=== PATIENT | male | born 1955 | race Caucasian/White ===

== ENCOUNTER 2017-05-13 08:32 | Emergency (ER) | payer OTHER ==
[2017-05-13 08:39] VITALS: BMI 23.6
[2017-05-13 08:41] VITALS: O2SAT 95
[2017-05-13] MEDS ORDERED: Sodium Chloride 0.9% 1,000 ML IV ONE (09:04)
--- NOTE | 2017-05-13 09:06 | ED PDOC ---
Arrival/HPI - General Chief Complaint: Abdominal Pain Time Seen by Provider: 05/13/17 09:03 Historian: Patient - History of Present Illness Narrative History of Present Illness (Text): 05/13/17 09:04 61 year old male whose past medical history includes diabetes presents to the emergency department with diffuse abdominal pain for the past 3 months. Denies nausea, vomiting or hematochezia. He states he has not seen a PMD. PMD: None Time/Duration: > month (x 3 momths) Symptom Onset: Gradual Symptom Course: Unchanged Modifying Factors (Text): None Past Medical History - Provider Review Nursing Documentation Reviewed: Yes - Infectious Disease Hx of Infectious Diseases: None - Tetanus Immunization Tetanus Immunization: Unknown - Cardiac Hx Hypertension: Yes - Pulmonary Hx Respiratory Disorders: No - Neurological Hx Neurological Disorder: No - HEENT Hx HEENT Disorder: No - Renal Hx Renal Disorder: No - Endocrine/Metabolic Hx Endocrine Disorders: Yes Hx Diabetes Mellitus Type 1: Yes - Hematological/Oncological Hx Blood Disorders: Yes Hx Hepatitis C: Yes - Integumentary Hx Dermatological Disorder: No - Musculoskeletal/Rheumatological Hx Musculoskeletal Disorders: No Hx Falls: No - Gastrointestinal Hx Gastrointestinal Disorders: Yes Other/Comment: Liver Disease - Genitourinary/Gynecological Hx Genitourinary Disorders: No - Psychiatric Hx Psychophysiologic Disorder: No Hx Substance Use: No - Anesthesia Hx Anesthesia: No - Suicidal Assessment Feels Threatened In Home Enviroment: No Family/Social History - Physician Review Nursing Documentation Reviewed: Yes Family/Social History: Unknown Family HX Smoking Status: Light Smoker < 10 Cigarettes Daily Hx Alcohol Use: No Hx Substance Use: No Allergies/Home Meds Allergies/Adverse Reactions: Allergies No Known Allergies Allergy (Verified 10/26/16 07:46) Home Medications: Home Meds Medication Instructions Recorded Confirmed Insulin Aspart Prot/Insuln Asp 15 units SC BID 04/24/16 05/13/17 [Novolog Mix 70-30 Vial] Review of Systems - Physician Review All systems were reviewed & negative as marked: Yes - Review of Systems Respiratory: absent: SOB Cardiovascular: absent: Chest Pain Gastrointestinal: Abdominal Pain. absent: Nausea, Vomiting, Hematochezia Physical Exam Vital Signs Reviewed: Yes Vital Signs Temp Pulse Resp BP Pulse Ox 05/13/17 14:34 68 16 114/54 L 95 05/13/17 12:17 98.2 F 71 18 117/70 95 05/13/17 10:32 97.7 F 72 18 128/75 95 05/13/17 08:32 97.7 F 83 18 120/71 95 Temperature: Afebrile Blood Pressure: Normal Pulse: Regular Respiratory Rate: Normal Appearance: Positive for: Well-Appearing, Non-Toxic Pain Distress: Mild Mental Status: Positive for: Alert and Oriented X 3 - Systems Exam Head: Present: Atraumatic, Normocephalic Pupils: Present: PERRL Extroacular Muscles: Present: EOMI Conjunctiva: Present: Normal Mouth: Present: Moist Mucous Membranes Neck: Present: Normal Range of Motion Respiratory/Chest: Present: Clear to Auscultation, Good Air Exchange. No: Respiratory Distress, Accessory Muscle Use Cardiovascular: Present: Regular Rate and Rhythm, Normal S1, S2. No: Murmurs Abdomen: Present: Normal Bowel Sounds, Hernias (Reducible umbilical hernia. Small right inguinal hernia.). No: Distention, Peritoneal Signs Back: Present: Normal Inspection Upper Extremity: Present: Normal Inspection. No: Cyanosis, Edema Lower Extremity: Present: Normal Inspection. No: Edema Neurological: Present: GCS=15, CN II-XII Intact, Speech Normal Skin: Present: Warm, Dry, Normal Color. No: Rashes Psychiatric: Present: Alert, Oriented x 3, Normal Insight, Normal Concentration Medical Decision Making ED Course and Treatment: Impression: 61 year old male whose past medical history includes diabetes presents to the emergency department with diffuse abdominal pain for the past 3 months. Plan: -- CT Abdomen/Pelvis -- Pepcid, Zofran -- IV fluids -- Labs -- Reassess and disposition Prior Visits: Notes and results from previous visits were reviewed. Patient last seen in ED on 10/26/16 for abdominal swelling and admitted for Hepatic cirrhosis, Ascites of liver, Edema extremities, Diabetes. Progress Notes: PROCEDURE: CT Abdomen and Pelvis with contrast House Registry Rn : Zack Briggs MD Report Date : 05/13/2017 13:15:21 IMPRESSION: Cirrhosis with chronic portal venous thrombosis. 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 No significant change - Lab Interpretations Lab Results: 05/13/17 09:35 05/13/17 09:35 Lab Results 05/13/17 14:08: POC Glucose (mg/dL) 347 H 05/13/17 12:05: POC Glucose (mg/dL) 339 H 05/13/17 10:40: pO2 49, VBG pH 7.33, VBG pCO2 49.0, VBG HCO3 25.8, VBG Total CO2 27.3, VBG O2 Sat (Calc) 88.2 H, VBG Base Excess -0.7 L, VBG Potassium 5.6 H , Glucose 468 H* D, Lactate 2.2 H, FiO2 21.0, Sodium 132.0, Chloride 101.0, Venous Blood Potassium 5.6 H 05/13/17 09:50: Urine Color Straw, Urine Appearance Clear, Urine pH 6.5, Ur Specific [place] 1.010, Urine Protein Negative, Urine Glucose (UA) >=1000, Urine Ketones Trace H, Urine Blood Trace-lysed H, Urine Nitrate Negative, Urine Bilirubin Negative, Urine Urobilinogen 0.2, Ur Leukocyte Esterase Negative, Urine RBC 0 - 2, Urine WBC Negative, Ur Epithelial Cells 0 - 2, Urine Bacteria Neg 05/13/17 09:35: Sodium 131 L, Potassium 5.0, Chloride 101, Carbon Dioxide 25, Anion Gap 10, BUN 8, Creatinine 0.5, Est GFR ( Amer) > 60, Est GFR (Non- Af Amer) > 60, Random Glucose 548 H* D, Calcium 9.7, Total Bilirubin 3.3 H, AST 41, ALT 41, Alkaline Phosphatase 159 H, Total Protein 6.9, Albumin 2.8 L, Globulin 4.1, Albumin/Globulin Ratio 0.7 L, Lipase 181 05/13/17 09:35: WBC 1.9 L* D, RBC 4.95, Hgb 14.9, Hct 43.1, MCV 87.1, MCH 30.1, MCHC 34.6, RDW 15.7 H, Plt Count 36 L*, MPV 11.6 H, Gran % 58.3, Lymph % (Auto) 25.4, [place] % (Auto) 11.4 H, Eos % (Auto) 3.8, Baso % (Auto) 1.1, Gran # 1.08 L, Lymph # 0.5 L, [place] # 0.2, Eos # 0.1, Baso # 0.02 - RAD Interpretation Radiology Orders: 05/13/17 09:03 ABD PELVIS PO & IV CONTRAST [CT] Stat - Medication Orders Current Medication Orders: Discontinued Medications Famotidine (Pepcid) 20 mg IVP STAT STA Stop: 05/13/17 09:05 Last Admin: 05/13/17 09:23 Dose: 20 mg Sodium Chloride (Sodium Chloride 0.9%) 1,000 mls @ 250 mls/hr IV .Q4H ONE Stop: 05/13/17 13:03 Last Admin: 05/13/17 09:21 Dose: 250 mls/hr Sodium Chloride (Sodium Chloride 0.9%) 1,000 mls @ 999 mls/hr IV .Q1H1M STA Stop: 05/13/17 10:59 Last Admin: 05/13/17 10:00 Dose: 999 mls/hr Sodium Chloride (Sodium Chloride 0.9%) 1,000 mls @ 999 mls/hr IV .Q1H1M STA Stop: 05/13/17 11:00 Last Admin: 05/13/17 10:43 Dose: 999 mls/hr Insulin Human Regular (Humulin R) 6 units IVP STAT STA Stop: 05/13/17 10:00 Last Admin: 05/13/17 10:28 Dose: 6 units Iohexol (Omnipaque 240 (50 Ml)) Confirm Administered Dose 50 ml .ROUTE .STK-MED ONE Stop: 05/13/17 09:26 Ondansetron HCl (Zofran Inj) 4 mg IVP STAT STA Stop: 05/13/17 09:05 Last Admin: 05/13/17 09:22 Dose: 4 mg - Scribe Statement The provider has reviewed the documentation as recorded by the Altaf Obrien Provider Scribe Attestation: All medical record entries made by the Altaf were at my direction and personally dictated by me. I have reviewed the chart and agree that the record accurately reflects my personal performance of the history, physical exam, medical decision making, and the department course for this patient. I have also personally directed, reviewed, and agree with the discharge instructions and disposition. Disposition/Present on Arrival - Present on Arrival Any Indicators Present on Arrival: Yes History of DVT/PE: No History of Uncontrolled Diabetes: Yes Urinary Catheter: No History of Decub. Ulcer: No History Surgical Site Infection Following: None - Disposition Have Diagnosis and Disposition been Completed?: Yes Diagnosis: Hyperglycemia Disposition: HOME/ ROUTINE Disposition Time: 13:30 Condition: IMPROVED Discharge Instructions (ExitCare): How to Check Your Blood Sugar (ED), Diabetes Mellitus Type 1 in Adults (ED) Additional Instructions: Thank you for letting us take care of you today. Your provider was Dr. Awan. You were treated for high blood sugar and abdominal pain. The emergency medical care you received today was directed at your acute symptoms. If you were prescribed any medication, please fill it and take as directed. It may take several days for your symptoms to resolve. Return to the Emergency Department if your symptoms worsen, do not improve, or if you have any other problems. Please contact your doctor or call one of the physicians/clinics you have been referred to that are listed on the Patient Visit Information form that is included in your discharge packet. Bring any paperwork you were given at discharge with you along with any medications you are taking to your follow up visit. Our treatment cannot replace ongoing medical care by a primary care provider (PCP) outside of the emergency department. Thank you for allowing the [facility] team to be part of your care today. Take your insulin as directed and check you blood sugar regularly. Follow up with your doctor at [facility] this week for followup. Referrals: PCP,NO [Primary Care Provider] - Follow up with primary
[2017-05-13] MEDS ORDERED: Iohexol 240 (50 ml) ONE (09:25)
[2017-05-13 09:41] LABS: BASO # 0.02 K/mm3 (0.0-2.0); BASO % 1.1 % (0.0-3.0); EOS # 0.1 (0.0-0.7); EOS % 3.8 % (1.5-5.0); GRAN # 1.08 (1.4-6.5); GRAN % 58.3 % (50.0-68.0); HEMOGLOBIN 14.9 gm/dL (14.0-18.0); LYMPH # 0.5 (1.2-3.4); LYMPH % 25.4 % (22.0-35.0); MEAN CELL VOLUME 87.1 fL (80.0-105.0); MEAN CORPUSCULAR HEMOGLOBIN 30.1 pg (25.0-35.0); MEAN CORPUSCULAR HGB CONC 34.6 g/dl (31.0-37.0); MEAN PLATELET VOLUME 11.6 fl (7.0-11.0); MONO # 0.2 (0.1-0.6); MONO % 11.4 % (1.0-6.0); RBC 4.95 10^6/uL (3.5-6.1); RED CELL DISTRIBUTION WIDTH 15.7 % (11.5-14.5)
[2017-05-13 09:51] LABS: ALB/GLOB RATIO 0.7 (1.1-1.8); ALBUMIN 2.8 g/dL (3.0-4.8); ALT/SGPT 41 U/L (7-56); AST/SGOT 41 U/L (15-59); BLOOD UREA NITROGEN 8 mg/dL (7-21); CALCIUM 9.7 mg/dL (8.4-10.5); GFR AFRICAN-AMERICAN > 60; GFR NON-AFRICAN AMERICAN > 60; LIPASE 181 U/L (23-300); WHITE BLOOD COUNT 1.9 10^3/ul (4.5-11.0)
[2017-05-13 09:52] LABS: PLATELET COUNT 36 10^3/uL (120.0-450.0)
[2017-05-13] MEDS ORDERED: Insulin Regular 1 UNITS/0.01 ML ML IVP STA (09:59)
[2017-05-13] MEDS ORDERED: Sodium Chloride 0.9% 1,000 ML IV STA ×2 (09:59→10:00)
[2017-05-13 10:06] LABS: PH,URINE 6.5 (4.7-8.0); URINE BILIRUBIN NEGATIVE (NEGATIVE); URINE BLOOD TRACE-LYSED (NEGATIVE); URINE GLUCOSE (UA) >=1000 mg/dL (NEGATIVE); URINE LEUKOCYTE ESTERASE NEGATIVE Leu/uL (NEGATIVE); URINE NITRATE NEGATIVE (NEGATIVE); URINE PROTEIN NEGATIVE mg/dL (<30 mg/dL); URINE UROBILINOGEN 0.2 E.U./dL (<1 E.U./dL)
[2017-05-13 10:07] LABS: URINE APPEARANCE CLEAR (CLEAR); URINE COLOR STRAW (YELLOW)
[2017-05-13 10:16] LABS: URINE BACTERIA NEG (NEG); URINE EPITHELIAL CELLS 0 - 2 /hpf (0-5); URINE RBC 0 - 2 /hpf (0-2); URINE WBC NEGATIVE /hpf (0-6)
[2017-05-13 10:53] LABS: VENOUS BLOOD GAS BASE EXCESS -0.7 mmol/L (0.0-2.0); VENOUS BLOOD GAS PO2 49 mm/Hg (30-55); VENOUS BLOOD PH 7.33 (7.32-7.43)
[2017-05-13 12:18] VITALS: TEMP 98.2
--- NOTE | 2017-05-13 13:16 | CT ---
PROCEDURE: CT Abdomen and Pelvis with contrast HISTORY: diffuse abd pain - mostly to lower quadrants COMPARISON: CT dated 05/03/2016 TECHNIQUE: Contrast dose: 100 cc of Omni 350 Radiation dose: Total exam DLP = 485 mGy-cm. This CT exam was performed using one or more of the following dose reduction techniques: Automated exposure control, adjustment of the mA and/or kV according to patient size, and/or use of iterative reconstruction technique. FINDINGS: LOWER THORAX: Unremarkable. LIVER: There is cirrhosis of the liver. There is chronic portal venous obstruction with cavernous transformation. There multiple collaterals in the splenic hilum GALLBLADDER AND BILE DUCTS: Unremarkable. PANCREAS: There is chronic pancreatitis with multiple calcifications and atrophy with dilatation of the pancreatic duct SPLEEN: There is splenomegaly and multiple splenic varices which drain into the left renal vein. The spleen is enlarged measuring 18 cm in length ADRENALS: Unremarkable. No mass. KIDNEYS AND URETERS: Unremarkable. No hydronephrosis. No solid mass. VASCULATURE: Unremarkable. No aortic aneurysm. BOWEL: Unremarkable. No obstruction. No gross mural thickening. APPENDIX: Normal appendix. PERITONEUM: There is a moderate amount of ascites and mesenteric edema LYMPH NODES: Unremarkable. No enlarged lymph nodes. BLADDER: Unremarkable. REPRODUCTIVE: Unremarkable. BONES: No acute fracture. OTHER FINDINGS: None. IMPRESSION: Cirrhosis with chronic portal venous thrombosis. 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 No significant change
[2017-05-13 14:35] VITALS: BP 114/54; PULSE 68; RESP 16
--- NOTE | 2017-05-13 15:40 | CARD ---
APPROVED REPORT EKG Measurement Heart [id number] [id number] <Conclusion> Normal sinus rhythm NSSTW changes with biphasic T waves V 3 - 5 Prolonged QTc
== END 2017-05-13 14:38 | disposition home or self-care (01) ==
LOC: ED 08:32
DX: E10.65 Type 1 diabetes mellitus with hyperglycemia (principal); I10 Essential (primary) hypertension; B19.20 Unspecified viral hepatitis C without hepatic coma; Z72.0 Tobacco use
CPT/HCPCS: 74177; 80053; 81001; 82803; 82948; 83690; 85025; 93005; 96361; 96374; 96375; 99285; J2405; J7040; Q9966

== ENCOUNTER 2018-01-08 20:07 | Inpatient (IN) | payer MEDICAID, OTHER ==
[2018-01-08 20:07] VITALS: BMI 23.6
--- NOTE | 2018-01-08 21:23 | ED PDOC ---
Arrival/HPI - General Chief Complaint: Abdominal Pain Time Seen by Provider: 01/08/18 20:10 Historian: Patient - History of Present Illness Narrative History of Present Illness (Text): 01/08/18 20:40 Dilan Feng is a 62 year old male, whose past medical history includes hepatitis C, cirrhosis, bilateral inguinal hernias, and IDDM, who presents to the Emergency department complaining of lower abdominal pain today. Patient reports associated bilateral groin pain. Patient denies any fever, chills, chest pain, shortness of breath, nausea, vomiting, diarrhea, neck pain, headache , dizziness, or any other complaints. Symptom Onset: Gradual Symptom Course: Unchanged Activities at Onset: Light Context: Home Past Medical History - Provider Review Nursing Documentation Reviewed: Yes - Infectious Disease Hx of Infectious Diseases: None - Tetanus Immunization Tetanus Immunization: Unknown - Cardiac Hx Hypertension: Yes - Pulmonary Hx Respiratory Disorders: No - Neurological Hx Neurological Disorder: No - HEENT Hx HEENT Disorder: No - Renal Hx Renal Disorder: No - Endocrine/Metabolic Hx Diabetes Mellitus Type 1: Yes - Hematological/Oncological Hx Cirrhosis: Yes Hx Hepatitis C: Yes Other/Comment: Inguinal hernia - Integumentary Hx Dermatological Disorder: No - Musculoskeletal/Rheumatological Hx Musculoskeletal Disorders: No Hx Falls: Yes - Gastrointestinal Hx Gastrointestinal Disorders: Yes Other/Comment: Liver Disease - Genitourinary/Gynecological Hx Genitourinary Disorders: No - Psychiatric Hx Psychophysiologic Disorder: No Hx Substance Use: No - Anesthesia Hx Anesthesia: No Hx Anesthesia Reactions: No - Suicidal Assessment Feels Threatened In Home Enviroment: No Family/Social History - Physician Review Nursing Documentation Reviewed: Yes Family/Social History: Unknown Family HX Smoking Status: Light Smoker < 10 Cigarettes Daily Hx Alcohol Use: No Hx Substance Use: No Allergies/Home Meds Allergies/Adverse Reactions: Allergies No Known Allergies Allergy (Verified 01/08/18 20:25) Review of Systems - Physician Review All systems were reviewed & negative as marked: Yes - Review of Systems Constitutional: Normal. absent: Fevers Eyes: Normal ENT: Normal Respiratory: Normal. absent: SOB, Cough Cardiovascular: Normal. absent: Chest Pain Gastrointestinal: Abdominal Pain. absent: Diarrhea, Nausea, Vomiting Genitourinary Male: Normal. absent: Dysuria, Frequency, Hematuria, Urinary Output Changes Musculoskeletal: Normal. absent: Back Pain, Neck Pain Skin: Normal. absent: Rash Neurological: Normal. absent: Headache, Dizziness Endocrine: Normal Hemo/Lymphatic: Normal Psychiatric: Normal Physical Exam Vital Signs Reviewed: Yes Vital Signs Temp Pulse Resp BP Pulse Ox 01/09/18 12:00 75 16 124/72 98 01/09/18 11:01 98.1 F 92 H 17 122/77 01/09/18 09:03 98.0 F 76 18 119/63 01/09/18 08:39 97.8 F 72 18 117/70 01/09/18 08:05 97.4 F L 84 17 123/75 99 01/09/18 05:09 78 18 123/74 98 01/09/18 02:17 121/76 01/09/18 00:17 85 17 133/72 98 01/08/18 21:45 98.2 F 90 20 132/77 97 Temperature: Afebrile Blood Pressure: Normal Pulse: Regular Respiratory Rate: Normal Appearance: Positive for: Well-Appearing, Non-Toxic, Comfortable Pain Distress: None Mental Status: Positive for: Alert and Oriented X 3 - Systems Exam Head: Present: Atraumatic, Normocephalic Pupils: Present: PERRL Extroacular Muscles: Present: EOMI Conjunctiva: Present: Normal Mouth: Present: Moist Mucous Membranes Neck: Present: Normal Range of Motion Respiratory/Chest: Present: Clear to Auscultation, Good Air Exchange. No: Respiratory Distress, Accessory Muscle Use Cardiovascular: Present: Regular Rate and Rhythm, Normal S1, S2. No: Murmurs Abdomen: Present: Distention (Ascites), Normal Bowel Sounds, Hernias (Bilateral inguinal hernias). No: Tenderness, Peritoneal Signs Back: Present: Normal Inspection Upper Extremity: Present: Normal Inspection. No: Cyanosis, Edema Lower Extremity: Present: Edema (+2 edema of bilateral lower extremities), NORMAL PULSES, Normal ROM, Neurovascularly Intact, Capillary Refill < 2 s. No: CALF TENDERNESS, Tenderness, Deformity Neurological: Present: GCS=15, CN II-XII Intact, Speech Normal Skin: Present: Warm, Dry, Normal Color. No: Rashes Psychiatric: Present: Alert, Oriented x 3, Normal Insight, Normal Concentration Medical Decision Making ED Course and Treatment: 01/08/18 20:40 Impression: 62 year old male complaining of lower abdominal pain today. Plan: -- CT Abdomen and Pelvis w/o contrast -- EKG -- Chest X-ray -- Labs, cardiac enzymes, amylase, lipase, blood cultures -- Urinalysis, urine cultures -- Reassess and disposition Prior Visits: Notes and results from previous visits were reviewed. On 12/19/2017, pt was seen in the [facility] Emergency department for abdominal pain. Pt was d/c home. Progress Notes: 01/08/18 21:52 Reviewed EKG, NSR at [address] bpm[address] Non-specific ST/T wave changes. 01/08/18 23:58 Reviewed radiolohu, Chest X-ray shows no acute processes. CT Abdomen and Pelvis shows: Lower thorax: Trace left pleural effusion. ABDOMEN: Liver: The liver is shrunken and nodular consistent with end-stage cirrhosis. Gallbladder and bile ducts: The gallbladder is limited. The Pancreas: There are punctate pancreatic parenchymal calcifications, consistent with chronic pancreatitis. Dilated pancreatic duct, unchanged. Spleen: There is marked splenomegaly measuring 17.8 cm. There are numerous varices noted in the upper abdomen. Adrenals: Unremarkable. No mass. Kidneys and ureters: 2 mm stone in the right kidney. The left kidney is normal. No obstructing stones. No hydronephrosis. Stomach and bowel: The small and large bowel are unopacified and limited. There are a few mildly distended gas-filled loops of small bowel which could be secondary to localized ileus. No bowel obstruction. Appendix: A normal appendix is identified. PELVIS: Bladder: Unremarkable. No stones. Reproductive: Unremarkable as visualized. ABDOMEN and PELVIS: Intraperitoneal space: There is a large amount of ascites in the abdomen and pelvis. No free air. Bones/joints: There are degenerative changes at multiple levels in the thoracic and lumbar spine. No acute fracture. No dislocation. Soft tissues: Bilateral nonobstructing inguinal hernias. There is a large amount of fluid in the scrotum and inguinal canal. Diffuse soft tissue edema in the abdominal and pelvic wall consistent with anasarca. Vasculature: The vasculature demonstrates diffuse moderate atherosclerotic calcification. There is no evidence of an abdominal aortic aneurysm. Lymph nodes: Unremarkable. No enlarged lymph nodes. IMPRESSION: Extensive ascites and anasarca. End-stage cirrhosis, splenomegaly and portal hypertension. Large amount of fluid in the scrotum and inguinal canals bilaterally. Chronic pancreatitis and dilated pancreatic duct, unchanged. 01/08/18 23:59 Case discussed with medical staff coordinator ethnographic materials conservator, who is aware and agrees with plan. 01/09/18 00:[address] Boyle, who is aware and agrees with plan. Accepts pt in to hospitalist service. Pt will be admitted to [facility] for ascites and hyperglycemia. - Lab Interpretations Lab Results: 01/08/18 21:45 01/08/18 22:00 Lab Results 01/08/18 22:00: NT-Pro-B Natriuret Pep 215 01/08/18 22:00: Sodium 136, Potassium 4.2, Chloride 99, Carbon Dioxide 28, Anion Gap 13, BUN 8, Creatinine 0.5 L, Est GFR ( Amer) > 60, Est GFR (Non -Af Amer) > 60, Random Glucose 455 H*, Calcium 8.8, Total Bilirubin 3.5 H, AST 40, ALT 39, Alkaline Phosphatase 158 H, Lactate Dehydrogenase 665, Total Creatine Kinase 171, Troponin I 0.01, Total Protein 6.5, Albumin 2.6 L, Globulin 3.9, Albumin/Globulin Ratio 0.7 L, Amylase 33 L, Lipase 230 01/08/18 21:45: PT 16.4 H, INR 1.43 H, APTT 33.5 01/08/18 21:45: WBC 2.5 L* D, RBC 4.70, Hgb 14.2, Hct 42.9, MCV 91.3, MCH 30.2, MCHC 33.1, RDW 16.7 H, Plt Count 30 L*, MPV 9.8, Gran % 62.9, Lymph % (Auto) 21.3 L, [place] % (Auto) 12.6 H, Eos % (Auto) 2.0, Baso % (Auto) 1.2, Gran # 1.59, Lymph # (Auto) 0.5 L, [place] # (Auto) 0.3, Eos # (Auto) 0.1, Baso # (Auto) 0.03 I have reviewed the lab results: Yes - RAD Interpretation Radiology Orders: 01/08/18 20:40 ABD & PELVIS W/O PO OR IV CONT [CT] Stat 01/08/18 20:41 CHEST ONE VIEW [RAD] Stat Library Director: ED Physician, Radiologist - EKG Interpretation Interpreted by ED Physician: Yes Type: 12 lead EKG - Medication Orders Current Medication Orders: Famotidine (Pepcid) 20 mg IVP DAILY [facility] Last Admin: 01/09/18 12:08 Dose: 20 mg IVP Administration Document 01/09/18 12:08 SF (Rec: 01/09/18 12:08 SF [id number]) Charges for Administration # of IVP Administrations 1 Ibuprofen (Motrin Tab) 600 mg PO Q6 PRN PRN Reason: Pain, moderate (4-7) Insulin Human Lispro (Humalog Low) 0 units SC ACHS [facility] PRN Reason: Protocol Insulin Human Lispro (Humalog) 10 units SC [facility] Stop: 01/09/18 22:01 Insulin Human Regular (Humulin R Med) 0 units SC [facility] PRN Reason: Protocol Last Admin: 01/09/18 18:12 Dose: 5 units MAR Blood Glucose Document 01/09/18 18:12 Y (Rec: 01/09/18 18:12 [id number]) Blood Glucose Finger Stick Blood Glucose (70-120) 263 Subcutaneous Administrations Document 01/09/18 18:12 Y (Rec: 01/09/18 18:12 [id number]) Injection Site MAR Injection Site Left Arm Charges for Administration # of Subcutaneous Administrations 1 Lactulose (Enulose) 20 gm PO BID [facility] Last Admin: 01/09/18 18:11 Dose: 20 gm Spironolactone (Aldactone) 100 mg PO DAILY [facility] Last Admin: 01/09/18 10:30 Dose: 100 mg Discontinued Medications Furosemide (Lasix) 20 mg IVP STAT STA Stop: 01/09/18 01:26 Last Admin: 01/09/18 02:17 Dose: 20 mg MAR Blood Pressure Document 01/09/18 02:17 RD (Rec: 01/09/18 02:17 RD [id number]) Blood Pressure Blood Pressure (100/60-150/90) 121/76 IVP Administration Document 01/09/18 02:17 RD (Rec: 01/09/18 02:17 RD [id number]) Charges for Administration # of IVP Administrations 1 Insulin Human Lispro (Humalog) 15 units SC ONCE ONE Stop: 01/09/18 08:02 Last Admin: 01/09/18 11:50 Dose: Insulin Human Regular (Humulin R) 8 units IVP STAT STA Stop: 01/09/18 00:01 Last Admin: 01/09/18 00:16 Dose: 8 units MAR Blood Glucose Document 01/09/18 00:16 RD (Rec: 01/09/18 00:16 RD [id number]) Blood Glucose Finger Stick Blood Glucose (70-120) 450 IVP Administration Document 01/09/18 00:16 RD (Rec: 01/09/18 00:16 RD [id number]) Charges for Administration # of IVP Administrations 1 - Scribe Statement The provider has reviewed the documentation as recorded by the Scribe Juliette Concepcion All medical record entries made by the Scribe were at my direction and personally dictated by me. I have reviewed the chart and agree that the record accurately reflects my personal performance of the history, physical exam, medical decision making, and the department course for this patient. I have also personally directed, reviewed, and agree with the discharge instructions and disposition. Disposition/Present on Arrival - Present on Arrival Any Indicators Present on Arrival: No History of DVT/PE: No History of Uncontrolled Diabetes: Yes Urinary Catheter: No History of Decub. Ulcer: No History Surgical Site Infection Following: None - Disposition Have Diagnosis and Disposition been Completed?: Yes Diagnosis: Abdominal distension, Ascites of liver Disposition: HOSPITALIZED Disposition Time: 00:00 Condition: FAIR
[2018-01-08 22:22] LABS: BASO # 0.03 K/mm3 (0.0-2.0); BASO % 1.2 % (0.0-3.0); EOS # 0.1 (0.0-0.7); GRAN # 1.59 (1.4-6.5); GRAN % 62.9 % (50.0-68.0); HEMOGLOBIN 14.2 g/dL (14.0-18.0); LYMPH # 0.5 (1.2-3.4); LYMPH % 21.3 % (22.0-35.0); MEAN CELL VOLUME 91.3 fl (80.0-105.0); MEAN CORPUSCULAR HEMOGLOBIN 30.2 pg (25.0-35.0); MEAN CORPUSCULAR HGB CONC 33.1 g/dl (31.0-37.0); MEAN PLATELET VOLUME 9.8 fl (7.0-11.0); MONO # 0.3 (0.1-0.6); MONO % 12.6 % (1.0-6.0); RED CELL DISTRIBUTION WIDTH 16.7 % (11.5-14.5)
[2018-01-08 22:28] LABS: INR 1.43 (0.93-1.08); PARTIAL THROMBOPLASTIN TIME 33.5 Seconds (25.1-36.5); PROTHROMBIN TIME 16.4 SECONDS (9.4-12.5)
[2018-01-08 22:43] LABS: PLATELET COUNT 30 10^3/uL (120.0-450.0); WHITE BLOOD COUNT 2.5 10^3/ul (4.5-11.0)
[2018-01-08 23:28] LABS: ALB/GLOB RATIO 0.7 (1.1-1.8); ALBUMIN 2.6 g/dL (3.0-4.8); ALT/SGPT 39 U/L (7-56); AMYLASE 33 U/L (35-125); AST/SGOT 40 U/L (17-59); BLOOD UREA NITROGEN 8 mg/dL (7-21); CALCIUM 8.8 mg/dL (8.4-10.5); GFR AFRICAN-AMERICAN > 60; GFR NON-AFRICAN AMERICAN > 60; LIPASE 230 U/L (23-300)
--- NOTE | 2018-01-08 23:55 | CT ---
EXAM: CT Abdomen and Pelvis Without Intravenous Contrast CLINICAL HISTORY: 62 years old, male; Pain and signs and symptoms; Other: Swelling; Abdominal pain; Generalized; Additional info: Abd pain TECHNIQUE: Axial computed tomography images of the abdomen and pelvis without intravenous contrast. All CT scans at this facility use one or more dose reduction techniques, viz.: automated exposure control; ma/kV adjustment per patient size (including targeted exams where dose is matched to indication; i.e. head); or iterative reconstruction technique. Coronal and sagittal reformatted images were created and reviewed. COMPARISON: CT - ABD PELVIS PO IV CONTRAST 2017-05-13 11:16 FINDINGS: Lower thorax: Trace left pleural effusion. ABDOMEN: Liver: The liver is shrunken and nodular consistent with end-stage cirrhosis. Gallbladder and bile ducts: The gallbladder is limited. The Pancreas: There are punctate pancreatic parenchymal calcifications, consistent with chronic pancreatitis. Dilated pancreatic duct, unchanged. Spleen: There is marked splenomegaly measuring 17.8 cm. There are numerous varices noted in the upper abdomen. Adrenals: Unremarkable. No mass. Kidneys and ureters: 2 mm stone in the right kidney. The left kidney is normal. No obstructing stones. No hydronephrosis. Stomach and bowel: The small and large bowel are unopacified and limited. There are a few mildly distended gas-filled loops of small bowel which could be secondary to localized ileus. No bowel obstruction. Appendix: A normal appendix is identified. PELVIS: Bladder: Unremarkable. No stones. Reproductive: Unremarkable as visualized. ABDOMEN and PELVIS: Intraperitoneal space: There is a large amount of ascites in the abdomen and pelvis. No free air. Bones/joints: There are degenerative changes at multiple levels in the thoracic and lumbar spine. No acute fracture. No dislocation. Soft tissues: Bilateral nonobstructing inguinal hernias. There is a large amount of fluid in the scrotum and inguinal canal. Diffuse soft tissue edema in the abdominal and pelvic wall consistent with anasarca. Vasculature: The vasculature demonstrates diffuse moderate atherosclerotic calcification. There is no evidence of an abdominal aortic aneurysm. Lymph nodes: Unremarkable. No enlarged lymph nodes. IMPRESSION: Extensive ascites and anasarca. End-stage cirrhosis, splenomegaly and portal hypertension. Large amount of fluid in the scrotum and inguinal canals bilaterally. Chronic pancreatitis and dilated pancreatic duct, unchanged.
[2018-01-09] MEDS ORDERED: Insulin Regular 1 UNITS/0.01 ML ML IVP STA
[2018-01-09 00:07] LABS: TROPONIN I 0.01 ng/mL
--- NOTE | 2018-01-09 01:45 | CP.PCM.HP ---
<Mita Angel - Last Filed: 01/09/18 01:32> History of Present Illness - History of Present Illness History of Present Illness: Mita Angel, PGY1, Medicine H&P for Dr Boyle: CC: abdominal pain 62 year old male with PMH Hep C, cirrhosis, bilateral inguinal hernias, IDDM, presents for lower abdominal pain for past month. Pt states that he has not been taking his lasix, aldatone and other home meds for past month (as he ran out of them, no PMD). He has abdominal distention, ascites, scrotal swelling, bilateral leg swelling, jaundice. He does not have a PMD as he cannot afford it. Denies fever, chills, confusion/lethargy, headache, cp, sob, diarrhea/ constipation, urinary symptoms, easy bleeding/bruising, hematemesis, hematochezia, melena. He was previously seen at [facility] in 07/2017 for hepatic encephalopathy/abdominal pain. In ED, pt afebrile with stable vitals, leukopenic 2.5 (prev 1.5-2.1), ANC 1550, plt 30 (prev 36-41), t bili 3.5 (prev 3.9), elevated coags, BS 455. Given 8 units of regular insulin. EKG showed SR, no new changes (compared with prev EKG 07/2017), initial trop 0.01, denies cp, sob. 12 point ROS obtained and neg, except as noted per HPI. PMD: none PMH: Hepatitis C, Cirrhosis, R inguinal hernia, IDDM, noncompliance PSH: Denies All: NKA FHx: Denies SH: current smoker (5 cig/day for 20 years), denies current or history of alcohol or illicit drug use. Lives at home with and son. Able to ambulate to the bathroom independently. Meds: See MAR, noncompliant with them Allergies: NKDA Present on Admission - Present on Admission Any Indicators Present on Admission: No History of DVT/PE: No History of Uncontrolled Diabetes: Yes Urinary Catheter: No Decubitus Ulcer Present: No Review of Systems - Review of Systems All systems: reviewed and no additional remarkable complaints except Review of Systems: as per HPI Past Patient History - Infectious Disease Hx of Infectious Diseases: None - Tetanus Immunizations Tetanus Immunization: Unknown - Past Medical History & Family History Past Medical History?: Yes - Past Social History Smoking Status: Light Smoker < 10 Cigarettes Daily - CARDIAC Hx Hypertension: Yes - PULMONARY Hx Respiratory Disorders: No - NEUROLOGICAL Hx Neurological Disorder: No - HEENT Hx HEENT Problems: No - RENAL Hx Chronic Kidney Disease: No - ENDOCRINE/METABOLIC Hx Diabetes Mellitus Type 1: Yes - HEMATOLOGICAL/ONCOLOGICAL Hx Cirrhosis: Yes Hx Hepatitis C: Yes Other/Comment: Inguinal hernia - INTEGUMENTARY Hx Dermatological Problems: No - MUSCULOSKELETAL/RHEUMATOLOGICAL Hx Musculoskeletal Disorders: No Hx Falls: Yes - GASTROINTESTINAL Hx Gastrointestinal Disorders: Yes Other/Comment: Liver Disease - GENITOURINARY/GYNECOLOGICAL Hx Genitourinary Disorders: No - PSYCHIATRIC Hx Psychophysiologic Disorder: No Hx Substance Use: No - SURGICAL HISTORY Hx Surgeries: No - ANESTHESIA Hx Anesthesia: No Hx Anesthesia Reactions: No Meds Allergies/Adverse Reactions: Allergies Allergy/AdvReac Type Severity Reaction Status Date / Time No Known Allergies Allergy Verified 01/08/18 20:25 Physical Exam - Constitutional Appears: Non-toxic, No Acute Distress - Head Exam Head Exam: ATRAUMATIC, NORMOCEPHALIC - Eye Exam Eye Exam: EOMI, PERRL, Scleral icterus. absent: Conjunctival injection, Nystagmus, Periorbital swelling, Periorbital tenderness Pupil Exam: NORMAL ACCOMODATION, PERRL. absent: Fixed, Irregular, Unequal - ENT Exam ENT Exam: Mucous Membranes Moist - Neck Exam Neck exam: Positive for: Full Rom - Respiratory Exam Respiratory Exam: Clear to Auscultation Bilateral, NORMAL BREATHING PATTERN. absent: Accessory Muscle Use, Chest Wall Tenderness, Rhonchi, Wheezes, Respiratory Distress - Cardiovascular Exam Cardiovascular Exam: RRR, +S1, +S2. absent: Tachycardia, Systolic Murmur - GI/Abdominal Exam GI & Abdominal Exam: Distended, Normal Bowel Sounds, Tenderness (lower abdominal area). absent: Rebound, Rigid Additional comments: + bulging flanks, shifting dullness. Negative fluid wave test. No caput medusa. - Extremities Exam Extremities exam: Positive for: normal capillary refill, pedal edema, pedal pulses present. Negative for: calf tenderness, tenderness Additional comments: bilateral entire leg swelling 3+ extending to scrotal area. - Back Exam Back exam: NORMAL INSPECTION - Neurological Exam Neurological exam: Alert, CN II-XII Intact, Oriented x3 Additional comments: no asterixis - Psychiatric Exam Psychiatric exam: Normal Affect, Normal Mood - Skin Skin Exam: Dry, Warm Additional comments: jaundice Results - Vital Signs Recent Vital Signs: Last Vital Signs Temp 98.2 F 01/08/18 21:45 Pulse 85 01/09/18 00:17 Resp 17 01/09/18 00:17 BP 133/72 01/09/18 00:17 Pulse Ox 98 01/09/18 00:17 - Labs Result Diagrams: 01/08/18 21:45 01/08/18 22:00 Labs: Laboratory Results - last 24 hr 01/08/18 01/08/18 01/08/18 21:45 21:45 22:00 WBC 2.5 L* D RBC 4.70 Hgb 14.2 Hct 42.9 MCV 91.3 MCH 30.2 MCHC 33.1 RDW 16.7 H Plt Count 30 L* MPV 9.8 Gran % 62.9 Lymph % (Auto) 21.3 L Green % (Auto) 12.6 H Eos % (Auto) 2.0 Baso % (Auto) 1.2 Gran # 1.59 Lymph # (Auto) 0.5 L Green # (Auto) 0.3 Eos # (Auto) 0.1 Baso # (Auto) 0.03 PT 16.4 H INR 1.43 H APTT 33.5 Sodium 136 Potassium 4.2 Chloride 99 Carbon Dioxide 28 Anion Gap 13 BUN 8 Creatinine 0.5 L Est GFR ( Amer) > 60 Est GFR (Non-Af Amer) > 60 Random Glucose 455 H* Calcium 8.8 Total Bilirubin 3.5 H AST 40 ALT 39 Alkaline Phosphatase 158 H Lactate Dehydrogenase 665 Total Creatine Kinase 171 Troponin I 0.01 Total Protein 6.5 Albumin 2.6 L Globulin 3.9 Albumin/Globulin Ratio 0.7 L Amylase 33 L Lipase 230 Assessment & Plan - Assessment and Plan (Free Text) Assessment: 62 year old male with PMH Hepatitis C, cirrhosis, bilateral inguinal hernias, DM , presents for abdominal pain, scrotal/leg swelling, found to have extensive ascites/anasarca on imaging: Abdominal pain/scrotal and leg swellin/2 ascites 2/2 cirrhosis - Pt has hx of Hep C - CT Abdomen and Pelvis shows: Extensive ascites and anasarca. End-stage cirrhosis, splenomegaly and portal hypertension. Large amount of fluid in the scrotum and inguinal canals bilaterally. Chronic pancreatitis and dilated pancreatic duct, unchanged. - MELD 16 - 6% 3 month mortality - Ammonia level. Pt currently AAOx4. - Given Lasix 20 mg IV x1. - Started on Lasix 20 IV, cont with home Aldactone 100mg PO, lactulose bid - NPO - I&Os - F/u Scrotal US - GI consulted. F/u recs - IR consulted. F/u recs - Urology c/s. - Echocardiogram - Cont to monitor - Motrin prn Leukopenia: - ANC 1550 - Afebrile - daily cbc - consider neutropenic precautions if ANC<1000. 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 F/u UA. - Given 8 units regular insulin in ED - Started on ISS - moderate - Cont to monitor - NPO PPX: SCDs, Pepcid Isolation room: found to have bedbugs - pt washed in ED Discussed with Dr Boyle. - Date & Time Date: 01/09/18 Time: 02:25 <Natalio Boyle - Last Filed: 01/09/18 04:14> Results - Vital Signs Recent Vital Signs: Last Vital Signs Temp 98.2 F 01/08/18 21:45 Pulse 85 01/09/18 00:17 Resp 17 01/09/18 00:17 BP 121/76 01/09/18 02:17 Pulse Ox 98 01/09/18 00:17 - Labs Result Diagrams: 01/08/18 21:45 01/08/18 22:00 Labs: Laboratory Results - last 24 hr 01/09/18 01/09/18 01/09/18 02:05 02:05 02:05 Ammonia 23 Urine Color Yellow Urine Appearance Clear Urine pH 6.0 Ur Specific [place] 1.010 Urine Protein Negative Urine Glucose (UA) >=1000 Urine Ketones Trace H Urine Blood Trace-intact H Urine Nitrate Negative Urine Bilirubin Negative Urine Urobilinogen 0.2 Ur Leukocyte Esterase Negative Urine RBC 0 - 2 Urine WBC 0 - 2 Ur Epithelial Cells 0 - 2 BBK History Checked No verified bt Attending/Attestation - Attestation I have personally seen and examined this patient.: Yes I have fully participated in the care of the patient.: Yes I have reviewed all pertinent clinical information: Yes Notes (Text): 01/09/18 04:13 Patient was seen when he was in room # 9 in the ER. Agree with history, physical examination, assessment and plan.
[2018-01-09 03:28] LABS: URINE BILIRUBIN NEGATIVE (NEGATIVE); URINE BLOOD TRACE-INTACT (NEGATIVE); URINE GLUCOSE (UA) >=1000 mg/dL (NEGATIVE); URINE LEUKOCYTE ESTERASE NEGATIVE Leu/uL (NEGATIVE); URINE PROTEIN NEGATIVE mg/dL (<30 mg/dL); URINE UROBILINOGEN 0.2 E.U./dL (<1 E.U./dL)
[2018-01-09 03:34] LABS: URINE APPEARANCE CLEAR (CLEAR); URINE COLOR YELLOW (YELLOW)
[2018-01-09 04:08] LABS: URINE EPITHELIAL CELLS 0 - 2 /hpf (0-5); URINE RBC 0 - 2 /hpf (0-2); URINE WBC 0 - 2 /hpf (0-6)
[2018-01-09 05:48] LABS: BASO # 0.01 K/mm3 (0.0-2.0); BASO % 0.5 % (0.0-3.0); EOS # 0.1 (0.0-0.7); EOS % 2.4 % (1.5-5.0); GRAN # 1.19 (1.4-6.5); GRAN % 56.7 % (50.0-68.0); HEMOGLOBIN 13.7 g/dL (14.0-18.0); LYMPH # 0.5 (1.2-3.4); LYMPH % 23.3 % (22.0-35.0); MEAN CELL VOLUME 89.3 fl (80.0-105.0); MEAN CORPUSCULAR HEMOGLOBIN 29.9 pg (25.0-35.0); MEAN CORPUSCULAR HGB CONC 33.5 g/dl (31.0-37.0); MEAN PLATELET VOLUME 9.4 fl (7.0-11.0); MONO # 0.4 (0.1-0.6); MONO % 17.1 % (1.0-6.0); RBC 4.58 10^6/uL (3.5-6.1); RED CELL DISTRIBUTION WIDTH 17.1 % (11.5-14.5)
[2018-01-09 06:00] LABS: PLATELET COUNT 28 10^3/uL (120.0-450.0); WHITE BLOOD COUNT 2.1 10^3/ul (4.5-11.0)
[2018-01-09 06:07] LABS: ALB/GLOB RATIO 0.7 (1.1-1.8); ALBUMIN 2.5 g/dL (3.0-4.8); ALT/SGPT 36 U/L (7-56); AST/SGOT 37 U/L (17-59); BLOOD UREA NITROGEN 7 mg/dL (7-21); CALCIUM 8.6 mg/dL (8.4-10.5); GFR AFRICAN-AMERICAN > 60; GFR NON-AFRICAN AMERICAN > 60
[2018-01-09] MEDS ORDERED: Insulin Lispro 1 UNITS/0.01 ML SC ONE ×2 (08:01)
[2018-01-09] MEDS: Insulin Reg-MEDIUM-Coverage SC SCH ×4 (08:05→22:05)
[2018-01-09] MEDS ORDERED: Insulin Regular 1 UNITS/0.01 ML ML ONE (08:05)
--- NOTE | 2018-01-09 09:34 | RAD ---
PROCEDURE: CHEST RADIOGRAPH, 1 VIEW HISTORY: Chest pain COMPARISON: 05/01/2016. FINDINGS: LUNGS: The lungs are clear. PLEURA: No pneumothorax or pleural fluid seen. CARDIOVASCULAR: Normal. OSSEOUS STRUCTURES: No significant abnormalities. VISUALIZED UPPER ABDOMEN: Normal. OTHER FINDINGS: None. IMPRESSION: No active pulmonary disease.
--- NOTE | 2018-01-09 10:33 | CARD ---
APPROVED REPORT EKG Measurement Heart [id number] <Conclusion> Normal sinus rhythm Nonspecific T wave abnormality
--- NOTE | 2018-01-09 14:24 | CP.PCM.CON ---
<Kvng Rebolledo - Last Filed: 01/09/18 14:13> History of Present Illness - History of Present Illness History of Present Illness: GI Consult - Dr Stein 62 M with a PMHx of known and untreated Hep C, end stage liver cirrhosis, chronic pancreatitis, hepatic encephalopathy and IDDM presented to [facility] ED with complaints of lower abdominal pain x1 month. Pt states that he has been noncompliant with his home meds and subsequently began to retain more and more fluid. The patient noted abdominal distention, LE edema, scrotal swelling, and jaundice. Pt admitted to abdominal pain secondary to distention, and mild sob. Pt was seen and examined at bedside. Pt placed on isolation due to concerns of bedbugs. Pt denied fever, chills, confusion, chest pains, hematemesis, hematochezia, melena. PMH: as above PSH: Denied SH: current smoker (5 cig/day for 20 years), denies current or history of alcohol or illicit drug use. Meds: noncompliant, lasix, aldactone, lactulose Allergies: NKDA Review of Systems - Review of Systems Review of Systems: as per HPI otherwise negative Past Patient History - Infectious Disease Hx of Infectious Diseases: None - Tetanus Immunizations Tetanus Immunization: Unknown - Past Medical History & Family History Past Medical History?: Yes - Past Social History Smoking Status: Light Smoker < 10 Cigarettes Daily - CARDIAC Hx Hypertension: Yes - PULMONARY Hx Respiratory Disorders: No - NEUROLOGICAL Hx Neurological Disorder: No - HEENT Hx HEENT Problems: No - RENAL Hx Chronic Kidney Disease: No - ENDOCRINE/METABOLIC Hx Diabetes Mellitus Type 1: Yes - HEMATOLOGICAL/ONCOLOGICAL Hx Cirrhosis: Yes Hx Hepatitis C: Yes Other/Comment: Inguinal hernia - INTEGUMENTARY Hx Dermatological Problems: No - MUSCULOSKELETAL/RHEUMATOLOGICAL Hx Musculoskeletal Disorders: No Hx Falls: Yes - GASTROINTESTINAL Hx Gastrointestinal Disorders: Yes Other/Comment: Liver Disease - GENITOURINARY/GYNECOLOGICAL Hx Genitourinary Disorders: No - PSYCHIATRIC Hx Psychophysiologic Disorder: No Hx Substance Use: No - SURGICAL HISTORY Hx Surgeries: No - ANESTHESIA Hx Anesthesia: No Hx Anesthesia Reactions: No Meds Allergies/Adverse Reactions: Allergies Allergy/AdvReac Type Severity Reaction Status Date / Time No Known Allergies Allergy Verified 01/08/18 20:25 - Medications Medications: Current Medications Famotidine (Pepcid) 20 mg IVP DAILY [facility] Last Admin: 01/09/18 12:08 Dose: 20 mg Ibuprofen (Motrin Tab) 600 mg PO Q6 PRN PRN Reason: Pain, moderate (4-7) Insulin Human Regular (Humulin R Med) 0 units SC ACHS [facility] PRN Reason: Protocol Last Admin: 01/09/18 12:07 Dose: 8 units Lactulose (Enulose) 20 gm PO BID [facility] Last Admin: 01/09/18 12:07 Dose: 20 gm Spironolactone (Aldactone) 100 mg PO DAILY [facility] Last Admin: 01/09/18 10:30 Dose: 100 mg Physical Exam - Constitutional Appears: No Acute Distress Additional comments: Jaundiced - Head Exam Head Exam: ATRAUMATIC, NORMAL INSPECTION, NORMOCEPHALIC - Eye Exam Eye Exam: EOMI, Normal appearance, PERRL Pupil Exam: NORMAL ACCOMODATION, PERRL - ENT Exam ENT Exam: Mucous Membranes Moist, Normal Exam - Respiratory Exam Respiratory Exam: Clear to Auscultation Bilateral, NORMAL BREATHING PATTERN - Cardiovascular Exam Cardiovascular Exam: REGULAR RHYTHM - GI/Abdominal Exam GI & Abdominal Exam: Distended, Normal Bowel Sounds, Soft - Extremities Exam Extremities exam: Positive for: pedal edema - Neurological Exam Neurological exam: Alert, CN II-XII Intact, Oriented x3, Reflexes Normal - Psychiatric Exam Psychiatric exam: Normal Affect, Normal Mood Results - Vital Signs Recent Vital Signs: Last Vital Signs Temp 98.1 F 01/09/18 11:01 Pulse 75 01/09/18 12:00 Resp 16 01/09/18 12:00 BP 124/72 01/09/18 12:00 Pulse Ox 98 01/09/18 12:00 - Labs Result Diagrams: 01/09/18 05:35 01/09/18 05:35 Labs: Laboratory Results - last 24 hr 01/09/18 01/09/18 01/09/18 02:05 02:05 02:05 WBC RBC Hgb Hct MCV MCH MCHC RDW Plt Count MPV Gran % Lymph % (Auto) [place] % (Auto) Eos % (Auto) Baso % (Auto) Gran # Lymph # (Auto) [place] # (Auto) Eos # (Auto) Baso # (Auto) Sodium Potassium Chloride Carbon Dioxide Anion Gap BUN Creatinine Est GFR ( Amer) Est GFR (Non-Af Amer) POC Glucose (mg/dL) Random Glucose Calcium Total Bilirubin AST ALT Alkaline Phosphatase Ammonia 23 Total Protein Albumin Globulin Albumin/Globulin Ratio Urine Color Yellow Urine Appearance Clear Urine pH 6.0 Ur Specific [place] 1.010 Urine Protein Negative Urine Glucose (UA) >=1000 Urine Ketones Trace H Urine Blood Trace-intact H Urine Nitrate Negative Urine Bilirubin Negative Urine Urobilinogen 0.2 Ur Leukocyte Esterase Negative Urine RBC 0 - 2 Urine WBC 0 - 2 Ur Epithelial Cells 0 - 2 Blood Type O POSITIVE Blood Type Confirm Antibody Screen Negative BBK History Checked No verified bt 01/09/18 01/09/18 01/09/18 05:35 05:35 05:35 WBC 2.1 L* RBC 4.58 Hgb 13.7 L Hct 40.9 L MCV 89.3 MCH 29.9 MCHC 33.5 RDW 17.1 H Plt Count 28 L* MPV 9.4 Gran % 56.7 Lymph % (Auto) 23.3 [place] % (Auto) 17.1 H Eos % (Auto) 2.4 Baso % (Auto) 0.5 Gran # 1.19 L Lymph # (Auto) 0.5 L [place] # (Auto) 0.4 Eos # (Auto) 0.1 Baso # (Auto) 0.01 Sodium 137 Potassium 3.7 Chloride 103 Carbon Dioxide 27 Anion Gap 11 BUN 7 Creatinine 0.5 L Est GFR ( Amer) > 60 Est GFR (Non-Af Amer) > 60 POC Glucose (mg/dL) Random Glucose 370 H* Calcium 8.6 Total Bilirubin 3.4 H AST 37 ALT 36 Alkaline Phosphatase 138 H Ammonia Total Protein 6.0 Albumin 2.5 L Globulin 3.5 Albumin/Globulin Ratio 0.7 L Urine Color Urine Appearance Urine pH Ur Specific [place] Urine Protein Urine Glucose (UA) Urine Ketones Urine Blood Urine Nitrate Urine Bilirubin Urine Urobilinogen Ur Leukocyte Esterase Urine RBC Urine WBC Ur Epithelial Cells Blood Type Blood Type Confirm O POSITIVE Antibody Screen BBK History Checked 01/09/18 01/09/18 01/09/18 07:45 09:26 11:28 WBC RBC Hgb Hct MCV MCH MCHC RDW Plt Count MPV Gran % Lymph % (Auto) [place] % (Auto) Eos % (Auto) Baso % (Auto) Gran # Lymph # (Auto) [place] # (Auto) Eos # (Auto) Baso # (Auto) Sodium Potassium Chloride Carbon Dioxide Anion Gap BUN Creatinine Est GFR ( Amer) Est GFR (Non-Af Amer) POC Glucose (mg/dL) 409 H* 325 H 370 H Random Glucose Calcium Total Bilirubin AST ALT Alkaline Phosphatase Ammonia Total Protein Albumin Globulin Albumin/Globulin Ratio Urine Color Urine Appearance Urine pH Ur Specific [place] Urine Protein Urine Glucose (UA) Urine Ketones Urine Blood Urine Nitrate Urine Bilirubin Urine Urobilinogen Ur Leukocyte Esterase Urine RBC Urine WBC Ur Epithelial Cells Blood Type Blood Type Confirm Antibody Screen BBK History Checked Assessment & Plan - Assessment and Plan (Free Text) Assessment: 62 M with a PMHx of known and untreated Hep C, end stage liver cirrhosis, chronic pancreatitis, hepatic encephalopathy and IDDM presented to [facility] ED with complaints of lower abdominal pain x1 month secondary to ascites due to end stage liver cirrhosis. MELD 16 - 6% 3 month mortality. Hx of Hep C will need outpt fu. Pancytopenic - known end stage liver cirrhosis, 2 u plt ordered considering paracentesis CT Abdomen and Pelvis demonstrated: Extensive ascites and anasarca. End-stage cirrhosis, splenomegaly and portal hypertension. Large amount of fluid in the scrotum and inguinal canals bilaterally. Chronic pancreatitis and dilated pancreatic duct, unchanged. Continue lasix, aldactone, lactulose. IR consulted for Paracentesis and supplement albumin based on fluid removed. IDDM, hyperglycemic, insulin administered continue to monitor, NPO ADAT monitor I&Os Scrotal US pending Pt was last seen at [facility] 07/2017, pt was recommended an EGD/ Colonoscopy fu outpt at that time. <Josue Stein V - Last Filed: 01/09/18 23:17> Meds - Medications Medications: Current Medications Famotidine (Pepcid) 20 mg IVP DAILY [facility] Last Admin: 01/09/18 12:08 Dose: 20 mg Ibuprofen (Motrin Tab) 600 mg PO Q6 PRN PRN Reason: Pain, moderate (4-7) Insulin Human Lispro (Humalog Low) 0 units SC [facility] PRN Reason: Protocol Last Admin: 01/09/18 22:04 Dose: Not Given Insulin Human Regular (Humulin R Med) 0 units SC [facility] PRN Reason: Protocol Last Admin: 01/09/18 22:05 Dose: Not Given Lactulose (Enulose) 20 gm PO BID [facility] Last Admin: 03/01/18 18:11 Dose: 20 gm Spironolactone (Aldactone) 100 mg PO DAILY [facility] Last Admin: 01/09/18 10:30 Dose: 100 mg Results - Vital Signs Recent Vital Signs: Last Vital Signs Temp 98.1 F 01/09/18 15:26 Pulse 75 01/09/18 15:26 Resp 16 01/09/18 15:26 BP 124/72 01/09/18 15:26 Pulse Ox 98 01/09/18 12:00 - Labs Result Diagrams: 01/09/18 05:35 01/09/18 05:35 Labs: Laboratory Results - last 24 hr 01/09/18 01/09/18 01/09/18 02:05 02:05 02:05 WBC RBC Hgb Hct MCV MCH MCHC RDW Plt Count MPV Gran % Lymph % (Auto) [place] % (Auto) Eos % (Auto) Baso % (Auto) Gran # Lymph # (Auto) [place] # (Auto) Eos # (Auto) Baso # (Auto) Sodium Potassium Chloride Carbon Dioxide Anion Gap BUN Creatinine Est GFR ( Amer) Est GFR (Non-Af Amer) POC Glucose (mg/dL) Random Glucose Hemoglobin A1c Calcium Total Bilirubin AST ALT Alkaline Phosphatase Ammonia 23 Total Protein Albumin Globulin Albumin/Globulin Ratio Urine Color Yellow Urine Appearance Clear Urine pH 6.0 Ur Specific [place] 1.010 Urine Protein Negative Urine Glucose (UA) >=1000 Urine Ketones Trace H Urine Blood Trace-intact H Urine Nitrate Negative Urine Bilirubin Negative Urine Urobilinogen 0.2 Ur Leukocyte Esterase Negative Urine RBC 0 - 2 Urine WBC 0 - 2 Ur Epithelial Cells 0 - 2 Blood Type O POSITIVE Blood Type Confirm Antibody Screen Negative BBK History Checked No verified bt 01/09/18 01/09/18 01/09/18 05:35 05:35 05:35 WBC 2.1 L* RBC 4.58 Hgb 13.7 L Hct 40.9 L MCV 89.3 MCH 29.9 MCHC 33.5 RDW 17.1 H Plt Count 28 L* MPV 9.4 Gran % 56.7 Lymph % (Auto) 23.3 [place] % (Auto) 17.1 H Eos % (Auto) 2.4 Baso % (Auto) 0.5 Gran # 1.19 L Lymph # (Auto) 0.5 L [place] # (Auto) 0.4 Eos # (Auto) 0.1 Baso # (Auto) 0.01 Sodium 137 Potassium 3.7 Chloride 103 Carbon Dioxide 27 Anion Gap 11 BUN 7 Creatinine 0.5 L Est GFR ( Amer) > 60 Est GFR (Non-Af Amer) > 60 POC Glucose (mg/dL) Random Glucose 370 H* Hemoglobin A1c 11.6 H Calcium 8.6 Total Bilirubin 3.4 H AST 37 ALT 36 Alkaline Phosphatase 138 H Ammonia Total Protein 6.0 Albumin 2.5 L Globulin 3.5 Albumin/Globulin Ratio 0.7 L Urine Color Urine Appearance Urine pH Ur Specific [place] Urine Protein Urine Glucose (UA) Urine Ketones Urine Blood Urine Nitrate Urine Bilirubin Urine Urobilinogen Ur Leukocyte Esterase Urine RBC Urine WBC Ur Epithelial Cells Blood Type Blood Type Confirm Antibody Screen BBK History Checked 01/09/18 01/09/18 01/09/18 05:35 07:45 09:26 WBC RBC Hgb Hct MCV MCH MCHC RDW Plt Count MPV Gran % Lymph % (Auto) [place] % (Auto) Eos % (Auto) Baso % (Auto) Gran # Lymph # (Auto) [place] # (Auto) Eos # (Auto) Baso # (Auto) Sodium Potassium Chloride Carbon Dioxide Anion Gap BUN Creatinine Est GFR ( Amer) Est GFR (Non-Af Amer) POC Glucose (mg/dL) 409 H* 325 H Random Glucose Hemoglobin A1c Calcium Total Bilirubin AST ALT Alkaline Phosphatase Ammonia Total Protein Albumin Globulin Albumin/Globulin Ratio Urine Color Urine Appearance Urine pH Ur Specific [place] Urine Protein Urine Glucose (UA) Urine Ketones Urine Blood Urine Nitrate Urine Bilirubin Urine Urobilinogen Ur Leukocyte Esterase Urine RBC Urine WBC Ur Epithelial Cells Blood Type Blood Type Confirm O POSITIVE Antibody Screen BBK History Checked 01/09/18 01/09/18 01/09/18 11:28 16:19 21:58 WBC RBC Hgb Hct MCV MCH MCHC RDW Plt Count MPV Gran % Lymph % (Auto) [place] % (Auto) Eos % (Auto) Baso % (Auto) Gran # Lymph # (Auto) [place] # (Auto) Eos # (Auto) Baso # (Auto) Sodium Potassium Chloride Carbon Dioxide Anion Gap BUN Creatinine Est GFR ( Amer) Est GFR (Non-Af Amer) POC Glucose (mg/dL) 370 H 263 H 273 H Random Glucose Hemoglobin A1c Calcium Total Bilirubin AST ALT Alkaline Phosphatase Ammonia Total Protein Albumin Globulin Albumin/Globulin Ratio Urine Color Urine Appearance Urine pH Ur Specific [place] Urine Protein Urine Glucose (UA) Urine Ketones Urine Blood Urine Nitrate Urine Bilirubin Urine Urobilinogen Ur Leukocyte Esterase Urine RBC Urine WBC Ur Epithelial Cells Blood Type Blood Type Confirm Antibody Screen BBK History Checked Attending/Attestation - Attestation I have personally seen and examined this patient.: Yes I have fully participated in the care of the patient.: Yes I have reviewed all pertinent clinical information: Yes Notes (Text): This is an addendum to GI consult report dictated by the Hand Flesher.The patient was seen and examined earlier. Medical records, lab studies, imagings were reviewed. Last 24 hours events reviewed. Agreed with the above treatment plan as outlined in Hand Flesher 's notes the with the addition of the following 01/09/18 23:16
--- NOTE | 2018-01-09 14:29 | US ---
HISTORY: scrotal swelling TECHNIQUE: Realtime sonography through the scrotum with color and doppler flow. COMPARISON: None Available. FINDINGS: RIGHT TESTICLE: Measures 3.7 x 2.0 x 2.0 cm. Normal echotexture and flow. RIGHT EPIDIDYMIS: Epididymal head measures 1.3 x 0.9 x 0.5 cm. Grossly unremarkable appearance with normal flow. LEFT TESTICLE: Measures 3.6 x 2.1 x 2.1 cm. Normal echotexture and flow. LEFT EPIDIDYMIS: Epididymal head measures 1.2 x 1.3 x 0.9 cm. Grossly unremarkable appearance with normal flow. HYDROCELE: There is a small right hydrocele. VARICOCELE: None. OTHER FINDINGS: There is diffuse edema in the scrotal wall. IMPRESSION: No evidence of testicular mass or torsion. Diffuse scrotal wall edema.
--- NOTE | 2018-01-09 19:15 | US ---
HISTORY: Leg pain and swelling. Evaluate for DVT PHYSICIAN(S): Harman Newell MD. TECHNIQUE: Duplex sonography and color-flow Doppler with graded compression were used to evaluate the deep venous systems of both lower extremities. The exam is limited by edema. FINDINGS: The visualized deep venous systems of both lower extremities are sonographically normal and compressible. Normal wave forms and augmentation are seen. There is no sonographic evidence for deep venous thrombosis in the visualized segments of both lower extremities. IMPRESSION: No sonographic evidence for deep venous thrombosis in the visualized segments of both lower extremities.
[2018-01-09] MEDS ORDERED: Insulin Lispro 1 UNITS/0.01 ML SC SCH (22:00)
[2018-01-09] MEDS: Insulin Lispro (humaLOG) LOW Coverage SC SCH (22:04)
[2018-01-10 07:04] LABS: BASO # 0.02 K/mm3 (0.0-2.0); BASO % 0.9 % (0.0-3.0); EOS # 0.1 (0.0-0.7); EOS % 2.3 % (1.5-5.0); GRAN # 1.04 (1.4-6.5); GRAN % 48.9 % (50.0-68.0); HEMOGLOBIN 13.4 g/dL (14.0-18.0); LYMPH # 0.6 (1.2-3.4); LYMPH % 26.3 % (22.0-35.0); MEAN CORPUSCULAR HEMOGLOBIN 31.1 pg (25.0-35.0); MEAN CORPUSCULAR HGB CONC 34.5 g/dl (31.0-37.0); MEAN PLATELET VOLUME 10.1 fl (7.0-11.0); MONO # 0.5 (0.1-0.6); MONO % 21.6 % (1.0-6.0); RBC 4.31 10^6/uL (3.5-6.1); RED CELL DISTRIBUTION WIDTH 17.3 % (11.5-14.5)
[2018-01-10 07:08] LABS: WHITE BLOOD COUNT 2.1 10^3/ul (4.5-11.0)
[2018-01-10 07:09] LABS: PLATELET COUNT 46 10^3/uL (120.0-450.0)
[2018-01-10 07:16] LABS: BLOOD UREA NITROGEN 8 mg/dL (7-21); GFR AFRICAN-AMERICAN > 60; GFR NON-AFRICAN AMERICAN > 60
[2018-01-10 07:17] LABS: ALB/GLOB RATIO 0.6 (1.1-1.8); ALBUMIN 2.2 g/dL (3.0-4.8); ALT/SGPT 40 U/L (7-56); AST/SGOT 47 U/L (17-59); CALCIUM 8.2 mg/dL (8.4-10.5)
[2018-01-10 07:24] LABS: INR 1.64 (0.93-1.08); PARTIAL THROMBOPLASTIN TIME 34.7 Seconds (25.1-36.5)
[2018-01-10] MEDS: Insulin Lispro (humaLOG) LOW Coverage SC SCH ×4 (07:54→21:34)
[2018-01-10] MEDS: Insulin Reg-MEDIUM-Coverage SC SCH ×4 (07:56→21:36)
[2018-01-10 09:00] LABS: LYMPHOCYTE 32 % (22.0-35.0); NEUTROPHIL 55 % (50.0-70.0)
[2018-01-10 09:01] LABS: ANISOCYTOSIS 1+; EOSINOPHIL 1 % (0.0-3.0); MONOCYTE 12 % (1.0-6.0); PLATELET ESTIMATE LOW (NORMAL)
[2018-01-10] MEDS: Insulin Detemir 100 units/ml Vial (Levemir) SC SCH ×2 (11:16→17:24)
--- NOTE | 2018-01-10 13:00 | CP.PCM.PN ---
<Negar Johnson - Last Filed: 01/10/18 13:12> Subjective - Date & Time of Evaluation Date of Evaluation: 01/10/18 Time of Evaluation: 12:59 - Subjective Subjective: Progress note for Dr. Beltran Patient seen and examined at bedside. Patient states he has some abdominal pain and wants to have his ascites taken care of by lasix. Patient denies fever, chills, nausea, vomiting, diarrhea, constipation. Per nursing staff, patient is scheduled for paracentesis today. Will follow Objective - Vital Signs/Intake and Output Vital Signs (last 24 hours): Temp Pulse Resp BP Pulse Ox 97.5 F L 81 20 130/77 94 L 01/10/18 07:42 01/10/18 07:42 01/10/18 07:42 01/10/18 11:16 01/10/18 07:42 Intake and Output: 01/10/18 01/10/18 06:59 18:59 Intake Total 240 Balance 240 - Medications Medications: Current Medications Famotidine (Pepcid) 20 mg IVP DAILY [facility] Last Admin: 01/10/18 09:01 Dose: 20 mg Ibuprofen (Motrin Tab) 600 mg PO Q6 PRN PRN Reason: Pain, moderate (4-7) Insulin Detemir (Levemir) 10 unit SC BID [facility] Last Admin: 01/10/18 11:16 Dose: 10 unit Insulin Human Lispro (Humalog Low) 0 units SC [facility] PRN Reason: Protocol Last Admin: 01/10/18 11:18 Dose: 4 units Insulin Human Regular (Humulin R Med) 0 units SC [facility] PRN Reason: Protocol Last Admin: 01/10/18 11:17 Dose: 7 units Lactulose (Enulose) 20 gm PO BID [facility] Last Admin: 01/10/18 09:01 Dose: 20 gm Spironolactone (Aldactone) 100 mg PO DAILY [facility] Last Admin: 01/10/18 09:01 Dose: 100 mg - Labs Labs: 01/10/18 06:30 01/10/18 06:30 PT 19.0 SECONDS (9.4-12.5) H 01/10/18 06:30 INR 1.64 (0.93-1.08) H 01/10/18 06:30 APTT 34.7 Seconds (25.1-36.5) 01/10/18 06:30 - Constitutional Appears: Non-toxic, No Acute Distress - Head Exam Head Exam: ATRAUMATIC, NORMAL INSPECTION, NORMOCEPHALIC - Eye Exam Eye Exam: EOMI, Normal appearance - ENT Exam ENT Exam: Mucous Membranes Moist, Normal Exam - Respiratory Exam Respiratory Exam: Clear to Ausculation Bilateral, NORMAL BREATHING PATTERN - Cardiovascular Exam Cardiovascular Exam: REGULAR RHYTHM, +S1, +S2 - GI/Abdominal Exam GI & Abdominal Exam: Distended, Tenderness (left and right lower quadrant pain to deep palpation) Additional comments: no rebound tenderness, rigidity - Extremities Exam Extremities Exam: Full ROM. absent: Pedal Edema - Back Exam Back Exam: Full ROM, NORMAL INSPECTION - Neurological Exam Neurological Exam: Alert, Awake, CN II-XII Intact, Oriented x3 - Psychiatric Exam Psychiatric exam: Normal Affect, Normal Mood - Skin Skin Exam: Dry, Intact, Normal Color, Warm Assessment and Plan - Assessment and Plan (Free Text) Assessment: 62 year old male with PMH Hepatitis C, cirrhosis, bilateral inguinal hernias, DM , presents for abdominal pain, scrotal/leg swelling, found to have extensive ascites/anasarca on imaging: Abdominal pain/scrotal and leg swellin/2 ascites 2/2 cirrhosis - Pt has hx of Hep C - CT Abdomen and Pelvis shows: Extensive ascites and anasarca. End-stage cirrhosis, splenomegaly and portal hypertension. Large amount of fluid in the scrotum and inguinal canals bilaterally. Chronic pancreatitis and dilated pancreatic duct, unchanged. - MELD 16 - 6% 3 month mortality - Ammonia level. Pt currently AAOx4. - Given Lasix 20 mg IV x1. - cont with home Aldactone 100mg PO, lactulose bid - NPO - I&Os - Scrotal US negative for torsion, per Dr. Oliverio Puga Urology Consult: patient is to have scrotal elevation - GI consult: Dr. Stein. f/u recommendations - IR consult: Patient to have paracentesis today 01/10/18 - Urology c/s. - Echocardiogram - Cont to monitor - Motrin prn Leukopenia: - ANC 1550 - Afebrile - daily cbc - consider neutropenic precautions if ANC<1000. 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 F/u UA. - Given 8 units regular insulin in ED - Started on ISS - moderate - Cont to monitor - NPO PPX: SCDs, Pepcid Isolation room: found to have bedbugs - pt washed in ED, to have check of isolation status at 14:[address] Ruby Johnson, DO PGY1 <Xenia Beltran - Last Filed: 01/11/18 07:19> Objective - Vital Signs/Intake and Output Vital Signs (last 24 hours): Temp Pulse Resp BP Pulse Ox 97.8 F 80 20 119/77 96 01/11/18 00:00 01/11/18 00:00 01/11/18 00:00 01/11/18 00:00 01/11/18 00:00 Intake and Output: 01/11/18 01/11/18 06:59 18:59 Intake Total 660 Balance 660 - Medications Medications: Current Medications Famotidine (Pepcid) 20 mg IVP DAILY [facility] Last Admin: 01/10/18 09:01 Dose: 20 mg Furosemide (Lasix) 20 mg IVP DAILY [facility] Insulin Detemir (Levemir) 10 unit SC BID [facility] Last Admin: 01/10/18 17:24 Dose: 10 unit Insulin Human Lispro (Humalog Low) 0 units SC [facility] PRN Reason: Protocol Last Admin: 01/10/18 21:34 Dose: Not Given Insulin Human Regular (Humulin R Med) 0 units SC [facility] PRN Reason: Protocol Last Admin: 01/10/18 21:36 Dose: Not Given Lactulose (Enulose) 20 gm PO BID [facility] Last Admin: 01/10/18 17:30 Dose: 20 gm Spironolactone (Aldactone) 100 mg PO DAILY [facility] Last Admin: 01/10/18 09:01 Dose: 100 mg - Labs Labs: 01/10/18 06:30 01/10/18 06:30 PT 19.0 SECONDS (9.4-12.5) H 01/10/18 06:30 INR 1.64 (0.93-1.08) H 01/10/18 06:30 APTT 34.7 Seconds (25.1-36.5) 01/10/18 06:30 Attending/Attestation - Attestation I have personally seen and examined this patient.: Yes I have fully participated in the care of the patient.: Yes I have reviewed all pertinent clinical information, including history, physical exam and plan: Yes Notes (Text): 01/10/18 62 year old male with past medical history of hepatitis C, cirrhosis and diabetes who presented with anasarca with ascites, scrotal swelling and LE swelling. Extensive anasarca and scrotal swelling seen on imaging. LE dopplers negative for DVT. He admits to noncompliance with his home diuretics. Continue with iv lasix and spironalactone. Plan for possible paracentesis, if patient is agreeable. Case was discussed with GI today. Continue with scrotal elevation per urology. Continue with liquid diet for now and advance as tolerated. Continue to monitor platelet closely for thrombocytopenia. Continue with insulin ss and levemir for diabetes. Xenia Beltran MD Hospitalist.
[2018-01-11] MEDS: Insulin Lispro (humaLOG) LOW Coverage SC SCH ×4 (08:10→22:02)
[2018-01-11] MEDS: Insulin Reg-MEDIUM-Coverage SC SCH ×4 (08:10→22:45)
[2018-01-11 08:34] LABS: BASO # 0.02 K/mm3 (0.0-2.0); BASO % 0.9 % (0.0-3.0); EOS # 0.1 (0.0-0.7); GRAN # 1.14 (1.4-6.5); GRAN % 50.9 % (50.0-68.0); HEMOGLOBIN 13.8 g/dL (14.0-18.0); LYMPH # 0.6 (1.2-3.4); LYMPH % 27.2 % (22.0-35.0); MEAN CELL VOLUME 89.9 fl (80.0-105.0); MEAN CORPUSCULAR HEMOGLOBIN 29.7 pg (25.0-35.0); MEAN CORPUSCULAR HGB CONC 33.1 g/dl (31.0-37.0); MEAN PLATELET VOLUME 9.8 fl (7.0-11.0); MONO # 0.4 (0.1-0.6); RBC 4.64 10^6/uL (3.5-6.1); RED CELL DISTRIBUTION WIDTH 17.2 % (11.5-14.5)
[2018-01-11 08:38] LABS: WHITE BLOOD COUNT 2.2 10^3/ul (4.5-11.0)
[2018-01-11 08:50] LABS: INR 1.64 (0.93-1.08); PARTIAL THROMBOPLASTIN TIME 34.9 Seconds (25.1-36.5); PROTHROMBIN TIME 19.1 SECONDS (9.4-12.5)
[2018-01-11 08:53] LABS: ALB/GLOB RATIO 0.6 (1.1-1.8); ALBUMIN 2.2 g/dL (3.0-4.8); ALT/SGPT 42 U/L (7-56); AST/SGOT 52 U/L (17-59); BLOOD UREA NITROGEN 8 mg/dL (7-21); CALCIUM 8.3 mg/dL (8.4-10.5); GFR AFRICAN-AMERICAN > 60; GFR NON-AFRICAN AMERICAN > 60
--- NOTE | 2018-01-11 10:03 | CP.PCM.PN ---
<Negar Johnson - Last Filed: 01/11/18 10:00> Subjective - Date & Time of Evaluation Date of Evaluation: 01/11/18 Time of Evaluation: 10:00 - Subjective Subjective: Progress note for Dr. Beltran Patient seen and examined at bedside. No acute events overnight. Patient refused paracentesis yesterday. Patient states he only needs lasix. Patient admits to abdominal pain. Patient denies fever, chills, nausea, vomiting, diarrhea. Objective - Vital Signs/Intake and Output Vital Signs (last 24 hours): Temp Pulse Resp BP Pulse Ox 97.7 F 78 20 106/97 H 99 01/11/18 07:30 01/11/18 07:30 01/11/18 07:30 01/11/18 07:30 01/11/18 07:30 Intake and Output: 01/11/18 01/11/18 06:59 18:59 Intake Total 660 Balance 660 - Medications Medications: Current Medications Famotidine (Pepcid) 20 mg IVP DAILY [facility] Last Admin: 01/10/18 09:01 Dose: 20 mg Furosemide (Lasix) 20 mg IVP DAILY [facility] Insulin Detemir (Levemir) 20 unit SC BID [facility] Insulin Human Lispro (Humalog Low) 0 units SC [facility] PRN Reason: Protocol Last Admin: 01/11/18 08:10 Dose: Not Given Insulin Human Regular (Humulin R Med) 0 units SC [facility] PRN Reason: Protocol Last Admin: 01/11/18 08:10 Dose: Not Given Lactulose (Enulose) 20 gm PO BID [facility] Last Admin: 01/10/18 17:30 Dose: 20 gm Spironolactone (Aldactone) 100 mg PO DAILY [facility] Last Admin: 01/10/18 09:01 Dose: 100 mg - Labs Labs: 01/11/18 08:26 01/11/18 08:26 PT 19.1 SECONDS (9.4-12.5) H 01/11/18 08:26 INR 1.64 (0.93-1.08) H 01/11/18 08:26 APTT 34.9 Seconds (25.1-36.5) 01/11/18 08:26 - Constitutional Appears: Non-toxic, No Acute Distress - Head Exam Head Exam: ATRAUMATIC, NORMAL INSPECTION, NORMOCEPHALIC - Eye Exam Eye Exam: EOMI, Normal appearance Pupil Exam: NORMAL ACCOMODATION - ENT Exam ENT Exam: Mucous Membranes Moist - Neck Exam Neck Exam: Full ROM, Normal Inspection. absent: Tenderness, Thyromegaly - Respiratory Exam Respiratory Exam: Clear to Ausculation Bilateral, NORMAL BREATHING PATTERN. absent: Accessory Muscle Use - Cardiovascular Exam Cardiovascular Exam: REGULAR RHYTHM, +S1, +S2. absent: Bradycardia, Tachycardia - GI/Abdominal Exam GI & Abdominal Exam: Soft, Normal Bowel Sounds. absent: Tenderness - Extremities Exam Extremities Exam: Full ROM, Normal Inspection. absent: Pedal Edema - Back Exam Back Exam: Full ROM, NORMAL INSPECTION - Neurological Exam Neurological Exam: Alert, Awake, CN II-XII Intact, Normal Gait, Oriented x3 - Psychiatric Exam Psychiatric exam: Normal Affect, Normal Mood - Skin Skin Exam: Dry, Intact, Normal Color, Warm Assessment and Plan - Assessment and Plan (Free Text) Assessment: 62 year old male with PMH Hepatitis C, cirrhosis, bilateral inguinal hernias, DM , presents for abdominal pain, scrotal/leg swelling, found to have extensive ascites/anasarca on imaging: Abdominal pain/scrotal and leg swellin/2 ascites 2/2 cirrhosis - Pt has hx of Hep C - CT Abdomen and Pelvis shows: Extensive ascites and anasarca. End-stage cirrhosis, splenomegaly and portal hypertension. Large amount of fluid in the scrotum and inguinal canals bilaterally. Chronic pancreatitis and dilated pancreatic duct, unchanged. - MELD 16 - 6% 3 month mortality - Ammonia level. Pt currently AAOx4. - Given Lasix 20 mg IV x1. - cont with home Aldactone 100mg PO, lactulose bid - NPO - I&Os - Scrotal US negative for torsion, per Dr. Oliverio Puga Urology Consult: patient is to have scrotal elevation - GI consult: Dr. Stein. f/u recommendations - IR consult: Patient to have paracentesis today 01/10/18, patient refused paracentesis multiple times - Urology c/s. - Echocardiogram - Cont to monitor - Motrin prn Patient has lasix 20mg IVP BID Leukopenia: - ANC 1140 - Afebrile - daily cbc - consider neutropenic precautions if ANC<1000. 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 F/u UA. - Given 8 units regular insulin in ED - Started on ISS - moderate - Cont to monitor Diet: Heart Healthy, low carb consistent, low 2gm Na diet PPX: SCDs, Pepcid Isolation room: found to have bedbugs - pt washed in ED, patient is currently off of isolation. discussed with Dr. Ruby Johnson, DO PGY1 <Xenia Beltran - Last Filed: 01/11/18 10:52> Objective - Vital Signs/Intake and Output Vital Signs (last 24 hours): Temp Pulse Resp BP Pulse Ox 97.7 F 78 20 106/97 H 99 01/11/18 07:30 01/11/18 07:30 01/11/18 07:30 01/11/18 07:30 01/11/18 07:30 Intake and Output: 01/11/18 01/11/18 06:59 18:59 Intake Total 660 Balance 660 - Medications Medications: Current Medications Famotidine (Pepcid) 20 mg IVP DAILY [facility] Last Admin: 01/10/18 09:01 Dose: 20 mg Furosemide (Lasix) 20 mg IVP BID [facility] Insulin Detemir (Levemir) 20 unit SC BID [facility] Insulin Human Lispro (Humalog Low) 0 units SC [facility] PRN Reason: Protocol Last Admin: 01/11/18 08:10 Dose: Not Given Insulin Human Regular (Humulin R Med) 0 units SC [facility] PRN Reason: Protocol Last Admin: 01/11/18 08:10 Dose: Not Given Lactulose (Enulose) 20 gm PO BID [facility] Last Admin: 01/10/18 17:30 Dose: 20 gm Potassium Chloride (Potassium Chloride Oral Soln) 40 meq PO ONCE ONE Stop: 01/11/18 10:49 Spironolactone (Aldactone) 100 mg PO DAILY [facility] Last Admin: 01/10/18 09:01 Dose: 100 mg - Labs Labs: 01/11/18 08:26 01/11/18 08:26 PT 19.1 SECONDS (9.4-12.5) H 01/11/18 08:26 INR 1.64 (0.93-1.08) H 01/11/18 08:26 APTT 34.9 Seconds (25.1-36.5) 01/11/18 08:26 Attending/Attestation - Attestation I have personally seen and examined this patient.: Yes I have fully participated in the care of the patient.: Yes I have reviewed all pertinent clinical information, including history, physical exam and plan: Yes Notes (Text): 01/11/18 10:50 62 year old male with past medical history of hepatitis C, cirrhosis and diabetes who presented with anasarca with ascites, scrotal swelling and LE swelling. Extensive anasarca and scrotal swelling seen on imaging. LE dopplers negative for DVT. He admitted to noncompliance with his home diuretics. He was counselled on medication compliance. He is currently refusing paracentesis. Continue with spironalactone. Lasix increased to 20 mg iv bid. GI is following patient as well. Continue with diet as tolerated. Continue with scrotal elevation per urology. Continue to monitor pancytopenia. Continue with insulin ss and levemir for diabetes. Will replete and repeat potassium. Xenia Beltran MD Hospitalist.
[2018-01-11] MEDS ORDERED: Potassium Chloride 40 mEq/30 ml LIQ UD PO ONE (10:48)
[2018-01-11] MEDS: Insulin Detemir 100 units/ml Vial (Levemir) SC SCH ×2 (10:52→17:26)
--- NOTE | 2018-01-12 00:13 | PN ---
DATE: 01/11/2018 SUBJECTIVE: This patient was seen and evaluated earlier today. The patient is comfortable. Tolerating the diet. PHYSICAL EXAMINATION: VITAL SIGNS: Temperature 97.6, blood pressure is 117/77, respiration is 18, O2 saturation is 97%. HEENT: Atraumatic, anicteric. NECK: Supple. HEART: S1 and S2 heard. LUNGS: Bilateral air entry present, slightly reduced in the base. ABDOMEN: Distended. A large amount of ascites present. EXTREMITIES: No cyanosis. No clubbing. No edema. LABORATORY DATA: WBC 2.2, hemoglobin 13.8, hematocrit 41.7, platelet 337. INR 1.64. Potassium 3.5, total bilirubin elevated to 3.5. IMPRESSION: This is a 62-year-old patient with decompensated cirrhosis secondary to hepatitis C, diabetes mellitus admitted. with Abdominal discomfort and alarge ascites. The patient was offered a large volume paracentesis on admission. The patient refused. The plan at that time was to give the platelet transfusion and paracentesis. The patient has declined. The patient also was found to be constipated. The patient is on lactulose. He is moving his bowels now, had twice bowel movements Abdominal distension has slightly improved. Diet has been now advanced. Patient haslarge ascites, decompensated cirrhosis. The patient had at home 100 mg of Aldactone and Lasix 20 mg. The patient was on ibuprofen. The patient also has scrotal swelling. Testicular ultrasound showed only edema of the scrotal wall. Recommendation: The plan is to consider paracentesis if the patient is agreeable and may need platelet transfusion before that and we will continue the diuretics. Presently, we will continue the Aldactone and Lasix. If ihe patient is discharged, he needs to be followed in the Gastroenterology clinic and we can titrate the dose of the Lasix. If the patient still has more abdominal discomfort and increased distention, need to consider paracentesis prior to dc. I did again discuss with the patient again , the patient is reluctant to have the procedure. Thank you very much for allowing us to participate in the care of the patient. Josue Stein MD [facility] # [id number] NATHAN
--- NOTE | 2018-01-12 07:42 | CP.PCM.PN ---
<AlexNegar - Last Filed: 01/12/18 09:14> Subjective - Date & Time of Evaluation Date of Evaluation: 01/12/18 Time of Evaluation: 07:40 - Subjective Subjective: Progress note Patient seen and examined at bedside. No acute events overnight. Patient states he does not want a paracentesis. Patient says he only wants lasix Patient denies fever, chills, nausea, vomiting, diarrhea. Objective - Vital Signs/Intake and Output Vital Signs (last 24 hours): Temp Pulse Resp BP Pulse Ox 97.7 F 83 18 115/63 99 01/12/18 00:00 01/12/18 00:00 01/12/18 00:00 01/12/18 00:00 01/12/18 00:00 Intake and Output: 01/12/18 01/12/18 06:59 18:59 Intake Total 1320 Balance 1320 - Medications Medications: Current Medications Famotidine (Pepcid) 20 mg IVP DAILY [facility] Last Admin: 01/11/18 10:54 Dose: 20 mg Furosemide (Lasix) 20 mg IVP BID [facility] Last Admin: 01/11/18 17:25 Dose: 20 mg Insulin Detemir (Levemir) 20 unit SC BID [facility] Last Admin: 01/11/18 17:26 Dose: 20 unit Insulin Human Lispro (Humalog Low) [address] [facility] PRN Reason: Protocol Last Admin: 01/11/18 22:02 Dose: Not Given Insulin Human Regular (Humulin R Med) [address] [facility] PRN Reason: Protocol Last Admin: 01/11/18 22:45 Dose: Not Given Lactulose (Enulose) 20 gm PO BID [facility] Last Admin: 01/11/18 17:25 Dose: 20 gm Spironolactone (Aldactone) 100 mg PO DAILY [facility] Last Admin: 01/11/18 10:53 Dose: 100 mg - Labs Labs: 01/11/18 08:26 01/11/18 08:26 PT 19.1 SECONDS (9.4-12.5) H 01/11/18 08:26 INR 1.64 (0.93-1.08) H 01/11/18 08:26 APTT 34.9 Seconds (25.1-36.5) 01/11/18 08:26 - Constitutional Appears: Non-toxic, No Acute Distress - Head Exam Head Exam: ATRAUMATIC, NORMAL INSPECTION, NORMOCEPHALIC - Eye Exam Eye Exam: EOMI, Normal appearance Pupil Exam: NORMAL ACCOMODATION - ENT Exam ENT Exam: Mucous Membranes Moist, Normal Exam - Neck Exam Neck Exam: Full ROM. absent: Tenderness, Thyromegaly - Respiratory Exam Respiratory Exam: Clear to Ausculation Bilateral, NORMAL BREATHING PATTERN - Cardiovascular Exam Cardiovascular Exam: REGULAR RHYTHM, +S1, +S2 - GI/Abdominal Exam GI & Abdominal Exam: Distended, Soft, Normal Bowel Sounds - Exam Exam: Scrotal Swelling (slightly decreased from admission). absent: Testicular Tenderness External exam: absent: Ecchymosis, Lesions - Extremities Exam Extremities Exam: Full ROM, Normal Capillary Refill, Normal Inspection. absent : Pedal Edema - Neurological Exam Neurological Exam: Awake, CN II-XII Intact, Oriented x3 - Psychiatric Exam Psychiatric exam: Normal Affect, Normal Mood - Skin Skin Exam: Dry, Intact, Normal Color, Warm Assessment and Plan - Assessment and Plan (Free Text) Assessment: 62 year old male with PMH Hepatitis C, cirrhosis, bilateral inguinal hernias, DM , presents for abdominal pain, scrotal/leg swelling, found to have extensive ascites/anasarca on imaging: Abdominal pain/scrotal and leg swellin/2 ascites 2/2 cirrhosis - Pt has hx of Hep C - CT Abdomen and Pelvis shows: Extensive ascites and anasarca. End-stage cirrhosis, splenomegaly and portal hypertension. Large amount of fluid in the scrotum and inguinal canals bilaterally. Chronic pancreatitis and dilated pancreatic duct, unchanged. - MELD 16 - 6% 3 month mortality - Ammonia level. Pt currently AAOx4. - Given Lasix 20 mg IV x1. - cont with home Aldactone 100mg PO, lactulose bid - NPO - I&Os - Scrotal US negative for torsion, per Dr. Oliverio Puga Urology Consult: patient is to have scrotal elevation - GI consult: Dr. Stein. f/u recommendations - IR consult: Patient to have paracentesis today 01/10/18, patient refused paracentesis multiple times - Urology c/s. - Echocardiogram - Cont to monitor - Motrin prn Patient has lasix 20mg IVP BID Leukopenia: - ANC 1140 - Afebrile - daily cbc - consider neutropenic precautions if ANC<1000. 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 F/u UA. - Given 8 units regular insulin in ED - Started on ISS - moderate - 3/3 started Levemir 20u BID - Cont to monitor Diet: Heart Healthy, low carb consistent, low 2gm Na diet PPX: SCDs, Pepcid Isolation room: found to have bedbugs - pt washed in ED, was off isolation and is now back on isolation discussed with Dr. Ruby Johnson DO PGY1 <Xenia Beltran - Last Filed: 01/12/18 12:55> Objective - Vital Signs/Intake and Output Vital Signs (last 24 hours): Temp Pulse Resp BP Pulse Ox 98.1 F 84 20 120/67 97 01/12/18 07:30 01/12/18 07:30 01/12/18 07:30 01/12/18 09:35 01/12/18 07:30 Intake and Output: 01/12/18 01/12/18 06:59 18:59 Intake Total 1320 Balance 1320 - Medications Medications: Current Medications Furosemide (Lasix) 20 mg IVP BID [facility] Last Admin: 01/12/18 09:35 Dose: 20 mg Insulin Detemir (Levemir) 20 unit SC BID [facility] Last Admin: 01/12/18 10:50 Dose: 20 unit Insulin Human Regular (Humulin R Med) [address] [facility] PRN Reason: Protocol Last Admin: 01/12/18 07:46 Dose: 3 units Lactulose (Enulose) 20 gm PO BID [facility] Last Admin: 01/12/18 09:37 Dose: 20 gm Spironolactone (Aldactone) 100 mg PO DAILY [facility] Last Admin: 01/12/18 09:37 Dose: 100 mg - Labs Labs: 01/12/18 08:24 01/12/18 08:24 PT 20.2 SECONDS (9.4-12.5) H 01/12/18 08:24 INR 1.74 (0.93-1.08) H 01/12/18 08:24 APTT 36.2 Seconds (25.1-36.5) 01/12/18 08:24 Attending/Attestation - Attestation I have personally seen and examined this patient.: Yes I have fully participated in the care of the patient.: Yes I have reviewed all pertinent clinical information, including history, physical exam and plan: Yes Notes (Text): 01/12/18 12:53 62 year old male with past medical history of hepatitis C, cirrhosis and diabetes who presented with anasarca with ascites, scrotal swelling and LE swelling. Extensive anasarca and scrotal swelling seen on imaging. LE dopplers were negative for DVT. He admitted to noncompliance with his home diuretics and was counselled on medication compliance. He is currently still refusing paracentesis. Continue with spironalactone and iv lasix bid. Monitor for response on diuretics. Continue with diet as tolerated. Will follow up with GI recommendations. Continue with scrotal elevation per urology. Continue to monitor pancytopenia. Continue with insulin ss and levemir for diabetes. Xenia Beltran MD Hospitalist.
[2018-01-12] MEDS: Insulin Reg-MEDIUM-Coverage SC SCH ×4 (07:46→21:58)
[2018-01-12] MEDS: Insulin Lispro (humaLOG) LOW Coverage SC SCH (07:46)
[2018-01-12 08:33] LABS: BASO # 0.01 K/mm3 (0.0-2.0); BASO % 0.4 % (0.0-3.0); EOS # 0.1 (0.0-0.7); EOS % 2.4 % (1.5-5.0); GRAN # 1.53 (1.4-6.5); HEMOGLOBIN 12.7 g/dL (14.0-18.0); LYMPH # 0.5 (1.2-3.4); LYMPH % 19.1 % (22.0-35.0); MEAN CELL VOLUME 90.7 fl (80.0-105.0); MEAN CORPUSCULAR HEMOGLOBIN 29.5 pg (25.0-35.0); MEAN CORPUSCULAR HGB CONC 32.6 g/dl (31.0-37.0); MEAN PLATELET VOLUME 9.5 fl (7.0-11.0); MONO # 0.4 (0.1-0.6); MONO % 17.1 % (1.0-6.0); RBC 4.3 10^6/uL (3.5-6.1); RED CELL DISTRIBUTION WIDTH 17.4 % (11.5-14.5)
[2018-01-12 08:40] LABS: INR 1.74 (0.93-1.08); PARTIAL THROMBOPLASTIN TIME 36.2 Seconds (25.1-36.5); PROTHROMBIN TIME 20.2 SECONDS (9.4-12.5)
[2018-01-12 08:44] LABS: WHITE BLOOD COUNT 2.5 10^3/ul (4.5-11.0)
[2018-01-12 09:24] LABS: ALB/GLOB RATIO 0.6 (1.1-1.8); ALT/SGPT 37 U/L (7-56); AST/SGOT 64 U/L (17-59); BLOOD UREA NITROGEN 8 mg/dL (7-21); CALCIUM 8.7 mg/dL (8.4-10.5); GFR AFRICAN-AMERICAN > 60; GFR NON-AFRICAN AMERICAN > 60
[2018-01-12] MEDS: Insulin Detemir 100 units/ml Vial (Levemir) SC SCH ×2 (10:50→18:14)
--- NOTE | 2018-01-12 12:11 | CARD ---
APPROVED REPORT EXAM: Two-dimensional and M-mode echocardiogram with Doppler and color Doppler. INDICATION Edema 2D DIMENSIONS Left Atrium (2D)4.0 (1.6-4.0cm)IVSd1.0 (0.7-1.1cm) Aortic Root (2D)3.1 (2.0-3.7cm)LVDd4.8 (3.9-5.9cm) PWd1.0 (0.7-1.1cm)LVDs3.2 (2.5-4.0cm) FS (%) 34.4 %LVEF (%)63.6 (>50%) M-Mode DIMENSIONS Aortic Cusp Exc.1.90 (1.5-2.0cm) Mitral Valve MV E Ljjezepe58.4cm/sMV A Tpmhfuta54.7cm/sE/A ratio1.3 TDI Lateral E' Peak V10.80cm/sMedial E' Peak V10.10cm/sE/Lateral E'7.8 E/Medial E'8.4 Pulmonary Valve PV Peak Mtabktlp70.0cm/sPV Peak Grad.3mmHg Tricuspid Valve TR Peak Eymlgjll179xt/sRAP [id number] Peak Gr.16mmHg [id number] LEFT VENTRICLE The left ventricle is normal size. There is normal left ventricular wall thickness. The left ventricular function is normal.EF-55% There is normal LV segmental wall motion. Transmitral Doppler flow pattern is Grade II-pseudonormal filling dynamics. No left ventricle thrombus noted on this study. There is no ventricular septal defect visualized. There is no left ventricular aneurysm. There is no mass noted in the left ventricle. RIGHT VENTRICLE The right ventricle is normal size. There is normal right ventricular wall thickness. The right ventricular systolic function is normal. ATRIA The left atrium is mildly dilated. The right atrium size is normal. The interatrial septum is intact with no evidence for an atrial septal defect. AORTIC VALVE The aortic valve is calcified but opens well. The aortic valve is moderately to severely sclerotic. No aortic regurgitation is present. There is no aortic valvular stenosis. There is no aortic valvular vegetation. MITRAL VALVE The mitral valve is thickened but opens well. Mitral annular calcification is mild to moderate. Mitral regurgitation is trace to mild. There is no mitral valve stenosis. There is no evidence of mitral valve prolapse. TRICUSPID VALVE The tricuspid valve leaflets are thickened , but open well. There is trace tricuspid regurgitation.RVSP-19 mmof Hg. There is no tricuspid valve stenosis. There is no tricuspid valve prolapse or vegetation. PULMONIC VALVE The pulmonary valve is normal in structure. There is no pulmonic valvular regurgitation. There is no pulmonic valvular stenosis. GREAT VESSELS The aortic root is normal in size. The ascending aorta is normal in size. The pulmonary artery is normal. The IVC is normal in size and collapses >50% with inspiration. PERICARDIAL EFFUSION There is no pleural effusion. There is no pericardial effusion. <Conclusion> The left ventricle is normal size. There is normal left ventricular wall thickness. The left ventricular function is normal.EF-55% Mitral regurgitation is trace to mild. There is trace tricuspid regurgitation.RVSP-19 mmof Hg. The IVC is normal in size and collapses >50% with inspiration. There is no pericardial effusion. No Vegetation or thrombus noted.
--- NOTE | 2018-01-12 13:18 | PCM.URO ---
Urology Progress Note - Objective Lab Studies: Reviewed (see previous dictated gu consult no gu change thanks) Lab Results Last 24 Hours: Laboratory Results - last 24 hr 01/11/18 01/11/18 01/12/18 16:15 21:51 07:21 WBC RBC Hgb Hct MCV MCH MCHC RDW Plt Count MPV Gran % Lymph % (Auto) Brooke % (Auto) Eos % (Auto) Baso % (Auto) Gran # Lymph # (Auto) Brooke # (Auto) Eos # (Auto) Baso # (Auto) PT INR APTT Sodium Potassium Chloride Carbon Dioxide Anion Gap BUN Creatinine Est GFR ( Amer) Est GFR (Non-Af Amer) POC Glucose (mg/dL) 280 H 224 H 217 H Random Glucose Calcium Total Bilirubin AST ALT Alkaline Phosphatase Total Protein Albumin Globulin Albumin/Globulin Ratio 01/12/18 01/12/18 01/12/18 08:24 08:24 08:24 WBC 2.5 L* RBC 4.30 Hgb 12.7 L Hct 39.0 L MCV 90.7 MCH 29.5 MCHC 32.6 RDW 17.4 H Plt Count 31 L* MPV 9.5 Gran % 61.0 Lymph % (Auto) 19.1 L Brooke % (Auto) 17.1 H Eos % (Auto) 2.4 Baso % (Auto) 0.4 Gran # 1.53 Lymph # (Auto) 0.5 L Brooke # (Auto) 0.4 Eos # (Auto) 0.1 Baso # (Auto) 0.01 PT 20.2 H INR 1.74 H APTT 36.2 Sodium 137 Potassium 4.1 Chloride 105 Carbon Dioxide 28 Anion Gap 8 L BUN 8 Creatinine 0.5 L Est GFR ( Amer) > 60 Est GFR (Non-Af Amer) > 60 POC Glucose (mg/dL) Random Glucose 242 H Calcium 8.7 Total Bilirubin 3.4 H AST 64 H D ALT 37 Alkaline Phosphatase 127 H Total Protein 5.5 L Albumin 2.0 L Globulin 3.4 Albumin/Globulin Ratio 0.6 L 01/12/18 11:11 WBC RBC Hgb Hct MCV MCH MCHC RDW Plt Count MPV Gran % Lymph % (Auto) Brooke % (Auto) Eos % (Auto) Baso % (Auto) Gran # Lymph # (Auto) Brooke # (Auto) Eos # (Auto) Baso # (Auto) PT INR APTT Sodium Potassium Chloride Carbon Dioxide Anion Gap BUN Creatinine Est GFR ( Amer) Est GFR (Non-Af Amer) POC Glucose (mg/dL) 256 H Random Glucose Calcium Total Bilirubin AST ALT Alkaline Phosphatase Total Protein Albumin Globulin Albumin/Globulin Ratio Intake & Output: Intake & Output 01/11/18 01/12/18 01/12/18 18:59 06:59 18:59 Intake Total 1320 Balance 1320 Intake: Oral 1320 Other: # Voids Urine, Voided 1 # Bowel Movements 0 Vital Signs: Vital Signs - 24 hr 01/11/18 01/11/18 01/12/18 14:00 17:25 00:00 Temperature 97.9 F 97.7 F Pulse Rate 83 83 Respiratory 18 18 Rate Blood Pressure 117/77 117/77 115/63 O2 Sat by Pulse 97 99 Oximetry 01/12/18 01/12/18 07:30 09:35 Temperature 98.1 F Pulse Rate 84 Respiratory 20 Rate Blood Pressure 116/64 120/67 O2 Sat by Pulse 97 Oximetry
--- NOTE | 2018-01-12 21:26 | PN ---
DATE: 01/12/2018 SUBJECTIVE: This patient was seen and evaluated earlier today. Patient comfortable, not in acute distress. PHYSICAL EXAMINATION: VITAL SIGNS: Temperature is 98.1, pulse 94, blood pressure is 120/67. HEENT: Atraumatic, anicteric. NECK: Supple. HEART: S1 and S2 heard. LUNGS: Bilateral air entry present. ABDOMEN: Distended. Large ascites present. EXTREMITIES: No cyanosis, no clubbing, no edema. LABORATORY DATA: WBC 2.5, hemoglobin 12.7, hematocrit 39, platelets 31. Chemistry shows albumin 2.0, total bilirubin 3.4. IMPRESSION: This is a 62-year-old patient with cirrhosis of the liver decompensated, admitted with abdominal pain and ascites. Patient was at home with Aldactone 100 mg and Lasix 20 mg. Patient was planned to have a large volume paracentesis and platelet transfusion prior to this paracentesis. Patient adamantly refused that. I did have a discussion again. Patient is refusing. Patient has scrotal edema. Patient is refusing paracentesis at that time. If it is, we will increase the dose. The concern is compliance of the patient with the medications. Patient would clearly benefits from the large volume paracentesis now and close followup of the electrolytes and as an outpatient in the clinic, if he is discharged. Patient also has a history of constipation, on lactulose, improved. Thank you very much for allowing us to participate in the care of the patient. Josue Stein MD
[2018-01-13 06:59] LABS: BASO # 0.01 K/mm3 (0.0-2.0); BASO % 0.3 % (0.0-3.0); EOS # 0.1 (0.0-0.7); EOS % 2.3 % (1.5-5.0); GRAN # 2.07 (1.4-6.5); GRAN % 68.3 % (50.0-68.0); HEMOGLOBIN 12.9 g/dL (14.0-18.0); LYMPH # 0.5 (1.2-3.4); LYMPH % 16.2 % (22.0-35.0); MEAN CELL VOLUME 90.8 fl (80.0-105.0); MEAN CORPUSCULAR HEMOGLOBIN 29.5 pg (25.0-35.0); MEAN CORPUSCULAR HGB CONC 32.5 g/dl (31.0-37.0); MEAN PLATELET VOLUME 10.5 fl (7.0-11.0); MONO # 0.4 (0.1-0.6); MONO % 12.9 % (1.0-6.0); RBC 4.37 10^6/uL (3.5-6.1); RED CELL DISTRIBUTION WIDTH 17.1 % (11.5-14.5)
[2018-01-13 07:19] LABS: INR 1.83 (0.93-1.08); PARTIAL THROMBOPLASTIN TIME 34.7 Seconds (25.1-36.5); PROTHROMBIN TIME 21.3 SECONDS (9.4-12.5)
[2018-01-13 07:24] LABS: ALB/GLOB RATIO 0.6 (1.1-1.8); ALBUMIN 2.1 g/dL (3.0-4.8); ALT/SGPT 40 U/L (7-56); AST/SGOT 62 U/L (17-59); BLOOD UREA NITROGEN 11 mg/dL (7-21); CALCIUM 8.7 mg/dL (8.4-10.5); GFR AFRICAN-AMERICAN > 60; GFR NON-AFRICAN AMERICAN > 60
[2018-01-13] MEDS: Insulin Reg-MEDIUM-Coverage SC SCH ×4 (08:40→22:22)
[2018-01-13] MEDS: Insulin Detemir 100 units/ml Vial (Levemir) SC SCH ×2 (10:55→17:08)
--- NOTE | 2018-01-13 14:26 | CP.PCM.PN ---
<AlexNegar - Last Filed: 01/13/18 14:27> Subjective - Date & Time of Evaluation Date of Evaluation: 01/13/18 Time of Evaluation: 14:21 - Subjective Subjective: Progress note Patient seen and examined at bedside. No acute events overnight. PAtient is agreeable to paracentesis and expresses concern that his scrotal swelling is worse. Dr. Newell's team was contacted and patient is on schedule for paracentesis tomorrow 01/14/18. Patient denies fever, chills, nausea, vomiting, diarrhea. Objective - Vital Signs/Intake and Output Vital Signs (last 24 hours): Temp Pulse Resp BP Pulse Ox 98.2 F 80 20 125/72 98 01/13/18 07:48 01/13/18 07:48 01/13/18 07:48 01/13/18 10:54 01/13/18 07:48 Intake and Output: 01/13/18 01/13/18 06:59 18:59 Intake Total 1140 Balance 1140 - Medications Medications: Current Medications Furosemide (Lasix) 20 mg IVP BID [facility] Last Admin: 01/13/18 10:54 Dose: 20 mg Insulin Detemir (Levemir) 20 unit SC BID [facility] Last Admin: 01/13/18 10:55 Dose: 20 unit Insulin Human Regular (Humulin R Med) 0 units SC ACHS [facility] PRN Reason: Protocol Last Admin: 01/13/18 12:28 Dose: 5 units Lactulose (Enulose) 20 gm PO BID [facility] Last Admin: 01/13/18 10:53 Dose: 20 gm Spironolactone (Aldactone) 100 mg PO DAILY [facility] Last Admin: 01/13/18 10:53 Dose: 100 mg - Labs Labs: 01/13/18 06:15 01/13/18 06:15 PT 21.3 SECONDS (9.4-12.5) H 01/13/18 06:15 INR 1.83 (0.93-1.08) H 01/13/18 06:15 APTT 34.7 Seconds (25.1-36.5) 01/13/18 06:15 - Constitutional Appears: Non-toxic, No Acute Distress - Head Exam Head Exam: ATRAUMATIC, NORMAL INSPECTION, NORMOCEPHALIC - Eye Exam Eye Exam: EOMI, Normal appearance Pupil Exam: NORMAL ACCOMODATION, PERRL - ENT Exam ENT Exam: Mucous Membranes Moist, Normal Exam - Neck Exam Neck Exam: Full ROM, Normal Inspection - Respiratory Exam Respiratory Exam: Clear to Ausculation Bilateral - Cardiovascular Exam Cardiovascular Exam: REGULAR RHYTHM, +S1, +S2 - GI/Abdominal Exam GI & Abdominal Exam: Distended, Soft, Tenderness Additional comments: positive fluid wave no tenderness - Extremities Exam Extremities Exam: Full ROM, Pedal Edema - Neurological Exam Neurological Exam: Alert, Awake, CN II-XII Intact, Oriented x3 - Psychiatric Exam Psychiatric exam: Normal Affect, Normal Mood - Skin Skin Exam: Dry, Intact, Normal Color, Warm Assessment and Plan - Assessment and Plan (Free Text) Assessment: 62 year old male with PMH Hepatitis C, cirrhosis, bilateral inguinal hernias, DM , presents for abdominal pain, scrotal/leg swelling, found to have extensive ascites/anasarca on imaging: Abdominal pain/scrotal and leg swellin/2 ascites 2/2 cirrhosis - Pt has hx of Hep C - CT Abdomen and Pelvis shows: Extensive ascites and anasarca. End-stage cirrhosis, splenomegaly and portal hypertension. Large amount of fluid in the scrotum and inguinal canals bilaterally. Chronic pancreatitis and dilated pancreatic duct, unchanged. - MELD 16 - 6% 3 month mortality - Ammonia level. Pt currently AAOx4. - Given Lasix 20 mg IV x1. - cont with home Aldactone 100mg PO, lactulose bid - NPO - I&Os - Scrotal US negative for torsion, per Dr. Oliverio Puga Urology Consult: patient is to have scrotal elevation - GI consult: Dr. Stein. f/u recommendations - IR consult: Patient to have paracentesis 01/10/18, but was cancelled because patient refused in IR. patient refused paracentesis multiple times - Urology consulted - Echocardiogram - Cont to monitor - Motrin prn Patient has lasix 20mg IVP BID Patient is scheduled for paracentesis 01/14 Leukopenia: - ANC 1140 - Afebrile - daily cbc - consider neutropenic precautions if ANC<1000. 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 F/u UA. - Given 8 units regular insulin in ED - Started on ISS - moderate - / started Levemir 20u BID - Cont to monitor Diet: Heart Healthy, low carb consistent, low 2gm Na diet PPX: SCDs, Pepcid Isolation room: found to have bedbugs - pt washed in ED, and off isolation discussed with Dr. Ruby Johnson, DO PGY1 <Jona Leavitt - Last Filed: 01/14/18 12:29> Objective - Vital Signs/Intake and Output Vital Signs (last 24 hours): Temp Pulse Resp BP Pulse Ox 97.9 F 75 18 104/64 97 01/14/18 07:30 01/14/18 07:30 01/14/18 07:30 01/14/18 10:15 01/14/18 07:30 Intake and Output: 01/14/18 01/14/18 06:59 18:59 Intake Total 1360 Balance 1360 - Medications Medications: Current Medications Furosemide (Lasix) 20 mg IVP BID [facility] Last Admin: 01/14/18 10:15 Dose: 20 mg Insulin Detemir (Levemir) 20 unit SC BID [facility] Last Admin: 01/14/18 10:14 Dose: 20 unit Insulin Human Regular (Humulin R Med) 0 units SC [facility] PRN Reason: Protocol Last Admin: 01/14/18 12:18 Dose: 5 units Lactulose (Enulose) 20 gm PO BID [facility] Last Admin: 01/14/18 10:11 Dose: 20 gm Spironolactone (Aldactone) 100 mg PO DAILY [facility] Last Admin: 01/14/18 10:14 Dose: 100 mg - Labs Labs: 01/14/18 06:45 01/14/18 06:45 PT 21.3 SECONDS (9.4-12.5) H 01/14/18 06:45 INR 1.83 (0.93-1.08) H 01/14/18 06:45 APTT 35.7 Seconds (25.1-36.5) 01/14/18 06:45 Attending/Attestation - Attestation I have personally seen and examined this patient.: Yes I have fully participated in the care of the patient.: Yes I have reviewed all pertinent clinical information, including history, physical exam and plan: Yes Notes (Text): 01/14/18 12:26 Medical record note made by the resident after discussion with my direction and input after the patient was personally seen and examined by me. I have reviewed the chart and agree that the record accurately reflects by personal performance of the history, physical exam, data review, and medical decision-making, in the course for the patient. I have also personally directed the plan of care. Patient is agreeable for Paracentesis.We will get IR consult. Patient Neutropenia and thrombocytopenia is due to chronic liver disease.Patient WBC count is 3.0 today improving, there is no need for neutropenic precaution at this time. Thrombocytopenia is stable.ThERE IS NO EVIDENCE OF BLEEDING.
--- NOTE | 2018-01-13 16:07 | CP.PCM.PN ---
<Kvng Rebolledo - Last Filed: 01/13/18 16:04> Subjective - Date & Time of Evaluation Date of Evaluation: 01/13/18 Time of Evaluation: 11:30 - Subjective Subjective: GI Progress Note - Dr. Stein Patient seen and examined at bedside. No acute complaints at this time. Pt is concerned about his le edema and scrotal swelling. Pt after much discussion agreed to paracentesis. No acute or adverse events overnight as per nursing staff. Pt tolerating po intake. Pt denied fever, chills sob, chest pains, abdominal pain, nausea, vomiting, diarrhea, or constipation. Objective - Vital Signs/Intake and Output Vital Signs (last 24 hours): Temp Pulse Resp BP Pulse Ox 98.2 F 80 20 125/72 98 01/13/18 07:48 01/13/18 07:48 01/13/18 07:48 01/13/18 10:54 01/13/18 07:48 Intake and Output: 01/13/18 01/13/18 06:59 18:59 Intake Total 1140 Balance 1140 - Medications Medications: Current Medications Furosemide (Lasix) 20 mg IVP BID [facility] Last Admin: 01/13/18 10:54 Dose: 20 mg Insulin Detemir (Levemir) 20 unit SC BID [facility] Last Admin: 01/13/18 10:55 Dose: 20 unit Insulin Human Regular (Humulin R Med) 0 units SC ACHS [facility] PRN Reason: Protocol Last Admin: 01/13/18 12:28 Dose: 5 units Lactulose (Enulose) 20 gm PO BID [facility] Last Admin: 01/13/18 10:53 Dose: 20 gm Spironolactone (Aldactone) 100 mg PO DAILY [facility] Last Admin: 01/13/18 10:53 Dose: 100 mg - Labs Labs: 01/13/18 06:15 01/13/18 06:15 PT 21.3 SECONDS (9.4-12.5) H 01/13/18 06:15 INR 1.83 (0.93-1.08) H 01/13/18 06:15 APTT 34.7 Seconds (25.1-36.5) 01/13/18 06:15 - Constitutional Appears: No Acute Distress - Head Exam Head Exam: ATRAUMATIC, NORMAL INSPECTION, NORMOCEPHALIC - Eye Exam Eye Exam: EOMI, Normal appearance, PERRL - ENT Exam ENT Exam: Mucous Membranes Moist, Normal Exam - Respiratory Exam Respiratory Exam: Clear to Ausculation Bilateral, NORMAL BREATHING PATTERN - Cardiovascular Exam Cardiovascular Exam: REGULAR RHYTHM, +S1, +S2. absent: Murmur - GI/Abdominal Exam GI & Abdominal Exam: Distended, Soft, Normal Bowel Sounds. absent: Tenderness - Exam Exam: Scrotal Swelling - Extremities Exam Extremities Exam: Pedal Edema - Neurological Exam Neurological Exam: Alert, Awake, CN II-XII Intact, Normal Gait, Oriented x3 - Psychiatric Exam Psychiatric exam: Normal Affect, Normal Mood - Skin Skin Exam: Dry, Intact, Normal Color, Warm Assessment and Plan - Assessment and Plan (Free Text) Assessment: 62 M with a PMHx of known and untreated Hep C, end stage liver cirrhosis, chronic pancreatitis, hepatic encephalopathy and IDDM presented to [facility] ED with complaints of lower abdominal pain x1 month secondary to ascites due to end stage liver cirrhosis. MELD 16 - 6% 3 month mortality. Hx of Hep C will need outpt fu. Pancytopenic - known end stage liver cirrhosis, 2 u plt ordered considering paracentesis CT Abdomen and Pelvis demonstrated: Extensive ascites and anasarca. End-stage cirrhosis, splenomegaly and portal hypertension. Large amount of fluid in the scrotum and inguinal canals bilaterally. Chronic pancreatitis and dilated pancreatic duct, unchanged. Continue lasix, consider increasing aldactone, lactulose. IR consulted for Paracentesis and supplement albumin based on fluid removed scheduled for tomorrow 01/14/18 Scrotal US negative GI DVT ppx reviewed Discussed with Dr. Stein <Josue Stein V - Last Filed: 01/13/18 23:09> Objective - Vital Signs/Intake and Output Vital Signs (last 24 hours): Temp Pulse Resp BP Pulse Ox 98.2 F 80 20 127/67 98 01/13/18 07:48 01/13/18 07:48 01/13/18 07:48 01/13/18 17:08 01/13/18 07:48 Intake and Output: 01/13/18 01/14/18 18:59 06:59 Intake Total 1360 Balance 1360 - Medications Medications: Current Medications Furosemide (Lasix) 20 mg IVP BID [facility] Last Admin: 01/13/18 17:08 Dose: 20 mg Insulin Detemir (Levemir) 20 unit SC BID [facility] Last Admin: 01/13/18 17:08 Dose: 20 unit Insulin Human Regular (Humulin R Med) 0 units SC [facility] PRN Reason: Protocol Last Admin: 01/13/18 22:22 Dose: Not Given Lactulose (Enulose) 20 gm PO BID [facility] Last Admin: 01/13/18 17:07 Dose: 20 gm Spironolactone (Aldactone) 100 mg PO DAILY [facility] Last Admin: 01/13/18 10:53 Dose: 100 mg - Labs Labs: 01/13/18 06:15 01/13/18 06:15 PT 21.3 SECONDS (9.4-12.5) H 01/13/18 06:15 INR 1.83 (0.93-1.08) H 01/13/18 06:15 APTT 34.7 Seconds (25.1-36.5) 01/13/18 06:15 Attending/Attestation - Attestation I have personally seen and examined this patient.: Yes I have fully participated in the care of the patient.: Yes I have reviewed all pertinent clinical information, including history, physical exam and plan: Yes
[2018-01-14 07:22] LABS: BASO # 0.02 K/mm3 (0.0-2.0); BASO % 0.6 % (0.0-3.0); EOS # 0.1 (0.0-0.7); EOS % 2.7 % (1.5-5.0); GRAN # 2.07 (1.4-6.5); HEMOGLOBIN 12.6 g/dL (14.0-18.0); LYMPH # 0.6 (1.2-3.4); LYMPH % 17.6 % (22.0-35.0); MEAN CELL VOLUME 90.1 fl (80.0-105.0); MEAN CORPUSCULAR HEMOGLOBIN 29.6 pg (25.0-35.0); MEAN CORPUSCULAR HGB CONC 32.9 g/dl (31.0-37.0); MEAN PLATELET VOLUME 8.9 fl (7.0-11.0); MONO # 0.5 (0.1-0.6); MONO % 16.1 % (1.0-6.0); RBC 4.25 10^6/uL (3.5-6.1); RED CELL DISTRIBUTION WIDTH 17.2 % (11.5-14.5); WHITE BLOOD COUNT 3.3 10^3/ul (4.5-11.0)
[2018-01-14 07:32] LABS: INR 1.83 (0.93-1.08); PARTIAL THROMBOPLASTIN TIME 35.7 Seconds (25.1-36.5); PROTHROMBIN TIME 21.3 SECONDS (9.4-12.5)
[2018-01-14 07:37] LABS: PLATELET COUNT 29 10^3/uL (120.0-450.0)
[2018-01-14 07:40] LABS: ALB/GLOB RATIO 0.6 (1.1-1.8); ALBUMIN 2.1 g/dL (3.0-4.8); ALT/SGPT 43 U/L (7-56); AST/SGOT 58 U/L (17-59); BLOOD UREA NITROGEN 11 mg/dL (7-21); CALCIUM 8.5 mg/dL (8.4-10.5); GFR AFRICAN-AMERICAN > 60; GFR NON-AFRICAN AMERICAN > 60
[2018-01-14] MEDS: Insulin Reg-MEDIUM-Coverage SC SCH ×5 (08:19→21:19)
[2018-01-14] MEDS: Insulin Detemir 100 units/ml Vial (Levemir) SC SCH ×2 (10:14→17:21)
--- NOTE | 2018-01-14 13:44 | CP.PCM.PN ---
<Kvng Rebolledo - Last Filed: 01/14/18 13:41> Subjective - Date & Time of Evaluation Date of Evaluation: 01/14/18 Time of Evaluation: 10:00 - Subjective Subjective: GI Progress Note - Dr. Stein Patient seen and examined at bedside. No acute complaints at this time. Pt is for paracentesis later this afternoon. PT is tolerating po diet. No acute or adverse events overnight as per nursing staff. Pt denied fever, chills sob, chest pains, abdominal pain, nausea, vomiting, diarrhea, or constipation. Objective - Vital Signs/Intake and Output Vital Signs (last 24 hours): Temp Pulse Resp BP Pulse Ox 97.9 F 75 18 104/64 97 01/14/18 07:30 01/14/18 07:30 01/14/18 07:30 01/14/18 10:15 01/14/18 07:30 Intake and Output: 01/14/18 01/14/18 06:59 18:59 Intake Total 1360 Balance 1360 - Medications Medications: Current Medications Furosemide (Lasix) 20 mg IVP BID [facility] Last Admin: 01/14/18 10:15 Dose: 20 mg Insulin Detemir (Levemir) 20 unit SC BID [facility] Last Admin: 01/14/18 10:14 Dose: 20 unit Insulin Human Regular (Humulin R Med) 0 units SC ACHS [facility] PRN Reason: Protocol Last Admin: 01/14/18 12:18 Dose: 5 units Lactulose (Enulose) 20 gm PO BID [facility] Last Admin: 01/14/18 10:11 Dose: 20 gm Spironolactone (Aldactone) 100 mg PO DAILY [facility] Last Admin: 01/14/18 10:14 Dose: 100 mg - Labs Labs: 01/14/18 06:45 01/14/18 06:45 PT 21.3 SECONDS (9.4-12.5) H 01/14/18 06:45 INR 1.83 (0.93-1.08) H 01/14/18 06:45 APTT 35.7 Seconds (25.1-36.5) 01/14/18 06:45 - Constitutional Appears: No Acute Distress - Head Exam Head Exam: ATRAUMATIC, NORMAL INSPECTION, NORMOCEPHALIC - Eye Exam Eye Exam: EOMI, Normal appearance, PERRL Pupil Exam: NORMAL ACCOMODATION, PERRL - ENT Exam ENT Exam: Mucous Membranes Moist, Normal Exam - Respiratory Exam Respiratory Exam: Clear to Ausculation Bilateral, NORMAL BREATHING PATTERN - Cardiovascular Exam Cardiovascular Exam: REGULAR RHYTHM, +S1, +S2. absent: Murmur - GI/Abdominal Exam GI & Abdominal Exam: Distended, Soft, Tenderness, Normal Bowel Sounds Assessment and Plan - Assessment and Plan (Free Text) Assessment: 62 M with a PMHx of known and untreated Hep C, end stage liver cirrhosis, chronic pancreatitis, hepatic encephalopathy and IDDM presented [place] [facility] with complaints of lower abdominal pain x1 month secondary to ascites due to end stage liver cirrhosis. MELD 16 - 6% 3 month mortality. Hx of Hep C will need outpt fu. Pancytopenic - known end stage liver cirrhosis, plt ordered considering paracentesis, no signs of bleeding CT Abdomen and Pelvis demonstrated: Extensive ascites and anasarca. End-stage cirrhosis, splenomegaly and portal hypertension. Large amount of fluid in the scrotum and inguinal canals bilaterally. Chronic pancreatitis and dilated pancreatic duct, unchanged. Continue lasix, consider increasing aldactone, lactulose. IR consulted for Paracentesis and supplement albumin based on fluid removed scheduled for tomorrow 01/14/18 Scrotal US negative, swelling worse, fu after paracentesis GI DVT ppx reviewed Discussed with Dr. Stein <Josue Stein V - Last Filed: 01/14/18 23:56> Objective - Vital Signs/Intake and Output Vital Signs (last 24 hours): Temp Pulse Resp BP Pulse Ox 97.9 F 77 16 106/64 95 01/14/18 22:59 01/14/18 22:59 01/14/18 22:59 01/14/18 22:59 01/14/18 22:59 Intake and Output: 01/14/18 01/15/18 18:59 06:59 Intake Total 640 Balance 640 - Medications Medications: Current Medications Furosemide (Lasix) 20 mg IVP BID [facility] Last Admin: 01/14/18 17:21 Dose: 20 mg Insulin Detemir (Levemir) 20 unit SC BID [facility] Last Admin: 01/14/18 17:21 Dose: 20 unit Insulin Human Regular (Humulin R Med) 0 units SC [facility] PRN Reason: Protocol Last Admin: 01/14/18 21:19 Dose: Not Given Lactulose (Enulose) 20 gm PO BID [facility] Last Admin: 01/14/18 17:28 Dose: Not Given Spironolactone (Aldactone) 100 mg PO DAILY [facility] Last Admin: 01/14/18 10:14 Dose: 100 mg - Labs Labs: 01/14/18 06:45 01/14/18 06:45 PT 21.3 SECONDS (9.4-12.5) H 01/14/18 06:45 INR 1.83 (0.93-1.08) H 01/14/18 06:45 APTT 35.7 Seconds (25.1-36.5) 01/14/18 06:45 Attending/Attestation - Attestation I have personally seen and examined this patient.: Yes I have fully participated in the care of the patient.: Yes I have reviewed all pertinent clinical information, including history, physical exam and plan: Yes Notes (Text): This is an addendum to GI consult report dictated by the First Aid Director.The patient was seen and examined earlier. Medical records, lab studies, imagings were reviewed. Last 24 hours events reviewed. Agreed with the above treatment plan as outlined in First Aid Director 's notes the with the addition of the following 01/14/18 23:56
[2018-01-14 14:57] LABS: BODY FLUID TYPE PERITONEAL/ASCITES
[2018-01-14 15:36] LABS: BF GROSS APPEARANCE SL CLOUDY (CLEAR)
[2018-01-14 15:37] LABS: BODY FLUID RBC 3405.6 /uL (0.0-0.0); BODY FLUID TOTAL COUNT 100 (0-0)
--- NOTE | 2018-01-14 18:01 | US ---
PROCEDURE: Ultrasound guided paracentesis. HISTORY: Hepatitis-C cirrhosis. New onset ascites. PHYSICIAN(S): Harman Newell MD. TECHNIQUE: The relative risks and indications for the procedure were explained to the patient and informed written consent obtained. Sonography of the abdomen was performed in a supine position. This revealed a small amount of non-loculated ascites, greatest in the right mid abdomen. A puncture site was selected and the area was prepped and draped in the usual sterile fashion. 1% Xylocaine was used to anesthetize the skin and soft tissues. A 21 gauge needle was advanced into the right peritoneal space and 120 cc of jim fluid aspirated. The appropriate labs were sent IMPRESSION: Ultrasound-guided paracentesis in the right mid abdomen. 120 cc of fluid were aspirated. Labs were sent
[2018-01-15 07:16] LABS: BASO # 0.01 K/mm3 (0.0-2.0); BASO % 0.4 % (0.0-3.0); EOS # 0.1 (0.0-0.7); EOS % 2.6 % (1.5-5.0); GRAN # 1.66 (1.4-6.5); GRAN % 62.4 % (50.0-68.0); LYMPH # 0.6 (1.2-3.4); LYMPH % 23.3 % (22.0-35.0); MEAN CELL VOLUME 89.6 fl (80.0-105.0); MEAN CORPUSCULAR HEMOGLOBIN 29.8 pg (25.0-35.0); MEAN CORPUSCULAR HGB CONC 33.2 g/dl (31.0-37.0); MEAN PLATELET VOLUME 10.2 fl (7.0-11.0); MONO # 0.3 (0.1-0.6); MONO % 11.3 % (1.0-6.0); RBC 4.03 10^6/uL (3.5-6.1); RED CELL DISTRIBUTION WIDTH 16.8 % (11.5-14.5)
[2018-01-15 07:25] LABS: WHITE BLOOD COUNT 2.7 10^3/ul (4.5-11.0)
[2018-01-15 07:27] LABS: ALB/GLOB RATIO 0.6 (1.1-1.8); ALT/SGPT 39 U/L (7-56); AST/SGOT 53 U/L (17-59); BLOOD UREA NITROGEN 12 mg/dL (7-21); CALCIUM 8.5 mg/dL (8.4-10.5); GFR AFRICAN-AMERICAN > 60; GFR NON-AFRICAN AMERICAN > 60; INR 1.8 (0.93-1.08); PARTIAL THROMBOPLASTIN TIME 37.5 Seconds (25.1-36.5)
[2018-01-15 08:04] VITALS: RESP 18
[2018-01-15] MEDS: Insulin Reg-MEDIUM-Coverage SC SCH ×2 (08:14→12:21)
--- NOTE | 2018-01-15 08:33 | CP.PCM.PN ---
Subjective - Date & Time of Evaluation Date of Evaluation: 01/15/18 Time of Evaluation: 08:30 - Subjective Subjective: Progress note for Dr. Leavitt Patient seen and examined at bedside. Per nursing notes. Patient had 120cc removed from abdomen. Patient denies fever, chills, abdominal pain, nausea, vomiting. Objective - Vital Signs/Intake and Output Vital Signs (last 24 hours): Temp Pulse Resp BP Pulse Ox 98 F 77 18 103/70 97 01/15/18 07:58 01/15/18 07:58 01/15/18 07:58 01/15/18 07:58 01/15/18 07:58 Intake and Output: 01/15/18 01/15/18 06:59 18:59 Intake Total 820 Balance 820 - Medications Medications: Current Medications Furosemide (Lasix) 20 mg IVP BID [facility] Last Admin: 01/14/18 17:21 Dose: 20 mg Insulin Detemir (Levemir) 20 unit SC BID [facility] Last Admin: 01/14/18 17:21 Dose: 20 unit Insulin Human Regular (Humulin R Med) 0 units SC [facility] PRN Reason: Protocol Last Admin: 01/15/18 08:14 Dose: 3 units Lactulose (Enulose) 20 gm PO BID [facility] Last Admin: 01/14/18 17:28 Dose: Not Given Spironolactone (Aldactone) 100 mg PO DAILY [facility] Last Admin: 01/14/18 10:14 Dose: 100 mg - Labs Labs: 01/15/18 06:20 01/15/18 06:20 PT 21.0 SECONDS (9.4-12.5) H 01/15/18 06:20 INR 1.80 (0.93-1.08) H 01/15/18 06:20 APTT 37.5 Seconds (25.1-36.5) H 01/15/18 06:20 - Constitutional Appears: Non-toxic, No Acute Distress - Head Exam Head Exam: ATRAUMATIC, NORMAL INSPECTION, NORMOCEPHALIC - Eye Exam Eye Exam: EOMI, Normal appearance Pupil Exam: NORMAL ACCOMODATION, PERRL - ENT Exam ENT Exam: Mucous Membranes Moist, Normal Exam - Neck Exam Neck Exam: Full ROM, Normal Inspection. absent: Thyromegaly - Respiratory Exam Respiratory Exam: Clear to Ausculation Bilateral, NORMAL BREATHING PATTERN. absent: Accessory Muscle Use - Cardiovascular Exam Cardiovascular Exam: REGULAR RHYTHM, +S1, +S2. absent: Bradycardia, Tachycardia - GI/Abdominal Exam GI & Abdominal Exam: Distended, Soft, Normal Bowel Sounds Additional comments: dressings clean, dry, intact - Extremities Exam Extremities Exam: Full ROM. absent: Pedal Edema - Back Exam Back Exam: Full ROM, NORMAL INSPECTION - Neurological Exam Neurological Exam: Awake, CN II-XII Intact - Psychiatric Exam Psychiatric exam: Normal Affect, Normal Mood - Skin Skin Exam: Dry, Intact, Normal Color, Warm Assessment and Plan - Assessment and Plan (Free Text) Assessment: 62 year old male with PMH Hepatitis C, cirrhosis, bilateral inguinal hernias, DM , presents for abdominal pain, scrotal/leg swelling, found to have extensive ascites/anasarca on imaging Abdominal pain/scrotal and leg swellin/2 ascites 2/2 cirrhosis - Pt has hx of Hep C - CT Abdomen and Pelvis shows: Extensive ascites and anasarca. End-stage cirrhosis, splenomegaly and portal hypertension. Large amount of fluid in the scrotum and inguinal canals bilaterally. Chronic pancreatitis and dilated pancreatic duct, unchanged. - MELD 16 - 6% 3 month mortality - Ammonia level. Pt currently AAOx4. - Given Lasix 20 mg IV x1. - cont with home Aldactone 100mg PO, lactulose bid - NPO - I&Os - Scrotal US negative for torsion, per Dr. Oliverio Puga Urology Consult: patient is to have scrotal elevation - GI consult: Dr. Stein. f/u recommendations - IR consult: Patient to have paracentesis 01/10/18, but was cancelled because patient refused in IR. patient refused paracentesis multiple times - Urology consulted - Echocardiogram - Cont to monitor - Motrin prn Patient has lasix 20mg IVP BID Patient is scheduled for paracentesis 01/14 120cc removed. specimens sent to lab for testing Leukopenia: - ANC 1140 - Afebrile - daily cbc - consider neutropenic precautions if ANC<1000. 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 F/u UA. - Given 8 units regular insulin in ED - Started on ISS - moderate - 3/3 started Levemir 20u BID - Cont to monitor Diet: Heart Healthy, low carb consistent, low 2gm Na diet PPX: SCDs, Pepcid Isolation room: found to have bedbugs - pt washed in ED, and off isolation discussed with Dr. Dagmar Johnson, DO PGY1
[2018-01-15] MEDS: Insulin Detemir 100 units/ml Vial (Levemir) SC SCH (10:16)
--- NOTE | 2018-01-15 12:31 | CP.PCM.DIS ---
<Eng,Negar - Last Filed: 01/15/18 15:18> Provider - Provider Date of Admission: 01/09/18 00:02 Attending physician: Jona Leavitt MD Primary care physician: NO PRIMARY CARE PROVIDER Consults: Dr. Emil Newell Time Spent in preparation of Discharge (in minutes): 35 Hospital Course - Lab Results Lab Results: Micro Results 01/09/18 02:05 Urine,Clean Catch Urine Culture - Final No Growth (<1,000 CFU/ML) Most Recent Lab Values WBC 2.7 10^3/ul (4.5-11.0) L* 01/15/18 06:20 RBC 4.03 10^6/uL (3.5-6.1) 01/15/18 06:20 Hgb 12.0 g/dL (14.0-18.0) L 01/15/18 06:20 Hct 36.1 % (42.0-52.0) L 01/15/18 06:20 MCV 89.6 fl (80.0-105.0) 01/15/18 06:20 MCH 29.8 pg (25.0-35.0) 01/15/18 06:20 MCHC 33.2 g/dl (31.0-37.0) 01/15/18 06:20 RDW 16.8 % (11.5-14.5) H 01/15/18 06:20 Plt Count 37 10^3/uL (120.0-450.0) L* 01/15/18 06:20 Manual Plt Count 45 K/mm3 (120-450) L* 01/15/18 06:30 MPV 10.2 fl (7.0-11.0) 01/15/18 06:20 Gran % 62.4 % (50.0-68.0) 01/15/18 06:20 Lymph % (Auto) 23.3 % (22.0-35.0) 01/15/18 06:20 Winn % (Auto) 11.3 % (1.0-6.0) H 01/15/18 06:20 Eos % (Auto) 2.6 % (1.5-5.0) 01/15/18 06:20 Baso % (Auto) 0.4 % (0.0-3.0) 01/15/18 06:20 Gran # 1.66 (1.4-6.5) 01/15/18 06:20 Lymph # (Auto) 0.6 (1.2-3.4) L 01/15/18 06:20 Winn # (Auto) 0.3 (0.1-0.6) 01/15/18 06:20 Eos # (Auto) 0.1 (0.0-0.7) 01/15/18 06:20 Baso # (Auto) 0.01 K/mm3 (0.0-2.0) 01/15/18 06:20 Neutrophils % (Manual) 55 % (50.0-70.0) 01/10/18 06:30 Lymphocytes % (Manual) 32 % (22.0-35.0) 01/10/18 06:30 Monocytes % (Manual) 12 % (1.0-6.0) H 01/10/18 06:30 Eosinophils % (Manual) 1 % (0.0-3.0) 01/10/18 06:30 Platelet Evaluation Low (NORMAL) 01/10/18 06:30 Anisocytosis (manual) 1+ 01/10/18 06:30 PT 21.0 SECONDS (9.4-12.5) H 01/15/18 06:20 INR 1.80 (0.93-1.08) H 01/15/18 06:20 APTT 37.5 Seconds (25.1-36.5) H 01/15/18 06:20 Sodium 132 mmol/L (132-148) 01/15/18 06:20 Potassium 4.5 mmol/L (3.6-5.0) 01/15/18 06:20 Chloride 102 mmol/L (98-107) 01/15/18 06:20 Carbon Dioxide 30 mmol/L (21-33) 01/15/18 06:20 Anion Gap 4 (10-20) L 01/15/18 06:20 BUN 12 mg/dL (7-21) 01/15/18 06:20 Creatinine 0.5 mg/dl (0.8-1.5) L 01/15/18 06:20 Est GFR ( Amer) > 60 01/15/18 06:20 Est GFR (Non-Af Amer) > 60 01/15/18 06:20 POC Glucose (mg/dL) 264 mg/dL (65-110) H 01/15/18 11:22 Random Glucose 262 mg/dL (70-110) H 01/15/18 06:20 Hemoglobin A1c 11.6 % (4.2-6.5) H 01/09/18 05:35 Calcium 8.5 mg/dL (8.4-10.5) 01/15/18 06:20 Total Bilirubin 3.1 mg/dL (0.2-1.3) H 01/15/18 06:20 AST 53 U/L (17-59) 01/15/18 06:20 ALT 39 U/L (7-56) 01/15/18 06:20 Alkaline Phosphatase 122 U/L (38-126) 01/15/18 06:20 Ammonia 23 umol/L (9-33) 01/09/18 02:05 Lactate Dehydrogenase 665 U/L (333-699) 01/08/18 22:00 Total Creatine Kinase 171 U/L (35-230) 01/08/18 22:00 Troponin I 0.01 ng/mL 01/08/18 22:00 NT-Pro-B Natriuret Pep 215 pg/mL (0-450) 01/08/18 22:00 Total Protein 5.4 g/dL (5.8-8.3) L 01/15/18 06:20 Albumin 2.0 g/dL (3.0-4.8) L 01/15/18 06:20 Globulin 3.4 gm/dL 01/15/18 06:20 Albumin/Globulin Ratio 0.6 (1.1-1.8) L 01/15/18 06:20 Amylase 33 U/L (35-125) L 01/08/18 22:00 Lipase 230 U/L (23-300) 01/08/18 22:00 Urine Color Yellow (YELLOW) 01/09/18 02:05 Urine Appearance Clear (CLEAR) 01/09/18 02:05 Urine pH 6.0 (4.7-8.0) 01/09/18 02:05 Ur Specific [place] 1.010 (1.005-1.035) 01/09/18 02:05 Urine Protein Negative mg/dL (<30 mg/dL) 01/09/18 02:05 Urine Glucose (UA) >=1000 mg/dL (NEGATIVE) 01/09/18 02:05 Urine Ketones Trace mg/dL (NEGATIVE) H 01/09/18 02:05 Urine Blood Trace-intact (NEGATIVE) H 01/09/18 02:05 Urine Nitrate Negative (NEGATIVE) 01/09/18 02:05 Urine Bilirubin Negative (NEGATIVE) 01/09/18 02:05 Urine Urobilinogen 0.2 E.U./dL (<1 E.U./dL) 01/09/18 02:05 Ur Leukocyte Esterase Negative Tank/uL (NEGATIVE) 01/09/18 02:05 Urine RBC 0 - 2 /hpf (0-2) 01/09/18 02:05 Urine WBC 0 - 2 /hpf (0-6) 01/09/18 02:05 Ur Epithelial Cells 0 - 2 /hpf (0-5) 01/09/18 02:05 Fluid Source Peritoneal/ascites 01/14/18 14:15 Fluid Appearance Sl cloudy (CLEAR) 01/14/18 14:15 Fluid WBC 414.0 /uL (0.0-300.0) H 01/14/18 14:15 Fluid RBC 3405.6 /uL (0.0-0.0) H 01/14/18 14:15 Fluid Tot Cell Count 100 (0-0) H 01/14/18 14:15 Fluid Neutrophils 13.0 % (0-0) H 01/14/18 14:15 Fluid Lymphocytes 87.0 % (0-0) H 01/14/18 14:15 Fld Monocyte/Macrophag TEST NOT PERFORMED 01/14/18 14:15 Fluid Comment None 01/14/18 14:15 Blood Type O POSITIVE 01/09/18 02:05 Blood Type Confirm O POSITIVE 01/09/18 05:35 Antibody Screen Negative 01/09/18 02:05 BBK History Checked No verified bt 01/09/18 02:05 - Hospital Course Hospital Course: 62 year old male with PMH Hep C, cirrhosis, bilateral inguinal hernias, IDDM, presents for lower abdominal pain for past month. Pt states that he has not been taking his lasix, aldatone and other home meds for past month (as he ran out of them, no PMD). He has abdominal distention, ascites, scrotal swelling, bilateral leg swelling, jaundice. He does not have a PMD as he cannot afford it. Denies fever, chills, confusion/lethargy, headache, cp, sob, diarrhea/ constipation, urinary symptoms, easy bleeding/bruising, hematemesis, hematochezia, melena. He was previously seen at [facility] in 07/2017 for hepatic encephalopathy/abdominal pain. Patient was given lasix and dose increased to Lasix 20mg BID Patient had 120cc drained from abdomen by Dr. Newell. GI consult: Dr. Stein, known end stage liver cirrhosis due to hep C, chronic pancreatitis and dilated pancreatic duct. Scrotal US, no torsion. Dr. Puga consulted for scrotal swelling with recommendations to elevate the scrotum. Patient discharged with aldactone 50mg QD, lasix 20mg daily told to restrict fluid intake to 1500cc per day low sodium diet - Date & Time of H&P Date of H&P: 01/15/18 Time of H&P: 12:30 Discharge Exam - Head Exam Head Exam: ATRAUMATIC, NORMAL INSPECTION, NORMOCEPHALIC Discharge Plan - Discharge Medications Prescriptions: Furosemide [Lasix] 40 mg PO DAILY #30 tablet Spironolactone [Aldactone] 100 mg PO DAILY #30 tablet - Follow Up Plan Condition: FAIR Disposition: HOME/ ROUTINE Instructions: Fluid in the Belly (Ascites), Low Salt Diet, Fluid Restricted Diet Additional Instructions: follow up with GI clinic in one week follow up with [facility] clinic in one week for monitoring kidney, electrolyte function, and BNP in one week Patient discharged with aldactone 100mg QD, lasix 40mg daily told to restrict fluid intake to 1500cc per day low sodium diet Referrals: PCP,NO [Primary Care Provider] - <Jona Leavitt - Last Filed: 01/17/18 12:01> Provider - Provider Date of Admission: 01/09/18 00:02 Attending physician: Jona Leavitt MD Primary care physician: NO PRIMARY CARE PROVIDER Hospital Course - Lab Results Lab Results: Micro Results 01/14/18 14:15 Ascitic Fluid Body Fluid Culture - Preliminary NO GROWTH AFTER 24 HOURS 01/14/18 14:15 Ascitic Fluid Fungal Culture - Preliminary 01/09/18 02:05 Urine,Clean Catch Urine Culture - Final No Growth (<1,000 CFU/ML) Most Recent Lab Values WBC 2.7 10^3/ul (4.5-11.0) L* 01/15/18 06:20 RBC 4.03 10^6/uL (3.5-6.1) 01/15/18 06:20 Hgb 12.0 g/dL (14.0-18.0) L 01/15/18 06:20 Hct 36.1 % (42.0-52.0) L 01/15/18 06:20 MCV 89.6 fl (80.0-105.0) 01/15/18 06:20 MCH 29.8 pg (25.0-35.0) 01/15/18 06:20 MCHC 33.2 g/dl (31.0-37.0) 01/15/18 06:20 RDW 16.8 % (11.5-14.5) H 01/15/18 06:20 Plt Count 37 10^3/uL (120.0-450.0) L* 01/15/18 06:20 Manual Plt Count 45 K/mm3 (120-450) L* 01/15/18 06:30 MPV 10.2 fl (7.0-11.0) 01/15/18 06:20 Gran % 62.4 % (50.0-68.0) 01/15/18 06:20 Lymph % (Auto) 23.3 % (22.0-35.0) 01/15/18 06:20 Winn % (Auto) 11.3 % (1.0-6.0) H 01/15/18 06:20 Eos % (Auto) 2.6 % (1.5-5.0) 01/15/18 06:20 Baso % (Auto) 0.4 % (0.0-3.0) 01/15/18 06:20 Gran # 1.66 (1.4-6.5) 01/15/18 06:20 Lymph # (Auto) 0.6 (1.2-3.4) L 01/15/18 06:20 Winn # (Auto) 0.3 (0.1-0.6) 01/15/18 06:20 Eos # (Auto) 0.1 (0.0-0.7) 01/15/18 06:20 Baso # (Auto) 0.01 K/mm3 (0.0-2.0) 01/15/18 06:20 Neutrophils % (Manual) 55 % (50.0-70.0) 01/10/18 06:30 Lymphocytes % (Manual) 32 % (22.0-35.0) 01/10/18 06:30 Monocytes % (Manual) 12 % (1.0-6.0) H 01/10/18 06:30 Eosinophils % (Manual) 1 % (0.0-3.0) 01/10/18 06:30 Platelet Evaluation Low (NORMAL) 01/10/18 06:30 Anisocytosis (manual) 1+ 01/10/18 06:30 PT 21.0 SECONDS (9.4-12.5) H 01/15/18 06:20 INR 1.80 (0.93-1.08) H 01/15/18 06:20 APTT 37.5 Seconds (25.1-36.5) H 01/15/18 06:20 Sodium 132 mmol/L (132-148) 01/15/18 06:20 Potassium 4.5 mmol/L (3.6-5.0) 01/15/18 06:20 Chloride 102 mmol/L (98-107) 01/15/18 06:20 Carbon Dioxide 30 mmol/L (21-33) 01/15/18 06:20 Anion Gap 4 (10-20) L 01/15/18 06:20 BUN 12 mg/dL (7-21) 01/15/18 06:20 Creatinine 0.5 mg/dl (0.8-1.5) L 01/15/18 06:20 Est GFR ( Amer) > 60 01/15/18 06:20 Est GFR (Non-Af Amer) > 60 01/15/18 06:20 POC Glucose (mg/dL) 288 mg/dL (65-110) H 01/15/18 16:57 Random Glucose 262 mg/dL (70-110) H 01/15/18 06:20 Hemoglobin A1c 11.6 % (4.2-6.5) H 01/09/18 05:35 Calcium 8.5 mg/dL (8.4-10.5) 01/15/18 06:20 Total Bilirubin 3.1 mg/dL (0.2-1.3) H 01/15/18 06:20 AST 53 U/L (17-59) 01/15/18 06:20 ALT 39 U/L (7-56) 01/15/18 06:20 Alkaline Phosphatase 122 U/L (38-126) 01/15/18 06:20 Ammonia 23 umol/L (9-33) 01/09/18 02:05 Lactate Dehydrogenase 665 U/L (333-699) 01/08/18 22:00 Total Creatine Kinase 171 U/L (35-230) 01/08/18 22:00 Troponin I 0.01 ng/mL 01/08/18 22:00 NT-Pro-B Natriuret Pep 215 pg/mL (0-450) 01/08/18 22:00 Total Protein 5.4 g/dL (5.8-8.3) L 01/15/18 06:20 Albumin 2.0 g/dL (3.0-4.8) L 01/15/18 06:20 Globulin 3.4 gm/dL 01/15/18 06:20 Albumin/Globulin Ratio 0.6 (1.1-1.8) L 01/15/18 06:20 Amylase 33 U/L (35-125) L 01/08/18 22:00 Lipase 230 U/L (23-300) 01/08/18 22:00 Urine Color Yellow (YELLOW) 01/09/18 02:05 Urine Appearance Clear (CLEAR) 01/09/18 02:05 Urine pH 6.0 (4.7-8.0) 01/09/18 02:05 Ur Specific [place] 1.010 (1.005-1.035) 01/09/18 02:05 Urine Protein Negative mg/dL (<30 mg/dL) 01/09/18 02:05 Urine Glucose (UA) >=1000 mg/dL (NEGATIVE) 01/09/18 02:05 Urine Ketones Trace mg/dL (NEGATIVE) H 01/09/18 02:05 Urine Blood Trace-intact (NEGATIVE) H 01/09/18 02:05 Urine Nitrate Negative (NEGATIVE) 01/09/18 02:05 Urine Bilirubin Negative (NEGATIVE) 01/09/18 02:05 Urine Urobilinogen 0.2 E.U./dL (<1 E.U./dL) 01/09/18 02:05 Ur Leukocyte Esterase Negative Tank/uL (NEGATIVE) 01/09/18 02:05 Urine RBC 0 - 2 /hpf (0-2) 01/09/18 02:05 Urine WBC 0 - 2 /hpf (0-6) 01/09/18 02:05 Ur Epithelial Cells 0 - 2 /hpf (0-5) 01/09/18 02:05 Fluid Source Peritoneal/ascites 01/14/18 14:15 Fluid Appearance Sl cloudy (CLEAR) 01/14/18 14:15 Fluid WBC 414.0 /uL (0.0-300.0) H 01/14/18 14:15 Fluid RBC 3405.6 /uL (0.0-0.0) H 01/14/18 14:15 Fluid Tot Cell Count 100 (0-0) H 01/14/18 14:15 Fluid Neutrophils 13.0 % (0-0) H 01/14/18 14:15 Fluid Lymphocytes 87.0 % (0-0) H 01/14/18 14:15 Fld Monocyte/Macrophag TEST NOT PERFORMED 01/14/18 14:15 Fluid Comment None 01/14/18 14:15 Peritoneal Lipase 5.0 U/L (<10) 01/14/18 14:15 Blood Type O POSITIVE 01/09/18 02:05 Blood Type Confirm O POSITIVE 01/09/18 05:35 Antibody Screen Negative 01/09/18 02:05 BBK History Checked No verified bt 01/09/18 02:05 Attending/Attestation - Attestation I have personally seen and examined this patient.: Yes I have fully participated in the care of the patient.: Yes I have reviewed all pertinent clinical information, including history, physical exam and plan: Yes Notes (Text): 01/17/18 11:56 Medical record note made by the resident after discussion with my direction and input after the patient was personally seen and examined by me. I have reviewed the chart and agree that the record accurately reflects by personal performance of the history, physical exam, data review, and medical decision-making, in the course for the patient. I have also personally directed the plan of care. 62 yrs old male with PMH of Hep c and Anasarca was admitted with worsening ascites and scrotal edema, has responded well to IV lasix and aldactone. He is ambulatory and is on room air.He will be discharged home on oral lasix and aldactone.The issue of compliance with medication was discussed in detail.He will follow up with [facility] clinic.Patient Neutropenia and thrombocytopenia is due to chronic liver disease .Patient is afebrile.There is no evidence of bleeding. Prognosis is guarded. Management plan was discussed in detail with patient. Education was provided.
[2018-01-15 14:46] VITALS: BP 108/65; PULSE 78; TEMP 98.4; O2SAT 95
--- NOTE | 2018-01-15 21:54 | CP.PCM.PN ---
<AmauryMaumarbella - Last Filed: 01/15/18 21:51> Subjective - Date & Time of Evaluation Date of Evaluation: 01/15/18 Time of Evaluation: 08:30 - Subjective Subjective: GI Progress Note - Dr. Stein Patient seen and examined at bedside. No acute complaints at this time. Pt tolerated paracentesis. 120cc removed. PT is tolerating po diet. Pt states his scrotal swelling has improved. No acute or adverse events overnight as per nursing staff. Pt denied fever, chills sob, chest pains, abdominal pain, nausea , vomiting, diarrhea, or constipation. Objective - Vital Signs/Intake and Output Vital Signs (last 24 hours): Temp Pulse Resp BP Pulse Ox 98.4 F 78 18 108/65 95 01/15/18 14:00 01/15/18 14:00 01/15/18 14:00 01/15/18 14:00 01/15/18 14:00 Intake and Output: 01/15/18 01/16/18 18:59 06:59 Intake Total 720 Balance 720 - Labs Labs: 01/15/18 06:20 01/15/18 06:20 PT 21.0 SECONDS (9.4-12.5) H 01/15/18 06:20 INR 1.80 (0.93-1.08) H 01/15/18 06:20 APTT 37.5 Seconds (25.1-36.5) H 01/15/18 06:20 - Constitutional Appears: No Acute Distress - Head Exam Head Exam: ATRAUMATIC, NORMAL INSPECTION, NORMOCEPHALIC - Eye Exam Eye Exam: EOMI, Normal appearance, PERRL - ENT Exam ENT Exam: Mucous Membranes Moist, Normal Exam - Respiratory Exam Respiratory Exam: Clear to Ausculation Bilateral, NORMAL BREATHING PATTERN - Cardiovascular Exam Cardiovascular Exam: REGULAR RHYTHM, +S1, +S2. absent: Murmur - GI/Abdominal Exam GI & Abdominal Exam: Soft, Normal Bowel Sounds. absent: Tenderness - Extremities Exam Extremities Exam: Pedal Edema - Neurological Exam Neurological Exam: Alert, Awake, CN II-XII Intact, Normal Gait, Oriented x3 - Psychiatric Exam Psychiatric exam: Normal Affect, Normal Mood - Skin Skin Exam: Dry, Intact, Normal Color, Warm Assessment and Plan - Assessment and Plan (Free Text) Assessment: 62 M with a PMHx of known and untreated Hep C, end stage liver cirrhosis, chronic pancreatitis, hepatic encephalopathy and IDDM presented to [facility] with complaints of lower abdominal pain x1 month secondary to ascites due to end stage liver cirrhosis. MELD 16 - 6% 3 month mortality. Hx of Hep C will need outpt fu. Pancytopenic - known end stage liver cirrhosis, plt transfused. no signs of bleeding CT Abdomen and Pelvis demonstrated: Extensive ascites and anasarca. End-stage cirrhosis, splenomegaly and portal hypertension. Large amount of fluid in the scrotum and inguinal canals bilaterally. Chronic pancreatitis and dilated pancreatic duct, unchanged. Continue lasix, consider increasing aldactone, lactulose. IR consulted for Paracentesis, pt tolerated Scrotal US negative, swelling worse, improved after paracentesis GI DVT ppx reviewed Discussed with Dr. Stein <Josue Stein V - Last Filed: 01/16/18 00:06> Objective - Vital Signs/Intake and Output Vital Signs (last 24 hours): Temp Pulse Resp BP Pulse Ox 98.4 F 78 18 108/65 95 01/15/18 14:00 01/15/18 14:00 01/15/18 14:00 01/15/18 14:00 01/15/18 14:00 Intake and Output: 01/15/18 01/16/18 18:59 06:59 Intake Total 720 Balance 720 - Labs Labs: 01/15/18 06:20 01/15/18 06:20 PT 21.0 SECONDS (9.4-12.5) H 01/15/18 06:20 INR 1.80 (0.93-1.08) H 01/15/18 06:20 APTT 37.5 Seconds (25.1-36.5) H 01/15/18 06:20 Attending/Attestation - Attestation I have personally seen and examined this patient.: Yes I have fully participated in the care of the patient.: Yes I have reviewed all pertinent clinical information, including history, physical exam and plan: Yes Notes (Text): This is an addendum to GI consult report dictated by the Underpresser Hand.The patient was seen and examined earlier. Medical records, lab studies, imagings were reviewed. Last 24 hours events reviewed. Agreed with the above treatment plan as outlined in Underpresser Hand 's notes the with the addition of the following 01/16/18 00:05
== END 2018-01-15 18:22 | disposition home or self-care (01) | DRG 433 ==
LOC: ED 20:07 → ERH 01-09 00:02 → 5RSO 01-09 14:22
PROVIDERS: ADMIT Internal Medicine; ATTEND Internal Medicine
PROC: 30233R1 Transfusion of Nonautologous Platelets into Peripheral Vein, Percutaneous Approach (ICD-10-PCS; 2018-01-09)
PROC: 0W9G3ZX Drainage of Peritoneal Cavity, Percutaneous Approach, Diagnostic (ICD-10-PCS; principal; 2018-01-14 13:00)
DX: K74.60 Unspecified cirrhosis of liver (principal); R18.8 Other ascites; D61.818 Other pancytopenia; K76.6 Portal hypertension; K86.1 Other chronic pancreatitis; E10.65 Type 1 diabetes mellitus with hyperglycemia; B19.20 Unspecified viral hepatitis C without hepatic coma; Z91.19 Patient's noncompliance with other medical treatment and regimen; K40.90 Unilateral inguinal hernia, without obstruction or gangrene, not specified as recurrent; R16.1 Splenomegaly, not elsewhere classified; K59.00 Constipation, unspecified; N50.89 Other specified disorders of the male genital organs; F17.200 Nicotine dependence, unspecified, uncomplicated; I10 Essential (primary) hypertension; Z79.4 Long term (current) use of insulin

== ENCOUNTER 2018-03-11 18:10 | Inpatient (IN) | payer MEDICAID, OTHER ==
[2018-03-11 18:36] VITALS: BMI 25.8
[2018-03-11] MEDS ORDERED: Sodium Chloride 0.9% 1,000 ML IV STA ×2 (18:57→20:07)
[2018-03-11 19:10] LABS: BASO # 0.03 K/mm3 (0.0-2.0); BASO % 1.1 % (0.0-3.0); EOS % 1.5 % (1.5-5.0); GRAN # 1.63 (1.4-6.5); GRAN % 62.1 % (50.0-68.0); HEMOGLOBIN 14.3 g/dL (14.0-18.0); LYMPH # 0.6 (1.2-3.4); LYMPH % 22.4 % (22.0-35.0); MEAN CORPUSCULAR HGB CONC 34.5 g/dl (31.0-37.0); MONO # 0.3 (0.1-0.6); MONO % 12.9 % (1.0-6.0); PLATELET COUNT 44 10^3/uL (120.0-450.0); RBC 4.77 10^6/uL (3.5-6.1); RED CELL DISTRIBUTION WIDTH 16.8 % (11.5-14.5)
[2018-03-11 19:14] LABS: VENOUS BLOOD GAS BASE EXCESS 4.6 mmol/L (0.0-2.0); VENOUS BLOOD GAS PO2 61 mm/Hg (30-55); VENOUS BLOOD PH 7.48 (7.32-7.43)
[2018-03-11 19:30] LABS: PROTHROMBIN TIME 18.5 SECONDS (9.4-12.5)
[2018-03-11 19:31] LABS: B-TYPE NATRIURETIC PEPTIDE 122 pg/mL (0-450); INR 1.61 (0.93-1.08); PARTIAL THROMBOPLASTIN TIME 38.3 Seconds (25.1-36.5); TROPONIN I < 0.01 ng/mL
[2018-03-11 19:34] LABS: WHITE BLOOD COUNT 2.6 10^3/ul (4.5-11.0)
[2018-03-11 19:38] LABS: ALB/GLOB RATIO 0.7 (1.1-1.8); ALBUMIN 2.7 g/dL (3.0-4.8); ALT/SGPT 33 U/L (7-56); AST/SGOT 50 U/L (17-59); BLOOD UREA NITROGEN 13 mg/dL (7-21); CALCIUM 8.4 mg/dL (8.4-10.5); GFR AFRICAN-AMERICAN > 60; GFR NON-AFRICAN AMERICAN > 60
[2018-03-11] MEDS ORDERED: Lactulose 10 gm/15 ml (Rectal Use) PR ONE (19:43)
[2018-03-11 20:52] LABS: PH,URINE 8.5 (4.7-8.0); URINE APPEARANCE SL CLOUDY (CLEAR); URINE BILIRUBIN NEGATIVE (NEGATIVE); URINE BLOOD NEGATIVE (NEGATIVE); URINE GLUCOSE (UA) 500 mg/dL (NEGATIVE); URINE LEUKOCYTE ESTERASE NEGATIVE Leu/uL (NEGATIVE); URINE PROTEIN 30 mg/dL (<30 mg/dL)
[2018-03-11 21:02] LABS: BARBITURATES, UR NEGATIVE (NEGATIVE); BENZODIAZEPINES, UR NEGATIVE (NEGATIVE); OPIATES, UR NEGATIVE (NEGATIVE); PHENCYCLIDINE, UR NEGATIVE (NEGATIVE)
--- NOTE | 2018-03-11 21:17 | CP.PCM.HP ---
<Andre Andre - Last Filed: 03/12/18 03:07> History of Present Illness - History of Present Illness History of Present Illness: 62 year old male with PMH Hep C, cirrhosis, bilateral inguinal hernias, IDDM, brought into the emergency department by EMS for altered mental status. Patient has been seen multiple times for same presentation. As per EMS, no fever or vomiting. HPI and ROS limited due to patient's altered mental status. At this time patient is non-verbal but is able to follow commands. History obtained from previous charting PMH: Hepatitis C, Cirrhosis, R inguinal hernia, IDDM, noncompliance PSH: Denied in the past All: NKDA FamilyHx: Denied during last admission SocialHx: current smoker (5 cig/day for 20 years), denied current or history of alcohol or illicit drug use during last admission. Lives at home with and son. Normally able to preform ADL's. Meds: See MAR, Hx of Non-Compliance Allergies: NKDA PMD: none Present on Admission - Present on Admission Any Indicators Present on Admission: No History of Uncontrolled Diabetes: Yes Review of Systems - Review of Systems Systems not reviewed;Unavailable: Altered Mental Status Review of Systems: As per HPI Past Patient History - Infectious Disease Hx of Infectious Diseases: None - Tetanus Immunizations Tetanus Immunization: Unknown - Past Medical History & Family History Past Medical History?: Yes - Past Social History Smoking Status: Light Smoker < 10 Cigarettes Daily - CARDIAC Hx Hypertension: Yes - PULMONARY Hx Respiratory Disorders: No - NEUROLOGICAL Hx Neurological Disorder: No - HEENT Hx HEENT Problems: No - RENAL Hx Chronic Kidney Disease: No - ENDOCRINE/METABOLIC Hx Diabetes Mellitus Type 1: Yes - HEMATOLOGICAL/ONCOLOGICAL Hx Cirrhosis: Yes Hx Hepatitis C: Yes Other/Comment: Inguinal hernia - INTEGUMENTARY Hx Dermatological Problems: No - MUSCULOSKELETAL/RHEUMATOLOGICAL Hx Musculoskeletal Disorders: No Hx Falls: Yes - GASTROINTESTINAL Hx Gastrointestinal Disorders: Yes Other/Comment: Liver Disease - GENITOURINARY/GYNECOLOGICAL Hx Genitourinary Disorders: No - PSYCHIATRIC Hx Psychophysiologic Disorder: No Hx Substance Use: No - SURGICAL HISTORY Hx Surgeries: No - ANESTHESIA Hx Anesthesia: No Hx Anesthesia Reactions: No Meds Allergies/Adverse Reactions: Allergies Allergy/AdvReac Type Severity Reaction Status Date / Time No Known Allergies Allergy Verified 01/08/18 20:25 Physical Exam - Constitutional Appears: Older Than Stated Age, Chronically Ill Additional comments: Altered - Head Exam Head Exam: NORMAL INSPECTION, NORMOCEPHALIC - Eye Exam Eye Exam: EOMI, Normal appearance - ENT Exam ENT Exam: Mucous Membranes Moist - Neck Exam Neck exam: Positive for: Normal Inspection - Respiratory Exam Respiratory Exam: Clear to Auscultation Bilateral. absent: Accessory Muscle Use , Rales, Rhonchi, Wheezes - Cardiovascular Exam Cardiovascular Exam: RRR, +S1, +S2 - GI/Abdominal Exam GI & Abdominal Exam: Distended, Normal Bowel Sounds, Soft. absent: Firm, Guarding, Tenderness Additional comments: Positive fluid wave - Extremities Exam Extremities exam: Positive for: pedal edema (+2 Bilaterally ), pedal pulses present - Neurological Exam Neurological exam: Altered - Psychiatric Exam Additional comments: Flat Affect - Skin Skin Exam: Dry, Intact, Normal Color Additional comments: No Jaundice Results - Vital Signs Recent Vital Signs: Last Vital Signs Temp 97.8 F 03/11/18 18:22 Pulse 78 03/11/18 21:00 Resp 18 03/11/18 21:00 BP 131/71 03/11/18 21:00 Pulse Ox 100 03/11/18 21:00 - Labs Result Diagrams: 03/11/18 18:45 03/11/18 18:45 Labs: Laboratory Results - last 24 hr 03/11/18 03/11/18 03/11/18 18:45 18:45 18:45 WBC 2.6 L* RBC 4.77 Hgb 14.3 D Hct 41.5 L MCV 87.0 MCH 30.0 MCHC 34.5 RDW 16.8 H Plt Count 44 L* Gran % 62.1 Lymph % (Auto) 22.4 [place] % (Auto) 12.9 H Eos % (Auto) 1.5 Baso % (Auto) 1.1 Gran # 1.63 Lymph # (Auto) 0.6 L [place] # (Auto) 0.3 Eos # (Auto) 0.0 Baso # (Auto) 0.03 PT 18.5 H INR 1.61 H APTT 38.3 H pO2 VBG pH VBG pCO2 VBG HCO3 VBG Total CO2 VBG O2 Sat (Calc) VBG Base Excess VBG Potassium Sodium 134 Chloride 103 Glucose Lactate FiO2 Potassium 4.0 Carbon Dioxide 24 Anion Gap 11 BUN 13 Creatinine 0.5 L Est GFR ( Amer) > 60 Est GFR (Non-Af Amer) > 60 Random Glucose 321 H* D Calcium 8.4 Magnesium 1.6 L Total Bilirubin 4.1 H AST 50 ALT 33 Alkaline Phosphatase 149 H Ammonia Lactate Dehydrogenase 704 H Total Creatine Kinase 62 Troponin I < 0.01 NT-Pro-B Natriuret Pep 122 Total Protein 6.7 Albumin 2.7 L Globulin 4.0 Albumin/Globulin Ratio 0.7 L Venous Blood Potassium Urine Color Urine Appearance Urine pH Ur Specific [place] Urine Protein Urine Glucose (UA) Urine Ketones Urine Blood Urine Nitrate Urine Bilirubin Urine Urobilinogen Ur Leukocyte Esterase Urine RBC Urine WBC Ur Epithelial Cells Urine Opiates Screen Urine Methadone Screen Ur Barbiturates Screen Ur Phencyclidine Scrn Ur Amphetamines Screen U Benzodiazepines Scrn U Oth Cocaine Metabols U Cannabinoids Screen Alcohol, Quantitative 03/11/18 03/11/18 03/11/18 18:45 18:45 18:45 WBC RBC Hgb Hct MCV MCH MCHC RDW Plt Count Gran % Lymph % (Auto) [place] % (Auto) Eos % (Auto) Baso % (Auto) Gran # Lymph # (Auto) [place] # (Auto) Eos # (Auto) Baso # (Auto) PT INR APTT pO2 61 H VBG pH 7.48 H VBG pCO2 38.0 L VBG HCO3 28.3 H VBG Total CO2 29.5 H VBG O2 Sat (Calc) 98.1 H VBG Base Excess 4.6 H VBG Potassium 4.9 Sodium 136.0 Chloride 104.0 Glucose 339 H Lactate 2.0 FiO2 21.0 Potassium Carbon Dioxide Anion Gap BUN Creatinine Est GFR ( Amer) Est GFR (Non-Af Amer) Random Glucose Calcium Magnesium Total Bilirubin AST ALT Alkaline Phosphatase Ammonia 121 H Lactate Dehydrogenase Total Creatine Kinase Troponin I NT-Pro-B Natriuret Pep Total Protein Albumin Globulin Albumin/Globulin Ratio Venous Blood Potassium 4.9 Urine Color Urine Appearance Urine pH Ur Specific [place] Urine Protein Urine Glucose (UA) Urine Ketones Urine Blood Urine Nitrate Urine Bilirubin Urine Urobilinogen Ur Leukocyte Esterase Urine RBC Urine WBC Ur Epithelial Cells Urine Opiates Screen Urine Methadone Screen Ur Barbiturates Screen Ur Phencyclidine Scrn Ur Amphetamines Screen U Benzodiazepines Scrn U Oth Cocaine Metabols U Cannabinoids Screen Alcohol, Quantitative < 10 05/01/18 05/01/18 20:15 20:15 WBC RBC Hgb Hct MCV MCH MCHC RDW Plt Count Gran % Lymph % (Auto) [place] % (Auto) Eos % (Auto) Baso % (Auto) Gran # Lymph # (Auto) [place] # (Auto) Eos # (Auto) Baso # (Auto) PT INR APTT pO2 VBG pH VBG pCO2 VBG HCO3 VBG Total CO2 VBG O2 Sat (Calc) VBG Base Excess VBG Potassium Sodium Chloride Glucose Lactate FiO2 Potassium Carbon Dioxide Anion Gap BUN Creatinine Est GFR ( Amer) Est GFR (Non-Af Amer) Random Glucose Calcium Magnesium Total Bilirubin AST ALT Alkaline Phosphatase Ammonia Lactate Dehydrogenase Total Creatine Kinase Troponin I NT-Pro-B Natriuret Pep Total Protein Albumin Globulin Albumin/Globulin Ratio Venous Blood Potassium Urine Color yellow Urine Appearance Sl cloudy Urine pH 8.5 Ur Specific [place] 1.010 Urine Protein 30 H Urine Glucose (UA) 500 H Urine Ketones Trace H Urine Blood Negative Urine Nitrate Negative Urine Bilirubin Negative Urine Urobilinogen 2.0 H Ur Leukocyte Esterase Negative Urine RBC 2 - 5 Urine WBC 5 - 10 Ur Epithelial Cells 6 - 8 Urine Opiates Screen Negative Urine Methadone Screen Negative Ur Barbiturates Screen Negative Ur Phencyclidine Scrn Negative Ur Amphetamines Screen Negative U Benzodiazepines Scrn Negative U Oth Cocaine Metabols Negative U Cannabinoids Screen Negative Alcohol, Quantitative Assessment & Plan - Assessment and Plan (Free Text) Assessment: 62 year old male with PMH Hep C, cirrhosis, bilateral inguinal hernias, IDDM admitted for evaluation and treatment of altered mental Status Plan: AMS 2/2 to Hepatic Encephalopathy. Ammonia [address] Abd/Pelvis (Adm): Cirrhosis with splenomegaly, varices and ascites; chronic calcific pancreatitis; probable ileus, no obstruction; possibly constipation; empty bladder with Serna catheter in wall thickening ED: 200gm Lactulose, 1L Fluid Bolus x 2, Lactulose 200gm Q6H PRN until patient has 2-3 soft BM per day and then switch to PO. Monitor Ammonia Lvls GI Consult (Dr. Gunderson) Blood/Urine Culture Consider Empiric Antibiotic Consider Rifaxamin Leukopenia Afebrile Daily CBC Consider Neutropenic precautions if ANC < 1000 Scrotal Swelling US on last admission negative for torsion Consider repeat US Scrotal elevation. Hypomagnesemia 1gm MagSulfate Ordered Repeat Mg in AM Thrombocytopenia (Chronic) 2/2 Hepatic Cirrhosis No Gross bleeding Daily CBC Cont. to Monitor Hx of IDDM Low ISS until patient is not NPO then switch to Med ISS Proph Protonix SCD Case Discussed with Attending (Dr. Hill) Andre Andre, PGY-1 <Jania Hill - Last Filed: 03/12/18 06:51> Results - Vital Signs Recent Vital Signs: Last Vital Signs Temp 98.1 F 03/12/18 05:43 Pulse 72 03/12/18 05:46 Resp 18 03/12/18 05:43 BP 136/90 03/12/18 05:43 Pulse Ox 100 03/12/18 05:43 - Labs Result Diagrams: 03/12/18 05:30 03/12/18 05:30 Labs: Laboratory Results - last 24 hr 03/11/18 03/12/18 03/12/18 21:35 00:15 05:30 WBC 2.5 L* RBC 4.62 Hgb 13.9 L Hct 40.5 L MCV 87.7 MCH 30.1 MCHC 34.3 RDW 17.1 H Plt Count 30 L* Gran % 59.9 Lymph % (Auto) 21.5 L [place] % (Auto) 16.2 H Eos % (Auto) 2.0 Baso % (Auto) 0.4 Gran # 1.48 Lymph # (Auto) 0.5 L [place] # (Auto) 0.4 Eos # (Auto) 0.1 Baso # (Auto) 0.01 pO2 125 H VBG pH 7.42 VBG pCO2 37.0 L VBG HCO3 24.0 VBG Total CO2 25.1 VBG O2 Sat (Calc) 100.0 H VBG Base Excess -0.2 L VBG Potassium 3.9 Sodium 137.0 Chloride 107.0 Glucose 310 H Lactate 2.2 H FiO2 21.0 Potassium Carbon Dioxide Anion Gap BUN Creatinine Est GFR ( Amer) Est GFR (Non-Af Amer) Random Glucose Lactic Acid Calcium Magnesium Total Bilirubin AST ALT Alkaline Phosphatase Ammonia Total Protein Albumin Globulin Albumin/Globulin Ratio Lipase 74 Venous Blood Potassium 3.9 03/12/18 03/12/18 03/12/18 05:30 05:30 05:30 WBC RBC Hgb Hct MCV MCH MCHC RDW Plt Count Gran % Lymph % (Auto) [place] % (Auto) Eos % (Auto) Baso % (Auto) Gran # Lymph # (Auto) [place] # (Auto) Eos # (Auto) Baso # (Auto) pO2 VBG pH VBG pCO2 VBG HCO3 VBG Total CO2 VBG O2 Sat (Calc) VBG Base Excess VBG Potassium Sodium 140 Chloride 109 H Glucose Lactate FiO2 Potassium 3.7 Carbon Dioxide 23 Anion Gap 12 BUN 13 Creatinine 0.5 L Est GFR ( Amer) > 60 Est GFR (Non-Af Amer) > 60 Random Glucose 292 H Lactic Acid 2.0 Calcium 8.2 L Magnesium 1.9 Total Bilirubin 4.5 H AST 39 ALT 34 Alkaline Phosphatase 135 H Ammonia 49 H Total Protein 6.3 Albumin 2.4 L Globulin 3.9 Albumin/Globulin Ratio 0.6 L Lipase Venous Blood Potassium Attending/Attestation - Attestation I have personally seen and examined this patient.: Yes I have fully participated in the care of the patient.: Yes I have reviewed all pertinent clinical information: Yes Notes (Text): 03/12/18 06:50 Agree with documentation and orders.
--- NOTE | 2018-03-11 21:48 | ED PDOC ---
Arrival/HPI - General Chief Complaint: Altered Mental Status Time Seen by Provider: 03/11/18 18:18 Historian: EMS - History of Present Illness Narrative History of Present Illness (Text): 03/11/18 21:45 A 62 year old male, whose past medical history includes liver cirrhosis on lactulose at home, brought into the emergency department by EMS for altered mental status. Patient has been seen multiple times for same presentation. As per EMS, no fever or vomiting. HPI and ROS limited. Past Medical History - Provider Review Nursing Documentation Reviewed: Yes - Infectious Disease Hx of Infectious Diseases: None - Tetanus Immunization Tetanus Immunization: Unknown - Cardiac Hx Hypertension: Yes - Pulmonary Hx Respiratory Disorders: No - Neurological Hx Neurological Disorder: No - HEENT Hx HEENT Disorder: No - Renal Hx Renal Disorder: No - Endocrine/Metabolic Hx Diabetes Mellitus Type 1: Yes - Hematological/Oncological Hx Cirrhosis: Yes Hx Hepatitis C: Yes Other/Comment: Inguinal hernia - Integumentary Hx Dermatological Disorder: No - Musculoskeletal/Rheumatological Hx Musculoskeletal Disorders: No Hx Falls: Yes - Gastrointestinal Hx Gastrointestinal Disorders: Yes Other/Comment: Liver Disease - Genitourinary/Gynecological Hx Genitourinary Disorders: No - Psychiatric Hx Psychophysiologic Disorder: No Hx Substance Use: No - Anesthesia Hx Anesthesia: No Hx Anesthesia Reactions: No - Suicidal Assessment Feels Threatened In Home Enviroment: No Family/Social History - Physician Review Nursing Documentation Reviewed: Yes Family/Social History: No Known Family HX Smoking Status: Light Smoker < 10 Cigarettes Daily Hx Alcohol Use: No Hx Substance Use: No Allergies/Home Meds Allergies/Adverse Reactions: Allergies No Known Allergies Allergy (Verified 01/08/18 20:25) Review of Systems - Review of Systems Systems not reviewed;Unavailable: Altered Mental Status Physical Exam Vital Signs Reviewed: Yes Vital Signs Temp Pulse Resp BP Pulse Ox 03/11/18 21:00 78 18 131/71 100 03/11/18 19:39 82 18 126/55 L 100 03/11/18 18:22 97.8 F 85 20 98/62 L 96 Temperature: Afebrile Blood Pressure: Hypotensive Pulse: Regular Respiratory Rate: Normal Finger Stick Blood Glucose: 285 - Systems Exam Head: Present: Atraumatic, Normocephalic Pupils: Present: PERRL Extroacular Muscles: Present: EOMI Conjunctiva: Present: Normal Mouth: Present: Moist Mucous Membranes Neck: Present: Normal Range of Motion Respiratory/Chest: Present: Clear to Auscultation, Good Air Exchange. No: Respiratory Distress, Accessory Muscle Use Cardiovascular: Present: Regular Rate and Rhythm, Normal S1, S2. No: Murmurs Abdomen: Present: Normal Bowel Sounds. No: Tenderness, Distention, Peritoneal Signs Back: Present: Normal Inspection Upper Extremity: Present: Normal Inspection. No: Cyanosis, Edema Lower Extremity: Present: Normal Inspection. No: Edema Skin: Present: Warm, Dry, Normal Color. No: Rashes Psychiatric: Present: Other (Patient mumbling to answers) Medical Decision Making ED Course and Treatment: 03/11/18 21:45 Impression: A 62 year old male brought in for altered mental status Plan: -- Chest xray -- EKG -- Labs -- Blood and Urine culture -- Urinalysis -- Lactulose and IV fluids -- Reassess and disposition Progress Notes: Case discussed with hospitalist, who accepts admission to telemetry. - Lab Interpretations Lab Results: 03/11/18 18:45 03/11/18 18:45 Lab Results 03/11/18 20:15: Urine Opiates Screen Negative, Urine Methadone Screen Negative, Ur Barbiturates Screen Negative, Ur Phencyclidine Scrn Negative, Ur Amphetamines Screen Negative, U Benzodiazepines Scrn Negative, U Oth Cocaine Metabols Negative, U Cannabinoids Screen Negative 03/11/18 20:15: Urine Color yellow, Urine Appearance Sl cloudy, Urine pH 8.5, Ur Specific [place] 1.010, Urine Protein 30 H, Urine Glucose (UA) 500 H, Urine Ketones Trace H, Urine Blood Negative, Urine Nitrate Negative, Urine Bilirubin Negative, Urine Urobilinogen 2.0 H, Ur Leukocyte Esterase Negative, Urine RBC 2 - 5, Urine WBC 5 - 10, Ur Epithelial Cells 6 - 8 03/11/18 18:45: Alcohol, Quantitative < 10 03/11/18 18:45: pO2 61 H, VBG pH 7.48 H, VBG pCO2 38.0 L, VBG HCO3 28.3 H, VBG Total CO2 29.5 H, VBG O2 Sat (Calc) 98.1 H, VBG Base Excess 4.6 H, VBG Potassium 4.9, Sodium 136.0, Chloride 104.0, Glucose 339 H, Lactate 2.0, FiO2 21.0, Venous Blood Potassium 4.9 03/11/18 18:45: Ammonia 121 H 03/11/18 18:45: Sodium 134, Chloride 103, Potassium 4.0, Carbon Dioxide 24, Anion Gap 11, BUN 13, Creatinine 0.5 L, Est GFR ( Amer) > 60, Est GFR ( Non-Af Amer) > 60, Random Glucose 321 H* D, Calcium 8.4, Magnesium 1.6 L, Total Bilirubin 4.1 H, AST 50, ALT 33, Alkaline Phosphatase 149 H, Lactate Dehydrogenase 704 H, Total Creatine Kinase 62, Troponin I < 0.01, NT-Pro-B Natriuret Pep 122, Total Protein 6.7, Albumin 2.7 L, Globulin 4.0, Albumin/ Globulin Ratio 0.7 L 03/11/18 18:45: PT 18.5 H, INR 1.61 H, APTT 38.3 H 03/11/18 18:45: WBC 2.6 L*, RBC 4.77, Hgb 14.3 D, Hct 41.5 L, MCV 87.0, MCH 30.0, MCHC 34.5, RDW 16.8 H, Plt Count 44 L*, Gran % 62.1, Lymph % (Auto) 22.4, [place] % (Auto) 12.9 H, Eos % (Auto) 1.5, Baso % (Auto) 1.1, Gran # 1.63, Lymph # (Auto) 0.6 L, [place] # (Auto) 0.3, Eos # (Auto) 0.0, Baso # (Auto) 0.03 I have reviewed the lab results: Yes - RAD Interpretation Radiology Orders: 03/11/18 18:37 CHEST PORTABLE [RAD] Stat - Medication Orders Current Medication Orders: Furosemide (Lasix) 20 mg IVP DAILY KAVIN Sodium Chloride (Sodium Chloride 0.9%) 1,000 mls @ 100 mls/hr IV .Q10H KAVIN Insulin Human Regular (Humulin R Med) 0 units SC ACHS KAVIN PRN Reason: Protocol Lactulose (Generlac) 200 gm TN Q6H KAVIN Stop: 03/12/18 08:01 Discontinued Medications Sodium Chloride (Sodium Chloride 0.9%) 1,000 mls @ 999 mls/hr IV .Q1H1M STA Stop: 03/11/18 19:57 Last Admin: 03/11/18 19:40 Dose: 999 mls/hr eMAR Start Stop Document 03/11/18 19:40 AD (Rec: 03/11/18 19:40 AD [id number]) Intravenous Solution Start Date 03/11/18 Start Time 19:40 Sodium Chloride (Sodium Chloride 0.9%) 1,000 mls @ 999 mls/hr IV .Q1H1M STA Stop: 03/11/18 21:07 Lactulose (Enulose) 30 gm PO STAT STA Stop: 03/11/18 19:22 Last Admin: 03/11/18 20:38 Dose: Not Given Non-Admin Reason: Patient Refused Lactulose (Generlac) 200 gm TN ONCE ONE Stop: 03/11/18 19:44 - Scribe Statement The provider has reviewed the documentation as recorded by the Ilyaibcodey Stover Provider Scribe Attestation: All medical record entries made by the Scribe were at my direction and personally dictated by me. I have reviewed the chart and agree that the record accurately reflects my personal performance of the history, physical exam, medical decision making, and the department course for this patient. I have also personally directed, reviewed, and agree with the discharge instructions and disposition. Disposition/Present on Arrival - Present on Arrival Any Indicators Present on Arrival: Yes History of DVT/PE: No History of Uncontrolled Diabetes: Yes Urinary Catheter: No History of Decub. Ulcer: No History Surgical Site Infection Following: None - Disposition Have Diagnosis and Disposition been Completed?: Yes Diagnosis: Hyperglycemia, Hepatic encephalopathy syndrome, Increased ammonia level, Altered mental status Disposition Time: 20:15 Condition: FAIR
[2018-03-11] MEDS ORDERED: Insulin Reg-MEDIUM-Coverage SC SCH (22:00)
[2018-03-11] MEDS: Sodium Chloride 0.9% 1,000 ML IV SCH (22:00)
[2018-03-11] MEDS ORDERED: Insulin Regular 1 UNITS/0.01 ML ML ONE (22:46)
[2018-03-11] MEDS ORDERED: Lactulose 10 gm/15 ml (Rectal Use) PR PRN (23:32)
--- NOTE | 2018-03-12 00:34 | CT ---
EXAM: CT Abdomen and Pelvis Without Intravenous Contrast EXAM DATE/TIME: 03/11/2018 9:49 PM CLINICAL HISTORY: 62 years old, male; Pain; Abdominal pain; Acute; Additional info: Abdominal distention TECHNIQUE: Axial computed tomography images of the abdomen and pelvis without intravenous contrast. All CT scans at this facility use one or more dose reduction techniques, viz.: automated exposure control; ma/kV adjustment per patient size (including targeted exams where dose is matched to indication; i.e. head); or iterative reconstruction technique. Coronal and sagittal reformatted images were created and reviewed. COMPARISON: CT - ABD PELVIS W/O PO OR IV CONT 2018-01-08 22:27 FINDINGS: Lower thorax: Heart size is normal. There are coronary artery calcifications. There is minimal dependent atelectasis at the lung bases ABDOMEN: Liver: Hepatic contours are nodular. Gallbladder and bile ducts: Gallbladder is distended. Common duct is difficult to identify. Pancreas: Pancreas is atrophic with multiple coarse calcifications. There is pancreatic ductal dilatation. Spleen: The spleen is enlarged. There is a poorly defined partially calcified lesion in the spleen, unchanged. Lesion measures approximately 3 x 2 70. Adrenals: There is mild nodular thickening of the adrenals. Kidneys and ureters: Kidneys are unremarkable.There is no pelvocaliectasis. Stomach and bowel: Stomach is partially distended with air. There is mild antral and duodenal wall thickening. Rotation is normal. Small bowel is air-filled and mildly dilated. There is fold thickening. There is no small bowel obstruction Ileocecal region is not optimally demonstrated. Appendix and terminal ileum are difficult to evaluate. There is moderate stool in the colon PELVIS: Appendix: See stomach and bowel Bladder: Bladder is empty. There is bladder wall thickening. There is a Serna catheter. Reproductive: Prostate is mildly enlarged. Seminal vesicles are not optimally demonstrated. ABDOMEN and PELVIS: Intraperitoneal space: There is ascites in the abdomen and pelvis. There is no free air. Bones/joints: Bony structures are osteopenic with degenerative change. There are no acute osseous abnormalities. Soft tissues: There are bilateral inguinal hernias containing ascitic fluid. There is mesh in the abdominal wall. Vasculature: There are vascular calcifications. There are multiple varices in the upper abdomen. There are varices in the retroperitoneum. Lymph nodes: unremarkable IMPRESSION: Cirrhosis with splenomegaly, varices and ascites; chronic calcific pancreatitis; probable ileus, no obstruction; possibly constipation; empty bladder with Serna catheter in wall thickening Additional nonemergent findings as described above.
[2018-03-12 00:35] LABS: VENOUS BLOOD GAS BASE EXCESS -0.2 mmol/L (0.0-2.0); VENOUS BLOOD GAS PO2 125 mm/Hg (30-55); VENOUS BLOOD PH 7.42 (7.32-7.43)
[2018-03-12] MEDS ORDERED: Magnesium Sulfate 1 gm in D5W 1 GM/100 ML BAG IVPB ONE (01:10)
[2018-03-12] MEDS ORDERED: Lactulose 10 gm/15 ml (Rectal Use) PR SCH ×3 (02:00→19:00)
[2018-03-12 06:04] LABS: BASO # 0.01 K/mm3 (0.0-2.0); BASO % 0.4 % (0.0-3.0); EOS # 0.1 (0.0-0.7); GRAN # 1.48 (1.4-6.5); GRAN % 59.9 % (50.0-68.0); HEMOGLOBIN 13.9 g/dL (14.0-18.0); LYMPH # 0.5 (1.2-3.4); LYMPH % 21.5 % (22.0-35.0); MEAN CELL VOLUME 87.7 fl (80.0-105.0); MEAN CORPUSCULAR HEMOGLOBIN 30.1 pg (25.0-35.0); MEAN CORPUSCULAR HGB CONC 34.3 g/dl (31.0-37.0); MONO # 0.4 (0.1-0.6); MONO % 16.2 % (1.0-6.0); RBC 4.62 10^6/uL (3.5-6.1); RED CELL DISTRIBUTION WIDTH 17.1 % (11.5-14.5)
[2018-03-12 06:06] LABS: WHITE BLOOD COUNT 2.5 10^3/ul (4.5-11.0)
[2018-03-12 06:07] LABS: PLATELET COUNT 30 10^3/uL (120.0-450.0)
[2018-03-12 06:43] LABS: ALB/GLOB RATIO 0.6 (1.1-1.8); ALBUMIN 2.4 g/dL (3.0-4.8); ALT/SGPT 34 U/L (7-56); AST/SGOT 39 U/L (17-59); BLOOD UREA NITROGEN 13 mg/dL (7-21); CALCIUM 8.2 mg/dL (8.4-10.5); GFR AFRICAN-AMERICAN > 60; GFR NON-AFRICAN AMERICAN > 60
[2018-03-12] MEDS: Insulin Reg-LOW-Coverage SC SCH ×2 (08:52→13:46)
--- NOTE | 2018-03-12 08:52 | RAD ---
HISTORY: Infiltrate. Altered mental status. COMPARISON: 12/31/2017. FINDINGS: LUNGS: No active pulmonary disease. PLEURA: No significant pleural effusion identified, no pneumothorax apparent. CARDIOVASCULAR: No radiographic findings to suggest acute or significant cardiovascular disease. OSSEOUS STRUCTURES: No significant abnormalities. VISUALIZED UPPER ABDOMEN: Normal. OTHER FINDINGS: None. IMPRESSION: No active disease. No significant interval change compared to the prior examination(s).
--- NOTE | 2018-03-12 12:06 | CP.PCM.CON ---
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 He has had previous admissions for encephalopathy and ascites with paracentesis negative for SBP. Pt had a paracentesis last month with 1200cc removed, neg SBP. Pt is noncompliant with his medications and does not follow up with PCP. He states that he has had an eval at [facility] years ago, but did not follow-up. He also has not followed outpatient clinic for PCP and GI. He has had several episodes of encephalopathy and does not take outpatient lactulose. He also had EGD 8 years ago with 3 bands. He denies episodes of hematemesis, dark stools or melena prior to admission. He was supposed to be on diuretics as an oupt but is non-compliant. Pt was AMS on admission and received lactulose with 6 BM reported last night with improvement in mentation. ROS: 12-point ROS unable to obtained due to AMS PMHx: As stated in HPI SHx: denies any etoh use, 1ppd for 20+ years, denies any illicit drugs Endo Hx: EGD previouly with banding?, no colonoscopy Past Patient History - Infectious Disease Hx of Infectious Diseases: None - Tetanus Immunizations Tetanus Immunization: Unknown - Past Medical History & Family History Past Medical History?: Yes - Past Social History Smoking Status: Light Smoker < 10 Cigarettes Daily - CARDIAC Hx Hypertension: Yes - PULMONARY Hx Respiratory Disorders: No - NEUROLOGICAL Hx Neurological Disorder: No - HEENT Hx HEENT Problems: No - RENAL Hx Chronic Kidney Disease: No - ENDOCRINE/METABOLIC Hx Diabetes Mellitus Type 1: Yes - HEMATOLOGICAL/ONCOLOGICAL Hx Cirrhosis: Yes Hx Hepatitis C: Yes Other/Comment: Inguinal hernia - INTEGUMENTARY Hx Dermatological Problems: No - MUSCULOSKELETAL/RHEUMATOLOGICAL Hx Musculoskeletal Disorders: No Hx Falls: Yes - GASTROINTESTINAL Hx Gastrointestinal Disorders: Yes Other/Comment: Liver Disease - GENITOURINARY/GYNECOLOGICAL Hx Genitourinary Disorders: No - PSYCHIATRIC Hx Psychophysiologic Disorder: No Hx Substance Use: No - SURGICAL HISTORY Hx Surgeries: No - ANESTHESIA Hx Anesthesia: No Hx Anesthesia Reactions: No Meds Allergies/Adverse Reactions: Allergies Allergy/AdvReac Type Severity Reaction Status Date / Time No Known Allergies Allergy Verified 01/08/18 20:25 - Medications Medications: Current Medications Furosemide (Lasix) 20 mg IVP DAILY [facility] Last Admin: 03/12/18 09:12 Dose: 20 mg Sodium Chloride (Sodium Chloride 0.9%) 1,000 mls @ 100 mls/hr IV .Q10H [facility] Last Admin: 03/11/18 22:00 Dose: 100 mls/hr Insulin Human Regular (Humulin R Low) 0 units SC ACHS [facility] PRN Reason: Protocol Last Admin: 03/12/18 08:52 Dose: 3 units Lactulose (Enulose) 30 gm PO TID [facility] Pantoprazole Sodium (Protonix Inj) 40 mg IVP DAILY [facility] Last Admin: 03/12/18 09:11 Dose: 40 mg Rifaximin (Xifaxan) 550 mg PO BID [facility] PRN Reason: Protocol Spironolactone (Aldactone) 100 mg PO DAILY [facility] Last Admin: 03/12/18 09:11 Dose: Not Given Physical Exam - Constitutional Appears: Non-toxic, No Acute Distress, Confused, Cachectic, Chronically Ill - Head Exam Head Exam: ATRAUMATIC, NORMAL INSPECTION, NORMOCEPHALIC - Eye Exam Eye Exam: EOMI, Normal appearance, PERRL Pupil Exam: PERRL - ENT Exam ENT Exam: Mucous Membranes Dry - Neck Exam Neck exam: Positive for: Full Rom, Normal Inspection - Respiratory Exam Respiratory Exam: Clear to Auscultation Bilateral, NORMAL BREATHING PATTERN - Cardiovascular Exam Cardiovascular Exam: REGULAR RHYTHM, RRR, +S1, +S2 - GI/Abdominal Exam GI & Abdominal Exam: Normal Bowel Sounds, Soft. absent: Distended, Firm, Guarding, Organomegaly, Tenderness - Rectal Exam Rectal Exam: Deferred - Extremities Exam Extremities exam: Positive for: full ROM, pedal edema - Neurological Exam Neurological exam: Alert - Psychiatric Exam Psychiatric exam: Flat Affect - Skin Skin Exam: Dry, Intact, Normal Color, Warm Results - Vital Signs Recent Vital Signs: Last Vital Signs Temp 97.8 F 03/12/18 11:33 Pulse 81 03/12/18 11:33 Resp 18 03/12/18 11:33 BP 124/77 03/12/18 11:33 Pulse Ox 100 03/12/18 05:43 - Labs Result Diagrams: 03/12/18 05:30 03/12/18 05:30 Labs: Laboratory Results - last 24 hr 03/11/18 03/12/18 03/12/18 21:35 00:15 05:30 WBC RBC Hgb Hct MCV MCH MCHC RDW Plt Count Gran % Lymph % (Auto) [place] % (Auto) Eos % (Auto) Baso % (Auto) Gran # Lymph # (Auto) [place] # (Auto) Eos # (Auto) Baso # (Auto) pO2 125 H VBG pH 7.42 VBG pCO2 37.0 L VBG HCO3 24.0 VBG Total CO2 25.1 VBG O2 Sat (Calc) 100.0 H VBG Base Excess -0.2 L VBG Potassium 3.9 Sodium 137.0 Chloride 107.0 Glucose 310 H Lactate 2.2 H FiO2 21.0 Potassium Carbon Dioxide Anion Gap BUN Creatinine Est GFR ( Amer) Est GFR (Non-Af Amer) POC Glucose (mg/dL) Random Glucose Lactic Acid Calcium Magnesium Total Bilirubin AST ALT Alkaline Phosphatase Ammonia Total Protein Albumin Globulin Albumin/Globulin Ratio Lipase 74 Venous Blood Potassium 3.9 Blood Type O POSITIVE Antibody Screen Negative BBK History Checked Patient has bt 03/12/18 03/12/18 03/12/18 05:30 05:30 05:30 WBC 2.5 L* RBC 4.62 Hgb 13.9 L Hct 40.5 L MCV 87.7 MCH 30.1 MCHC 34.3 RDW 17.1 H Plt Count 30 L* Gran % 59.9 Lymph % (Auto) 21.5 L [place] % (Auto) 16.2 H Eos % (Auto) 2.0 Baso % (Auto) 0.4 Gran # 1.48 Lymph # (Auto) 0.5 L [place] # (Auto) 0.4 Eos # (Auto) 0.1 Baso # (Auto) 0.01 pO2 VBG pH VBG pCO2 VBG HCO3 VBG Total CO2 VBG O2 Sat (Calc) VBG Base Excess VBG Potassium Sodium 140 Chloride 109 H Glucose Lactate FiO2 Potassium 3.7 Carbon Dioxide 23 Anion Gap 12 BUN 13 Creatinine 0.5 L Est GFR ( Amer) > 60 Est GFR (Non-Af Amer) > 60 POC Glucose (mg/dL) Random Glucose 292 H Lactic Acid Calcium 8.2 L Magnesium 1.9 Total Bilirubin 4.5 H AST 39 ALT 34 Alkaline Phosphatase 135 H Ammonia 49 H Total Protein 6.3 Albumin 2.4 L Globulin 3.9 Albumin/Globulin Ratio 0.6 L Lipase Venous Blood Potassium Blood Type Antibody Screen BBK History Checked 03/12/18 03/12/18 03/12/18 05:30 07:17 11:43 WBC RBC Hgb Hct MCV MCH MCHC RDW Plt Count Gran % Lymph % (Auto) [place] % (Auto) Eos % (Auto) Baso % (Auto) Gran # Lymph # (Auto) [place] # (Auto) Eos # (Auto) Baso # (Auto) pO2 VBG pH VBG pCO2 VBG HCO3 VBG Total CO2 VBG O2 Sat (Calc) VBG Base Excess VBG Potassium Sodium Chloride Glucose Lactate FiO2 Potassium Carbon Dioxide Anion Gap BUN Creatinine Est GFR ( Amer) Est GFR (Non-Af Amer) POC Glucose (mg/dL) 263 H 262 H Random Glucose Lactic Acid 2.0 Calcium Magnesium Total Bilirubin AST ALT Alkaline Phosphatase Ammonia Total Protein Albumin Globulin Albumin/Globulin Ratio Lipase Venous Blood Potassium Blood Type Antibody Screen BBK History Checked Assessment & Plan - Assessment and Plan (Free Text) Assessment: Dilan Feng is a 62M w/ hx of HCV cirrhosis, HTN , Dm who presents with confusion. 1. Hepatic encephalopathy 2. Hx of Ascities 3. Chronic HCV 4. Decompensated Cirrhosis Plan: -MELD-Na 19 -Recommend diagnostic abd paracentesis to r/o SBO, order cell cout and cx -continue lasix 40mg daily and aldactone 100mg daily -encourage pt to continue diuretics as an oupt -HE continue laculose daily for 3-4 BM daily and add rifaxamin -needs to follow-up with GI and PCP as oupt -pt needs another EGD for variceal screening and colonoscopy for ca screening as oupt -Recommend US LE to r/o DVT -Will follow <Art Borges - Last Filed: 03/12/18 12:31> Meds - Medications Medications: Current Medications Furosemide (Lasix) 20 mg IVP DAILY [facility] Last Admin: 03/12/18 09:12 Dose: 20 mg Sodium Chloride (Sodium Chloride 0.9%) 1,000 mls @ 100 mls/hr IV .Q10H [facility] Last Admin: 03/11/18 22:00 Dose: 100 mls/hr Insulin Human Regular (Humulin R Med) 0 units SC ACHS [facility] PRN Reason: Protocol Lactulose (Enulose) 30 gm PO TID [facility] Pantoprazole Sodium (Protonix Inj) 40 mg IVP DAILY [facility] Last Admin: 03/12/18 09:11 Dose: 40 mg Rifaximin (Xifaxan) 550 mg PO BID [facility] PRN Reason: Protocol Spironolactone (Aldactone) 100 mg PO DAILY [facility] Last Admin: 03/12/18 09:11 Dose: Not Given Results - Vital Signs Recent Vital Signs: Last Vital Signs Temp 97.8 F 03/12/18 11:33 Pulse 81 03/12/18 11:33 Resp 18 03/12/18 11:33 BP 124/77 03/12/18 11:33 Pulse Ox 100 03/12/18 05:43 - Labs Result Diagrams: 03/12/18 05:30 03/12/18 05:30 Labs: Laboratory Results - last 24 hr 03/11/18 03/12/18 03/12/18 21:35 00:15 05:30 WBC RBC Hgb Hct MCV MCH MCHC RDW Plt Count Gran % Lymph % (Auto) [place] % (Auto) Eos % (Auto) Baso % (Auto) Gran # Lymph # (Auto) [place] # (Auto) Eos # (Auto) Baso # (Auto) pO2 125 H VBG pH 7.42 VBG pCO2 37.0 L VBG HCO3 24.0 VBG Total CO2 25.1 VBG O2 Sat (Calc) 100.0 H VBG Base Excess -0.2 L VBG Potassium 3.9 Sodium 137.0 Chloride 107.0 Glucose 310 H Lactate 2.2 H FiO2 21.0 Potassium Carbon Dioxide Anion Gap BUN Creatinine Est GFR ( Amer) Est GFR (Non-Af Amer) POC Glucose (mg/dL) Random Glucose Lactic Acid Calcium Magnesium Total Bilirubin AST ALT Alkaline Phosphatase Ammonia Total Protein Albumin Globulin Albumin/Globulin Ratio Lipase 74 Venous Blood Potassium 3.9 Blood Type O POSITIVE Antibody Screen Negative BBK History Checked Patient has bt 03/12/18 03/12/18 03/12/18 05:30 05:30 05:30 WBC 2.5 L* RBC 4.62 Hgb 13.9 L Hct 40.5 L MCV 87.7 MCH 30.1 MCHC 34.3 RDW 17.1 H Plt Count 30 L* Gran % 59.9 Lymph % (Auto) 21.5 L [place] % (Auto) 16.2 H Eos % (Auto) 2.0 Baso % (Auto) 0.4 Gran # 1.48 Lymph # (Auto) 0.5 L [place] # (Auto) 0.4 Eos # (Auto) 0.1 Baso # (Auto) 0.01 pO2 VBG pH VBG pCO2 VBG HCO3 VBG Total CO2 VBG O2 Sat (Calc) VBG Base Excess VBG Potassium Sodium 140 Chloride 109 H Glucose Lactate FiO2 Potassium 3.7 Carbon Dioxide 23 Anion Gap 12 BUN 13 Creatinine 0.5 L Est GFR ( Amer) > 60 Est GFR (Non-Af Amer) > 60 POC Glucose (mg/dL) Random Glucose 292 H Lactic Acid Calcium 8.2 L Magnesium 1.9 Total Bilirubin 4.5 H AST 39 ALT 34 Alkaline Phosphatase 135 H Ammonia 49 H Total Protein 6.3 Albumin 2.4 L Globulin 3.9 Albumin/Globulin Ratio 0.6 L Lipase Venous Blood Potassium Blood Type Antibody Screen BBK History Checked 03/12/18 03/12/18 03/12/18 05:30 07:17 11:43 WBC RBC Hgb Hct MCV MCH MCHC RDW Plt Count Gran % Lymph % (Auto) [place] % (Auto) Eos % (Auto) Baso % (Auto) Gran # Lymph # (Auto) [place] # (Auto) Eos # (Auto) Baso # (Auto) pO2 VBG pH VBG pCO2 VBG HCO3 VBG Total CO2 VBG O2 Sat (Calc) VBG Base Excess VBG Potassium Sodium Chloride Glucose Lactate FiO2 Potassium Carbon Dioxide Anion Gap BUN Creatinine Est GFR ( Amer) Est GFR (Non-Af Amer) POC Glucose (mg/dL) 263 H 262 H Random Glucose Lactic Acid 2.0 Calcium Magnesium Total Bilirubin AST ALT Alkaline Phosphatase Ammonia Total Protein Albumin Globulin Albumin/Globulin Ratio Lipase Venous Blood Potassium Blood Type Antibody Screen BBK History Checked Attending/Attestation - Attestation I have personally seen and examined this patient.: Yes I have fully participated in the care of the patient.: Yes I have reviewed all pertinent clinical information: Yes Notes (Text): 03/12/18 12:28 This is a 62 year old male with history of decompensated cirrhosis secondary to HCV, DM, HTN who presents to ER with AMS and found to have HE. He denies abdominal pain, nausea, vomiting, diarrhea, fever/chills, weight loss, or rectal bleeding. He is treatment naive and has not had any outpatient follow up regarding chronic liver disease. No prior endoscopic evaluation. MELD 19. Will evaluate for diagnostic paracentesis to rule out SBP. Continue lactulose po and titrate to 2 BM/day. Replete electrolytes as needed. Left lower extremity edema more than right- will benefit from Duplex LE. Patient would benefit from elective EGD for variceal screening and colonoscopy for CRC screening which can be performed as outpatient.
--- NOTE | 2018-03-12 12:42 | CP.PCM.PN ---
<Kelly Pang - Last Filed: 03/12/18 14:32> Subjective - Date & Time of Evaluation Date of Evaluation: 03/12/18 Time of Evaluation: 12:40 - Subjective Subjective: Internal Medicine Progress Note: Patient seen and examined at bedside. Per nursing no acute events overnight. Patient is still confused, oriented to person only. He moves all extremities. He is NPO pending swallow evaluation. Objective - Vital Signs/Intake and Output Vital Signs (last 24 hours): Temp Pulse Resp BP Pulse Ox 97.8 F 81 18 124/77 100 03/12/18 11:33 03/12/18 11:33 03/12/18 11:33 03/12/18 11:33 03/12/18 05:43 Intake and Output: 03/12/18 03/12/18 06:59 18:59 Intake Total 600 Output Total 600 Balance 0 - Medications Medications: Current Medications Furosemide (Lasix) 20 mg IVP DAILY [facility] Last Admin: 03/12/18 09:12 Dose: 20 mg Sodium Chloride (Sodium Chloride 0.9%) 1,000 mls @ 100 mls/hr IV .Q10H [facility] Last Admin: 03/11/18 22:00 Dose: 100 mls/hr Insulin Human Regular (Humulin R Med) 0 units SC ACHS [facility] PRN Reason: Protocol Lactulose (Enulose) 30 gm PO TID [facility] Pantoprazole Sodium (Protonix Inj) 40 mg IVP DAILY [facility] Last Admin: 03/12/18 09:11 Dose: 40 mg Rifaximin (Xifaxan) 550 mg PO BID [facility] PRN Reason: Protocol Spironolactone (Aldactone) 100 mg PO DAILY [facility] Last Admin: 03/12/18 09:11 Dose: Not Given - Labs Labs: 03/12/18 05:30 03/12/18 05:30 PT 18.5 SECONDS (9.4-12.5) H 03/11/18 18:45 INR 1.61 (0.93-1.08) H 03/11/18 18:45 APTT 38.3 Seconds (25.1-36.5) H 03/11/18 18:45 - Additional Findings Additional findings: - Constitutional Appears: Non-toxic, No Acute Distress, Confused, Cachectic, Chronically Ill - Head Exam Head Exam: ATRAUMATIC, NORMAL INSPECTION, NORMOCEPHALIC - Eye Exam Eye Exam: EOMI, Normal appearance, PERRL Pupil Exam: PERRL - ENT Exam ENT Exam: Mucous Membranes Dry - Neck Exam Neck exam: Positive for: Full Rom, Normal Inspection - Respiratory Exam Respiratory Exam: Clear to Auscultation Bilateral, NORMAL BREATHING PATTERN - Cardiovascular Exam Cardiovascular Exam: REGULAR RHYTHM, RRR, +S1, +S2 - GI/Abdominal Exam GI & Abdominal Exam: Normal Bowel Sounds, Soft. absent: Distended, Firm, Guarding, Organomegaly, Tenderness - Rectal Exam Rectal Exam: Deferred - Extremities Exam Extremities exam: Positive for: full ROM, pedal edema, moves all extremities - Neurological Exam Neurological exam: Alert - Psychiatric Exam Psychiatric exam: Flat Affect - Skin Skin Exam: Dry, Intact, Normal Color, Warm Assessment and Plan - Assessment and Plan (Free Text) Assessment: 62 year old male with PMH Hep C, cirrhosis, bilateral inguinal hernias, IDDM admitted for evaluation and treatment of Altered mental Status Plan: Altered Mental Status -[place] 2/2 to Hepatic Encephalopathy. Ammonia 121 on Admission. -Alcohol <10, Utox negative -History of Liver cirrhosis, Hep C -No focal/neuro deficits on exam -CT Abd/Pelvis (Adm): Cirrhosis with splenomegaly, varices and ascites; chronic calcific pancreatitis; probable ileus, no obstruction; possibly constipation; empty bladder with Serna catheter in wall thickening -Patient received in the ED: 200gm Lactulose VA, 1L Fluid Bolus x 2 -GI on consult, help appreciated -Blood cultures, urine cultures pending; procal is low -Monitor Ammonia Levels -Started on Rifaxamin, Lactulose 30mg PO TID -Continue Lasix daily and Aldactone 100mg daily -IV hydration -Swallow eval pending -Will keep NPO until mentation improves -IR consulted for diagnostic paracentesis, fluid studies ordered Leukopenia -Afebrile -Daily CBC -Chronic in nature Scrotal Swelling -US on last admission negative for torsion -Consider repeat US -Scrotal elevation. Hypomagnesemia -Continue to monitor Thrombocytopenia (Chronic) -Likely 2/2 Hepatic Cirrhosis -No Gross bleeding -Daily CBC -Cont. to Monitor Hx of IDDM -Medium dose ISS -Accuchecks Q6H while NPO Proph -Protonix -F/U lower extremity dopplers Plan discussed with Dr Leavitt <Jona Leavitt - Last Filed: 03/13/18 16:25> Objective - Vital Signs/Intake and Output Vital Signs (last 24 hours): Temp Pulse Resp BP Pulse Ox 98.7 F 84 20 124/79 97 03/13/18 12:00 03/13/18 12:00 03/13/18 12:00 03/13/18 12:00 03/13/18 06:00 Intake and Output: 03/13/18 03/13/18 06:59 18:59 Intake Total 1400 480 Output Total 700 Balance 700 480 - Medications Medications: Current Medications Furosemide (Lasix) 40 mg PO DAILY [facility] Insulin Human Lispro (Humalog High) 0 units SC ACHS [facility] PRN Reason: Protocol Last Admin: 03/13/18 12:32 Dose: 1 units Lactulose (Enulose) 30 gm PO TID [facility] Last Admin: 03/13/18 15:03 Dose: 30 gm Pantoprazole Sodium (Protonix Ec Tab) 40 mg PO 0600 [facility] Rifaximin (Xifaxan) 550 mg PO BID [facility] PRN Reason: Protocol Last Admin: 03/12/18 18:23 Dose: Not Given Spironolactone (Aldactone) 100 mg PO DAILY [facility] Last Admin: 03/12/18 09:11 Dose: Not Given - Labs Labs: 03/13/18 05:55 03/13/18 05:55 PT 18.5 SECONDS (9.4-12.5) H 03/11/18 18:45 INR 1.61 (0.93-1.08) H 03/11/18 18:45 APTT 38.3 Seconds (25.1-36.5) H 03/11/18 18:45 Attending/Attestation - Attestation I have personally seen and examined this patient.: Yes I have fully participated in the care of the patient.: Yes I have reviewed all pertinent clinical information, including history, physical exam and plan: Yes Notes (Text): 03/13/18 16:19 Medical record note made by the resident after discussion with my direction and input after the patient was personally seen and examined by me. I have reviewed the chart and agree that the record accurately reflects by personal performance of the history, physical exam, data review, and medical decision-making, in the course for the patient. I have also personally directed the plan of care. 62 yrs old male with PMH of Hep c ,chronic liver disease, Thrombocytopenia , Ascites is admitted with change of mental status due to hepatic encephlopathy. Patient is drowsy, unable to swallow.There is no focal deficit.We will continue rectal latulose.We will monitor Neuro check. Continue aspiration precaution. Neutropenia and thrombocytopenia is due to chronic liver disease .Patient is afebrile.There is no evidence of bleeding. Prognosis is guarded. Management plan was discussed in detail with patient. Education was provided.
[2018-03-12] MEDS: Sodium Chloride 0.9% 1,000 ML IV SCH (12:44)
--- NOTE | 2018-03-12 16:28 | US ---
HISTORY: Leg pain and swelling. Evaluate for DVT PHYSICIAN(S): Harman Newell MD. TECHNIQUE: Duplex sonography and color-flow Doppler with graded compression were used to evaluate the deep venous systems of both lower extremities. FINDINGS: The visualized deep venous systems of both lower extremities are sonographically normal and compressible. Normal wave forms and augmentation are seen. There is no sonographic evidence for deep venous thrombosis in the visualized segments of both lower extremities. IMPRESSION: No sonographic evidence for deep venous thrombosis in the visualized segments of both lower extremities.
[2018-03-12] MEDS: Insulin Reg-MEDIUM-Coverage SC SCH ×2 (16:50→23:00)
[2018-03-12] MEDS: Dextrose 5%/0.45% NS 1,000 ML IV SCH (18:22)
--- NOTE | 2018-03-12 19:28 | CARD ---
APPROVED REPORT EKG Measurement Heart [id number] [place] [id number] <Conclusion> Normal sinus rhythm T wave abnormality, consider anterior ischemia Prolonged QT Abnormal ECG
[2018-03-13] MEDS: Dextrose 5%/0.45% NS 1,000 ML IV SCH (04:33)
[2018-03-13 06:10] LABS: BASO # 0.02 K/mm3 (0.0-2.0); BASO % 0.8 % (0.0-3.0); EOS % 1.7 % (1.5-5.0); GRAN # 1.39 (1.4-6.5); GRAN % 57.9 % (50.0-68.0); HEMOGLOBIN 12.5 g/dL (14.0-18.0); LYMPH # 0.7 (1.2-3.4); LYMPH % 27.1 % (22.0-35.0); MEAN CELL VOLUME 88.6 fl (80.0-105.0); MEAN CORPUSCULAR HEMOGLOBIN 29.1 pg (25.0-35.0); MEAN CORPUSCULAR HGB CONC 32.9 g/dl (31.0-37.0); MEAN PLATELET VOLUME 9.6 fl (7.0-11.0); MONO # 0.3 (0.1-0.6); MONO % 12.5 % (1.0-6.0); RBC 4.29 10^6/uL (3.5-6.1); RED CELL DISTRIBUTION WIDTH 16.9 % (11.5-14.5)
[2018-03-13 06:16] LABS: WHITE BLOOD COUNT 2.4 10^3/ul (4.5-11.0)
[2018-03-13] MEDS: Insulin Reg-MEDIUM-Coverage SC SCH (07:42)
[2018-03-13 07:53] LABS: ALB/GLOB RATIO 0.6 (1.1-1.8); ALT/SGPT 34 U/L (7-56); AST/SGOT 31 U/L (17-59); BLOOD UREA NITROGEN 14 mg/dL (7-21); CALCIUM 7.6 mg/dL (8.4-10.5); GFR AFRICAN-AMERICAN > 60; GFR NON-AFRICAN AMERICAN > 60
--- NOTE | 2018-03-13 09:21 | CP.PCM.PN ---
<Susan Gibbons - Last Filed: 03/13/18 09:42> Subjective - Date & Time of Evaluation Date of Evaluation: 03/13/18 Time of Evaluation: 09:11 - Subjective Subjective: Gastroenterology Fellow/PGY5 Progress Note Patient is awake and alert. Appropriate response to questioning and following command. States he is hungry. Nursing notes three bowel movements yesterday. Objective - Vital Signs/Intake and Output Vital Signs (last 24 hours): Temp Pulse Resp BP Pulse Ox 98.3 F 78 19 108/57 L 97 03/13/18 06:00 03/13/18 06:00 03/13/18 06:00 03/13/18 06:00 03/13/18 06:00 Intake and Output: 03/13/18 03/13/18 06:59 18:59 Intake Total 1400 Output Total 700 Balance 700 - Medications Medications: Current Medications Furosemide (Lasix) 20 mg IVP DAILY [facility] Last Admin: 03/12/18 09:12 Dose: 20 mg Insulin Human Lispro (Humalog High) 0 units SC ACHS [facility] PRN Reason: Protocol Lactulose (Enulose) 30 gm PO TID [facility] Pantoprazole Sodium (Protonix Inj) 40 mg IVP DAILY [facility] Last Admin: 03/12/18 09:11 Dose: 40 mg Rifaximin (Xifaxan) 550 mg PO BID [facility] PRN Reason: Protocol Last Admin: 03/12/18 18:23 Dose: Not Given Spironolactone (Aldactone) 100 mg PO DAILY [facility] Last Admin: 03/12/18 09:11 Dose: Not Given - Labs Labs: 03/13/18 05:55 03/13/18 05:55 PT 18.5 SECONDS (9.4-12.5) H 03/11/18 18:45 INR 1.61 (0.93-1.08) H 03/11/18 18:45 APTT 38.3 Seconds (25.1-36.5) H 03/11/18 18:45 - Constitutional Appears: Non-toxic, No Acute Distress - Head Exam Head Exam: ATRAUMATIC, NORMOCEPHALIC - Eye Exam Eye Exam: EOMI, PERRL, Scleral icterus Pupil Exam: PERRL. absent: Miosis, Mydriatic - ENT Exam ENT Exam: Mucous Membranes Moist, Normal Oropharynx - Neck Exam Neck Exam: Full ROM, Normal Inspection - Respiratory Exam Respiratory Exam: Clear to Ausculation Bilateral. absent: Rales, Rhonchi, Wheezes - Cardiovascular Exam Cardiovascular Exam: RRR, +S1, +S2. absent: Gallop, Rubs - GI/Abdominal Exam GI & Abdominal Exam: Soft, Normal Bowel Sounds, Organomegaly. absent: Distended , Firm, Guarding, Rigid, Tenderness - Extremities Exam Extremities Exam: Normal Inspection, Pedal Edema - Neurological Exam Neurological Exam: Alert, Awake - Psychiatric Exam Psychiatric exam: Normal Affect, Normal Mood - Skin Skin Exam: Dry, Intact, Normal Color, Warm Assessment and Plan - Assessment and Plan (Free Text) Assessment: 62yo man with PMH Decompensated Hepatitis C (viral load not detected 06/2017) cirrhosis due to Hepatic encephalopathy, ascites, and esophageal varices, HTN, and DM presenting with confusion. Active treatment of decompensated HCV cirrhosis 2/2 hepatic encephalopathy and ascites. EGD endorsed 8 years ago to have esophageal varices s/p banding. Plan: -03/11/18 MELD-Na 19 -mentation improved -continue lactulose TID, titrate to goal 3 BMs daily -continue rifaxamin 550mg BID -pending diagnostic paracentesis to rule out SBP -on Lasix 20mg IV daily and spironolactone 100mg daily -recommend increase Lasix to 40mg daily -low sodium, high protein diabetic diet -MELD labs daily -B/L LE Doppler- no DVT -will benefit from outpatient EGD for variceal screening and colonoscopy for CRC screening - <Jair Fernández - Last Filed: 03/13/18 12:22> Objective - Vital Signs/Intake and Output Vital Signs (last 24 hours): Temp Pulse Resp BP Pulse Ox 98.3 F 78 19 110/58 L 97 03/13/18 06:00 03/13/18 10:00 03/13/18 06:00 03/13/18 09:28 03/13/18 06:00 Intake and Output: 03/13/18 03/13/18 06:59 18:59 Intake Total 1400 Output Total 700 Balance 700 - Medications Medications: Current Medications Furosemide (Lasix) 40 mg PO DAILY [facility] Insulin Human Lispro (Humalog High) 0 units SC ACHS [facility] PRN Reason: Protocol Lactulose (Enulose) 30 gm PO TID [facility] Last Admin: 03/13/18 09:29 Dose: 30 gm Pantoprazole Sodium (Protonix Ec Tab) 40 mg PO 0600 [facility] Rifaximin (Xifaxan) 550 mg PO BID [facility] PRN Reason: Protocol Last Admin: 03/12/18 18:23 Dose: Not Given Spironolactone (Aldactone) 100 mg PO DAILY [facility] Last Admin: 03/12/18 09:11 Dose: Not Given - Labs Labs: 03/13/18 05:55 03/13/18 05:55 PT 18.5 SECONDS (9.4-12.5) H 03/11/18 18:45 INR 1.61 (0.93-1.08) H 03/11/18 18:45 APTT 38.3 Seconds (25.1-36.5) H 03/11/18 18:45 Attending/Attestation - Attestation I have personally seen and examined this patient.: Yes I have fully participated in the care of the patient.: Yes I have reviewed all pertinent clinical information, including history, physical exam and plan: Yes Notes (Text): 03/13/18 12:21 62 year old male with h/o cirrhosis HE, and ascites. Improving. Continue lactulose. Rec paracentesis. Diet as tolerated.
--- NOTE | 2018-03-13 10:44 | CP.PCM.PN ---
<Kelly Pang - Last Filed: 03/13/18 11:54> Subjective - Date & Time of Evaluation Date of Evaluation: 03/13/18 Time of Evaluation: 10:43 - Subjective Subjective: Internal Medicine Progress Note: Patient seen and examined at bedside. Per nursing no acute events overnight. Patient more awake and alert today. States that he is hungry. He had three bowel movements last night. Offering no other complaints. Unclear whether patient is complaint with medications at home. He denies headaches, dizziness, cp, palpitations, sob, abdominal pain, urinary symptoms. Objective - Vital Signs/Intake and Output Vital Signs (last 24 hours): Temp Pulse Resp BP Pulse Ox 98.3 F 78 19 110/58 L 97 03/13/18 06:00 03/13/18 06:00 03/13/18 06:00 03/13/18 09:28 03/13/18 06:00 Intake and Output: 03/13/18 03/13/18 06:59 18:59 Intake Total 1400 Output Total 700 Balance 700 - Medications Medications: Current Medications Furosemide (Lasix) 20 mg IVP DAILY [facility] Last Admin: 03/13/18 09:28 Dose: 20 mg Insulin Human Lispro (Humalog High) 0 units SC ACHS [facility] PRN Reason: Protocol Lactulose (Enulose) 30 gm PO TID [facility] Last Admin: 03/13/18 09:29 Dose: 30 gm Pantoprazole Sodium (Protonix Inj) 40 mg IVP DAILY [facility] Last Admin: 03/13/18 09:28 Dose: 40 mg Rifaximin (Xifaxan) 550 mg PO BID [facility] PRN Reason: Protocol Last Admin: 03/12/18 18:23 Dose: Not Given Spironolactone (Aldactone) 100 mg PO DAILY [facility] Last Admin: 03/12/18 09:11 Dose: Not Given - Labs Labs: 03/13/18 05:55 03/13/18 05:55 PT 18.5 SECONDS (9.4-12.5) H 03/11/18 18:45 INR 1.61 (0.93-1.08) H 03/11/18 18:45 APTT 38.3 Seconds (25.1-36.5) H 03/11/18 18:45 - Constitutional Appears: Non-toxic, No Acute Distress, Chronically Ill - Head Exam Head Exam: ATRAUMATIC, NORMAL INSPECTION, NORMOCEPHALIC - Eye Exam Eye Exam: EOMI, Normal appearance - ENT Exam ENT Exam: Mucous Membranes Moist - Neck Exam Neck Exam: Full ROM - Respiratory Exam Respiratory Exam: Clear to Ausculation Bilateral, NORMAL BREATHING PATTERN. absent: Rales, Rhonchi, Wheezes - Cardiovascular Exam Cardiovascular Exam: REGULAR RHYTHM, +S1, +S2 - GI/Abdominal Exam GI & Abdominal Exam: Distended, Soft, Normal Bowel Sounds. absent: Guarding, Rigid, Tenderness - Extremities Exam Extremities Exam: Normal Inspection - Neurological Exam Neurological Exam: Alert, Awake, Oriented x3 - Psychiatric Exam Psychiatric exam: Normal Affect, Normal Mood - Skin Skin Exam: Normal Color, Warm Assessment and Plan - Assessment and Plan (Free Text) Assessment: 62 year old male with PMH Hep C, cirrhosis, bilateral inguinal hernias, IDDM admitted for evaluation and treatment of Altered mental Status Plan: Altered Mental Status -[facility] 2/2 to Hepatic Encephalopathy. Ammonia 121 on Admission. -Alcohol <10, Utox negative -History of Liver cirrhosis, Hep C -No focal/neuro deficits on exam -CT Abd/Pelvis (Adm): Cirrhosis with splenomegaly, varices and ascites; chronic calcific pancreatitis; probable ileus, no obstruction; possibly constipation; empty bladder with Serna catheter in wall thickening -Patient received in the ED: 200gm Lactulose WI, 1L Fluid Bolus x 2 -Ammonia is trending down, patient mentation improved after lactulose -Blood cultures showing no growth x 24 hours, urine cultures pending; procal is low -Started on Rifaxamin, Lactulose 30mg PO TID -Continue Lasix 40mg daily and Aldactone 100mg daily -GI on consult, help appreciated -IR consulted for diagnostic paracentesis, fluid studies ordered -Physical Therapy evaluation ordered -Will discontinue telemetry Leukopenia -Afebrile -Daily CBC -Chronic in nature Scrotal Swelling -US on last admission negative for torsion -Consider repeat US -Scrotal elevation. Hypomagnesemia -Continue to monitor Thrombocytopenia (Chronic) -Likely 2/2 Hepatic Cirrhosis -No Gross bleeding -Daily CBC -Cont. to Monitor Hx of IDDM -High dose ISS -Accuchecks ACHS -Serum glucose 369 today -Will discontinue fluids -If elevated blood sugars persist, will change insulin regimen Proph -Protonix -Lower extremity dopplers negative for DVT Plan discussed with Dr Leavitt <Jona Leavitt - Last Filed: 03/13/18 16:28> Objective - Vital Signs/Intake and Output Vital Signs (last 24 hours): Temp Pulse Resp BP Pulse Ox 98.7 F 84 20 124/79 97 03/13/18 12:00 03/13/18 12:00 03/13/18 12:00 03/13/18 12:00 03/13/18 06:00 Intake and Output: 03/13/18 03/13/18 06:59 18:59 Intake Total 1400 480 Output Total 700 Balance 700 480 - Medications Medications: Current Medications Furosemide (Lasix) 40 mg PO DAILY [facility] Insulin Human Lispro (Humalog High) 0 units SC ACHS [facility] PRN Reason: Protocol Last Admin: 03/13/18 12:32 Dose: 1 units Lactulose (Enulose) 30 gm PO TID [facility] Last Admin: 03/13/18 15:03 Dose: 30 gm Pantoprazole Sodium (Protonix Ec Tab) 40 mg PO 0600 [facility] Rifaximin (Xifaxan) 550 mg PO BID [facility] PRN Reason: Protocol Last Admin: 03/12/18 18:23 Dose: Not Given Spironolactone (Aldactone) 100 mg PO DAILY [facility] Last Admin: 03/12/18 09:11 Dose: Not Given - Labs Labs: 03/13/18 05:55 03/13/18 05:55 PT 18.5 SECONDS (9.4-12.5) H 03/11/18 18:45 INR 1.61 (0.93-1.08) H 03/11/18 18:45 APTT 38.3 Seconds (25.1-36.5) H 03/11/18 18:45 Attending/Attestation - Attestation I have personally seen and examined this patient.: Yes I have fully participated in the care of the patient.: Yes I have reviewed all pertinent clinical information, including history, physical exam and plan: Yes Notes (Text): 03/13/18 16:26 Medical record note made by the resident after discussion with my direction and input after the patient was personally seen and examined by me. I have reviewed the chart and agree that the record accurately reflects by personal performance of the history, physical exam, data review, and medical decision-making, in the course for the patient. I have also personally directed the plan of care. 62 yrs old male with PMH of Hep c ,chronic liver disease, Thrombocytopenia , Ascites is admitted with change of mental status due to hepatic encephlopathy. Patient is alert, awake today, we will change to oral lactulose. Neutropenia and thrombocytopenia is due to chronic liver disease .Patient is afebrile.There is no evidence of bleeding. Prognosis is guarded. Management plan was discussed in detail with patient. Education was provided.
[2018-03-13] MEDS: Insulin Lispro (HUMAlog) HIGH Coverage SC SCH ×3 (12:32→23:47)
[2018-03-13] MEDS ORDERED: Metoprolol 1 mg/ml Inj IVP ONE (18:08)
[2018-03-14] MEDS: Pantoprazole 40 mg EC Tab PO SCH (05:55)
[2018-03-14 07:31] LABS: BASO # 0.02 K/mm3 (0.0-2.0); BASO % 0.6 % (0.0-3.0); EOS # 0.1 (0.0-0.7); EOS % 2.8 % (1.5-5.0); GRAN # 1.83 (1.4-6.5); GRAN % 56.7 % (50.0-68.0); HEMOGLOBIN 12.8 g/dL (14.0-18.0); LYMPH # 0.7 (1.2-3.4); LYMPH % 22.6 % (22.0-35.0); MEAN CELL VOLUME 88.2 fl (80.0-105.0); MEAN CORPUSCULAR HGB CONC 32.9 g/dl (31.0-37.0); MONO # 0.6 (0.1-0.6); MONO % 17.3 % (1.0-6.0); PLATELET COUNT 34 10^3/uL (120.0-450.0); RBC 4.41 10^6/uL (3.5-6.1); RED CELL DISTRIBUTION WIDTH 16.6 % (11.5-14.5); WHITE BLOOD COUNT 3.2 10^3/ul (4.5-11.0)
[2018-03-14 07:43] LABS: INR 1.78 (0.93-1.08); PROTHROMBIN TIME 20.7 SECONDS (9.4-12.5)
[2018-03-14 07:45] LABS: ALB/GLOB RATIO 0.6 (1.1-1.8); ALBUMIN 2.3 g/dL (3.0-4.8); ALT/SGPT 30 U/L (7-56); AST/SGOT 39 U/L (17-59); BLOOD UREA NITROGEN 12 mg/dL (7-21); CALCIUM 7.8 mg/dL (8.4-10.5); GFR AFRICAN-AMERICAN > 60; GFR NON-AFRICAN AMERICAN > 60
[2018-03-14] MEDS: Insulin Lispro (HUMAlog) HIGH Coverage SC SCH ×4 (08:25→22:06)
[2018-03-14] MEDS ORDERED: Potassium Chloride 20 mEq ER Tab PO STA (08:56)
--- NOTE | 2018-03-14 10:27 | CP.PCM.PN ---
<Susan Gibbons - Last Filed: 03/14/18 10:29> Subjective - Date & Time of Evaluation Date of Evaluation: 03/14/18 Time of Evaluation: 10:24 - Subjective Subjective: Gastroenterology Fellow/PGY5 Progress Note Patient is awake, alert, and oriented to person, place, and time. Admits to three bowel movements yesterday. No acute events overnight. Objective - Vital Signs/Intake and Output Vital Signs (last 24 hours): Temp Pulse Resp BP Pulse Ox 98.2 F 82 18 117/66 96 03/14/18 07:00 03/14/18 07:00 03/14/18 07:00 03/14/18 07:00 03/14/18 07:00 Intake and Output: 03/14/18 03/14/18 06:59 18:59 Intake Total 720 Balance 720 - Medications Medications: Current Medications Furosemide (Lasix) 40 mg PO DAILY [facility] Insulin Human Lispro (Humalog High) 0 units SC ACHS [facility] PRN Reason: Protocol Last Admin: 03/14/18 08:25 Dose: 7 units Insulin Lispro Protam/Lispro Human (Humalog Mix 75/25) 15 units SC BIDAC [facility] Lactulose (Enulose) 30 gm PO TID [facility] Last Admin: 03/13/18 17:38 Dose: 30 gm Pantoprazole Sodium (Protonix Ec Tab) 40 mg PO 0600 [facility] Last Admin: 03/14/18 05:55 Dose: 40 mg Rifaximin (Xifaxan) 550 mg PO BID [facility] PRN Reason: Protocol Last Admin: 03/13/18 17:39 Dose: 550 mg Spironolactone (Aldactone) 100 mg PO DAILY [facility] Last Admin: 03/12/18 09:11 Dose: Not Given - Labs Labs: 03/14/18 07:00 03/14/18 07:00 PT 20.7 SECONDS (9.4-12.5) H 03/14/18 07:00 INR 1.78 (0.93-1.08) H 03/14/18 07:00 APTT 38.3 Seconds (25.1-36.5) H 03/11/18 18:45 - Constitutional Appears: Non-toxic, No Acute Distress - Head Exam Head Exam: ATRAUMATIC, NORMOCEPHALIC - Eye Exam Eye Exam: EOMI, PERRL. absent: Scleral icterus Pupil Exam: PERRL. absent: Miosis, Mydriatic - ENT Exam ENT Exam: Mucous Membranes Moist, Normal Oropharynx - Neck Exam Neck Exam: Full ROM, Normal Inspection - Respiratory Exam Respiratory Exam: Clear to Ausculation Bilateral. absent: Rales, Rhonchi, Wheezes - Cardiovascular Exam Cardiovascular Exam: RRR, +S1, +S2. absent: Gallop, Rubs - GI/Abdominal Exam GI & Abdominal Exam: Soft, Normal Bowel Sounds. absent: Distended, Firm, Guarding, Rigid, Tenderness, Organomegaly, Rebound - Extremities Exam Extremities Exam: Normal Inspection. absent: Pedal Edema - Neurological Exam Neurological Exam: Alert, Awake, Oriented x3 - Psychiatric Exam Psychiatric exam: Normal Affect, Normal Mood - Skin Skin Exam: Dry, Intact, Normal Color, Warm Assessment and Plan - Assessment and Plan (Free Text) Assessment: 62yo man with PMH Decompensated Hepatitis C (viral load not detected 06/2017) cirrhosis due to Hepatic encephalopathy, ascites, and esophageal varices, HTN, and DM presenting with confusion. Active treatment of decompensated HCV cirrhosis 2/2 hepatic encephalopathy and ascites. EGD endorsed 8 years ago to have esophageal varices s/p banding. Plan: -03/14/18 MELD-Na 21 -continue lactulose TID, titrate to goal 3 BMs daily -continue rifaxamin 550mg BID -continue Lasix 40mg daily and spironolactone 100mg daily -low sodium, high protein diabetic diet -counseled on medication compliance -will benefit from outpatient EGD for variceal screening and colonoscopy for CRC screening -follow up in [facility] GI/hepatology clinic <Miguelangel Gunderson Y - Last Filed: 03/14/18 11:53> Objective - Vital Signs/Intake and Output Vital Signs (last 24 hours): Temp Pulse Resp BP Pulse Ox 98.2 F 82 18 117/66 96 03/14/18 07:00 03/14/18 07:00 03/14/18 07:00 03/14/18 10:56 03/14/18 07:00 Intake and Output: 03/14/18 03/14/18 06:59 18:59 Intake Total 720 Balance 720 - Medications Medications: Current Medications Furosemide (Lasix) 40 mg PO DAILY [facility] Last Admin: 03/14/18 10:56 Dose: 40 mg Insulin Human Lispro (Humalog High) 0 units SC ACHS [facility] PRN Reason: Protocol Last Admin: 03/14/18 08:25 Dose: 7 units Insulin Lispro Protam/Lispro Human (Humalog Mix 75/25) 15 units SC BIDAC [facility] Lactulose (Enulose) 30 gm PO TID [facility] Last Admin: 03/13/18 17:38 Dose: 30 gm Pantoprazole Sodium (Protonix Ec Tab) 40 mg PO 0600 [facility] Last Admin: 03/14/18 05:55 Dose: 40 mg Rifaximin (Xifaxan) 550 mg PO BID [facility] PRN Reason: Protocol Last Admin: 03/14/18 10:59 Dose: 550 mg Spironolactone (Aldactone) 100 mg PO DAILY [facility] Last Admin: 03/14/18 10:51 Dose: 100 mg - Labs Labs: 03/14/18 07:00 03/14/18 07:00 PT 20.7 SECONDS (9.4-12.5) H 03/14/18 07:00 INR 1.78 (0.93-1.08) H 03/14/18 07:00 APTT 38.3 Seconds (25.1-36.5) H 03/11/18 18:45 Attending/Attestation - Attestation I have personally seen and examined this patient.: Yes I have fully participated in the care of the patient.: Yes I have reviewed all pertinent clinical information, including history, physical exam and plan: Yes Notes (Text): 03/14/18 11:49 I have seen and examined patient with GI fellow. No acute events overnight, 3 bowel movements reported over past 24 hours. He is in good spirits, denies abdominal pain, nausea, vomiting. Remains alert and oriented x 3, tolerating PO diet without difficulty. Review of vitals from today are normal. HCV decompensated cirrhosis Altered mental status, resolved - hepatic encephalopathy HTN / DM - Low sodium diet as tolerated - Continue with lactulose and xifaxan for treatment of HE - Continue with diuretic regimen, monitor electrolytes - Patient would benefit from outpatient follow up including endoscopic evaluation for screening and variceal surveillance - No further planned GI intervention, will sign off case. Please reconsult as necessary, thank you.
--- NOTE | 2018-03-14 13:58 | CP.PCM.CON ---
<Karie Russ - Last Filed: 03/14/18 13:53> History of Present Illness - History of Present Illness History of Present Illness: 62 y/o male with PMHx of IDDM, Hepatitis C, cirrhosis and B/L inguinal hernia seen at bedside after consultation for left 3rd toe laceration. Pt states he stubbed the toe and noticed some bleeding. Denies having any pain in the toe. Denies seeing any pus come from the toe. Denies any other pedal complaints. Denies F/C/N/V/CP/SOB Review of Systems - Review of Systems All systems: reviewed and no additional remarkable complaints except (per HPI) Past Patient History - Infectious Disease Hx of Infectious Diseases: None - Tetanus Immunizations Tetanus Immunization: Unknown - Past Medical History & Family History Past Medical History?: Yes - Past Social History Smoking Status: Light Smoker < 10 Cigarettes Daily - CARDIAC Hx Hypertension: Yes - PULMONARY Hx Respiratory Disorders: No - NEUROLOGICAL Hx Neurological Disorder: No - HEENT Hx HEENT Problems: No - RENAL Hx Chronic Kidney Disease: No - ENDOCRINE/METABOLIC Hx Diabetes Mellitus Type 1: Yes - HEMATOLOGICAL/ONCOLOGICAL Hx Cirrhosis: Yes Hx Hepatitis C: Yes Other/Comment: Inguinal hernia - INTEGUMENTARY Hx Dermatological Problems: No - MUSCULOSKELETAL/RHEUMATOLOGICAL Hx Musculoskeletal Disorders: No Hx Falls: Yes - GASTROINTESTINAL Hx Gastrointestinal Disorders: Yes Other/Comment: Liver Disease - GENITOURINARY/GYNECOLOGICAL Hx Genitourinary Disorders: No - PSYCHIATRIC Hx Psychophysiologic Disorder: No Hx Substance Use: No - SURGICAL HISTORY Hx Surgeries: No - ANESTHESIA Hx Anesthesia: No Hx Anesthesia Reactions: No Meds Home Medications: Home Medication List Medication Instructions Recorded Confirmed Type Furosemide [Lasix] 40 mg PO DAILY #30 tablet 03/14/18 Rx Lactulose [Enulose] 30 gm PO TID #90 udc 03/14/18 Rx Pantoprazole [Protonix EC Tab] 40 mg PO 0600 #30 ect 03/14/18 Rx Spironolactone [Aldactone] 100 mg PO DAILY #30 tablet 03/14/18 Rx rifAXIMin [Xifaxan] 550 mg PO BID #60 tab 03/14/18 Rx Allergies/Adverse Reactions: Allergies Allergy/AdvReac Type Severity Reaction Status Date / Time No Known Allergies Allergy Verified 01/08/18 20:25 - Medications Medications: Current Medications Furosemide (Lasix) 40 mg PO DAILY [facility] Last Admin: 03/14/18 10:56 Dose: 40 mg Insulin Human Lispro (Humalog High) 0 units SC ACHS [facility] PRN Reason: Protocol Last Admin: 03/14/18 08:25 Dose: 7 units Insulin Lispro Protam/Lispro Human (Humalog Mix 75/25) 15 units SC BIDAC [facility] Lactulose (Enulose) 30 gm PO TID [facility] Last Admin: 03/13/18 17:38 Dose: 30 gm Pantoprazole Sodium (Protonix Ec Tab) 40 mg PO 0600 [facility] Last Admin: 03/14/18 05:55 Dose: 40 mg Rifaximin (Xifaxan) 550 mg PO BID [facility] PRN Reason: Protocol Last Admin: 03/14/18 10:59 Dose: 550 mg Spironolactone (Aldactone) 100 mg PO DAILY [facility] Last Admin: 03/14/18 10:51 Dose: 100 mg Physical Exam - Constitutional Appears: Well, Non-toxic, No Acute Distress - Extremities Exam Additional comments: Left lower extremity focused: Vasc: DP/PT pulses palpable 2/4. Temp gradient warm to cool. CFT < 3 sec to all digits. No pedal edema Derm: Superficial laceration noted to distal aspect of L 3rd toe with no evidence of nail involvement or onycholysis. No evidence of deep tissue involvement. Mild sanguinous drainage elicited. No surrounding erythema or cellulitis, no fluctuance Neuro: Protective sensation grossly diminished Ortho: no tenderness to palpation of L foot 3rd toe - Neurological Exam Neurological exam: Alert - Psychiatric Exam Psychiatric exam: Normal Affect, Normal Mood Results - Vital Signs Recent Vital Signs: Last Vital Signs Temp 98.2 F 03/14/18 07:00 Pulse 82 03/14/18 07:00 Resp 18 03/14/18 07:00 BP 117/66 03/14/18 10:56 Pulse Ox 96 03/14/18 07:00 - Labs Result Diagrams: 03/14/18 07:00 03/14/18 07:00 Labs: Laboratory Results - last 24 hr 03/13/18 03/13/18 03/13/18 16:08 19:47 21:06 WBC RBC Hgb Hct MCV MCH MCHC RDW Plt Count Gran % Lymph % (Auto) Faulkner % (Auto) Eos % (Auto) Baso % (Auto) Gran # Lymph # (Auto) Faulkner # (Auto) Eos # (Auto) Baso # (Auto) PT INR Sodium Potassium Chloride Carbon Dioxide Anion Gap BUN Creatinine Est GFR ( Amer) Est GFR (Non-Af Amer) POC Glucose (mg/dL) 430 H* 342 H 274 H Random Glucose Calcium Magnesium Total Bilirubin AST ALT Alkaline Phosphatase Ammonia Total Protein Albumin Globulin Albumin/Globulin Ratio 03/14/18 03/14/18 03/14/18 06:55 07:00 07:00 WBC 3.2 L D RBC 4.41 Hgb 12.8 L Hct 38.9 L MCV 88.2 MCH 29.0 MCHC 32.9 RDW 16.6 H Plt Count 34 L* Gran % 56.7 Lymph % (Auto) 22.6 Faulkner % (Auto) 17.3 H Eos % (Auto) 2.8 Baso % (Auto) 0.6 Gran # 1.83 Lymph # (Auto) 0.7 L Faulkner # (Auto) 0.6 Eos # (Auto) 0.1 Baso # (Auto) 0.02 PT INR Sodium 135 Potassium 3.5 L Chloride 104 Carbon Dioxide 26 Anion Gap 9 L BUN 12 Creatinine 0.5 L Est GFR ( Amer) > 60 Est GFR (Non-Af Amer) > 60 POC Glucose (mg/dL) 271 H Random Glucose 312 H* Calcium 7.8 L Magnesium 1.7 Total Bilirubin 4.6 H AST 39 ALT 30 Alkaline Phosphatase 125 Ammonia Total Protein 5.9 Albumin 2.3 L Globulin 3.6 Albumin/Globulin Ratio 0.6 L 03/14/18 03/14/18 03/14/18 07:00 07:00 11:13 WBC RBC Hgb Hct MCV MCH MCHC RDW Plt Count Gran % Lymph % (Auto) Faulkner % (Auto) Eos % (Auto) Baso % (Auto) Gran # Lymph # (Auto) Faulkner # (Auto) Eos # (Auto) Baso # (Auto) PT 20.7 H INR 1.78 H Sodium Potassium Chloride Carbon Dioxide Anion Gap BUN Creatinine Est GFR ( Amer) Est GFR (Non-Af Amer) POC Glucose (mg/dL) 292 H Random Glucose Calcium Magnesium Total Bilirubin AST ALT Alkaline Phosphatase Ammonia 19 Total Protein Albumin Globulin Albumin/Globulin Ratio Assessment & Plan - Assessment and Plan (Free Text) Assessment: 62 y/o male with left foot 3rd digit superficial laceration Plan Pt seen and examined at bedside with attending Dr. Tyler Labs and vitals reviewed - afebrile, absent leukocytosis Toe cleansed with saline and dressed with Optifoam bandage No clinical signs of infection noted, no clinical signs of underlying deep injury Pt stable from podiatry standpoint, recommend local wound care of bacitracin and bandaid <Richie Tyler - Last Filed: 03/14/18 15:44> Meds - Medications Medications: Current Medications Al Hydrox/Mg Hydrox/Simethicone (Maalox Plus 30 Ml) 30 ml PO DAILY [facility] PRN Reason: Indigestion / Heartburn Furosemide (Lasix) 40 mg PO DAILY [facility] Last Admin: 03/14/18 10:56 Dose: 40 mg Insulin Human Lispro (Humalog High) 0 units SC ACHS [facility] PRN Reason: Protocol Last Admin: 03/14/18 08:25 Dose: 7 units Insulin Lispro Protam/Lispro Human (Humalog Mix 75/25) 15 units SC BIDAC [facility] Lactulose (Enulose) 30 gm PO TID [facility] Last Admin: 03/13/18 17:38 Dose: 30 gm Pantoprazole Sodium (Protonix Ec Tab) 40 mg PO 0600 [facility] Last Admin: 03/14/18 05:55 Dose: 40 mg Pantoprazole Sodium (Protonix Ec Tab) 40 mg PO 0600 [facility] Rifaximin (Xifaxan) 550 mg PO BID [facility] PRN Reason: Protocol Last Admin: 03/14/18 10:59 Dose: 550 mg Spironolactone (Aldactone) 100 mg PO DAILY [facility] Last Admin: 03/14/18 10:51 Dose: 100 mg Sucralfate (Carafate Tab) 1 gm PO 0600,1600 [facility] Results - Vital Signs Recent Vital Signs: Last Vital Signs Temp 98.2 F 03/14/18 07:00 Pulse 82 03/14/18 07:00 Resp 18 03/14/18 07:00 BP 117/66 03/14/18 10:56 Pulse Ox 96 03/14/18 07:00 - Labs Result Diagrams: 03/14/18 07:00 03/14/18 07:00 Labs: Laboratory Results - last 24 hr 03/13/18 03/13/18 03/13/18 16:08 19:47 21:06 WBC RBC Hgb Hct MCV MCH MCHC RDW Plt Count Gran % Lymph % (Auto) Faulkner % (Auto) Eos % (Auto) Baso % (Auto) Gran # Lymph # (Auto) Fa[place]ner # (Auto) Eos # (Auto) Baso # (Auto) PT INR Sodium Potassium Chloride Carbon Dioxide Anion Gap BUN Creatinine Est GFR ( Amer) Est GFR (Non-Af Amer) POC Glucose (mg/dL) 430 H* 342 H 274 H Random Glucose Calcium Magnesium Total Bilirubin AST ALT Alkaline Phosphatase Ammonia Total Protein Albumin Globulin Albumin/Globulin Ratio 03/14/18 03/14/18 03/14/18 06:55 07:00 07:00 WBC 3.2 L D RBC 4.41 Hgb 12.8 L Hct 38.9 L MCV 88.2 MCH 29.0 MCHC 32.9 RDW 16.6 H Plt Count 34 L* Gran % 56.7 Lymph % (Auto) 22.6 Faulkner % (Auto) 17.3 H Eos % (Auto) 2.8 Baso % (Auto) 0.6 Gran # 1.83 Lymph # (Auto) 0.7 L Faulkner # (Auto) 0.6 Eos # (Auto) 0.1 Baso # (Auto) 0.02 PT INR Sodium 135 Potassium 3.5 L Chloride 104 Carbon Dioxide 26 Anion Gap 9 L BUN 12 Creatinine 0.5 L Est GFR ( Amer) > 60 Est GFR (Non-Af Amer) > 60 POC Glucose (mg/dL) 271 H Random Glucose 312 H* Calcium 7.8 L Magnesium 1.7 Total Bilirubin 4.6 H AST 39 ALT 30 Alkaline Phosphatase 125 Ammonia Total Protein 5.9 Albumin 2.3 L Globulin 3.6 Albumin/Globulin Ratio 0.6 L 03/14/18 03/14/18 03/14/18 07:00 07:00 11:13 WBC RBC Hgb Hct MCV MCH MCHC RDW Plt Count Gran % Lymph % (Auto) Faulkner % (Auto) Eos % (Auto) Baso % (Auto) Gran # Lymph # (Auto) Fa[place]ner # (Auto) Eos # (Auto) Baso # (Auto) PT 20.7 H INR 1.78 H Sodium Potassium Chloride Carbon Dioxide Anion Gap BUN Creatinine Est GFR ( Amer) Est GFR (Non-Af Amer) POC Glucose (mg/dL) 292 H Random Glucose Calcium Magnesium Total Bilirubin AST ALT Alkaline Phosphatase Ammonia 19 Total Protein Albumin Globulin Albumin/Globulin Ratio Attending/Attestation - Attestation I have personally seen and examined this patient.: Yes I have fully participated in the care of the patient.: Yes I have reviewed all pertinent clinical information: Yes
--- NOTE | 2018-03-14 13:58 | CP.PCM.DIS ---
Provider - Provider Date of Admission: 03/11/18 20:39 Attending physician: Jona Leavitt MD Primary care physician: Valdo Chen MD Consults: GI: Neptali Time Spent in preparation of Discharge (in minutes): 35 Hospital Course - Lab Results Lab Results: Most Recent Lab Values WBC 3.2 10^3/ul (4.5-11.0) L D 03/14/18 07:00 RBC 4.41 10^6/uL (3.5-6.1) 03/14/18 07:00 Hgb 12.8 g/dL (14.0-18.0) L 03/14/18 07:00 Hct 38.9 % (42.0-52.0) L 03/14/18 07:00 MCV 88.2 fl (80.0-105.0) 03/14/18 07:00 MCH 29.0 pg (25.0-35.0) 03/14/18 07:00 MCHC 32.9 g/dl (31.0-37.0) 03/14/18 07:00 RDW 16.6 % (11.5-14.5) H 03/14/18 07:00 Plt Count 34 10^3/uL (120.0-450.0) L* 03/14/18 07:00 MPV 9.6 fl (7.0-11.0) 03/13/18 05:55 Gran % 56.7 % (50.0-68.0) 03/14/18 07:00 Lymph % (Auto) 22.6 % (22.0-35.0) 03/14/18 07:00 [place] % (Auto) 17.3 % (1.0-6.0) H 03/14/18 07:00 Eos % (Auto) 2.8 % (1.5-5.0) 03/14/18 07:00 Baso % (Auto) 0.6 % (0.0-3.0) 03/14/18 07:00 Gran # 1.83 (1.4-6.5) 03/14/18 07:00 Lymph # (Auto) 0.7 (1.2-3.4) L 03/14/18 07:00 [place] # (Auto) 0.6 (0.1-0.6) 03/14/18 07:00 Eos # (Auto) 0.1 (0.0-0.7) 03/14/18 07:00 Baso # (Auto) 0.02 K/mm3 (0.0-2.0) 03/14/18 07:00 PT 20.7 SECONDS (9.4-12.5) H 03/14/18 07:00 INR 1.78 (0.93-1.08) H 03/14/18 07:00 APTT 38.3 Seconds (25.1-36.5) H 03/11/18 18:45 pO2 125 mm/Hg (30-55) H 03/12/18 00:15 VBG pH 7.42 (7.32-7.43) 03/12/18 00:15 VBG pCO2 37.0 (40-60) L 03/12/18 00:15 VBG HCO3 24.0 mmol/l (21-28) 03/12/18 00:15 VBG Total CO2 25.1 mmol.L (22-28) 03/12/18 00:15 VBG O2 Sat (Calc) 100.0 % (40-65) H 03/12/18 00:15 VBG Base Excess -0.2 mmol/L (0.0-2.0) L 03/12/18 00:15 VBG Potassium 3.9 mmol/L (3.6-5.2) 03/12/18 00:15 Sodium 137.0 mmol/L (132-148) 03/12/18 00:15 Chloride 107.0 mmol/L (98-107) 03/12/18 00:15 Glucose 310 mg/dl (75-110) H 03/12/18 00:15 Lactate 2.2 mmol/L (0.7-2.1) H 03/12/18 00:15 FiO2 21.0 % 03/12/18 00:15 Sodium 135 mmol/L (132-148) 03/14/18 07:00 Potassium 3.5 mmol/L (3.6-5.0) L 03/14/18 07:00 Chloride 104 mmol/L (98-107) 03/14/18 07:00 Carbon Dioxide 26 mmol/L (21-33) 03/14/18 07:00 Anion Gap 9 (10-20) L 03/14/18 07:00 BUN 12 mg/dL (7-21) 03/14/18 07:00 Creatinine 0.5 mg/dl (0.8-1.5) L 03/14/18 07:00 Est GFR ( Amer) > 60 03/14/18 07:00 Est GFR (Non-Af Amer) > 60 03/14/18 07:00 POC Glucose (mg/dL) 292 mg/dL (65-110) H 03/14/18 11:13 Random Glucose 312 mg/dL (70-110) H* 03/14/18 07:00 Lactic Acid 2.0 mmol/L (0.7-2.1) 03/12/18 05:30 Calcium 7.8 mg/dL (8.4-10.5) L 03/14/18 07:00 Phosphorus 2.9 mg/dL (2.5-4.5) 03/11/18 18:45 Magnesium 1.7 mg/dL (1.7-2.2) 03/14/18 07:00 Total Bilirubin 4.6 mg/dL (0.2-1.3) H 03/14/18 07:00 AST 39 U/L (17-59) 03/14/18 07:00 ALT 30 U/L (7-56) 03/14/18 07:00 Alkaline Phosphatase 125 U/L (38-126) 03/14/18 07:00 Ammonia 19 umol/L (9-33) 03/14/18 07:00 Lactate Dehydrogenase 523 U/L (333-699) 03/13/18 05:55 Total Creatine Kinase 62 U/L (35-230) 03/11/18 18:45 Troponin I < 0.01 ng/mL 03/11/18 18:45 NT-Pro-B Natriuret Pep 122 pg/mL (0-450) 03/11/18 18:45 Total Protein 5.9 g/dL (5.8-8.3) 03/14/18 07:00 Albumin 2.3 g/dL (3.0-4.8) L 03/14/18 07:00 Globulin 3.6 gm/dL 03/14/18 07:00 Albumin/Globulin Ratio 0.6 (1.1-1.8) L 03/14/18 07:00 Lipase 74 U/L (23-300) 03/11/18 21:35 Procalcitonin 0.11 NG/ML (0.19-0.49) L 03/11/18 18:45 Venous Blood Potassium 3.9 mmol/L (3.6-5.2) 03/12/18 00:15 Urine Color yellow (YELLOW) 03/11/18 20:15 Urine Appearance Sl cloudy (CLEAR) 03/11/18 20:15 Urine pH 8.5 (4.7-8.0) 03/11/18 20:15 Ur Specific [place] 1.010 (1.005-1.035) 03/11/18 20:15 Urine Protein 30 mg/dL (<30 mg/dL) H 03/11/18 20:15 Urine Glucose (UA) 500 mg/dL (NEGATIVE) H 03/11/18 20:15 Urine Ketones Trace mg/dL (NEGATIVE) H 03/11/18 20:15 Urine Blood Negative (NEGATIVE) 03/11/18 20:15 Urine Nitrate Negative (NEGATIVE) 03/11/18 20:15 Urine Bilirubin Negative (NEGATIVE) 03/11/18 20:15 Urine Urobilinogen 2.0 E.U./dL (<1 E.U./dL) H 03/11/18 20:15 Ur Leukocyte Esterase Negative Tank/uL (NEGATIVE) 03/11/18 20:15 Urine RBC 2 - 5 /hpf (0-2) 03/11/18 20:15 Urine WBC 5 - 10 /hpf (0-6) 03/11/18 20:15 Ur Epithelial Cells 6 - 8 /hpf (0-5) 03/11/18 20:15 Urine Opiates Screen Negative (NEGATIVE) 03/11/18 20:15 Urine Methadone Screen Negative (NEGATIVE) 03/11/18 20:15 Ur Barbiturates Screen Negative (NEGATIVE) 03/11/18 20:15 Ur Phencyclidine Scrn Negative (NEGATIVE) 03/11/18 20:15 Ur Amphetamines Screen Negative (NEGATIVE) 03/11/18 20:15 U Benzodiazepines Scrn Negative (NEGATIVE) 03/11/18 20:15 U Oth Cocaine Metabols Negative (NEGATIVE) 03/11/18 20:15 U Cannabinoids Screen Negative (NEGATIVE) 03/11/18 20:15 Alcohol, Quantitative < 10 mg/dL (0-10) 03/11/18 18:45 Blood Type O POSITIVE 03/12/18 05:30 Antibody Screen Negative 03/12/18 05:30 BBK History Checked Patient has bt 03/12/18 05:30 - Hospital Course Hospital Course: History of Present Illness: Patient is a 62 year old male with PMH Hep C, cirrhosis, bilateral inguinal hernias, IDDM, brought into the emergency department by EMS for altered mental status. Patient has been seen multiple times for same presentation. As per EMS, no fever or vomiting. HPI and ROS limited due to patient's altered mental status. At this time patient is non-verbal but is able to follow commands. History obtained from previous charting. Hospital Course: Patient was admitted to Med/Surg for altered mental status. Discharge Exam - Head Exam Head Exam: ATRAUMATIC, NORMOCEPHALIC Discharge Plan - Discharge Medications Prescriptions: Furosemide [Lasix] 40 mg PO DAILY #30 tablet Lactulose [Enulose] 30 gm PO TID #90 udc Pantoprazole [Protonix EC Tab] 40 mg PO 0600 #30 ect rifAXIMin [Xifaxan] 550 mg PO BID #60 tab Spironolactone [Aldactone] 100 mg PO DAILY #30 tablet - Follow Up Plan Condition: FAIR Disposition: HOME/ ROUTINE Additional Instructions: 1. Take medications as prescribed. Do not stop taking Lactulose 2. Follow up with [facility] for follow up on Liver problems. 3. Follow up with outpatient [facility] for repeat blood work on March at 9:30 am. Please come 30min early. Please fill out [facility] [place] paperwork prior to appointment. Referrals: [facility] at [facility] [Outside] [facility] at [facility] [Outside] [facility] at [place] [Outside] Valdo Chen MD [Primary Care Provider] - Jair Fernández MD [Staff Provider] -
[2018-03-14] MEDS ORDERED: Alum-Mag Hydrox-Simethicone Susp (30 mL) PO ONE (14:17)
--- NOTE | 2018-03-14 15:10 | CP.PCM.PN ---
<Kelly Pang - Last Filed: 03/14/18 15:16> Subjective - Date & Time of Evaluation Date of Evaluation: 03/14/18 Time of Evaluation: 15:09 - Subjective Subjective: Internal Medicine Progress Note: Patient seen and examined at bedside. Per nursing no acute events overnight. Patient states that he is hungry. He is more awake and alert today. Denies any other complaints at this time. Objective - Vital Signs/Intake and Output Vital Signs (last 24 hours): Temp Pulse Resp BP Pulse Ox 98.2 F 82 18 117/66 96 03/14/18 07:00 03/14/18 07:00 03/14/18 07:00 03/14/18 10:56 03/14/18 07:00 Intake and Output: 03/14/18 03/14/18 06:59 18:59 Intake Total 720 Balance 720 - Medications Medications: Current Medications Furosemide (Lasix) 40 mg PO DAILY [facility] Last Admin: 03/14/18 10:56 Dose: 40 mg Insulin Human Lispro (Humalog High) 0 units SC ACHS [facility] PRN Reason: Protocol Last Admin: 03/14/18 08:25 Dose: 7 units Insulin Lispro Protam/Lispro Human (Humalog Mix 75/25) 15 units SC BIDAC [facility] Lactulose (Enulose) 30 gm PO TID [facility] Last Admin: 03/13/18 17:38 Dose: 30 gm Pantoprazole Sodium (Protonix Ec Tab) 40 mg PO 0600 [facility] Last Admin: 03/14/18 05:55 Dose: 40 mg Pantoprazole Sodium (Protonix Ec Tab) 40 mg PO 0600 [facility] Rifaximin (Xifaxan) 550 mg PO BID [facility] PRN Reason: Protocol Last Admin: 03/14/18 10:59 Dose: 550 mg Spironolactone (Aldactone) 100 mg PO DAILY [facility] Last Admin: 03/14/18 10:51 Dose: 100 mg - Labs Labs: 03/14/18 07:00 03/14/18 07:00 PT 20.7 SECONDS (9.4-12.5) H 03/14/18 07:00 INR 1.78 (0.93-1.08) H 03/14/18 07:00 APTT 38.3 Seconds (25.1-36.5) H 03/11/18 18:45 - Constitutional Appears: Non-toxic, No Acute Distress, Chronically Ill - Head Exam Head Exam: ATRAUMATIC, NORMAL INSPECTION, NORMOCEPHALIC - Eye Exam Eye Exam: EOMI, Normal appearance Pupil Exam: NORMAL ACCOMODATION - ENT Exam ENT Exam: Mucous Membranes Moist - Neck Exam Neck Exam: Full ROM - Respiratory Exam Respiratory Exam: Clear to Ausculation Bilateral, NORMAL BREATHING PATTERN. absent: Rales, Rhonchi, Wheezes - Cardiovascular Exam Cardiovascular Exam: REGULAR RHYTHM, +S1, +S2 - GI/Abdominal Exam GI & Abdominal Exam: Soft, Normal Bowel Sounds. absent: Guarding, Rigid, Tenderness, Rebound - Extremities Exam Extremities Exam: Pedal Edema Additional comments: +1 pitting edema - Back Exam Back Exam: NORMAL INSPECTION - Neurological Exam Neurological Exam: Alert, Awake, Oriented x3 - Psychiatric Exam Psychiatric exam: Normal Affect, Normal Mood - Skin Skin Exam: Dry, Normal Color, Warm Assessment and Plan - Assessment and Plan (Free Text) Assessment: 62 year old male with PMH Hep C, cirrhosis, bilateral inguinal hernias, IDDM admitted for evaluation and treatment of Altered mental Status Plan: Altered Mental Status -[facility] 2/2 to Hepatic Encephalopathy. Ammonia 121 on Admission. -Alcohol <10, Utox negative -History of Liver cirrhosis, Hep C -No focal/neuro deficits on exam -CT Abd/Pelvis (Adm): Cirrhosis with splenomegaly, varices and ascites; chronic calcific pancreatitis; probable ileus, no obstruction; possibly constipation; empty bladder with Serna catheter in wall thickening -Patient received in the ED: 200gm Lactulose WA, 1L Fluid Bolus x 2 -Ammonia is trending down, patient mentation improved after lactulose -Blood cultures showing no growth, urine cultures showing no growth; procal is low -Cotninue on Rifaxamin, Lactulose 30mg PO TID -Continue Lasix 40mg daily and Aldactone 100mg daily -GI on consult, help appreciated -Physical Therapy evaluation -Patient mental status improved after lactulose, SBP not likely; discussed with GI, will hold off paracentesis at this time. Leukopenia -Afebrile -Daily CBC -Chronic in nature Scrotal Swelling -US on last admission negative for torsion -Consider repeat US -Scrotal elevation. Hypomagnesemia -Continue to monitor Thrombocytopenia (Chronic) -Likely 2/2 Hepatic Cirrhosis -No Gross bleeding -Daily CBC -Cont. to Monitor Hx of IDDM -High dose ISS -Accuchecks ACHS -Humalog 75/25 15 units BIDAC -High dose ISS Proph -Protonix 40mg PO daily -Lower extremity dopplers negative for DVT Disposition: Patient is was cleared for discharge home, later in the afternoon patient was complaining of epigastric discomfort. Had mild tenderness in epigastric region. Maalox and STAT EKG ordered. Will hold discharge at this time. Plan discussed with Dr Leavitt <Jona Leavitt - Last Filed: 03/14/18 18:38> Objective - Vital Signs/Intake and Output Vital Signs (last 24 hours): Temp Pulse Resp BP Pulse Ox 98.2 F 82 18 117/66 96 03/14/18 07:00 03/14/18 07:00 03/14/18 07:00 03/14/18 10:56 03/14/18 07:00 Intake and Output: 03/14/18 03/14/18 06:59 18:59 Intake Total 720 Balance 720 - Medications Medications: Current Medications Al Hydrox/Mg Hydrox/Simethicone (Maalox Plus 30 Ml) 30 ml PO DAILY PRN PRN Reason: Indigestion / Heartburn Furosemide (Lasix) 40 mg PO DAILY [facility] Last Admin: 03/14/18 10:56 Dose: 40 mg Insulin Human Lispro (Humalog High) 0 units SC ACHS [facility] PRN Reason: Protocol Last Admin: 03/14/18 16:13 Dose: 12 units Insulin Lispro Protam/Lispro Human (Humalog Mix 75/25) 15 units SC BIDAC [facility] Last Admin: 03/14/18 17:26 Dose: Not Given Lactulose (Enulose) 30 gm PO TID [facility] Last Admin: 03/14/18 17:18 Dose: 20 gm Pantoprazole Sodium (Protonix Ec Tab) 40 mg PO 0600 [facility] Last Admin: 03/14/18 05:55 Dose: 40 mg Pantoprazole Sodium (Protonix Ec Tab) 40 mg PO 0600 [facility] Rifaximin (Xifaxan) 550 mg PO BID [facility] PRN Reason: Protocol Last Admin: 03/14/18 17:25 Dose: Not Given Spironolactone (Aldactone) 100 mg PO DAILY [facility] Last Admin: 03/14/18 10:51 Dose: 100 mg Sucralfate (Carafate Tab) 1 gm PO 0600,1600 [facility] Last Admin: 03/14/18 17:25 Dose: Not Given - Labs Labs: 03/14/18 07:00 03/14/18 07:00 PT 20.7 SECONDS (9.4-12.5) H 03/14/18 07:00 INR 1.78 (0.93-1.08) H 03/14/18 07:00 APTT 38.3 Seconds (25.1-36.5) H 03/11/18 18:45 Attending/Attestation - Attestation I have personally seen and examined this patient.: Yes I have fully participated in the care of the patient.: Yes I have reviewed all pertinent clinical information, including history, physical exam and plan: Yes Notes (Text): 03/14/18 18:35 Medical record note made by the resident after discussion with my direction and input after the patient was personally seen and examined by me. I have reviewed the chart and agree that the record accurately reflects by personal performance of the history, physical exam, data review, and medical decision-making, in the course for the patient. I have also personally directed the plan of care. 62 yrs old male with PMH of Hep c ,chronic liver disease, Thrombocytopenia , Ascites is admitted with change of mental status due to hepatic encephlopathy.Patient has responded well to lactulose.He is alert, awake today , Amonia level is back to normal.We will advance his diet Neutropenia and thrombocytopenia is due to chronic liver disease .Patient is afebrile.There is no evidence of bleeding. Scrotal swelling is chronic , due to dependent edema.There is evidence of any infection.Patient is not having any scrotal pain, continue lasix and aldactone for ascites. Prognosis is guarded. Management plan was discussed in detail with patient, has poor insight , need reinforcement.
[2018-03-14] MEDS: Insulin Lispro (humaLOG) MIX 75/25(10 ml) SC SCH ×2 (17:18→17:26)
--- NOTE | 2018-03-14 18:47 | CARD ---
APPROVED REPORT EKG Measurement Heart [id number] <Conclusion> Normal sinus rhythm Normal ECG
--- NOTE | 2018-03-14 20:41 | US ---
PROCEDURE: Limited abdominal ultrasound HISTORY: Hep C cirrhosis. Abdominal pain with ascites. PHYSICIAN(S): Harman Newell MD. TECHNIQUE: Sonography in all 4 quadrants was performed. A trace amount of fluid is seen in the upper and lower abdomen. There is not enough fluid to safely perform an ultrasound-guided paracentesis. If fluid sampling is absolutely necessary, consideration can be given for CT-guided paracentesis. IMPRESSION: Trace amount of fluid in the upper and lower abdomen. Not enough to safely allow ultrasound-guided paracentesis.
[2018-03-14] MEDS ORDERED: Lactulose 10 gm/15 ml (Rectal Use) PR ONE (23:31)
--- NOTE | 2018-03-14 23:47 | CP.PCM.PN ---
<Andre Andre - Last Filed: 03/14/18 23:45> Subjective - Date & Time of Evaluation Date of Evaluation: 03/14/18 Time of Evaluation: 23:45 - Subjective Subjective: Paged by nurse for Vomiting Episode and AM. Vitals are stable but patient is not responding to tactile or verbal stimulus. Ordered Stat ABG, Lactulose Per Rectum, Ammonia Level, Aspiration Precaution, elevated head of bed, Q2H Vitals and PRN Zofan. Objective - Vital Signs/Intake and Output Vital Signs (last 24 hours): Temp Pulse Resp BP Pulse Ox 98.2 F 82 18 117/66 96 03/14/18 07:00 03/14/18 07:00 03/14/18 07:00 03/14/18 10:56 03/14/18 07:00 - Medications Medications: Current Medications Al Hydrox/Mg Hydrox/Simethicone (Maalox Plus 30 Ml) 30 ml PO DAILY PRN PRN Reason: Indigestion / Heartburn Furosemide (Lasix) 40 mg PO DAILY [facility] Last Admin: 03/14/18 10:56 Dose: 40 mg Insulin Human Lispro (Humalog High) 0 units SC ACHS [facility] PRN Reason: Protocol Last Admin: 03/14/18 22:06 Dose: 2 units Insulin Lispro Protam/Lispro Human (Humalog Mix 75/25) 15 units SC BIDAC [facility] Last Admin: 03/14/18 17:26 Dose: Not Given Lactulose (Enulose) 30 gm PO TID [facility] Last Admin: 03/14/18 17:18 Dose: 20 gm Ondansetron HCl (Zofran Inj) 4 mg IVP Q6H PRN PRN Reason: Nausea/Vomiting Pantoprazole Sodium (Protonix Ec Tab) 40 mg PO 0600 [facility] Last Admin: 03/14/18 05:55 Dose: 40 mg Rifaximin (Xifaxan) 550 mg PO BID [facility] PRN Reason: Protocol Last Admin: 03/14/18 17:25 Dose: Not Given Spironolactone (Aldactone) 100 mg PO DAILY [facility] Last Admin: 03/14/18 10:51 Dose: 100 mg Sucralfate (Carafate Tab) 1 gm PO 0600,1600 [facility] Last Admin: 03/14/18 17:25 Dose: Not Given - Labs Labs: 03/14/18 07:00 05/04/18 07:00 PT 20.7 SECONDS (9.4-12.5) H 03/14/18 07:00 INR 1.78 (0.93-1.08) H 03/14/18 07:00 APTT 38.3 Seconds (25.1-36.5) H 03/11/18 18:45 <Natalio Boyle - Last Filed: 03/15/18 04:23> Objective - Vital Signs/Intake and Output Vital Signs (last 24 hours): Temp Pulse Resp BP Pulse Ox 97.8 F 92 H 18 161/80 H 94 L 03/15/18 00:29 03/15/18 00:29 03/15/18 00:29 03/15/18 03:41 03/15/18 00:29 - Medications Medications: Current Medications Al Hydrox/Mg Hydrox/Simethicone (Maalox Plus 30 Ml) 30 ml PO DAILY PRN PRN Reason: Indigestion / Heartburn Furosemide (Lasix) 40 mg PO DAILY [facility] Last Admin: 03/14/18 10:56 Dose: 40 mg Insulin Human Lispro (Humalog High) 0 units SC ACHS [facility] PRN Reason: Protocol Last Admin: 03/14/18 22:06 Dose: 2 units Insulin Lispro Protam/Lispro Human (Humalog Mix 75/25) 15 units SC BIDAC [facility] Last Admin: 03/14/18 17:26 Dose: Not Given Labetalol HCl (Trandate) 10 mg IV Q4 PRN PRN Reason: Blood Pressure 220/110 & above Lactulose (Enulose) 30 gm PO TID [facility] Last Admin: 03/14/18 17:18 Dose: 20 gm Ondansetron HCl (Zofran Inj) 4 mg IVP Q6H PRN PRN Reason: Nausea/Vomiting Last Admin: 03/15/18 00:14 Dose: 4 mg Pantoprazole Sodium (Protonix Ec Tab) 40 mg PO 0600 [facility] Last Admin: 03/14/18 05:55 Dose: 40 mg Rifaximin (Xifaxan) 550 mg PO BID [facility] PRN Reason: Protocol Last Admin: 03/14/18 17:25 Dose: Not Given Spironolactone (Aldactone) 100 mg PO DAILY [facility] Last Admin: 03/14/18 10:51 Dose: 100 mg Sucralfate (Carafate Tab) 1 gm PO 0600,1600 [facility] Last Admin: 03/14/18 17:25 Dose: Not Given - Labs Labs: 03/15/18 03:30 03/14/18 07:00 PT 20.7 SECONDS (9.4-12.5) H 03/14/18 07:00 INR 1.78 (0.93-1.08) H 03/14/18 07:00 APTT 38.3 Seconds (25.1-36.5) H 03/11/18 18:45 Attending/Attestation - Attestation I have personally seen and examined this patient.: Yes I have fully participated in the care of the patient.: Yes I have reviewed all pertinent clinical information, including history, physical exam and plan: Yes Notes (Text): 03/15/18 04:23 Patient was seen.
[2018-03-15 00:32] LABS: ARTERIAL BLOOD GAS HCO3 20.4 mmol/L (21-28); ARTERIAL BLOOD GAS HEMOGLOBIN 12.9 g/dL (11.7-17.4); ARTERIAL BLOOD GAS O2 CAPACITY 17.4 mL/dl (16-24); ARTERIAL BLOOD GAS O2 SAT 97.5 % (95-98); ARTERIAL BLOOD GAS PCO2 30 mm/Hg (35-45); ARTERIAL BLOOD GAS PH 7.44 (7.35-7.45); ARTERIAL BLOOD GAS TCO2 21.3 mmol.L (22-28)
[2018-03-15 01:36] LABS: HEMOGLOBIN 14.3 g/dL (14.0-18.0)
[2018-03-15] MEDS ORDERED: Insulin Regular 1 UNITS/0.01 ML ML SC STA (02:36)
[2018-03-15] MEDS ORDERED: Labetalol 5 mg/ml Inj 20ML IV PRN (03:08)
[2018-03-15] MEDS ORDERED: Phytonadione 10 MG in Sodium Chloride 0.9% 50 ML IV ONE ×2 (03:19→09:07)
--- NOTE | 2018-03-15 03:27 | PCM.STROKE ---
<Andre Andre - Last Filed: 03/15/18 03:37> Interval History Stroke Date: 03/15/18 Additional history per family/caregiver (name): History of Cirrhosis with Hepatic Encephalopathy - Education Written Stroke Education provided regarding: personal risk factors, stroke warning sign/symptoms, how to activate emergency medical services, need to follow up after discharge Hx Atrial Fibrillation: No Hx Atrial Flutter: No NIHSS Stroke Scale - Date/Time Evaluation Performed Date Performed: 03/15/18 Time Performed: 03:07 When Was NIHSS Performed: Code Stroke - How Severe is the Stroke Level of Consciousness: 2=Obtunded LOC to Questions: 2=Neither correct LOC to commands: 2=Neither correct Best Gaze: 2=Forced deviation Visual: 0=No visual loss Facial: 0=Normal Motor Arm - Left: 3=No effort against gravity (falls immediately) Motor Arm - Right: 4=No movement Motor Leg - Left: 3=No effort against gravity (falls immediately) Motor Leg - Right: 4=No movement Limb Ataxia: 1=Present Upper or Lower Sensory: 1=Mild to moderate loss Best Language: 3=Mute Dysarthia: 2=Severe, near unintelligible or worse Extinction & Inattention (Neglect): 1=Partial neglect (mild jeison-attention) Score: 30 Exam - Vital Sign Vital Signs: Temp Pulse Resp BP Pulse Ox 97.8 F 92 H 18 130/66 94 L 03/15/18 00:29 03/15/18 00:29 03/15/18 00:29 03/15/18 00:29 03/15/18 00:29 Constitutional: Normal appearing Right Pupil: Reactive Left Pupil: Reactive Cardiovascular: Regular rate & rhythm. absent: Murmurs Mental Status: Normal: Other (Altered) - Data reviewed Laboratory results: 03/15/18 01:20 03/14/18 07:00 Assessment and Plan - Assessment and Plan (Free Text) Assessment: Code Stroke Plan: CTA Head/Neck PRN Labetolol Lasix 40 IV Vital Signs Transfer to ICU TSH, T4, T3 CBC, CMP Lipid panel BNP CRP <Natalio Boyle - Last Filed: 03/15/18 04:22> Interval History - Education Written Stroke Education provided regarding: personal risk factors, stroke warning sign/symptoms, how to activate emergency medical services, need to follow up after discharge Exam - Vital Sign Vital Signs: Temp Pulse Resp BP Pulse Ox 97.8 F 92 H 18 161/80 H 94 L 03/15/18 00:29 03/15/18 00:29 03/15/18 00:29 03/15/18 03:41 03/15/18 00:29 - Data reviewed Laboratory results: 03/15/18 03:30 03/14/18 07:00 Attending/Attestation - Attestation I have personally seen and examined this patient.: Yes I have fully participated in the care of the patient.: Yes I have reviewed all pertinent clinical information, including history, physical exam and plan: Yes Notes (Text): 03/15/18 04:18 Patient was seen at bedside. Found to have right sided weakness,responsive to deep painful stimuli. Medical record was reviewed. CT head showed leftsided intraventricular large hemorrhage. Code stroke protocols follwed. Discussed with Dr. Taurus Rodriguez and . Will transfer him ti ICU. CCT spent 30 minutes.
--- NOTE | 2018-03-15 03:40 | CT ---
EXAM: CT Head Without Intravenous Contrast EXAM DATE/TIME: 03/15/2018 2:21 AM CLINICAL HISTORY: 62 years old, male; Signs and symptoms; Altered mental status/memory loss; Additional info: AMS. Code stroke. TECHNIQUE: Axial computed tomography images of the head/brain without intravenous contrast. All CT scans at this facility use one or more dose reduction techniques, viz.: automated exposure control; ma/kV adjustment per patient size (including targeted exams where dose is matched to indication; i.e. head); or iterative reconstruction technique. Coronal and sagittal reformatted images were created and reviewed. COMPARISON: CT - HEAD W/O CONTRAST 2016-05-01 21:28 FINDINGS: There is a large 8 x 4 cm intraparenchymal hemorrhage in the left parietal lobe with intraventricular extension. Blood is present in the left lateral ventricle as well as the occipital horn of the right lateral ventricle. There is low attenuation surrounding the hemorrhage consistent with edema. There is mass effect upon the left lateral ventricle and third ventricle. There is midline shift to the right of approximately 11 mm. There is effacement of the left cerebral sulci as well as effacement of the quadrigeminal plate cistern and suprasellar cistern. The sinuses and mastoid air cells are clear. The osseous structures are normal. IMPRESSION: Large right parietal intraparenchymal hemorrhage with intraventricular extension. Surrounding edema is present with mass effect, midline shift, and effacement of the sulci and cisterns.
[2018-03-15 03:59] LABS: BASO # 0.01 K/mm3 (0.0-2.0); BASO % 0.2 % (0.0-3.0); GRAN # 5.63 (1.4-6.5); GRAN % 84.7 % (50.0-68.0); HEMOGLOBIN 14.9 g/dL (14.0-18.0); LYMPH # 0.6 (1.2-3.4); LYMPH % 8.3 % (22.0-35.0); MEAN CELL VOLUME 87.3 fl (80.0-105.0); MEAN CORPUSCULAR HEMOGLOBIN 29.9 pg (25.0-35.0); MEAN CORPUSCULAR HGB CONC 34.3 g/dl (31.0-37.0); MEAN PLATELET VOLUME 9.7 fl (7.0-11.0); MONO # 0.5 (0.1-0.6); MONO % 6.8 % (1.0-6.0); RBC 4.98 10^6/uL (3.5-6.1); RED CELL DISTRIBUTION WIDTH 16.4 % (11.5-14.5); WHITE BLOOD COUNT 6.6 10^3/ul (4.5-11.0)
[2018-03-15 04:21] LABS: LDL CHOLESTEROL 118 mg/dL (0-129)
[2018-03-15 04:22] LABS: B-TYPE NATRIURETIC PEPTIDE 197 pg/mL (0-450); TROPONIN I < 0.01 ng/mL
[2018-03-15 04:30] LABS: T4 6.6 ug/dL (5.5-11.0)
--- NOTE | 2018-03-15 04:30 | CP.PCM.CON ---
History of Present Illness - History of Present Illness History of Present Illness: ICU Consult Note: Dr. Reis Reason for consult: Code Stroke (Hemorrhagic) HPI: 62 year old male with significant past medical history presented to the ED on for altered mental status. He was non responsive at the time and was unable to follow commands. While patient was here, he became more alert and oriented, but was still confused. Today, the resident english as a second language teacher was paged due to an episode of nausea and vomiting. A stat Head CT was ordered, which showed a R parietal intraparenchymal hemorrhage with mass effect and midline shift. Findings were discussed with Dr. Sharp, who was kind enough to explain the read. History from patient is limited 2/2 mental status Review of Systems: 12 point ROS elicited but was not obtained 2/2 mental status PMH: Hepatitis C, Cirrhosis, R inguinal hernia, IDDM, noncompliance PSH: Denied in the past All: NKDA FamilyHx: Denied during last admission SocialHx: Current smoker, denies alcohol or illicit drug use during last admission. Normally able to preform ADL's. Meds: Reviewed See MAR; Hx of Non-Compliance Allergies: NKDA Past Patient History - Infectious Disease Hx of Infectious Diseases: None - Tetanus Immunizations Tetanus Immunization: Unknown - Past Medical History & Family History Past Medical History?: Yes - Past Social History Smoking Status: Light Smoker < 10 Cigarettes Daily - CARDIAC Hx Atrial Fibrillation: No - PULMONARY Hx Respiratory Disorders: No - NEUROLOGICAL Hx Neurological Disorder: No - HEENT Hx HEENT Problems: No - RENAL Hx Chronic Kidney Disease: No - ENDOCRINE/METABOLIC Hx Diabetes Mellitus Type 1: Yes - HEMATOLOGICAL/ONCOLOGICAL Hx Cirrhosis: Yes Hx Hepatitis C: Yes Other/Comment: Inguinal hernia - INTEGUMENTARY Hx Dermatological Problems: No - MUSCULOSKELETAL/RHEUMATOLOGICAL Hx Musculoskeletal Disorders: No Hx Falls: Yes - GASTROINTESTINAL Hx Gastrointestinal Disorders: Yes Other/Comment: Liver Disease - GENITOURINARY/GYNECOLOGICAL Hx Genitourinary Disorders: No - PSYCHIATRIC Hx Psychophysiologic Disorder: No Hx Substance Use: No - SURGICAL HISTORY Hx Surgeries: No - ANESTHESIA Hx Anesthesia: No Hx Anesthesia Reactions: No Meds Home Medications: Home Medication List Medication Instructions Recorded Confirmed Type Furosemide [Lasix] 40 mg PO DAILY #30 tablet 03/14/18 Rx Lactulose [Enulose] 30 gm PO TID #90 udc 03/14/18 Rx Pantoprazole [Protonix EC Tab] 40 mg PO 0600 #30 ect 03/14/18 Rx Spironolactone [Aldactone] 100 mg PO DAILY #30 tablet 03/14/18 Rx rifAXIMin [Xifaxan] 550 mg PO BID #60 tab 03/14/18 Rx Allergies/Adverse Reactions: Allergies Allergy/AdvReac Type Severity Reaction Status Date / Time No Known Allergies Allergy Verified 01/08/18 20:25 - Medications Medications: Current Medications Al Hydrox/Mg Hydrox/Simethicone (Maalox Plus 30 Ml) 30 ml PO DAILY PRN PRN Reason: Indigestion / Heartburn Furosemide (Lasix) 40 mg PO DAILY [facility] Last Admin: 03/14/18 10:56 Dose: 40 mg Insulin Human Lispro (Humalog High) 0 units SC ACHS [facility] PRN Reason: Protocol Last Admin: 03/14/18 22:06 Dose: 2 units Insulin Lispro Protam/Lispro Human (Humalog Mix 75/25) 15 units SC BIDAC [facility] Last Admin: 03/14/18 17:26 Dose: Not Given Labetalol HCl (Trandate) 10 mg IV Q4 PRN PRN Reason: Blood Pressure 220/110 & above Lactulose (Enulose) 30 gm PO TID [facility] Last Admin: 03/14/18 17:18 Dose: 20 gm Ondansetron HCl (Zofran Inj) 4 mg IVP Q6H PRN PRN Reason: Nausea/Vomiting Last Admin: 03/15/18 00:14 Dose: 4 mg Pantoprazole Sodium (Protonix Ec Tab) 40 mg PO 0600 [facility] Last Admin: 03/14/18 05:55 Dose: 40 mg Rifaximin (Xifaxan) 550 mg PO BID [facility] PRN Reason: Protocol Last Admin: 03/14/18 17:25 Dose: Not Given Spironolactone (Aldactone) 100 mg PO DAILY [facility] Last Admin: 03/14/18 10:51 Dose: 100 mg Sucralfate (Carafate Tab) 1 gm PO 0600,1600 [facility] Last Admin: 03/14/18 17:25 Dose: Not Given Physical Exam - Constitutional Appears: No Acute Distress, Unkempt, Chronically Ill - Head Exam Head Exam: ATRAUMATIC, NORMAL INSPECTION, NORMOCEPHALIC - Eye Exam Eye Exam: EOMI, Normal appearance, PERRL Pupil Exam: NORMAL ACCOMODATION, PERRL - ENT Exam ENT Exam: Mucous Membranes Moist, Normal Exam - Neck Exam Neck exam: Positive for: Normal Inspection - Respiratory Exam Respiratory Exam: Clear to Auscultation Bilateral, NORMAL BREATHING PATTERN - Cardiovascular Exam Cardiovascular Exam: REGULAR RHYTHM - GI/Abdominal Exam GI & Abdominal Exam: Normal Bowel Sounds, Soft. absent: Tenderness - Extremities Exam Extremities exam: Positive for: normal inspection - Back Exam Back exam: NORMAL INSPECTION - Neurological Exam Neurological exam: Altered, CN II-XII Intact, Normal Gait, Oriented x3, Reflexes Normal - Expanded Neurological Exam Expanded Cranial nerves: EOM's Intact: Abnormal Left, Abnormal Right (Does not follow commands), Facial Sensation: Normal (Responds to pain stimuli), Gag Reflex: Normal, Tongue Deviation: Normal Sensory exam: Lower Extremity Pin Prick: Normal, Upper Extremity Pin Prick: Normal DTR: Achilles Tendon Left: 2+, Achilles Tendon Right: 2+, Bicep Left: 2+, Bicep Right: 2+ Coma Scale Eye Opening: None Coma Scale Motor Response: Withdraws to Pain Coma Scale Verbal: None Coma Scale Total: 6 - Skin Skin Exam: Dry, Intact, Normal Color, Warm Results - Vital Signs Recent Vital Signs: Last Vital Signs Temp 97.8 F 03/15/18 00:29 Pulse 92 H 03/15/18 00:29 Resp 18 03/15/18 00:29 BP 161/80 H 03/15/18 03:41 Pulse Ox 94 L 03/15/18 00:29 - Labs Result Diagrams: 03/15/18 03:30 03/14/18 07:00 Labs: Laboratory Results - last 24 hr 03/14/18 03/14/18 03/14/18 06:55 07:00 07:00 WBC 3.2 L D RBC 4.41 Hgb 12.8 L Hct 38.9 L MCV 88.2 MCH 29.0 MCHC 32.9 RDW 16.6 H Plt Count 34 L* MPV Gran % 56.7 Lymph % (Auto) 22.6 [place] % (Auto) 17.3 H Eos % (Auto) 2.8 Baso % (Auto) 0.6 Gran # 1.83 Lymph # (Auto) 0.7 L [place] # (Auto) 0.6 Eos # (Auto) 0.1 Baso # (Auto) 0.02 PT INR pCO2 pO2 HCO3 ABG pH ABG Total CO2 ABG O2 Saturation ABG O2 Content ABG Base Excess ABG Hemoglobin ABG Carboxyhemoglobin POC ABG HHb (Measured) ABG Methemoglobin ABG O2 Capacity Hgb O2 Saturation FiO2 Sodium 135 Potassium 3.5 L Chloride 104 Carbon Dioxide 26 Anion Gap 9 L BUN 12 Creatinine 0.5 L Est GFR ( Amer) > 60 Est GFR (Non-Af Amer) > 60 POC Glucose (mg/dL) 271 H Random Glucose 312 H* Calcium 7.8 L Magnesium 1.7 Total Bilirubin 4.6 H AST 39 ALT 30 Alkaline Phosphatase 125 Ammonia Total Protein 5.9 Albumin 2.3 L Globulin 3.6 Albumin/Globulin Ratio 0.6 L LDL Cholesterol Direct 03/14/18 03/14/18 03/14/18 07:00 07:00 11:13 WBC RBC Hgb Hct MCV MCH MCHC RDW Plt Count MPV Gran % Lymph % (Auto) [place] % (Auto) Eos % (Auto) Baso % (Auto) Gran # Lymph # (Auto) [place] # (Auto) Eos # (Auto) Baso # (Auto) PT 20.7 H INR 1.78 H pCO2 pO2 HCO3 ABG pH ABG Total CO2 ABG O2 Saturation ABG O2 Content ABG Base Excess ABG Hemoglobin ABG Carboxyhemoglobin POC ABG HHb (Measured) ABG Methemoglobin ABG O2 Capacity Hgb O2 Saturation FiO2 Sodium Potassium Chloride Carbon Dioxide Anion Gap BUN Creatinine Est GFR ( Amer) Est GFR (Non-Af Amer) POC Glucose (mg/dL) 292 H Random Glucose Calcium Magnesium Total Bilirubin AST ALT Alkaline Phosphatase Ammonia 19 Total Protein Albumin Globulin Albumin/Globulin Ratio LDL Cholesterol Direct 03/14/18 03/14/18 03/14/18 15:43 16:56 21:34 WBC RBC Hgb Hct MCV MCH MCHC RDW Plt Count MPV Gran % Lymph % (Auto) [place] % (Auto) Eos % (Auto) Baso % (Auto) Gran # Lymph # (Auto) [place] # (Auto) Eos # (Auto) Baso # (Auto) PT INR pCO2 pO2 HCO3 ABG pH ABG Total CO2 ABG O2 Saturation ABG O2 Content ABG Base Excess ABG Hemoglobin ABG Carboxyhemoglobin POC ABG HHb (Measured) ABG Methemoglobin ABG O2 Capacity Hgb O2 Saturation FiO2 Sodium Potassium Chloride Carbon Dioxide Anion Gap BUN Creatinine Est GFR ( Amer) Est GFR (Non-Af Amer) POC Glucose (mg/dL) 389 H 361 H 304 H Random Glucose Calcium Magnesium Total Bilirubin AST ALT Alkaline Phosphatase Ammonia Total Protein Albumin Globulin Albumin/Globulin Ratio LDL Cholesterol Direct 03/14/18 03/15/18 03/15/18 23:55 00:10 01:20 WBC RBC Hgb 14.3 Hct 41.9 L MCV MCH MCHC RDW Plt Count MPV Gran % Lymph % (Auto) [place] % (Auto) Eos % (Auto) Baso % (Auto) Gran # Lymph # (Auto) [place] # (Auto) Eos # (Auto) Baso # (Auto) PT INR pCO2 30 L pO2 68.0 L HCO3 20.4 L ABG pH 7.44 ABG Total CO2 21.3 L ABG O2 Saturation 97.5 ABG O2 Content 17.0 ABG Base Excess -2.7 L ABG Hemoglobin 12.9 ABG Carboxyhemoglobin 3.1 H POC ABG HHb (Measured) 2.4 ABG Methemoglobin 1.0 ABG O2 Capacity 17.4 Hgb O2 Saturation 93.6 L FiO2 21.0 Sodium Potassium Chloride Carbon Dioxide Anion Gap BUN Creatinine Est GFR ( Amer) Est GFR (Non-Af Amer) POC Glucose (mg/dL) Random Glucose Calcium Magnesium Total Bilirubin AST ALT Alkaline Phosphatase Ammonia 26 Total Protein Albumin Globulin Albumin/Globulin Ratio LDL Cholesterol Direct 03/15/18 03/15/18 03/15/18 02:33 03:30 03:30 WBC 6.6 D RBC 4.98 Hgb 14.9 Hct 43.5 MCV 87.3 MCH 29.9 MCHC 34.3 RDW 16.4 H Plt Count 48 L* MPV 9.7 Gran % 84.7 H Lymph % (Auto) 8.3 L [place] % (Auto) 6.8 H Eos % (Auto) 0.0 L Baso % (Auto) 0.2 Gran # 5.63 Lymph # (Auto) 0.6 L [place] # (Auto) 0.5 Eos # (Auto) 0.0 Baso # (Auto) 0.01 PT INR pCO2 pO2 HCO3 ABG pH ABG Total CO2 ABG O2 Saturation ABG O2 Content ABG Base Excess ABG Hemoglobin ABG Carboxyhemoglobin POC ABG HHb (Measured) ABG Methemoglobin ABG O2 Capacity Hgb O2 Saturation FiO2 Sodium Potassium Chloride Carbon Dioxide Anion Gap BUN Creatinine Est GFR ( Amer) Est GFR (Non-Af Amer) POC Glucose (mg/dL) 328 H Random Glucose Calcium Magnesium Total Bilirubin AST ALT Alkaline Phosphatase Ammonia Total Protein Albumin Globulin Albumin/Globulin Ratio LDL Cholesterol Direct 118 Assessment & Plan - Assessment and Plan (Free Text) Assessment: 62 year old male presenting with AMS. Code stroke was called. Head CT showed R parietal parenchymal hemorrhage. Plan: - CPK, BNP, Lipid Panel, T3, T4, TSH, Troponin - FFP Stat - Labetalol q4 PRN - do not allow permissive hypertension, keep blood pressure < 140/90 - Phytonadione - Lasix stat - Keep NPO - Swallow eval - NIHSS Stroke Scale - Aspiration precautions, Fall protocol, Neurocheck q1h, Seizure precautions, Swallow eval, PT eval, Vitals checks Dispo: Patient will need ICU level of care. We will monitor closely
[2018-03-15 04:44] LABS: T3 0.62 ng/mL (0.97-1.69)
[2018-03-15 04:54] LABS: ALB/GLOB RATIO 0.7 (1.1-1.8); ALBUMIN 2.9 g/dL (3.0-4.8); ALT/SGPT 23 U/L (7-56); AST/SGOT 46 U/L (17-59); BLOOD UREA NITROGEN 12 mg/dL (7-21); CALCIUM 8.5 mg/dL (8.4-10.5); GFR AFRICAN-AMERICAN > 60; GFR NON-AFRICAN AMERICAN > 60; HDL CHOLESTEROL 61 mg/dL (29-60)
[2018-03-15] MEDS: Pantoprazole 40 mg EC Tab PO SCH ×2 (05:19→10:36)
[2018-03-15] MEDS ORDERED: Pantoprazole 40 mg EC Tab PO SCH (06:00)
--- NOTE | 2018-03-15 06:29 | CP.PCM.PN ---
Subjective - Date & Time of Evaluation Date of Evaluation: 03/15/18 Time of Evaluation: 06:28 - Subjective Subjective: Spoke to patient's as listed in EMR. Obtained consent for FFP. Explained risks and reasons as well as benefits. Patient confirmed that she understood. Objective - Vital Signs/Intake and Output Vital Signs (last 24 hours): Temp Pulse Resp BP Pulse Ox 97.8 F 92 H 18 161/80 H 94 L 03/15/18 00:29 03/15/18 00:29 03/15/18 00:29 03/15/18 03:41 03/15/18 00:29 - Medications Medications: Current Medications Al Hydrox/Mg Hydrox/Simethicone (Maalox Plus 30 Ml) 30 ml PO DAILY PRN PRN Reason: Indigestion / Heartburn Furosemide (Lasix) 40 mg PO DAILY [facility] Last Admin: 03/14/18 10:56 Dose: 40 mg Insulin Human Lispro (Humalog High) 0 units SC ACHS [facility] PRN Reason: Protocol Last Admin: 03/14/18 22:06 Dose: 2 units Insulin Lispro Protam/Lispro Human (Humalog Mix 75/25) 15 units SC BIDAC [facility] Last Admin: 03/14/18 17:26 Dose: Not Given Labetalol HCl (Trandate) 10 mg IV Q4 PRN PRN Reason: Blood Pressure 220/110 & above Lactulose (Enulose) 30 gm PO TID [facility] Last Admin: 03/14/18 17:18 Dose: 20 gm Ondansetron HCl (Zofran Inj) 4 mg IVP Q6H PRN PRN Reason: Nausea/Vomiting Last Admin: 03/15/18 00:14 Dose: 4 mg Pantoprazole Sodium (Protonix Ec Tab) 40 mg PO 0600 [facility] Last Admin: 03/15/18 05:19 Dose: Not Given Rifaximin (Xifaxan) 550 mg PO BID [facility] PRN Reason: Protocol Last Admin: 03/14/18 17:25 Dose: Not Given Spironolactone (Aldactone) 100 mg PO DAILY [facility] Last Admin: 03/14/18 10:51 Dose: 100 mg Sucralfate (Carafate Tab) 1 gm PO 0600,1600 [facility] Last Admin: 03/15/18 05:19 Dose: Not Given - Labs Labs: 03/15/18 03:30 03/15/18 03:30 PT 20.7 SECONDS (9.4-12.5) H 03/14/18 07:00 INR 1.78 (0.93-1.08) H 03/14/18 07:00 APTT 38.3 Seconds (25.1-36.5) H 03/11/18 18:45
--- NOTE | 2018-03-15 06:59 | CP.PCM.PN ---
<Kelly Pang - Last Filed: 03/15/18 14:10> Subjective - Date & Time of Evaluation Date of Evaluation: 03/15/18 Time of Evaluation: 06:58 - Subjective Subjective: Internal Medicine Progress Note: Patient seen and examined at beside. Overnight patient was confused, and an episode of nausea/vomiting. Head CT showed large R parietal intraparenchymal hemorrgahe with intraventricular extension, surrounding edema, mass effect and midline shift. Patient was transferred to the ICU. He is now intubated and sedated as GCS was 3. ROS not obtained. Objective - Vital Signs/Intake and Output Vital Signs (last 24 hours): Temp Pulse Resp BP Pulse Ox 97.8 F 92 H 18 161/80 H 94 L 03/15/18 00:29 03/15/18 00:29 03/15/18 00:29 03/15/18 03:41 03/15/18 00:29 - Medications Medications: Current Medications Al Hydrox/Mg Hydrox/Simethicone (Maalox Plus 30 Ml) 30 ml PO DAILY PRN PRN Reason: Indigestion / Heartburn Furosemide (Lasix) 40 mg PO DAILY [facility] Last Admin: 03/14/18 10:56 Dose: 40 mg Insulin Human Lispro (Humalog High) 0 units SC ACHS [facility] PRN Reason: Protocol Last Admin: 03/14/18 22:06 Dose: 2 units Insulin Lispro Protam/Lispro Human (Humalog Mix 75/25) 15 units SC BIDAC [facility] Last Admin: 03/14/18 17:26 Dose: Not Given Labetalol HCl (Trandate) 10 mg IV Q4 PRN PRN Reason: Blood Pressure 220/110 & above Lactulose (Enulose) 30 gm PO TID [facility] Last Admin: 03/14/18 17:18 Dose: 20 gm Ondansetron HCl (Zofran Inj) 4 mg IVP Q6H PRN PRN Reason: Nausea/Vomiting Last Admin: 03/15/18 00:14 Dose: 4 mg Pantoprazole Sodium (Protonix Ec Tab) 40 mg PO 0600 [facility] Last Admin: 03/15/18 05:19 Dose: Not Given Rifaximin (Xifaxan) 550 mg PO BID [facility] PRN Reason: Protocol Last Admin: 03/14/18 17:25 Dose: Not Given Spironolactone (Aldactone) 100 mg PO DAILY [facility] Last Admin: 03/14/18 10:51 Dose: 100 mg Sucralfate (Carafate Tab) 1 gm PO 0600,1600 [facility] Last Admin: 03/15/18 05:19 Dose: Not Given - Labs Labs: 03/15/18 03:30 03/15/18 03:30 PT 20.7 SECONDS (9.4-12.5) H 03/14/18 07:00 INR 1.78 (0.93-1.08) H 03/14/18 07:00 APTT 38.3 Seconds (25.1-36.5) H 03/11/18 18:45 Assessment and Plan - Assessment and Plan (Free Text) Assessment: 62 year old male with PMH Hep C, cirrhosis, bilateral inguinal hernias, IDDM admitted for evaluation and treatment of Altered mental Status Plan: Hemorrhagic CVA -Patient transferred to ICU -Intubated and sedated -CT head showed large right parietal intraparenchymal hemorrhage with intraventricular extension, surrounding edema is present with mass effect, midline shift, and effacement of the sulci and cisterns -CTA Head and Neck is negative -Hypertonic saline 3% at 40cc/hr -Aim to maintain BP <140/90 -INR 1.78, s/p 2 units FFP and 1 unit of platelets ordered -Neurosurgery consulted, help appreciated -Neurology consulted, help appreciated -Started on Keppra 500mg Q12H IV for seizure ppx -Neuro checks, seizure precautions, aspiration precautions -Prognosis is poor, palliative care consulted Altered Mental Status -Likely 2/2 to Hepatic Encephalopathy. Ammonia 121 on Admission. -Alcohol <10, Utox negative -History of Liver cirrhosis, Hep C -CT Abd/Pelvis (Adm): Cirrhosis with splenomegaly, varices and ascites; chronic calcific pancreatitis; probable ileus, no obstruction; possibly constipation; empty bladder with Serna catheter in wall thickening -Patient received in the ED: 200gm Lactulose MS, 1L Fluid Bolus x 2 -Ammonia is trending down, patient mentation improved after lactulose -Blood cultures showing no growth, urine cultures showing no growth; procal is low -Cotninue on Rifaxamin, Lactulose 30mg PO TID -Continue Lasix 40mg daily and Aldactone 100mg daily -GI on consult, help appreciated -Physical Therapy evaluation -Patient mental status improved after lactulose, SBP not likely; discussed with GI, will hold off paracentesis at this time. Elevated TSH -Started on synthroid Leukopenia -Afebrile -Daily CBC -Chronic in nature Scrotal Swelling -US on last admission negative for torsion -Consider repeat US -Scrotal elevation. Hypomagnesemia -Continue to monitor Thrombocytopenia (Chronic) -Likely 2/2 Hepatic Cirrhosis -No Gross bleeding -Daily CBC -Cont. to Monitor Hx of IDDM -High dose ISS -Accuchecks Q4H -Humalog 75/25 15 units BIDAC -High dose ISS Proph -Protonix 40mg PO daily -Lower extremity dopplers negative for DVT -No anticoagulation in setting of hemorrhagic stroke Plan discussed with Dr Flores <Chetna Flores - Last Filed: 03/16/18 15:24> Objective - Vital Signs/Intake and Output Vital Signs (last 24 hours): Temp Pulse Resp BP Pulse Ox 97 F L 94 H 15 133/70 100 03/15/18 06:30 03/15/18 14:10 03/15/18 08:25 03/15/18 14:00 03/15/18 14:10 - Medications Medications: Current Medications Al Hydrox/Mg Hydrox/Simethicone (Maalox Plus 30 Ml) 30 ml PO DAILY PRN PRN Reason: Indigestion / Heartburn Furosemide (Lasix) 40 mg PO DAILY [facility] Last Admin: 03/15/18 10:36 Dose: 40 mg Propofol (Diprivan) 1,000 mg in 100 mls @ 1.932 mls/hr IV .Q24H PRN; Protocol; 5 MCG/KG/MIN PRN Reason: TITRATE PER MD ORDER Last Admin: 03/15/18 08:00 Dose: 5 mcg/kg/min, 1.932 mls/hr Sodium Chloride (Hypertonic Saline 3%) 500 mls @ 30 mls/hr IV .[id number] [facility] Last Admin: 03/15/18 10:50 Dose: 30 mls/hr Levetiracetam (Keppra 500mg Ivpb) 500 mg in 100 mls @ 400 mls/hr IV Q12 [facility] Last Admin: 03/15/18 14:43 Dose: 400 mls/hr Levetiracetam (Keppra 500mg Ivpb) 500 mg in 100 mls @ 400 mls/hr IVPB STAT STA Stop: 03/15/18 15:08 Insulin Human Lispro (Humalog High) 0 units SC ACHS [facility] PRN Reason: Protocol Last Admin: 03/15/18 11:32 Dose: 10 units Insulin Lispro Protam/Lispro Human (Humalog Mix 75/25) 15 units SC BIDAC [facility] Last Admin: 03/15/18 08:42 Dose: Not Given Labetalol HCl (Trandate) 10 mg IV Q4 PRN PRN Reason: Blood Pressure 220/110 & above Lactulose (Enulose) 30 gm PO TID [facility] Last Admin: 03/15/18 14:49 Dose: 30 gm Levothyroxine Sodium (Synthroid) 50 mcg PO 0600 [facility] Mannitol (Mannitol) 17 gm IV Q8H [facility] Ondansetron HCl (Zofran Inj) 4 mg IVP Q6H PRN PRN Reason: Nausea/Vomiting Last Admin: 03/15/18 00:14 Dose: 4 mg Pantoprazole Sodium (Protonix Ec Tab) 40 mg PO 0600 [facility] Last Admin: 03/15/18 10:36 Dose: 40 mg Rifaximin (Xifaxan) 550 mg PO BID [facility] PRN Reason: Protocol Last Admin: 03/15/18 10:36 Dose: 550 mg Spironolactone (Aldactone) 100 mg PO DAILY [facility] Last Admin: 03/15/18 14:50 Dose: 100 mg Sucralfate (Carafate Tab) 1 gm PO 0600,1600 [facility] Last Admin: 03/15/18 05:19 Dose: Not Given - Labs Labs: 03/15/18 03:30 03/15/18 14:20 PT 20.7 SECONDS (9.4-12.5) H 03/14/18 07:00 INR 1.78 (0.93-1.08) H 03/14/18 07:00 APTT 38.3 Seconds (25.1-36.5) H 03/11/18 18:45 Attending/Attestation - Attestation I have personally seen and examined this patient.: Yes I have fully participated in the care of the patient.: Yes I have reviewed all pertinent clinical information, including history, physical exam and plan: Yes Notes (Text): I have seen and examined the patient at bedside. Agree with the above note with the following additions/ exceptions: Briefly this is 62 year old male with history of end stage liver disease, Known and untreated Hep C, cirrhosis, DM-2, non compliance with medications who was initially admitted for hepatic encephalopathy which was improving. Last night DEVELOPMENTAL WRITING INSTRUCTOR was called and patient was found to have large intra cranial hemorrhage with midline shift. Patient was intubated for airway protection. He was started on Keppra, hypertonic saline and mannitol . He was given FFP and platelets. Target Na is 145-150. Monitor osmolarity. Neurologist and neurosurgeon on board. No neuro intervention planned at this time. Overall prognosis is extremely poor.
--- NOTE | 2018-03-15 07:02 | CT ---
EXAM: CT Angiography Head With Intravenous Contrast CLINICAL HISTORY: 62 years old, male; Condition or disease; Other: Hemmorhagic CVA TECHNIQUE: Axial computed tomographic angiography images of the head with intravenous contrast using CT angiography protocol. All CT scans at this facility use one or more dose reduction techniques, viz.: automated exposure control; ma/kV adjustment per patient size (including targeted exams where dose is matched to indication; i.e. head); or iterative reconstruction technique. MIP reconstructed images were created and reviewed. Coronal and sagittal reformatted images were created and reviewed. CONTRAST: 150 mL of omnipaque 350 administered intravenously. COMPARISON: No relevant prior studies available. FINDINGS: The basilar artery is diminutive although patent. The posterior cerebral arteries are patent. The visualized portions of the internal carotid arteries are patent without significant masses, occlusion, or dissection. The anterior and middle cerebral arteries are patent. No evidence of aneurysm. Again seen is a large area of hemorrhage in the left parietal temporal occipital lobes with intraventricular extension. Mass effect, midline shift, and subtle effacement are present. There is prominent enhancement of the cerebral vessels anterior to the hemorrhage likely related to mass effect. IMPRESSION: No acute vascular findings. EXAM: CT Angiography Neck With Intravenous Contrast EXAM DATE/TIME: 03/15/2018 3:03 AM CLINICAL HISTORY: 62 years old, male; Condition or disease; Other: Hemmorhagic CVA TECHNIQUE: Axial computed tomographic angiography images of the neck with intravenous contrast using CT angiography protocol. All CT scans at this facility use one or more dose reduction techniques, viz.: automated exposure control; ma/kV adjustment per patient size (including targeted exams where dose is matched to indication; i.e. head); or iterative reconstruction technique. MIP reconstructed images were created and reviewed. Coronal and sagittal reformatted images were created and reviewed. CONTRAST: 150 mL of omnipaque 350 administered intravenously. COMPARISON: CT - HEAD W/O CONTRAST 2018-03-15 02:54 FINDINGS: Dominant right vertebral artery is noted. No vertebral artery occlusion or dissection. The common carotid arteries and visualized portions of the internal carotid arteries are normal bilaterally without significant stenosis, occlusion, or dissection. The visualized portions of the subclavian arteries are normal. The airway is patent. No soft tissue abnormality is identified within the neck. Blebs are noted in the upper lungs. IMPRESSION: No acute vascular findings.
[2018-03-15] MEDS ORDERED: Propofol 10 mg/ml 1,000 MG/100 ML VIAL ONE (07:36)
[2018-03-15] MEDS: Propofol 10 mg/ml 1,000 MG/100 ML VIAL IV PRN (08:00)
--- NOTE | 2018-03-15 08:29 | PCM.PROC ---
Procedures Attestation:: I certify that I have explained the specified Operation(s) or Procedure(s), risks, benefits and reasonable alternatives to the Patient and/or other person responsible. The opportunity was given to ask questions and all questions answered - Intubation Time Out Performed: Yes Sedative: Other Laryngoscope: Glidescope ET Tube Size: 7.5 ET Tube Uncuffed: Yes ET Tube Secured at Depth: 23 ET Tube Secured [place]arion: Lips ET Tube Placement Confirmation: Visualized Passing Through Cords, Breath Sounds Equal Bilaterally, No Breath Sounds Over Epigastrum, Confirmation w/Capnometry Patient Tolerated Procedure: Well Procedure Immediate Complications: None
[2018-03-15] MEDS ORDERED: Sodium Chloride 0.9% 1,000 ML IV SCH (08:30)
[2018-03-15] MEDS: Insulin Lispro (HUMAlog) HIGH Coverage SC SCH ×4 (08:40→22:45)
[2018-03-15] MEDS: Insulin Lispro (humaLOG) MIX 75/25(10 ml) SC SCH ×2 (08:42→17:16)
[2018-03-15 09:07] LABS: ARTERIAL BLOOD GAS HCO3 17.2 mmol/L (21-28); ARTERIAL BLOOD GAS HEMOGLOBIN 12.9 g/dL (11.7-17.4); ARTERIAL BLOOD GAS O2 CONTENT 19.2 ML/dl (15-23); ARTERIAL BLOOD GAS O2 SAT 100.9 % (95-98); ARTERIAL BLOOD GAS PCO2 29 mm/Hg (35-45); ARTERIAL BLOOD GAS PH 7.38 (7.35-7.45); ARTERIAL BLOOD GAS TCO2 18.1 mmol.L (22-28)
--- NOTE | 2018-03-15 09:23 | CP.PCM.PN ---
<Ramon Corbin - Last Filed: 03/15/18 09:19> Subjective - Date & Time of Evaluation Date of Evaluation: 03/15/18 Time of Evaluation: 09:19 - Subjective Subjective: 62M seen in ICU for left third digit laceration. Patient is intubated and unresponsive during visit. Per nursing no acute overnight events. Objective - Vital Signs/Intake and Output Vital Signs (last 24 hours): Temp Pulse Resp BP Pulse Ox 97 F L 92 H 15 121/72 100 03/15/18 06:30 03/15/18 08:33 03/15/18 08:25 03/15/18 08:33 03/15/18 08:33 - Medications Medications: Current Medications Al Hydrox/Mg Hydrox/Simethicone (Maalox Plus 30 Ml) 30 ml PO DAILY PRN PRN Reason: Indigestion / Heartburn Furosemide (Lasix) 40 mg PO DAILY [facility] Last Admin: 03/14/18 10:56 Dose: 40 mg Propofol (Diprivan) 1,000 mg in 100 mls @ 1.932 mls/hr IV .Q24H PRN; Protocol; 5 MCG/KG/MIN PRN Reason: TITRATE PER MD ORDER Last Admin: 03/15/18 08:00 Dose: 5 mcg/kg/min, 1.932 mls/hr Sodium Chloride (Sodium Chloride 0.9%) 1,000 mls @ 100 mls/hr IV .Q10H [facility] Last Admin: 03/15/18 08:43 Dose: 100 mls/hr Phytonadione 10 mg/ Sodium (Chloride) 51 mls @ 100 mls/hr IV ONCE ONE Stop: 03/15/18 09:37 Insulin Human Lispro (Humalog High) 0 units SC ACHS [facility] PRN Reason: Protocol Last Admin: 03/15/18 08:40 Dose: 12 units Insulin Lispro Protam/Lispro Human (Humalog Mix 75/25) 15 units SC BIDAC [facility] Last Admin: 03/15/18 08:42 Dose: Not Given Labetalol HCl (Trandate) 10 mg IV Q4 PRN PRN Reason: Blood Pressure 220/110 & above Lactulose (Enulose) 30 gm PO TID [facility] Last Admin: 03/14/18 17:18 Dose: 20 gm Ondansetron HCl (Zofran Inj) 4 mg IVP Q6H PRN PRN Reason: Nausea/Vomiting Last Admin: 03/15/18 00:14 Dose: 4 mg Pantoprazole Sodium (Protonix Ec Tab) 40 mg PO 0600 [facility] Last Admin: 03/15/18 05:19 Dose: Not Given Rifaximin (Xifaxan) 550 mg PO BID [facility] PRN Reason: Protocol Last Admin: 03/14/18 17:25 Dose: Not Given Spironolactone (Aldactone) 100 mg PO DAILY [facility] Last Admin: 03/14/18 10:51 Dose: 100 mg Sucralfate (Carafate Tab) 1 gm PO 0600,1600 [facility] Last Admin: 03/15/18 05:19 Dose: Not Given - Labs Labs: 03/15/18 03:30 03/15/18 03:30 PT 20.7 SECONDS (9.4-12.5) H 03/14/18 07:00 INR 1.78 (0.93-1.08) H 03/14/18 07:00 APTT 38.3 Seconds (25.1-36.5) H 03/11/18 18:45 - Constitutional Appears: Chronically Ill, Other (intubated and unresponsive) - Head Exam Head Exam: ATRAUMATIC, NORMOCEPHALIC - Extremities Exam Additional comments: LE focused exam Vasc: DP/PT pulses palpable 2/4. Temp gradient warm to cool. CFT < 3 sec to all digits. No pedal edema Derm: Superficial laceration noted to distal aspect of L 3rd toe with no evidence of nail involvement or onycholysis. No evidence of deep tissue involvement. Mild sanguinous drainage elicited. No surrounding erythema or cellulitis, no fluctuance. No malodor, no other clinical signs of infection noted Neuro: Unable to determine due to patient's unresponsiveness Ortho: No gross deformities noted Assessment and Plan - Assessment and Plan (Free Text) Assessment: 62M seen in ICU for laceration of left third digit Plan: Pt seen and examined at bedside with attending Dr. Tyler Labs and vitals reviewed - afebrile, absent leukocytosis LE US: No evidence of DVT Toe cleansed with saline and dressed with Optifoam bandage No clinical signs of infection noted, no clinical signs of underlying deep injury No plan for surgical intervention at this time Pt stable from podiatry standpoint, recommend local wound care of bacitracin and bandaid <Richie Tyler - Last Filed: 03/18/18 15:43> Objective - Vital Signs/Intake and Output Vital Signs (last 24 hours): Temp Pulse Resp BP Pulse Ox 98.9 F 95 H 22 146/71 100 03/18/18 12:00 03/18/18 13:29 03/18/18 13:26 03/18/18 13:00 03/18/18 13:26 Intake and Output: 03/18/18 03/18/18 06:59 18:59 Intake Total 591 494 Output Total 500 Balance 91 494 - Medications Medications: Current Medications Propofol (Diprivan) 1,000 mg in 100 mls @ 1.932 mls/hr IV .Q24H PRN; Protocol; 5 MCG/KG/MIN PRN Reason: TITRATE PER MD ORDER Last Titration: 03/16/18 09:30 Dose: 0 mcg/kg/min, 0 mls/hr Sodium Chloride (Hypertonic Saline 3%) 500 mls @ 30 mls/hr IV .[id number] [facility] Last Admin: 03/15/18 10:50 Dose: 30 mls/hr Levetiracetam (Keppra 500mg Ivpb) 500 mg in 100 mls @ 400 mls/hr IV Q12 [facility] Last Admin: 03/18/18 09:50 Dose: 400 mls/hr Insulin Human Regular 100 (units/ Sodium Chloride) 100 mls @ 2 mls/hr IV .Q24H PRN; Protocol; 2 UNITS/HR PRN Reason: TITRATE PER MD ORDER Last Titration: 03/18/18 15:04 Dose: 4 units/hr, 4 mls/hr Acetaminophen (Ofirmev) 1,000 mg in 100 mls @ 400 mls/hr IVPB Q6H PRN PRN Reason: Temperature Stop: 03/19/18 09:48 Last Admin: 03/17/18 09:59 Dose: 400 mls/hr Insulin Human Lispro (Humalog High) 0 units SC ACHS [facility] PRN Reason: Protocol Last Admin: 03/17/18 08:59 Dose: Not Given Insulin Lispro Protam/Lispro Human (Humalog Mix 75/25) 15 units SC BIDAC [facility] Last Admin: 03/17/18 08:59 Dose: Not Given Labetalol HCl (Trandate) 10 mg IV Q4 PRN PRN Reason: Blood Pressure 220/110 & above Lactulose (Enulose) 30 gm PO TID [facility] Last Admin: 03/18/18 13:31 Dose: 30 gm Levothyroxine Sodium (Synthroid) 75 mcg PO 0600 [facility] Last Admin: 03/18/18 06:25 Dose: 75 mcg Mannitol (Mannitol) 17 gm IV Q8H [facility] Last Admin: 03/18/18 14:43 Dose: 17 gm Ondansetron HCl (Zofran Inj) 4 mg IVP Q6H PRN PRN Reason: Nausea/Vomiting Last Admin: 03/15/18 00:14 Dose: 4 mg Pantoprazole Sodium (Protonix Inj) 40 mg IVP DAILY [facility] Last Admin: 03/18/18 09:51 Dose: 40 mg Spironolactone (Aldactone) 100 mg PO DAILY [facility] Last Admin: 03/18/18 09:49 Dose: 100 mg Sucralfate (Carafate Tab) 1 gm PO 0600,1600 [facility] Last Admin: 03/18/18 06:25 Dose: 1 gm - Labs Labs: 03/18/18 09:00 03/18/18 09:00 PT 22.2 SECONDS (9.4-12.5) H 03/18/18 09:00 INR 1.91 (0.93-1.08) H 03/18/18 09:00 APTT 38.3 Seconds (25.1-36.5) H 03/11/18 18:45 Attending/Attestation - Attestation I have personally seen and examined this patient.: Yes I have fully participated in the care of the patient.: Yes I have reviewed all pertinent clinical information, including history, physical exam and plan: Yes
[2018-03-15] MEDS ORDERED: Sodium Chloride 3% 500 ML IV SCH (09:45)
--- NOTE | 2018-03-15 09:52 | CP.CCUPN ---
<Mita Angel - Last Filed: 03/15/18 11:16> CCU Subjective - Physician Review Subjective (Free Text): 03/15/18 10:37 Patient seen and examined at bedside. Pt admitted overnight for AMS, found to have hemorrhagic stroke. Pt remains altered this AM, GCS 3. Intubated. ROS unobtainable as pt is altered. Critical Care Time Spent (in minutes): 120 CCU Objective - Vital Signs / Intake & Output Vital Signs (Last 4 hours): Vital Signs Temp Pulse Resp BP Pulse Ox 03/15/18 08:33 92 H 121/72 100 03/15/18 08:30 92 H 120/72 99 03/15/18 08:27 92 H 125/73 99 03/15/18 08:25 92 H 15 100 03/15/18 08:24 136/73 03/15/18 08:23 93 H 16 100 03/15/18 08:22 93 H 16 100 03/15/18 08:21 135/76 03/15/18 08:20 95 H 16 100 03/15/18 08:19 95 H 15 94 L 03/15/18 08:18 135/77 03/15/18 08:17 92 H 16 98 03/15/18 08:16 92 H 16 100 03/15/18 08:15 124/75 03/15/18 08:14 93 H 17 99 03/15/18 08:13 93 H 18 100 03/15/18 08:12 126/114 H 03/15/18 08:11 92 H 17 97 03/15/18 08:10 100 H 17 99 03/15/18 08:09 129/74 03/15/18 08:08 93 H 16 99 03/15/18 08:07 92 H 16 99 03/15/18 08:06 125/75 03/15/18 08:05 92 H 17 99 03/15/18 08:04 93 H 17 99 03/15/18 08:03 147/68 03/15/18 08:02 95 H 16 98 03/15/18 08:01 102 H 97 03/15/18 08:00 158/86 H 03/15/18 07:59 99 H 17 96 03/15/18 07:58 100 H 22 96 03/15/18 07:57 98 H 151/98 H 91 L 03/15/18 07:56 105 H 23 149/72 95 03/15/18 07:54 116 H 7 L 164/68 H 90 L 03/15/18 07:51 128 H 20 172/113 H 98 03/15/18 07:50 135 H 12 100 03/15/18 07:49 135 H 15 171/97 H 89 L 03/15/18 07:47 101 H 11 L 123/90 99 03/15/18 07:44 92 H 21 138/72 97 03/15/18 07:40 93 H 19 100 03/15/18 06:30 97 F L Intake and Output (Last 8hrs): Intake & Output 03/14/18 03/15/18 03/15/18 22:59 06:59 14:59 Weight 151 lb 4.8 oz - Physical Exam Physical Exam Limitations: Positive for: Altered Mental Status Head: Positive for: Atraumatic, Normocephalic Pupils: Positive for: PERRL. Negative for: Pinpoint Conjunctiva: Positive for: Normal Mouth: Positive for: Moist Mucous Membranes Neck: Positive for: Trachea Midline Respiratory/Chest: Positive for: Clear to Auscultation, Decreased Breath Sounds , Other (intubated) Cardiovascular: Positive for: Regular Rate and Rhythm, Normal S1, S2. Negative for: Murmurs, Tachycardic Abdomen: Positive for: Normal Bowel Sounds. Negative for: Tenderness, Distention, Peritoneal Signs, Rebound, Guarding, Mass/Organomegaly Back: Positive for: Normal Inspection Upper Extremity: Positive for: Normal Inspection. Negative for: Cyanosis, Edema Lower Extremity: Positive for: Normal Inspection, NORMAL PULSES. Negative for: Edema, CALF TENDERNESS Neurological: Positive for: Other (GCS 3) Skin: Positive for: Warm, Dry, Normal Color. Negative for: Rashes Psychiatric: Positive for: Other (altered) - Medications Active Medications: Active Medications Generic Name Dose Route Start Last Admin Trade Name Freq PRN Reason Stop Dose Admin Al Hydrox/Mg Hydrox/Simethicone 30 ml 03/15/18 10:00 Maalox Plus 30 Ml PO DAILY PRN Indigestion / Heartburn Furosemide 40 mg 03/14/18 10:00 03/14/18 10:56 Lasix PO 40 mg DAILY KAVIN Administration Propofol 1,000 mg in 100 mls @ 1.932 mls/hr 03/15/18 08:00 03/15/18 08:00 Diprivan IV 5 mcg/kg/min .Q24H PRN 1.932 mls/hr TITRATE PER MD ORDER Administration Protocol 5 MCG/KG/MIN Sodium Chloride 1,000 mls @ 100 mls/hr 03/15/18 08:30 03/15/18 08:43 Sodium Chloride 0.9% IV 100 mls/hr .Q10H KAVIN Administration Sodium Chloride 500 mls @ 30 mls/hr 03/15/18 09:45 Hypertonic Saline 3% IV .[id number] [facility] Insulin Human Lispro 0 units 03/13/18 11:30 03/15/18 08:40 Humalog High SC 12 units ACHS [facility] Administration Protocol Insulin Lispro Protam/Lispro Human 15 units 03/14/18 16:30 03/15/18 08:42 Humalog Mix 75/25 SC Not Given BIDAC [facility] Labetalol HCl 10 mg 03/15/18 03:08 Trandate IV Q4 PRN Blood Pressure 220/110 & above Lactulose 30 gm 03/13/18 10:00 03/14/18 17:18 Enulose PO 20 gm TID KAVIN Administration Ondansetron HCl 4 mg 03/14/18 23:32 03/15/18 00:14 Zofran Inj IVP 4 mg Q6H PRN Administration Nausea/Vomiting Pantoprazole Sodium 40 mg 03/14/18 06:00 03/15/18 05:19 Protonix Ec Tab PO Not Given 0600 [facility] Rifaximin 550 mg 03/12/18 12:00 03/14/18 17:25 Xifaxan PO Not Given BID [facility] Protocol Spironolactone 100 mg 03/12/18 10:00 03/14/18 10:51 Aldactone PO 100 mg DAILY [facility] Administration Sucralfate 1 gm 03/14/18 16:00 03/15/18 05:19 Carafate Tab PO Not Given 0600,1600 [facility] - Patient Studies Lab Studies: Lab Studies 03/15/18 03/15/18 03/15/18 Range/Units 09:00 08:37 03:30 WBC (4.5-11.0) 10^3/ul RBC (3.5-6.1) 10^6/uL Hgb (14.0-18.0) g/dL Hct (42.0-52.0) % MCV (80.0-105.0) fl MCH (25.0-35.0) pg MCHC (31.0-37.0) g/dl RDW (11.5-14.5) % Plt Count (120.0-450.0) 10^3/uL MPV (7.0-11.0) fl Gran % (50.0-68.0) % Lymph % (Auto) (22.0-35.0) % Gilmer % (Auto) (1.0-6.0) % Eos % (Auto) (1.5-5.0) % Baso % (Auto) (0.0-3.0) % Gran # (1.4-6.5) Lymph # (Auto) (1.2-3.4) Gilmer # (Auto) (0.1-0.6) Eos # (Auto) (0.0-0.7) Baso # (Auto) (0.0-2.0) K/mm3 ESR (0.00-15.0) mm/hr pCO2 29 L (35-45) mm/Hg pO2 511.0 H (80-100) mm/Hg HCO3 17.2 L (21-28) mmol/L ABG pH 7.38 (7.35-7.45) ABG Total CO2 18.1 L (22-28) mmol.L ABG O2 Saturation 100.9 H (95-98) % ABG O2 Content 19.2 (15-23) ML/dl ABG Base Excess -6.7 L (-2.0-3.0) mmol/L ABG Hemoglobin 12.9 (11.7-17.4) g/dL ABG Carboxyhemoglobin 1.9 H (0.5-1.5) % POC ABG HHb (Measured) -0.9 L (0-5) % ABG Methemoglobin 1.1 (0.0-3.0) % ABG O2 Capacity 19.0 (16-24) mL/dl Hgb O2 Saturation 97.9 (95.0-98.0) % FiO2 100.0 % Sodium (132-148) mmol/L Potassium (3.6-5.0) mmol/L Chloride (98-107) mmol/L Carbon Dioxide (21-33) mmol/L Anion Gap (10-20) BUN (7-21) mg/dL Creatinine (0.8-1.5) mg/dl Est GFR ( Amer) Est GFR (Non-Af Amer) POC Glucose (mg/dL) 369 H (65-110) mg/dL Random Glucose (70-110) mg/dL Calcium (8.4-10.5) mg/dL Total Bilirubin (0.2-1.3) mg/dL AST (17-59) U/L ALT (7-56) U/L Alkaline Phosphatase (38-126) U/L Ammonia (9-33) umol/L Total Creatine Kinase (35-230) U/L Troponin I ng/mL NT-Pro-B Natriuret Pep (0-450) pg/mL Total Protein (5.8-8.3) g/dL Albumin (3.0-4.8) g/dL Globulin gm/dL Albumin/Globulin Ratio (1.1-1.8) Triglycerides (35-160) mg/dL Cholesterol (130-200) mg/dL LDL Cholesterol Direct (0-129) mg/dL HDL Cholesterol (29-60) mg/dL Thyroxine (T4) (5.5-11.0) ug/dL Total T3 (0.97-1.69) ng/mL TSH 3rd Generation (0.46-4.68) mIU/mL Blood Type O POSITIVE Antibody Screen Negative BBK History Checked Patient has bt 03/15/18 03/15/18 03/15/18 Range/Units 03:30 03:30 03:30 WBC 6.6 D (4.5-11.0) 10^3/ul RBC 4.98 (3.5-6.1) 10^6/uL Hgb 14.9 (14.0-18.0) g/dL Hct 43.5 (42.0-52.0) % MCV 87.3 (80.0-105.0) fl MCH 29.9 (25.0-35.0) pg MCHC 34.3 (31.0-37.0) g/dl RDW 16.4 H (11.5-14.5) % Plt Count 48 L* (120.0-450.0) 10^3/uL MPV 9.7 (7.0-11.0) fl Gran % 84.7 H (50.0-68.0) % Lymph % (Auto) 8.3 L (22.0-35.0) % Gilmer % (Auto) 6.8 H (1.0-6.0) % Eos % (Auto) 0.0 L (1.5-5.0) % Baso % (Auto) 0.2 (0.0-3.0) % Gran # 5.63 (1.4-6.5) Lymph # (Auto) 0.6 L (1.2-3.4) Gilmer # (Auto) 0.5 (0.1-0.6) Eos # (Auto) 0.0 (0.0-0.7) Baso # (Auto) 0.01 (0.0-2.0) K/mm3 ESR 16 H (0.00-15.0) mm/hr pCO2 (35-45) mm/Hg pO2 (80-100) mm/Hg HCO3 (21-28) mmol/L ABG pH (7.35-7.45) ABG Total CO2 (22-28) mmol.L ABG O2 Saturation (95-98) % ABG O2 Content (15-23) ML/dl ABG Base Excess (-2.0-3.0) mmol/L ABG Hemoglobin (11.7-17.4) g/dL ABG Carboxyhemoglobin (0.5-1.5) % POC ABG HHb (Measured) (0-5) % ABG Methemoglobin (0.0-3.0) % ABG O2 Capacity (16-24) mL/dl Hgb O2 Saturation (95.0-98.0) % FiO2 % Sodium 143 (132-148) mmol/L Potassium 4.3 (3.6-5.0) mmol/L Chloride 107 (98-107) mmol/L Carbon Dioxide 22 (21-33) mmol/L Anion Gap 19 (10-20) BUN 12 (7-21) mg/dL Creatinine 0.5 L (0.8-1.5) mg/dl Est GFR ( Amer) > 60 Est GFR (Non-Af Amer) > 60 POC Glucose (mg/dL) (65-110) mg/dL Random Glucose 334 H* (70-110) mg/dL Calcium 8.5 (8.4-10.5) mg/dL Total Bilirubin 6.3 H (0.2-1.3) mg/dL AST 46 (17-59) U/L ALT 23 (7-56) U/L Alkaline Phosphatase 153 H D (38-126) U/L Ammonia (9-33) umol/L Total Creatine Kinase 88 (35-230) U/L Troponin I < 0.01 ng/mL NT-Pro-B Natriuret Pep 197 (0-450) pg/mL Total Protein 7.0 (5.8-8.3) g/dL Albumin 2.9 L (3.0-4.8) g/dL Globulin 4.1 gm/dL Albumin/Globulin Ratio 0.7 L (1.1-1.8) Triglycerides 100 (35-160) mg/dL Cholesterol 254 H (130-200) mg/dL LDL Cholesterol Direct 118 (0-129) mg/dL HDL Cholesterol 61 H (29-60) mg/dL Thyroxine (T4) 6.6 (5.5-11.0) ug/dL Total T3 0.62 L (0.97-1.69) ng/mL TSH 3rd Generation 5.79 H (0.46-4.68) mIU/mL Blood Type Antibody Screen BBK History Checked 03/15/18 03/15/18 03/15/18 Range/Units 02:33 01:20 00:10 WBC (4.5-11.0) 10^3/ul RBC (3.5-6.1) 10^6/uL Hgb 14.3 (14.0-18.0) g/dL Hct 41.9 L (42.0-52.0) % MCV (80.0-105.0) fl MCH (25.0-35.0) pg MCHC (31.0-37.0) g/dl RDW (11.5-14.5) % Plt Count (120.0-450.0) 10^3/uL MPV (7.0-11.0) fl Gran % (50.0-68.0) % Lymph % (Auto) (22.0-35.0) % Gilmer % (Auto) (1.0-6.0) % Eos % (Auto) (1.5-5.0) % Baso % (Auto) (0.0-3.0) % Gran # (1.4-6.5) Lymph # (Auto) (1.2-3.4) Gilmer # (Auto) (0.1-0.6) Eos # (Auto) (0.0-0.7) Baso # (Auto) (0.0-2.0) K/mm3 ESR (0.00-15.0) mm/hr pCO2 30 L (35-45) mm/Hg pO2 68.0 L (80-100) mm/Hg HCO3 20.4 L (21-28) mmol/L ABG pH 7.44 (7.35-7.45) ABG Total CO2 21.3 L (22-28) mmol.L ABG O2 Saturation 97.5 (95-98) % ABG O2 Content 17.0 (15-23) ML/dl ABG Base Excess -2.7 L (-2.0-3.0) mmol/L ABG Hemoglobin 12.9 (11.7-17.4) g/dL ABG Carboxyhemoglobin 3.1 H (0.5-1.5) % POC ABG HHb (Measured) 2.4 (0-5) % ABG Methemoglobin 1.0 (0.0-3.0) % ABG O2 Capacity 17.4 (16-24) mL/dl Hgb O2 Saturation 93.6 L (95.0-98.0) % FiO2 21.0 % Sodium (132-148) mmol/L Potassium (3.6-5.0) mmol/L Chloride (98-107) mmol/L Carbon Dioxide (21-33) mmol/L Anion Gap (10-20) BUN (7-21) mg/dL Creatinine (0.8-1.5) mg/dl Est GFR ( Amer) Est GFR (Non-Af Amer) POC Glucose (mg/dL) 328 H (65-110) mg/dL Random Glucose (70-110) mg/dL Calcium (8.4-10.5) mg/dL Total Bilirubin (0.2-1.3) mg/dL AST (17-59) U/L ALT (7-56) U/L Alkaline Phosphatase (38-126) U/L Ammonia (9-33) umol/L Total Creatine Kinase (35-230) U/L Troponin I ng/mL NT-Pro-B Natriuret Pep (0-450) pg/mL Total Protein (5.8-8.3) g/dL Albumin (3.0-4.8) g/dL Globulin gm/dL Albumin/Globulin Ratio (1.1-1.8) Triglycerides (35-160) mg/dL Cholesterol (130-200) mg/dL LDL Cholesterol Direct (0-129) mg/dL HDL Cholesterol (29-60) mg/dL Thyroxine (T4) (5.5-11.0) ug/dL Total T3 (0.97-1.69) ng/mL TSH 3rd Generation (0.46-4.68) mIU/mL Blood Type Antibody Screen BBK History Checked 03/14/18 03/14/18 03/14/18 Range/Units 23:55 21:34 16:56 WBC (4.5-11.0) 10^3/ul RBC (3.5-6.1) 10^6/uL Hgb (14.0-18.0) g/dL Hct (42.0-52.0) % MCV (80.0-105.0) fl MCH (25.0-35.0) pg MCHC (31.0-37.0) g/dl RDW (11.5-14.5) % Plt Count (120.0-450.0) 10^3/uL MPV (7.0-11.0) fl Gran % (50.0-68.0) % Lymph % (Auto) (22.0-35.0) % Gilmer % (Auto) (1.0-6.0) % Eos % (Auto) (1.5-5.0) % Baso % (Auto) (0.0-3.0) % Gran # (1.4-6.5) Lymph # (Auto) (1.2-3.4) Gilmer # (Auto) (0.1-0.6) Eos # (Auto) (0.0-0.7) Baso # (Auto) (0.0-2.0) K/mm3 ESR (0.00-15.0) mm/hr pCO2 (35-45) mm/Hg pO2 (80-100) mm/Hg HCO3 (21-28) mmol/L ABG pH (7.35-7.45) ABG Total CO2 (22-28) mmol.L ABG O2 Saturation (95-98) % ABG O2 Content (15-23) ML/dl ABG Base Excess (-2.0-3.0) mmol/L ABG Hemoglobin (11.7-17.4) g/dL ABG Carboxyhemoglobin (0.5-1.5) % POC ABG HHb (Measured) (0-5) % ABG Methemoglobin (0.0-3.0) % ABG O2 Capacity (16-24) mL/dl Hgb O2 Saturation (95.0-98.0) % FiO2 % Sodium (132-148) mmol/L Potassium (3.6-5.0) mmol/L Chloride (98-107) mmol/L Carbon Dioxide (21-33) mmol/L Anion Gap (10-20) BUN (7-21) mg/dL Creatinine (0.8-1.5) mg/dl Est GFR ( Amer) Est GFR (Non-Af Amer) POC Glucose (mg/dL) 304 H 361 H (65-110) mg/dL Random Glucose (70-110) mg/dL Calcium (8.4-10.5) mg/dL Total Bilirubin (0.2-1.3) mg/dL AST (17-59) U/L ALT (7-56) U/L Alkaline Phosphatase (38-126) U/L Ammonia 26 (9-33) umol/L Total Creatine Kinase (35-230) U/L Troponin I ng/mL NT-Pro-B Natriuret Pep (0-450) pg/mL Total Protein (5.8-8.3) g/dL Albumin (3.0-4.8) g/dL Globulin gm/dL Albumin/Globulin Ratio (1.1-1.8) Triglycerides (35-160) mg/dL Cholesterol (130-200) mg/dL LDL Cholesterol Direct (0-129) mg/dL HDL Cholesterol (29-60) mg/dL Thyroxine (T4) (5.5-11.0) ug/dL Total T3 (0.97-1.69) ng/mL TSH 3rd Generation (0.46-4.68) mIU/mL Blood Type Antibody Screen BBK History Checked 03/14/18 03/14/18 03/14/18 Range/Units 15:43 11:13 06:55 WBC (4.5-11.0) 10^3/ul RBC (3.5-6.1) 10^6/uL Hgb (14.0-18.0) g/dL Hct (42.0-52.0) % MCV (80.0-105.0) fl MCH (25.0-35.0) pg MCHC (31.0-37.0) g/dl RDW (11.5-14.5) % Plt Count (120.0-450.0) 10^3/uL MPV (7.0-11.0) fl Gran % (50.0-68.0) % Lymph % (Auto) (22.0-35.0) % Gilmer % (Auto) (1.0-6.0) % Eos % (Auto) (1.5-5.0) % Baso % (Auto) (0.0-3.0) % Gran # (1.4-6.5) Lymph # (Auto) (1.2-3.4) Gilmer # (Auto) (0.1-0.6) Eos # (Auto) (0.0-0.7) Baso # (Auto) (0.0-2.0) K/mm3 ESR (0.00-15.0) mm/hr pCO2 (35-45) mm/Hg pO2 (80-100) mm/Hg HCO3 (21-28) mmol/L ABG pH (7.35-7.45) ABG Total CO2 (22-28) mmol.L ABG O2 Saturation (95-98) % ABG O2 Content (15-23) ML/dl ABG Base Excess (-2.0-3.0) mmol/L ABG Hemoglobin (11.7-17.4) g/dL ABG Carboxyhemoglobin (0.5-1.5) % POC ABG HHb (Measured) (0-5) % ABG Methemoglobin (0.0-3.0) % ABG O2 Capacity (16-24) mL/dl Hgb O2 Saturation (95.0-98.0) % FiO2 % Sodium (132-148) mmol/L Potassium (3.6-5.0) mmol/L Chloride (98-107) mmol/L Carbon Dioxide (21-33) mmol/L Anion Gap (10-20) BUN (7-21) mg/dL Creatinine (0.8-1.5) mg/dl Est GFR ( Amer) Est GFR (Non-Af Amer) POC Glucose (mg/dL) 389 H 292 H 271 H (65-110) mg/dL Random Glucose (70-110) mg/dL Calcium (8.4-10.5) mg/dL Total Bilirubin (0.2-1.3) mg/dL AST (17-59) U/L ALT (7-56) U/L Alkaline Phosphatase (38-126) U/L Ammonia (9-33) umol/L Total Creatine Kinase (35-230) U/L Troponin I ng/mL NT-Pro-B Natriuret Pep (0-450) pg/mL Total Protein (5.8-8.3) g/dL Albumin (3.0-4.8) g/dL Globulin gm/dL Albumin/Globulin Ratio (1.1-1.8) Triglycerides (35-160) mg/dL Cholesterol (130-200) mg/dL LDL Cholesterol Direct (0-129) mg/dL HDL Cholesterol (29-60) mg/dL Thyroxine (T4) (5.5-11.0) ug/dL Total T3 (0.97-1.69) ng/mL TSH 3rd Generation (0.46-4.68) mIU/mL Blood Type Antibody Screen BBK History Checked Laboratory Results - last 24 hr 03/14/18 03/14/18 03/14/18 06:55 11:13 15:43 WBC RBC Hgb Hct MCV MCH MCHC RDW Plt Count MPV Gran % Lymph % (Auto) Gilmer % (Auto) Eos % (Auto) Baso % (Auto) Gran # Lymph # (Auto) [place]mer # (Auto) Eos # (Auto) Baso # (Auto) ESR pCO2 pO2 HCO3 ABG pH ABG Total CO2 ABG O2 Saturation ABG O2 Content ABG Base Excess ABG Hemoglobin ABG Carboxyhemoglobin POC ABG HHb (Measured) ABG Methemoglobin ABG O2 Capacity Hgb O2 Saturation FiO2 Sodium Potassium Chloride Carbon Dioxide Anion Gap BUN Creatinine Est GFR ( Amer) Est GFR (Non-Af Amer) POC Glucose (mg/dL) 271 H 292 H 389 H Random Glucose Calcium Total Bilirubin AST ALT Alkaline Phosphatase Ammonia Total Creatine Kinase Troponin I NT-Pro-B Natriuret Pep Total Protein Albumin Globulin Albumin/Globulin Ratio Triglycerides Cholesterol LDL Cholesterol Direct HDL Cholesterol Thyroxine (T4) Total T3 TSH 3rd Generation Blood Type Antibody Screen BBK History Checked 03/14/18 03/14/18 03/14/18 16:56 21:34 23:55 WBC RBC Hgb Hct MCV MCH MCHC RDW Plt Count MPV Gran % Lymph % (Auto) [place]mer % (Auto) Eos % (Auto) Baso % (Auto) Gran # Lymph # (Auto) [place]mer # (Auto) Eos # (Auto) Baso # (Auto) ESR pCO2 pO2 HCO3 ABG pH ABG Total CO2 ABG O2 Saturation ABG O2 Content ABG Base Excess ABG Hemoglobin ABG Carboxyhemoglobin POC ABG HHb (Measured) ABG Methemoglobin ABG O2 Capacity Hgb O2 Saturation FiO2 Sodium Potassium Chloride Carbon Dioxide Anion Gap BUN Creatinine Est GFR ( Amer) Est GFR (Non-Af Amer) POC Glucose (mg/dL) 361 H 304 H Random Glucose Calcium Total Bilirubin AST ALT Alkaline Phosphatase Ammonia 26 Total Creatine Kinase Troponin I NT-Pro-B Natriuret Pep Total Protein Albumin Globulin Albumin/Globulin Ratio Triglycerides Cholesterol LDL Cholesterol Direct HDL Cholesterol Thyroxine (T4) Total T3 TSH 3rd Generation Blood Type Antibody Screen BBK History Checked 03/15/18 03/15/18 03/15/18 00:10 01:20 02:33 WBC RBC Hgb 14.3 Hct 41.9 L MCV MCH MCHC RDW Plt Count MPV Gran % Lymph % (Auto) [place]mer % (Auto) Eos % (Auto) Baso % (Auto) Gran # Lymph # (Auto) [place]mer # (Auto) Eos # (Auto) Baso # (Auto) ESR pCO2 30 L pO2 68.0 L HCO3 20.4 L ABG pH 7.44 ABG Total CO2 21.3 L ABG O2 Saturation 97.5 ABG O2 Content 17.0 ABG Base Excess -2.7 L ABG Hemoglobin 12.9 ABG Carboxyhemoglobin 3.1 H POC ABG HHb (Measured) 2.4 ABG Methemoglobin 1.0 ABG O2 Capacity 17.4 Hgb O2 Saturation 93.6 L FiO2 21.0 Sodium Potassium Chloride Carbon Dioxide Anion Gap BUN Creatinine Est GFR ( Amer) Est GFR (Non-Af Amer) POC Glucose (mg/dL) 328 H Random Glucose Calcium Total Bilirubin AST ALT Alkaline Phosphatase Ammonia Total Creatine Kinase Troponin I NT-Pro-B Natriuret Pep Total Protein Albumin Globulin Albumin/Globulin Ratio Triglycerides Cholesterol LDL Cholesterol Direct HDL Cholesterol Thyroxine (T4) Total T3 TSH 3rd Generation Blood Type Antibody Screen BBK History Checked 03/15/18 03/15/18 03/15/18 03:30 03:30 03:30 WBC 6.6 D RBC 4.98 Hgb 14.9 Hct 43.5 MCV 87.3 MCH 29.9 MCHC 34.3 RDW 16.4 H Plt Count 48 L* MPV 9.7 Gran % 84.7 H Lymph % (Auto) 8.3 L Gilmer % (Auto) 6.8 H Eos % (Auto) 0.0 L Baso % (Auto) 0.2 Gran # 5.63 Lymph # (Auto) 0.6 L Gilmer # (Auto) 0.5 Eos # (Auto) 0.0 Baso # (Auto) 0.01 ESR 16 H pCO2 pO2 HCO3 ABG pH ABG Total CO2 ABG O2 Saturation ABG O2 Content ABG Base Excess ABG Hemoglobin ABG Carboxyhemoglobin POC ABG HHb (Measured) ABG Methemoglobin ABG O2 Capacity Hgb O2 Saturation FiO2 Sodium 143 Potassium 4.3 Chloride 107 Carbon Dioxide 22 Anion Gap 19 BUN 12 Creatinine 0.5 L Est GFR ( Amer) > 60 Est GFR (Non-Af Amer) > 60 POC Glucose (mg/dL) Random Glucose 334 H* Calcium 8.5 Total Bilirubin 6.3 H AST 46 ALT 23 Alkaline Phosphatase 153 H D Ammonia Total Creatine Kinase 88 Troponin I < 0.01 NT-Pro-B Natriuret Pep 197 Total Protein 7.0 Albumin 2.9 L Globulin 4.1 Albumin/Globulin Ratio 0.7 L Triglycerides 100 Cholesterol 254 H LDL Cholesterol Direct 118 HDL Cholesterol 61 H Thyroxine (T4) 6.6 Total T3 0.62 L TSH 3rd Generation 5.79 H Blood Type Antibody Screen BBK History Checked 03/15/18 03/15/18 03/15/18 03:30 08:37 09:00 WBC RBC Hgb Hct MCV MCH MCHC RDW Plt Count MPV Gran % Lymph % (Auto) [place] % (Auto) Eos % (Auto) Baso % (Auto) Gran # Lymph # (Auto) [place] # (Auto) Eos # (Auto) Baso # (Auto) ESR pCO2 29 L pO2 511.0 H HCO3 17.2 L ABG pH 7.38 ABG Total CO2 18.1 L ABG O2 Saturation 100.9 H ABG O2 Content 19.2 ABG Base Excess -6.7 L ABG Hemoglobin 12.9 ABG Carboxyhemoglobin 1.9 H POC ABG HHb (Measured) -0.9 L ABG Methemoglobin 1.1 ABG O2 Capacity 19.0 Hgb O2 Saturation 97.9 FiO2 100.0 Sodium Potassium Chloride Carbon Dioxide Anion Gap BUN Creatinine Est GFR ( Amer) Est GFR (Non-Af Amer) POC Glucose (mg/dL) 369 H Random Glucose Calcium Total Bilirubin AST ALT Alkaline Phosphatase Ammonia Total Creatine Kinase Troponin I NT-Pro-B Natriuret Pep Total Protein Albumin Globulin Albumin/Globulin Ratio Triglycerides Cholesterol LDL Cholesterol Direct HDL Cholesterol Thyroxine (T4) Total T3 TSH 3rd Generation Blood Type O POSITIVE Antibody Screen Negative BBK History Checked Patient has bt EKG/Cardiology Studies: Cardiology / EKG Studies 03/14/18 14:24 EKG [ELECTROCARDIOGRAM] Stat Comment: Reason For Exam: epigastric pain Fingerstick Blood Sugar Results: 369 Review of Systems - Review of Systems Systems not reviewed;Unavailable: Altered Mental Status Critical Care Progress Note - Ventilator Checklist Head of Bed 30 Degrees: Yes Daily Sedation Vacation: Yes Daily Assessment of Readiness to Wean: Yes PUD Prophalyxis: Yes DVT Prophylaxis: Yes - Vent Settings MODE:: PRVC TIDAL VOLUME:: 450 RESP RATE:: 16 FIO2:: 40 PEEP:: 5 - Prophylaxis GI Prophylaxis GI: PPI - Prophylaxis DVT Prophylaxis DVT: SCDs - Nutrition Nutrition: Nutrition Category Date Time Status NPO Diet [DIET] Diets 03/15/18 Breakfast Ordered Assessment/Plan - Assessment and Plan (Free Text) Assessment: 62 year old male with PMH Hepatitis C, cirrhosis, DM, noncompliance, presents for AMS, attributed to hepatic encephalopathy, improved with lactulose. 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 - Hx of hepatic encephalopathy. On lactulose and rifaximin - palliative consult. F/u recs. - Hold anticoagulation in setting of hemorrhagic CVA. CV: - Maintain MAP>65 - HD stable Pulm: - intubated on PRVC settings - sedated on Propofol - maintain sat > 92% GI: - NPO - Protonix for GI PPX Renal: - Monitor electrolytes and renal function ID: - afebrile, no leukocytosis - monitor Endo: - TSH elevated, started on synthroid - hx of DM - ISS - Maintain glucose at 140 -160 PPX: Protonix, 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) Case seen and discussed with Dr Otero. Mita Angel PGY1 - Date & Time Date: 03/15/18 Time: 11:16 <Fernando Otero - Last Filed: 03/15/18 11:32> CCU Objective - Vital Signs / Intake & Output Vital Signs (Last 4 hours): Vital Signs Pulse Resp BP Pulse Ox 03/15/18 10:36 104/73 03/15/18 08:33 92 H 121/72 100 03/15/18 08:30 92 H 120/72 99 03/15/18 08:27 92 H 125/73 99 03/15/18 08:25 92 H 15 100 03/15/18 08:24 136/73 03/15/18 08:23 93 H 16 100 03/15/18 08:22 93 H 16 100 03/15/18 08:21 135/76 03/15/18 08:20 95 H 16 100 03/15/18 08:19 95 H 15 94 L 03/15/18 08:18 135/77 03/15/18 08:17 92 H 16 98 03/15/18 08:16 92 H 16 100 03/15/18 08:15 124/75 03/15/18 08:14 93 H 17 99 03/15/18 08:13 93 H 18 100 03/15/18 08:12 126/114 H 05/05/18 08:11 92 H 17 97 03/15/18 08:10 100 H 17 99 03/15/18 08:09 129/74 03/15/18 08:08 93 H 16 99 03/15/18 08:07 92 H 16 99 03/15/18 08:06 125/75 03/15/18 08:05 92 H 17 99 03/15/18 08:04 93 H 17 99 03/15/18 08:03 147/68 03/15/18 08:02 95 H 16 98 03/15/18 08:01 102 H 97 03/15/18 08:00 158/86 H 03/15/18 07:59 99 H 17 96 03/15/18 07:58 100 H 22 96 03/15/18 07:57 98 H 151/98 H 91 L 03/15/18 07:56 105 H 23 149/72 95 03/15/18 07:54 116 H 7 L 164/68 H 90 L 03/15/18 07:51 128 H 20 172/113 H 98 03/15/18 07:50 135 H 12 100 03/15/18 07:49 135 H 15 171/97 H 89 L 03/15/18 07:47 101 H 11 L 123/90 99 03/15/18 07:44 92 H 21 138/72 97 03/15/18 07:40 93 H 19 100 Intake and Output (Last 8hrs): Intake & Output 03/14/18 03/15/18 03/15/18 22:59 06:59 14:59 Weight 151 lb 4.8 oz - Medications Active Medications: Active Medications Generic Name Dose Route Start Last Admin Trade Name Freq PRN Reason Stop Dose Admin Al Hydrox/Mg Hydrox/Simethicone 30 ml 03/15/18 10:00 Maalox Plus 30 Ml PO DAILY PRN Indigestion / Heartburn Furosemide 40 mg 03/14/18 10:00 03/15/18 10:36 Lasix PO 40 mg DAILY KAVIN Administration Propofol 1,000 mg in 100 mls @ 1.932 mls/hr 03/15/18 08:00 03/15/18 08:00 Diprivan IV 5 mcg/kg/min .Q24H PRN 1.932 mls/hr TITRATE PER MD ORDER Administration Protocol 5 MCG/KG/MIN Sodium Chloride 500 mls @ 30 mls/hr 03/15/18 09:45 03/15/18 10:50 Hypertonic Saline 3% IV 30 mls/hr .[id number] KAVIN Administration Insulin Human Lispro 0 units 03/13/18 11:30 03/15/18 08:40 Humalog High SC 12 units ACHS KAVIN Administration Protocol Insulin Lispro Protam/Lispro Human 15 units 03/14/18 16:30 03/15/18 08:42 Humalog Mix 75/25 SC Not Given BIDAC KAVIN Labetalol HCl 10 mg 03/15/18 03:08 Trandate IV Q4 PRN Blood Pressure 220/110 & above Lactulose 30 gm 03/13/18 10:00 03/15/18 10:36 Enulose PO 30 gm TID KAVIN Administration Levothyroxine Sodium 50 mcg 03/16/18 06:00 Synthroid PO 0600 [facility] Ondansetron HCl 4 mg 03/14/18 23:32 03/15/18 00:14 Zofran Inj IVP 4 mg Q6H PRN Administration Nausea/Vomiting Pantoprazole Sodium 40 mg 03/14/18 06:00 03/15/18 10:36 Protonix Ec Tab PO 40 mg 0600 [facility] Administration Rifaximin 550 mg 03/12/18 12:00 03/15/18 10:36 Xifaxan PO 550 mg BID KAVIN Administration Protocol Spironolactone 100 mg 03/12/18 10:00 03/15/18 09:52 Aldactone PO Not Given DAILY [facility] Sucralfate 1 gm 03/14/18 16:00 03/15/18 05:19 Carafate Tab PO Not Given [id number] [facility] - Patient Studies Lab Studies: Lab Studies 03/15/18 03/15/18 03/15/18 Range/Units 11:06 09:00 08:37 WBC (4.5-11.0) 10^3/ul RBC (3.5-6.1) 10^6/uL Hgb (14.0-18.0) g/dL Hct (42.0-52.0) % MCV (80.0-105.0) fl MCH (25.0-35.0) pg MCHC (31.0-37.0) g/dl RDW (11.5-14.5) % Plt Count (120.0-450.0) 10^3/uL MPV (7.0-11.0) fl Gran % (50.0-68.0) % Lymph % (Auto) (22.0-35.0) % Gilmer % (Auto) (1.0-6.0) % Eos % (Auto) (1.5-5.0) % Baso % (Auto) (0.0-3.0) % Gran # (1.4-6.5) Lymph # (Auto) (1.2-3.4) Gilmer # (Auto) (0.1-0.6) Eos # (Auto) (0.0-0.7) Baso # (Auto) (0.0-2.0) K/mm3 ESR (0.00-15.0) mm/hr pCO2 29 L (35-45) mm/Hg pO2 511.0 H (80-100) mm/Hg HCO3 17.2 L (21-28) mmol/L ABG pH 7.38 (7.35-7.45) ABG Total CO2 18.1 L (22-28) mmol.L ABG O2 Saturation 100.9 H (95-98) % ABG O2 Content 19.2 (15-23) ML/dl ABG Base Excess -6.7 L (-2.0-3.0) mmol/L ABG Hemoglobin 12.9 (11.7-17.4) g/dL ABG Carboxyhemoglobin 1.9 H (0.5-1.5) % POC ABG HHb (Measured) -0.9 L (0-5) % ABG Methemoglobin 1.1 (0.0-3.0) % ABG O2 Capacity 19.0 (16-24) mL/dl Hgb O2 Saturation 97.9 (95.0-98.0) % FiO2 100.0 % Sodium (132-148) mmol/L Potassium (3.6-5.0) mmol/L Chloride (98-107) mmol/L Carbon Dioxide (21-33) mmol/L Anion Gap (10-20) BUN (7-21) mg/dL Creatinine (0.8-1.5) mg/dl Est GFR ( Amer) Est GFR (Non-Af Amer) POC Glucose (mg/dL) 316 H 369 H (65-110) mg/dL Random Glucose (70-110) mg/dL Calcium (8.4-10.5) mg/dL Total Bilirubin (0.2-1.3) mg/dL AST (17-59) U/L ALT (7-56) U/L Alkaline Phosphatase (38-126) U/L Ammonia (9-33) umol/L Total Creatine Kinase (35-230) U/L Troponin I ng/mL NT-Pro-B Natriuret Pep (0-450) pg/mL Total Protein (5.8-8.3) g/dL Albumin (3.0-4.8) g/dL Globulin gm/dL Albumin/Globulin Ratio (1.1-1.8) Triglycerides (35-160) mg/dL Cholesterol (130-200) mg/dL LDL Cholesterol Direct (0-129) mg/dL HDL Cholesterol (29-60) mg/dL Thyroxine (T4) (5.5-11.0) ug/dL Total T3 (0.97-1.69) ng/mL TSH 3rd Generation (0.46-4.68) mIU/mL Blood Type Antibody Screen BBK History Checked 03/15/18 03/15/18 03/15/18 Range/Units 03:30 03:30 03:30 WBC (4.5-11.0) 10^3/ul RBC (3.5-6.1) 10^6/uL Hgb (14.0-18.0) g/dL Hct (42.0-52.0) % MCV (80.0-105.0) fl MCH (25.0-35.0) pg MCHC (31.0-37.0) g/dl RDW (11.5-14.5) % Plt Count (120.0-450.0) 10^3/uL MPV (7.0-11.0) fl Gran % (50.0-68.0) % Lymph % (Auto) (22.0-35.0) % Gilmer % (Auto) (1.0-6.0) % Eos % (Auto) (1.5-5.0) % Baso % (Auto) (0.0-3.0) % Gran # (1.4-6.5) Lymph # (Auto) (1.2-3.4) Gilmer # (Auto) (0.1-0.6) Eos # (Auto) (0.0-0.7) Baso # (Auto) (0.0-2.0) K/mm3 ESR (0.00-15.0) mm/hr pCO2 (35-45) mm/Hg pO2 (80-100) mm/Hg HCO3 (21-28) mmol/L ABG pH (7.35-7.45) ABG Total CO2 (22-28) mmol.L ABG O2 Saturation (95-98) % ABG O2 Content (15-23) ML/dl ABG Base Excess (-2.0-3.0) mmol/L ABG Hemoglobin (11.7-17.4) g/dL ABG Carboxyhemoglobin (0.5-1.5) % POC ABG HHb (Measured) (0-5) % ABG Methemoglobin (0.0-3.0) % ABG O2 Capacity (16-24) mL/dl Hgb O2 Saturation (95.0-98.0) % FiO2 % Sodium 143 (132-148) mmol/L Potassium 4.3 (3.6-5.0) mmol/L Chloride 107 (98-107) mmol/L Carbon Dioxide 22 (21-33) mmol/L Anion Gap 19 (10-20) BUN 12 (7-21) mg/dL Creatinine 0.5 L (0.8-1.5) mg/dl Est GFR ( Amer) > 60 Est GFR (Non-Af Amer) > 60 POC Glucose (mg/dL) (65-110) mg/dL Random Glucose 334 H* (70-110) mg/dL Calcium 8.5 (8.4-10.5) mg/dL Total Bilirubin 6.3 H (0.2-1.3) mg/dL AST 46 (17-59) U/L ALT 23 (7-56) U/L Alkaline Phosphatase 153 H D (38-126) U/L Ammonia (9-33) umol/L Total Creatine Kinase 88 (35-230) U/L Troponin I < 0.01 ng/mL NT-Pro-B Natriuret Pep 197 (0-450) pg/mL Total Protein 7.0 (5.8-8.3) g/dL Albumin 2.9 L (3.0-4.8) g/dL Globulin 4.1 gm/dL Albumin/Globulin Ratio 0.7 L (1.1-1.8) Triglycerides 100 (35-160) mg/dL Cholesterol 254 H (130-200) mg/dL LDL Cholesterol Direct 118 (0-129) mg/dL HDL Cholesterol 61 H (29-60) mg/dL Thyroxine (T4) 6.6 (5.5-11.0) ug/dL Total T3 0.62 L (0.97-1.69) ng/mL TSH 3rd Generation 5.79 H (0.46-4.68) mIU/mL Blood Type O POSITIVE Antibody Screen Negative BBK History Checked Patient has bt 03/15/18 03/15/18 03/15/18 Range/Units 03:30 02:33 01:20 WBC 6.6 D (4.5-11.0) 10^3/ul RBC 4.98 (3.5-6.1) 10^6/uL Hgb 14.9 14.3 (14.0-18.0) g/dL Hct 43.5 41.9 L (42.0-52.0) % MCV 87.3 (80.0-105.0) fl MCH 29.9 (25.0-35.0) pg MCHC 34.3 (31.0-37.0) g/dl RDW 16.4 H (11.5-14.5) % Plt Count 48 L* (120.0-450.0) 10^3/uL MPV 9.7 (7.0-11.0) fl Gran % 84.7 H (50.0-68.0) % Lymph % (Auto) 8.3 L (22.0-35.0) % Gilmer % (Auto) 6.8 H (1.0-6.0) % Eos % (Auto) 0.0 L (1.5-5.0) % Baso % (Auto) 0.2 (0.0-3.0) % Gran # 5.63 (1.4-6.5) Lymph # (Auto) 0.6 L (1.2-3.4) Gilmer # (Auto) 0.5 (0.1-0.6) Eos # (Auto) 0.0 (0.0-0.7) Baso # (Auto) 0.01 (0.0-2.0) K/mm3 ESR 16 H (0.00-15.0) mm/hr pCO2 (35-45) mm/Hg pO2 (80-100) mm/Hg HCO3 (21-28) mmol/L ABG pH (7.35-7.45) ABG Total CO2 (22-28) mmol.L ABG O2 Saturation (95-98) % ABG O2 Content (15-23) ML/dl ABG Base Excess (-2.0-3.0) mmol/L ABG Hemoglobin (11.7-17.4) g/dL ABG Carboxyhemoglobin (0.5-1.5) % POC ABG HHb (Measured) (0-5) % ABG Methemoglobin (0.0-3.0) % ABG O2 Capacity (16-24) mL/dl Hgb O2 Saturation (95.0-98.0) % FiO2 % Sodium (132-148) mmol/L Potassium (3.6-5.0) mmol/L Chloride (98-107) mmol/L Carbon Dioxide (21-33) mmol/L Anion Gap (10-20) BUN (7-21) mg/dL Creatinine (0.8-1.5) mg/dl Est GFR ( Amer) Est GFR (Non-Af Amer) POC Glucose (mg/dL) 328 H (65-110) mg/dL Random Glucose (70-110) mg/dL Calcium (8.4-10.5) mg/dL Total Bilirubin (0.2-1.3) mg/dL AST (17-59) U/L ALT (7-56) U/L Alkaline Phosphatase (38-126) U/L Ammonia (9-33) umol/L Total Creatine Kinase (35-230) U/L Troponin I ng/mL NT-Pro-B Natriuret Pep (0-450) pg/mL Total Protein (5.8-8.3) g/dL Albumin (3.0-4.8) g/dL Globulin gm/dL Albumin/Globulin Ratio (1.1-1.8) Triglycerides (35-160) mg/dL Cholesterol (130-200) mg/dL LDL Cholesterol Direct (0-129) mg/dL HDL Cholesterol (29-60) mg/dL Thyroxine (T4) (5.5-11.0) ug/dL Total T3 (0.97-1.69) ng/mL TSH 3rd Generation (0.46-4.68) mIU/mL Blood Type Antibody Screen BBK History Checked 03/15/18 03/14/18 03/14/18 Range/Units 00:10 23:55 21:34 WBC (4.5-11.0) 10^3/ul RBC (3.5-6.1) 10^6/uL Hgb (14.0-18.0) g/dL Hct (42.0-52.0) % MCV (80.0-105.0) fl MCH (25.0-35.0) pg MCHC (31.0-37.0) g/dl RDW (11.5-14.5) % Plt Count (120.0-450.0) 10^3/uL MPV (7.0-11.0) fl Gran % (50.0-68.0) % Lymph % (Auto) (22.0-35.0) % Gilmer % (Auto) (1.0-6.0) % Eos % (Auto) (1.5-5.0) % Baso % (Auto) (0.0-3.0) % Gran # (1.4-6.5) Lymph # (Auto) (1.2-3.4) Gilmer # (Auto) (0.1-0.6) Eos # (Auto) (0.0-0.7) Baso # (Auto) (0.0-2.0) K/mm3 ESR (0.00-15.0) mm/hr pCO2 30 L (35-45) mm/Hg pO2 68.0 L (80-100) mm/Hg HCO3 20.4 L (21-28) mmol/L ABG pH 7.44 (7.35-7.45) ABG Total CO2 21.3 L (22-28) mmol.L ABG O2 Saturation 97.5 (95-98) % ABG O2 Content 17.0 (15-23) ML/dl ABG Base Excess -2.7 L (-2.0-3.0) mmol/L ABG Hemoglobin 12.9 (11.7-17.4) g/dL ABG Carboxyhemoglobin 3.1 H (0.5-1.5) % POC ABG HHb (Measured) 2.4 (0-5) % ABG Methemoglobin 1.0 (0.0-3.0) % ABG O2 Capacity 17.4 (16-24) mL/dl Hgb O2 Saturation 93.6 L (95.0-98.0) % FiO2 21.0 % Sodium (132-148) mmol/L Potassium (3.6-5.0) mmol/L Chloride (98-107) mmol/L Carbon Dioxide (21-33) mmol/L Anion Gap (10-20) BUN (7-21) mg/dL Creatinine (0.8-1.5) mg/dl Est GFR ( Amer) Est GFR (Non-Af Amer) POC Glucose (mg/dL) 304 H (65-110) mg/dL Random Glucose (70-110) mg/dL Calcium (8.4-10.5) mg/dL Total Bilirubin (0.2-1.3) mg/dL AST (17-59) U/L ALT (7-56) U/L Alkaline Phosphatase (38-126) U/L Ammonia 26 (9-33) umol/L Total Creatine Kinase (35-230) U/L Troponin I ng/mL NT-Pro-B Natriuret Pep (0-450) pg/mL Total Protein (5.8-8.3) g/dL Albumin (3.0-4.8) g/dL Globulin gm/dL Albumin/Globulin Ratio (1.1-1.8) Triglycerides (35-160) mg/dL Cholesterol (130-200) mg/dL LDL Cholesterol Direct (0-129) mg/dL HDL Cholesterol (29-60) mg/dL Thyroxine (T4) (5.5-11.0) ug/dL Total T3 (0.97-1.69) ng/mL TSH 3rd Generation (0.46-4.68) mIU/mL Blood Type Antibody Screen BBK History Checked 03/14/18 03/14/18 Range/Units 16:56 15:43 WBC (4.5-11.0) 10^3/ul RBC (3.5-6.1) 10^6/uL Hgb (14.0-18.0) g/dL Hct (42.0-52.0) % MCV (80.0-105.0) fl MCH (25.0-35.0) pg MCHC (31.0-37.0) g/dl RDW (11.5-14.5) % Plt Count (120.0-450.0) 10^3/uL MPV (7.0-11.0) fl Gran % (50.0-68.0) % Lymph % (Auto) (22.0-35.0) % Gilmer % (Auto) (1.0-6.0) % Eos % (Auto) (1.5-5.0) % Baso % (Auto) (0.0-3.0) % Gran # (1.4-6.5) Lymph # (Auto) (1.2-3.4) Gilmer # (Auto) (0.1-0.6) Eos # (Auto) (0.0-0.7) Baso # (Auto) (0.0-2.0) K/mm3 ESR (0.00-15.0) mm/hr pCO2 (35-45) mm/Hg pO2 (80-100) mm/Hg HCO3 (21-28) mmol/L ABG pH (7.35-7.45) ABG Total CO2 (22-28) mmol.L ABG O2 Saturation (95-98) % ABG O2 Content (15-23) ML/dl ABG Base Excess (-2.0-3.0) mmol/L ABG Hemoglobin (11.7-17.4) g/dL ABG Carboxyhemoglobin (0.5-1.5) % POC ABG HHb (Measured) (0-5) % ABG Methemoglobin (0.0-3.0) % ABG O2 Capacity (16-24) mL/dl Hgb O2 Saturation (95.0-98.0) % FiO2 % Sodium (132-148) mmol/L Potassium (3.6-5.0) mmol/L Chloride (98-107) mmol/L Carbon Dioxide (21-33) mmol/L Anion Gap (10-20) BUN (7-21) mg/dL Creatinine (0.8-1.5) mg/dl Est GFR ( Amer) Est GFR (Non-Af Amer) POC Glucose (mg/dL) 361 H 389 H (65-110) mg/dL Random Glucose (70-110) mg/dL Calcium (8.4-10.5) mg/dL Total Bilirubin (0.2-1.3) mg/dL AST (17-59) U/L ALT (7-56) U/L Alkaline Phosphatase (38-126) U/L Ammonia (9-33) umol/L Total Creatine Kinase (35-230) U/L Troponin I ng/mL NT-Pro-B Natriuret Pep (0-450) pg/mL Total Protein (5.8-8.3) g/dL Albumin (3.0-4.8) g/dL Globulin gm/dL Albumin/Globulin Ratio (1.1-1.8) Triglycerides (35-160) mg/dL Cholesterol (130-200) mg/dL LDL Cholesterol Direct (0-129) mg/dL HDL Cholesterol (29-60) mg/dL Thyroxine (T4) (5.5-11.0) ug/dL Total T3 (0.97-1.69) ng/mL TSH 3rd Generation (0.46-4.68) mIU/mL Blood Type Antibody Screen BBK History Checked Laboratory Results - last 24 hr 03/14/18 03/14/18 03/14/18 15:43 16:56 21:34 WBC RBC Hgb Hct MCV MCH MCHC RDW Plt Count MPV Gran % Lymph % (Auto) Gilmer % (Auto) Eos % (Auto) Baso % (Auto) Gran # Lymph # (Auto) Gilmer # (Auto) Eos # (Auto) Baso # (Auto) ESR pCO2 pO2 HCO3 ABG pH ABG Total CO2 ABG O2 Saturation ABG O2 Content ABG Base Excess ABG Hemoglobin ABG Carboxyhemoglobin POC ABG HHb (Measured) ABG Methemoglobin ABG O2 Capacity Hgb O2 Saturation FiO2 Sodium Potassium Chloride Carbon Dioxide Anion Gap BUN Creatinine Est GFR ( Amer) Est GFR (Non-Af Amer) POC Glucose (mg/dL) 389 H 361 H 304 H Random Glucose Calcium Total Bilirubin AST ALT Alkaline Phosphatase Ammonia Total Creatine Kinase Troponin I NT-Pro-B Natriuret Pep Total Protein Albumin Globulin Albumin/Globulin Ratio Triglycerides Cholesterol LDL Cholesterol Direct HDL Cholesterol Thyroxine (T4) Total T3 TSH 3rd Generation Blood Type Antibody Screen BBK History Checked 03/14/18 03/15/18 03/15/18 23:55 00:10 01:20 WBC RBC Hgb 14.3 Hct 41.9 L MCV MCH MCHC RDW Plt Count MPV Gran % Lymph % (Auto) Gilmer % (Auto) Eos % (Auto) Baso % (Auto) Gran # Lymph # (Auto) Gilmer # (Auto) Eos # (Auto) Baso # (Auto) ESR pCO2 30 L pO2 68.0 L HCO3 20.4 L ABG pH 7.44 ABG Total CO2 21.3 L ABG O2 Saturation 97.5 ABG O2 Content 17.0 ABG Base Excess -2.7 L ABG Hemoglobin 12.9 ABG Carboxyhemoglobin 3.1 H POC ABG HHb (Measured) 2.4 ABG Methemoglobin 1.0 ABG O2 Capacity 17.4 Hgb O2 Saturation 93.6 L FiO2 21.0 Sodium Potassium Chloride Carbon Dioxide Anion Gap BUN Creatinine Est GFR ( Amer) Est GFR (Non-Af Amer) POC Glucose (mg/dL) Random Glucose Calcium Total Bilirubin AST ALT Alkaline Phosphatase Ammonia 26 Total Creatine Kinase Troponin I NT-Pro-B Natriuret Pep Total Protein Albumin Globulin Albumin/Globulin Ratio Triglycerides Cholesterol LDL Cholesterol Direct HDL Cholesterol Thyroxine (T4) Total T3 TSH 3rd Generation Blood Type Antibody Screen BBK History Checked 03/15/18 03/15/18 03/15/18 02:33 03:30 03:30 WBC 6.6 D RBC 4.98 Hgb 14.9 Hct 43.5 MCV 87.3 MCH 29.9 MCHC 34.3 RDW 16.4 H Plt Count 48 L* MPV 9.7 Gran % 84.7 H Lymph % (Auto) 8.3 L Gilmer % (Auto) 6.8 H Eos % (Auto) 0.0 L Baso % (Auto) 0.2 Gran # 5.63 Lymph # (Auto) 0.6 L Gilmer # (Auto) 0.5 Eos # (Auto) 0.0 Baso # (Auto) 0.01 ESR 16 H pCO2 pO2 HCO3 ABG pH ABG Total CO2 ABG O2 Saturation ABG O2 Content ABG Base Excess ABG Hemoglobin ABG Carboxyhemoglobin POC ABG HHb (Measured) ABG Methemoglobin ABG O2 Capacity Hgb O2 Saturation FiO2 Sodium 143 Potassium 4.3 Chloride 107 Carbon Dioxide 22 Anion Gap 19 BUN 12 Creatinine 0.5 L Est GFR ( Amer) > 60 Est GFR (Non-Af Amer) > 60 POC Glucose (mg/dL) 328 H Random Glucose 334 H* Calcium 8.5 Total Bilirubin 6.3 H AST 46 ALT 23 Alkaline Phosphatase 153 H D Ammonia Total Creatine Kinase 88 Troponin I < 0.01 NT-Pro-B Natriuret Pep 197 Total Protein 7.0 Albumin 2.9 L Globulin 4.1 Albumin/Globulin Ratio 0.7 L Triglycerides 100 Cholesterol 254 H LDL Cholesterol Direct 118 HDL Cholesterol 61 H Thyroxine (T4) Total T3 TSH 3rd Generation Blood Type Antibody Screen BBK History Checked 03/15/18 03/15/18 03/15/18 03:30 03:30 08:37 WBC RBC Hgb Hct MCV MCH MCHC RDW Plt Count MPV Gran % Lymph % (Auto) Gilmer % (Auto) Eos % (Auto) Baso % (Auto) Gran # Lymph # (Auto) Gilmer # (Auto) Eos # (Auto) Baso # (Auto) ESR pCO2 pO2 HCO3 ABG pH ABG Total CO2 ABG O2 Saturation ABG O2 Content ABG Base Excess ABG Hemoglobin ABG Carboxyhemoglobin POC ABG HHb (Measured) ABG Methemoglobin ABG O2 Capacity Hgb O2 Saturation FiO2 Sodium Potassium Chloride Carbon Dioxide Anion Gap BUN Creatinine Est GFR ( Amer) Est GFR (Non-Af Amer) POC Glucose (mg/dL) 369 H Random Glucose Calcium Total Bilirubin AST ALT Alkaline Phosphatase Ammonia Total Creatine Kinase Troponin I NT-Pro-B Natriuret Pep Total Protein Albumin Globulin Albumin/Globulin Ratio Triglycerides Cholesterol LDL Cholesterol Direct HDL Cholesterol Thyroxine (T4) 6.6 Total T3 0.62 L TSH 3rd Generation 5.79 H Blood Type O POSITIVE Antibody Screen Negative BBK History Checked Patient has bt 03/15/18 03/15/18 09:00 11:06 WBC RBC Hgb Hct MCV MCH MCHC RDW Plt Count MPV Gran % Lymph % (Auto) Gilmer % (Auto) Eos % (Auto) Baso % (Auto) Gran # Lymph # (Auto) Gilmer # (Auto) Eos # (Auto) Baso # (Auto) ESR pCO2 29 L pO2 511.0 H HCO3 17.2 L ABG pH 7.38 ABG Total CO2 18.1 L ABG O2 Saturation 100.9 H ABG O2 Content 19.2 ABG Base Excess -6.7 L ABG Hemoglobin 12.9 ABG Carboxyhemoglobin 1.9 H POC ABG HHb (Measured) -0.9 L ABG Methemoglobin 1.1 ABG O2 Capacity 19.0 Hgb O2 Saturation 97.9 FiO2 100.0 Sodium Potassium Chloride Carbon Dioxide Anion Gap BUN Creatinine Est GFR ( Amer) Est GFR (Non-Af Amer) POC Glucose (mg/dL) 316 H Random Glucose Calcium Total Bilirubin AST ALT Alkaline Phosphatase Ammonia Total Creatine Kinase Troponin I NT-Pro-B Natriuret Pep Total Protein Albumin Globulin Albumin/Globulin Ratio Triglycerides Cholesterol LDL Cholesterol Direct HDL Cholesterol Thyroxine (T4) Total T3 TSH 3rd Generation Blood Type Antibody Screen BBK History Checked EKG/Cardiology Studies: Cardiology / EKG Studies 03/14/18 14:24 EKG [ELECTROCARDIOGRAM] Stat Comment: Reason For Exam: epigastric pain Critical Care Progress Note - Nutrition Nutrition: Nutrition Category Date Time Status NPO Diet [DIET] Diets 03/15/18 Breakfast Ordered Assessment/Plan - Assessment and Plan (Free Text) Assessment: Patient seen and examined on rounds with resident, agree with note with following additions/exceptions: Patient is 62yo male with PMhx of end stage liver disease, Hep C, Cirrhosis, DM , non compliance, presented with HE, improved with lactulose, then last night had AMS with vomiting, 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 Pt unable to protect airway, intubated for airway protection. Pt currently afebrile, HD stable, comfortable in NAD. Patient started on 3% saline drip, Neurology consulted. Overall prognosis is extremely poor. ICH with midline shift Hep C Cirrhosis DM Recommend: - cont with vent support, low tidal vol ventilation, oxygenation acceptable, titrate down FiO2 - panculture, UCx, BCx, procal - BP control, goal SBP <140 - transfuse 2u FFP, 1u platelets - follow up neurology, neurosurgery - 3% saline, goal Na 145-150 - ECHO - lacutlose - monitor INR, HH - GI ppx - DVT ppx, SCDs - Overall prognosis is extremely poor, goals of care discussion with family critical care time 45 minutes
[2018-03-15] MEDS ORDERED: Alum-Mag Hydrox-Simethicone Susp (30 mL) PO PRN (10:00)
--- NOTE | 2018-03-15 10:19 | RAD ---
PROCEDURE: CHEST RADIOGRAPH, 1 VIEW HISTORY: ett placement COMPARISON: 03/11/2018 FINDINGS: LUNGS: Clear. PLEURA: No pneumothorax or pleural fluid seen. CARDIOVASCULAR: Normal. OSSEOUS STRUCTURES: No significant abnormalities. VISUALIZED UPPER ABDOMEN: Normal. OTHER FINDINGS: The endotracheal tube is in satisfactory position IMPRESSION: No active disease.
[2018-03-15] MEDS ORDERED: Sodium Chloride 0.9% 1,000 ML IV STA (10:57)
--- NOTE | 2018-03-15 11:03 | RAD ---
HISTORY: NGT insertion COMPARISON: 03/15/2018 FINDINGS: LUNGS: No active pulmonary disease. PLEURA: No significant pleural effusion identified, no pneumothorax apparent. CARDIOVASCULAR: Normal. OSSEOUS STRUCTURES: No significant abnormalities. VISUALIZED UPPER ABDOMEN: Normal. OTHER FINDINGS: None. IMPRESSION: The endotracheal tube and nasogastric tube are in satisfactory position
[2018-03-15] MEDS ORDERED: levETIRAcetam 1,000 MG in Sodium Chloride 0.9% 100 ML IV ONE (14:38)
[2018-03-15] MEDS: levETIRAcetam 500mg IVPB 500 MG/100 ML BAG IV SCH ×2 (14:43→22:44)
[2018-03-15] MEDS ORDERED: levETIRAcetam 500 MG in Sodium Chloride 0.9% 100 ML IV ONE (14:45)
[2018-03-15 14:54] LABS: BLOOD UREA NITROGEN 11 mg/dL (7-21); CALCIUM 8.7 mg/dL (8.4-10.5); GFR AFRICAN-AMERICAN > 60; GFR NON-AFRICAN AMERICAN > 60
[2018-03-15] MEDS ORDERED: levETIRAcetam 500mg IVPB 500 MG/100 ML BAG IVPB STA (14:54)
--- NOTE | 2018-03-15 15:13 | CP.PCM.CON ---
History of Present Illness - History of Present Illness History of Present Illness: 62 yr old male who was admitted for altered mental status, with pmh of HEP C, cirrhosis, IDDM, bilateral inguinal hernias, who was actually speaking, alert last night, when he suddenly developed loss of consciousness. He was found to have a large almost complete hemisphere left parietal lobe bleed, extending intraventricuarly, with no fracture or stroke noted. There is significant midline shift with transtentorial herniation, and no uncal herniation at the time of presentation. Today, he is intubated, and sedated on diprivan with no seizures, no other focal abnormal movements. Appreciate 's input. PMH: Hepatitis C, Cirrhosis, R inguinal hernia, IDDM, noncompliance PSH: Denied in the past All: NKDA FamilyHx: Denied during last admission SocialHx: current smoker (5 cig/day for 20 years), denied current or history of alcohol or illicit drug use during last admission. Lives at home with and son. Normally able to preform ADL's. Allergies: NKDA on exam: conducted while intubated. PERRL, no dolls no gag, no response to painful stimuli no spontaneous movement, no clonus sensory: not able to conduct. hyporeflexic bilaterally. Toes downgoing no clonus. Past Patient History - Infectious Disease Hx of Infectious Diseases: None - Tetanus Immunizations Tetanus Immunization: Unknown - Past Medical History & Family History Past Medical History?: Yes - Past Social History Smoking Status: Light Smoker < 10 Cigarettes Daily - CARDIAC Hx Atrial Fibrillation: No - PULMONARY Hx Respiratory Disorders: No - NEUROLOGICAL Hx Neurological Disorder: No - HEENT Hx HEENT Problems: No - RENAL Hx Chronic Kidney Disease: No - ENDOCRINE/METABOLIC Hx Diabetes Mellitus Type 1: Yes - HEMATOLOGICAL/ONCOLOGICAL Hx Cirrhosis: Yes Hx Hepatitis C: Yes Other/Comment: Inguinal hernia - INTEGUMENTARY Hx Dermatological Problems: No - MUSCULOSKELETAL/RHEUMATOLOGICAL Hx Musculoskeletal Disorders: No Hx Falls: Yes - GASTROINTESTINAL Hx Gastrointestinal Disorders: Yes Other/Comment: Liver Disease - GENITOURINARY/GYNECOLOGICAL Hx Genitourinary Disorders: No - PSYCHIATRIC Hx Psychophysiologic Disorder: No Hx Substance Use: No - SURGICAL HISTORY Hx Surgeries: No - ANESTHESIA Hx Anesthesia: No Hx Anesthesia Reactions: No Meds Home Medications: Home Medication List Medication Instructions Recorded Confirmed Type Furosemide [Lasix] 40 mg PO DAILY #30 tablet 03/14/18 Rx Lactulose [Enulose] 30 gm PO TID #90 udc 03/14/18 Rx Pantoprazole [Protonix EC Tab] 40 mg PO 0600 #30 ect 03/14/18 Rx Spironolactone [Aldactone] 100 mg PO DAILY #30 tablet 03/14/18 Rx rifAXIMin [Xifaxan] 550 mg PO BID #60 tab 03/14/18 Rx Allergies/Adverse Reactions: Allergies Allergy/AdvReac Type Severity Reaction Status Date / Time No Known Allergies Allergy Verified 01/08/18 20:25 - Medications Medications: Current Medications Al Hydrox/Mg Hydrox/Simethicone (Maalox Plus 30 Ml) 30 ml PO DAILY PRN PRN Reason: Indigestion / Heartburn Furosemide (Lasix) 40 mg PO DAILY [facility] Last Admin: 03/15/18 10:36 Dose: 40 mg Propofol (Diprivan) 1,000 mg in 100 mls @ 1.932 mls/hr IV .Q24H PRN; Protocol; 5 MCG/KG/MIN PRN Reason: TITRATE PER MD ORDER Last Admin: 03/15/18 08:00 Dose: 5 mcg/kg/min, 1.932 mls/hr Sodium Chloride (Hypertonic Saline 3%) 500 mls @ 30 mls/hr IV .[id number] [facility] Last Admin: 03/15/18 10:50 Dose: 30 mls/hr Levetiracetam (Keppra 500mg Ivpb) 500 mg in 100 mls @ 400 mls/hr IV Q12 [facility] Insulin Human Lispro (Humalog High) 0 units SC ACHS [facility] PRN Reason: Protocol Last Admin: 03/15/18 11:32 Dose: 10 units Insulin Lispro Protam/Lispro Human (Humalog Mix 75/25) 15 units SC BIDAC [facility] Last Admin: 03/15/18 08:42 Dose: Not Given Labetalol HCl (Trandate) 10 mg IV Q4 PRN PRN Reason: Blood Pressure 220/110 & above Lactulose (Enulose) 30 gm PO TID [facility] Last Admin: 03/15/18 10:36 Dose: 30 gm Levothyroxine Sodium (Synthroid) 50 mcg PO 0600 [facility] Ondansetron HCl (Zofran Inj) 4 mg IVP Q6H PRN PRN Reason: Nausea/Vomiting Last Admin: 03/15/18 00:14 Dose: 4 mg Pantoprazole Sodium (Protonix Ec Tab) 40 mg PO 0600 [facility] Last Admin: 03/15/18 10:36 Dose: 40 mg Rifaximin (Xifaxan) 550 mg PO BID [facility] PRN Reason: Protocol Last Admin: 03/15/18 10:36 Dose: 550 mg Spironolactone (Aldactone) 100 mg PO DAILY [facility] Last Admin: 03/15/18 09:52 Dose: Not Given Sucralfate (Carafate Tab) 1 gm PO 0600,1600 [facility] Last Admin: 03/15/18 05:19 Dose: Not Given Results - Vital Signs Recent Vital Signs: Last Vital Signs Temp 97 F L 03/15/18 06:30 Pulse 94 H 03/15/18 14:10 Resp 15 03/15/18 08:25 BP 133/70 03/15/18 14:00 Pulse Ox 100 03/15/18 14:10 - Labs Result Diagrams: 03/15/18 03:30 03/15/18 14:20 Labs: Laboratory Results - last 24 hr 03/14/18 03/14/18 03/14/18 15:43 16:56 21:34 WBC RBC Hgb Hct MCV MCH MCHC RDW Plt Count MPV Gran % Lymph % (Auto) [place] % (Auto) Eos % (Auto) Baso % (Auto) Gran # Lymph # (Auto) [place] # (Auto) Eos # (Auto) Baso # (Auto) ESR pCO2 pO2 HCO3 ABG pH ABG Total CO2 ABG O2 Saturation ABG O2 Content ABG Base Excess ABG Hemoglobin ABG Carboxyhemoglobin POC ABG HHb (Measured) ABG Methemoglobin ABG O2 Capacity Hgb O2 Saturation FiO2 Sodium Potassium Chloride Carbon Dioxide Anion Gap BUN Creatinine Est GFR ( Amer) Est GFR (Non-Af Amer) POC Glucose (mg/dL) 389 H 361 H 304 H Random Glucose Calcium Total Bilirubin AST ALT Alkaline Phosphatase Ammonia Total Creatine Kinase Troponin I C-React Prot High Sens NT-Pro-B Natriuret Pep Total Protein Albumin Globulin Albumin/Globulin Ratio Triglycerides Cholesterol LDL Cholesterol Direct HDL Cholesterol Vitamin B12 Thyroxine (T4) Total T3 TSH 3rd Generation Blood Type Antibody Screen BBK History Checked 03/14/18 03/15/18 03/15/18 23:55 00:10 01:20 WBC RBC Hgb 14.3 Hct 41.9 L MCV MCH MCHC RDW Plt Count MPV Gran % Lymph % (Auto) [place] % (Auto) Eos % (Auto) Baso % (Auto) Gran # Lymph # (Auto) [place] # (Auto) Eos # (Auto) Baso # (Auto) ESR pCO2 30 L pO2 68.0 L HCO3 20.4 L ABG pH 7.44 ABG Total CO2 21.3 L ABG O2 Saturation 97.5 ABG O2 Content 17.0 ABG Base Excess -2.7 L ABG Hemoglobin 12.9 ABG Carboxyhemoglobin 3.1 H POC ABG HHb (Measured) 2.4 ABG Methemoglobin 1.0 ABG O2 Capacity 17.4 Hgb O2 Saturation 93.6 L FiO2 21.0 Sodium Potassium Chloride Carbon Dioxide Anion Gap BUN Creatinine Est GFR ( Amer) Est GFR (Non-Af Amer) POC Glucose (mg/dL) Random Glucose Calcium Total Bilirubin AST ALT Alkaline Phosphatase Ammonia 26 Total Creatine Kinase Troponin I C-React Prot High Sens NT-Pro-B Natriuret Pep Total Protein Albumin Globulin Albumin/Globulin Ratio Triglycerides Cholesterol LDL Cholesterol Direct HDL Cholesterol Vitamin B12 Thyroxine (T4) Total T3 TSH 3rd Generation Blood Type Antibody Screen BBK History Checked 03/15/18 03/15/18 03/15/18 02:33 03:30 03:30 WBC 6.6 D RBC 4.98 Hgb 14.9 Hct 43.5 MCV 87.3 MCH 29.9 MCHC 34.3 RDW 16.4 H Plt Count 48 L* MPV 9.7 Gran % 84.7 H Lymph % (Auto) 8.3 L Marathon % (Auto) 6.8 H Eos % (Auto) 0.0 L Baso % (Auto) 0.2 Gran # 5.63 Lymph # (Auto) 0.6 L [place] # (Auto) 0.5 Eos # (Auto) 0.0 Baso # (Auto) 0.01 ESR 16 H pCO2 pO2 HCO3 ABG pH ABG Total CO2 ABG O2 Saturation ABG O2 Content ABG Base Excess ABG Hemoglobin ABG Carboxyhemoglobin POC ABG HHb (Measured) ABG Methemoglobin ABG O2 Capacity Hgb O2 Saturation FiO2 Sodium 143 Potassium 4.3 Chloride 107 Carbon Dioxide 22 Anion Gap 19 BUN 12 Creatinine 0.5 L Est GFR ( Amer) > 60 Est GFR (Non-Af Amer) > 60 POC Glucose (mg/dL) 328 H Random Glucose 334 H* Calcium 8.5 Total Bilirubin 6.3 H AST 46 ALT 23 Alkaline Phosphatase 153 H D Ammonia Total Creatine Kinase 88 Troponin I < 0.01 C-React Prot High Sens NT-Pro-B Natriuret Pep 197 Total Protein 7.0 Albumin 2.9 L Globulin 4.1 Albumin/Globulin Ratio 0.7 L Triglycerides 100 Cholesterol 254 H LDL Cholesterol Direct 118 HDL Cholesterol 61 H Vitamin B12 > 1000 H Thyroxine (T4) Total T3 TSH 3rd Generation Blood Type Antibody Screen BBK History Checked 03/15/18 03/15/18 03/15/18 03:30 03:30 08:37 WBC RBC Hgb Hct MCV MCH MCHC RDW Plt Count MPV Gran % Lymph % (Auto) [place] % (Auto) Eos % (Auto) Baso % (Auto) Gran # Lymph # (Auto) [place] # (Auto) Eos # (Auto) Baso # (Auto) ESR pCO2 pO2 HCO3 ABG pH ABG Total CO2 ABG O2 Saturation ABG O2 Content ABG Base Excess ABG Hemoglobin ABG Carboxyhemoglobin POC ABG HHb (Measured) ABG Methemoglobin ABG O2 Capacity Hgb O2 Saturation FiO2 Sodium Potassium Chloride Carbon Dioxide Anion Gap BUN Creatinine Est GFR ( Amer) Est GFR (Non-Af Amer) POC Glucose (mg/dL) 369 H Random Glucose Calcium Total Bilirubin AST ALT Alkaline Phosphatase Ammonia Total Creatine Kinase Troponin I C-React Prot High Sens > 15.00 H NT-Pro-B Natriuret Pep Total Protein Albumin Globulin Albumin/Globulin Ratio Triglycerides Cholesterol LDL Cholesterol Direct HDL Cholesterol Vitamin B12 Thyroxine (T4) 6.6 Total T3 0.62 L TSH 3rd Generation 5.79 H Blood Type O POSITIVE Antibody Screen Negative BBK History Checked Patient has bt 03/15/18 03/15/18 09:00 11:06 WBC RBC Hgb Hct MCV MCH MCHC RDW Plt Count MPV Gran % Lymph % (Auto) [place] % (Auto) Eos % (Auto) Baso % (Auto) Gran # Lymph # (Auto) [place] # (Auto) Eos # (Auto) Baso # (Auto) ESR pCO2 29 L pO2 511.0 H HCO3 17.2 L ABG pH 7.38 ABG Total CO2 18.1 L ABG O2 Saturation 100.9 H ABG O2 Content 19.2 ABG Base Excess -6.7 L ABG Hemoglobin 12.9 ABG Carboxyhemoglobin 1.9 H POC ABG HHb (Measured) -0.9 L ABG Methemoglobin 1.1 ABG O2 Capacity 19.0 Hgb O2 Saturation 97.9 FiO2 100.0 Sodium Potassium Chloride Carbon Dioxide Anion Gap BUN Creatinine Est GFR ( Amer) Est GFR (Non-Af Amer) POC Glucose (mg/dL) 316 H Random Glucose Calcium Total Bilirubin AST ALT Alkaline Phosphatase Ammonia Total Creatine Kinase Troponin I C-React Prot High Sens NT-Pro-B Natriuret Pep Total Protein Albumin Globulin Albumin/Globulin Ratio Triglycerides Cholesterol LDL Cholesterol Direct HDL Cholesterol Vitamin B12 Thyroxine (T4) Total T3 TSH 3rd Generation Blood Type Antibody Screen BBK History Checked Assessment & Plan - Assessment and Plan (Free Text) Assessment: Ct Head: left parietal large intracranial hemorrhage as of 03/15. Impression: 62 yr old male with most likely compromised platelet function who now has large left intracerebral bleed, and severe liver disease. He has end stage liver cirrhosis and cachexia with ascites as well. Plan: 1. Start Keppra 1000 mg IV now and 500 mg bid. 2. EEG saturday 3. Repeat ct head am 4. Mannitol weight based protocol Thank you DR. Rodriguez
[2018-03-15] MEDS: Mannitol 12.5 gm/50 ml Inj IV SCH ×2 (15:18→22:44)
--- NOTE | 2018-03-15 16:25 | PCM.PROC ---
Procedures Attestation:: I certify that I have explained the specified Operation(s) or Procedure(s), risks, benefits and reasonable alternatives to the Patient and/or other person responsible. The opportunity was given to ask questions and all questions answered - Central Line Placement Left Femoral Triple Lumen Catheter Aseptic technique was employed throughout the procedure: Hand Hygiene done prior to procedure, Full sterile barriers (mask, hair cover, sterile gown, sterile gloves), Full body sterile drape, Chloraprep Antiseptic: 2 minute prep for Femoral CVP Time Out Performed: Yes Pt. Placed on Pulse Ox Monitor: Yes Central Line Prep: Chlorhexidine-Alcohol Combination Ultrasound Used for Placement: Yes Central Line Lumen Inserted: triple Central Line Length: 20 cm Post Procedure: Sutured in Place, Good Blood Return, All Ports Aspirated, Flushed, Capped, Sterile Dressing Applied Secured by: Suture Post procedure dressing: Chlorhexidine disc (Biopatch) Post Procedure X-Ray: No Patient Tolerated Procedure: Well Immediate Complications: None
[2018-03-15 22:17] LABS: BLOOD UREA NITROGEN 12 mg/dL (7-21); CALCIUM 8.6 mg/dL (8.4-10.5); GFR AFRICAN-AMERICAN > 60; GFR NON-AFRICAN AMERICAN > 60
[2018-03-16 02:45] LABS: BLOOD UREA NITROGEN 13 mg/dL (7-21); CALCIUM 8.6 mg/dL (8.4-10.5); GFR AFRICAN-AMERICAN > 60; GFR NON-AFRICAN AMERICAN > 60
[2018-03-16] MEDS: Propofol 10 mg/ml 1,000 MG/100 ML VIAL IV PRN (04:03)
[2018-03-16] MEDS: Pantoprazole 40 mg EC Tab PO SCH (05:05)
[2018-03-16] MEDS: Levothyroxine 50 MCG TAB PO SCH (05:05)
[2018-03-16 05:12] LABS: ARTERIAL BLOOD GAS HCO3 23.6 mmol/L (21-28); ARTERIAL BLOOD GAS HEMOGLOBIN 12.1 g/dL (11.7-17.4); ARTERIAL BLOOD GAS O2 CAPACITY 16.7 mL/dl (16-24); ARTERIAL BLOOD GAS O2 CONTENT 16.7 ML/dl (15-23); ARTERIAL BLOOD GAS O2 SAT 99.8 % (95-98); ARTERIAL BLOOD GAS PCO2 34 mm/Hg (35-45); ARTERIAL BLOOD GAS PH 7.45 (7.35-7.45); ARTERIAL BLOOD GAS TCO2 24.6 mmol.L (22-28)
[2018-03-16] MEDS: Mannitol 12.5 gm/50 ml Inj IV SCH ×3 (05:47→21:56)
--- NOTE | 2018-03-16 06:06 | CP.PCM.PN ---
Subjective - Date & Time of Evaluation Date of Evaluation: 03/16/18 Time of Evaluation: 06:06 - Subjective Subjective: Mr. Feng was seen and examined at the bedside in ICU. He remains intubated with PRVC mode. He does not have any corneal reflex, pain response, pupils are fixed, GCS-3T, and miosis with noticeable cataract. He has a weak gag reflex and breaths over the set ventilator rate. He is on propofol drip for sedation, but on sedation vacation, he remains with no response. Serum osmolality level 314 and Na-151. There was no untoward events overnight. Objective - Vital Signs/Intake and Output Vital Signs (last 24 hours): Temp Pulse Resp BP Pulse Ox 98.5 F 98 H 16 116/59 L 100 03/15/18 19:00 03/16/18 04:40 03/15/18 23:00 03/16/18 04:00 03/16/18 04:40 Intake and Output: 03/15/18 03/16/18 18:59 06:59 Intake Total 1959 100 Output Total 1250 Balance 709 100 - Medications Medications: Current Medications Al Hydrox/Mg Hydrox/Simethicone (Maalox Plus 30 Ml) 30 ml PO DAILY PRN PRN Reason: Indigestion / Heartburn Furosemide (Lasix) 40 mg PO DAILY [facility] Last Admin: 03/15/18 10:36 Dose: 40 mg Propofol (Diprivan) 1,000 mg in 100 mls @ 1.932 mls/hr IV .Q24H PRN; Protocol; 5 MCG/KG/MIN PRN Reason: TITRATE PER MD ORDER Last Admin: 03/16/18 04:03 Dose: 20 mcg/kg/min, 7.729 mls/hr Sodium Chloride (Hypertonic Saline 3%) 500 mls @ 30 mls/hr IV .[id number] [facility] Last Admin: 03/15/18 10:50 Dose: 30 mls/hr Levetiracetam (Keppra 500mg Ivpb) 500 mg in 100 mls @ 400 mls/hr IV Q12 [facility] Last Admin: 03/15/18 22:44 Dose: 400 mls/hr Insulin Human Lispro (Humalog High) 0 units SC ACHS [facility] PRN Reason: Protocol Last Admin: 05/05/18 22:45 Dose: 2 units Insulin Lispro Protam/Lispro Human (Humalog Mix 75/25) 15 units SC BIDAC [facility] Last Admin: 03/15/18 17:16 Dose: Not Given Labetalol HCl (Trandate) 10 mg IV Q4 PRN PRN Reason: Blood Pressure 220/110 & above Lactulose (Enulose) 30 gm PO TID [facility] Last Admin: 03/15/18 17:15 Dose: 30 gm Levothyroxine Sodium (Synthroid) 50 mcg PO 0600 [facility] Last Admin: 03/16/18 05:05 Dose: 50 mcg Mannitol (Mannitol) 17 gm IV Q8H [facility] Last Admin: 03/16/18 05:47 Dose: 17 gm Ondansetron HCl (Zofran Inj) 4 mg IVP Q6H PRN PRN Reason: Nausea/Vomiting Last Admin: 03/15/18 00:14 Dose: 4 mg Pantoprazole Sodium (Protonix Ec Tab) 40 mg PO 0600 [facility] Last Admin: 03/16/18 05:05 Dose: 40 mg Rifaximin (Xifaxan) 550 mg PO BID [facility] PRN Reason: Protocol Last Admin: 03/15/18 17:15 Dose: 550 mg Spironolactone (Aldactone) 100 mg PO DAILY [facility] Last Admin: 03/15/18 14:50 Dose: 100 mg Sucralfate (Carafate Tab) 1 gm PO 0600,1600 [facility] Last Admin: 03/16/18 05:05 Dose: 1 gm - Labs Labs: 03/15/18 03:30 03/16/18 02:10 PT 20.7 SECONDS (9.4-12.5) H 03/14/18 07:00 INR 1.78 (0.93-1.08) H 03/14/18 07:00 APTT 38.3 Seconds (25.1-36.5) H 03/11/18 18:45 - Constitutional Appears: No Acute Distress - Head Exam Head Exam: NORMAL INSPECTION - Eye Exam Pupil Exam: Fixed, Miosis - Neurological Exam Neuro motor strength exam: Left Upper Extremity: 0, Right Upper Extremity: 0, Left Lower Extremity: 0, Right Lower Extremity: 0 Additional comments: GCS-3T. Assessment and Plan (1) Intracranial hemorrhage Assessment & Plan: Case discussed with Dr. Rodriguez, continue all current medical regimen, Recommend repeat CT scan of the head today. Recommend monitoring serum na and osmolality, blood pressure control, treat any electrolyte abnormalities. Follow up EEG in am. Status: Acute
[2018-03-16 06:35] LABS: GRAN # 4.75 (1.4-6.5); GRAN % 81.5 % (50.0-68.0); HEMOGLOBIN 10.8 g/dL (14.0-18.0); LYMPH # 0.4 (1.2-3.4); MEAN CELL VOLUME 89.3 fl (80.0-105.0); MEAN CORPUSCULAR HEMOGLOBIN 29.5 pg (25.0-35.0); MEAN PLATELET VOLUME 10.5 fl (7.0-11.0); MONO # 0.7 (0.1-0.6); MONO % 12.5 % (1.0-6.0); RBC 3.66 10^6/uL (3.5-6.1); RED CELL DISTRIBUTION WIDTH 16.9 % (11.5-14.5); WHITE BLOOD COUNT 5.8 10^3/ul (4.5-11.0)
[2018-03-16 07:12] LABS: BLOOD UREA NITROGEN 13 mg/dL (7-21); CALCIUM 8.5 mg/dL (8.4-10.5); GFR AFRICAN-AMERICAN > 60; GFR NON-AFRICAN AMERICAN > 60
--- NOTE | 2018-03-16 07:28 | CP.PCM.PN ---
<Kelly Pang - Last Filed: 03/16/18 15:14> Subjective - Date & Time of Evaluation Date of Evaluation: 03/16/18 Time of Evaluation: 07:28 - Subjective Subjective: Internal Medicine Progress Note: Patient seen and examined at bedside. Per nursing, no acute events overnight. Patent is intubated and on sedation vacation. Hypertonic saline on hold at this time. Patient not responding to verbal or painful stimuli. ROS not obtained. Objective - Vital Signs/Intake and Output Vital Signs (last 24 hours): Temp Pulse Resp BP Pulse Ox 99.9 F H 98 H 16 116/59 L 100 03/16/18 05:00 03/16/18 04:40 03/15/18 23:00 03/16/18 04:00 03/16/18 04:40 Intake and Output: 03/16/18 03/16/18 06:59 18:59 Intake Total 668 Output Total 550 Balance 118 - Medications Medications: Current Medications Al Hydrox/Mg Hydrox/Simethicone (Maalox Plus 30 Ml) 30 ml PO DAILY PRN PRN Reason: Indigestion / Heartburn Furosemide (Lasix) 40 mg PO DAILY [facility] Last Admin: 03/15/18 10:36 Dose: 40 mg Propofol (Diprivan) 1,000 mg in 100 mls @ 1.932 mls/hr IV .Q24H PRN; Protocol; 5 MCG/KG/MIN PRN Reason: TITRATE PER MD ORDER Last Admin: 03/16/18 04:03 Dose: 20 mcg/kg/min, 7.729 mls/hr Sodium Chloride (Hypertonic Saline 3%) 500 mls @ 30 mls/hr IV .[id number] [facility] Last Admin: 03/15/18 10:50 Dose: 30 mls/hr Levetiracetam (Keppra 500mg Ivpb) 500 mg in 100 mls @ 400 mls/hr IV Q12 [facility] Last Admin: 03/15/18 22:44 Dose: 400 mls/hr Insulin Human Lispro (Humalog High) 0 units SC ACHS [facility] PRN Reason: Protocol Last Admin: 03/15/18 22:45 Dose: 2 units Insulin Lispro Protam/Lispro Human (Humalog Mix 75/25) 15 units SC BIDAC [facility] Last Admin: 03/15/18 17:16 Dose: Not Given Labetalol HCl (Trandate) 10 mg IV Q4 PRN PRN Reason: Blood Pressure 220/110 & above Lactulose (Enulose) 30 gm PO TID [facility] Last Admin: 03/15/18 17:15 Dose: 30 gm Levothyroxine Sodium (Synthroid) 50 mcg PO 0600 [facility] Last Admin: 03/16/18 05:05 Dose: 50 mcg Mannitol (Mannitol) 17 gm IV Q8H [facility] Last Admin: 03/16/18 05:47 Dose: 17 gm Ondansetron HCl (Zofran Inj) 4 mg IVP Q6H PRN PRN Reason: Nausea/Vomiting Last Admin: 03/15/18 00:14 Dose: 4 mg Pantoprazole Sodium (Protonix Ec Tab) 40 mg PO 0600 [facility] Last Admin: 03/16/18 05:05 Dose: 40 mg Rifaximin (Xifaxan) 550 mg PO BID [facility] PRN Reason: Protocol Last Admin: 03/15/18 17:15 Dose: 550 mg Spironolactone (Aldactone) 100 mg PO DAILY [facility] Last Admin: 03/15/18 14:50 Dose: 100 mg Sucralfate (Carafate Tab) 1 gm PO 0600,1600 [facility] Last Admin: 03/16/18 05:05 Dose: 1 gm - Labs Labs: 03/16/18 06:20 03/16/18 06:20 PT 20.7 SECONDS (9.4-12.5) H 03/14/18 07:00 INR 1.78 (0.93-1.08) H 03/14/18 07:00 APTT 38.3 Seconds (25.1-36.5) H 03/11/18 18:45 - Constitutional Appears: Non-toxic, No Acute Distress, Chronically Ill - Head Exam Head Exam: ATRAUMATIC, NORMAL INSPECTION, NORMOCEPHALIC - Eye Exam Pupil Exam: Fixed - ENT Exam ENT Exam: Mucous Membranes Moist Additional comments: ETT tube, NGT tube - Respiratory Exam Respiratory Exam: Clear to Ausculation Bilateral, NORMAL BREATHING PATTERN. absent: Rales, Rhonchi, Wheezes - Cardiovascular Exam Cardiovascular Exam: REGULAR RHYTHM, +S1, +S2 - GI/Abdominal Exam GI & Abdominal Exam: Distended, Soft. absent: Firm, Guarding, Rigid, Tenderness - Extremities Exam Extremities Exam: Normal Inspection - Neurological Exam Neurological Exam: absent: Alert, Awake, Oriented x3 Additional comments: Intubated and sedated - Skin Skin Exam: Normal Color, Warm Assessment and Plan - Assessment and Plan (Free Text) Assessment: Intraparenchymal Hemorrhage -Patient in ICU -Intubated and on sedation vacation -CT head showed large right parietal intraparenchymal hemorrhage with intraventricular extension, surrounding edema is present with mass effect, midline shift, and effacement of the sulci and cisterns -CTA Head and Neck is negative -Hypertonic saline 3% at 40cc/hr (on hold at time), goal sodium 145-150 -Continue Mannitol -Aim to maintain BP <140/90 -Repeat Head CT showed no significant change in massive hemorrhage in the left parietal lobe extending to the cortical surface and the lateral ventricle. 11mm of midline shift; new subarachnoid hemorrhage over the right hemisphere -Patient for EEG tomorrow -s/p 2 units FFP and 1 unit of platelets ordered -Neurosurgery consulted, help appreciated -Neurology consulted, help appreciated -Keppra 500mg Q12H IV for seizure ppx -Neuro checks, seizure precautions, aspiration precautions -Prognosis is poor, palliative care consulted -No Neurosurgical intervention at this time, plan for conservative management; family to decide on palliative care Altered Mental Status -Likely 2/2 to Hepatic Encephalopathy. Ammonia 121 on Admission. -Alcohol <10, Utox negative -History of Liver cirrhosis, Hep C -CT Abd/Pelvis (Adm): Cirrhosis with splenomegaly, varices and ascites; chronic calcific pancreatitis; probable ileus, no obstruction; possibly constipation; empty bladder with Serna catheter in wall thickening -Patient received in the ED: 200gm Lactulose DC, 1L Fluid Bolus x 2 -Ammonia is trending down, patient mentation improved after lactulose -Blood cultures showing no growth, urine cultures showing no growth; procal is low -Cotninue on Rifaxamin, Lactulose 30mg PO TID -Continue Lasix 40mg daily and Aldactone 100mg daily -GI on consult, help appreciated -Physical Therapy evaluation -Patient mental status improved after lactulose, SBP not likely; discussed with GI, will hold off paracentesis at this time. Elevated TSH -Started on synthroid Leukopenia -Afebrile -Daily CBC -Chronic in nature Scrotal Swelling -US on last admission negative for torsion -Consider repeat US -Scrotal elevation. Hypomagnesemia -Continue to monitor Thrombocytopenia (Chronic) -Likely 2/2 Hepatic Cirrhosis -No Gross bleeding -Daily CBC -Cont. to Monitor Hx of IDDM -High dose ISS -Accuchecks Q4H -Humalog 75/25 15 units BIDAC -High dose ISS Proph -Protonix 40mg PO daily -Lower extremity dopplers negative for DVT -No anticoagulation in setting of hemorrhagic stroke Plan discussed with Dr Flores <Chetna Flores - Last Filed: 03/16/18 16:36> Objective - Vital Signs/Intake and Output Vital Signs (last 24 hours): Temp Pulse Resp BP Pulse Ox 99.0 F 101 H 26 H 117/70 96 03/16/18 13:09 03/16/18 09:00 03/16/18 11:00 03/16/18 09:35 03/16/18 11:00 Intake and Output: 03/16/18 03/16/18 06:59 18:59 Intake Total 668 38 Output Total 550 Balance 118 38 - Medications Medications: Current Medications Furosemide (Lasix) 40 mg PO DAILY [facility] Last Admin: 03/16/18 09:35 Dose: 40 mg Propofol (Diprivan) 1,000 mg in 100 mls @ 1.932 mls/hr IV .Q24H PRN; Protocol; 5 MCG/KG/MIN PRN Reason: TITRATE PER MD ORDER Last Titration: 03/16/18 09:30 Dose: 0 mcg/kg/min, 0 mls/hr Sodium Chloride (Hypertonic Saline 3%) 500 mls @ 30 mls/hr IV .[id number] [facility] Last Admin: 03/15/18 10:50 Dose: 30 mls/hr Levetiracetam (Keppra 500mg Ivpb) 500 mg in 100 mls @ 400 mls/hr IV Q12 [facility] Last Admin: 03/16/18 09:34 Dose: 400 mls/hr Insulin Human Lispro (Humalog High) 0 units SC ACHS [facility] PRN Reason: Protocol Last Admin: 03/16/18 11:57 Dose: 10 units Insulin Lispro Protam/Lispro Human (Humalog Mix 75/25) 15 units SC BIDAC [facility] Last Admin: 03/16/18 08:07 Dose: Not Given Labetalol HCl (Trandate) 10 mg IV Q4 PRN PRN Reason: Blood Pressure 220/110 & above Lactulose (Enulose) 30 gm PO TID [facility] Last Admin: 03/16/18 14:27 Dose: 30 gm Levothyroxine Sodium (Synthroid) 50 mcg PO 0600 [facility] Last Admin: 03/16/18 05:05 Dose: 50 mcg Mannitol (Mannitol) 17 gm IV Q8H [facility] Last Admin: 03/16/18 14:26 Dose: 17 gm Ondansetron HCl (Zofran Inj) 4 mg IVP Q6H PRN PRN Reason: Nausea/Vomiting Last Admin: 03/15/18 00:14 Dose: 4 mg Pantoprazole Sodium (Protonix Ec Tab) 40 mg PO 0600 [facility] Last Admin: 03/16/18 05:05 Dose: 40 mg Rifaximin (Xifaxan) 550 mg PO BID [facility] PRN Reason: Protocol Last Admin: 03/16/18 09:34 Dose: 550 mg Spironolactone (Aldactone) 100 mg PO DAILY [facility] Last Admin: 03/16/18 09:34 Dose: 100 mg Sucralfate (Carafate Tab) 1 gm PO 0600,1600 [facility] Last Admin: 03/16/18 05:05 Dose: 1 gm - Labs Labs: 03/16/18 06:20 03/16/18 06:20 PT 19.8 SECONDS (9.4-12.5) H 03/16/18 10:45 INR 1.70 (0.93-1.08) H 03/16/18 10:45 APTT 38.3 Seconds (25.1-36.5) H 03/11/18 18:45 Attending/Attestation - Attestation I have personally seen and examined this patient.: Yes I have fully participated in the care of the patient.: Yes I have reviewed all pertinent clinical information, including history, physical exam and plan: Yes Notes (Text): I have seen and examined the patient at bedside. Agree with the above note with the following additions/ exceptions: Briefly this is 62 year old male with history of end stage liver disease, Known and untreated Hep C, cirrhosis, DM-2, thrombocytopenia, non compliance with medications who was initially admitted for hepatic encephalopathy which was improving. 2 days ago [employer] was called and patient was found to have large intra cranial hemorrhage with midline shift. Patient was intubated for airway protection. He was given hypertonic saline and mannitol . He was also given FFP and platelets. Repeat Head CT noted. Currently patient is off sedation. He remains unresponsive and does not follow simple commands. Neurologist and neurosurgeon on board. No neuro intervention planned at this time. Overall prognosis is extremely poor. Will consult palliative care tomorrow.
[2018-03-16] MEDS: Insulin Lispro (HUMAlog) HIGH Coverage SC SCH ×4 (08:05→21:58)
[2018-03-16] MEDS: Insulin Lispro (humaLOG) MIX 75/25(10 ml) SC SCH ×2 (08:07→17:10)
--- NOTE | 2018-03-16 08:49 | RAD ---
HISTORY: vent COMPARISON: 03/15/2018 FINDINGS: LUNGS: No active pulmonary disease. The endotracheal tube and nasogastric tube are in satisfactory position PLEURA: No significant pleural effusion identified, no pneumothorax apparent. CARDIOVASCULAR: Normal. OSSEOUS STRUCTURES: No significant abnormalities. VISUALIZED UPPER ABDOMEN: Normal. OTHER FINDINGS: None. IMPRESSION: No active disease.
[2018-03-16] MEDS: levETIRAcetam 500mg IVPB 500 MG/100 ML BAG IV SCH ×2 (09:34→21:58)
--- NOTE | 2018-03-16 10:00 | CT ---
PROCEDURE: CT HEAD WITHOUT CONTRAST. HISTORY: encephalopathy COMPARISON: CT 03/15/2018 TECHNIQUE: Axial computed tomography images were obtained through the head/brain without intravenous contrast. Radiation dose: Total exam DLP = 874 mGy-cm. This CT exam was performed using one or more of the following dose reduction techniques: Automated exposure control, adjustment of the mA and/or kV according to patient size, and/or use of iterative reconstruction technique. FINDINGS: HEMORRHAGE: There is a large left parietal and frontal intraparenchymal hemorrhage measuring 4.6 by 7.8 cm. In the coronal plane it measures 7.9 cm in height. There is surrounding edema. There is mass effect with 11 mm of midline shift. Blood is also seen in the right occipital horn. Subarachnoid blood is now seen over the surface of the right parietal lobe. BRAIN: As above VENTRICLES: Unremarkable. No hydrocephalus. CALVARIUM: Unremarkable. PARANASAL SINUSES: Unremarkable as visualized. No significant inflammatory changes. MASTOID AIR CELLS: Unremarkable as visualized. No inflammatory changes. OTHER FINDINGS: None. IMPRESSION: No significant change in massive hemorrhage in the left parietal lobe extending to the cortical surface and the lateral ventricle. 11 mm of midline shift. New subarachnoid hemorrhage over the right hemisphere
--- NOTE | 2018-03-16 10:33 | CP.PCM.CON ---
History of Present Illness - History of Present Illness History of Present Illness: spoke w family at length min residual neurologic function severe thrombocytopenia and coagulopathy rec consideration withdrawal of aggressive care family contemplating Past Patient History - Infectious Disease Hx of Infectious Diseases: None - Tetanus Immunizations Tetanus Immunization: Unknown - Past Medical History & Family History Past Medical History?: Yes - Past Social History Smoking Status: Light Smoker < 10 Cigarettes Daily - CARDIAC Hx Atrial Fibrillation: No - PULMONARY Hx Respiratory Disorders: No - NEUROLOGICAL Hx Neurological Disorder: No - HEENT Hx HEENT Problems: No - RENAL Hx Chronic Kidney Disease: No - ENDOCRINE/METABOLIC Hx Diabetes Mellitus Type 1: Yes - HEMATOLOGICAL/ONCOLOGICAL Hx Cirrhosis: Yes Hx Hepatitis C: Yes Other/Comment: Inguinal hernia - INTEGUMENTARY Hx Dermatological Problems: No - MUSCULOSKELETAL/RHEUMATOLOGICAL Hx Musculoskeletal Disorders: No Hx Falls: Yes - GASTROINTESTINAL Hx Gastrointestinal Disorders: Yes Other/Comment: Liver Disease - GENITOURINARY/GYNECOLOGICAL Hx Genitourinary Disorders: No - PSYCHIATRIC Hx Psychophysiologic Disorder: No Hx Substance Use: No - SURGICAL HISTORY Hx Surgeries: No - ANESTHESIA Hx Anesthesia: No Hx Anesthesia Reactions: No Meds Home Medications: Home Medication List Medication Instructions Recorded Confirmed Type Furosemide [Lasix] 40 mg PO DAILY #30 tablet 03/14/18 Rx Lactulose [Enulose] 30 gm PO TID #90 udc 03/14/18 Rx Pantoprazole [Protonix EC Tab] 40 mg PO 0600 #30 ect 03/14/18 Rx Spironolactone [Aldactone] 100 mg PO DAILY #30 tablet 03/14/18 Rx rifAXIMin [Xifaxan] 550 mg PO BID #60 tab 03/14/18 Rx Allergies/Adverse Reactions: Allergies Allergy/AdvReac Type Severity Reaction Status Date / Time No Known Allergies Allergy Verified 01/08/18 20:25 - Medications Medications: Current Medications Furosemide (Lasix) 40 mg PO DAILY [facility] Last Admin: 03/16/18 09:35 Dose: 40 mg Propofol (Diprivan) 1,000 mg in 100 mls @ 1.932 mls/hr IV .Q24H PRN; Protocol; 5 MCG/KG/MIN PRN Reason: TITRATE PER MD ORDER Last Admin: 03/16/18 04:03 Dose: 20 mcg/kg/min, 7.729 mls/hr Sodium Chloride (Hypertonic Saline 3%) 500 mls @ 30 mls/hr IV .[id number] [facility] Last Admin: 03/15/18 10:50 Dose: 30 mls/hr Levetiracetam (Keppra 500mg Ivpb) 500 mg in 100 mls @ 400 mls/hr IV Q12 [facility] Last Admin: 03/16/18 09:34 Dose: 400 mls/hr Insulin Human Lispro (Humalog High) 0 units SC ACHS [facility] PRN Reason: Protocol Last Admin: 03/16/18 08:05 Dose: 10 units Insulin Lispro Protam/Lispro Human (Humalog Mix 75/25) 15 units SC BIDAC [facility] Last Admin: 03/16/18 08:07 Dose: Not Given Labetalol HCl (Trandate) 10 mg IV Q4 PRN PRN Reason: Blood Pressure 220/110 & above Lactulose (Enulose) 30 gm PO TID [facility] Last Admin: 03/16/18 09:34 Dose: 30 gm Levothyroxine Sodium (Synthroid) 50 mcg PO 0600 [facility] Last Admin: 03/16/18 05:05 Dose: 50 mcg Mannitol (Mannitol) 17 gm IV Q8H [facility] Last Admin: 03/16/18 05:47 Dose: 17 gm Ondansetron HCl (Zofran Inj) 4 mg IVP Q6H PRN PRN Reason: Nausea/Vomiting Last Admin: 03/15/18 00:14 Dose: 4 mg Pantoprazole Sodium (Protonix Ec Tab) 40 mg PO 0600 [facility] Last Admin: 03/16/18 05:05 Dose: 40 mg Rifaximin (Xifaxan) 550 mg PO BID [facility] PRN Reason: Protocol Last Admin: 03/16/18 09:34 Dose: 550 mg Spironolactone (Aldactone) 100 mg PO DAILY [facility] Last Admin: 03/16/18 09:34 Dose: 100 mg Sucralfate (Carafate Tab) 1 gm PO 0600,1600 [facility] Last Admin: 03/16/18 05:05 Dose: 1 gm Results - Vital Signs Recent Vital Signs: Last Vital Signs Temp 99.9 F H 03/16/18 05:00 Pulse 101 H 03/16/18 09:00 Resp 16 03/15/18 23:00 BP 117/70 03/16/18 09:35 Pulse Ox 95 03/16/18 08:40 - Labs Result Diagrams: 03/16/18 06:20 03/16/18 06:20 Labs: Laboratory Results - last 24 hr 03/15/18 03/15/18 03/15/18 03:30 03:30 11:06 WBC RBC Hgb Hct MCV MCH MCHC RDW Plt Count Manual Plt Count MPV Gran % Lymph % (Auto) [place] % (Auto) Eos % (Auto) Baso % (Auto) Gran # Lymph # (Auto) [place] # (Auto) Eos # (Auto) Baso # (Auto) pCO2 pO2 HCO3 ABG pH ABG Total CO2 ABG O2 Saturation ABG O2 Content ABG Base Excess ABG Hemoglobin ABG Carboxyhemoglobin POC ABG HHb (Measured) ABG Methemoglobin ABG O2 Capacity Hgb O2 Saturation FiO2 Sodium Potassium Chloride Carbon Dioxide Anion Gap BUN Creatinine Est GFR ( Amer) Est GFR (Non-Af Amer) POC Glucose (mg/dL) 316 H Random Glucose Serum Osmolality Calcium C-React Prot High Sens > 15.00 H Vitamin B12 > 1000 H 03/15/18 03/15/18 03/15/18 14:20 14:20 16:23 WBC RBC Hgb Hct MCV MCH MCHC RDW Plt Count Manual Plt Count MPV Gran % Lymph % (Auto) [place] % (Auto) Eos % (Auto) Baso % (Auto) Gran # Lymph # (Auto) [place] # (Auto) Eos # (Auto) Baso # (Auto) pCO2 pO2 HCO3 ABG pH ABG Total CO2 ABG O2 Saturation ABG O2 Content ABG Base Excess ABG Hemoglobin ABG Carboxyhemoglobin POC ABG HHb (Measured) ABG Methemoglobin ABG O2 Capacity Hgb O2 Saturation FiO2 Sodium 148 Potassium 3.4 L Chloride 111 H Carbon Dioxide 19 L Anion Gap 21 H BUN 11 Creatinine 0.5 L Est GFR ( Amer) > 60 Est GFR (Non-Af Amer) > 60 POC Glucose (mg/dL) 291 H Random Glucose 333 H* Serum Osmolality 313 H Calcium 8.7 C-React Prot High Sens Vitamin B12 03/15/18 03/15/18 03/15/18 21:10 21:10 22:16 WBC RBC Hgb Hct MCV MCH MCHC RDW Plt Count Manual Plt Count MPV Gran % Lymph % (Auto) [place] % (Auto) Eos % (Auto) Baso % (Auto) Gran # Lymph # (Auto) [place] # (Auto) Eos # (Auto) Baso # (Auto) pCO2 pO2 HCO3 ABG pH ABG Total CO2 ABG O2 Saturation ABG O2 Content ABG Base Excess ABG Hemoglobin ABG Carboxyhemoglobin POC ABG HHb (Measured) ABG Methemoglobin ABG O2 Capacity Hgb O2 Saturation FiO2 Sodium 149 H Potassium 3.5 L Chloride 113 H Carbon Dioxide 23 Anion Gap 17 BUN 12 Creatinine 0.5 L Est GFR ( Amer) > 60 Est GFR (Non-Af Amer) > 60 POC Glucose (mg/dL) 305 H Random Glucose 303 H* Serum Osmolality 314 H Calcium 8.6 C-React Prot High Sens Vitamin B12 03/16/18 03/16/18 03/16/18 02:10 02:10 05:00 WBC RBC Hgb Hct MCV MCH MCHC RDW Plt Count Manual Plt Count MPV Gran % Lymph % (Auto) [place] % (Auto) Eos % (Auto) Baso % (Auto) Gran # Lymph # (Auto) [place] # (Auto) Eos # (Auto) Baso # (Auto) pCO2 34 L pO2 136.0 H HCO3 23.6 ABG pH 7.45 ABG Total CO2 24.6 ABG O2 Saturation 99.8 H ABG O2 Content 16.7 ABG Base Excess 0.0 ABG Hemoglobin 12.1 ABG Carboxyhemoglobin 2.0 H POC ABG HHb (Measured) 0.2 ABG Methemoglobin 0.8 ABG O2 Capacity 16.7 Hgb O2 Saturation 97.0 FiO2 40.0 Sodium 151 H Potassium 3.8 Chloride 115 H Carbon Dioxide 24 Anion Gap 16 BUN 13 Creatinine 0.5 L Est GFR ( Amer) > 60 Est GFR (Non-Af Amer) > 60 POC Glucose (mg/dL) Random Glucose 330 H* Serum Osmolality 320 H Calcium 8.6 C-React Prot High Sens Vitamin B12 03/16/18 03/16/18 06:20 06:20 WBC 5.8 RBC 3.66 Hgb 10.8 L D Hct 32.7 L MCV 89.3 MCH 29.5 MCHC 33.0 RDW 16.9 H Plt Count 47 L* Manual Plt Count 48 L* MPV 10.5 Gran % 81.5 H Lymph % (Auto) 6.0 L [place] % (Auto) 12.5 H Eos % (Auto) 0.0 L Baso % (Auto) 0.0 Gran # 4.75 Lymph # (Auto) 0.4 L [place] # (Auto) 0.7 H Eos # (Auto) 0.0 Baso # (Auto) 0.00 pCO2 pO2 HCO3 ABG pH ABG Total CO2 ABG O2 Saturation ABG O2 Content ABG Base Excess ABG Hemoglobin ABG Carboxyhemoglobin POC ABG HHb (Measured) ABG Methemoglobin ABG O2 Capacity Hgb O2 Saturation FiO2 Sodium 150 H Potassium 3.8 Chloride 115 H Carbon Dioxide 23 Anion Gap 16 BUN 13 Creatinine 0.6 L Est GFR ( Amer) > 60 Est GFR (Non-Af Amer) > 60 POC Glucose (mg/dL) Random Glucose 356 H* Serum Osmolality Calcium 8.5 C-React Prot High Sens Vitamin B12
--- NOTE | 2018-03-16 10:54 | CP.PCM.PN ---
Subjective - Date & Time of Evaluation Date of Evaluation: 03/16/18 Time of Evaluation: 07:30 - Subjective Subjective: Patient seen and examined on rounds, intubated, sedated. Objective - Vital Signs/Intake and Output Vital Signs (last 24 hours): Temp Pulse Resp BP Pulse Ox 99.9 F H 101 H 16 117/70 95 03/16/18 05:00 03/16/18 09:00 03/15/18 23:00 03/16/18 09:35 03/16/18 08:40 Intake and Output: 03/16/18 03/16/18 06:59 18:59 Intake Total 668 Output Total 550 Balance 118 - Medications Medications: Current Medications Furosemide (Lasix) 40 mg PO DAILY [facility] Last Admin: 03/16/18 09:35 Dose: 40 mg Propofol (Diprivan) 1,000 mg in 100 mls @ 1.932 mls/hr IV .Q24H PRN; Protocol; 5 MCG/KG/MIN PRN Reason: TITRATE PER MD ORDER Last Admin: 03/16/18 04:03 Dose: 20 mcg/kg/min, 7.729 mls/hr Sodium Chloride (Hypertonic Saline 3%) 500 mls @ 30 mls/hr IV .[id number] [facility] Last Admin: 03/15/18 10:50 Dose: 30 mls/hr Levetiracetam (Keppra 500mg Ivpb) 500 mg in 100 mls @ 400 mls/hr IV Q12 [facility] Last Admin: 03/16/18 09:34 Dose: 400 mls/hr Insulin Human Lispro (Humalog High) 0 units SC ACHS [facility] PRN Reason: Protocol Last Admin: 03/16/18 08:05 Dose: 10 units Insulin Lispro Protam/Lispro Human (Humalog Mix 75/25) 15 units SC BIDAC [facility] Last Admin: 03/16/18 08:07 Dose: Not Given Labetalol HCl (Trandate) 10 mg IV Q4 PRN PRN Reason: Blood Pressure 220/110 & above Lactulose (Enulose) 30 gm PO TID [facility] Last Admin: 03/16/18 09:34 Dose: 30 gm Levothyroxine Sodium (Synthroid) 50 mcg PO 0600 [facility] Last Admin: 03/16/18 05:05 Dose: 50 mcg Mannitol (Mannitol) 17 gm IV Q8H [facility] Last Admin: 03/16/18 05:47 Dose: 17 gm Ondansetron HCl (Zofran Inj) 4 mg IVP Q6H PRN PRN Reason: Nausea/Vomiting Last Admin: 03/15/18 00:14 Dose: 4 mg Pantoprazole Sodium (Protonix Ec Tab) 40 mg PO 0600 [facility] Last Admin: 03/16/18 05:05 Dose: 40 mg Rifaximin (Xifaxan) 550 mg PO BID [facility] PRN Reason: Protocol Last Admin: 03/16/18 09:34 Dose: 550 mg Spironolactone (Aldactone) 100 mg PO DAILY [facility] Last Admin: 03/16/18 09:34 Dose: 100 mg Sucralfate (Carafate Tab) 1 gm PO 0600,1600 [facility] Last Admin: 03/16/18 05:05 Dose: 1 gm - Labs Labs: 03/16/18 06:20 03/16/18 06:20 PT 20.7 SECONDS (9.4-12.5) H 03/14/18 07:00 INR 1.78 (0.93-1.08) H 03/14/18 07:00 APTT 38.3 Seconds (25.1-36.5) H 03/11/18 18:45 - Constitutional Appears: Toxic, Older Than Stated Age, Cachectic, Chronically Ill - ENT Exam ENT Exam: Mucous Membranes Moist - Respiratory Exam Respiratory Exam: Clear to Ausculation Bilateral, NORMAL BREATHING PATTERN - Cardiovascular Exam Cardiovascular Exam: REGULAR RHYTHM, +S1, +S2 - GI/Abdominal Exam GI & Abdominal Exam: Soft, Normal Bowel Sounds - Extremities Exam Extremities Exam: Normal Inspection - Neurological Exam Additional comments: does not withdraw to pain, neg dolls eyes pupils minimally reactive Assessment and Plan - Assessment and Plan (Free Text) Assessment: Patient is 62yo male with PMhx of end stage liver disease, Hep C, Cirrhosis, DM , non compliance,admitted with large L IPH/CVA, with midline shirt, neurosurgery consulted, no acute surgical intervention. Pt unable to protect airway, intubated for airway protection. Pt currently afebrile, HD stable. Patient started on 3% saline drip, Neurology consulted. Overall prognosis is extremely poor. I had an extensive conversation today with family, , and sister, along with Dr Darling, regarding the clinical status, and overall extremely poor prognosis. ICH with midline shift Hep C Cirrhosis DM Recommend: - cont with vent support, low tidal vol ventilation, oxygenation acceptable - panculture, UCx, BCx, procal - BP control, goal SBP <140 - follow up neurology, neurosurgery - goal Na 145-150 - Mannitol - Keppra IV - lacutlose - monitor INR, HH - GI ppx - DVT ppx, SCDs - Overall prognosis is extremely poor, family considering palliative options, would like to speak to other family members first critical care time 40 minutes
[2018-03-16 11:04] LABS: INR 1.7 (0.93-1.08); PROTHROMBIN TIME 19.8 SECONDS (9.4-12.5)
[2018-03-17] MEDS: Pantoprazole 40 mg EC Tab PO SCH (05:02)
[2018-03-17] MEDS: Levothyroxine 50 MCG TAB PO SCH (05:02)
[2018-03-17] MEDS: Mannitol 12.5 gm/50 ml Inj IV SCH ×3 (05:44→22:32)
[2018-03-17 05:52] LABS: ARTERIAL BLOOD GAS HCO3 21.7 mmol/L (21-28); ARTERIAL BLOOD GAS HEMOGLOBIN 10.7 g/dL (11.7-17.4); ARTERIAL BLOOD GAS O2 CAPACITY 14.7 mL/dl (16-24); ARTERIAL BLOOD GAS O2 CONTENT 14.8 ML/dl (15-23); ARTERIAL BLOOD GAS O2 SAT 100.4 % (95-98); ARTERIAL BLOOD GAS PCO2 32 mm/Hg (35-45); ARTERIAL BLOOD GAS PH 7.44 (7.35-7.45); ARTERIAL BLOOD GAS TCO2 22.7 mmol.L (22-28)
[2018-03-17 06:59] LABS: BASO # 0.01 K/mm3 (0.0-2.0); BASO % 0.2 % (0.0-3.0); EOS % 0.4 % (1.5-5.0); GRAN # 4.33 (1.4-6.5); GRAN % 79.1 % (50.0-68.0); HEMOGLOBIN 11.3 g/dL (14.0-18.0); LYMPH # 0.3 (1.2-3.4); LYMPH % 4.9 % (22.0-35.0); MEAN CORPUSCULAR HEMOGLOBIN 29.1 pg (25.0-35.0); MEAN PLATELET VOLUME 10.2 fl (7.0-11.0); MONO # 0.8 (0.1-0.6); MONO % 15.4 % (1.0-6.0); PLATELET COUNT 53 10^3/uL (120.0-450.0); RBC 3.88 10^6/uL (3.5-6.1); RED CELL DISTRIBUTION WIDTH 17.6 % (11.5-14.5); WHITE BLOOD COUNT 5.5 10^3/ul (4.5-11.0)
[2018-03-17 07:26] LABS: ALB/GLOB RATIO 0.7 (1.1-1.8); ALBUMIN 2.5 g/dL (3.0-4.8); ALT/SGPT 33 U/L (7-56); AST/SGOT 47 U/L (17-59); BLOOD UREA NITROGEN 19 mg/dL (7-21); CALCIUM 8.9 mg/dL (8.4-10.5); GFR AFRICAN-AMERICAN > 60; GFR NON-AFRICAN AMERICAN > 60
--- NOTE | 2018-03-17 07:48 | CP.PCM.PN ---
<Mckenna Huff - Last Filed: 03/17/18 12:58> Subjective - Date & Time of Evaluation Date of Evaluation: 03/17/18 Time of Evaluation: 07:00 - Subjective Subjective: PGY2 Neuro progress note for Dr. Bobby Patient seen and examined at bedside. No acute events overnight. Remains intubated, not on any sedation, with no movement. GCS-3T. No clinical change this AM. Objective - Vital Signs/Intake and Output Vital Signs (last 24 hours): Temp Pulse Resp BP Pulse Ox 99.0 F 109 H 26 H 130/65 100 03/16/18 13:09 03/17/18 06:02 03/16/18 11:00 03/17/18 06:02 03/17/18 06:02 - Medications Medications: Current Medications Furosemide (Lasix) 40 mg PO DAILY [facility] Last Admin: 03/16/18 09:35 Dose: 40 mg Propofol (Diprivan) 1,000 mg in 100 mls @ 1.932 mls/hr IV .Q24H PRN; Protocol; 5 MCG/KG/MIN PRN Reason: TITRATE PER MD ORDER Last Titration: 03/16/18 09:30 Dose: 0 mcg/kg/min, 0 mls/hr Sodium Chloride (Hypertonic Saline 3%) 500 mls @ 30 mls/hr IV .[id number] [facility] Last Admin: 03/15/18 10:50 Dose: 30 mls/hr Levetiracetam (Keppra 500mg Ivpb) 500 mg in 100 mls @ 400 mls/hr IV Q12 [facility] Last Admin: 03/16/18 21:58 Dose: 400 mls/hr Insulin Human Lispro (Humalog High) 0 units SC ACHS [facility] PRN Reason: Protocol Last Admin: 03/16/18 21:58 Dose: 15 units Insulin Lispro Protam/Lispro Human (Humalog Mix 75/25) 15 units SC BIDAC [facility] Last Admin: 03/16/18 17:10 Dose: Not Given Labetalol HCl (Trandate) 10 mg IV Q4 PRN PRN Reason: Blood Pressure 220/110 & above Lactulose (Enulose) 30 gm PO TID [facility] Last Admin: 03/16/18 17:07 Dose: 30 gm Levothyroxine Sodium (Synthroid) 50 mcg PO 0600 [facility] Last Admin: 03/17/18 05:02 Dose: 50 mcg Mannitol (Mannitol) 17 gm IV Q8H [facility] Last Admin: 03/17/18 05:44 Dose: 17 gm Ondansetron HCl (Zofran Inj) 4 mg IVP Q6H PRN PRN Reason: Nausea/Vomiting Last Admin: 03/15/18 00:14 Dose: 4 mg Pantoprazole Sodium (Protonix Ec Tab) 40 mg PO 0600 [facility] Last Admin: 03/17/18 05:02 Dose: 40 mg Rifaximin (Xifaxan) 550 mg PO BID [facility] PRN Reason: Protocol Last Admin: 03/16/18 17:07 Dose: 550 mg Spironolactone (Aldactone) 100 mg PO DAILY [facility] Last Admin: 03/16/18 09:34 Dose: 100 mg Sucralfate (Carafate Tab) 1 gm PO 0600,1600 [facility] Last Admin: 03/17/18 05:02 Dose: 1 gm - Labs Labs: 03/17/18 06:40 03/17/18 06:40 PT 19.8 SECONDS (9.4-12.5) H 03/16/18 10:45 INR 1.70 (0.93-1.08) H 03/16/18 10:45 APTT 38.3 Seconds (25.1-36.5) H 03/11/18 18:45 - Constitutional Appears: Cachectic, Chronically Ill - Head Exam Head Exam: NORMAL INSPECTION - Eye Exam Eye Exam: absent: EOMI, PERRL Pupil Exam: Fixed, Miosis. absent: PERRL - ENT Exam ENT Exam: Mucous Membranes Dry Additional comments: ET tube in place - Respiratory Exam Additional comments: intubated on vent - Cardiovascular Exam Cardiovascular Exam: Tachycardia - GI/Abdominal Exam GI & Abdominal Exam: Soft Additional comments: NGT in place - Neurological Exam Neurological Exam: absent: Alert, Awake, CN II-XII Intact, Oriented x3, Reflexes Normal Additional comments: GCS-3T No corneal No pain Weak gag Fixed pupils No response on sedation vacation No pupillary light reflex - Skin Skin Exam: Dry, Intact Assessment and Plan - Assessment and Plan (Free Text) Assessment: 62yo male PMHx End stage liver disease, Hep C, cirrhosis, DM, non compliance, transferred to ICU with massive hemorrhagic CVA Plan: -f/u EEG which was done this AM -Head CT 03/15: showed massive hemorrhage in left partietal lobe extending to cortical surface with 11mm of midline shift -Head CT 03/16: new subarachnoid hemorrhage over the right hemisphere -ICH score: 4 - 97% mortality- poor prognosis -Neurosurgery consult: No surgical intervention, poor prognosis -continue mannitol and keppra -treat electrolyte abnl and maintain euglycemia and normothermia -maintain HoB above 30degrees -recommend palliative care Discussed with Dr. Kanu Huff PGY2 <Bandar Bobby - Last Filed: 03/17/18 21:22> Objective - Vital Signs/Intake and Output Vital Signs (last 24 hours): Temp Pulse Resp BP Pulse Ox 98.6 F 89 20 135/72 100 03/17/18 16:00 03/17/18 18:00 03/17/18 16:00 03/17/18 18:00 03/17/18 18:00 Intake and Output: 03/17/18 03/18/18 18:59 06:59 Intake Total 300 40 Output Total 550 Balance -250 40 - Medications Medications: Current Medications Propofol (Diprivan) 1,000 mg in 100 mls @ 1.932 mls/hr IV .Q24H PRN; Protocol; 5 MCG/KG/MIN PRN Reason: TITRATE PER MD ORDER Last Titration: 03/16/18 09:30 Dose: 0 mcg/kg/min, 0 mls/hr Sodium Chloride (Hypertonic Saline 3%) 500 mls @ 30 mls/hr IV .[id number] [facility] Last Admin: 03/15/18 10:50 Dose: 30 mls/hr Levetiracetam (Keppra 500mg Ivpb) 500 mg in 100 mls @ 400 mls/hr IV Q12 [facility] Last Admin: 03/17/18 21:14 Dose: 400 mls/hr Insulin Human Regular 100 (units/ Sodium Chloride) 100 mls @ 2 mls/hr IV .Q24H PRN; Protocol; 2 UNITS/HR PRN Reason: TITRATE PER MD ORDER Last Titration: 03/17/18 21:10 Dose: 3 units/hr, 3 mls/hr Acetaminophen (Ofirmev) 1,000 mg in 100 mls @ 400 mls/hr IVPB Q6H PRN PRN Reason: Temperature Stop: 03/19/18 09:48 Last Admin: 03/17/18 09:59 Dose: 400 mls/hr Insulin Human Lispro (Humalog High) 0 units SC ACHS [facility] PRN Reason: Protocol Last Admin: 03/17/18 08:59 Dose: Not Given Insulin Lispro Protam/Lispro Human (Humalog Mix 75/25) 15 units SC BIDAC [facility] Last Admin: 03/17/18 08:59 Dose: Not Given Labetalol HCl (Trandate) 10 mg IV Q4 PRN PRN Reason: Blood Pressure 220/110 & above Lactulose (Enulose) 30 gm PO TID [facility] Last Admin: 03/17/18 17:48 Dose: 30 gm Levothyroxine Sodium (Synthroid) 75 mcg PO 0600 [facility] Mannitol (Mannitol) 17 gm IV Q8H [facility] Last Admin: 03/17/18 15:18 Dose: 17 gm Ondansetron HCl (Zofran Inj) 4 mg IVP Q6H PRN PRN Reason: Nausea/Vomiting Last Admin: 03/15/18 00:14 Dose: 4 mg Pantoprazole Sodium (Protonix Ec Tab) 40 mg PO 0600 [facility] Last Admin: 03/17/18 05:02 Dose: 40 mg Rifaximin (Xifaxan) 550 mg PO BID [facility] PRN Reason: Protocol Last Admin: 03/17/18 17:48 Dose: 550 mg Spironolactone (Aldactone) 100 mg PO DAILY [facility] Last Admin: 03/17/18 09:02 Dose: 100 mg Sucralfate (Carafate Tab) 1 gm PO 0600,1600 [facility] Last Admin: 03/17/18 17:45 Dose: Not Given - Labs Labs: 03/17/18 06:40 03/17/18 06:40 PT 19.8 SECONDS (9.4-12.5) H 03/16/18 10:45 INR 1.70 (0.93-1.08) H 03/16/18 10:45 APTT 38.3 Seconds (25.1-36.5) H 03/11/18 18:45 Attending/Attestation - Attestation I have personally seen and examined this patient.: Yes I have fully participated in the care of the patient.: Yes I have reviewed all pertinent clinical information, including history, physical exam and plan: Yes
[2018-03-17 08:29] LABS: BAND 3 % (0-2); LYMPHOCYTE 16 % (22.0-35.0); MONOCYTE 11 % (1.0-6.0); NEUTROPHIL 70 % (50.0-70.0)
--- NOTE | 2018-03-17 08:29 | CP.PCM.PN ---
<Jacinto Lea - Last Filed: 03/17/18 12:37> Subjective - Date & Time of Evaluation Date of Evaluation: 03/17/18 Time of Evaluation: 08:00 - Subjective Subjective: Medicine Note for Dr. Flores Patient seen and examined at bedside. No acute event overnight. No change clinically. Patient is intubated and on vent support. Bedside EEG being done this morning. Palliative care to speak with family for possible withdrawal of care due to poor prognosis. Objective - Vital Signs/Intake and Output Vital Signs (last 24 hours): Temp Pulse Resp BP Pulse Ox 99.0 F 109 H 19 130/65 99 03/16/18 13:09 03/17/18 06:02 03/17/18 07:59 03/17/18 06:02 03/17/18 07:59 - Medications Medications: Current Medications Furosemide (Lasix) 40 mg PO DAILY [facility] Last Admin: 03/16/18 09:35 Dose: 40 mg Propofol (Diprivan) 1,000 mg in 100 mls @ 1.932 mls/hr IV .Q24H PRN; Protocol; 5 MCG/KG/MIN PRN Reason: TITRATE PER MD ORDER Last Titration: 03/16/18 09:30 Dose: 0 mcg/kg/min, 0 mls/hr Sodium Chloride (Hypertonic Saline 3%) 500 mls @ 30 mls/hr IV .[id number] [facility] Last Admin: 03/15/18 10:50 Dose: 30 mls/hr Levetiracetam (Keppra 500mg Ivpb) 500 mg in 100 mls @ 400 mls/hr IV Q12 [facility] Last Admin: 03/16/18 21:58 Dose: 400 mls/hr Insulin Human Regular 100 (units/ Sodium Chloride) 100 mls @ 2 mls/hr IV .Q24H PRN; Protocol; 2 UNITS/HR PRN Reason: TITRATE PER MD ORDER Insulin Human Lispro (Humalog High) 0 units SC ACHS [facility] PRN Reason: Protocol Last Admin: 03/16/18 21:58 Dose: 15 units Insulin Lispro Protam/Lispro Human (Humalog Mix 75/25) 15 units SC BIDAC [facility] Last Admin: 03/16/18 17:10 Dose: Not Given Labetalol HCl (Trandate) 10 mg IV Q4 PRN PRN Reason: Blood Pressure 220/110 & above Lactulose (Enulose) 30 gm PO TID [facility] Last Admin: 03/16/18 17:07 Dose: 30 gm Levothyroxine Sodium (Synthroid) 50 mcg PO 0600 [facility] Last Admin: 03/17/18 05:02 Dose: 50 mcg Mannitol (Mannitol) 17 gm IV Q8H [facility] Last Admin: 03/17/18 05:44 Dose: 17 gm Ondansetron HCl (Zofran Inj) 4 mg IVP Q6H PRN PRN Reason: Nausea/Vomiting Last Admin: 03/15/18 00:14 Dose: 4 mg Pantoprazole Sodium (Protonix Ec Tab) 40 mg PO 0600 [facility] Last Admin: 03/17/18 05:02 Dose: 40 mg Rifaximin (Xifaxan) 550 mg PO BID [facility] PRN Reason: Protocol Last Admin: 03/16/18 17:07 Dose: 550 mg Spironolactone (Aldactone) 100 mg PO DAILY [facility] Last Admin: 03/16/18 09:34 Dose: 100 mg Sucralfate (Carafate Tab) 1 gm PO 0600,1600 [facility] Last Admin: 03/17/18 05:02 Dose: 1 gm - Labs Labs: 03/17/18 06:40 03/17/18 06:40 PT 19.8 SECONDS (9.4-12.5) H 03/16/18 10:45 INR 1.70 (0.93-1.08) H 03/16/18 10:45 APTT 38.3 Seconds (25.1-36.5) H 03/11/18 18:45 - Constitutional Appears: No Acute Distress, Other (intubated) - Head Exam Head Exam: ATRAUMATIC, NORMOCEPHALIC - Eye Exam Additional comments: pupils 2 mm and nonreactive - ENT Exam ENT Exam: Mucous Membranes Moist - Respiratory Exam Respiratory Exam: Decreased Breath Sounds Additional comments: intubated and on vent support - Cardiovascular Exam Cardiovascular Exam: Tachycardia - GI/Abdominal Exam GI & Abdominal Exam: Soft, Normal Bowel Sounds - Extremities Exam Extremities Exam: Normal Capillary Refill - Neurological Exam Neurological Exam: Altered Additional comments: GCS 3T, no corneal reflex, gag reflex present - Psychiatric Exam Psychiatric exam: Flat Affect - Skin Skin Exam: Dry, Warm Assessment and Plan - Assessment and Plan (Free Text) Assessment: 62 M with PMH of end stage liver disease, Hep C, Cirrhosis, DM, non compliance, intubated and transferred to ICU with SAH/CVA. Neuro (55) Head CT showed massive hemorrhage in left partietal lobe extending to cortical surface with 11mm of midline shift (5/6) head CT showed new subarachnoid hemorrhage over the right hemisphere Neurosurgery consult, no surgical intervention, poor prognosis Neurology consult, help appreciated Hold 3% saline Mannitol and keppra lactulose and rifaximin f/u ammonia Palliative care consult HOB 30 degrees Cardio Maintain MAP>65 Tachycardic Pulm Intubated and on vent support PRVC 450/16/5/40% Maintain sat > 90% GI NPO Continue sucralfate Renal Strict I's & O's Monitor Urine output ID febrile cooling blanket ofirmev Monitor Endo Synthroid 75 Insulin drip Maintain euglycemia 140-180 GI/DVT ppx: Protonix, no chemical anticoagulation Discussed with Dr. Sandra Lea PGY1 <Chetna Flores B - Last Filed: 03/17/18 15:58> Objective - Vital Signs/Intake and Output Vital Signs (last 24 hours): Temp Pulse Resp BP Pulse Ox 101.7 F H 125 H 20 155/71 H 97 03/17/18 12:00 03/17/18 12:00 03/17/18 12:00 03/17/18 12:00 03/17/18 12:00 Intake and Output: 03/17/18 03/17/18 06:59 18:59 Intake Total 200 Balance 200 - Medications Medications: Current Medications Propofol (Diprivan) 1,000 mg in 100 mls @ 1.932 mls/hr IV .Q24H PRN; Protocol; 5 MCG/KG/MIN PRN Reason: TITRATE PER MD ORDER Last Titration: 03/16/18 09:30 Dose: 0 mcg/kg/min, 0 mls/hr Sodium Chloride (Hypertonic Saline 3%) 500 mls @ 30 mls/hr IV .[id number] [facility] Last Admin: 03/15/18 10:50 Dose: 30 mls/hr Levetiracetam (Keppra 500mg Ivpb) 500 mg in 100 mls @ 400 mls/hr IV Q12 [facility] Last Admin: 03/17/18 09:03 Dose: 400 mls/hr Insulin Human Regular 100 (units/ Sodium Chloride) 100 mls @ 2 mls/hr IV .Q24H PRN; Protocol; 2 UNITS/HR PRN Reason: TITRATE PER MD ORDER Last Admin: 03/17/18 14:20 Dose: 4 units/hr, 4 mls/hr Acetaminophen (Ofirmev) 1,000 mg in 100 mls @ 400 mls/hr IVPB Q6H PRN PRN Reason: Temperature Stop: 03/19/18 09:48 Last Admin: 03/17/18 09:59 Dose: 400 mls/hr Insulin Human Lispro (Humalog High) 0 units SC ACHS [facility] PRN Reason: Protocol Last Admin: 03/17/18 08:59 Dose: Not Given Insulin Lispro Protam/Lispro Human (Humalog Mix 75/25) 15 units SC BIDAC [facility] Last Admin: 03/17/18 08:59 Dose: Not Given Labetalol HCl (Trandate) 10 mg IV Q4 PRN PRN Reason: Blood Pressure 220/110 & above Lactulose (Enulose) 30 gm PO TID [facility] Last Admin: 03/17/18 14:52 Dose: 30 gm Levothyroxine Sodium (Synthroid) 75 mcg PO 0600 [facility] Mannitol (Mannitol) 17 gm IV Q8H [facility] Last Admin: 03/17/18 15:18 Dose: 17 gm Ondansetron HCl (Zofran Inj) 4 mg IVP Q6H PRN PRN Reason: Nausea/Vomiting Last Admin: 03/15/18 00:14 Dose: 4 mg Pantoprazole Sodium (Protonix Ec Tab) 40 mg PO 0600 [facility] Last Admin: 03/17/18 05:02 Dose: 40 mg Rifaximin (Xifaxan) 550 mg PO BID [facility] PRN Reason: Protocol Last Admin: 03/17/18 09:02 Dose: 550 mg Spironolactone (Aldactone) 100 mg PO DAILY [facility] Last Admin: 03/17/18 09:02 Dose: 100 mg Sucralfate (Carafate Tab) 1 gm PO 0600,1600 [facility] Last Admin: 03/17/18 05:02 Dose: 1 gm - Labs Labs: 03/17/18 06:40 03/17/18 06:40 PT 19.8 SECONDS (9.4-12.5) H 03/16/18 10:45 INR 1.70 (0.93-1.08) H 03/16/18 10:45 APTT 38.3 Seconds (25.1-36.5) H 03/11/18 18:45 Attending/Attestation - Attestation I have personally seen and examined this patient.: Yes I have fully participated in the care of the patient.: Yes I have reviewed all pertinent clinical information, including history, physical exam and plan: Yes Notes (Text): I have seen and examined the patient at bedside. Agree with the above note with the following additions/ exceptions: Briefly this is 62 year old male with history of end stage liver disease, Known and untreated Hep C, cirrhosis, DM-2, thrombocytopenia, non compliance with medications who was initially admitted for hepatic encephalopathy. 3 days ago patient was found to have large intra cranial hemorrhage with midline shift. Patient was intubated for airway protection. He was given hypertonic saline and mannitol . He was also given FFP and platelets. Repeat Head CT noted. Currently patient is off sedation. He remains unresponsive and does not follow simple commands. Continue keppra. Neurologist and neurosurgeon on board. No neuro intervention planned at this time. Overall prognosis is extremely poor and this was discussed with the family. Awaiting palliative care consult.
[2018-03-17 08:32] LABS: PLATELET ESTIMATE LOW (NORMAL)
[2018-03-17] MEDS: Insulin Lispro (humaLOG) MIX 75/25(10 ml) SC SCH (08:59)
[2018-03-17] MEDS: Insulin Lispro (HUMAlog) HIGH Coverage SC SCH (08:59)
[2018-03-17] MEDS: levETIRAcetam 500mg IVPB 500 MG/100 ML BAG IV SCH ×2 (09:03→21:14)
--- NOTE | 2018-03-17 09:08 | RAD ---
HISTORY: vent COMPARISON: 03/16/2018 FINDINGS: LUNGS: No active pulmonary disease. PLEURA: No significant pleural effusion identified, no pneumothorax apparent. CARDIOVASCULAR: Normal. OSSEOUS STRUCTURES: No significant abnormalities. VISUALIZED UPPER ABDOMEN: Normal. OTHER FINDINGS: Endotracheal and nasogastric tubes remain in satisfactory position IMPRESSION: No active disease.
[2018-03-17] MEDS: Insulin Regular 100 UNITS in Sodium Chloride 0.9% 99 ML IV PRN ×3 (09:18→14:20)
--- NOTE | 2018-03-17 09:53 | CON ---
HISTORY OF PRESENT ILLNESS: I was contacted emergently that the patient with severe cirrhosis came in with altered mental status, right-sided weakness, was found to have a left intraparenchymal hemorrhage with fair amount of subarachnoid hemorrhage, shift, mass effect, etc. The patient's platelet count is 34,000. His INR is 1.8. I had a discussion with Dr. Boyle and told him that there is as of nothing that can be done surgically/interventionally unless his platelets and coagulation are normalized, which is my experience in a patient with severe cirrhosis is impossible. At the present time, I would recommend medical management, head of bed elevation, dehydration. I indicated that if the critical care staff felt they were able to correct his severe thrombocytopenia and coagulopathy to contact me. Justino Darling MD
--- NOTE | 2018-03-17 10:58 | CP.CCUPN ---
<Tommy Mcconnell - Last Filed: 03/17/18 10:43> CCU Subjective - Physician Review Subjective (Free Text): 03/17/18 11:01 Tommy Mcconnell D.O. PGY-2, Internal Medicine Resident, Critical Care Progress Note 62 year old male with a PMH of end stage liver disease, Hep C, Cirrhosis, DM, non compliance, admitted with large L IPH/CVA. Patient was seen and examined at bedside. Intubated with no movements despite being off sedation. No overnight events. CCU Objective - Vital Signs / Intake & Output Vital Signs (Last 4 hours): Vital Signs Temp Pulse Resp BP Pulse Ox 03/17/18 10:20 121 H 95 03/17/18 10:10 123 H 95 03/17/18 10:00 123 H 159/76 H 94 L 03/17/18 09:50 118 H 95 03/17/18 09:40 123 H 95 03/17/18 09:30 122 H 95 03/17/18 09:20 120 H 95 03/17/18 09:10 120 H 95 03/17/18 09:03 155/72 H 03/17/18 09:00 121 H 155/72 H 98 03/17/18 08:50 123 H 98 03/17/18 08:40 117 H 99 03/17/18 08:30 119 H 99 03/17/18 08:20 121 H 99 03/17/18 08:10 120 H 99 03/17/18 08:00 100.8 F H 120 H 20 154/75 H 98 03/17/18 07:59 19 99 03/17/18 07:50 119 H 99 03/17/18 07:40 113 H 100 03/17/18 07:30 112 H 100 03/17/18 07:20 115 H 100 03/17/18 07:10 116 H 100 03/17/18 07:00 113 H 149/70 100 03/17/18 06:50 113 H 100 Intake and Output (Last 8hrs): Intake & Output 03/16/18 03/17/18 03/17/18 22:59 06:59 14:59 Intake Total 354 100 Output Total 550 Balance -196 100 Intake: IV 174 100 keppra 100 mannitol 50 propofol 24 Tube Feeding 180 Output: Urine 550 Urethral (Serna) 550 Other: # Bowel Movements 0 - Physical Exam Head: Positive for: Atraumatic, Normocephalic Pupils: Positive for: Other (2mm non-responsive) Conjunctiva: Positive for: Normal. Negative for: Injected Ears: Positive for: Normal Mouth: Positive for: Moist Mucous Membranes, Other (intubated) Nose (External): Positive for: Atraumatic Neck: Positive for: Trachea Midline Respiratory/Chest: Positive for: Decreased Breath Sounds, Other (intubated) Cardiovascular: Positive for: Regular Rate and Rhythm, Normal S1, S2. Negative for: Murmurs, Tachycardic Abdomen: Positive for: Normal Bowel Sounds. Negative for: Tenderness, Distention, Peritoneal Signs, Rebound, Guarding, Mass/Organomegaly Upper Extremity: Positive for: Normal Inspection. Negative for: Cyanosis, Edema Lower Extremity: Positive for: Normal Inspection, NORMAL PULSES. Negative for: Edema, CALF TENDERNESS Neurological: Positive for: Other (GCS 3, gag present, no corneal relrex) Skin: Positive for: Warm, Dry, Normal Color. Negative for: Rashes - Medications Active Medications: Active Medications Generic Name Dose Route Start Last Admin Trade Name Freq PRN Reason Stop Dose Admin Propofol 1,000 mg in 100 mls @ 1.932 mls/hr 03/15/18 08:00 03/16/18 09:30 Diprivan IV 0 mcg/kg/min .Q24H PRN 0 mls/hr TITRATE PER MD ORDER Titration Protocol 5 MCG/KG/MIN Sodium Chloride 500 mls @ 30 mls/hr 03/15/18 09:45 03/15/18 10:50 Hypertonic Saline 3% IV 30 mls/hr .[id number] KAVIN Administration Levetiracetam 500 mg in 100 mls @ 400 mls/hr 03/15/18 12:00 03/17/18 09:03 Keppra 500mg Ivpb IV 400 mls/hr Q12 KAVIN Administration Insulin Human Regular 100 100 mls @ 2 mls/hr 03/17/18 07:59 03/17/18 10:12 units/ Sodium Chloride IV 6 units/hr .Q24H PRN 6 mls/hr TITRATE PER MD ORDER Administration Protocol 2 UNITS/HR Acetaminophen 1,000 mg in 100 mls @ 400 mls/hr 03/17/18 09:47 03/17/18 09:59 Ofirmev IVPB 03/19/18 09:48 400 mls/hr Q6H PRN Administration Temperature Insulin Human Lispro 0 units 03/13/18 11:30 03/17/18 08:59 Humalog High SC Not Given ACHS [facility] [place] Protocol Insulin Lispro Protam/Lispro Human 15 units 03/14/18 16:30 03/17/18 08:59 Humalog Mix 75/25 SC Not Given BIDAC [facility] [place] Labetalol HCl 10 mg 03/15/18 03:08 Trandate IV Q4 PRN Blood Pressure 220/110 & above Lactulose 30 gm 03/13/18 10:00 03/17/18 09:02 Enulose PO 30 gm TID [facility] [place] Administration Levothyroxine Sodium 75 mcg 03/17/18 09:51 Synthroid PO 0600 KAVIN Mannitol 17 gm 03/15/18 14:45 03/17/18 05:44 Mannitol IV 17 gm Q8H KAVIN Administration Ondansetron HCl 4 mg 03/14/18 23:32 03/15/18 00:14 Zofran Inj IVP 4 mg Q6H PRN Administration Nausea/Vomiting Pantoprazole Sodium 40 mg 03/14/18 06:00 03/17/18 05:02 Protonix Ec Tab PO 40 mg 0600 [facility] [place] Administration Rifaximin 550 mg 03/12/18 12:00 03/17/18 09:02 Xifaxan PO 550 mg BID [facility] [place] Administration Protocol Spironolactone 100 mg 03/12/18 10:00 03/17/18 09:02 Aldactone PO 100 mg DAILY [facility] [place] Administration Sucralfate 1 gm 03/14/18 16:00 03/17/18 05:02 Carafate Tab PO 1 gm 0600,1600 [facility] [place] Administration - Patient Studies Lab Studies: Microbiology Studies 03/15/18 09:25 MRSA Culture (Admit) - Final Naris MRSA NOT DETECTED Lab Studies 03/17/18 03/17/18 03/17/18 Range/Units 07:23 06:40 06:40 WBC 5.5 (4.5-11.0) 10^3/ul RBC 3.88 (3.5-6.1) 10^6/uL Hgb 11.3 L (14.0-18.0) g/dL Hct 35.3 L (42.0-52.0) % MCV 91.0 (80.0-105.0) fl MCH 29.1 (25.0-35.0) pg MCHC 32.0 (31.0-37.0) g/dl RDW 17.6 H (11.5-14.5) % Plt Count 53 L (120.0-450.0) 10^3/uL MPV 10.2 (7.0-11.0) fl Gran % 79.1 H (50.0-68.0) % Lymph % (Auto) 4.9 L (22.0-35.0) % [place] % (Auto) 15.4 H (1.0-6.0) % Eos % (Auto) 0.4 L (1.5-5.0) % Baso % (Auto) 0.2 (0.0-3.0) % Gran # 4.33 (1.4-6.5) Lymph # (Auto) 0.3 L (1.2-3.4) [place] # (Auto) 0.8 H (0.1-0.6) Eos # (Auto) 0.0 (0.0-0.7) Baso # (Auto) 0.01 (0.0-2.0) K/mm3 Neutrophils % (Manual) 70 (50.0-70.0) % Band Neutrophils % 3 H (0-2) % Lymphocytes % (Manual) 16 L (22.0-35.0) % Monocytes % (Manual) 11 H (1.0-6.0) % Platelet Evaluation Low (NORMAL) PT (9.4-12.5) SECONDS INR (0.93-1.08) pCO2 (35-45) mm/Hg pO2 (80-100) mm/Hg HCO3 (21-28) mmol/L ABG pH (7.35-7.45) ABG Total CO2 (22-28) mmol.L ABG O2 Saturation (95-98) % ABG O2 Content (15-23) ML/dl ABG Base Excess (-2.0-3.0) mmol/L ABG Hemoglobin (11.7-17.4) g/dL ABG Carboxyhemoglobin (0.5-1.5) % POC ABG HHb (Measured) (0-5) % ABG Methemoglobin (0.0-3.0) % ABG O2 Capacity (16-24) mL/dl Hgb O2 Saturation (95.0-98.0) % FiO2 % Sodium 152 H (132-148) mmol/L Potassium 3.6 (3.6-5.0) mmol/L Chloride 117 H (98-107) mmol/L Carbon Dioxide 24 (21-33) mmol/L Anion Gap 15 (10-20) BUN 19 (7-21) mg/dL Creatinine 0.7 L (0.8-1.5) mg/dl Est GFR ( Amer) > 60 Est GFR (Non-Af Amer) > 60 POC Glucose (mg/dL) 332 H (65-110) mg/dL Random Glucose 368 H* (70-110) mg/dL Calcium 8.9 (8.4-10.5) mg/dL Phosphorus 2.0 L (2.5-4.5) mg/dL Magnesium 2.2 (1.7-2.2) mg/dL Total Bilirubin 7.1 H (0.2-1.3) mg/dL AST 47 (17-59) U/L ALT 33 (7-56) U/L Alkaline Phosphatase 125 (38-126) U/L Total Protein 6.0 (5.8-8.3) g/dL Albumin 2.5 L (3.0-4.8) g/dL Globulin 3.6 gm/dL Albumin/Globulin Ratio 0.7 L (1.1-1.8) 03/17/18 03/17/18 03/16/18 Range/Units 05:35 02:01 23:51 WBC (4.5-11.0) 10^3/ul RBC (3.5-6.1) 10^6/uL Hgb (14.0-18.0) g/dL Hct (42.0-52.0) % MCV (80.0-105.0) fl MCH (25.0-35.0) pg MCHC (31.0-37.0) g/dl RDW (11.5-14.5) % Plt Count (120.0-450.0) 10^3/uL MPV (7.0-11.0) fl Gran % (50.0-68.0) % Lymph % (Auto) (22.0-35.0) % [place] % (Auto) (1.0-6.0) % Eos % (Auto) (1.5-5.0) % Baso % (Auto) (0.0-3.0) % Gran # (1.4-6.5) Lymph # (Auto) (1.2-3.4) [place] # (Auto) (0.1-0.6) Eos # (Auto) (0.0-0.7) Baso # (Auto) (0.0-2.0) K/mm3 Neutrophils % (Manual) (50.0-70.0) % Band Neutrophils % (0-2) % Lymphocytes % (Manual) (22.0-35.0) % Monocytes % (Manual) (1.0-6.0) % Platelet Evaluation (NORMAL) PT (9.4-12.5) SECONDS INR (0.93-1.08) pCO2 32 L (35-45) mm/Hg pO2 114.0 H (80-100) mm/Hg HCO3 21.7 (21-28) mmol/L ABG pH 7.44 (7.35-7.45) ABG Total CO2 22.7 (22-28) mmol.L ABG O2 Saturation 100.4 H (95-98) % ABG O2 Content 14.8 L (15-23) ML/dl ABG Base Excess -1.9 (-2.0-3.0) mmol/L ABG Hemoglobin 10.7 L (11.7-17.4) g/dL ABG Carboxyhemoglobin 2.3 H (0.5-1.5) % POC ABG HHb (Measured) -0.4 L (0-5) % ABG Methemoglobin 1.0 (0.0-3.0) % ABG O2 Capacity 14.7 L (16-24) mL/dl Hgb O2 Saturation 97.1 (95.0-98.0) % FiO2 40.0 % Sodium (132-148) mmol/L Potassium (3.6-5.0) mmol/L Chloride (98-107) mmol/L Carbon Dioxide (21-33) mmol/L Anion Gap (10-20) BUN (7-21) mg/dL Creatinine (0.8-1.5) mg/dl Est GFR ( Amer) Est GFR (Non-Af Amer) POC Glucose (mg/dL) 286 H 287 H (65-110) mg/dL Random Glucose (70-110) mg/dL Calcium (8.4-10.5) mg/dL Phosphorus (2.5-4.5) mg/dL Magnesium (1.7-2.2) mg/dL Total Bilirubin (0.2-1.3) mg/dL AST (17-59) U/L ALT (7-56) U/L Alkaline Phosphatase (38-126) U/L Total Protein (5.8-8.3) g/dL Albumin (3.0-4.8) g/dL Globulin gm/dL Albumin/Globulin Ratio (1.1-1.8) 03/16/18 03/16/18 03/16/18 Range/Units 21:32 16:24 11:45 WBC (4.5-11.0) 10^3/ul RBC (3.5-6.1) 10^6/uL Hgb (14.0-18.0) g/dL Hct (42.0-52.0) % MCV (80.0-105.0) fl MCH (25.0-35.0) pg MCHC (31.0-37.0) g/dl RDW (11.5-14.5) % Plt Count (120.0-450.0) 10^3/uL MPV (7.0-11.0) fl Gran % (50.0-68.0) % Lymph % (Auto) (22.0-35.0) % [place] % (Auto) (1.0-6.0) % Eos % (Auto) (1.5-5.0) % Baso % (Auto) (0.0-3.0) % Gran # (1.4-6.5) Lymph # (Auto) (1.2-3.4) [place] # (Auto) (0.1-0.6) Eos # (Auto) (0.0-0.7) Baso # (Auto) (0.0-2.0) K/mm3 Neutrophils % (Manual) (50.0-70.0) % Band Neutrophils % (0-2) % Lymphocytes % (Manual) (22.0-35.0) % Monocytes % (Manual) (1.0-6.0) % Platelet Evaluation (NORMAL) PT (9.4-12.5) SECONDS INR (0.93-1.08) pCO2 (35-45) mm/Hg pO2 (80-100) mm/Hg HCO3 (21-28) mmol/L ABG pH (7.35-7.45) ABG Total CO2 (22-28) mmol.L ABG O2 Saturation (95-98) % ABG O2 Content (15-23) ML/dl ABG Base Excess (-2.0-3.0) mmol/L ABG Hemoglobin (11.7-17.4) g/dL ABG Carboxyhemoglobin (0.5-1.5) % POC ABG HHb (Measured) (0-5) % ABG Methemoglobin (0.0-3.0) % ABG O2 Capacity (16-24) mL/dl Hgb O2 Saturation (95.0-98.0) % FiO2 % Sodium (132-148) mmol/L Potassium (3.6-5.0) mmol/L Chloride (98-107) mmol/L Carbon Dioxide (21-33) mmol/L Anion Gap (10-20) BUN (7-21) mg/dL Creatinine (0.8-1.5) mg/dl Est GFR ( Amer) Est GFR (Non-Af Amer) POC Glucose (mg/dL) 423 H* 308 H 348 H (65-110) mg/dL Random Glucose (70-110) mg/dL Calcium (8.4-10.5) mg/dL Phosphorus (2.5-4.5) mg/dL Magnesium (1.7-2.2) mg/dL Total Bilirubin (0.2-1.3) mg/dL AST (17-59) U/L ALT (7-56) U/L Alkaline Phosphatase (38-126) U/L Total Protein (5.8-8.3) g/dL Albumin (3.0-4.8) g/dL Globulin gm/dL Albumin/Globulin Ratio (1.1-1.8) 03/16/18 03/16/18 Range/Units 10:45 07:12 WBC (4.5-11.0) 10^3/ul RBC (3.5-6.1) 10^6/uL Hgb (14.0-18.0) g/dL Hct (42.0-52.0) % MCV (80.0-105.0) fl MCH (25.0-35.0) pg MCHC (31.0-37.0) g/dl RDW (11.5-14.5) % Plt Count (120.0-450.0) 10^3/uL MPV (7.0-11.0) fl Gran % (50.0-68.0) % Lymph % (Auto) (22.0-35.0) % [place] % (Auto) (1.0-6.0) % Eos % (Auto) (1.5-5.0) % Baso % (Auto) (0.0-3.0) % Gran # (1.4-6.5) Lymph # (Auto) (1.2-3.4) [place] # (Auto) (0.1-0.6) Eos # (Auto) (0.0-0.7) Baso # (Auto) (0.0-2.0) K/mm3 Neutrophils % (Manual) (50.0-70.0) % Band Neutrophils % (0-2) % Lymphocytes % (Manual) (22.0-35.0) % Monocytes % (Manual) (1.0-6.0) % Platelet Evaluation (NORMAL) PT 19.8 H (9.4-12.5) SECONDS INR 1.70 H (0.93-1.08) pCO2 (35-45) mm/Hg pO2 (80-100) mm/Hg HCO3 (21-28) mmol/L ABG pH (7.35-7.45) ABG Total CO2 (22-28) mmol.L ABG O2 Saturation (95-98) % ABG O2 Content (15-23) ML/dl ABG Base Excess (-2.0-3.0) mmol/L ABG Hemoglobin (11.7-17.4) g/dL ABG Carboxyhemoglobin (0.5-1.5) % POC ABG HHb (Measured) (0-5) % ABG Methemoglobin (0.0-3.0) % ABG O2 Capacity (16-24) mL/dl Hgb O2 Saturation (95.0-98.0) % FiO2 % Sodium (132-148) mmol/L Potassium (3.6-5.0) mmol/L Chloride (98-107) mmol/L Carbon Dioxide (21-33) mmol/L Anion Gap (10-20) BUN (7-21) mg/dL Creatinine (0.8-1.5) mg/dl Est GFR ( Amer) Est GFR (Non-Af Amer) POC Glucose (mg/dL) 326 H (65-110) mg/dL Random Glucose (70-110) mg/dL Calcium (8.4-10.5) mg/dL Phosphorus (2.5-4.5) mg/dL Magnesium (1.7-2.2) mg/dL Total Bilirubin (0.2-1.3) mg/dL AST (17-59) U/L ALT (7-56) U/L Alkaline Phosphatase (38-126) U/L Total Protein (5.8-8.3) g/dL Albumin (3.0-4.8) g/dL Globulin gm/dL Albumin/Globulin Ratio (1.1-1.8) Laboratory Results - last 24 hr 03/16/18 03/16/18 03/16/18 07:12 10:45 11:45 WBC RBC Hgb Hct MCV MCH MCHC RDW Plt Count MPV Gran % Lymph % (Auto) [place] % (Auto) Eos % (Auto) Baso % (Auto) Gran # Lymph # (Auto) [place] # (Auto) Eos # (Auto) Baso # (Auto) Neutrophils % (Manual) Band Neutrophils % Lymphocytes % (Manual) Monocytes % (Manual) Platelet Evaluation PT 19.8 H INR 1.70 H pCO2 pO2 HCO3 ABG pH ABG Total CO2 ABG O2 Saturation ABG O2 Content ABG Base Excess ABG Hemoglobin ABG Carboxyhemoglobin POC ABG HHb (Measured) ABG Methemoglobin ABG O2 Capacity Hgb O2 Saturation FiO2 Sodium Potassium Chloride Carbon Dioxide Anion Gap BUN Creatinine Est GFR ( Amer) Est GFR (Non-Af Amer) POC Glucose (mg/dL) 326 H 348 H Random Glucose Calcium Phosphorus Magnesium Total Bilirubin AST ALT Alkaline Phosphatase Total Protein Albumin Globulin Albumin/Globulin Ratio 03/16/18 03/16/18 03/16/18 16:24 21:32 23:51 WBC RBC Hgb Hct MCV MCH MCHC RDW Plt Count MPV Gran % Lymph % (Auto) [place] % (Auto) Eos % (Auto) Baso % (Auto) Gran # Lymph # (Auto) [place] # (Auto) Eos # (Auto) Baso # (Auto) Neutrophils % (Manual) Band Neutrophils % Lymphocytes % (Manual) Monocytes % (Manual) Platelet Evaluation PT INR pCO2 pO2 HCO3 ABG pH ABG Total CO2 ABG O2 Saturation ABG O2 Content ABG Base Excess ABG Hemoglobin ABG Carboxyhemoglobin POC ABG HHb (Measured) ABG Methemoglobin ABG O2 Capacity Hgb O2 Saturation FiO2 Sodium Potassium Chloride Carbon Dioxide Anion Gap BUN Creatinine Est GFR ( Amer) Est GFR (Non-Af Amer) POC Glucose (mg/dL) 308 H 423 H* 287 H Random Glucose Calcium Phosphorus Magnesium Total Bilirubin AST ALT Alkaline Phosphatase Total Protein Albumin Globulin Albumin/Globulin Ratio 03/17/18 03/17/18 03/17/18 02:01 05:35 06:40 WBC 5.5 RBC 3.88 Hgb 11.3 L Hct 35.3 L MCV 91.0 MCH 29.1 MCHC 32.0 RDW 17.6 H Plt Count 53 L MPV 10.2 Gran % 79.1 H Lymph % (Auto) 4.9 L [place] % (Auto) 15.4 H Eos % (Auto) 0.4 L Baso % (Auto) 0.2 Gran # 4.33 Lymph # (Auto) 0.3 L [place] # (Auto) 0.8 H Eos # (Auto) 0.0 Baso # (Auto) 0.01 Neutrophils % (Manual) 70 Band Neutrophils % 3 H Lymphocytes % (Manual) 16 L Monocytes % (Manual) 11 H Platelet Evaluation Low PT INR pCO2 32 L pO2 114.0 H HCO3 21.7 ABG pH 7.44 ABG Total CO2 22.7 ABG O2 Saturation 100.4 H ABG O2 Content 14.8 L ABG Base Excess -1.9 ABG Hemoglobin 10.7 L ABG Carboxyhemoglobin 2.3 H POC ABG HHb (Measured) -0.4 L ABG Methemoglobin 1.0 ABG O2 Capacity 14.7 L Hgb O2 Saturation 97.1 FiO2 40.0 Sodium Potassium Chloride Carbon Dioxide Anion Gap BUN Creatinine Est GFR ( Amer) Est GFR (Non-Af Amer) POC Glucose (mg/dL) 286 H Random Glucose Calcium Phosphorus Magnesium Total Bilirubin AST ALT Alkaline Phosphatase Total Protein Albumin Globulin Albumin/Globulin Ratio 03/17/18 03/17/18 06:40 07:23 WBC RBC Hgb Hct MCV MCH MCHC RDW Plt Count MPV Gran % Lymph % (Auto) [place] % (Auto) Eos % (Auto) Baso % (Auto) Gran # Lymph # (Auto) [place] # (Auto) Eos # (Auto) Baso # (Auto) Neutrophils % (Manual) Band Neutrophils % Lymphocytes % (Manual) Monocytes % (Manual) Platelet Evaluation PT INR pCO2 pO2 HCO3 ABG pH ABG Total CO2 ABG O2 Saturation ABG O2 Content ABG Base Excess ABG Hemoglobin ABG Carboxyhemoglobin POC ABG HHb (Measured) ABG Methemoglobin ABG O2 Capacity Hgb O2 Saturation FiO2 Sodium 152 H Potassium 3.6 Chloride 117 H Carbon Dioxide 24 Anion Gap 15 BUN 19 Creatinine 0.7 L Est GFR ( Amer) > 60 Est GFR (Non-Af Amer) > 60 POC Glucose (mg/dL) 332 H Random Glucose 368 H* Calcium 8.9 Phosphorus 2.0 L Magnesium 2.2 Total Bilirubin 7.1 H AST 47 ALT 33 Alkaline Phosphatase 125 Total Protein 6.0 Albumin 2.5 L Globulin 3.6 Albumin/Globulin Ratio 0.7 L Fingerstick Blood Sugar Results: 332 Critical Care Progress Note - Nutrition Nutrition: Nutrition Category Date Time Status NPO Diet [DIET] Diets 03/15/18 Breakfast Ordered Assessment/Plan - Assessment and Plan (Free Text) Assessment: 62 year old male with a PMH of end stage liver disease, Hep C, Cirrhosis, DM, non compliance, admitted with large L IPH/CVA. 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 Cardiovascular Maintain MAP>65 HD stable Pulmnologic Intubated for airway protection, on PRVC settings 450/16/5/40% Off propofol Maintain sat > 92% Gastrointestinal NPO Continue sucralfate Renal Continues making appropriate urine Infectious disease Having fevers, likely central Start cooling blanket and PRN ofirmex Monitoring Endocrinologic TSH elevated, increased home levo from 50 to 75 Hx of DM, cont ISS and accuchecks Will start insulin gtt GI/DVT ppx: Protonix, 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) Dispo: poor prognosis Patient was seen and examined and case was discussed at length with attending physician - Date & Time Date: 03/17/18 Time: 07:10 <Fernando Otero - Last Filed: 03/17/18 12:50> CCU Objective - Vital Signs / Intake & Output Vital Signs (Last 4 hours): Vital Signs Temp Pulse Resp BP Pulse Ox 03/17/18 12:00 101.7 F H 125 H 20 155/71 H 97 03/17/18 10:20 121 H 95 03/17/18 10:10 123 H 95 03/17/18 10:00 123 H 159/76 H 94 L 03/17/18 09:50 118 H 95 03/17/18 09:40 123 H 95 03/17/18 09:30 122 H 95 03/17/18 09:20 120 H 95 03/17/18 09:10 120 H 95 03/17/18 09:03 155/72 H 03/17/18 09:00 121 H 155/72 H 98 03/17/18 08:50 123 H 98 Intake and Output (Last 8hrs): Intake & Output 03/16/18 03/17/18 03/17/18 22:59 06:59 14:59 Intake Total 354 100 Output Total 550 Balance -196 100 Intake: IV 174 100 keppra 100 mannitol 50 propofol 24 Tube Feeding 180 Output: Urine 550 Urethral (Serna) 550 Other: # Bowel Movements 0 - Medications Active Medications: Active Medications Generic Name Dose Route Start Last Admin Trade Name Freq PRN Reason Stop Dose Admin Propofol 1,000 mg in 100 mls @ 1.932 mls/hr 03/15/18 08:00 03/16/18 09:30 Diprivan IV 0 mcg/kg/min .Q24H PRN 0 mls/hr TITRATE PER MD ORDER Titration Protocol 5 MCG/KG/MIN Sodium Chloride 500 mls @ 30 mls/hr 03/15/18 09:45 03/15/18 10:50 Hypertonic Saline 3% IV 30 mls/hr .[id number] KAVIN Administration Levetiracetam 500 mg in 100 mls @ 400 mls/hr 03/15/18 12:00 03/17/18 09:03 Keppra 500mg Ivpb IV 400 mls/hr Q12 KAVIN Administration Insulin Human Regular 100 100 mls @ 2 mls/hr 03/17/18 07:59 03/17/18 10:12 units/ Sodium Chloride IV 6 units/hr .Q24H PRN 6 mls/hr TITRATE PER MD ORDER Administration Protocol 2 UNITS/HR Acetaminophen 1,000 mg in 100 mls @ 400 mls/hr 03/17/18 09:47 03/17/18 09:59 Ofirmev IVPB 03/19/18 09:48 400 mls/hr Q6H PRN Administration Temperature Insulin Human Lispro 0 units 03/13/18 11:30 03/17/18 08:59 Humalog High SC Not Given ACHS [facility] Protocol Insulin Lispro Protam/Lispro Human 15 units 03/14/18 16:30 03/17/18 08:59 Humalog Mix 75/25 SC Not Given BIDAC KAVIN Labetalol HCl 10 mg 03/15/18 03:08 Trandate IV Q4 PRN Blood Pressure 220/110 & above Lactulose 30 gm 03/13/18 10:00 03/17/18 09:02 Enulose PO 30 gm TID KAVIN Administration Levothyroxine Sodium 75 mcg 03/17/18 09:51 Synthroid PO 0600 KAVIN Mannitol 17 gm 03/15/18 14:45 03/17/18 05:44 Mannitol IV 17 gm Q8H KAVIN Administration Ondansetron HCl 4 mg 03/14/18 23:32 03/15/18 00:14 Zofran Inj IVP 4 mg Q6H PRN Administration Nausea/Vomiting Pantoprazole Sodium 40 mg 03/14/18 06:00 03/17/18 05:02 Protonix Ec Tab PO 40 mg 0600 KAVIN Administration Rifaximin 550 mg 03/12/18 12:00 03/17/18 09:02 Xifaxan PO 550 mg BID KAVIN Administration Protocol Spironolactone 100 mg 03/12/18 10:00 03/17/18 09:02 Aldactone PO 100 mg DAILY KAVIN Administration Sucralfate 1 gm 03/14/18 16:00 03/17/18 05:02 Carafate Tab PO 1 gm 0600,1600 KAVIN Administration - Patient Studies Lab Studies: Microbiology Studies 03/15/18 09:25 MRSA Culture (Admit) - Final Naris MRSA NOT DETECTED Lab Studies 03/17/18 03/17/18 03/17/18 Range/Units 12:05 11:04 10:06 WBC (4.5-11.0) 10^3/ul RBC (3.5-6.1) 10^6/uL Hgb (14.0-18.0) g/dL Hct (42.0-52.0) % MCV (80.0-105.0) fl MCH (25.0-35.0) pg MCHC (31.0-37.0) g/dl RDW (11.5-14.5) % Plt Count (120.0-450.0) 10^3/uL MPV (7.0-11.0) fl Gran % (50.0-68.0) % Lymph % (Auto) (22.0-35.0) % [place] % (Auto) (1.0-6.0) % Eos % (Auto) (1.5-5.0) % Baso % (Auto) (0.0-3.0) % Gran # (1.4-6.5) Lymph # (Auto) (1.2-3.4) [place] # (Auto) (0.1-0.6) Eos # (Auto) (0.0-0.7) Baso # (Auto) (0.0-2.0) K/mm3 Neutrophils % (Manual) (50.0-70.0) % Band Neutrophils % (0-2) % Lymphocytes % (Manual) (22.0-35.0) % Monocytes % (Manual) (1.0-6.0) % Platelet Evaluation (NORMAL) pCO2 (35-45) mm/Hg pO2 (80-100) mm/Hg HCO3 (21-28) mmol/L ABG pH (7.35-7.45) ABG Total CO2 (22-28) mmol.L ABG O2 Saturation (95-98) % ABG O2 Content (15-23) ML/dl ABG Base Excess (-2.0-3.0) mmol/L ABG Hemoglobin (11.7-17.4) g/dL ABG Carboxyhemoglobin (0.5-1.5) % POC ABG HHb (Measured) (0-5) % ABG Methemoglobin (0.0-3.0) % ABG O2 Capacity (16-24) mL/dl Hgb O2 Saturation (95.0-98.0) % FiO2 % Sodium (132-148) mmol/L Potassium (3.6-5.0) mmol/L Chloride (98-107) mmol/L Carbon Dioxide (21-33) mmol/L Anion Gap (10-20) BUN (7-21) mg/dL Creatinine (0.8-1.5) mg/dl Est GFR ( Amer) Est GFR (Non-Af Amer) POC Glucose (mg/dL) 292 H 369 H 395 H (65-110) mg/dL Random Glucose (70-110) mg/dL Calcium (8.4-10.5) mg/dL Phosphorus (2.5-4.5) mg/dL Magnesium (1.7-2.2) mg/dL Total Bilirubin (0.2-1.3) mg/dL AST (17-59) U/L ALT (7-56) U/L Alkaline Phosphatase (38-126) U/L Total Protein (5.8-8.3) g/dL Albumin (3.0-4.8) g/dL Globulin gm/dL Albumin/Globulin Ratio (1.1-1.8) 03/17/18 03/17/18 03/17/18 Range/Units 07:23 06:40 06:40 WBC 5.5 (4.5-11.0) 10^3/ul RBC 3.88 (3.5-6.1) 10^6/uL Hgb 11.3 L (14.0-18.0) g/dL Hct 35.3 L (42.0-52.0) % MCV 91.0 (80.0-105.0) fl MCH 29.1 (25.0-35.0) pg MCHC 32.0 (31.0-37.0) g/dl RDW 17.6 H (11.5-14.5) % Plt Count 53 L (120.0-450.0) 10^3/uL MPV 10.2 (7.0-11.0) fl Gran % 79.1 H (50.0-68.0) % Lymph % (Auto) 4.9 L (22.0-35.0) % [place] % (Auto) 15.4 H (1.0-6.0) % Eos % (Auto) 0.4 L (1.5-5.0) % Baso % (Auto) 0.2 (0.0-3.0) % Gran # 4.33 (1.4-6.5) Lymph # (Auto) 0.3 L (1.2-3.4) [place] # (Auto) 0.8 H (0.1-0.6) Eos # (Auto) 0.0 (0.0-0.7) Baso # (Auto) 0.01 (0.0-2.0) K/mm3 Neutrophils % (Manual) 70 (50.0-70.0) % Band Neutrophils % 3 H (0-2) % Lymphocytes % (Manual) 16 L (22.0-35.0) % Monocytes % (Manual) 11 H (1.0-6.0) % Platelet Evaluation Low (NORMAL) pCO2 (35-45) mm/Hg pO2 (80-100) mm/Hg HCO3 (21-28) mmol/L ABG pH (7.35-7.45) ABG Total CO2 (22-28) mmol.L ABG O2 Saturation (95-98) % ABG O2 Content (15-23) ML/dl ABG Base Excess (-2.0-3.0) mmol/L ABG Hemoglobin (11.7-17.4) g/dL ABG Carboxyhemoglobin (0.5-1.5) % POC ABG HHb (Measured) (0-5) % ABG Methemoglobin (0.0-3.0) % ABG O2 Capacity (16-24) mL/dl Hgb O2 Saturation (95.0-98.0) % FiO2 % Sodium 152 H (132-148) mmol/L Potassium 3.6 (3.6-5.0) mmol/L Chloride 117 H (98-107) mmol/L Carbon Dioxide 24 (21-33) mmol/L Anion Gap 15 (10-20) BUN 19 (7-21) mg/dL Creatinine 0.7 L (0.8-1.5) mg/dl Est GFR ( Amer) > 60 Est GFR (Non-Af Amer) > 60 POC Glucose (mg/dL) 332 H (65-110) mg/dL Random Glucose 368 H* (70-110) mg/dL Calcium 8.9 (8.4-10.5) mg/dL Phosphorus 2.0 L (2.5-4.5) mg/dL Magnesium 2.2 (1.7-2.2) mg/dL Total Bilirubin 7.1 H (0.2-1.3) mg/dL AST 47 (17-59) U/L ALT 33 (7-56) U/L Alkaline Phosphatase 125 (38-126) U/L Total Protein 6.0 (5.8-8.3) g/dL Albumin 2.5 L (3.0-4.8) g/dL Globulin 3.6 gm/dL Albumin/Globulin Ratio 0.7 L (1.1-1.8) 03/17/18 03/17/18 03/16/18 Range/Units 05:35 02:01 23:51 WBC (4.5-11.0) 10^3/ul RBC (3.5-6.1) 10^6/uL Hgb (14.0-18.0) g/dL Hct (42.0-52.0) % MCV (80.0-105.0) fl MCH (25.0-35.0) pg MCHC (31.0-37.0) g/dl RDW (11.5-14.5) % Plt Count (120.0-450.0) 10^3/uL MPV (7.0-11.0) fl Gran % (50.0-68.0) % Lymph % (Auto) (22.0-35.0) % [place] % (Auto) (1.0-6.0) % Eos % (Auto) (1.5-5.0) % Baso % (Auto) (0.0-3.0) % Gran # (1.4-6.5) Lymph # (Auto) (1.2-3.4) [place] # (Auto) (0.1-0.6) Eos # (Auto) (0.0-0.7) Baso # (Auto) (0.0-2.0) K/mm3 Neutrophils % (Manual) (50.0-70.0) % Band Neutrophils % (0-2) % Lymphocytes % (Manual) (22.0-35.0) % Monocytes % (Manual) (1.0-6.0) % Platelet Evaluation (NORMAL) pCO2 32 L (35-45) mm/Hg pO2 114.0 H (80-100) mm/Hg HCO3 21.7 (21-28) mmol/L ABG pH 7.44 (7.35-7.45) ABG Total CO2 22.7 (22-28) mmol.L ABG O2 Saturation 100.4 H (95-98) % ABG O2 Content 14.8 L (15-23) ML/dl ABG Base Excess -1.9 (-2.0-3.0) mmol/L ABG Hemoglobin 10.7 L (11.7-17.4) g/dL ABG Carboxyhemoglobin 2.3 H (0.5-1.5) % POC ABG HHb (Measured) -0.4 L (0-5) % ABG Methemoglobin 1.0 (0.0-3.0) % ABG O2 Capacity 14.7 L (16-24) mL/dl Hgb O2 Saturation 97.1 (95.0-98.0) % FiO2 40.0 % Sodium (132-148) mmol/L Potassium (3.6-5.0) mmol/L Chloride (98-107) mmol/L Carbon Dioxide (21-33) mmol/L Anion Gap (10-20) BUN (7-21) mg/dL Creatinine (0.8-1.5) mg/dl Est GFR ( Amer) Est GFR (Non-Af Amer) POC Glucose (mg/dL) 286 H 287 H (65-110) mg/dL Random Glucose (70-110) mg/dL Calcium (8.4-10.5) mg/dL Phosphorus (2.5-4.5) mg/dL Magnesium (1.7-2.2) mg/dL Total Bilirubin (0.2-1.3) mg/dL AST (17-59) U/L ALT (7-56) U/L Alkaline Phosphatase (38-126) U/L Total Protein (5.8-8.3) g/dL Albumin (3.0-4.8) g/dL Globulin gm/dL Albumin/Globulin Ratio (1.1-1.8) 03/16/18 03/16/18 Range/Units 21:32 16:24 WBC (4.5-11.0) 10^3/ul RBC (3.5-6.1) 10^6/uL Hgb (14.0-18.0) g/dL Hct (42.0-52.0) % MCV (80.0-105.0) fl MCH (25.0-35.0) pg MCHC (31.0-37.0) g/dl RDW (11.5-14.5) % Plt Count (120.0-450.0) 10^3/uL MPV (7.0-11.0) fl Gran % (50.0-68.0) % Lymph % (Auto) (22.0-35.0) % [place] % (Auto) (1.0-6.0) % Eos % (Auto) (1.5-5.0) % Baso % (Auto) (0.0-3.0) % Gran # (1.4-6.5) Lymph # (Auto) (1.2-3.4) [place] # (Auto) (0.1-0.6) Eos # (Auto) (0.0-0.7) Baso # (Auto) (0.0-2.0) K/mm3 Neutrophils % (Manual) (50.0-70.0) % Band Neutrophils % (0-2) % Lymphocytes % (Manual) (22.0-35.0) % Monocytes % (Manual) (1.0-6.0) % Platelet Evaluation (NORMAL) pCO2 (35-45) mm/Hg pO2 (80-100) mm/Hg HCO3 (21-28) mmol/L ABG pH (7.35-7.45) ABG Total CO2 (22-28) mmol.L ABG O2 Saturation (95-98) % ABG O2 Content (15-23) ML/dl ABG Base Excess (-2.0-3.0) mmol/L ABG Hemoglobin (11.7-17.4) g/dL ABG Carboxyhemoglobin (0.5-1.5) % POC ABG HHb (Measured) (0-5) % ABG Methemoglobin (0.0-3.0) % ABG O2 Capacity (16-24) mL/dl Hgb O2 Saturation (95.0-98.0) % FiO2 % Sodium (132-148) mmol/L Potassium (3.6-5.0) mmol/L Chloride (98-107) mmol/L Carbon Dioxide (21-33) mmol/L Anion Gap (10-20) BUN (7-21) mg/dL Creatinine (0.8-1.5) mg/dl Est GFR ( Amer) Est GFR (Non-Af Amer) POC Glucose (mg/dL) 423 H* 308 H (65-110) mg/dL Random Glucose (70-110) mg/dL Calcium (8.4-10.5) mg/dL Phosphorus (2.5-4.5) mg/dL Magnesium (1.7-2.2) mg/dL Total Bilirubin (0.2-1.3) mg/dL AST (17-59) U/L ALT (7-56) U/L Alkaline Phosphatase (38-126) U/L Total Protein (5.8-8.3) g/dL Albumin (3.0-4.8) g/dL Globulin gm/dL Albumin/Globulin Ratio (1.1-1.8) Laboratory Results - last 24 hr 03/16/18 03/16/18 03/16/18 16:24 21:32 23:51 WBC RBC Hgb Hct MCV MCH MCHC RDW Plt Count MPV Gran % Lymph % (Auto) [place] % (Auto) Eos % (Auto) Baso % (Auto) Gran # Lymph # (Auto) [place] # (Auto) Eos # (Auto) Baso # (Auto) Neutrophils % (Manual) Band Neutrophils % Lymphocytes % (Manual) Monocytes % (Manual) Platelet Evaluation pCO2 pO2 HCO3 ABG pH ABG Total CO2 ABG O2 Saturation ABG O2 Content ABG Base Excess ABG Hemoglobin ABG Carboxyhemoglobin POC ABG HHb (Measured) ABG Methemoglobin ABG O2 Capacity Hgb O2 Saturation FiO2 Sodium Potassium Chloride Carbon Dioxide Anion Gap BUN Creatinine Est GFR ( Amer) Est GFR (Non-Af Amer) POC Glucose (mg/dL) 308 H 423 H* 287 H Random Glucose Calcium Phosphorus Magnesium Total Bilirubin AST ALT Alkaline Phosphatase Total Protein Albumin Globulin Albumin/Globulin Ratio 03/17/18 03/17/18 03/17/18 02:01 05:35 06:40 WBC 5.5 RBC 3.88 Hgb 11.3 L Hct 35.3 L MCV 91.0 MCH 29.1 MCHC 32.0 RDW 17.6 H Plt Count 53 L MPV 10.2 Gran % 79.1 H Lymph % (Auto) 4.9 L [place] % (Auto) 15.4 H Eos % (Auto) 0.4 L Baso % (Auto) 0.2 Gran # 4.33 Lymph # (Auto) 0.3 L [place] # (Auto) 0.8 H Eos # (Auto) 0.0 Baso # (Auto) 0.01 Neutrophils % (Manual) 70 Band Neutrophils % 3 H Lymphocytes % (Manual) 16 L Monocytes % (Manual) 11 H Platelet Evaluation Low pCO2 32 L pO2 114.0 H HCO3 21.7 ABG pH 7.44 ABG Total CO2 22.7 ABG O2 Saturation 100.4 H ABG O2 Content 14.8 L ABG Base Excess -1.9 ABG Hemoglobin 10.7 L ABG Carboxyhemoglobin 2.3 H POC ABG HHb (Measured) -0.4 L ABG Methemoglobin 1.0 ABG O2 Capacity 14.7 L Hgb O2 Saturation 97.1 FiO2 40.0 Sodium Potassium Chloride Carbon Dioxide Anion Gap BUN Creatinine Est GFR ( Amer) Est GFR (Non-Af Amer) POC Glucose (mg/dL) 286 H Random Glucose Calcium Phosphorus Magnesium Total Bilirubin AST ALT Alkaline Phosphatase Total Protein Albumin Globulin Albumin/Globulin Ratio 03/17/18 03/17/18 03/17/18 06:40 07:23 10:06 WBC RBC Hgb Hct MCV MCH MCHC RDW Plt Count MPV Gran % Lymph % (Auto) [place] % (Auto) Eos % (Auto) Baso % (Auto) Gran # Lymph # (Auto) [place] # (Auto) Eos # (Auto) Baso # (Auto) Neutrophils % (Manual) Band Neutrophils % Lymphocytes % (Manual) Monocytes % (Manual) Platelet Evaluation pCO2 pO2 HCO3 ABG pH ABG Total CO2 ABG O2 Saturation ABG O2 Content ABG Base Excess ABG Hemoglobin ABG Carboxyhemoglobin POC ABG HHb (Measured) ABG Methemoglobin ABG O2 Capacity Hgb O2 Saturation FiO2 Sodium 152 H Potassium 3.6 Chloride 117 H Carbon Dioxide 24 Anion Gap 15 BUN 19 Creatinine 0.7 L Est GFR ( Amer) > 60 Est GFR (Non-Af Amer) > 60 POC Glucose (mg/dL) 332 H 395 H Random Glucose 368 H* Calcium 8.9 Phosphorus 2.0 L Magnesium 2.2 Total Bilirubin 7.1 H AST 47 ALT 33 Alkaline Phosphatase 125 Total Protein 6.0 Albumin 2.5 L Globulin 3.6 Albumin/Globulin Ratio 0.7 L 03/17/18 03/17/18 11:04 12:05 WBC RBC Hgb Hct MCV MCH MCHC RDW Plt Count MPV Gran % Lymph % (Auto) [place] % (Auto) Eos % (Auto) Baso % (Auto) Gran # Lymph # (Auto) [place] # (Auto) Eos # (Auto) Baso # (Auto) Neutrophils % (Manual) Band Neutrophils % Lymphocytes % (Manual) Monocytes % (Manual) Platelet Evaluation pCO2 pO2 HCO3 ABG pH ABG Total CO2 ABG O2 Saturation ABG O2 Content ABG Base Excess ABG Hemoglobin ABG Carboxyhemoglobin POC ABG HHb (Measured) ABG Methemoglobin ABG O2 Capacity Hgb O2 Saturation FiO2 Sodium Potassium Chloride Carbon Dioxide Anion Gap BUN Creatinine Est GFR ( Amer) Est GFR (Non-Af Amer) POC Glucose (mg/dL) 369 H 292 H Random Glucose Calcium Phosphorus Magnesium Total Bilirubin AST ALT Alkaline Phosphatase Total Protein Albumin Globulin Albumin/Globulin Ratio Critical Care Progress Note - Nutrition Nutrition: Nutrition Category Date Time Status NPO Diet [DIET] Diets 03/15/18 Breakfast Ordered Assessment/Plan - Assessment and Plan (Free Text) Plan: Patient seen and examined on rounds with resident, agree with note with following additions/exceptions: Patient is 62yo male with PMhx of end stage liver disease, Hep C, Cirrhosis, DM , non compliance,admitted with large L IPH/CVA, with midline shirt, neurosurgery consulted, no acute surgical intervention. Pt unable to protect airway, intubated for airway protection. Pt currently febrile on cooling blanket, HD stable. Neurology followiing Overall prognosis is extremely poor. I had an extensive conversation today with family, , and sister,family friend Padmini, along with Dr Darling, regarding the clinical status, and overall extremely poor prognosis. Family said they would consider their options , whether to continue aggressive care, or withdraw care. ICH with midline shift Hep C Cirrhosis DM Recommend: - cont with vent support, low tidal vol ventilation, oxygenation acceptable - panculture, UCx, BCx, procal - BP control, goal SBP <140 - follow up neurology, neurosurgery - goal Na 145-150 - Mannitol - Keppra IV - lactulose - monitor INR, HH - GI ppx - DVT ppx, SCDs - obtain palliative care consult - Overall prognosis is extremely poor, family considering palliative options critical care time 35 minutes
--- NOTE | 2018-03-17 11:21 | CP.PCM.PN ---
Subjective - Date & Time of Evaluation Date of Evaluation: 03/17/18 Time of Evaluation: 11:19 - Subjective Subjective: spoke w additional family again explained dire nature of situation cont to consider their options Objective - Vital Signs/Intake and Output Vital Signs (last 24 hours): Temp Pulse Resp BP Pulse Ox 100.8 F H 121 H 20 159/76 H 95 03/17/18 08:00 03/17/18 10:20 03/17/18 08:00 03/17/18 10:00 03/17/18 10:20 Intake and Output: 03/17/18 03/17/18 06:59 18:59 Intake Total 100 Balance 100 - Medications Medications: Current Medications Propofol (Diprivan) 1,000 mg in 100 mls @ 1.932 mls/hr IV .Q24H PRN; Protocol; 5 MCG/KG/MIN PRN Reason: TITRATE PER MD ORDER Last Titration: 03/16/18 09:30 Dose: 0 mcg/kg/min, 0 mls/hr Sodium Chloride (Hypertonic Saline 3%) 500 mls @ 30 mls/hr IV .[id number] [facility] Last Admin: 03/15/18 10:50 Dose: 30 mls/hr Levetiracetam (Keppra 500mg Ivpb) 500 mg in 100 mls @ 400 mls/hr IV Q12 [facility] Last Admin: 03/17/18 09:03 Dose: 400 mls/hr Insulin Human Regular 100 (units/ Sodium Chloride) 100 mls @ 2 mls/hr IV .Q24H PRN; Protocol; 2 UNITS/HR PRN Reason: TITRATE PER MD ORDER Last Admin: 03/17/18 10:12 Dose: 6 units/hr, 6 mls/hr Acetaminophen (Ofirmev) 1,000 mg in 100 mls @ 400 mls/hr IVPB Q6H PRN PRN Reason: Temperature Stop: 03/19/18 09:48 Last Admin: 03/17/18 09:59 Dose: 400 mls/hr Insulin Human Lispro (Humalog High) 0 units SC ACHS [facility] PRN Reason: Protocol Last Admin: 03/17/18 08:59 Dose: Not Given Insulin Lispro Protam/Lispro Human (Humalog Mix 75/25) 15 units SC BIDAC [facility] Last Admin: 03/17/18 08:59 Dose: Not Given Labetalol HCl (Trandate) 10 mg IV Q4 PRN PRN Reason: Blood Pressure 220/110 & above Lactulose (Enulose) 30 gm PO TID [facility] Last Admin: 03/17/18 09:02 Dose: 30 gm Levothyroxine Sodium (Synthroid) 75 mcg PO 0600 [facility] Mannitol (Mannitol) 17 gm IV Q8H [facility] Last Admin: 03/17/18 05:44 Dose: 17 gm Ondansetron HCl (Zofran Inj) 4 mg IVP Q6H PRN PRN Reason: Nausea/Vomiting Last Admin: 03/15/18 00:14 Dose: 4 mg Pantoprazole Sodium (Protonix Ec Tab) 40 mg PO 0600 [facility] Last Admin: 03/17/18 05:02 Dose: 40 mg Rifaximin (Xifaxan) 550 mg PO BID [facility] PRN Reason: Protocol Last Admin: 03/17/18 09:02 Dose: 550 mg Spironolactone (Aldactone) 100 mg PO DAILY [facility] Last Admin: 03/17/18 09:02 Dose: 100 mg Sucralfate (Carafate Tab) 1 gm PO 0600,1600 [facility] Last Admin: 03/17/18 05:02 Dose: 1 gm - Labs Labs: 03/17/18 06:40 03/17/18 06:40 PT 19.8 SECONDS (9.4-12.5) H 03/16/18 10:45 INR 1.70 (0.93-1.08) H 03/16/18 10:45 APTT 38.3 Seconds (25.1-36.5) H 03/11/18 18:45
[2018-03-18 05:28] LABS: ARTERIAL BLOOD GAS HCO3 23.9 mmol/L (21-28); ARTERIAL BLOOD GAS HEMOGLOBIN 11.3 g/dL (11.7-17.4); ARTERIAL BLOOD GAS O2 CAPACITY 15.7 mL/dl (16-24); ARTERIAL BLOOD GAS O2 CONTENT 15.8 ML/dl (15-23); ARTERIAL BLOOD GAS O2 SAT 100.7 % (95-98); ARTERIAL BLOOD GAS PCO2 30 mm/Hg (35-45); ARTERIAL BLOOD GAS PH 7.51 (7.35-7.45); ARTERIAL BLOOD GAS TCO2 24.8 mmol.L (22-28)
[2018-03-18] MEDS: Levothyroxine 75 MCG TAB PO SCH (06:25)
[2018-03-18 06:48] LABS: BASO # 0.01 K/mm3 (0.0-2.0); BASO % 0.2 % (0.0-3.0); EOS % 0.6 % (1.5-5.0); GRAN # 3.5 (1.4-6.5); GRAN % 74.2 % (50.0-68.0); HEMOGLOBIN 12.1 g/dL (14.0-18.0); LYMPH # 0.5 (1.2-3.4); MEAN CORPUSCULAR HEMOGLOBIN 28.9 pg (25.0-35.0); MEAN CORPUSCULAR HGB CONC 32.2 g/dl (31.0-37.0); MEAN PLATELET VOLUME 9.8 fl (7.0-11.0); MONO # 0.7 (0.1-0.6); RBC 4.18 10^6/uL (3.5-6.1); WHITE BLOOD COUNT 4.7 10^3/ul (4.5-11.0)
--- NOTE | 2018-03-18 07:12 | CP.PCM.PN ---
<Jacinto Lea - Last Filed: 03/18/18 11:03> Subjective - Date & Time of Evaluation Date of Evaluation: 03/18/18 Time of Evaluation: 07:20 - Subjective Subjective: Medicine Note for Dr. Flores Patient seen and examined at bedside. No acute event overnight. Patient is clinical condition is unchanged. Patient is intubated and on pressure support this morning. Tachycardia has resolved. Palliative care to spoke with family for possible withdrawal of care due to poor prognosis and family advertising representative Padmini stated that the family is undecided of plan but orthodoxy beliefs prohibit them from withdrawing life preserving measures. Padmini also told Palliative that the family will have further discussions then speak with her again. Objective - Vital Signs/Intake and Output Vital Signs (last 24 hours): Temp Pulse Resp BP Pulse Ox 98.7 F 89 20 135/72 100 03/18/18 04:00 03/17/18 18:00 03/17/18 16:00 03/17/18 18:00 03/17/18 18:00 Intake and Output: 03/18/18 03/18/18 06:59 18:59 Intake Total 591 Output Total 500 Balance 91 - Medications Medications: Current Medications Propofol (Diprivan) 1,000 mg in 100 mls @ 1.932 mls/hr IV .Q24H PRN; Protocol; 5 MCG/KG/MIN PRN Reason: TITRATE PER MD ORDER Last Titration: 03/16/18 09:30 Dose: 0 mcg/kg/min, 0 mls/hr Sodium Chloride (Hypertonic Saline 3%) 500 mls @ 30 mls/hr IV .[id number] [facility] Last Admin: 03/15/18 10:50 Dose: 30 mls/hr Levetiracetam (Keppra 500mg Ivpb) 500 mg in 100 mls @ 400 mls/hr IV Q12 [facility] Last Admin: 03/17/18 21:14 Dose: 400 mls/hr Insulin Human Regular 100 (units/ Sodium Chloride) 100 mls @ 2 mls/hr IV .Q24H PRN; Protocol; 2 UNITS/HR PRN Reason: TITRATE PER MD ORDER Last Titration: 03/18/18 05:12 Dose: 2 units/hr, 2 mls/hr Acetaminophen (Ofirmev) 1,000 mg in 100 mls @ 400 mls/hr IVPB Q6H PRN PRN Reason: Temperature Stop: 03/19/18 09:48 Last Admin: 03/17/18 09:59 Dose: 400 mls/hr Insulin Human Lispro (Humalog High) 0 units SC ACHS [facility] PRN Reason: Protocol Last Admin: 03/17/18 08:59 Dose: Not Given Insulin Lispro Protam/Lispro Human (Humalog Mix 75/25) 15 units SC BIDAC [facility] Last Admin: 03/17/18 08:59 Dose: Not Given Labetalol HCl (Trandate) 10 mg IV Q4 PRN PRN Reason: Blood Pressure 220/110 & above Lactulose (Enulose) 30 gm PO TID [facility] Last Admin: 03/17/18 17:48 Dose: 30 gm Levothyroxine Sodium (Synthroid) 75 mcg PO 0600 [facility] Last Admin: 03/18/18 06:25 Dose: 75 mcg Mannitol (Mannitol) 17 gm IV Q8H [facility] Last Admin: 03/17/18 22:32 Dose: 17 gm Ondansetron HCl (Zofran Inj) 4 mg IVP Q6H PRN PRN Reason: Nausea/Vomiting Last Admin: 03/15/18 00:14 Dose: 4 mg Pantoprazole Sodium (Protonix Inj) 40 mg IVP DAILY [facility] Rifaximin (Xifaxan) 550 mg PO BID [facility] PRN Reason: Protocol Last Admin: 03/17/18 17:48 Dose: 550 mg Spironolactone (Aldactone) 100 mg PO DAILY [facility] Last Admin: 03/17/18 09:02 Dose: 100 mg Sucralfate (Carafate Tab) 1 gm PO 0600,1600 [facility] Last Admin: 03/18/18 06:25 Dose: 1 gm - Labs Labs: 03/18/18 05:25 03/17/18 06:40 PT 19.8 SECONDS (9.4-12.5) H 03/16/18 10:45 INR 1.70 (0.93-1.08) H 03/16/18 10:45 APTT 38.3 Seconds (25.1-36.5) H 03/11/18 18:45 - Constitutional Appears: Chronically Ill, Other (intubated) - Head Exam Head Exam: ATRAUMATIC, NORMOCEPHALIC - Eye Exam Additional comments: pupils 2 mm and nonreactive - ENT Exam ENT Exam: Mucous Membranes Moist - Respiratory Exam Additional comments: intubated and on pressure support - Cardiovascular Exam Cardiovascular Exam: REGULAR RHYTHM - GI/Abdominal Exam GI & Abdominal Exam: Distended, Soft, Normal Bowel Sounds - Neurological Exam Neurological Exam: Altered Additional comments: GCS 3T, no corneal reflex, gag reflex still present - Psychiatric Exam Psychiatric exam: Flat Affect - Skin Skin Exam: Dry, Intact, Warm Assessment and Plan - Assessment and Plan (Free Text) Assessment: 62 M with PMH of end stage liver disease, Hep C, Cirrhosis, DM, non-compliance, intubated in the ICU with SAH/CVA. Neuro (03/15) Head CT showed massive hemorrhage in left partietal lobe extending to cortical surface with 11mm of midline shift (03/16) head CT showed new subarachnoid hemorrhage over the right hemisphere Neurosurgery consult, no surgical intervention, poor prognosis Neurology consult, help appreciated Hold 3% saline Mannitol and keppra BMP Q4H, Na 155 uptrending lactulose and rifaximin ammonia level is elevated at 50 today Palliative care consult HOB 30 degrees Cardio Maintain MAP>65 Tachycardic Pulm Intubated and on pressure support this morning Maintain sat > 90% GI NPO Continue sucralfate Renal NA 155, uptrending Strict I's & O's Monitor Urine output ID febrile cooling blanket ofirmev Monitor Endo Synthroid 75 Insulin drip Maintain euglycemia 140-180 GI/DVT ppx: Protonix, no chemical anticoagulation Dispo: Family is in discussion with Palliative care about the plan going forward. Discussed with Dr. Sandra Lea PGY1 <Chetna Flores B - Last Filed: 03/18/18 15:21> Objective - Vital Signs/Intake and Output Vital Signs (last 24 hours): Temp Pulse Resp BP Pulse Ox 98.9 F 95 H 22 146/71 100 03/18/18 12:00 03/18/18 13:29 03/18/18 13:26 03/18/18 13:00 03/18/18 13:26 Intake and Output: 03/18/18 03/18/18 06:59 18:59 Intake Total 591 491 Output Total 500 Balance 91 491 - Medications Medications: Current Medications Propofol (Diprivan) 1,000 mg in 100 mls @ 1.932 mls/hr IV .Q24H PRN; Protocol; 5 MCG/KG/MIN PRN Reason: TITRATE PER MD ORDER Last Titration: 03/16/18 09:30 Dose: 0 mcg/kg/min, 0 mls/hr Sodium Chloride (Hypertonic Saline 3%) 500 mls @ 30 mls/hr IV .[id number] [facility] Last Admin: 03/15/18 10:50 Dose: 30 mls/hr Levetiracetam (Keppra 500mg Ivpb) 500 mg in 100 mls @ 400 mls/hr IV Q12 [facility] Last Admin: 03/18/18 09:50 Dose: 400 mls/hr Insulin Human Regular 100 (units/ Sodium Chloride) 100 mls @ 2 mls/hr IV .Q24H PRN; Protocol; 2 UNITS/HR PRN Reason: TITRATE PER MD ORDER Last Titration: 03/18/18 14:30 Dose: 3 units/hr, 3 mls/hr Acetaminophen (Ofirmev) 1,000 mg in 100 mls @ 400 mls/hr IVPB Q6H PRN PRN Reason: Temperature Stop: 03/19/18 09:48 Last Admin: 03/17/18 09:59 Dose: 400 mls/hr Insulin Human Lispro (Humalog High) 0 units SC ACHS [facility] PRN Reason: Protocol Last Admin: 03/17/18 08:59 Dose: Not Given Insulin Lispro Protam/Lispro Human (Humalog Mix 75/25) 15 units SC BIDAC [facility] Last Admin: 03/17/18 08:59 Dose: Not Given Labetalol HCl (Trandate) 10 mg IV Q4 PRN PRN Reason: Blood Pressure 220/110 & above Lactulose (Enulose) 30 gm PO TID [facility] Last Admin: 03/18/18 13:31 Dose: 30 gm Levothyroxine Sodium (Synthroid) 75 mcg PO 0600 [facility] Last Admin: 03/18/18 06:25 Dose: 75 mcg Mannitol (Mannitol) 17 gm IV Q8H [facility] Last Admin: 03/18/18 14:43 Dose: 17 gm Ondansetron HCl (Zofran Inj) 4 mg IVP Q6H PRN PRN Reason: Nausea/Vomiting Last Admin: 03/15/18 00:14 Dose: 4 mg Pantoprazole Sodium (Protonix Inj) 40 mg IVP DAILY [facility] Last Admin: 03/18/18 09:51 Dose: 40 mg Spironolactone (Aldactone) 100 mg PO DAILY [facility] Last Admin: 03/18/18 09:49 Dose: 100 mg Sucralfate (Carafate Tab) 1 gm PO 0600,1600 [facility] Last Admin: 03/18/18 06:25 Dose: 1 gm - Labs Labs: 03/18/18 09:00 03/18/18 09:00 PT 22.2 SECONDS (9.4-12.5) H 03/18/18 09:00 INR 1.91 (0.93-1.08) H 03/18/18 09:00 APTT 38.3 Seconds (25.1-36.5) H 03/11/18 18:45 Attending/Attestation - Attestation I have personally seen and examined this patient.: Yes I have fully participated in the care of the patient.: Yes I have reviewed all pertinent clinical information, including history, physical exam and plan: Yes Notes (Text): I have seen and examined the patient at bedside. Agree with the above note with the following additions/ exceptions: Briefly this is 62 year old male with history of end stage liver disease, Known and untreated Hep C, cirrhosis, DM-2, thrombocytopenia, non compliance with medications who was initially admitted for hepatic encephalopathy. Few days ago patient was found to have large intra cranial hemorrhage with midline shift. Patient was intubated for airway protection. He was given hypertonic saline and mannitol . He was also given FFP and platelets. Repeat Head CT noted. Currently patient is off sedation. He remains unresponsive and does not follow simple commands. Continue keppra. He had fever of 101.7 most likely central cause. Start cooling blankets. Neurologist and neurosurgeon on board. No neuro intervention planned at this time. Overall prognosis is extremely poor and this was discussed with the family. Palliative care consult appreciated.
--- NOTE | 2018-03-18 08:05 | CP.PCM.PN ---
<Mckenna Huff - Last Filed: 03/18/18 14:20> Subjective - Date & Time of Evaluation Date of Evaluation: 03/18/18 Time of Evaluation: 08:00 - Subjective Subjective: PGY2 Neuro progress note for Dr. Bobby Patient seen and examined at bedside. No acute events overnight. Patient was afebrile overnight and tachycardia has resolved. Remains intubated and on PS this AM. Patient is not on any sedation, and has no movement. GCS-3T. No clinical change this AM. Objective - Vital Signs/Intake and Output Vital Signs (last 24 hours): Temp Pulse Resp BP Pulse Ox 98.7 F 89 20 135/72 100 03/18/18 04:00 03/17/18 18:00 03/17/18 16:00 03/17/18 18:00 03/17/18 18:00 Intake and Output: 03/18/18 03/18/18 06:59 18:59 Intake Total 591 25 Output Total 500 Balance 91 25 - Medications Medications: Current Medications Propofol (Diprivan) 1,000 mg in 100 mls @ 1.932 mls/hr IV .Q24H PRN; Protocol; 5 MCG/KG/MIN PRN Reason: TITRATE PER MD ORDER Last Titration: 03/16/18 09:30 Dose: 0 mcg/kg/min, 0 mls/hr Sodium Chloride (Hypertonic Saline 3%) 500 mls @ 30 mls/hr IV .[id number] [facility] Last Admin: 03/15/18 10:50 Dose: 30 mls/hr Levetiracetam (Keppra 500mg Ivpb) 500 mg in 100 mls @ 400 mls/hr IV Q12 [facility] Last Admin: 03/17/18 21:14 Dose: 400 mls/hr Insulin Human Regular 100 (units/ Sodium Chloride) 100 mls @ 2 mls/hr IV .Q24H PRN; Protocol; 2 UNITS/HR PRN Reason: TITRATE PER MD ORDER Last Titration: 03/18/18 07:05 Dose: 3 units/hr, 3 mls/hr Acetaminophen (Ofirmev) 1,000 mg in 100 mls @ 400 mls/hr IVPB Q6H PRN PRN Reason: Temperature Stop: 03/19/18 09:48 Last Admin: 03/17/18 09:59 Dose: 400 mls/hr Insulin Human Lispro (Humalog High) 0 units SC ACHS [facility] PRN Reason: Protocol Last Admin: 03/17/18 08:59 Dose: Not Given Insulin Lispro Protam/Lispro Human (Humalog Mix 75/25) 15 units SC BIDAC [facility] Last Admin: 03/17/18 08:59 Dose: Not Given Labetalol HCl (Trandate) 10 mg IV Q4 PRN PRN Reason: Blood Pressure 220/110 & above Lactulose (Enulose) 30 gm PO TID [facility] Last Admin: 03/17/18 17:48 Dose: 30 gm Levothyroxine Sodium (Synthroid) 75 mcg PO 0600 [facility] Last Admin: 03/18/18 06:25 Dose: 75 mcg Mannitol (Mannitol) 17 gm IV Q8H [facility] Last Admin: 03/17/18 22:32 Dose: 17 gm Ondansetron HCl (Zofran Inj) 4 mg IVP Q6H PRN PRN Reason: Nausea/Vomiting Last Admin: 03/15/18 00:14 Dose: 4 mg Pantoprazole Sodium (Protonix Inj) 40 mg IVP DAILY [facility] Rifaximin (Xifaxan) 550 mg PO BID [facility] PRN Reason: Protocol Last Admin: 03/17/18 17:48 Dose: 550 mg Spironolactone (Aldactone) 100 mg PO DAILY [facility] Last Admin: 03/17/18 09:02 Dose: 100 mg Sucralfate (Carafate Tab) 1 gm PO 0600,1600 [facility] Last Admin: 03/18/18 06:25 Dose: 1 gm - Labs Labs: 03/18/18 05:25 03/17/18 06:40 PT 19.8 SECONDS (9.4-12.5) H 03/16/18 10:45 INR 1.70 (0.93-1.08) H 03/16/18 10:45 APTT 38.3 Seconds (25.1-36.5) H 03/11/18 18:45 - Constitutional Appears: Cachectic, Chronically Ill - Eye Exam Eye Exam: absent: Conjunctival injection, Normal appearance (L eye cataract), PERRL, Scleral icterus Pupil Exam: Fixed, Miosis. absent: NORMAL ACCOMODATION - ENT Exam ENT Exam: Mucous Membranes Dry Additional comments: ET tube in place - Respiratory Exam Additional comments: intubated on vent support - Cardiovascular Exam Cardiovascular Exam: +S1, +S2. absent: Bradycardia, Tachycardia - GI/Abdominal Exam GI & Abdominal Exam: Soft - Extremities Exam Extremities Exam: absent: Pedal Edema - Neurological Exam Neurological Exam: absent: Alert, Awake, CN II-XII Intact, Oriented x3 Additional comments: GCS-3T No corneal No pain Weak gag Fixed pupils No response on sedation vacation No pupillary light reflex - Skin Skin Exam: Dry Assessment and Plan - Assessment and Plan (Free Text) Assessment: 62yo male PMHx End stage liver disease, Hep C, cirrhosis, DM, non compliance, transferred to ICU with massive hemorrhagic CVA Plan: -f/u EEG -Head CT 03/15: showed massive hemorrhage in left partietal lobe extending to cortical surface with 11mm of midline shift -Head CT 03/16: new subarachnoid hemorrhage over the right hemisphere -ICH score: 4 - 97% mortality- poor prognosis -continue mannitol and keppra -treat electrolyte abnl and maintain euglycemia and normothermia -maintain HoB above 30degrees -recommend palliative care -No neurosurgical intervention, poor prognosis Discussed with Dr. Kanu Huff PGY2 <Bandar Bobby - Last Filed: 03/20/18 18:50> Objective - Vital Signs/Intake and Output Vital Signs (last 24 hours): Temp Pulse Resp BP Pulse Ox 98.7 F 90 15 124/64 99 03/20/18 16:00 03/20/18 18:00 03/19/18 16:00 03/20/18 18:00 03/20/18 18:00 Intake and Output: 03/20/18 03/20/18 06:59 18:59 Intake Total 205.5 20 Output Total 600 Balance -394.5 20 - Medications Medications: Current Medications Sodium Chloride (Hypertonic Saline 3%) 500 mls @ 30 mls/hr IV .[id number] [facility] Last Admin: 03/15/18 10:50 Dose: 30 mls/hr Levetiracetam (Keppra 500mg Ivpb) 500 mg in 100 mls @ 400 mls/hr IV Q12 [facility] Last Admin: 03/20/18 09:51 Dose: 400 mls/hr Insulin Human Regular 100 (units/ Sodium Chloride) 100 mls @ 2 mls/hr IV .Q24H PRN; Protocol; 2 UNITS/HR PRN Reason: TITRATE PER MD ORDER Last Titration: 03/20/18 18:12 Dose: 1.5 units/hr, 1.5 mls/hr Multivitamins/Vitamin C 10 ml/ (Dextrose) 1,010 mls @ 75 mls/hr IV .[id number] [facility] Last Admin: 03/20/18 17:40 Dose: 75 mls/hr Insulin Human Lispro (Humalog High) 0 units SC ACHS [facility] PRN Reason: Protocol Last Admin: 03/17/18 08:59 Dose: Not Given Insulin Lispro Protam/Lispro Human (Humalog Mix 75/25) 15 units SC BIDAC [facility] Last Admin: 03/17/18 08:59 Dose: Not Given Labetalol HCl (Trandate) 10 mg IV Q4 PRN PRN Reason: Blood Pressure 220/110 & above Lactulose (Enulose) 30 gm PO TID [facility] Last Admin: 03/20/18 17:41 Dose: 30 gm Levothyroxine Sodium (Synthroid) 75 mcg PO 0600 [facility] Last Admin: 03/20/18 06:10 Dose: 75 mcg Ondansetron HCl (Zofran Inj) 4 mg IVP Q6H PRN PRN Reason: Nausea/Vomiting Last Admin: 03/15/18 00:14 Dose: 4 mg Pantoprazole Sodium (Protonix Inj) 40 mg IVP DAILY [facility] Last Admin: 03/20/18 09:51 Dose: 40 mg Sucralfate (Carafate Oral Susp) 1 gm PO 0600,1600 [facility] Last Admin: 03/20/18 18:00 Dose: 1 gm - Labs Labs: 03/20/18 05:20 03/20/18 05:20 PT 22.7 SECONDS (9.4-12.5) H 03/19/18 08:05 INR 1.95 (0.93-1.08) H 03/19/18 08:05 APTT 38.3 Seconds (25.1-36.5) H 03/11/18 18:45 Attending/Attestation - Attestation I have personally seen and examined this patient.: Yes I have fully participated in the care of the patient.: Yes I have reviewed all pertinent clinical information, including history, physical exam and plan: Yes
[2018-03-18] MEDS ORDERED: Phytonadione 10 MG in Sodium Chloride 0.9% 50 ML IV ONE (08:10)
[2018-03-18 09:17] LABS: EOS % 0.5 % (1.5-5.0); GRAN # 3.35 (1.4-6.5); GRAN % 76.8 % (50.0-68.0); HEMOGLOBIN 11.9 g/dL (14.0-18.0); LYMPH # 0.4 (1.2-3.4); LYMPH % 8.3 % (22.0-35.0); MEAN CORPUSCULAR HGB CONC 32.2 g/dl (31.0-37.0); MEAN PLATELET VOLUME 9.7 fl (7.0-11.0); MONO # 0.6 (0.1-0.6); MONO % 14.4 % (1.0-6.0); RBC 4.1 10^6/uL (3.5-6.1); RED CELL DISTRIBUTION WIDTH 17.8 % (11.5-14.5); WHITE BLOOD COUNT 4.4 10^3/ul (4.5-11.0)
[2018-03-18 09:23] LABS: INR 1.91 (0.93-1.08); PROTHROMBIN TIME 22.2 SECONDS (9.4-12.5)
[2018-03-18 09:26] LABS: BLOOD UREA NITROGEN 28 mg/dL (7-21); CALCIUM 9.2 mg/dL (8.4-10.5); GFR AFRICAN-AMERICAN > 60; GFR NON-AFRICAN AMERICAN > 60
--- NOTE | 2018-03-18 09:42 | CP.PCM.CON ---
History of Present Illness - History of Present Illness History of Present Illness: Palliative consult requested by Dr Julio Hurtado Reason: Goals of care 62 year old male with history of ESLD, cirrhosis, Hep C and DM who presented with with altered mental status. The patient has history of non compliance with meds.He denied emesis, dark stool, fever, chills, nausea, vomiting. Patients mental status had been improving but on 03/14 had an episode of vomiting and become unresponsive. He subsequently suffered a large intraparenchymal hemorrhage with intraventricular extension, edema with mass effect and a midline shift with effacement of the sulci and cisterns. He later had a right subarachnoid hemorrhage. He is intubated and remains unresponsive. PMHx: ESLD, cirrhosis,Hep C, ascites ,hepatic encephalopathy, DM, HTN, varices s /p banding, bilateral inguinal hernias. Social History: Smoker, denies alcohol or substance abuse. Lives with and son. Family History: Non contributory. Advance Care Planning: The patient does not have an advanced directive. Review of Systems: As per HPI, the patient is intubated and unresponsive, unable to obtain. Past Patient History - Infectious Disease Hx of Infectious Diseases: None - Tetanus Immunizations Tetanus Immunization: Unknown - Past Medical History & Family History Past Medical History?: Yes - Past Social History Smoking Status: Light Smoker < 10 Cigarettes Daily - CARDIAC Hx Atrial Fibrillation: No - PULMONARY Hx Respiratory Disorders: No - NEUROLOGICAL Hx Neurological Disorder: No - HEENT Hx HEENT Problems: No - RENAL Hx Chronic Kidney Disease: No - ENDOCRINE/METABOLIC Hx Diabetes Mellitus Type 1: Yes - HEMATOLOGICAL/ONCOLOGICAL Hx Cirrhosis: Yes Hx Hepatitis C: Yes Other/Comment: Inguinal hernia - INTEGUMENTARY Hx Dermatological Problems: No - MUSCULOSKELETAL/RHEUMATOLOGICAL Hx Musculoskeletal Disorders: No Hx Falls: Yes - GASTROINTESTINAL Hx Gastrointestinal Disorders: Yes Other/Comment: Liver Disease - GENITOURINARY/GYNECOLOGICAL Hx Genitourinary Disorders: No - PSYCHIATRIC Hx Psychophysiologic Disorder: No Hx Substance Use: No - SURGICAL HISTORY Hx Surgeries: No - ANESTHESIA Hx Anesthesia: No Hx Anesthesia Reactions: No Meds Home Medications: Home Medication List Medication Instructions Recorded Confirmed Type Furosemide [Lasix] 40 mg PO DAILY #30 tablet 03/14/18 Rx Lactulose [Enulose] 30 gm PO TID #90 udc 03/14/18 Rx Pantoprazole [Protonix EC Tab] 40 mg PO 0600 #30 ect 03/14/18 Rx Spironolactone [Aldactone] 100 mg PO DAILY #30 tablet 03/14/18 Rx rifAXIMin [Xifaxan] 550 mg PO BID #60 tab 03/14/18 Rx Allergies/Adverse Reactions: Allergies Allergy/AdvReac Type Severity Reaction Status Date / Time No Known Allergies Allergy Verified 01/08/18 20:25 - Medications Medications: Current Medications Propofol (Diprivan) 1,000 mg in 100 mls @ 1.932 mls/hr IV .Q24H PRN; Protocol; 5 MCG/KG/MIN PRN Reason: TITRATE PER MD ORDER Last Titration: 03/16/18 09:30 Dose: 0 mcg/kg/min, 0 mls/hr Sodium Chloride (Hypertonic Saline 3%) 500 mls @ 30 mls/hr IV .[id number] [facility] Last Admin: 03/15/18 10:50 Dose: 30 mls/hr Levetiracetam (Keppra 500mg Ivpb) 500 mg in 100 mls @ 400 mls/hr IV Q12 [facility] Last Admin: 03/17/18 21:14 Dose: 400 mls/hr Insulin Human Regular 100 (units/ Sodium Chloride) 100 mls @ 2 mls/hr IV .Q24H PRN; Protocol; 2 UNITS/HR PRN Reason: TITRATE PER MD ORDER Last Titration: 03/18/18 08:28 Dose: 3 units/hr, 3 mls/hr Acetaminophen (Ofirmev) 1,000 mg in 100 mls @ 400 mls/hr IVPB Q6H PRN PRN Reason: Temperature Stop: 03/19/18 09:48 Last Admin: 03/17/18 09:59 Dose: 400 mls/hr Insulin Human Lispro (Humalog High) 0 units SC ACHS [facility] PRN Reason: Protocol Last Admin: 03/17/18 08:59 Dose: Not Given Insulin Lispro Protam/Lispro Human (Humalog Mix 75/25) 15 units SC BIDAC [facility] Last Admin: 03/17/18 08:59 Dose: Not Given Labetalol HCl (Trandate) 10 mg IV Q4 PRN PRN Reason: Blood Pressure 220/110 & above Lactulose (Enulose) 30 gm PO TID [facility] Last Admin: 03/17/18 17:48 Dose: 30 gm Levothyroxine Sodium (Synthroid) 75 mcg PO 0600 [facility] Last Admin: 03/18/18 06:25 Dose: 75 mcg Mannitol (Mannitol) 17 gm IV Q8H [facility] Last Admin: 03/17/18 22:32 Dose: 17 gm Ondansetron HCl (Zofran Inj) 4 mg IVP Q6H PRN PRN Reason: Nausea/Vomiting Last Admin: 03/15/18 00:14 Dose: 4 mg Pantoprazole Sodium (Protonix Inj) 40 mg IVP DAILY [facility] Rifaximin (Xifaxan) 550 mg PO BID [facility] PRN Reason: Protocol Last Admin: 03/17/18 17:48 Dose: 550 mg Spironolactone (Aldactone) 100 mg PO DAILY [facility] Last Admin: 03/17/18 09:02 Dose: 100 mg Sucralfate (Carafate Tab) 1 gm PO 0600,1600 [facility] Last Admin: 03/18/18 06:25 Dose: 1 gm Physical Exam - Constitutional Appears: Chronically Ill - Head Exam Head Exam: NORMOCEPHALIC - Eye Exam Pupil Exam: Fixed - ENT Exam ENT Exam: Mucous Membranes Moist - Neck Exam Neck exam: Positive for: Normal Inspection - Respiratory Exam Respiratory Exam: Decreased Breath Sounds - Cardiovascular Exam Cardiovascular Exam: REGULAR RHYTHM, +S1, +S2 - GI/Abdominal Exam GI & Abdominal Exam: Diminished Bowel Sounds, Distended, Firm - Extremities Exam Extremities exam: Positive for: pedal pulses present Additional comments: lower extremities 2+ edema L>R - Neurological Exam Additional comments: un responsive - Skin Skin Exam: Dry, Warm - Additional Findings Additional findings: Palliative performance scale rating 10% Results - Vital Signs Recent Vital Signs: Last Vital Signs Temp 98.7 F 03/18/18 04:00 Pulse 101 H 03/18/18 08:00 Resp 21 03/18/18 00:18 BP 149/74 03/18/18 08:00 Pulse Ox 100 03/18/18 08:00 - Labs Result Diagrams: 03/18/18 09:00 03/18/18 09:00 Labs: Laboratory Results - last 24 hr 03/17/18 03/17/18 03/17/18 07:23 10:06 11:04 WBC RBC Hgb Hct MCV MCH MCHC RDW Plt Count MPV Gran % Lymph % (Auto) Foster % (Auto) Eos % (Auto) Baso % (Auto) Gran # Lymph # (Auto) Foster # (Auto) Eos # (Auto) Baso # (Auto) PT INR pCO2 pO2 HCO3 ABG pH ABG Total CO2 ABG O2 Saturation ABG O2 Content ABG Base Excess ABG Hemoglobin ABG Carboxyhemoglobin POC ABG HHb (Measured) ABG Methemoglobin ABG O2 Capacity Hgb O2 Saturation FiO2 Sodium Potassium Chloride Carbon Dioxide Anion Gap BUN Creatinine Est GFR ( Amer) Est GFR (Non-Af Amer) POC Glucose (mg/dL) 332 H 395 H 369 H Random Glucose Calcium Ammonia 03/17/18 03/17/18 03/17/18 12:05 12:54 13:54 WBC RBC Hgb Hct MCV MCH MCHC RDW Plt Count MPV Gran % Lymph % (Auto) Foster % (Auto) Eos % (Auto) Baso % (Auto) Gran # Lymph # (Auto) Foster # (Auto) Eos # (Auto) Baso # (Auto) PT INR pCO2 pO2 HCO3 ABG pH ABG Total CO2 ABG O2 Saturation ABG O2 Content ABG Base Excess ABG Hemoglobin ABG Carboxyhemoglobin POC ABG HHb (Measured) ABG Methemoglobin ABG O2 Capacity Hgb O2 Saturation FiO2 Sodium Potassium Chloride Carbon Dioxide Anion Gap BUN Creatinine Est GFR ( Amer) Est GFR (Non-Af Amer) POC Glucose (mg/dL) 292 H 331 H 307 H Random Glucose Calcium Ammonia 03/17/18 03/17/18 03/17/18 15:00 16:01 17:08 WBC RBC Hgb Hct MCV MCH MCHC RDW Plt Count MPV Gran % Lymph % (Auto) Foster % (Auto) Eos % (Auto) Baso % (Auto) Gran # Lymph # (Auto) Foster # (Auto) Eos # (Auto) Baso # (Auto) PT INR pCO2 pO2 HCO3 ABG pH ABG Total CO2 ABG O2 Saturation ABG O2 Content ABG Base Excess ABG Hemoglobin ABG Carboxyhemoglobin POC ABG HHb (Measured) ABG Methemoglobin ABG O2 Capacity Hgb O2 Saturation FiO2 Sodium Potassium Chloride Carbon Dioxide Anion Gap BUN Creatinine Est GFR ( Amer) Est GFR (Non-Af Amer) POC Glucose (mg/dL) 333 H 327 H 390 H Random Glucose Calcium Ammonia 0507/18 05/07/18 05/07/18 18:02 19:25 20:21 WBC RBC Hgb Hct MCV MCH MCHC RDW Plt Count MPV Gran % Lymph % (Auto) Foster % (Auto) Eos % (Auto) Baso % (Auto) Gran # Lymph # (Auto) Foster # (Auto) Eos # (Auto) Baso # (Auto) PT INR pCO2 pO2 HCO3 ABG pH ABG Total CO2 ABG O2 Saturation ABG O2 Content ABG Base Excess ABG Hemoglobin ABG Carboxyhemoglobin POC ABG HHb (Measured) ABG Methemoglobin ABG O2 Capacity Hgb O2 Saturation FiO2 Sodium Potassium Chloride Carbon Dioxide Anion Gap BUN Creatinine Est GFR ( Amer) Est GFR (Non-Af Amer) POC Glucose (mg/dL) 323 H 345 H 330 H Random Glucose Calcium Ammonia 03/17/18 03/17/18 03/17/18 21:08 21:49 22:54 WBC RBC Hgb Hct MCV MCH MCHC RDW Plt Count MPV Gran % Lymph % (Auto) Foster % (Auto) Eos % (Auto) Baso % (Auto) Gran # Lymph # (Auto) Foster # (Auto) Eos # (Auto) Baso # (Auto) PT INR pCO2 pO2 HCO3 ABG pH ABG Total CO2 ABG O2 Saturation ABG O2 Content ABG Base Excess ABG Hemoglobin ABG Carboxyhemoglobin POC ABG HHb (Measured) ABG Methemoglobin ABG O2 Capacity Hgb O2 Saturation FiO2 Sodium Potassium Chloride Carbon Dioxide Anion Gap BUN Creatinine Est GFR ( Amer) Est GFR (Non-Af Amer) POC Glucose (mg/dL) 271 H 266 H 296 H Random Glucose Calcium Ammonia 03/18/18 03/18/18 03/18/18 00:22 01:50 03:58 WBC RBC Hgb Hct MCV MCH MCHC RDW Plt Count MPV Gran % Lymph % (Auto) Foster % (Auto) Eos % (Auto) Baso % (Auto) Gran # Lymph # (Auto) Foster # (Auto) Eos # (Auto) Baso # (Auto) PT INR pCO2 pO2 HCO3 ABG pH ABG Total CO2 ABG O2 Saturation ABG O2 Content ABG Base Excess ABG Hemoglobin ABG Carboxyhemoglobin POC ABG HHb (Measured) ABG Methemoglobin ABG O2 Capacity Hgb O2 Saturation FiO2 Sodium Potassium Chloride Carbon Dioxide Anion Gap BUN Creatinine Est GFR ( Amer) Est GFR (Non-Af Amer) POC Glucose (mg/dL) 257 H 235 H 289 H Random Glucose Calcium Ammonia 03/18/18 03/18/18 03/18/18 05:09 05:20 05:25 WBC RBC Hgb Hct MCV MCH MCHC RDW Plt Count MPV Gran % Lymph % (Auto) Foster % (Auto) Eos % (Auto) Baso % (Auto) Gran # Lymph # (Auto) Foster # (Auto) Eos # (Auto) Baso # (Auto) PT INR pCO2 30 L pO2 162.0 H HCO3 23.9 ABG pH 7.51 H ABG Total CO2 24.8 ABG O2 Saturation 100.7 H ABG O2 Content 15.8 ABG Base Excess 1.5 ABG Hemoglobin 11.3 L ABG Carboxyhemoglobin 2.2 H POC ABG HHb (Measured) -0.7 L ABG Methemoglobin 1.0 ABG O2 Capacity 15.7 L Hgb O2 Saturation 97.4 FiO2 40.0 Sodium Potassium Chloride Carbon Dioxide Anion Gap BUN Creatinine Est GFR ( Amer) Est GFR (Non-Af Amer) POC Glucose (mg/dL) 239 H Random Glucose Calcium Ammonia 50 H 03/18/18 03/18/18 03/18/18 05:25 06:47 07:28 WBC 4.7 RBC 4.18 Hgb 12.1 L Hct 37.6 L MCV 90.0 MCH 28.9 MCHC 32.2 RDW 18.0 H Plt Count 51 L MPV 9.8 Gran % 74.2 H Lymph % (Auto) 10.0 L Foster % (Auto) 15.0 H Eos % (Auto) 0.6 L Baso % (Auto) 0.2 Gran # 3.50 Lymph # (Auto) 0.5 L Foster # (Auto) 0.7 H Eos # (Auto) 0.0 Baso # (Auto) 0.01 PT INR pCO2 pO2 HCO3 ABG pH ABG Total CO2 ABG O2 Saturation ABG O2 Content ABG Base Excess ABG Hemoglobin ABG Carboxyhemoglobin POC ABG HHb (Measured) ABG Methemoglobin ABG O2 Capacity Hgb O2 Saturation FiO2 Sodium Potassium Chloride Carbon Dioxide Anion Gap BUN Creatinine Est GFR ( Amer) Est GFR (Non-Af Amer) POC Glucose (mg/dL) 237 H 259 H Random Glucose Calcium Ammonia 03/18/18 03/18/18 03/18/18 08:27 09:00 09:00 WBC 4.4 L RBC 4.10 Hgb 11.9 L Hct 36.9 L MCV 90.0 MCH 29.0 MCHC 32.2 RDW 17.8 H Plt Count 54 L MPV 9.7 Gran % 76.8 H Lymph % (Auto) 8.3 L Foster % (Auto) 14.4 H Eos % (Auto) 0.5 L Baso % (Auto) 0.0 Gran # 3.35 Lymph # (Auto) 0.4 L Foster # (Auto) 0.6 Eos # (Auto) 0.0 Baso # (Auto) 0.00 PT INR pCO2 pO2 HCO3 ABG pH ABG Total CO2 ABG O2 Saturation ABG O2 Content ABG Base Excess ABG Hemoglobin ABG Carboxyhemoglobin POC ABG HHb (Measured) ABG Methemoglobin ABG O2 Capacity Hgb O2 Saturation FiO2 Sodium 155 H Potassium 3.6 Chloride 120 H Carbon Dioxide 24 Anion Gap 15 BUN 28 H Creatinine 0.7 L Est GFR ( Amer) > 60 Est GFR (Non-Af Amer) > 60 POC Glucose (mg/dL) 261 H Random Glucose 273 H Calcium 9.2 Ammonia 03/18/18 09:00 WBC RBC Hgb Hct MCV MCH MCHC RDW Plt Count MPV Gran % Lymph % (Auto) Foster % (Auto) Eos % (Auto) Baso % (Auto) Gran # Lymph # (Auto) Foster # (Auto) Eos # (Auto) Baso # (Auto) PT 22.2 H INR 1.91 H pCO2 pO2 HCO3 ABG pH ABG Total CO2 ABG O2 Saturation ABG O2 Content ABG Base Excess ABG Hemoglobin ABG Carboxyhemoglobin POC ABG HHb (Measured) ABG Methemoglobin ABG O2 Capacity Hgb O2 Saturation FiO2 Sodium Potassium Chloride Carbon Dioxide Anion Gap BUN Creatinine Est GFR ( Amer) Est GFR (Non-Af Amer) POC Glucose (mg/dL) Random Glucose Calcium Ammonia Assessment & Plan - Assessment and Plan (Free Text) Assessment: 62 year old male with history of ESLD, cirrhosis, ascites, HTN, DM and encephalopathy who was admitted with AMS, hepatic encephalopathy, thrombocytopenia, large left IPH/hemorrhage with midline shift, new subarachnoid hemorrhage over right hemisphere and respiratory failure. He remains intubated,IHS score 4. Patient is not a candidate for neurosurgery. I spoke with Padmini (family designated spokes person) via phone. Padmini states he and family members have been updated of patients medical condition. Affirmed that family is aware that patient suffered a large stroke on left side of brain and as well as a right subarachnoid hemorrhage. Also explained that patients liver disease is in final stages. Padmini states both he and family are aware of this and have been told that his chance of recovery is extremely poor. Resuscitation status discussed. Burdens of CPR explained. Family asked to consider DNR. Padmini states that family has latter day beliefs which conflict with removal of life safe saving interventions. Padmini has requested additional testing be done so that that family can justify DNR when discussing with latter day advisors. I explained that patient is unlikely to survive and that additional testing will not change outcomes or prognosis. Option for comfort care offered. Psychosocial supports provided. I offered to meet with family, Padmini will keep me updated. Time spent with family in goals of care discussion,30 minutes. Plan: Neurology: continue Mannitol and Keppra and lactulose, monitor ammonia levels, maintain euglycemia and normothermia, head of bed 30 degrees. Maintain electrolyte imbalance Pulmonary: intubated, monitor ABG's. DM: continue acu checks, insulin Goals of care , palliative support
[2018-03-18] MEDS: Mannitol 12.5 gm/50 ml Inj IV SCH ×3 (09:50→21:45)
[2018-03-18] MEDS: levETIRAcetam 500mg IVPB 500 MG/100 ML BAG IV SCH ×2 (09:50→21:34)
[2018-03-18] MEDS: Insulin Regular 100 UNITS in Sodium Chloride 0.9% 99 ML IV PRN (11:25)
--- NOTE | 2018-03-18 12:55 | CP.CCUPN ---
<Doug Odonnell - Last Filed: 03/18/18 12:52> CCU Subjective - Physician Review Subjective (Free Text): ICU Progress Note Pt seen and examined at bedside. No acute overnight events. Patient remains intubated, off sedation. ROS limited due to patient's mental status. CCU Objective - Vital Signs / Intake & Output Vital Signs (Last 4 hours): Vital Signs Pulse 03/18/18 10:00 92 H Intake and Output (Last 8hrs): Intake & Output 03/17/18 03/18/18 03/18/18 22:59 06:59 14:59 Intake Total 140 551 35 Output Total 550 500 Balance -410 51 35 Intake: IV 140 501 35 Left Forearm 240 keppra 50 100 mannitol 50 136 Oral 50 Output: Urine 550 500 Urethral (Serna) 550 500 - Physical Exam Head: Positive for: Atraumatic, Normocephalic Pupils: Positive for: Other (2mm non-responsive) Extroacular Muscles: Positive for: EOMI Conjunctiva: Positive for: Normal. Negative for: Injected Ears: Positive for: Normal Mouth: Positive for: Moist Mucous Membranes, Other (intubated) Nose (External): Positive for: Atraumatic Neck: Positive for: Trachea Midline Respiratory/Chest: Positive for: Decreased Breath Sounds, Other (intubated) Cardiovascular: Positive for: Regular Rate and Rhythm, Normal S1, S2. Negative for: Murmurs, Tachycardic Abdomen: Positive for: Normal Bowel Sounds. Negative for: Tenderness, Distention, Peritoneal Signs, Rebound, Guarding, Mass/Organomegaly Back: Positive for: Normal Inspection Upper Extremity: Positive for: Normal Inspection. Negative for: Cyanosis, Edema Lower Extremity: Positive for: Normal Inspection, NORMAL PULSES. Negative for: Edema, CALF TENDERNESS Neurological: Positive for: Other (GCS 3, gag present, no corneal relrex) Skin: Positive for: Warm, Dry, Normal Color. Negative for: Rashes Psychiatric: Positive for: Other (altered) - Medications Active Medications: Active Medications Generic Name Dose Route Start Last Admin Trade Name Freq PRN Reason Stop Dose Admin Propofol 1,000 mg in 100 mls @ 1.932 mls/hr 03/15/18 08:00 03/16/18 09:30 Diprivan IV 0 mcg/kg/min .Q24H PRN 0 mls/hr TITRATE PER MD ORDER Titration Protocol 5 MCG/KG/MIN Sodium Chloride 500 mls @ 30 mls/hr 03/15/18 09:45 03/15/18 10:50 Hypertonic Saline 3% IV 30 mls/hr .[id number] KAVIN Administration Levetiracetam 500 mg in 100 mls @ 400 mls/hr 03/15/18 12:00 03/18/18 09:50 Keppra 500mg Ivpb IV 400 mls/hr Q12 KAVIN Administration Insulin Human Regular 100 100 mls @ 2 mls/hr 03/17/18 07:59 03/18/18 11:25 units/ Sodium Chloride IV 2 units/hr .Q24H PRN 2 mls/hr TITRATE PER MD ORDER Administration Protocol 2 UNITS/HR Acetaminophen 1,000 mg in 100 mls @ 400 mls/hr 03/17/18 09:47 03/17/18 09:59 Ofirmev IVPB 03/19/18 09:48 400 mls/hr Q6H PRN Administration Temperature Insulin Human Lispro 0 units 03/13/18 11:30 03/17/18 08:59 Humalog High SC Not Given ACHS KAVIN Protocol Insulin Lispro Protam/Lispro Human 15 units 03/14/18 16:30 03/17/18 08:59 Humalog Mix 75/25 SC Not Given BIDAC KAVIN Labetalol HCl 10 mg 03/15/18 03:08 Trandate IV Q4 PRN Blood Pressure 220/110 & above Lactulose 30 gm 03/13/18 10:00 03/18/18 09:49 Enulose PO 30 gm TID KAVIN Administration Levothyroxine Sodium 75 mcg 03/17/18 09:51 03/18/18 06:25 Synthroid PO 75 mcg 0600 KAVIN Administration Mannitol 17 gm 03/15/18 14:45 03/18/18 09:50 Mannitol IV 17 gm Q8H KAVIN Administration Ondansetron HCl 4 mg 03/14/18 23:32 03/15/18 00:14 Zofran Inj IVP 4 mg Q6H PRN Administration Nausea/Vomiting Pantoprazole Sodium 40 mg 03/18/18 10:00 03/18/18 09:51 Protonix Inj IVP 40 mg DAILY KAVIN Administration Spironolactone 100 mg 03/12/18 10:00 03/18/18 09:49 Aldactone PO 100 mg DAILY KAVIN Administration Sucralfate 1 gm 03/14/18 16:00 03/18/18 06:25 Carafate Tab PO 1 gm 0600,1600 KAVIN Administration - Patient Studies Lab Studies: Lab Studies 03/18/18 03/18/18 03/18/18 Range/Units 12:20 11:22 10:25 WBC (4.5-11.0) 10^3/ul RBC (3.5-6.1) 10^6/uL Hgb (14.0-18.0) g/dL Hct (42.0-52.0) % MCV (80.0-105.0) fl MCH (25.0-35.0) pg MCHC (31.0-37.0) g/dl RDW (11.5-14.5) % Plt Count (120.0-450.0) 10^3/uL MPV (7.0-11.0) fl Gran % (50.0-68.0) % Lymph % (Auto) (22.0-35.0) % [place] % (Auto) (1.0-6.0) % Eos % (Auto) (1.5-5.0) % Baso % (Auto) (0.0-3.0) % Gran # (1.4-6.5) Lymph # (Auto) (1.2-3.4) [place] # (Auto) (0.1-0.6) Eos # (Auto) (0.0-0.7) Baso # (Auto) (0.0-2.0) K/mm3 PT (9.4-12.5) SECONDS INR (0.93-1.08) pCO2 (35-45) mm/Hg pO2 (80-100) mm/Hg HCO3 (21-28) mmol/L ABG pH (7.35-7.45) ABG Total CO2 (22-28) mmol.L ABG O2 Saturation (95-98) % ABG O2 Content (15-23) ML/dl ABG Base Excess (-2.0-3.0) mmol/L ABG Hemoglobin (11.7-17.4) g/dL ABG Carboxyhemoglobin (0.5-1.5) % POC ABG HHb (Measured) (0-5) % ABG Methemoglobin (0.0-3.0) % ABG O2 Capacity (16-24) mL/dl Hgb O2 Saturation (95.0-98.0) % FiO2 % Sodium (132-148) mmol/L Potassium (3.6-5.0) mmol/L Chloride (98-107) mmol/L Carbon Dioxide (21-33) mmol/L Anion Gap (10-20) BUN (7-21) mg/dL Creatinine (0.8-1.5) mg/dl Est GFR ( Amer) Est GFR (Non-Af Amer) POC Glucose (mg/dL) 216 H 235 H 228 H (65-110) mg/dL Random Glucose (70-110) mg/dL Serum Osmolality (272-300) mosm/kg Calcium (8.4-10.5) mg/dL Ammonia (9-33) umol/L 03/18/18 03/18/18 03/18/18 Range/Units 09:44 09:00 09:00 WBC (4.5-11.0) 10^3/ul RBC (3.5-6.1) 10^6/uL Hgb (14.0-18.0) g/dL Hct (42.0-52.0) % MCV (80.0-105.0) fl MCH (25.0-35.0) pg MCHC (31.0-37.0) g/dl RDW (11.5-14.5) % Plt Count (120.0-450.0) 10^3/uL MPV (7.0-11.0) fl Gran % (50.0-68.0) % Lymph % (Auto) (22.0-35.0) % [place] % (Auto) (1.0-6.0) % Eos % (Auto) (1.5-5.0) % Baso % (Auto) (0.0-3.0) % Gran # (1.4-6.5) Lymph # (Auto) (1.2-3.4) [place] # (Auto) (0.1-0.6) Eos # (Auto) (0.0-0.7) Baso # (Auto) (0.0-2.0) K/mm3 PT 22.2 H (9.4-12.5) SECONDS INR 1.91 H (0.93-1.08) pCO2 (35-45) mm/Hg pO2 (80-100) mm/Hg HCO3 (21-28) mmol/L ABG pH (7.35-7.45) ABG Total CO2 (22-28) mmol.L ABG O2 Saturation (95-98) % ABG O2 Content (15-23) ML/dl ABG Base Excess (-2.0-3.0) mmol/L ABG Hemoglobin (11.7-17.4) g/dL ABG Carboxyhemoglobin (0.5-1.5) % POC ABG HHb (Measured) (0-5) % ABG Methemoglobin (0.0-3.0) % ABG O2 Capacity (16-24) mL/dl Hgb O2 Saturation (95.0-98.0) % FiO2 % Sodium (132-148) mmol/L Potassium (3.6-5.0) mmol/L Chloride (98-107) mmol/L Carbon Dioxide (21-33) mmol/L Anion Gap (10-20) BUN (7-21) mg/dL Creatinine (0.8-1.5) mg/dl Est GFR ( Amer) Est GFR (Non-Af Amer) POC Glucose (mg/dL) 252 H (65-110) mg/dL Random Glucose (70-110) mg/dL Serum Osmolality 326 H (272-300) mosm/kg Calcium (8.4-10.5) mg/dL Ammonia (9-33) umol/L 03/18/18 03/18/18 03/18/18 Range/Units 09:00 09:00 08:27 WBC 4.4 L (4.5-11.0) 10^3/ul RBC 4.10 (3.5-6.1) 10^6/uL Hgb 11.9 L (14.0-18.0) g/dL Hct 36.9 L (42.0-52.0) % MCV 90.0 (80.0-105.0) fl MCH 29.0 (25.0-35.0) pg MCHC 32.2 (31.0-37.0) g/dl RDW 17.8 H (11.5-14.5) % Plt Count 54 L (120.0-450.0) 10^3/uL MPV 9.7 (7.0-11.0) fl Gran % 76.8 H (50.0-68.0) % Lymph % (Auto) 8.3 L (22.0-35.0) % [place] % (Auto) 14.4 H (1.0-6.0) % Eos % (Auto) 0.5 L (1.5-5.0) % Baso % (Auto) 0.0 (0.0-3.0) % Gran # 3.35 (1.4-6.5) Lymph # (Auto) 0.4 L (1.2-3.4) [place] # (Auto) 0.6 (0.1-0.6) Eos # (Auto) 0.0 (0.0-0.7) Baso # (Auto) 0.00 (0.0-2.0) K/mm3 PT (9.4-12.5) SECONDS INR (0.93-1.08) pCO2 (35-45) mm/Hg pO2 (80-100) mm/Hg HCO3 (21-28) mmol/L ABG pH (7.35-7.45) ABG Total CO2 (22-28) mmol.L ABG O2 Saturation (95-98) % ABG O2 Content (15-23) ML/dl ABG Base Excess (-2.0-3.0) mmol/L ABG Hemoglobin (11.7-17.4) g/dL ABG Carboxyhemoglobin (0.5-1.5) % POC ABG HHb (Measured) (0-5) % ABG Methemoglobin (0.0-3.0) % ABG O2 Capacity (16-24) mL/dl Hgb O2 Saturation (95.0-98.0) % FiO2 % Sodium 155 H (132-148) mmol/L Potassium 3.6 (3.6-5.0) mmol/L Chloride 120 H (98-107) mmol/L Carbon Dioxide 24 (21-33) mmol/L Anion Gap 15 (10-20) BUN 28 H (7-21) mg/dL Creatinine 0.7 L (0.8-1.5) mg/dl Est GFR ( Amer) > 60 Est GFR (Non-Af Amer) > 60 POC Glucose (mg/dL) 261 H (65-110) mg/dL Random Glucose 273 H (70-110) mg/dL Serum Osmolality (272-300) mosm/kg Calcium 9.2 (8.4-10.5) mg/dL Ammonia (9-33) umol/L 03/18/18 03/18/18 03/18/18 Range/Units 07:28 06:47 05:25 WBC 4.7 (4.5-11.0) 10^3/ul RBC 4.18 (3.5-6.1) 10^6/uL Hgb 12.1 L (14.0-18.0) g/dL Hct 37.6 L (42.0-52.0) % MCV 90.0 (80.0-105.0) fl MCH 28.9 (25.0-35.0) pg MCHC 32.2 (31.0-37.0) g/dl RDW 18.0 H (11.5-14.5) % Plt Count 51 L (120.0-450.0) 10^3/uL MPV 9.8 (7.0-11.0) fl Gran % 74.2 H (50.0-68.0) % Lymph % (Auto) 10.0 L (22.0-35.0) % [place] % (Auto) 15.0 H (1.0-6.0) % Eos % (Auto) 0.6 L (1.5-5.0) % Baso % (Auto) 0.2 (0.0-3.0) % Gran # 3.50 (1.4-6.5) Lymph # (Auto) 0.5 L (1.2-3.4) [place] # (Auto) 0.7 H (0.1-0.6) Eos # (Auto) 0.0 (0.0-0.7) Baso # (Auto) 0.01 (0.0-2.0) K/mm3 PT (9.4-12.5) SECONDS INR (0.93-1.08) pCO2 (35-45) mm/Hg pO2 (80-100) mm/Hg HCO3 (21-28) mmol/L ABG pH (7.35-7.45) ABG Total CO2 (22-28) mmol.L ABG O2 Saturation (95-98) % ABG O2 Content (15-23) ML/dl ABG Base Excess (-2.0-3.0) mmol/L ABG Hemoglobin (11.7-17.4) g/dL ABG Carboxyhemoglobin (0.5-1.5) % POC ABG HHb (Measured) (0-5) % ABG Methemoglobin (0.0-3.0) % ABG O2 Capacity (16-24) mL/dl Hgb O2 Saturation (95.0-98.0) % FiO2 % Sodium (132-148) mmol/L Potassium (3.6-5.0) mmol/L Chloride (98-107) mmol/L Carbon Dioxide (21-33) mmol/L Anion Gap (10-20) BUN (7-21) mg/dL Creatinine (0.8-1.5) mg/dl Est GFR ( Amer) Est GFR (Non-Af Amer) POC Glucose (mg/dL) 259 H 237 H (65-110) mg/dL Random Glucose (70-110) mg/dL Serum Osmolality (272-300) mosm/kg Calcium (8.4-10.5) mg/dL Ammonia (9-33) umol/L 03/18/18 03/18/18 03/18/18 Range/Units 05:25 05:20 05:09 WBC (4.5-11.0) 10^3/ul RBC (3.5-6.1) 10^6/uL Hgb (14.0-18.0) g/dL Hct (42.0-52.0) % MCV (80.0-105.0) fl MCH (25.0-35.0) pg MCHC (31.0-37.0) g/dl RDW (11.5-14.5) % Plt Count (120.0-450.0) 10^3/uL MPV (7.0-11.0) fl Gran % (50.0-68.0) % Lymph % (Auto) (22.0-35.0) % [place] % (Auto) (1.0-6.0) % Eos % (Auto) (1.5-5.0) % Baso % (Auto) (0.0-3.0) % Gran # (1.4-6.5) Lymph # (Auto) (1.2-3.4) [place] # (Auto) (0.1-0.6) Eos # (Auto) (0.0-0.7) Baso # (Auto) (0.0-2.0) K/mm3 PT (9.4-12.5) SECONDS INR (0.93-1.08) pCO2 30 L (35-45) mm/Hg pO2 162.0 H (80-100) mm/Hg HCO3 23.9 (21-28) mmol/L ABG pH 7.51 H (7.35-7.45) ABG Total CO2 24.8 (22-28) mmol.L ABG O2 Saturation 100.7 H (95-98) % ABG O2 Content 15.8 (15-23) ML/dl ABG Base Excess 1.5 (-2.0-3.0) mmol/L ABG Hemoglobin 11.3 L (11.7-17.4) g/dL ABG Carboxyhemoglobin 2.2 H (0.5-1.5) % POC ABG HHb (Measured) -0.7 L (0-5) % ABG Methemoglobin 1.0 (0.0-3.0) % ABG O2 Capacity 15.7 L (16-24) mL/dl Hgb O2 Saturation 97.4 (95.0-98.0) % FiO2 40.0 % Sodium (132-148) mmol/L Potassium (3.6-5.0) mmol/L Chloride (98-107) mmol/L Carbon Dioxide (21-33) mmol/L Anion Gap (10-20) BUN (7-21) mg/dL Creatinine (0.8-1.5) mg/dl Est GFR ( Amer) Est GFR (Non-Af Amer) POC Glucose (mg/dL) 239 H (65-110) mg/dL Random Glucose (70-110) mg/dL Serum Osmolality (272-300) mosm/kg Calcium (8.4-10.5) mg/dL Ammonia 50 H (9-33) umol/L 03/18/18 03/18/18 03/18/18 Range/Units 03:58 01:50 00:22 WBC (4.5-11.0) 10^3/ul RBC (3.5-6.1) 10^6/uL Hgb (14.0-18.0) g/dL Hct (42.0-52.0) % MCV (80.0-105.0) fl MCH (25.0-35.0) pg MCHC (31.0-37.0) g/dl RDW (11.5-14.5) % Plt Count (120.0-450.0) 10^3/uL MPV (7.0-11.0) fl Gran % (50.0-68.0) % Lymph % (Auto) (22.0-35.0) % [place] % (Auto) (1.0-6.0) % Eos % (Auto) (1.5-5.0) % Baso % (Auto) (0.0-3.0) % Gran # (1.4-6.5) Lymph # (Auto) (1.2-3.4) [place] # (Auto) (0.1-0.6) Eos # (Auto) (0.0-0.7) Baso # (Auto) (0.0-2.0) K/mm3 PT (9.4-12.5) SECONDS INR (0.93-1.08) pCO2 (35-45) mm/Hg pO2 (80-100) mm/Hg HCO3 (21-28) mmol/L ABG pH (7.35-7.45) ABG Total CO2 (22-28) mmol.L ABG O2 Saturation (95-98) % ABG O2 Content (15-23) ML/dl ABG Base Excess (-2.0-3.0) mmol/L ABG Hemoglobin (11.7-17.4) g/dL ABG Carboxyhemoglobin (0.5-1.5) % POC ABG HHb (Measured) (0-5) % ABG Methemoglobin (0.0-3.0) % ABG O2 Capacity (16-24) mL/dl Hgb O2 Saturation (95.0-98.0) % FiO2 % Sodium (132-148) mmol/L Potassium (3.6-5.0) mmol/L Chloride (98-107) mmol/L Carbon Dioxide (21-33) mmol/L Anion Gap (10-20) BUN (7-21) mg/dL Creatinine (0.8-1.5) mg/dl Est GFR ( Amer) Est GFR (Non-Af Amer) POC Glucose (mg/dL) 289 H 235 H 257 H (65-110) mg/dL Random Glucose (70-110) mg/dL Serum Osmolality (272-300) mosm/kg Calcium (8.4-10.5) mg/dL Ammonia (9-33) umol/L 03/17/18 03/17/18 03/17/18 Range/Units 22:54 21:49 21:08 WBC (4.5-11.0) 10^3/ul RBC (3.5-6.1) 10^6/uL Hgb (14.0-18.0) g/dL Hct (42.0-52.0) % MCV (80.0-105.0) fl MCH (25.0-35.0) pg MCHC (31.0-37.0) g/dl RDW (11.5-14.5) % Plt Count (120.0-450.0) 10^3/uL MPV (7.0-11.0) fl Gran % (50.0-68.0) % Lymph % (Auto) (22.0-35.0) % [place] % (Auto) (1.0-6.0) % Eos % (Auto) (1.5-5.0) % Baso % (Auto) (0.0-3.0) % Gran # (1.4-6.5) Lymph # (Auto) (1.2-3.4) [place] # (Auto) (0.1-0.6) Eos # (Auto) (0.0-0.7) Baso # (Auto) (0.0-2.0) K/mm3 PT (9.4-12.5) SECONDS INR (0.93-1.08) pCO2 (35-45) mm/Hg pO2 (80-100) mm/Hg HCO3 (21-28) mmol/L ABG pH (7.35-7.45) ABG Total CO2 (22-28) mmol.L ABG O2 Saturation (95-98) % ABG O2 Content (15-23) ML/dl ABG Base Excess (-2.0-3.0) mmol/L ABG Hemoglobin (11.7-17.4) g/dL ABG Carboxyhemoglobin (0.5-1.5) % POC ABG HHb (Measured) (0-5) % ABG Methemoglobin (0.0-3.0) % ABG O2 Capacity (16-24) mL/dl Hgb O2 Saturation (95.0-98.0) % FiO2 % Sodium (132-148) mmol/L Potassium (3.6-5.0) mmol/L Chloride (98-107) mmol/L Carbon Dioxide (21-33) mmol/L Anion Gap (10-20) BUN (7-21) mg/dL Creatinine (0.8-1.5) mg/dl Est GFR ( Amer) Est GFR (Non-Af Amer) POC Glucose (mg/dL) 296 H 266 H 271 H (65-110) mg/dL Random Glucose (70-110) mg/dL Serum Osmolality (272-300) mosm/kg Calcium (8.4-10.5) mg/dL Ammonia (9-33) umol/L 03/17/18 03/17/18 03/17/18 Range/Units 20:21 19:25 18:02 WBC (4.5-11.0) 10^3/ul RBC (3.5-6.1) 10^6/uL Hgb (14.0-18.0) g/dL Hct (42.0-52.0) % MCV (80.0-105.0) fl MCH (25.0-35.0) pg MCHC (31.0-37.0) g/dl RDW (11.5-14.5) % Plt Count (120.0-450.0) 10^3/uL MPV (7.0-11.0) fl Gran % (50.0-68.0) % Lymph % (Auto) (22.0-35.0) % [place] % (Auto) (1.0-6.0) % Eos % (Auto) (1.5-5.0) % Baso % (Auto) (0.0-3.0) % Gran # (1.4-6.5) Lymph # (Auto) (1.2-3.4) [place] # (Auto) (0.1-0.6) Eos # (Auto) (0.0-0.7) Baso # (Auto) (0.0-2.0) K/mm3 PT (9.4-12.5) SECONDS INR (0.93-1.08) pCO2 (35-45) mm/Hg pO2 (80-100) mm/Hg HCO3 (21-28) mmol/L ABG pH (7.35-7.45) ABG Total CO2 (22-28) mmol.L ABG O2 Saturation (95-98) % ABG O2 Content (15-23) ML/dl ABG Base Excess (-2.0-3.0) mmol/L ABG Hemoglobin (11.7-17.4) g/dL ABG Carboxyhemoglobin (0.5-1.5) % POC ABG HHb (Measured) (0-5) % ABG Methemoglobin (0.0-3.0) % ABG O2 Capacity (16-24) mL/dl Hgb O2 Saturation (95.0-98.0) % FiO2 % Sodium (132-148) mmol/L Potassium (3.6-5.0) mmol/L Chloride (98-107) mmol/L Carbon Dioxide (21-33) mmol/L Anion Gap (10-20) BUN (7-21) mg/dL Creatinine (0.8-1.5) mg/dl Est GFR ( Amer) Est GFR (Non-Af Amer) POC Glucose (mg/dL) 330 H 345 H 323 H (65-110) mg/dL Random Glucose (70-110) mg/dL Serum Osmolality (272-300) mosm/kg Calcium (8.4-10.5) mg/dL Ammonia (9-33) umol/L 03/17/18 03/17/18 03/17/18 Range/Units 17:08 16:01 15:00 WBC (4.5-11.0) 10^3/ul RBC (3.5-6.1) 10^6/uL Hgb (14.0-18.0) g/dL Hct (42.0-52.0) % MCV (80.0-105.0) fl MCH (25.0-35.0) pg MCHC (31.0-37.0) g/dl RDW (11.5-14.5) % Plt Count (120.0-450.0) 10^3/uL MPV (7.0-11.0) fl Gran % (50.0-68.0) % Lymph % (Auto) (22.0-35.0) % [place] % (Auto) (1.0-6.0) % Eos % (Auto) (1.5-5.0) % Baso % (Auto) (0.0-3.0) % Gran # (1.4-6.5) Lymph # (Auto) (1.2-3.4) [place] # (Auto) (0.1-0.6) Eos # (Auto) (0.0-0.7) Baso # (Auto) (0.0-2.0) K/mm3 PT (9.4-12.5) SECONDS INR (0.93-1.08) pCO2 (35-45) mm/Hg pO2 (80-100) mm/Hg HCO3 (21-28) mmol/L ABG pH (7.35-7.45) ABG Total CO2 (22-28) mmol.L ABG O2 Saturation (95-98) % ABG O2 Content (15-23) ML/dl ABG Base Excess (-2.0-3.0) mmol/L ABG Hemoglobin (11.7-17.4) g/dL ABG Carboxyhemoglobin (0.5-1.5) % POC ABG HHb (Measured) (0-5) % ABG Methemoglobin (0.0-3.0) % ABG O2 Capacity (16-24) mL/dl Hgb O2 Saturation (95.0-98.0) % FiO2 % Sodium (132-148) mmol/L Potassium (3.6-5.0) mmol/L Chloride (98-107) mmol/L Carbon Dioxide (21-33) mmol/L Anion Gap (10-20) BUN (7-21) mg/dL Creatinine (0.8-1.5) mg/dl Est GFR ( Amer) Est GFR (Non-Af Amer) POC Glucose (mg/dL) 390 H 327 H 333 H (65-110) mg/dL Random Glucose (70-110) mg/dL Serum Osmolality (272-300) mosm/kg Calcium (8.4-10.5) mg/dL Ammonia (9-33) umol/L 03/17/18 03/17/18 Range/Units 13:54 12:54 WBC (4.5-11.0) 10^3/ul RBC (3.5-6.1) 10^6/uL Hgb (14.0-18.0) g/dL Hct (42.0-52.0) % MCV (80.0-105.0) fl MCH (25.0-35.0) pg MCHC (31.0-37.0) g/dl RDW (11.5-14.5) % Plt Count (120.0-450.0) 10^3/uL MPV (7.0-11.0) fl Gran % (50.0-68.0) % Lymph % (Auto) (22.0-35.0) % [place] % (Auto) (1.0-6.0) % Eos % (Auto) (1.5-5.0) % Baso % (Auto) (0.0-3.0) % Gran # (1.4-6.5) Lymph # (Auto) (1.2-3.4) [place] # (Auto) (0.1-0.6) Eos # (Auto) (0.0-0.7) Baso # (Auto) (0.0-2.0) K/mm3 PT (9.4-12.5) SECONDS INR (0.93-1.08) pCO2 (35-45) mm/Hg pO2 (80-100) mm/Hg HCO3 (21-28) mmol/L ABG pH (7.35-7.45) ABG Total CO2 (22-28) mmol.L ABG O2 Saturation (95-98) % ABG O2 Content (15-23) ML/dl ABG Base Excess (-2.0-3.0) mmol/L ABG Hemoglobin (11.7-17.4) g/dL ABG Carboxyhemoglobin (0.5-1.5) % POC ABG HHb (Measured) (0-5) % ABG Methemoglobin (0.0-3.0) % ABG O2 Capacity (16-24) mL/dl Hgb O2 Saturation (95.0-98.0) % FiO2 % Sodium (132-148) mmol/L Potassium (3.6-5.0) mmol/L Chloride (98-107) mmol/L Carbon Dioxide (21-33) mmol/L Anion Gap (10-20) BUN (7-21) mg/dL Creatinine (0.8-1.5) mg/dl Est GFR ( Amer) Est GFR (Non-Af Amer) POC Glucose (mg/dL) 307 H 331 H (65-110) mg/dL Random Glucose (70-110) mg/dL Serum Osmolality (272-300) mosm/kg Calcium (8.4-10.5) mg/dL Ammonia (9-33) umol/L Laboratory Results - last 24 hr 03/17/18 03/17/18 03/17/18 12:54 13:54 15:00 WBC RBC Hgb Hct MCV MCH MCHC RDW Plt Count MPV Gran % Lymph % (Auto) [place] % (Auto) Eos % (Auto) Baso % (Auto) Gran # Lymph # (Auto) [place] # (Auto) Eos # (Auto) Baso # (Auto) PT INR pCO2 pO2 HCO3 ABG pH ABG Total CO2 ABG O2 Saturation ABG O2 Content ABG Base Excess ABG Hemoglobin ABG Carboxyhemoglobin POC ABG HHb (Measured) ABG Methemoglobin ABG O2 Capacity Hgb O2 Saturation FiO2 Sodium Potassium Chloride Carbon Dioxide Anion Gap BUN Creatinine Est GFR ( Amer) Est GFR (Non-Af Amer) POC Glucose (mg/dL) 331 H 307 H 333 H Random Glucose Serum Osmolality Calcium Ammonia 03/17/18 03/17/18 03/17/18 16:01 17:08 18:02 WBC RBC Hgb Hct MCV MCH MCHC RDW Plt Count MPV Gran % Lymph % (Auto) [place] % (Auto) Eos % (Auto) Baso % (Auto) Gran # Lymph # (Auto) [place] # (Auto) Eos # (Auto) Baso # (Auto) PT INR pCO2 pO2 HCO3 ABG pH ABG Total CO2 ABG O2 Saturation ABG O2 Content ABG Base Excess ABG Hemoglobin ABG Carboxyhemoglobin POC ABG HHb (Measured) ABG Methemoglobin ABG O2 Capacity Hgb O2 Saturation FiO2 Sodium Potassium Chloride Carbon Dioxide Anion Gap BUN Creatinine Est GFR ( Amer) Est GFR (Non-Af Amer) POC Glucose (mg/dL) 327 H 390 H 323 H Random Glucose Serum Osmolality Calcium Ammonia 03/17/18 03/17/18 03/17/18 19:25 20:21 21:08 WBC RBC Hgb Hct MCV MCH MCHC RDW Plt Count MPV Gran % Lymph % (Auto) [place] % (Auto) Eos % (Auto) Baso % (Auto) Gran # Lymph # (Auto) [place] # (Auto) Eos # (Auto) Baso # (Auto) PT INR pCO2 pO2 HCO3 ABG pH ABG Total CO2 ABG O2 Saturation ABG O2 Content ABG Base Excess ABG Hemoglobin ABG Carboxyhemoglobin POC ABG HHb (Measured) ABG Methemoglobin ABG O2 Capacity Hgb O2 Saturation FiO2 Sodium Potassium Chloride Carbon Dioxide Anion Gap BUN Creatinine Est GFR ( Amer) Est GFR (Non-Af Amer) POC Glucose (mg/dL) 345 H 330 H 271 H Random Glucose Serum Osmolality Calcium Ammonia 03/17/18 03/17/18 03/18/18 21:49 22:54 00:22 WBC RBC Hgb Hct MCV MCH MCHC RDW Plt Count MPV Gran % Lymph % (Auto) [place] % (Auto) Eos % (Auto) Baso % (Auto) Gran # Lymph # (Auto) [place] # (Auto) Eos # (Auto) Baso # (Auto) PT INR pCO2 pO2 HCO3 ABG pH ABG Total CO2 ABG O2 Saturation ABG O2 Content ABG Base Excess ABG Hemoglobin ABG Carboxyhemoglobin POC ABG HHb (Measured) ABG Methemoglobin ABG O2 Capacity Hgb O2 Saturation FiO2 Sodium Potassium Chloride Carbon Dioxide Anion Gap BUN Creatinine Est GFR ( Amer) Est GFR (Non-Af Amer) POC Glucose (mg/dL) 266 H 296 H 257 H Random Glucose Serum Osmolality Calcium Ammonia 03/18/18 03/18/18 03/18/18 01:50 03:58 05:09 WBC RBC Hgb Hct MCV MCH MCHC RDW Plt Count MPV Gran % Lymph % (Auto) [place] % (Auto) Eos % (Auto) Baso % (Auto) Gran # Lymph # (Auto) [place] # (Auto) Eos # (Auto) Baso # (Auto) PT INR pCO2 pO2 HCO3 ABG pH ABG Total CO2 ABG O2 Saturation ABG O2 Content ABG Base Excess ABG Hemoglobin ABG Carboxyhemoglobin POC ABG HHb (Measured) ABG Methemoglobin ABG O2 Capacity Hgb O2 Saturation FiO2 Sodium Potassium Chloride Carbon Dioxide Anion Gap BUN Creatinine Est GFR ( Amer) Est GFR (Non-Af Amer) POC Glucose (mg/dL) 235 H 289 H 239 H Random Glucose Serum Osmolality Calcium Ammonia 03/18/18 03/18/18 03/18/18 05:20 05:25 05:25 WBC 4.7 RBC 4.18 Hgb 12.1 L Hct 37.6 L MCV 90.0 MCH 28.9 MCHC 32.2 RDW 18.0 H Plt Count 51 L MPV 9.8 Gran % 74.2 H Lymph % (Auto) 10.0 L [place] % (Auto) 15.0 H Eos % (Auto) 0.6 L Baso % (Auto) 0.2 Gran # 3.50 Lymph # (Auto) 0.5 L [place] # (Auto) 0.7 H Eos # (Auto) 0.0 Baso # (Auto) 0.01 PT INR pCO2 30 L pO2 162.0 H HCO3 23.9 ABG pH 7.51 H ABG Total CO2 24.8 ABG O2 Saturation 100.7 H ABG O2 Content 15.8 ABG Base Excess 1.5 ABG Hemoglobin 11.3 L ABG Carboxyhemoglobin 2.2 H POC ABG HHb (Measured) -0.7 L ABG Methemoglobin 1.0 ABG O2 Capacity 15.7 L Hgb O2 Saturation 97.4 FiO2 40.0 Sodium Potassium Chloride Carbon Dioxide Anion Gap BUN Creatinine Est GFR ( Amer) Est GFR (Non-Af Amer) POC Glucose (mg/dL) Random Glucose Serum Osmolality Calcium Ammonia 50 H 05/08/18 05/08/18 05/08/18 06:47 07:28 08:27 WBC RBC Hgb Hct MCV MCH MCHC RDW Plt Count MPV Gran % Lymph % (Auto) [place] % (Auto) Eos % (Auto) Baso % (Auto) Gran # Lymph # (Auto) [place] # (Auto) Eos # (Auto) Baso # (Auto) PT INR pCO2 pO2 HCO3 ABG pH ABG Total CO2 ABG O2 Saturation ABG O2 Content ABG Base Excess ABG Hemoglobin ABG Carboxyhemoglobin POC ABG HHb (Measured) ABG Methemoglobin ABG O2 Capacity Hgb O2 Saturation FiO2 Sodium Potassium Chloride Carbon Dioxide Anion Gap BUN Creatinine Est GFR ( Amer) Est GFR (Non-Af Amer) POC Glucose (mg/dL) 237 H 259 H 261 H Random Glucose Serum Osmolality Calcium Ammonia 03/18/18 03/18/18 03/18/18 09:00 09:00 09:00 WBC 4.4 L RBC 4.10 Hgb 11.9 L Hct 36.9 L MCV 90.0 MCH 29.0 MCHC 32.2 RDW 17.8 H Plt Count 54 L MPV 9.7 Gran % 76.8 H Lymph % (Auto) 8.3 L [place] % (Auto) 14.4 H Eos % (Auto) 0.5 L Baso % (Auto) 0.0 Gran # 3.35 Lymph # (Auto) 0.4 L [place] # (Auto) 0.6 Eos # (Auto) 0.0 Baso # (Auto) 0.00 PT 22.2 H INR 1.91 H pCO2 pO2 HCO3 ABG pH ABG Total CO2 ABG O2 Saturation ABG O2 Content ABG Base Excess ABG Hemoglobin ABG Carboxyhemoglobin POC ABG HHb (Measured) ABG Methemoglobin ABG O2 Capacity Hgb O2 Saturation FiO2 Sodium 155 H Potassium 3.6 Chloride 120 H Carbon Dioxide 24 Anion Gap 15 BUN 28 H Creatinine 0.7 L Est GFR ( Amer) > 60 Est GFR (Non-Af Amer) > 60 POC Glucose (mg/dL) Random Glucose 273 H Serum Osmolality Calcium 9.2 Ammonia 03/18/18 03/18/18 03/18/18 09:00 09:44 10:25 WBC RBC Hgb Hct MCV MCH MCHC RDW Plt Count MPV Gran % Lymph % (Auto) [place] % (Auto) Eos % (Auto) Baso % (Auto) Gran # Lymph # (Auto) [place] # (Auto) Eos # (Auto) Baso # (Auto) PT INR pCO2 pO2 HCO3 ABG pH ABG Total CO2 ABG O2 Saturation ABG O2 Content ABG Base Excess ABG Hemoglobin ABG Carboxyhemoglobin POC ABG HHb (Measured) ABG Methemoglobin ABG O2 Capacity Hgb O2 Saturation FiO2 Sodium Potassium Chloride Carbon Dioxide Anion Gap BUN Creatinine Est GFR ( Amer) Est GFR (Non-Af Amer) POC Glucose (mg/dL) 252 H 228 H Random Glucose Serum Osmolality 326 H Calcium Ammonia 03/18/18 03/18/18 11:22 12:20 WBC RBC Hgb Hct MCV MCH MCHC RDW Plt Count MPV Gran % Lymph % (Auto) [place] % (Auto) Eos % (Auto) Baso % (Auto) Gran # Lymph # (Auto) [place] # (Auto) Eos # (Auto) Baso # (Auto) PT INR pCO2 pO2 HCO3 ABG pH ABG Total CO2 ABG O2 Saturation ABG O2 Content ABG Base Excess ABG Hemoglobin ABG Carboxyhemoglobin POC ABG HHb (Measured) ABG Methemoglobin ABG O2 Capacity Hgb O2 Saturation FiO2 Sodium Potassium Chloride Carbon Dioxide Anion Gap BUN Creatinine Est GFR ( Amer) Est GFR (Non-Af Amer) POC Glucose (mg/dL) 235 H 216 H Random Glucose Serum Osmolality Calcium Ammonia Fingerstick Blood Sugar Results: 235 Critical Care Progress Note - Nutrition Nutrition: Nutrition Category Date Time Status NPO Diet [DIET] Diets 03/15/18 Breakfast Ordered Assessment/Plan - Assessment and Plan (Free Text) Assessment: 62 year old male with a PMH of end stage liver disease, Hep C, Cirrhosis, DM, non compliance, admitted with large L IPH/CVA. Plan: Neurologic 03/[address] showed massive hemorrhage in left partietal lobe extending to cortical surface with 11mm of midline shift 03/[address] showed new subarachnoid hemorrhage over the right hemisphere Neurosurgery consulted, no surgical intervention, poor prognosis Neurology following, recs appreciated Cont 3% saline at 30cc/hr Cont cohen-precautions Cont mannitol and keppra Known previous hepatic encephalopathy, cont on lactulose and rifaximin Ammonia level 50 Palliative following, discussed case with family, still undecided Hold anticoagulation in setting of hemorrhagic CVA Maintain normothermia Cardiovascular Maintain MAP>65 HD stable Pulmnologic Intubated for airway protection, on PRVC settings 450/18/5/40% Off propofol Maintain sat > 92% Gastrointestinal NPO Continue sucralfate Renal Maintain euvolemia Continues making appropriate urine Infectious disease Having fevers, likely central Start cooling blanket and PRN ofirmev Monitoring Endocrinologic Continue Synthroid 75 mcg daily Hx of DM, cont ISS and accuchecks Cont insulin gtt GI/DVT ppx: Protonix, 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) Dispo: poor prognosis <Guillermo Sanchez - Last Filed: 03/18/18 15:26> CCU Objective - Vital Signs / Intake & Output Vital Signs (Last 4 hours): Vital Signs Temp Pulse Resp BP Pulse Ox 03/18/18 13:29 95 H 03/18/18 13:26 99 H 22 100 03/18/18 13:25 96 H 14 100 03/18/18 13:24 94 H 11 L 100 03/18/18 13:23 92 H 11 L 100 03/18/18 13:22 94 H 13 100 03/18/18 13:21 94 H 15 100 03/18/18 13:20 94 H 13 100 03/18/18 13:19 93 H 12 100 03/18/18 13:18 90 14 100 03/18/18 13:17 96 H 27 H 100 03/18/18 13:16 90 14 100 03/18/18 13:15 95 H 12 100 03/18/18 13:14 93 H 12 100 03/18/18 13:13 94 H 12 100 03/18/18 13:12 91 H 13 100 03/18/18 13:11 93 H 11 L 100 03/18/18 13:10 95 H 15 100 03/18/18 13:09 90 12 100 03/18/18 13:08 96 H 16 100 03/18/18 13:07 92 H 12 100 03/18/18 13:06 92 H 12 100 03/18/18 13:05 87 12 100 03/18/18 13:04 89 15 100 03/18/18 13:03 93 H 13 100 03/18/18 13:02 91 H 13 100 03/18/18 13:01 96 H 13 100 03/18/18 13:00 146/71 03/18/18 12:59 95 H 12 100 03/18/18 12:58 95 H 11 L 100 03/18/18 12:57 94 H 11 L 100 03/18/18 12:56 93 H 13 100 03/18/18 12:55 98 H 12 100 03/18/18 12:54 92 H 13 100 03/18/18 12:53 93 H 12 100 03/18/18 12:49 91 H 13 03/18/18 12:48 93 H 13 03/18/18 12:18 102 H 16 100 03/18/18 12:00 98.9 F 83 13 138/74 100 Intake and Output (Last 8hrs): Intake & Output 03/18/18 03/18/18 03/18/18 06:59 14:59 22:59 Intake Total 551 491 3 Output Total 500 Balance 51 491 3 Intake: IV 501 241 3 Left Forearm 240 keppra 100 100 mannitol 136 100 Oral 50 Other 250 Output: Urine 500 Urethral (Serna) 500 - Medications Active Medications: Active Medications Generic Name Dose Route Start Last Admin Trade Name Freq PRN Reason Stop Dose Admin Propofol 1,000 mg in 100 mls @ 1.932 mls/hr 03/15/18 08:00 03/16/18 09:30 Diprivan IV 0 mcg/kg/min .Q24H PRN 0 mls/hr TITRATE PER MD ORDER Titration Protocol 5 MCG/KG/MIN Sodium Chloride 500 mls @ 30 mls/hr 03/15/18 09:45 03/15/18 10:50 Hypertonic Saline 3% IV 30 mls/hr .[id number] KAVIN Administration Levetiracetam 500 mg in 100 mls @ 400 mls/hr 03/15/18 12:00 03/18/18 09:50 Keppra 500mg Ivpb IV 400 mls/hr Q12 KAVIN Administration Insulin Human Regular 100 100 mls @ 2 mls/hr 03/17/18 07:59 03/18/18 15:04 units/ Sodium Chloride IV 4 units/hr .Q24H PRN 4 mls/hr TITRATE PER MD ORDER Titration Protocol 2 UNITS/HR Acetaminophen 1,000 mg in 100 mls @ 400 mls/hr 03/17/18 09:47 03/17/18 09:59 Ofirmev IVPB 03/19/18 09:48 400 mls/hr Q6H PRN Administration Temperature Insulin Human Lispro 0 units 03/13/18 11:30 03/17/18 08:59 Humalog High SC Not Given ACHS [facility] Protocol Insulin Lispro Protam/Lispro Human 15 units 03/14/18 16:30 03/17/18 08:59 Humalog Mix 75/25 SC Not Given BIDAC KAVIN Labetalol HCl 10 mg 03/15/18 03:08 Trandate IV Q4 PRN Blood Pressure 220/110 & above Lactulose 30 gm 03/13/18 10:00 03/18/18 13:31 Enulose PO 30 gm TID KAVIN Administration Levothyroxine Sodium 75 mcg 03/17/18 09:51 03/18/18 06:25 Synthroid PO 75 mcg 0600 KAVIN Administration Mannitol 17 gm 03/15/18 14:45 03/18/18 14:43 Mannitol IV 17 gm Q8H KAVIN Administration Ondansetron HCl 4 mg 03/14/18 23:32 03/15/18 00:14 Zofran Inj IVP 4 mg Q6H PRN Administration Nausea/Vomiting Pantoprazole Sodium 40 mg 03/18/18 10:00 03/18/18 09:51 Protonix Inj IVP 40 mg DAILY KAVIN Administration Spironolactone 100 mg 03/12/18 10:00 03/18/18 09:49 Aldactone PO 100 mg DAILY KAVIN Administration Sucralfate 1 gm 03/14/18 16:00 03/18/18 06:25 Carafate Tab PO 1 gm 0600,1600 KAVIN Administration - Patient Studies Lab Studies: Lab Studies 03/18/18 03/18/18 03/18/18 Range/Units 14:59 14:28 13:40 WBC (4.5-11.0) 10^3/ul RBC (3.5-6.1) 10^6/uL Hgb (14.0-18.0) g/dL Hct (42.0-52.0) % MCV (80.0-105.0) fl MCH (25.0-35.0) pg MCHC (31.0-37.0) g/dl RDW (11.5-14.5) % Plt Count (120.0-450.0) 10^3/uL MPV (7.0-11.0) fl Gran % (50.0-68.0) % Lymph % (Auto) (22.0-35.0) % [place] % (Auto) (1.0-6.0) % Eos % (Auto) (1.5-5.0) % Baso % (Auto) (0.0-3.0) % Gran # (1.4-6.5) Lymph # (Auto) (1.2-3.4) [place] # (Auto) (0.1-0.6) Eos # (Auto) (0.0-0.7) Baso # (Auto) (0.0-2.0) K/mm3 PT (9.4-12.5) SECONDS INR (0.93-1.08) pCO2 32 L (35-45) mm/Hg pO2 145.0 H (80-100) mm/Hg HCO3 22.8 (21-28) mmol/L ABG pH 7.46 H (7.35-7.45) ABG Total CO2 23.8 (22-28) mmol.L ABG O2 Saturation 100.3 H (95-98) % ABG O2 Content 15.7 (15-23) ML/dl ABG Base Excess -0.5 (-2.0-3.0) mmol/L ABG Hemoglobin 11.3 L (11.7-17.4) g/dL ABG Carboxyhemoglobin 2.2 H (0.5-1.5) % POC ABG HHb (Measured) -0.3 L (0-5) % ABG Methemoglobin 1.0 (0.0-3.0) % ABG O2 Capacity 15.7 L (16-24) mL/dl Hgb O2 Saturation 97.1 (95.0-98.0) % FiO2 40.0 % Sodium (132-148) mmol/L Potassium (3.6-5.0) mmol/L Chloride (98-107) mmol/L Carbon Dioxide (21-33) mmol/L Anion Gap (10-20) BUN (7-21) mg/dL Creatinine (0.8-1.5) mg/dl Est GFR ( Amer) Est GFR (Non-Af Amer) POC Glucose (mg/dL) 321 H 279 H (65-110) mg/dL Random Glucose (70-110) mg/dL Serum Osmolality (272-300) mosm/kg Calcium (8.4-10.5) mg/dL Ammonia (9-33) umol/L 03/18/18 03/18/18 03/18/18 Range/Units 12:59 12:20 11:22 WBC (4.5-11.0) 10^3/ul RBC (3.5-6.1) 10^6/uL Hgb (14.0-18.0) g/dL Hct (42.0-52.0) % MCV (80.0-105.0) fl MCH (25.0-35.0) pg MCHC (31.0-37.0) g/dl RDW (11.5-14.5) % Plt Count (120.0-450.0) 10^3/uL MPV (7.0-11.0) fl Gran % (50.0-68.0) % Lymph % (Auto) (22.0-35.0) % [place] % (Auto) (1.0-6.0) % Eos % (Auto) (1.5-5.0) % Baso % (Auto) (0.0-3.0) % Gran # (1.4-6.5) Lymph # (Auto) (1.2-3.4) [place] # (Auto) (0.1-0.6) Eos # (Auto) (0.0-0.7) Baso # (Auto) (0.0-2.0) K/mm3 PT (9.4-12.5) SECONDS INR (0.93-1.08) pCO2 (35-45) mm/Hg pO2 (80-100) mm/Hg HCO3 (21-28) mmol/L ABG pH (7.35-7.45) ABG Total CO2 (22-28) mmol.L ABG O2 Saturation (95-98) % ABG O2 Content (15-23) ML/dl ABG Base Excess (-2.0-3.0) mmol/L ABG Hemoglobin (11.7-17.4) g/dL ABG Carboxyhemoglobin (0.5-1.5) % POC ABG HHb (Measured) (0-5) % ABG Methemoglobin (0.0-3.0) % ABG O2 Capacity (16-24) mL/dl Hgb O2 Saturation (95.0-98.0) % FiO2 % Sodium (132-148) mmol/L Potassium (3.6-5.0) mmol/L Chloride (98-107) mmol/L Carbon Dioxide (21-33) mmol/L Anion Gap (10-20) BUN (7-21) mg/dL Creatinine (0.8-1.5) mg/dl Est GFR ( Amer) Est GFR (Non-Af Amer) POC Glucose (mg/dL) 236 H 216 H 235 H (65-110) mg/dL Random Glucose (70-110) mg/dL Serum Osmolality (272-300) mosm/kg Calcium (8.4-10.5) mg/dL Ammonia (9-33) umol/L 03/18/18 03/18/18 03/18/18 Range/Units 10:25 09:44 09:00 WBC (4.5-11.0) 10^3/ul RBC (3.5-6.1) 10^6/uL Hgb (14.0-18.0) g/dL Hct (42.0-52.0) % MCV (80.0-105.0) fl MCH (25.0-35.0) pg MCHC (31.0-37.0) g/dl RDW (11.5-14.5) % Plt Count (120.0-450.0) 10^3/uL MPV (7.0-11.0) fl Gran % (50.0-68.0) % Lymph % (Auto) (22.0-35.0) % [place] % (Auto) (1.0-6.0) % Eos % (Auto) (1.5-5.0) % Baso % (Auto) (0.0-3.0) % Gran # (1.4-6.5) Lymph # (Auto) (1.2-3.4) [place] # (Auto) (0.1-0.6) Eos # (Auto) (0.0-0.7) Baso # (Auto) (0.0-2.0) K/mm3 PT (9.4-12.5) SECONDS INR (0.93-1.08) pCO2 (35-45) mm/Hg pO2 (80-100) mm/Hg HCO3 (21-28) mmol/L ABG pH (7.35-7.45) ABG Total CO2 (22-28) mmol.L ABG O2 Saturation (95-98) % ABG O2 Content (15-23) ML/dl ABG Base Excess (-2.0-3.0) mmol/L ABG Hemoglobin (11.7-17.4) g/dL ABG Carboxyhemoglobin (0.5-1.5) % POC ABG HHb (Measured) (0-5) % ABG Methemoglobin (0.0-3.0) % ABG O2 Capacity (16-24) mL/dl Hgb O2 Saturation (95.0-98.0) % FiO2 % Sodium (132-148) mmol/L Potassium (3.6-5.0) mmol/L Chloride (98-107) mmol/L Carbon Dioxide (21-33) mmol/L Anion Gap (10-20) BUN (7-21) mg/dL Creatinine (0.8-1.5) mg/dl Est GFR ( Amer) Est GFR (Non-Af Amer) POC Glucose (mg/dL) 228 H 252 H (65-110) mg/dL Random Glucose (70-110) mg/dL Serum Osmolality 326 H (272-300) mosm/kg Calcium (8.4-10.5) mg/dL Ammonia (9-33) umol/L 03/18/18 03/18/18 03/18/18 Range/Units 09:00 09:00 09:00 WBC 4.4 L (4.5-11.0) 10^3/ul RBC 4.10 (3.5-6.1) 10^6/uL Hgb 11.9 L (14.0-18.0) g/dL Hct 36.9 L (42.0-52.0) % MCV 90.0 (80.0-105.0) fl MCH 29.0 (25.0-35.0) pg MCHC 32.2 (31.0-37.0) g/dl RDW 17.8 H (11.5-14.5) % Plt Count 54 L (120.0-450.0) 10^3/uL MPV 9.7 (7.0-11.0) fl Gran % 76.8 H (50.0-68.0) % Lymph % (Auto) 8.3 L (22.0-35.0) % [place] % (Auto) 14.4 H (1.0-6.0) % Eos % (Auto) 0.5 L (1.5-5.0) % Baso % (Auto) 0.0 (0.0-3.0) % Gran # 3.35 (1.4-6.5) Lymph # (Auto) 0.4 L (1.2-3.4) [place] # (Auto) 0.6 (0.1-0.6) Eos # (Auto) 0.0 (0.0-0.7) Baso # (Auto) 0.00 (0.0-2.0) K/mm3 PT 22.2 H (9.4-12.5) SECONDS INR 1.91 H (0.93-1.08) pCO2 (35-45) mm/Hg pO2 (80-100) mm/Hg HCO3 (21-28) mmol/L ABG pH (7.35-7.45) ABG Total CO2 (22-28) mmol.L ABG O2 Saturation (95-98) % ABG O2 Content (15-23) ML/dl ABG Base Excess (-2.0-3.0) mmol/L ABG Hemoglobin (11.7-17.4) g/dL ABG Carboxyhemoglobin (0.5-1.5) % POC ABG HHb (Measured) (0-5) % ABG Methemoglobin (0.0-3.0) % ABG O2 Capacity (16-24) mL/dl Hgb O2 Saturation (95.0-98.0) % FiO2 % Sodium 155 H (132-148) mmol/L Potassium 3.6 (3.6-5.0) mmol/L Chloride 120 H (98-107) mmol/L Carbon Dioxide 24 (21-33) mmol/L Anion Gap 15 (10-20) BUN 28 H (7-21) mg/dL Creatinine 0.7 L (0.8-1.5) mg/dl Est GFR ( Amer) > 60 Est GFR (Non-Af Amer) > 60 POC Glucose (mg/dL) (65-110) mg/dL Random Glucose 273 H (70-110) mg/dL Serum Osmolality (272-300) mosm/kg Calcium 9.2 (8.4-10.5) mg/dL Ammonia (9-33) umol/L 03/18/18 03/18/18 03/18/18 Range/Units 08:27 07:28 06:47 WBC (4.5-11.0) 10^3/ul RBC (3.5-6.1) 10^6/uL Hgb (14.0-18.0) g/dL Hct (42.0-52.0) % MCV (80.0-105.0) fl MCH (25.0-35.0) pg MCHC (31.0-37.0) g/dl RDW (11.5-14.5) % Plt Count (120.0-450.0) 10^3/uL MPV (7.0-11.0) fl Gran % (50.0-68.0) % Lymph % (Auto) (22.0-35.0) % [place] % (Auto) (1.0-6.0) % Eos % (Auto) (1.5-5.0) % Baso % (Auto) (0.0-3.0) % Gran # (1.4-6.5) Lymph # (Auto) (1.2-3.4) [place] # (Auto) (0.1-0.6) Eos # (Auto) (0.0-0.7) Baso # (Auto) (0.0-2.0) K/mm3 PT (9.4-12.5) SECONDS INR (0.93-1.08) pCO2 (35-45) mm/Hg pO2 (80-100) mm/Hg HCO3 (21-28) mmol/L ABG pH (7.35-7.45) ABG Total CO2 (22-28) mmol.L ABG O2 Saturation (95-98) % ABG O2 Content (15-23) ML/dl ABG Base Excess (-2.0-3.0) mmol/L ABG Hemoglobin (11.7-17.4) g/dL ABG Carboxyhemoglobin (0.5-1.5) % POC ABG HHb (Measured) (0-5) % ABG Methemoglobin (0.0-3.0) % ABG O2 Capacity (16-24) mL/dl Hgb O2 Saturation (95.0-98.0) % FiO2 % Sodium (132-148) mmol/L Potassium (3.6-5.0) mmol/L Chloride (98-107) mmol/L Carbon Dioxide (21-33) mmol/L Anion Gap (10-20) BUN (7-21) mg/dL Creatinine (0.8-1.5) mg/dl Est GFR ( Amer) Est GFR (Non-Af Amer) POC Glucose (mg/dL) 261 H 259 H 237 H (65-110) mg/dL Random Glucose (70-110) mg/dL Serum Osmolality (272-300) mosm/kg Calcium (8.4-10.5) mg/dL Ammonia (9-33) umol/L 03/18/18 03/18/18 03/18/18 Range/Units 05:25 05:25 05:20 WBC 4.7 (4.5-11.0) 10^3/ul RBC 4.18 (3.5-6.1) 10^6/uL Hgb 12.1 L (14.0-18.0) g/dL Hct 37.6 L (42.0-52.0) % MCV 90.0 (80.0-105.0) fl MCH 28.9 (25.0-35.0) pg MCHC 32.2 (31.0-37.0) g/dl RDW 18.0 H (11.5-14.5) % Plt Count 51 L (120.0-450.0) 10^3/uL MPV 9.8 (7.0-11.0) fl Gran % 74.2 H (50.0-68.0) % Lymph % (Auto) 10.0 L (22.0-35.0) % [place] % (Auto) 15.0 H (1.0-6.0) % Eos % (Auto) 0.6 L (1.5-5.0) % Baso % (Auto) 0.2 (0.0-3.0) % Gran # 3.50 (1.4-6.5) Lymph # (Auto) 0.5 L (1.2-3.4) [place] # (Auto) 0.7 H (0.1-0.6) Eos # (Auto) 0.0 (0.0-0.7) Baso # (Auto) 0.01 (0.0-2.0) K/mm3 PT (9.4-12.5) SECONDS INR (0.93-1.08) pCO2 30 L (35-45) mm/Hg pO2 162.0 H (80-100) mm/Hg HCO3 23.9 (21-28) mmol/L ABG pH 7.51 H (7.35-7.45) ABG Total CO2 24.8 (22-28) mmol.L ABG O2 Saturation 100.7 H (95-98) % ABG O2 Content 15.8 (15-23) ML/dl ABG Base Excess 1.5 (-2.0-3.0) mmol/L ABG Hemoglobin 11.3 L (11.7-17.4) g/dL ABG Carboxyhemoglobin 2.2 H (0.5-1.5) % POC ABG HHb (Measured) -0.7 L (0-5) % ABG Methemoglobin 1.0 (0.0-3.0) % ABG O2 Capacity 15.7 L (16-24) mL/dl Hgb O2 Saturation 97.4 (95.0-98.0) % FiO2 40.0 % Sodium (132-148) mmol/L Potassium (3.6-5.0) mmol/L Chloride (98-107) mmol/L Carbon Dioxide (21-33) mmol/L Anion Gap (10-20) BUN (7-21) mg/dL Creatinine (0.8-1.5) mg/dl Est GFR ( Amer) Est GFR (Non-Af Amer) POC Glucose (mg/dL) (65-110) mg/dL Random Glucose (70-110) mg/dL Serum Osmolality (272-300) mosm/kg Calcium (8.4-10.5) mg/dL Ammonia 50 H (9-33) umol/L 03/18/18 03/18/18 03/18/18 Range/Units 05:09 03:58 01:50 WBC (4.5-11.0) 10^3/ul RBC (3.5-6.1) 10^6/uL Hgb (14.0-18.0) g/dL Hct (42.0-52.0) % MCV (80.0-105.0) fl MCH (25.0-35.0) pg MCHC (31.0-37.0) g/dl RDW (11.5-14.5) % Plt Count (120.0-450.0) 10^3/uL MPV (7.0-11.0) fl Gran % (50.0-68.0) % Lymph % (Auto) (22.0-35.0) % [place] % (Auto) (1.0-6.0) % Eos % (Auto) (1.5-5.0) % Baso % (Auto) (0.0-3.0) % Gran # (1.4-6.5) Lymph # (Auto) (1.2-3.4) [place] # (Auto) (0.1-0.6) Eos # (Auto) (0.0-0.7) Baso # (Auto) (0.0-2.0) K/mm3 PT (9.4-12.5) SECONDS INR (0.93-1.08) pCO2 (35-45) mm/Hg pO2 (80-100) mm/Hg HCO3 (21-28) mmol/L ABG pH (7.35-7.45) ABG Total CO2 (22-28) mmol.L ABG O2 Saturation (95-98) % ABG O2 Content (15-23) ML/dl ABG Base Excess (-2.0-3.0) mmol/L ABG Hemoglobin (11.7-17.4) g/dL ABG Carboxyhemoglobin (0.5-1.5) % POC ABG HHb (Measured) (0-5) % ABG Methemoglobin (0.0-3.0) % ABG O2 Capacity (16-24) mL/dl Hgb O2 Saturation (95.0-98.0) % FiO2 % Sodium (132-148) mmol/L Potassium (3.6-5.0) mmol/L Chloride (98-107) mmol/L Carbon Dioxide (21-33) mmol/L Anion Gap (10-20) BUN (7-21) mg/dL Creatinine (0.8-1.5) mg/dl Est GFR ( Amer) Est GFR (Non-Af Amer) POC Glucose (mg/dL) 239 H 289 H 235 H (65-110) mg/dL Random Glucose (70-110) mg/dL Serum Osmolality (272-300) mosm/kg Calcium (8.4-10.5) mg/dL Ammonia (9-33) umol/L 03/18/18 03/17/18 03/17/18 Range/Units 00:22 22:54 21:49 WBC (4.5-11.0) 10^3/ul RBC (3.5-6.1) 10^6/uL Hgb (14.0-18.0) g/dL Hct (42.0-52.0) % MCV (80.0-105.0) fl MCH (25.0-35.0) pg MCHC (31.0-37.0) g/dl RDW (11.5-14.5) % Plt Count (120.0-450.0) 10^3/uL MPV (7.0-11.0) fl Gran % (50.0-68.0) % Lymph % (Auto) (22.0-35.0) % [place] % (Auto) (1.0-6.0) % Eos % (Auto) (1.5-5.0) % Baso % (Auto) (0.0-3.0) % Gran # (1.4-6.5) Lymph # (Auto) (1.2-3.4) [place] # (Auto) (0.1-0.6) Eos # (Auto) (0.0-0.7) Baso # (Auto) (0.0-2.0) K/mm3 PT (9.4-12.5) SECONDS INR (0.93-1.08) pCO2 (35-45) mm/Hg pO2 (80-100) mm/Hg HCO3 (21-28) mmol/L ABG pH (7.35-7.45) ABG Total CO2 (22-28) mmol.L ABG O2 Saturation (95-98) % ABG O2 Content (15-23) ML/dl ABG Base Excess (-2.0-3.0) mmol/L ABG Hemoglobin (11.7-17.4) g/dL ABG Carboxyhemoglobin (0.5-1.5) % POC ABG HHb (Measured) (0-5) % ABG Methemoglobin (0.0-3.0) % ABG O2 Capacity (16-24) mL/dl Hgb O2 Saturation (95.0-98.0) % FiO2 % Sodium (132-148) mmol/L Potassium (3.6-5.0) mmol/L Chloride (98-107) mmol/L Carbon Dioxide (21-33) mmol/L Anion Gap (10-20) BUN (7-21) mg/dL Creatinine (0.8-1.5) mg/dl Est GFR ( Amer) Est GFR (Non-Af Amer) POC Glucose (mg/dL) 257 H 296 H 266 H (65-110) mg/dL Random Glucose (70-110) mg/dL Serum Osmolality (272-300) mosm/kg Calcium (8.4-10.5) mg/dL Ammonia (9-33) umol/L 03/17/18 03/17/18 03/17/18 Range/Units 21:08 20:21 19:25 WBC (4.5-11.0) 10^3/ul RBC (3.5-6.1) 10^6/uL Hgb (14.0-18.0) g/dL Hct (42.0-52.0) % MCV (80.0-105.0) fl MCH (25.0-35.0) pg MCHC (31.0-37.0) g/dl RDW (11.5-14.5) % Plt Count (120.0-450.0) 10^3/uL MPV (7.0-11.0) fl Gran % (50.0-68.0) % Lymph % (Auto) (22.0-35.0) % [place] % (Auto) (1.0-6.0) % Eos % (Auto) (1.5-5.0) % Baso % (Auto) (0.0-3.0) % Gran # (1.4-6.5) Lymph # (Auto) (1.2-3.4) [place] # (Auto) (0.1-0.6) Eos # (Auto) (0.0-0.7) Baso # (Auto) (0.0-2.0) K/mm3 PT (9.4-12.5) SECONDS INR (0.93-1.08) pCO2 (35-45) mm/Hg pO2 (80-100) mm/Hg HCO3 (21-28) mmol/L ABG pH (7.35-7.45) ABG Total CO2 (22-28) mmol.L ABG O2 Saturation (95-98) % ABG O2 Content (15-23) ML/dl ABG Base Excess (-2.0-3.0) mmol/L ABG Hemoglobin (11.7-17.4) g/dL ABG Carboxyhemoglobin (0.5-1.5) % POC ABG HHb (Measured) (0-5) % ABG Methemoglobin (0.0-3.0) % ABG O2 Capacity (16-24) mL/dl Hgb O2 Saturation (95.0-98.0) % FiO2 % Sodium (132-148) mmol/L Potassium (3.6-5.0) mmol/L Chloride (98-107) mmol/L Carbon Dioxide (21-33) mmol/L Anion Gap (10-20) BUN (7-21) mg/dL Creatinine (0.8-1.5) mg/dl Est GFR ( Amer) Est GFR (Non-Af Amer) POC Glucose (mg/dL) 271 H 330 H 345 H (65-110) mg/dL Random Glucose (70-110) mg/dL Serum Osmolality (272-300) mosm/kg Calcium (8.4-10.5) mg/dL Ammonia (9-33) umol/L 03/17/18 03/17/18 03/17/18 Range/Units 18:02 17:08 16:01 WBC (4.5-11.0) 10^3/ul RBC (3.5-6.1) 10^6/uL Hgb (14.0-18.0) g/dL Hct (42.0-52.0) % MCV (80.0-105.0) fl MCH (25.0-35.0) pg MCHC (31.0-37.0) g/dl RDW (11.5-14.5) % Plt Count (120.0-450.0) 10^3/uL MPV (7.0-11.0) fl Gran % (50.0-68.0) % Lymph % (Auto) (22.0-35.0) % [place] % (Auto) (1.0-6.0) % Eos % (Auto) (1.5-5.0) % Baso % (Auto) (0.0-3.0) % Gran # (1.4-6.5) Lymph # (Auto) (1.2-3.4) [place] # (Auto) (0.1-0.6) Eos # (Auto) (0.0-0.7) Baso # (Auto) (0.0-2.0) K/mm3 PT (9.4-12.5) SECONDS INR (0.93-1.08) pCO2 (35-45) mm/Hg pO2 (80-100) mm/Hg HCO3 (21-28) mmol/L ABG pH (7.35-7.45) ABG Total CO2 (22-28) mmol.L ABG O2 Saturation (95-98) % ABG O2 Content (15-23) ML/dl ABG Base Excess (-2.0-3.0) mmol/L ABG Hemoglobin (11.7-17.4) g/dL ABG Carboxyhemoglobin (0.5-1.5) % POC ABG HHb (Measured) (0-5) % ABG Methemoglobin (0.0-3.0) % ABG O2 Capacity (16-24) mL/dl Hgb O2 Saturation (95.0-98.0) % FiO2 % Sodium (132-148) mmol/L Potassium (3.6-5.0) mmol/L Chloride (98-107) mmol/L Carbon Dioxide (21-33) mmol/L Anion Gap (10-20) BUN (7-21) mg/dL Creatinine (0.8-1.5) mg/dl Est GFR ( Amer) Est GFR (Non-Af Amer) POC Glucose (mg/dL) 323 H 390 H 327 H (65-110) mg/dL Random Glucose (70-110) mg/dL Serum Osmolality (272-300) mosm/kg Calcium (8.4-10.5) mg/dL Ammonia (9-33) umol/L 03/17/18 03/17/18 03/17/18 Range/Units 15:00 13:54 12:54 WBC (4.5-11.0) 10^3/ul RBC (3.5-6.1) 10^6/uL Hgb (14.0-18.0) g/dL Hct (42.0-52.0) % MCV (80.0-105.0) fl MCH (25.0-35.0) pg MCHC (31.0-37.0) g/dl RDW (11.5-14.5) % Plt Count (120.0-450.0) 10^3/uL MPV (7.0-11.0) fl Gran % (50.0-68.0) % Lymph % (Auto) (22.0-35.0) % [place] % (Auto) (1.0-6.0) % Eos % (Auto) (1.5-5.0) % Baso % (Auto) (0.0-3.0) % Gran # (1.4-6.5) Lymph # (Auto) (1.2-3.4) [place] # (Auto) (0.1-0.6) Eos # (Auto) (0.0-0.7) Baso # (Auto) (0.0-2.0) K/mm3 PT (9.4-12.5) SECONDS INR (0.93-1.08) pCO2 (35-45) mm/Hg pO2 (80-100) mm/Hg HCO3 (21-28) mmol/L ABG pH (7.35-7.45) ABG Total CO2 (22-28) mmol.L ABG O2 Saturation (95-98) % ABG O2 Content (15-23) ML/dl ABG Base Excess (-2.0-3.0) mmol/L ABG Hemoglobin (11.7-17.4) g/dL ABG Carboxyhemoglobin (0.5-1.5) % POC ABG HHb (Measured) (0-5) % ABG Methemoglobin (0.0-3.0) % ABG O2 Capacity (16-24) mL/dl Hgb O2 Saturation (95.0-98.0) % FiO2 % Sodium (132-148) mmol/L Potassium (3.6-5.0) mmol/L Chloride (98-107) mmol/L Carbon Dioxide (21-33) mmol/L Anion Gap (10-20) BUN (7-21) mg/dL Creatinine (0.8-1.5) mg/dl Est GFR ( Amer) Est GFR (Non-Af Amer) POC Glucose (mg/dL) 333 H 307 H 331 H (65-110) mg/dL Random Glucose (70-110) mg/dL Serum Osmolality (272-300) mosm/kg Calcium (8.4-10.5) mg/dL Ammonia (9-33) umol/L Laboratory Results - last 24 hr 03/17/18 03/17/18 03/17/18 12:54 13:54 15:00 WBC RBC Hgb Hct MCV MCH MCHC RDW Plt Count MPV Gran % Lymph % (Auto) [place] % (Auto) Eos % (Auto) Baso % (Auto) Gran # Lymph # (Auto) [place] # (Auto) Eos # (Auto) Baso # (Auto) PT INR pCO2 pO2 HCO3 ABG pH ABG Total CO2 ABG O2 Saturation ABG O2 Content ABG Base Excess ABG Hemoglobin ABG Carboxyhemoglobin POC ABG HHb (Measured) ABG Methemoglobin ABG O2 Capacity Hgb O2 Saturation FiO2 Sodium Potassium Chloride Carbon Dioxide Anion Gap BUN Creatinine Est GFR ( Amer) Est GFR (Non-Af Amer) POC Glucose (mg/dL) 331 H 307 H 333 H Random Glucose Serum Osmolality Calcium Ammonia 03/17/18 03/17/18 03/17/18 16:01 17:08 18:02 WBC RBC Hgb Hct MCV MCH MCHC RDW Plt Count MPV Gran % Lymph % (Auto) [place] % (Auto) Eos % (Auto) Baso % (Auto) Gran # Lymph # (Auto) [place] # (Auto) Eos # (Auto) Baso # (Auto) PT INR pCO2 pO2 HCO3 ABG pH ABG Total CO2 ABG O2 Saturation ABG O2 Content ABG Base Excess ABG Hemoglobin ABG Carboxyhemoglobin POC ABG HHb (Measured) ABG Methemoglobin ABG O2 Capacity Hgb O2 Saturation FiO2 Sodium Potassium Chloride Carbon Dioxide Anion Gap BUN Creatinine Est GFR ( Amer) Est GFR (Non-Af Amer) POC Glucose (mg/dL) 327 H 390 H 323 H Random Glucose Serum Osmolality Calcium Ammonia 03/17/18 03/17/18 03/17/18 19:25 20:21 21:08 WBC RBC Hgb Hct MCV MCH MCHC RDW Plt Count MPV Gran % Lymph % (Auto) [place] % (Auto) Eos % (Auto) Baso % (Auto) Gran # Lymph # (Auto) [place] # (Auto) Eos # (Auto) Baso # (Auto) PT INR pCO2 pO2 HCO3 ABG pH ABG Total CO2 ABG O2 Saturation ABG O2 Content ABG Base Excess ABG Hemoglobin ABG Carboxyhemoglobin POC ABG HHb (Measured) ABG Methemoglobin ABG O2 Capacity Hgb O2 Saturation FiO2 Sodium Potassium Chloride Carbon Dioxide Anion Gap BUN Creatinine Est GFR ( Amer) Est GFR (Non-Af Amer) POC Glucose (mg/dL) 345 H 330 H 271 H Random Glucose Serum Osmolality Calcium Ammonia 03/17/18 03/17/18 03/18/18 21:49 22:54 00:22 WBC RBC Hgb Hct MCV MCH MCHC RDW Plt Count MPV Gran % Lymph % (Auto) [place] % (Auto) Eos % (Auto) Baso % (Auto) Gran # Lymph # (Auto) [place] # (Auto) Eos # (Auto) Baso # (Auto) PT INR pCO2 pO2 HCO3 ABG pH ABG Total CO2 ABG O2 Saturation ABG O2 Content ABG Base Excess ABG Hemoglobin ABG Carboxyhemoglobin POC ABG HHb (Measured) ABG Methemoglobin ABG O2 Capacity Hgb O2 Saturation FiO2 Sodium Potassium Chloride Carbon Dioxide Anion Gap BUN Creatinine Est GFR ( Amer) Est GFR (Non-Af Amer) POC Glucose (mg/dL) 266 H 296 H 257 H Random Glucose Serum Osmolality Calcium Ammonia 0508/18 05/08/18 05/08/18 01:50 03:58 05:09 WBC RBC Hgb Hct MCV MCH MCHC RDW Plt Count MPV Gran % Lymph % (Auto) [place] % (Auto) Eos % (Auto) Baso % (Auto) Gran # Lymph # (Auto) [place] # (Auto) Eos # (Auto) Baso # (Auto) PT INR pCO2 pO2 HCO3 ABG pH ABG Total CO2 ABG O2 Saturation ABG O2 Content ABG Base Excess ABG Hemoglobin ABG Carboxyhemoglobin POC ABG HHb (Measured) ABG Methemoglobin ABG O2 Capacity Hgb O2 Saturation FiO2 Sodium Potassium Chloride Carbon Dioxide Anion Gap BUN Creatinine Est GFR ( Amer) Est GFR (Non-Af Amer) POC Glucose (mg/dL) 235 H 289 H 239 H Random Glucose Serum Osmolality Calcium Ammonia 03/18/18 03/18/18 03/18/18 05:20 05:25 05:25 WBC 4.7 RBC 4.18 Hgb 12.1 L Hct 37.6 L MCV 90.0 MCH 28.9 MCHC 32.2 RDW 18.0 H Plt Count 51 L MPV 9.8 Gran % 74.2 H Lymph % (Auto) 10.0 L [place] % (Auto) 15.0 H Eos % (Auto) 0.6 L Baso % (Auto) 0.2 Gran # 3.50 Lymph # (Auto) 0.5 L [place] # (Auto) 0.7 H Eos # (Auto) 0.0 Baso # (Auto) 0.01 PT INR pCO2 30 L pO2 162.0 H HCO3 23.9 ABG pH 7.51 H ABG Total CO2 24.8 ABG O2 Saturation 100.7 H ABG O2 Content 15.8 ABG Base Excess 1.5 ABG Hemoglobin 11.3 L ABG Carboxyhemoglobin 2.2 H POC ABG HHb (Measured) -0.7 L ABG Methemoglobin 1.0 ABG O2 Capacity 15.7 L Hgb O2 Saturation 97.4 FiO2 40.0 Sodium Potassium Chloride Carbon Dioxide Anion Gap BUN Creatinine Est GFR ( Amer) Est GFR (Non-Af Amer) POC Glucose (mg/dL) Random Glucose Serum Osmolality Calcium Ammonia 50 H 03/18/18 03/18/18 03/18/18 06:47 07:28 08:27 WBC RBC Hgb Hct MCV MCH MCHC RDW Plt Count MPV Gran % Lymph % (Auto) [place] % (Auto) Eos % (Auto) Baso % (Auto) Gran # Lymph # (Auto) [place] # (Auto) Eos # (Auto) Baso # (Auto) PT INR pCO2 pO2 HCO3 ABG pH ABG Total CO2 ABG O2 Saturation ABG O2 Content ABG Base Excess ABG Hemoglobin ABG Carboxyhemoglobin POC ABG HHb (Measured) ABG Methemoglobin ABG O2 Capacity Hgb O2 Saturation FiO2 Sodium Potassium Chloride Carbon Dioxide Anion Gap BUN Creatinine Est GFR ( Amer) Est GFR (Non-Af Amer) POC Glucose (mg/dL) 237 H 259 H 261 H Random Glucose Serum Osmolality Calcium Ammonia 03/18/18 03/18/18 03/18/18 09:00 09:00 09:00 WBC 4.4 L RBC 4.10 Hgb 11.9 L Hct 36.9 L MCV 90.0 MCH 29.0 MCHC 32.2 RDW 17.8 H Plt Count 54 L MPV 9.7 Gran % 76.8 H Lymph % (Auto) 8.3 L [place] % (Auto) 14.4 H Eos % (Auto) 0.5 L Baso % (Auto) 0.0 Gran # 3.35 Lymph # (Auto) 0.4 L [place] # (Auto) 0.6 Eos # (Auto) 0.0 Baso # (Auto) 0.00 PT 22.2 H INR 1.91 H pCO2 pO2 HCO3 ABG pH ABG Total CO2 ABG O2 Saturation ABG O2 Content ABG Base Excess ABG Hemoglobin ABG Carboxyhemoglobin POC ABG HHb (Measured) ABG Methemoglobin ABG O2 Capacity Hgb O2 Saturation FiO2 Sodium 155 H Potassium 3.6 Chloride 120 H Carbon Dioxide 24 Anion Gap 15 BUN 28 H Creatinine 0.7 L Est GFR ( Amer) > 60 Est GFR (Non-Af Amer) > 60 POC Glucose (mg/dL) Random Glucose 273 H Serum Osmolality Calcium 9.2 Ammonia 03/18/18 03/18/18 03/18/18 09:00 09:44 10:25 WBC RBC Hgb Hct MCV MCH MCHC RDW Plt Count MPV Gran % Lymph % (Auto) [place] % (Auto) Eos % (Auto) Baso % (Auto) Gran # Lymph # (Auto) [place] # (Auto) Eos # (Auto) Baso # (Auto) PT INR pCO2 pO2 HCO3 ABG pH ABG Total CO2 ABG O2 Saturation ABG O2 Content ABG Base Excess ABG Hemoglobin ABG Carboxyhemoglobin POC ABG HHb (Measured) ABG Methemoglobin ABG O2 Capacity Hgb O2 Saturation FiO2 Sodium Potassium Chloride Carbon Dioxide Anion Gap BUN Creatinine Est GFR ( Amer) Est GFR (Non-Af Amer) POC Glucose (mg/dL) 252 H 228 H Random Glucose Serum Osmolality 326 H Calcium Ammonia 03/18/18 03/18/18 03/18/18 11:22 12:20 12:59 WBC RBC Hgb Hct MCV MCH MCHC RDW Plt Count MPV Gran % Lymph % (Auto) [place] % (Auto) Eos % (Auto) Baso % (Auto) Gran # Lymph # (Auto) [place] # (Auto) Eos # (Auto) Baso # (Auto) PT INR pCO2 pO2 HCO3 ABG pH ABG Total CO2 ABG O2 Saturation ABG O2 Content ABG Base Excess ABG Hemoglobin ABG Carboxyhemoglobin POC ABG HHb (Measured) ABG Methemoglobin ABG O2 Capacity Hgb O2 Saturation FiO2 Sodium Potassium Chloride Carbon Dioxide Anion Gap BUN Creatinine Est GFR ( Amer) Est GFR (Non-Af Amer) POC Glucose (mg/dL) 235 H 216 H 236 H Random Glucose Serum Osmolality Calcium Ammonia 03/18/18 03/18/18 03/18/18 13:40 14:28 14:59 WBC RBC Hgb Hct MCV MCH MCHC RDW Plt Count MPV Gran % Lymph % (Auto) [place] % (Auto) Eos % (Auto) Baso % (Auto) Gran # Lymph # (Auto) [place] # (Auto) Eos # (Auto) Baso # (Auto) PT INR pCO2 32 L pO2 145.0 H HCO3 22.8 ABG pH 7.46 H ABG Total CO2 23.8 ABG O2 Saturation 100.3 H ABG O2 Content 15.7 ABG Base Excess -0.5 ABG Hemoglobin 11.3 L ABG Carboxyhemoglobin 2.2 H POC ABG HHb (Measured) -0.3 L ABG Methemoglobin 1.0 ABG O2 Capacity 15.7 L Hgb O2 Saturation 97.1 FiO2 40.0 Sodium Potassium Chloride Carbon Dioxide Anion Gap BUN Creatinine Est GFR ( Amer) Est GFR (Non-Af Amer) POC Glucose (mg/dL) 279 H 321 H Random Glucose Serum Osmolality Calcium Ammonia Critical Care Progress Note - Nutrition Nutrition: Nutrition Category Date Time Status NPO Diet [DIET] Diets 03/15/18 Breakfast Ordered Attending/Attestation - Attestation I have personally seen and examined this patient.: Yes I have fully participated in the care of the patient.: Yes I have reviewed all pertinent clinical information: Yes Notes (Text): 03/18/18 15:[address] Sanchez note
[2018-03-18 13:43] LABS: ARTERIAL BLOOD GAS HCO3 22.8 mmol/L (21-28); ARTERIAL BLOOD GAS HEMOGLOBIN 11.3 g/dL (11.7-17.4); ARTERIAL BLOOD GAS O2 CAPACITY 15.7 mL/dl (16-24); ARTERIAL BLOOD GAS O2 CONTENT 15.7 ML/dl (15-23); ARTERIAL BLOOD GAS O2 SAT 100.3 % (95-98); ARTERIAL BLOOD GAS PCO2 32 mm/Hg (35-45); ARTERIAL BLOOD GAS PH 7.46 (7.35-7.45); ARTERIAL BLOOD GAS TCO2 23.8 mmol.L (22-28)
--- NOTE | 2018-03-18 14:11 | PN ---
DATE: 03/18/2018 SUBJECTIVE: The patient was seen and examined at bedside. He is off of sedation. He is intubated. He is on pressor support 5/5 with FiO2 of 40%. He is pulling tidal volume about 500, respiratory rate 16. His rapid shallow breathing index is mostly between 30 and 40. PHYSICAL EXAMINATION: VITAL SIGNS: Heart rate 96, oxygen saturation 100% on 40% FiO2, end-tidal CO2 on the monitor 31, respiratory rate 16, blood pressure 149/74. The patient is on insulin drip. ENT: Head and neck atraumatic. LUNGS: Clear to auscultation bilaterally. HEART: Regular rate and rhythm. S1, S2 normal. ABDOMEN: Soft, nontender and nondistended. MUSCULOSKELETAL: No C/C/E. NEUROLOGIC: The patient was not seen moving any of his extremities spontaneously. SKIN: Moist. PSYCHIATRIC: Patient is off sedation; however, not responsive to painful touch or verbal stimuli. LABORATORY DATA: Labs are pending. MEDICATIONS: Tylenol p.r.n., insulin drip, Keppra, labetalol p.r.n., lactulose, Synthroid, mannitol every 8 hours, Protonix, vitamin K x1, Aldactone. ASSESSMENT AND PLAN: This is a 62-year-old gentleman with large intraparenchymal bleed with intraventricular extension with no supratentorial activity. He is intubated, unable to protect his airways; however, doing well on pressor support 5/5 with 40% of FiO2. His vital signs are stable. He is still on mannitol and his INR 1.7. I am going to give him vitamin K to maintain INR less than 1.4. I will repeat his labs to see what his Na is and plasma osmolality. We will continue to maintain euvolemia, euglycemia, normothermia, and oxygen saturation more than 100%. We will continue with head of bed elevated at >35 degrees, oral hygiene. I will speak with family to better understand their wishes, whether to proceed with trach, peg or terminal extubation with Palliative Care/Comfort Care/hospice. ccm time 40 min Guillermo Sanchez MD [facility] # [id number] NATHAN
[2018-03-19] MEDS: Levothyroxine 75 MCG TAB PO SCH (05:40)
[2018-03-19 06:52] LABS: HEMOGLOBIN 11.9 g/dL (14.0-18.0); MEAN CELL VOLUME 90.2 fl (80.0-105.0); MEAN CORPUSCULAR HGB CONC 32.2 g/dl (31.0-37.0); MEAN PLATELET VOLUME 10.1 fl (7.0-11.0); RBC 4.1 10^6/uL (3.5-6.1); RED CELL DISTRIBUTION WIDTH 18.1 % (11.5-14.5); WHITE BLOOD COUNT 4.2 10^3/ul (4.5-11.0)
--- NOTE | 2018-03-19 07:08 | CP.PCM.PN ---
<Mckenna Huff - Last Filed: 03/19/18 15:00> Subjective - Date & Time of Evaluation Date of Evaluation: 03/19/18 Time of Evaluation: 07:45 - Subjective Subjective: PGY2 Neuro progress note for Dr. Bobby Patient seen and examined at bedside. No acute events overnight and patient is clinically unchanged. Remains intubated and on PS this AM and off sedation. GCS- 3T. ROS unobtainable secondary to patient condition. Objective - Vital Signs/Intake and Output Vital Signs (last 24 hours): Temp Pulse Resp BP Pulse Ox 99.9 F H 100 H 19 163/70 H 93 L 03/19/18 04:00 03/19/18 07:00 03/19/18 06:53 03/19/18 06:00 03/19/18 06:53 Intake and Output: 03/19/18 03/19/18 06:59 18:59 Intake Total 287 2 Output Total 400 Balance -113 2 - Medications Medications: Current Medications Propofol (Diprivan) 1,000 mg in 100 mls @ 1.932 mls/hr IV .Q24H PRN; Protocol; 5 MCG/KG/MIN PRN Reason: TITRATE PER MD ORDER Last Titration: 03/16/18 09:30 Dose: 0 mcg/kg/min, 0 mls/hr Sodium Chloride (Hypertonic Saline 3%) 500 mls @ 30 mls/hr IV .[id number] [facility] Last Admin: 03/15/18 10:50 Dose: 30 mls/hr Levetiracetam (Keppra 500mg Ivpb) 500 mg in 100 mls @ 400 mls/hr IV Q12 [facility] Last Admin: 03/18/18 21:34 Dose: 400 mls/hr Insulin Human Regular 100 (units/ Sodium Chloride) 100 mls @ 2 mls/hr IV .Q24H PRN; Protocol; 2 UNITS/HR PRN Reason: TITRATE PER MD ORDER Last Titration: 03/19/18 07:00 Dose: 3 units/hr, 3 mls/hr Acetaminophen (Ofirmev) 1,000 mg in 100 mls @ 400 mls/hr IVPB Q6H PRN PRN Reason: Temperature Stop: 03/19/18 09:48 Last Admin: 03/17/18 09:59 Dose: 400 mls/hr Insulin Human Lispro (Humalog High) 0 units SC ACHS [facility] PRN Reason: Protocol Last Admin: 03/17/18 08:59 Dose: Not Given Insulin Lispro Protam/Lispro Human (Humalog Mix 75/25) 15 units SC BIDAC [facility] Last Admin: 03/17/18 08:59 Dose: Not Given Labetalol HCl (Trandate) 10 mg IV Q4 PRN PRN Reason: Blood Pressure 220/110 & above Lactulose (Enulose) 30 gm PO TID [facility] Last Admin: 03/18/18 17:00 Dose: 30 gm Levothyroxine Sodium (Synthroid) 75 mcg PO 0600 [facility] Last Admin: 03/19/18 05:40 Dose: 75 mcg Mannitol (Mannitol) 17 gm IV Q8H [facility] Last Admin: 03/18/18 21:45 Dose: 17 gm Ondansetron HCl (Zofran Inj) 4 mg IVP Q6H PRN PRN Reason: Nausea/Vomiting Last Admin: 03/15/18 00:14 Dose: 4 mg Pantoprazole Sodium (Protonix Inj) 40 mg IVP DAILY [facility] Last Admin: 03/18/18 09:51 Dose: 40 mg Spironolactone (Aldactone) 100 mg PO DAILY [facility] Last Admin: 03/18/18 09:49 Dose: 100 mg Sucralfate (Carafate Tab) 1 gm PO 0600,1600 [facility] Last Admin: 03/19/18 05:40 Dose: 1 gm - Labs Labs: 03/18/18 09:00 03/18/18 09:00 PT 22.2 SECONDS (9.4-12.5) H 03/18/18 09:00 INR 1.91 (0.93-1.08) H 03/18/18 09:00 APTT 38.3 Seconds (25.1-36.5) H 03/11/18 18:45 - Constitutional Appears: Cachectic, Chronically Ill - Eye Exam Eye Exam: absent: Conjunctival injection, EOMI, Scleral icterus Pupil Exam: Fixed, Miosis - ENT Exam Additional comments: ET tube in place - Respiratory Exam Additional comments: intubated on vent support - Cardiovascular Exam Cardiovascular Exam: +S1, +S2 - Neurological Exam Neurological Exam: absent: Alert, Awake, CN II-XII Intact, Oriented x3 Additional comments: GCS-3T No corneal No pain Weak gag Fixed pupils No response on sedation vacation No pupillary light reflex - Skin Skin Exam: Dry, Intact Assessment and Plan - Assessment and Plan (Free Text) Assessment: 62yo male PMHx End stage liver disease, Hep C, cirrhosis, DM, non compliance, transferred to ICU with massive hemorrhagic CVA Plan: -Head CT 03/15: showed massive hemorrhage in left partietal lobe extending to cortical surface with 11mm of midline shift -Head CT 03/16: new subarachnoid hemorrhage over the right hemisphere -ICH score: 4 - 97% mortality- poor prognosis -continue mannitol and keppra -treat electrolyte abnl and maintain euglycemia and normothermia -maintain HoB above 30degrees -recommend palliative care -Hold anticoagulation in setting of hemorrhagic CVA -No neurosurgical intervention, poor prognosis Neurology will sign off at this time Please reconsult as needed Discussed with Dr. Kanu Huff PGY2 <Bandar Bobby - Last Filed: 03/20/18 18:50> Objective - Vital Signs/Intake and Output Vital Signs (last 24 hours): Temp Pulse Resp BP Pulse Ox 98.7 F 90 15 124/64 99 03/20/18 16:00 03/20/18 18:00 03/19/18 16:00 03/20/18 18:00 03/20/18 18:00 Intake and Output: 03/20/18 03/20/18 06:59 18:59 Intake Total 205.5 20 Output Total 600 Balance -394.5 20 - Medications Medications: Current Medications Sodium Chloride (Hypertonic Saline 3%) 500 mls @ 30 mls/hr IV .[id number] [facility] Last Admin: 03/15/18 10:50 Dose: 30 mls/hr Levetiracetam (Keppra 500mg Ivpb) 500 mg in 100 mls @ 400 mls/hr IV Q12 [facility] Last Admin: 03/20/18 09:51 Dose: 400 mls/hr Insulin Human Regular 100 (units/ Sodium Chloride) 100 mls @ 2 mls/hr IV .Q24H PRN; Protocol; 2 UNITS/HR PRN Reason: TITRATE PER MD ORDER Last Titration: 03/20/18 18:12 Dose: 1.5 units/hr, 1.5 mls/hr Multivitamins/Vitamin C 10 ml/ (Dextrose) 1,010 mls @ 75 mls/hr IV .[id number] [facility] Last Admin: 03/20/18 17:40 Dose: 75 mls/hr Insulin Human Lispro (Humalog High) 0 units SC ACHS [facility] PRN Reason: Protocol Last Admin: 03/17/18 08:59 Dose: Not Given Insulin Lispro Protam/Lispro Human (Humalog Mix 75/25) 15 units SC BIDAC [facility] Last Admin: 03/17/18 08:59 Dose: Not Given Labetalol HCl (Trandate) 10 mg IV Q4 PRN PRN Reason: Blood Pressure 220/110 & above Lactulose (Enulose) 30 gm PO TID [facility] Last Admin: 03/20/18 17:41 Dose: 30 gm Levothyroxine Sodium (Synthroid) 75 mcg PO 0600 [facility] Last Admin: 03/20/18 06:10 Dose: 75 mcg Ondansetron HCl (Zofran Inj) 4 mg IVP Q6H PRN PRN Reason: Nausea/Vomiting Last Admin: 03/15/18 00:14 Dose: 4 mg Pantoprazole Sodium (Protonix Inj) 40 mg IVP DAILY [facility] Last Admin: 03/20/18 09:51 Dose: 40 mg Sucralfate (Carafate Oral Susp) 1 gm PO 0600,1600 [facility] Last Admin: 03/20/18 18:00 Dose: 1 gm - Labs Labs: 03/20/18 05:20 03/20/18 05:20 PT 22.7 SECONDS (9.4-12.5) H 03/19/18 08:05 INR 1.95 (0.93-1.08) H 03/19/18 08:05 APTT 38.3 Seconds (25.1-36.5) H 03/11/18 18:45 Attending/Attestation - Attestation I have personally seen and examined this patient.: Yes I have fully participated in the care of the patient.: Yes I have reviewed all pertinent clinical information, including history, physical exam and plan: Yes
--- NOTE | 2018-03-19 07:53 | CP.PCM.PN ---
<Padmini Tran - Last Filed: 03/19/18 10:57> Subjective - Date & Time of Evaluation Date of Evaluation: 03/19/18 Time of Evaluation: 07:40 - Subjective Subjective: Medicine Note for Dr. Flores Patient seen and examined at bedside. No acute event overnight. Patient is clinical condition is unchanged. Patient is intubated and on pressure support this morning. Palliative care to spoke with family for possible withdrawal of care due to poor prognosis and family car sales representative Padmini stated that the family is undecided of plan but yazidi beliefs prohibit them from withdrawing life preserving measures. Padmini also told Palliative that the family will have further discussions then speak with her again. Family will speak to yazidi advisors and will update palliative care once a decision is rendered. Objective - Vital Signs/Intake and Output Vital Signs (last 24 hours): Temp Pulse Resp BP Pulse Ox 99.9 F H 100 H 19 163/70 H 93 L 03/19/18 04:00 03/19/18 07:00 03/19/18 06:53 03/19/18 06:00 03/19/18 06:53 Intake and Output: 03/19/18 03/19/18 06:59 18:59 Intake Total 287 2 Output Total 400 Balance -113 2 - Medications Medications: Current Medications Propofol (Diprivan) 1,000 mg in 100 mls @ 1.932 mls/hr IV .Q24H PRN; Protocol; 5 MCG/KG/MIN PRN Reason: TITRATE PER MD ORDER Last Titration: 03/16/18 09:30 Dose: 0 mcg/kg/min, 0 mls/hr Sodium Chloride (Hypertonic Saline 3%) 500 mls @ 30 mls/hr IV .[id number] [facility] Last Admin: 03/15/18 10:50 Dose: 30 mls/hr Levetiracetam (Keppra 500mg Ivpb) 500 mg in 100 mls @ 400 mls/hr IV Q12 [facility] Last Admin: 03/18/18 21:34 Dose: 400 mls/hr Insulin Human Regular 100 (units/ Sodium Chloride) 100 mls @ 2 mls/hr IV .Q24H PRN; Protocol; 2 UNITS/HR PRN Reason: TITRATE PER MD ORDER Last Titration: 03/19/18 07:00 Dose: 3 units/hr, 3 mls/hr Acetaminophen (Ofirmev) 1,000 mg in 100 mls @ 400 mls/hr IVPB Q6H PRN PRN Reason: Temperature Stop: 03/19/18 09:48 Last Admin: 03/17/18 09:59 Dose: 400 mls/hr Insulin Human Lispro (Humalog High) 0 units SC ACHS [facility] PRN Reason: Protocol Last Admin: 03/17/18 08:59 Dose: Not Given Insulin Lispro Protam/Lispro Human (Humalog Mix 75/25) 15 units SC BIDAC [facility] Last Admin: 03/17/18 08:59 Dose: Not Given Labetalol HCl (Trandate) 10 mg IV Q4 PRN PRN Reason: Blood Pressure 220/110 & above Lactulose (Enulose) 30 gm PO TID [facility] Last Admin: 03/18/18 17:00 Dose: 30 gm Levothyroxine Sodium (Synthroid) 75 mcg PO 0600 [facility] Last Admin: 03/19/18 05:40 Dose: 75 mcg Ondansetron HCl (Zofran Inj) 4 mg IVP Q6H PRN PRN Reason: Nausea/Vomiting Last Admin: 03/15/18 00:14 Dose: 4 mg Pantoprazole Sodium (Protonix Inj) 40 mg IVP DAILY [facility] Last Admin: 03/18/18 09:51 Dose: 40 mg Spironolactone (Aldactone) 100 mg PO DAILY [facility] Last Admin: 03/18/18 09:49 Dose: 100 mg Sucralfate (Carafate Tab) 1 gm PO 0600,1600 [facility] Last Admin: 03/19/18 05:40 Dose: 1 gm - Labs Labs: 03/19/18 05:40 03/18/18 09:00 PT 22.2 SECONDS (9.4-12.5) H 03/18/18 09:00 INR 1.91 (0.93-1.08) H 03/18/18 09:00 APTT 38.3 Seconds (25.1-36.5) H 03/11/18 18:45 - Constitutional Appears: Toxic - Head Exam Additional comments: - Head Exam Head Exam: ATRAUMATIC, NORMOCEPHALIC - Eye Exam Additional comments: pupils 2 mm and nonreactive - ENT Exam ENT Exam: Mucous Membranes Moist - Respiratory Exam Additional comments: intubated and on pressure support - Cardiovascular Exam Cardiovascular Exam: REGULAR RHYTHM - GI/Abdominal Exam GI & Abdominal Exam: Distended, Soft, Normal Bowel Sounds - Neurological Exam Neurological Exam: Altered Additional comments: GCS 3T, no corneal reflex, gag reflex still present - Psychiatric Exam Psychiatric exam: Flat Affect - Skin Skin Exam: Dry, Intact, Warm Assessment and Plan - Assessment and Plan (Free Text) Assessment: 62 M with PMH of end stage liver disease, Hep C, Cirrhosis, DM, non-compliance, intubated in the ICU with SAH/CVA. Overall, patient has poor prognosis Neuro (5/5) Head CT showed massive hemorrhage in left partietal lobe extending to cortical surface with 11mm of midline shift (5/6) head CT showed new subarachnoid hemorrhage over the right hemisphere Neurosurgery consult, no surgical intervention, poor prognosis Neurology consult, help appreciated Hold 3% saline Mannitol and keppra BMP Q4H, Na 155 uptrending lactulose and rifaximin ammonia level is elevated at 50 today Palliative care consult HOB 30 degrees Cardio Maintain MAP>65 Tachycardic Pulm Intubated and on pressure support this morning Maintain sat > 90% GI NPO Continue sucralfate Renal NA 155, uptrending Strict I's & O's Monitor Urine output ID febrile cooling blanket ofirmev Monitor Endo Synthroid 75 Insulin drip Maintain euglycemia 140-180 GI/DVT ppx: Protonix, no chemical anticoagulation Dispo: Family is in discussion with Palliative care about the plan going forward. Discussed with Dr. Flores <Chetna Flores - Last Filed: 03/19/18 17:49> Objective - Vital Signs/Intake and Output Vital Signs (last 24 hours): Temp Pulse Resp BP Pulse Ox 98.6 F 98 H 15 138/67 99 03/19/18 16:00 03/19/18 16:00 03/19/18 16:00 03/19/18 16:00 03/19/18 16:00 Intake and Output: 03/19/18 03/19/18 06:59 18:59 Intake Total 287 411 Output Total 400 900 Balance -113 -489 - Medications Medications: Current Medications Propofol (Diprivan) 1,000 mg in 100 mls @ 1.932 mls/hr IV .Q24H PRN; Protocol; 5 MCG/KG/MIN PRN Reason: TITRATE PER MD ORDER Last Titration: 03/16/18 09:30 Dose: 0 mcg/kg/min, 0 mls/hr Sodium Chloride (Hypertonic Saline 3%) 500 mls @ 30 mls/hr IV .[id number] [facility] Last Admin: 03/15/18 10:50 Dose: 30 mls/hr Levetiracetam (Keppra 500mg Ivpb) 500 mg in 100 mls @ 400 mls/hr IV Q12 [facility] Last Admin: 03/19/18 10:29 Dose: Not Given Insulin Human Regular 100 (units/ Sodium Chloride) 100 mls @ 2 mls/hr IV .Q24H PRN; Protocol; 2 UNITS/HR PRN Reason: TITRATE PER MD ORDER Last Titration: 03/19/18 16:11 Dose: 3 units/hr, 3 mls/hr Insulin Human Lispro (Humalog High) 0 units SC ACHS [facility] PRN Reason: Protocol Last Admin: 03/17/18 08:59 Dose: Not Given Insulin Lispro Protam/Lispro Human (Humalog Mix 75/25) 15 units SC BIDAC [facility] Last Admin: 03/17/18 08:59 Dose: Not Given Labetalol HCl (Trandate) 10 mg IV Q4 PRN PRN Reason: Blood Pressure 220/110 & above Lactulose (Enulose) 30 gm PO TID [facility] Last Admin: 03/19/18 14:03 Dose: 30 gm Levothyroxine Sodium (Synthroid) 75 mcg PO 0600 [facility] Last Admin: 03/19/18 05:40 Dose: 75 mcg Ondansetron HCl (Zofran Inj) 4 mg IVP Q6H PRN PRN Reason: Nausea/Vomiting Last Admin: 03/15/18 00:14 Dose: 4 mg Pantoprazole Sodium (Protonix Inj) 40 mg IVP DAILY [facility] Last Admin: 03/19/18 10:29 Dose: Not Given Spironolactone (Aldactone) 100 mg PO DAILY [facility] Last Admin: 03/19/18 10:28 Dose: Not Given Sucralfate (Carafate Tab) 1 gm PO 0600,1600 [facility] Last Admin: 03/19/18 16:37 Dose: 1 gm - Labs Labs: 03/19/18 05:40 03/19/18 05:40 PT 22.7 SECONDS (9.4-12.5) H 03/19/18 08:05 INR 1.95 (0.93-1.08) H 03/19/18 08:05 APTT 38.3 Seconds (25.1-36.5) H 03/11/18 18:45 Attending/Attestation - Attestation I have personally seen and examined this patient.: Yes I have fully participated in the care of the patient.: Yes I have reviewed all pertinent clinical information, including history, physical exam and plan: Yes Notes (Text): I have seen and examined the patient at bedside. Agree with the above note. Patient's prognosis is guarded. Discussed with palliative care nurse. Patients family is requesting for trach and peg.
[2018-03-19 08:09] LABS: ALB/GLOB RATIO 0.7 (1.1-1.8); ALBUMIN 2.5 g/dL (3.0-4.8); ALT/SGPT 44 U/L (7-56); AST/SGOT 73 U/L (17-59); BLOOD UREA NITROGEN 33 mg/dL (7-21); GFR AFRICAN-AMERICAN > 60; GFR NON-AFRICAN AMERICAN > 60
[2018-03-19 08:31] LABS: INR 1.95 (0.93-1.08); PROTHROMBIN TIME 22.7 SECONDS (9.4-12.5)
[2018-03-19] MEDS: levETIRAcetam 500mg IVPB 500 MG/100 ML BAG IV SCH ×3 (08:34→22:00)
--- NOTE | 2018-03-19 13:03 | CP.CCUPN ---
<Tommy Mcconnell - Last Filed: 03/19/18 12:56> CCU Subjective - Physician Review Subjective (Free Text): 03/19/18 12:56 Tommy Mcconnell D.O. PGY-2, Internal Medicine Resident, Critical Care Progress Note 62 year old male with a PMH of end stage liver disease, Hep C, Cirrhosis, DM, non compliance, admitted with large L IPH/CVA. Patient was seen and examined at bedside. Continues to be intubated although now on pressure support doing well. Neurologically unchanged. No overnight events. CCU Objective - Vital Signs / Intake & Output Vital Signs (Last 4 hours): Vital Signs Temp Pulse Resp BP Pulse Ox 03/19/18 12:00 98.1 F 99 H 14 140/71 99 03/19/18 11:00 101 H 143/73 100 03/19/18 10:00 107 H 140/77 03/19/18 09:00 137/78 03/19/18 08:59 101 H 99 Intake and Output (Last 8hrs): Intake & Output 03/18/18 03/19/18 03/19/18 22:59 06:59 14:59 Intake Total 198 282 9 Output Total 440 400 Balance -242 -118 9 Intake: IV 98 282 9 Insulin drip 32 282 Left Forearm 50 Other 100 Output: Urine 440 400 Urethral (Seran) 440 400 - Physical Exam Head: Positive for: Atraumatic, Normocephalic Pupils: Positive for: Other (2mm non-responsive) Extroacular Muscles: Positive for: EOMI Conjunctiva: Positive for: Normal. Negative for: Injected Ears: Positive for: Normal Mouth: Positive for: Moist Mucous Membranes, Other (intubated) Nose (External): Positive for: Atraumatic Neck: Positive for: Trachea Midline Respiratory/Chest: Positive for: Decreased Breath Sounds, Other (intubated) Cardiovascular: Positive for: Regular Rate and Rhythm, Normal S1, S2. Negative for: Murmurs, Tachycardic Abdomen: Positive for: Normal Bowel Sounds. Negative for: Tenderness, Distention, Peritoneal Signs, Rebound, Guarding, Mass/Organomegaly Back: Positive for: Normal Inspection Upper Extremity: Positive for: Normal Inspection. Negative for: Cyanosis, Edema Lower Extremity: Positive for: Normal Inspection, NORMAL PULSES. Negative for: Edema, CALF TENDERNESS Neurological: Positive for: Other (GCS 3, gag present, no corneal relrex, triple flexor present) Skin: Positive for: Warm, Dry, Normal Color. Negative for: Rashes Psychiatric: Positive for: Other (altered) - Medications Active Medications: Active Medications Generic Name Dose Route Start Last Admin Trade Name Freq PRN Reason Stop Dose Admin Propofol 1,000 mg in 100 mls @ 1.932 mls/hr 03/15/18 08:00 03/16/18 09:30 Diprivan IV 0 mcg/kg/min .Q24H PRN 0 mls/hr TITRATE PER MD ORDER Titration Protocol 5 MCG/KG/MIN Sodium Chloride 500 mls @ 30 mls/hr 03/15/18 09:45 03/15/18 10:50 Hypertonic Saline 3% IV 30 mls/hr .[id number] KAVIN Administration Levetiracetam 500 mg in 100 mls @ 400 mls/hr 03/15/18 12:00 03/19/18 10:29 Keppra 500mg Ivpb IV Not Given Q12 [facility] Insulin Human Regular 100 100 mls @ 2 mls/hr 03/17/18 07:59 03/19/18 12:30 units/ Sodium Chloride IV 2 units/hr .Q24H PRN 2 mls/hr TITRATE PER MD ORDER Titration Protocol 2 UNITS/HR Insulin Human Lispro 0 units 03/13/18 11:30 03/17/18 08:59 Humalog High SC Not Given ACHS [facility] Protocol Insulin Lispro Protam/Lispro Human 15 units 03/14/18 16:30 03/17/18 08:59 Humalog Mix 75/25 SC Not Given BIDAC [facility] Labetalol HCl 10 mg 03/15/18 03:08 Trandate IV Q4 PRN Blood Pressure 220/110 & above Lactulose 30 gm 03/13/18 10:00 03/19/18 10:28 Enulose PO Not Given TID [facility] Levothyroxine Sodium 75 mcg 03/17/18 09:51 03/19/18 05:40 Synthroid PO 75 mcg 0600 KAVIN Administration Ondansetron HCl 4 mg 03/14/18 23:32 03/15/18 00:14 Zofran Inj IVP 4 mg Q6H PRN Administration Nausea/Vomiting Pantoprazole Sodium 40 mg 03/18/18 10:00 03/19/18 10:29 Protonix Inj IVP Not Given DAILY [facility] Spironolactone 100 mg 03/12/18 10:00 03/19/18 10:28 Aldactone PO Not Given DAILY [facility] Sucralfate 1 gm 03/14/18 16:00 03/19/18 05:40 Carafate Tab PO 1 gm 0600,1600 KAVIN Administration - Patient Studies Lab Studies: Lab Studies 03/19/18 03/19/18 03/19/18 Range/Units 12:30 10:26 08:08 WBC (4.5-11.0) 10^3/ul RBC (3.5-6.1) 10^6/uL Hgb (14.0-18.0) g/dL Hct (42.0-52.0) % MCV (80.0-105.0) fl MCH (25.0-35.0) pg MCHC (31.0-37.0) g/dl RDW (11.5-14.5) % Plt Count (120.0-450.0) 10^3/uL MPV (7.0-11.0) fl PT (9.4-12.5) SECONDS INR (0.93-1.08) pCO2 (35-45) mm/Hg pO2 (80-100) mm/Hg HCO3 (21-28) mmol/L ABG pH (7.35-7.45) ABG Total CO2 (22-28) mmol.L ABG O2 Saturation (95-98) % ABG O2 Content (15-23) ML/dl ABG Base Excess (-2.0-3.0) mmol/L ABG Hemoglobin (11.7-17.4) g/dL ABG Carboxyhemoglobin (0.5-1.5) % POC ABG HHb (Measured) (0-5) % ABG Methemoglobin (0.0-3.0) % ABG O2 Capacity (16-24) mL/dl Hgb O2 Saturation (95.0-98.0) % FiO2 % Sodium (132-148) mmol/L Potassium (3.6-5.0) mmol/L Chloride (98-107) mmol/L Carbon Dioxide (21-33) mmol/L Anion Gap (10-20) BUN (7-21) mg/dL Creatinine (0.8-1.5) mg/dl Est GFR ( Amer) Est GFR (Non-Af Amer) POC Glucose (mg/dL) 239 H 238 H 232 H (65-110) mg/dL Random Glucose (70-110) mg/dL Serum Osmolality (272-300) mosm/kg Calcium (8.4-10.5) mg/dL Total Bilirubin (0.2-1.3) mg/dL AST (17-59) U/L ALT (7-56) U/L Alkaline Phosphatase (38-126) U/L Total Protein (5.8-8.3) g/dL Albumin (3.0-4.8) g/dL Globulin gm/dL Albumin/Globulin Ratio (1.1-1.8) 03/19/18 03/19/18 03/19/18 Range/Units 08:05 07:44 06:59 WBC (4.5-11.0) 10^3/ul RBC (3.5-6.1) 10^6/uL Hgb (14.0-18.0) g/dL Hct (42.0-52.0) % MCV (80.0-105.0) fl MCH (25.0-35.0) pg MCHC (31.0-37.0) g/dl RDW (11.5-14.5) % Plt Count (120.0-450.0) 10^3/uL MPV (7.0-11.0) fl PT 22.7 H (9.4-12.5) SECONDS INR 1.95 H (0.93-1.08) pCO2 (35-45) mm/Hg pO2 (80-100) mm/Hg HCO3 (21-28) mmol/L ABG pH (7.35-7.45) ABG Total CO2 (22-28) mmol.L ABG O2 Saturation (95-98) % ABG O2 Content (15-23) ML/dl ABG Base Excess (-2.0-3.0) mmol/L ABG Hemoglobin (11.7-17.4) g/dL ABG Carboxyhemoglobin (0.5-1.5) % POC ABG HHb (Measured) (0-5) % ABG Methemoglobin (0.0-3.0) % ABG O2 Capacity (16-24) mL/dl Hgb O2 Saturation (95.0-98.0) % FiO2 % Sodium (132-148) mmol/L Potassium (3.6-5.0) mmol/L Chloride (98-107) mmol/L Carbon Dioxide (21-33) mmol/L Anion Gap (10-20) BUN (7-21) mg/dL Creatinine (0.8-1.5) mg/dl Est GFR ( Amer) Est GFR (Non-Af Amer) POC Glucose (mg/dL) 247 H (65-110) mg/dL Random Glucose (70-110) mg/dL Serum Osmolality 332 H (272-300) mosm/kg Calcium (8.4-10.5) mg/dL Total Bilirubin (0.2-1.3) mg/dL AST (17-59) U/L ALT (7-56) U/L Alkaline Phosphatase (38-126) U/L Total Protein (5.8-8.3) g/dL Albumin (3.0-4.8) g/dL Globulin gm/dL Albumin/Globulin Ratio (1.1-1.8) 03/19/18 03/19/18 03/19/18 Range/Units 05:47 05:40 05:40 WBC 4.2 L (4.5-11.0) 10^3/ul RBC 4.10 (3.5-6.1) 10^6/uL Hgb 11.9 L (14.0-18.0) g/dL Hct 37.0 L (42.0-52.0) % MCV 90.2 (80.0-105.0) fl MCH 29.0 (25.0-35.0) pg MCHC 32.2 (31.0-37.0) g/dl RDW 18.1 H (11.5-14.5) % Plt Count 50 L (120.0-450.0) 10^3/uL MPV 10.1 (7.0-11.0) fl PT (9.4-12.5) SECONDS INR (0.93-1.08) pCO2 (35-45) mm/Hg pO2 (80-100) mm/Hg HCO3 (21-28) mmol/L ABG pH (7.35-7.45) ABG Total CO2 (22-28) mmol.L ABG O2 Saturation (95-98) % ABG O2 Content (15-23) ML/dl ABG Base Excess (-2.0-3.0) mmol/L ABG Hemoglobin (11.7-17.4) g/dL ABG Carboxyhemoglobin (0.5-1.5) % POC ABG HHb (Measured) (0-5) % ABG Methemoglobin (0.0-3.0) % ABG O2 Capacity (16-24) mL/dl Hgb O2 Saturation (95.0-98.0) % FiO2 % Sodium 157 H* (132-148) mmol/L Potassium 3.6 (3.6-5.0) mmol/L Chloride 123 H (98-107) mmol/L Carbon Dioxide 21 (21-33) mmol/L Anion Gap 16 (10-20) BUN 33 H (7-21) mg/dL Creatinine 0.7 L (0.8-1.5) mg/dl Est GFR ( Amer) > 60 Est GFR (Non-Af Amer) > 60 POC Glucose (mg/dL) 227 H (65-110) mg/dL Random Glucose 253 H (70-110) mg/dL Serum Osmolality (272-300) mosm/kg Calcium 9.0 (8.4-10.5) mg/dL Total Bilirubin 10.8 H (0.2-1.3) mg/dL AST 73 H D (17-59) U/L ALT 44 (7-56) U/L Alkaline Phosphatase 157 H D (38-126) U/L Total Protein 6.2 (5.8-8.3) g/dL Albumin 2.5 L (3.0-4.8) g/dL Globulin 3.7 gm/dL Albumin/Globulin Ratio 0.7 L (1.1-1.8) 03/19/18 03/19/18 03/19/18 Range/Units 05:20 04:12 03:24 WBC (4.5-11.0) 10^3/ul RBC (3.5-6.1) 10^6/uL Hgb (14.0-18.0) g/dL Hct (42.0-52.0) % MCV (80.0-105.0) fl MCH (25.0-35.0) pg MCHC (31.0-37.0) g/dl RDW (11.5-14.5) % Plt Count (120.0-450.0) 10^3/uL MPV (7.0-11.0) fl PT (9.4-12.5) SECONDS INR (0.93-1.08) pCO2 (35-45) mm/Hg pO2 (80-100) mm/Hg HCO3 (21-28) mmol/L ABG pH (7.35-7.45) ABG Total CO2 (22-28) mmol.L ABG O2 Saturation (95-98) % ABG O2 Content (15-23) ML/dl ABG Base Excess (-2.0-3.0) mmol/L ABG Hemoglobin (11.7-17.4) g/dL ABG Carboxyhemoglobin (0.5-1.5) % POC ABG HHb (Measured) (0-5) % ABG Methemoglobin (0.0-3.0) % ABG O2 Capacity (16-24) mL/dl Hgb O2 Saturation (95.0-98.0) % FiO2 % Sodium (132-148) mmol/L Potassium (3.6-5.0) mmol/L Chloride (98-107) mmol/L Carbon Dioxide (21-33) mmol/L Anion Gap (10-20) BUN (7-21) mg/dL Creatinine (0.8-1.5) mg/dl Est GFR ( Amer) Est GFR (Non-Af Amer) POC Glucose (mg/dL) 224 H 219 H 207 H (65-110) mg/dL Random Glucose (70-110) mg/dL Serum Osmolality (272-300) mosm/kg Calcium (8.4-10.5) mg/dL Total Bilirubin (0.2-1.3) mg/dL AST (17-59) U/L ALT (7-56) U/L Alkaline Phosphatase (38-126) U/L Total Protein (5.8-8.3) g/dL Albumin (3.0-4.8) g/dL Globulin gm/dL Albumin/Globulin Ratio (1.1-1.8) 03/19/18 03/18/18 03/18/18 Range/Units 01:16 23:13 22:09 WBC (4.5-11.0) 10^3/ul RBC (3.5-6.1) 10^6/uL Hgb (14.0-18.0) g/dL Hct (42.0-52.0) % MCV (80.0-105.0) fl MCH (25.0-35.0) pg MCHC (31.0-37.0) g/dl RDW (11.5-14.5) % Plt Count (120.0-450.0) 10^3/uL MPV (7.0-11.0) fl PT (9.4-12.5) SECONDS INR (0.93-1.08) pCO2 (35-45) mm/Hg pO2 (80-100) mm/Hg HCO3 (21-28) mmol/L ABG pH (7.35-7.45) ABG Total CO2 (22-28) mmol.L ABG O2 Saturation (95-98) % ABG O2 Content (15-23) ML/dl ABG Base Excess (-2.0-3.0) mmol/L ABG Hemoglobin (11.7-17.4) g/dL ABG Carboxyhemoglobin (0.5-1.5) % POC ABG HHb (Measured) (0-5) % ABG Methemoglobin (0.0-3.0) % ABG O2 Capacity (16-24) mL/dl Hgb O2 Saturation (95.0-98.0) % FiO2 % Sodium (132-148) mmol/L Potassium (3.6-5.0) mmol/L Chloride (98-107) mmol/L Carbon Dioxide (21-33) mmol/L Anion Gap (10-20) BUN (7-21) mg/dL Creatinine (0.8-1.5) mg/dl Est GFR ( Amer) Est GFR (Non-Af Amer) POC Glucose (mg/dL) 221 H 228 H 221 H (65-110) mg/dL Random Glucose (70-110) mg/dL Serum Osmolality (272-300) mosm/kg Calcium (8.4-10.5) mg/dL Total Bilirubin (0.2-1.3) mg/dL AST (17-59) U/L ALT (7-56) U/L Alkaline Phosphatase (38-126) U/L Total Protein (5.8-8.3) g/dL Albumin (3.0-4.8) g/dL Globulin gm/dL Albumin/Globulin Ratio (1.1-1.8) 03/18/18 03/18/18 03/18/18 Range/Units 20:50 19:56 19:14 WBC (4.5-11.0) 10^3/ul RBC (3.5-6.1) 10^6/uL Hgb (14.0-18.0) g/dL Hct (42.0-52.0) % MCV (80.0-105.0) fl MCH (25.0-35.0) pg MCHC (31.0-37.0) g/dl RDW (11.5-14.5) % Plt Count (120.0-450.0) 10^3/uL MPV (7.0-11.0) fl PT (9.4-12.5) SECONDS INR (0.93-1.08) pCO2 (35-45) mm/Hg pO2 (80-100) mm/Hg HCO3 (21-28) mmol/L ABG pH (7.35-7.45) ABG Total CO2 (22-28) mmol.L ABG O2 Saturation (95-98) % ABG O2 Content (15-23) ML/dl ABG Base Excess (-2.0-3.0) mmol/L ABG Hemoglobin (11.7-17.4) g/dL ABG Carboxyhemoglobin (0.5-1.5) % POC ABG HHb (Measured) (0-5) % ABG Methemoglobin (0.0-3.0) % ABG O2 Capacity (16-24) mL/dl Hgb O2 Saturation (95.0-98.0) % FiO2 % Sodium (132-148) mmol/L Potassium (3.6-5.0) mmol/L Chloride (98-107) mmol/L Carbon Dioxide (21-33) mmol/L Anion Gap (10-20) BUN (7-21) mg/dL Creatinine (0.8-1.5) mg/dl Est GFR ( Amer) Est GFR (Non-Af Amer) POC Glucose (mg/dL) 233 H 248 H 261 H (65-110) mg/dL Random Glucose (70-110) mg/dL Serum Osmolality (272-300) mosm/kg Calcium (8.4-10.5) mg/dL Total Bilirubin (0.2-1.3) mg/dL AST (17-59) U/L ALT (7-56) U/L Alkaline Phosphatase (38-126) U/L Total Protein (5.8-8.3) g/dL Albumin (3.0-4.8) g/dL Globulin gm/dL Albumin/Globulin Ratio (1.1-1.8) 03/18/18 03/18/18 03/18/18 Range/Units 18:17 17:17 16:14 WBC (4.5-11.0) 10^3/ul RBC (3.5-6.1) 10^6/uL Hgb (14.0-18.0) g/dL Hct (42.0-52.0) % MCV (80.0-105.0) fl MCH (25.0-35.0) pg MCHC (31.0-37.0) g/dl RDW (11.5-14.5) % Plt Count (120.0-450.0) 10^3/uL MPV (7.0-11.0) fl PT (9.4-12.5) SECONDS INR (0.93-1.08) pCO2 (35-45) mm/Hg pO2 (80-100) mm/Hg HCO3 (21-28) mmol/L ABG pH (7.35-7.45) ABG Total CO2 (22-28) mmol.L ABG O2 Saturation (95-98) % ABG O2 Content (15-23) ML/dl ABG Base Excess (-2.0-3.0) mmol/L ABG Hemoglobin (11.7-17.4) g/dL ABG Carboxyhemoglobin (0.5-1.5) % POC ABG HHb (Measured) (0-5) % ABG Methemoglobin (0.0-3.0) % ABG O2 Capacity (16-24) mL/dl Hgb O2 Saturation (95.0-98.0) % FiO2 % Sodium (132-148) mmol/L Potassium (3.6-5.0) mmol/L Chloride (98-107) mmol/L Carbon Dioxide (21-33) mmol/L Anion Gap (10-20) BUN (7-21) mg/dL Creatinine (0.8-1.5) mg/dl Est GFR ( Amer) Est GFR (Non-Af Amer) POC Glucose (mg/dL) 247 H 237 H 230 H (65-110) mg/dL Random Glucose (70-110) mg/dL Serum Osmolality (272-300) mosm/kg Calcium (8.4-10.5) mg/dL Total Bilirubin (0.2-1.3) mg/dL AST (17-59) U/L ALT (7-56) U/L Alkaline Phosphatase (38-126) U/L Total Protein (5.8-8.3) g/dL Albumin (3.0-4.8) g/dL Globulin gm/dL Albumin/Globulin Ratio (1.1-1.8) 03/18/18 03/18/18 03/18/18 Range/Units 14:59 14:28 13:40 WBC (4.5-11.0) 10^3/ul RBC (3.5-6.1) 10^6/uL Hgb (14.0-18.0) g/dL Hct (42.0-52.0) % MCV (80.0-105.0) fl MCH (25.0-35.0) pg MCHC (31.0-37.0) g/dl RDW (11.5-14.5) % Plt Count (120.0-450.0) 10^3/uL MPV (7.0-11.0) fl PT (9.4-12.5) SECONDS INR (0.93-1.08) pCO2 32 L (35-45) mm/Hg pO2 145.0 H (80-100) mm/Hg HCO3 22.8 (21-28) mmol/L ABG pH 7.46 H (7.35-7.45) ABG Total CO2 23.8 (22-28) mmol.L ABG O2 Saturation 100.3 H (95-98) % ABG O2 Content 15.7 (15-23) ML/dl ABG Base Excess -0.5 (-2.0-3.0) mmol/L ABG Hemoglobin 11.3 L (11.7-17.4) g/dL ABG Carboxyhemoglobin 2.2 H (0.5-1.5) % POC ABG HHb (Measured) -0.3 L (0-5) % ABG Methemoglobin 1.0 (0.0-3.0) % ABG O2 Capacity 15.7 L (16-24) mL/dl Hgb O2 Saturation 97.1 (95.0-98.0) % FiO2 40.0 % Sodium (132-148) mmol/L Potassium (3.6-5.0) mmol/L Chloride (98-107) mmol/L Carbon Dioxide (21-33) mmol/L Anion Gap (10-20) BUN (7-21) mg/dL Creatinine (0.8-1.5) mg/dl Est GFR ( Amer) Est GFR (Non-Af Amer) POC Glucose (mg/dL) 321 H 279 H (65-110) mg/dL Random Glucose (70-110) mg/dL Serum Osmolality (272-300) mosm/kg Calcium (8.4-10.5) mg/dL Total Bilirubin (0.2-1.3) mg/dL AST (17-59) U/L ALT (7-56) U/L Alkaline Phosphatase (38-126) U/L Total Protein (5.8-8.3) g/dL Albumin (3.0-4.8) g/dL Globulin gm/dL Albumin/Globulin Ratio (1.1-1.8) 03/18/18 Range/Units 12:59 WBC (4.5-11.0) 10^3/ul RBC (3.5-6.1) 10^6/uL Hgb (14.0-18.0) g/dL Hct (42.0-52.0) % MCV (80.0-105.0) fl MCH (25.0-35.0) pg MCHC (31.0-37.0) g/dl RDW (11.5-14.5) % Plt Count (120.0-450.0) 10^3/uL MPV (7.0-11.0) fl PT (9.4-12.5) SECONDS INR (0.93-1.08) pCO2 (35-45) mm/Hg pO2 (80-100) mm/Hg HCO3 (21-28) mmol/L ABG pH (7.35-7.45) ABG Total CO2 (22-28) mmol.L ABG O2 Saturation (95-98) % ABG O2 Content (15-23) ML/dl ABG Base Excess (-2.0-3.0) mmol/L ABG Hemoglobin (11.7-17.4) g/dL ABG Carboxyhemoglobin (0.5-1.5) % POC ABG HHb (Measured) (0-5) % ABG Methemoglobin (0.0-3.0) % ABG O2 Capacity (16-24) mL/dl Hgb O2 Saturation (95.0-98.0) % FiO2 % Sodium (132-148) mmol/L Potassium (3.6-5.0) mmol/L Chloride (98-107) mmol/L Carbon Dioxide (21-33) mmol/L Anion Gap (10-20) BUN (7-21) mg/dL Creatinine (0.8-1.5) mg/dl Est GFR ( Amer) Est GFR (Non-Af Amer) POC Glucose (mg/dL) 236 H (65-110) mg/dL Random Glucose (70-110) mg/dL Serum Osmolality (272-300) mosm/kg Calcium (8.4-10.5) mg/dL Total Bilirubin (0.2-1.3) mg/dL AST (17-59) U/L ALT (7-56) U/L Alkaline Phosphatase (38-126) U/L Total Protein (5.8-8.3) g/dL Albumin (3.0-4.8) g/dL Globulin gm/dL Albumin/Globulin Ratio (1.1-1.8) Laboratory Results - last 24 hr 03/18/18 03/18/18 03/18/18 12:59 13:40 14:28 WBC RBC Hgb Hct MCV MCH MCHC RDW Plt Count MPV PT INR pCO2 32 L pO2 145.0 H HCO3 22.8 ABG pH 7.46 H ABG Total CO2 23.8 ABG O2 Saturation 100.3 H ABG O2 Content 15.7 ABG Base Excess -0.5 ABG Hemoglobin 11.3 L ABG Carboxyhemoglobin 2.2 H POC ABG HHb (Measured) -0.3 L ABG Methemoglobin 1.0 ABG O2 Capacity 15.7 L Hgb O2 Saturation 97.1 FiO2 40.0 Sodium Potassium Chloride Carbon Dioxide Anion Gap BUN Creatinine Est GFR ( Amer) Est GFR (Non-Af Amer) POC Glucose (mg/dL) 236 H 279 H Random Glucose Serum Osmolality Calcium Total Bilirubin AST ALT Alkaline Phosphatase Total Protein Albumin Globulin Albumin/Globulin Ratio 03/18/18 03/18/18 03/18/18 14:59 16:14 17:17 WBC RBC Hgb Hct MCV MCH MCHC RDW Plt Count MPV PT INR pCO2 pO2 HCO3 ABG pH ABG Total CO2 ABG O2 Saturation ABG O2 Content ABG Base Excess ABG Hemoglobin ABG Carboxyhemoglobin POC ABG HHb (Measured) ABG Methemoglobin ABG O2 Capacity Hgb O2 Saturation FiO2 Sodium Potassium Chloride Carbon Dioxide Anion Gap BUN Creatinine Est GFR ( Amer) Est GFR (Non-Af Amer) POC Glucose (mg/dL) 321 H 230 H 237 H Random Glucose Serum Osmolality Calcium Total Bilirubin AST ALT Alkaline Phosphatase Total Protein Albumin Globulin Albumin/Globulin Ratio 03/18/18 03/18/18 03/18/18 18:17 19:14 19:56 WBC RBC Hgb Hct MCV MCH MCHC RDW Plt Count MPV PT INR pCO2 pO2 HCO3 ABG pH ABG Total CO2 ABG O2 Saturation ABG O2 Content ABG Base Excess ABG Hemoglobin ABG Carboxyhemoglobin POC ABG HHb (Measured) ABG Methemoglobin ABG O2 Capacity Hgb O2 Saturation FiO2 Sodium Potassium Chloride Carbon Dioxide Anion Gap BUN Creatinine Est GFR ( Amer) Est GFR (Non-Af Amer) POC Glucose (mg/dL) 247 H 261 H 248 H Random Glucose Serum Osmolality Calcium Total Bilirubin AST ALT Alkaline Phosphatase Total Protein Albumin Globulin Albumin/Globulin Ratio 03/18/18 03/18/18 03/18/18 20:50 22:09 23:13 WBC RBC Hgb Hct MCV MCH MCHC RDW Plt Count MPV PT INR pCO2 pO2 HCO3 ABG pH ABG Total CO2 ABG O2 Saturation ABG O2 Content ABG Base Excess ABG Hemoglobin ABG Carboxyhemoglobin POC ABG HHb (Measured) ABG Methemoglobin ABG O2 Capacity Hgb O2 Saturation FiO2 Sodium Potassium Chloride Carbon Dioxide Anion Gap BUN Creatinine Est GFR ( Amer) Est GFR (Non-Af Amer) POC Glucose (mg/dL) 233 H 221 H 228 H Random Glucose Serum Osmolality Calcium Total Bilirubin AST ALT Alkaline Phosphatase Total Protein Albumin Globulin Albumin/Globulin Ratio 03/19/18 03/19/18 03/19/18 01:16 03:24 04:12 WBC RBC Hgb Hct MCV MCH MCHC RDW Plt Count MPV PT INR pCO2 pO2 HCO3 ABG pH ABG Total CO2 ABG O2 Saturation ABG O2 Content ABG Base Excess ABG Hemoglobin ABG Carboxyhemoglobin POC ABG HHb (Measured) ABG Methemoglobin ABG O2 Capacity Hgb O2 Saturation FiO2 Sodium Potassium Chloride Carbon Dioxide Anion Gap BUN Creatinine Est GFR ( Amer) Est GFR (Non-Af Amer) POC Glucose (mg/dL) 221 H 207 H 219 H Random Glucose Serum Osmolality Calcium Total Bilirubin AST ALT Alkaline Phosphatase Total Protein Albumin Globulin Albumin/Globulin Ratio 03/19/18 03/19/18 03/19/18 05:20 05:40 05:40 WBC 4.2 L RBC 4.10 Hgb 11.9 L Hct 37.0 L MCV 90.2 MCH 29.0 MCHC 32.2 RDW 18.1 H Plt Count 50 L MPV 10.1 PT INR pCO2 pO2 HCO3 ABG pH ABG Total CO2 ABG O2 Saturation ABG O2 Content ABG Base Excess ABG Hemoglobin ABG Carboxyhemoglobin POC ABG HHb (Measured) ABG Methemoglobin ABG O2 Capacity Hgb O2 Saturation FiO2 Sodium 157 H* Potassium 3.6 Chloride 123 H Carbon Dioxide 21 Anion Gap 16 BUN 33 H Creatinine 0.7 L Est GFR ( Amer) > 60 Est GFR (Non-Af Amer) > 60 POC Glucose (mg/dL) 224 H Random Glucose 253 H Serum Osmolality Calcium 9.0 Total Bilirubin 10.8 H AST 73 H D ALT 44 Alkaline Phosphatase 157 H D Total Protein 6.2 Albumin 2.5 L Globulin 3.7 Albumin/Globulin Ratio 0.7 L 03/19/18 03/19/18 03/19/18 05:47 06:59 07:44 WBC RBC Hgb Hct MCV MCH MCHC RDW Plt Count MPV PT INR pCO2 pO2 HCO3 ABG pH ABG Total CO2 ABG O2 Saturation ABG O2 Content ABG Base Excess ABG Hemoglobin ABG Carboxyhemoglobin POC ABG HHb (Measured) ABG Methemoglobin ABG O2 Capacity Hgb O2 Saturation FiO2 Sodium Potassium Chloride Carbon Dioxide Anion Gap BUN Creatinine Est GFR ( Amer) Est GFR (Non-Af Amer) POC Glucose (mg/dL) 227 H 247 H Random Glucose Serum Osmolality 332 H Calcium Total Bilirubin AST ALT Alkaline Phosphatase Total Protein Albumin Globulin Albumin/Globulin Ratio 03/19/18 03/19/18 03/19/18 08:05 08:08 10:26 WBC RBC Hgb Hct MCV MCH MCHC RDW Plt Count MPV PT 22.7 H INR 1.95 H pCO2 pO2 HCO3 ABG pH ABG Total CO2 ABG O2 Saturation ABG O2 Content ABG Base Excess ABG Hemoglobin ABG Carboxyhemoglobin POC ABG HHb (Measured) ABG Methemoglobin ABG O2 Capacity Hgb O2 Saturation FiO2 Sodium Potassium Chloride Carbon Dioxide Anion Gap BUN Creatinine Est GFR ( Amer) Est GFR (Non-Af Amer) POC Glucose (mg/dL) 232 H 238 H Random Glucose Serum Osmolality Calcium Total Bilirubin AST ALT Alkaline Phosphatase Total Protein Albumin Globulin Albumin/Globulin Ratio 03/19/18 12:30 WBC RBC Hgb Hct MCV MCH MCHC RDW Plt Count MPV PT INR pCO2 pO2 HCO3 ABG pH ABG Total CO2 ABG O2 Saturation ABG O2 Content ABG Base Excess ABG Hemoglobin ABG Carboxyhemoglobin POC ABG HHb (Measured) ABG Methemoglobin ABG O2 Capacity Hgb O2 Saturation FiO2 Sodium Potassium Chloride Carbon Dioxide Anion Gap BUN Creatinine Est GFR ( Amer) Est GFR (Non-Af Amer) POC Glucose (mg/dL) 239 H Random Glucose Serum Osmolality Calcium Total Bilirubin AST ALT Alkaline Phosphatase Total Protein Albumin Globulin Albumin/Globulin Ratio Fingerstick Blood Sugar Results: 224 Critical Care Progress Note - Nutrition Nutrition: Nutrition Category Date Time Status NPO Diet [DIET] Diets 03/15/18 Breakfast Ordered Assessment/Plan - Assessment and Plan (Free Text) Assessment: 62 year old male with a PMH of end stage liver disease, Hep C, Cirrhosis, DM, non compliance, admitted with large L IPH/CVA. Plan: Neurologic Neurosurgery consulted, no surgical intervention, poor prognosis Neurology following, recs appreciated Off mannitol and 3% saline Cont cohen-precautions Cont keppra Known previous hepatic encephalopathy, cont on lactulose and rifaximin Palliative following Hold anticoagulation in setting of hemorrhagic CVA Cardiovascular Maintain MAP>65 HD stable Pulmnologic Intubated for airway protection, tolerating pressure support trial at this time may transition to T piece Off propofol ENT was consulted for trach Maintain sat > 92% Gastrointestinal NPO Continue sucralfate No bowel movement in 2 days despite being on lactulose, will perform fleet enema GI consulted for PEG tube placement Renal Continues making appropriate urine Infectious disease Having fevers, likely central Cont cooling blanket and PRN ofirmex Monitoring Endocrinologic Continue levothyroxine 75mcg Hx of DM, cont ISS and accuchecks Cont insulin gtt GI/DVT ppx: Protonix, 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) Dispo: poor prognosis, has been discussed with family at length and they are currently discussing with latter day leaders. For now wants all measures. Patient was seen and examined and case was discussed at length with attending physician - Date & Time Date: 03/19/18 Time: 07:00 <Guillermo Sanchez - Last Filed: 03/19/18 15:14> CCU Objective - Vital Signs / Intake & Output Vital Signs (Last 4 hours): Vital Signs Temp Pulse Resp BP Pulse Ox 03/19/18 14:00 96 H 142/71 100 03/19/18 13:00 99 H 142/75 100 03/19/18 12:00 98.1 F 99 H 14 140/71 99 Intake and Output (Last 8hrs): Intake & Output 03/19/18 03/19/18 03/19/18 06:59 14:59 22:59 Intake Total 282 321 Output Total 400 800 Balance -118 -479 Intake: IV 282 111 Insulin drip 282 keppra 100 Other 210 Output: Gastric Amount 500 Stomach 500 Urine 400 300 Urethral (Serna) 400 300 - Medications Active Medications: Active Medications Generic Name Dose Route Start Last Admin Trade Name Freq PRN Reason Stop Dose Admin Propofol 1,000 mg in 100 mls @ 1.932 mls/hr 03/15/18 08:00 03/16/18 09:30 Diprivan IV 0 mcg/kg/min .Q24H PRN 0 mls/hr TITRATE PER MD ORDER Titration Protocol 5 MCG/KG/MIN Sodium Chloride 500 mls @ 30 mls/hr 03/15/18 09:45 03/15/18 10:50 Hypertonic Saline 3% IV 30 mls/hr .[id number] KAVIN Administration Levetiracetam 500 mg in 100 mls @ 400 mls/hr 03/15/18 12:00 03/19/18 10:29 Keppra 500mg Ivpb IV Not Given Q12 KAVIN Insulin Human Regular 100 100 mls @ 2 mls/hr 03/17/18 07:59 03/19/18 14:10 units/ Sodium Chloride IV 3 units/hr .Q24H PRN 3 mls/hr TITRATE PER MD ORDER Titration Protocol 2 UNITS/HR Insulin Human Lispro 0 units 03/13/18 11:30 03/17/18 08:59 Humalog High SC Not Given ACHS [facility] Protocol Insulin Lispro Protam/Lispro Human 15 units 03/14/18 16:30 03/17/18 08:59 Humalog Mix 75/25 SC Not Given BIDAC [facility] Labetalol HCl 10 mg 03/15/18 03:08 Trandate IV Q4 PRN Blood Pressure 220/110 & above Lactulose 30 gm 03/13/18 10:00 03/19/18 14:03 Enulose PO 30 gm TID KAVIN Administration Levothyroxine Sodium 75 mcg 03/17/18 09:51 03/19/18 05:40 Synthroid PO 75 mcg 0600 KAVIN Administration Ondansetron HCl 4 mg 03/14/18 23:32 03/15/18 00:14 Zofran Inj IVP 4 mg Q6H PRN Administration Nausea/Vomiting Pantoprazole Sodium 40 mg 03/18/18 10:00 03/19/18 10:29 Protonix Inj IVP Not Given DAILY [facility] Spironolactone 100 mg 03/12/18 10:00 03/19/18 10:28 Aldactone PO Not Given DAILY [facility] Sucralfate 1 gm 03/14/18 16:00 03/19/18 05:40 Carafate Tab PO 1 gm 0600,1600 [facility] Administration - Patient Studies Lab Studies: Lab Studies 03/19/18 03/19/18 03/19/18 Range/Units 14:23 14:07 13:13 WBC (4.5-11.0) 10^3/ul RBC (3.5-6.1) 10^6/uL Hgb (14.0-18.0) g/dL Hct (42.0-52.0) % MCV (80.0-105.0) fl MCH (25.0-35.0) pg MCHC (31.0-37.0) g/dl RDW (11.5-14.5) % Plt Count (120.0-450.0) 10^3/uL MPV (7.0-11.0) fl PT (9.4-12.5) SECONDS INR (0.93-1.08) Sodium (132-148) mmol/L Potassium (3.6-5.0) mmol/L Chloride (98-107) mmol/L Carbon Dioxide (21-33) mmol/L Anion Gap (10-20) BUN (7-21) mg/dL Creatinine (0.8-1.5) mg/dl Est GFR ( Amer) Est GFR (Non-Af Amer) POC Glucose (mg/dL) 244 H 275 H 253 H (65-110) mg/dL Random Glucose (70-110) mg/dL Serum Osmolality (272-300) mosm/kg Calcium (8.4-10.5) mg/dL Total Bilirubin (0.2-1.3) mg/dL AST (17-59) U/L ALT (7-56) U/L Alkaline Phosphatase (38-126) U/L Total Protein (5.8-8.3) g/dL Albumin (3.0-4.8) g/dL Globulin gm/dL Albumin/Globulin Ratio (1.1-1.8) 18 03/19/18 03/19/18 Range/Units 12:30 10:26 08:08 WBC (4.5-11.0) 10^3/ul RBC (3.5-6.1) 10^6/uL Hgb (14.0-18.0) g/dL Hct (42.0-52.0) % MCV (80.0-105.0) fl MCH (25.0-35.0) pg MCHC (31.0-37.0) g/dl RDW (11.5-14.5) % Plt Count (120.0-450.0) 10^3/uL MPV (7.0-11.0) fl PT (9.4-12.5) SECONDS INR (0.93-1.08) Sodium (132-148) mmol/L Potassium (3.6-5.0) mmol/L Chloride (98-107) mmol/L Carbon Dioxide (21-33) mmol/L Anion Gap (10-20) BUN (7-21) mg/dL Creatinine (0.8-1.5) mg/dl Est GFR ( Amer) Est GFR (Non-Af Amer) POC Glucose (mg/dL) 239 H 238 H 232 H (65-110) mg/dL Random Glucose (70-110) mg/dL Serum Osmolality (272-300) mosm/kg Calcium (8.4-10.5) mg/dL Total Bilirubin (0.2-1.3) mg/dL AST (17-59) U/L ALT (7-56) U/L Alkaline Phosphatase (38-126) U/L Total Protein (5.8-8.3) g/dL Albumin (3.0-4.8) g/dL Globulin gm/dL Albumin/Globulin Ratio (1.1-1.8) 03/19/18 03/19/18 03/19/18 Range/Units 08:05 07:44 06:59 WBC (4.5-11.0) 10^3/ul RBC (3.5-6.1) 10^6/uL Hgb (14.0-18.0) g/dL Hct (42.0-52.0) % MCV (80.0-105.0) fl MCH (25.0-35.0) pg MCHC (31.0-37.0) g/dl RDW (11.5-14.5) % Plt Count (120.0-450.0) 10^3/uL MPV (7.0-11.0) fl PT 22.7 H (9.4-12.5) SECONDS INR 1.95 H (0.93-1.08) Sodium (132-148) mmol/L Potassium (3.6-5.0) mmol/L Chloride (98-107) mmol/L Carbon Dioxide (21-33) mmol/L Anion Gap (10-20) BUN (7-21) mg/dL Creatinine (0.8-1.5) mg/dl Est GFR ( Amer) Est GFR (Non-Af Amer) POC Glucose (mg/dL) 247 H (65-110) mg/dL Random Glucose (70-110) mg/dL Serum Osmolality 332 H (272-300) mosm/kg Calcium (8.4-10.5) mg/dL Total Bilirubin (0.2-1.3) mg/dL AST (17-59) U/L ALT (7-56) U/L Alkaline Phosphatase (38-126) U/L Total Protein (5.8-8.3) g/dL Albumin (3.0-4.8) g/dL Globulin gm/dL Albumin/Globulin Ratio (1.1-1.8) 03/19/18 03/19/18 03/19/18 Range/Units 05:47 05:40 05:40 WBC 4.2 L (4.5-11.0) 10^3/ul RBC 4.10 (3.5-6.1) 10^6/uL Hgb 11.9 L (14.0-18.0) g/dL Hct 37.0 L (42.0-52.0) % MCV 90.2 (80.0-105.0) fl MCH 29.0 (25.0-35.0) pg MCHC 32.2 (31.0-37.0) g/dl RDW 18.1 H (11.5-14.5) % Plt Count 50 L (120.0-450.0) 10^3/uL MPV 10.1 (7.0-11.0) fl PT (9.4-12.5) SECONDS INR (0.93-1.08) Sodium 157 H* (132-148) mmol/L Potassium 3.6 (3.6-5.0) mmol/L Chloride 123 H (98-107) mmol/L Carbon Dioxide 21 (21-33) mmol/L Anion Gap 16 (10-20) BUN 33 H (7-21) mg/dL Creatinine 0.7 L (0.8-1.5) mg/dl Est GFR ( Amer) > 60 Est GFR (Non-Af Amer) > 60 POC Glucose (mg/dL) 227 H (65-110) mg/dL Random Glucose 253 H (70-110) mg/dL Serum Osmolality (272-300) mosm/kg Calcium 9.0 (8.4-10.5) mg/dL Total Bilirubin 10.8 H (0.2-1.3) mg/dL AST 73 H D (17-59) U/L ALT 44 (7-56) U/L Alkaline Phosphatase 157 H D (38-126) U/L Total Protein 6.2 (5.8-8.3) g/dL Albumin 2.5 L (3.0-4.8) g/dL Globulin 3.7 gm/dL Albumin/Globulin Ratio 0.7 L (1.1-1.8) 03/19/18 03/19/18 03/19/18 Range/Units 05:20 04:12 03:24 WBC (4.5-11.0) 10^3/ul RBC (3.5-6.1) 10^6/uL Hgb (14.0-18.0) g/dL Hct (42.0-52.0) % MCV (80.0-105.0) fl MCH (25.0-35.0) pg MCHC (31.0-37.0) g/dl RDW (11.5-14.5) % Plt Count (120.0-450.0) 10^3/uL MPV (7.0-11.0) fl PT (9.4-12.5) SECONDS INR (0.93-1.08) Sodium (132-148) mmol/L Potassium (3.6-5.0) mmol/L Chloride (98-107) mmol/L Carbon Dioxide (21-33) mmol/L Anion Gap (10-20) BUN (7-21) mg/dL Creatinine (0.8-1.5) mg/dl Est GFR ( Amer) Est GFR (Non-Af Amer) POC Glucose (mg/dL) 224 H 219 H 207 H (65-110) mg/dL Random Glucose (70-110) mg/dL Serum Osmolality (272-300) mosm/kg Calcium (8.4-10.5) mg/dL Total Bilirubin (0.2-1.3) mg/dL AST (17-59) U/L ALT (7-56) U/L Alkaline Phosphatase (38-126) U/L Total Protein (5.8-8.3) g/dL Albumin (3.0-4.8) g/dL Globulin gm/dL Albumin/Globulin Ratio (1.1-1.8) 03/19/18 03/18/18 03/18/18 Range/Units 01:16 23:13 22:09 WBC (4.5-11.0) 10^3/ul RBC (3.5-6.1) 10^6/uL Hgb (14.0-18.0) g/dL Hct (42.0-52.0) % MCV (80.0-105.0) fl MCH (25.0-35.0) pg MCHC (31.0-37.0) g/dl RDW (11.5-14.5) % Plt Count (120.0-450.0) 10^3/uL MPV (7.0-11.0) fl PT (9.4-12.5) SECONDS INR (0.93-1.08) Sodium (132-148) mmol/L Potassium (3.6-5.0) mmol/L Chloride (98-107) mmol/L Carbon Dioxide (21-33) mmol/L Anion Gap (10-20) BUN (7-21) mg/dL Creatinine (0.8-1.5) mg/dl Est GFR ( Amer) Est GFR (Non-Af Amer) POC Glucose (mg/dL) 221 H 228 H 221 H (65-110) mg/dL Random Glucose (70-110) mg/dL Serum Osmolality (272-300) mosm/kg Calcium (8.4-10.5) mg/dL Total Bilirubin (0.2-1.3) mg/dL AST (17-59) U/L ALT (7-56) U/L Alkaline Phosphatase (38-126) U/L Total Protein (5.8-8.3) g/dL Albumin (3.0-4.8) g/dL Globulin gm/dL Albumin/Globulin Ratio (1.1-1.8) 03/18/18 03/18/18 03/18/18 Range/Units 20:50 19:56 19:14 WBC (4.5-11.0) 10^3/ul RBC (3.5-6.1) 10^6/uL Hgb (14.0-18.0) g/dL Hct (42.0-52.0) % MCV (80.0-105.0) fl MCH (25.0-35.0) pg MCHC (31.0-37.0) g/dl RDW (11.5-14.5) % Plt Count (120.0-450.0) 10^3/uL MPV (7.0-11.0) fl PT (9.4-12.5) SECONDS INR (0.93-1.08) Sodium (132-148) mmol/L Potassium (3.6-5.0) mmol/L Chloride (98-107) mmol/L Carbon Dioxide (21-33) mmol/L Anion Gap (10-20) BUN (7-21) mg/dL Creatinine (0.8-1.5) mg/dl Est GFR ( Amer) Est GFR (Non-Af Amer) POC Glucose (mg/dL) 233 H 248 H 261 H (65-110) mg/dL Random Glucose (70-110) mg/dL Serum Osmolality (272-300) mosm/kg Calcium (8.4-10.5) mg/dL Total Bilirubin (0.2-1.3) mg/dL AST (17-59) U/L ALT (7-56) U/L Alkaline Phosphatase (38-126) U/L Total Protein (5.8-8.3) g/dL Albumin (3.0-4.8) g/dL Globulin gm/dL Albumin/Globulin Ratio (1.1-1.8) 03/18/18 03/18/18 03/18/18 Range/Units 18:17 17:17 16:14 WBC (4.5-11.0) 10^3/ul RBC (3.5-6.1) 10^6/uL Hgb (14.0-18.0) g/dL Hct (42.0-52.0) % MCV (80.0-105.0) fl MCH (25.0-35.0) pg MCHC (31.0-37.0) g/dl RDW (11.5-14.5) % Plt Count (120.0-450.0) 10^3/uL MPV (7.0-11.0) fl PT (9.4-12.5) SECONDS INR (0.93-1.08) Sodium (132-148) mmol/L Potassium (3.6-5.0) mmol/L Chloride (98-107) mmol/L Carbon Dioxide (21-33) mmol/L Anion Gap (10-20) BUN (7-21) mg/dL Creatinine (0.8-1.5) mg/dl Est GFR ( Amer) Est GFR (Non-Af Amer) POC Glucose (mg/dL) 247 H 237 H 230 H (65-110) mg/dL Random Glucose (70-110) mg/dL Serum Osmolality (272-300) mosm/kg Calcium (8.4-10.5) mg/dL Total Bilirubin (0.2-1.3) mg/dL AST (17-59) U/L ALT (7-56) U/L Alkaline Phosphatase (38-126) U/L Total Protein (5.8-8.3) g/dL Albumin (3.0-4.8) g/dL Globulin gm/dL Albumin/Globulin Ratio (1.1-1.8) Laboratory Results - last 24 hr 03/18/18 03/18/18 03/18/18 16:14 17:17 18:17 WBC RBC Hgb Hct MCV MCH MCHC RDW Plt Count MPV PT INR Sodium Potassium Chloride Carbon Dioxide Anion Gap BUN Creatinine Est GFR ( Amer) Est GFR (Non-Af Amer) POC Glucose (mg/dL) 230 H 237 H 247 H Random Glucose Serum Osmolality Calcium Total Bilirubin AST ALT Alkaline Phosphatase Total Protein Albumin Globulin Albumin/Globulin Ratio 03/18/18 03/18/18 03/18/18 19:14 19:56 20:50 WBC RBC Hgb Hct MCV MCH MCHC RDW Plt Count MPV PT INR Sodium Potassium Chloride Carbon Dioxide Anion Gap BUN Creatinine Est GFR ( Amer) Est GFR (Non-Af Amer) POC Glucose (mg/dL) 261 H 248 H 233 H Random Glucose Serum Osmolality Calcium Total Bilirubin AST ALT Alkaline Phosphatase Total Protein Albumin Globulin Albumin/Globulin Ratio 03/18/18 03/18/18 03/19/18 22:09 23:13 01:16 WBC RBC Hgb Hct MCV MCH MCHC RDW Plt Count MPV PT INR Sodium Potassium Chloride Carbon Dioxide Anion Gap BUN Creatinine Est GFR ( Amer) Est GFR (Non-Af Amer) POC Glucose (mg/dL) 221 H 228 H 221 H Random Glucose Serum Osmolality Calcium Total Bilirubin AST ALT Alkaline Phosphatase Total Protein Albumin Globulin Albumin/Globulin Ratio 03/19/18 03/19/18 03/19/18 03:24 04:12 05:20 WBC RBC Hgb Hct MCV MCH MCHC RDW Plt Count MPV PT INR Sodium Potassium Chloride Carbon Dioxide Anion Gap BUN Creatinine Est GFR ( Amer) Est GFR (Non-Af Amer) POC Glucose (mg/dL) 207 H 219 H 224 H Random Glucose Serum Osmolality Calcium Total Bilirubin AST ALT Alkaline Phosphatase Total Protein Albumin Globulin Albumin/Globulin Ratio 03/19/18 03/19/18 03/19/18 05:40 05:40 05:47 WBC 4.2 L RBC 4.10 Hgb 11.9 L Hct 37.0 L MCV 90.2 MCH 29.0 MCHC 32.2 RDW 18.1 H Plt Count 50 L MPV 10.1 PT INR Sodium 157 H* Potassium 3.6 Chloride 123 H Carbon Dioxide 21 Anion Gap 16 BUN 33 H Creatinine 0.7 L Est GFR ( Amer) > 60 Est GFR (Non-Af Amer) > 60 POC Glucose (mg/dL) 227 H Random Glucose 253 H Serum Osmolality Calcium 9.0 Total Bilirubin 10.8 H AST 73 H D ALT 44 Alkaline Phosphatase 157 H D Total Protein 6.2 Albumin 2.5 L Globulin 3.7 Albumin/Globulin Ratio 0.7 L 03/19/18 03/19/18 03/19/18 06:59 07:44 08:05 WBC RBC Hgb Hct MCV MCH MCHC RDW Plt Count MPV PT 22.7 H INR 1.95 H Sodium Potassium Chloride Carbon Dioxide Anion Gap BUN Creatinine Est GFR ( Amer) Est GFR (Non-Af Amer) POC Glucose (mg/dL) 247 H Random Glucose Serum Osmolality 332 H Calcium Total Bilirubin AST ALT Alkaline Phosphatase Total Protein Albumin Globulin Albumin/Globulin Ratio 03/19/18 03/19/18 03/19/18 08:08 10:26 12:30 WBC RBC Hgb Hct MCV MCH MCHC RDW Plt Count MPV PT INR Sodium Potassium Chloride Carbon Dioxide Anion Gap BUN Creatinine Est GFR ( Amer) Est GFR (Non-Af Amer) POC Glucose (mg/dL) 232 H 238 H 239 H Random Glucose Serum Osmolality Calcium Total Bilirubin AST ALT Alkaline Phosphatase Total Protein Albumin Globulin Albumin/Globulin Ratio 03/19/18 03/19/18 03/19/18 13:13 14:07 14:23 WBC RBC Hgb Hct MCV MCH MCHC RDW Plt Count MPV PT INR Sodium Potassium Chloride Carbon Dioxide Anion Gap BUN Creatinine Est GFR ( Amer) Est GFR (Non-Af Amer) POC Glucose (mg/dL) 253 H 275 H 244 H Random Glucose Serum Osmolality Calcium Total Bilirubin AST ALT Alkaline Phosphatase Total Protein Albumin Globulin Albumin/Globulin Ratio Critical Care Progress Note - Nutrition Nutrition: Nutrition Category Date Time Status NPO Diet [DIET] Diets 03/15/18 Breakfast Ordered Attending/Attestation - Attestation I have personally seen and examined this patient.: Yes I have fully participated in the care of the patient.: Yes I have reviewed all pertinent clinical information: Yes Notes (Text): 03/19/18 15:07 62 yo male with hep c admitted to icu for devastating ICH with ZAC, now 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 Tolerates spontaneous breathing--for trach in am. Will touch base with surgery about peg as well. osm and Na creeping up-->will hold mannitol. INR up and plats down-->progressing liver failure vs DIC. Overall, neuro note noted--as well as neuro prognostication-->spoke with family yesterday at length, want continue support. DVT/GI prophyalxis, HOB>35, oral hygiene, euvolemia, euglycemia, normothermia and 02sat>90% ccm time 40 min
--- NOTE | 2018-03-19 14:33 | CP.PCM.PN ---
Subjective - Date & Time of Evaluation Date of Evaluation: 03/19/18 Time of Evaluation: 13:00 - Subjective Subjective: unresponsive,no changes Objective - Vital Signs/Intake and Output Vital Signs (last 24 hours): Temp Pulse Resp BP Pulse Ox 98.1 F 99 H 14 140/71 99 03/19/18 12:00 03/19/18 12:00 03/19/18 12:00 03/19/18 12:00 03/19/18 12:00 Intake and Output: 03/19/18 03/19/18 06:59 18:59 Intake Total 287 9 Output Total 400 Balance -113 9 - Medications Medications: Current Medications Propofol (Diprivan) 1,000 mg in 100 mls @ 1.932 mls/hr IV .Q24H PRN; Protocol; 5 MCG/KG/MIN PRN Reason: TITRATE PER MD ORDER Last Titration: 03/16/18 09:30 Dose: 0 mcg/kg/min, 0 mls/hr Sodium Chloride (Hypertonic Saline 3%) 500 mls @ 30 mls/hr IV .[id number] [facility] Last Admin: 03/15/18 10:50 Dose: 30 mls/hr Levetiracetam (Keppra 500mg Ivpb) 500 mg in 100 mls @ 400 mls/hr IV Q12 [facility] Last Admin: 03/19/18 10:29 Dose: Not Given Insulin Human Regular 100 (units/ Sodium Chloride) 100 mls @ 2 mls/hr IV .Q24H PRN; Protocol; 2 UNITS/HR PRN Reason: TITRATE PER MD ORDER Last Titration: 03/19/18 12:30 Dose: 2 units/hr, 2 mls/hr Insulin Human Lispro (Humalog High) 0 units SC ACHS [facility] PRN Reason: Protocol Last Admin: 03/17/18 08:59 Dose: Not Given Insulin Lispro Protam/Lispro Human (Humalog Mix 75/25) 15 units SC BIDAC [facility] Last Admin: 03/17/18 08:59 Dose: Not Given Labetalol HCl (Trandate) 10 mg IV Q4 PRN PRN Reason: Blood Pressure 220/110 & above Lactulose (Enulose) 30 gm PO TID [facility] Last Admin: 03/19/18 10:28 Dose: Not Given Levothyroxine Sodium (Synthroid) 75 mcg PO 0600 [facility] Last Admin: 03/19/18 05:40 Dose: 75 mcg Ondansetron HCl (Zofran Inj) 4 mg IVP Q6H PRN PRN Reason: Nausea/Vomiting Last Admin: 03/15/18 00:14 Dose: 4 mg Pantoprazole Sodium (Protonix Inj) 40 mg IVP DAILY [facility] Last Admin: 03/19/18 10:29 Dose: Not Given Spironolactone (Aldactone) 100 mg PO DAILY [facility] Last Admin: 03/19/18 10:28 Dose: Not Given Sucralfate (Carafate Tab) 1 gm PO 0600,1600 [facility] Last Admin: 03/19/18 05:40 Dose: 1 gm - Labs Labs: 03/19/18 05:40 03/19/18 05:40 PT 22.7 SECONDS (9.4-12.5) H 03/19/18 08:05 INR 1.95 (0.93-1.08) H 03/19/18 08:05 APTT 38.3 Seconds (25.1-36.5) H 03/11/18 18:45 - Constitutional Appears: Chronically Ill - Head Exam Head Exam: NORMOCEPHALIC - Eye Exam Eye Exam: Scleral icterus Pupil Exam: Fixed - ENT Exam ENT Exam: Mucous Membranes Moist - Respiratory Exam Respiratory Exam: Decreased Breath Sounds - Cardiovascular Exam Cardiovascular Exam: REGULAR RHYTHM, +S1, +S2 - GI/Abdominal Exam GI & Abdominal Exam: Distended - Extremities Exam Additional comments: 2 + edema of both lower extremities - Skin Skin Exam: Dry Assessment and Plan - Assessment and Plan (Free Text) Assessment: 62 year old male with history of ESLD, HTN, DM ascites who was admitted with left IHP hemorrhage, right subarachnoid hemorrhage, respiratory failure. IHS 4 I spoke with Padmini via phone. Padmini states he was present last evening when family spoke with medical associate pastor. Family aware of patients medical condition and poor prognosis. Family given option of trach/PEG or terminal extubation and taking patient home. Family decided that they want to pursue trach and PEG. I clarified comfort care option explaining that patient could be kept in hospital and proved with comfort measures only. Padmini states that family discussed options with their anabaptism adviser and want trach/PEG. Goals of care, 15 minutes Plan: Goals of care. Evaluate for trach and PEG placement
--- NOTE | 2018-03-19 15:14 | CP.PCM.CON ---
History of Present Illness - History of Present Illness History of Present Illness: pt seen and examined in ICU. Pt has ESLD/Hepatitis C and during hospitalization pt had a vomiting episode with subsequent cerebral hemorrhage and then subsequent SAH. Pt remains unresponsive on vent. Review of Systems - Constitutional Constitutional: As Per HPI - EENT Eyes: As Per HPI Ears: As Per HPI Nose/Mouth/Throat: As Per HPI - Cardiovascular Cardiovascular: As Per HPI - Respiratory Respiratory: As Per HPI - Gastrointestinal Gastrointestinal: As Per HPI - Genitourinary Genitourinary: As Per HPI - Reproductive: Male Reproductive:Male: As Per HPI - Musculoskeletal Musculoskeletal: As Per HPI - Integumentary Integumentary: As Per HPI - Neurological Neurological: As Per HPI - Psychiatric Psychiatric: As Per HPI Past Patient History - Infectious Disease Hx of Infectious Diseases: None - Tetanus Immunizations Tetanus Immunization: Unknown - Past Medical History & Family History Past Medical History?: Yes - Past Social History Smoking Status: Light Smoker < 10 Cigarettes Daily - CARDIAC Hx Pacemaker: No - PULMONARY Hx Respiratory Disorders: No - NEUROLOGICAL Hx Neurological Disorder: No - HEENT Hx HEENT Problems: No - RENAL Hx Chronic Kidney Disease: No - ENDOCRINE/METABOLIC Hx Diabetes Mellitus Type 1: Yes - HEMATOLOGICAL/ONCOLOGICAL Hx Cancer: No - INTEGUMENTARY Hx Dermatological Problems: No - MUSCULOSKELETAL/RHEUMATOLOGICAL Hx Musculoskeletal Disorders: No Hx Falls: Yes - GASTROINTESTINAL Hx Gastrointestinal Disorders: Yes Other/Comment: Liver Disease - GENITOURINARY/GYNECOLOGICAL Hx Genitourinary Disorders: No - PSYCHIATRIC Hx Psychophysiologic Disorder: No Hx Substance Use: No - SURGICAL HISTORY Hx Mastectomy: No - ANESTHESIA Hx Anesthesia: No Hx Anesthesia Reactions: No Meds Home Medications: Home Medication List Medication Instructions Recorded Confirmed Type Furosemide [Lasix] 40 mg PO DAILY #30 tablet 03/14/18 Rx Lactulose [Enulose] 30 gm PO TID #90 udc 03/14/18 Rx Pantoprazole [Protonix EC Tab] 40 mg PO 0600 #30 ect 03/14/18 Rx Spironolactone [Aldactone] 100 mg PO DAILY #30 tablet 03/14/18 Rx rifAXIMin [Xifaxan] 550 mg PO BID #60 tab 03/14/18 Rx Allergies/Adverse Reactions: Allergies Allergy/AdvReac Type Severity Reaction Status Date / Time No Known Allergies Allergy Verified 01/08/18 20:25 - Medications Medications: Current Medications Propofol (Diprivan) 1,000 mg in 100 mls @ 1.932 mls/hr IV .Q24H PRN; Protocol; 5 MCG/KG/MIN PRN Reason: TITRATE PER MD ORDER Last Titration: 03/16/18 09:30 Dose: 0 mcg/kg/min, 0 mls/hr Sodium Chloride (Hypertonic Saline 3%) 500 mls @ 30 mls/hr IV .[id number] [facility] Last Admin: 03/15/18 10:50 Dose: 30 mls/hr Levetiracetam (Keppra 500mg Ivpb) 500 mg in 100 mls @ 400 mls/hr IV Q12 [facility] Last Admin: 03/19/18 10:29 Dose: Not Given Insulin Human Regular 100 (units/ Sodium Chloride) 100 mls @ 2 mls/hr IV .Q24H PRN; Protocol; 2 UNITS/HR PRN Reason: TITRATE PER MD ORDER Last Titration: 03/19/18 14:10 Dose: 3 units/hr, 3 mls/hr Insulin Human Lispro (Humalog High) 0 units SC ACHS [facility] PRN Reason: Protocol Last Admin: 03/17/18 08:59 Dose: Not Given Insulin Lispro Protam/Lispro Human (Humalog Mix 75/25) 15 units SC BIDAC [facility] Last Admin: 03/17/18 08:59 Dose: Not Given Labetalol HCl (Trandate) 10 mg IV Q4 PRN PRN Reason: Blood Pressure 220/110 & above Lactulose (Enulose) 30 gm PO TID [facility] Last Admin: 03/19/18 14:03 Dose: 30 gm Levothyroxine Sodium (Synthroid) 75 mcg PO 0600 [facility] Last Admin: 03/19/18 05:40 Dose: 75 mcg Ondansetron HCl (Zofran Inj) 4 mg IVP Q6H PRN PRN Reason: Nausea/Vomiting Last Admin: 03/15/18 00:14 Dose: 4 mg Pantoprazole Sodium (Protonix Inj) 40 mg IVP DAILY [facility] Last Admin: 03/19/18 10:29 Dose: Not Given Spironolactone (Aldactone) 100 mg PO DAILY [facility] Last Admin: 03/19/18 10:28 Dose: Not Given Sucralfate (Carafate Tab) 1 gm PO 0600,1600 [facility] Last Admin: 03/19/18 05:40 Dose: 1 gm Physical Exam - Constitutional Appears: Chronically Ill - Head Exam Head Exam: ATRAUMATIC, NORMAL INSPECTION, NORMOCEPHALIC - ENT Exam ENT Exam: Mucous Membranes Moist Additional comments: ET in place - Neck Exam Additional comments: palpable landmarks, no adenopathy/thyromegaly Results - Vital Signs Recent Vital Signs: Last Vital Signs Temp 98.1 F 03/19/18 12:00 Pulse 84 03/19/18 14:00 Resp 14 03/19/18 12:00 BP 142/71 03/19/18 14:00 Pulse Ox 100 03/19/18 14:00 - Labs Result Diagrams: 03/19/18 05:40 03/19/18 05:40 Labs: Laboratory Results - last 24 hr 03/18/18 03/18/18 03/18/18 14:59 16:14 17:17 WBC RBC Hgb Hct MCV MCH MCHC RDW Plt Count MPV PT INR Sodium Potassium Chloride Carbon Dioxide Anion Gap BUN Creatinine Est GFR ( Amer) Est GFR (Non-Af Amer) POC Glucose (mg/dL) 321 H 230 H 237 H Random Glucose Serum Osmolality Calcium Total Bilirubin AST ALT Alkaline Phosphatase Total Protein Albumin Globulin Albumin/Globulin Ratio 03/18/18 03/18/18 03/18/18 18:17 19:14 19:56 WBC RBC Hgb Hct MCV MCH MCHC RDW Plt Count MPV PT INR Sodium Potassium Chloride Carbon Dioxide Anion Gap BUN Creatinine Est GFR ( Amer) Est GFR (Non-Af Amer) POC Glucose (mg/dL) 247 H 261 H 248 H Random Glucose Serum Osmolality Calcium Total Bilirubin AST ALT Alkaline Phosphatase Total Protein Albumin Globulin Albumin/Globulin Ratio 03/18/18 03/18/18 03/18/18 20:50 22:09 23:13 WBC RBC Hgb Hct MCV MCH MCHC RDW Plt Count MPV PT INR Sodium Potassium Chloride Carbon Dioxide Anion Gap BUN Creatinine Est GFR ( Amer) Est GFR (Non-Af Amer) POC Glucose (mg/dL) 233 H 221 H 228 H Random Glucose Serum Osmolality Calcium Total Bilirubin AST ALT Alkaline Phosphatase Total Protein Albumin Globulin Albumin/Globulin Ratio 03/19/18 03/19/18 03/19/18 01:16 03:24 04:12 WBC RBC Hgb Hct MCV MCH MCHC RDW Plt Count MPV PT INR Sodium Potassium Chloride Carbon Dioxide Anion Gap BUN Creatinine Est GFR ( Amer) Est GFR (Non-Af Amer) POC Glucose (mg/dL) 221 H 207 H 219 H Random Glucose Serum Osmolality Calcium Total Bilirubin AST ALT Alkaline Phosphatase Total Protein Albumin Globulin Albumin/Globulin Ratio 03/19/18 03/19/18 03/19/18 05:20 05:40 05:40 WBC 4.2 L RBC 4.10 Hgb 11.9 L Hct 37.0 L MCV 90.2 MCH 29.0 MCHC 32.2 RDW 18.1 H Plt Count 50 L MPV 10.1 PT INR Sodium 157 H* Potassium 3.6 Chloride 123 H Carbon Dioxide 21 Anion Gap 16 BUN 33 H Creatinine 0.7 L Est GFR ( Amer) > 60 Est GFR (Non-Af Amer) > 60 POC Glucose (mg/dL) 224 H Random Glucose 253 H Serum Osmolality Calcium 9.0 Total Bilirubin 10.8 H AST 73 H D ALT 44 Alkaline Phosphatase 157 H D Total Protein 6.2 Albumin 2.5 L Globulin 3.7 Albumin/Globulin Ratio 0.7 L 03/19/18 03/19/18 03/19/18 05:47 06:59 07:44 WBC RBC Hgb Hct MCV MCH MCHC RDW Plt Count MPV PT INR Sodium Potassium Chloride Carbon Dioxide Anion Gap BUN Creatinine Est GFR ( Amer) Est GFR (Non-Af Amer) POC Glucose (mg/dL) 227 H 247 H Random Glucose Serum Osmolality 332 H Calcium Total Bilirubin AST ALT Alkaline Phosphatase Total Protein Albumin Globulin Albumin/Globulin Ratio 03/19/18 03/19/18 03/19/18 08:05 08:08 10:26 WBC RBC Hgb Hct MCV MCH MCHC RDW Plt Count MPV PT 22.7 H INR 1.95 H Sodium Potassium Chloride Carbon Dioxide Anion Gap BUN Creatinine Est GFR ( Amer) Est GFR (Non-Af Amer) POC Glucose (mg/dL) 232 H 238 H Random Glucose Serum Osmolality Calcium Total Bilirubin AST ALT Alkaline Phosphatase Total Protein Albumin Globulin Albumin/Globulin Ratio 03/19/18 03/19/18 03/19/18 12:30 13:13 14:07 WBC RBC Hgb Hct MCV MCH MCHC RDW Plt Count MPV PT INR Sodium Potassium Chloride Carbon Dioxide Anion Gap BUN Creatinine Est GFR ( Amer) Est GFR (Non-Af Amer) POC Glucose (mg/dL) 239 H 253 H 275 H Random Glucose Serum Osmolality Calcium Total Bilirubin AST ALT Alkaline Phosphatase Total Protein Albumin Globulin Albumin/Globulin Ratio 03/19/18 14:23 WBC RBC Hgb Hct MCV MCH MCHC RDW Plt Count MPV PT INR Sodium Potassium Chloride Carbon Dioxide Anion Gap BUN Creatinine Est GFR ( Amer) Est GFR (Non-Af Amer) POC Glucose (mg/dL) 244 H Random Glucose Serum Osmolality Calcium Total Bilirubin AST ALT Alkaline Phosphatase Total Protein Albumin Globulin Albumin/Globulin Ratio Assessment & Plan (1) Respiratory failure Status: Acute (2) Change in mental status Status: Acute (3) Hepatic encephalopathy syndrome Status: Acute (4) Hyperglycemia Status: Acute (5) Increased ammonia level Status: Acute (6) Intracranial hemorrhage Status: Acute (7) Abdominal distension Status: Acute (8) Abdominal pain Status: Acute (9) Altered mental status Status: Acute (10) Ascites Status: Acute (11) Ascites of liver Status: Acute (12) Chronic active hepatitis C Status: Acute (13) Coagulopathy Status: Acute (14) Conjunctivitis Status: Acute (15) Constipation Status: Acute (16) Diabetes Status: Acute (17) Diabetes mellitus Status: Acute (18) Diabetes mellitus Status: Acute (19) Dizziness Status: Acute (20) Edema extremities Status: Acute (21) Elevated liver enzymes Status: Acute (22) Evaluation by medical service required Status: Acute (23) Fever Status: Acute (24) Hepatic cirrhosis Status: Acute (25) Hepatic cirrhosis Status: Acute (26) Hyperglycemia Status: Acute (27) Hyponatremia syndrome Status: Acute (28) Increased ammonia level Status: Acute (29) Inguinal hernia Status: Acute (30) Portal vein thrombosis Status: Acute (31) Prophylactic measure Status: Acute (32) Shoulder contusion Status: Acute (33) Tobacco abuse Status: Acute (34) Hypertension Status: Chronic (35) Leukopenia Status: Chronic (36) Poorly controlled diabetes mellitus Status: Chronic (37) Thrombocytopenia Status: Chronic - Assessment and Plan (Free Text) Plan: Tracheotomy if family agreeable, await family decision, will be available Saturday unless another service performs tracheotomy sooner - Date & Time Date: 03/19/18 Time: 15:06
--- NOTE | 2018-03-19 15:27 | PN ---
DATE: 03/19/2018 SUBJECTIVE: The patient is seen and examined at bedside. He is off of sedation; however, he is not responsive to painful touch or verbal stimuli. He is on pressure support 5/5 with FiO2 of 40%. PHYSICAL EXAMINATION: VITAL SIGNS: Heart rate 101, oxygen saturation 100%, end tidal CO2 on the monitor 28, respiratory rate 18, blood pressure 130/75. HEENT: Head and neck atraumatic. LUNGS: Clear to auscultation bilaterally. HEART: Regular rate and rhythm. S1, S2 normal. ABDOMEN: Soft, nontender, mildly distended. MUSCULOSKELETAL: No C/C/E. . NEUROLOGIC: The patient was not seen moving his extremities spontaneously. SKIN: Moist. PSYCHIATRIC: The patient is not responsive to any stimuli. LABORATORY DATA: WBC is 4.2, hemoglobin 11.9, platelet count 50, glucose 247. Sodium 155, potassium 3.6, chloride 120, carbon dioxide 24, BUN 28, creatinine 0.7. MEDICATIONS: Tylenol p.r.n., insulin drip, Keppra, labetalol p.r.n., lactulose, Aldactone,. ASSESSMENT AND PLAN: This is a 62-year-old gentleman with very extensive intracranial bleed with intraventricular extension. He does not appear to have any supratentorial activity. However, he is doing pretty well on pressure support ventilation and we will try on T-piece. Family decided to proceed with trach. ENT consult was placed. PEG tube will be discussed with Surgery; We will continue with head of bed elevated >35 degrees, oral hygiene, deep venous thrombosis and gastrointestinal prophylaxis. The patient is hemodynamically relatively stable. I will hold mannitol, check osmolality and sodium. We will maintain sodium between 150 and 160. Neurology followup appreciated. We will maintain euvolemia, euglycemia, normothermia, and oxygen saturation more than 100%. We will maintain pCO2 and pH within normal range. INR is up, plats down--> liver failure vs DIC ccm time 40 min Guillermo Sanchez MD NATHAN
--- NOTE | 2018-03-19 15:29 | CON ---
DATE: 03/19/2018 HISTORY OF PRESENT ILLNESS: I examined Mr. Feng this morning. This is a 62-year-old male with past medical history of end-stage liver disease, hepatitis C, cirrhosis which is decompensated, diabetes, medication noncompliance, currently intubated in the ICU. The patient apparently had a massive hemorrhage in the left parietal lobe, also updated CT shows new subarachnoid hemorrhage. The patient has had known decompensated cirrhosis and previous hepatic encephalopathy for quite some time. I reviewed this case with the nurse in the unit. PHYSICAL EXAMINATION: VITAL SIGNS: The patient was examined while on the respirator. LUNGS: Clear to coarse breath sounds. HEART: Regular rhythm. ABDOMEN: Protuberant and significant for ascites on exam. EXTREMITIES: Indicate swelling both on the right and left side of the arms. LABORATORY DATA: I reviewed this patient's laboratory data which most recently consisted of an H and H of 11.9/36, white count of 4500. His INR is 1.9. Chemistries revealed sodium of 120 with a chloride of 120. BUN and creatinine ratio 20/0.7. Note that his sugars have been in the area of mid 250s. Head CT was reported previously in my note above. I reviewed the notes of various consultants. OVERALL ASSESSMENT: This is a 62-year-old male with history of decompensated cirrhosis, admitted with an intracranial bleed. Note that the request was for insertion of percutaneous endoscopic gastrostomy tube. I do not feel a percutaneous endoscopic gastrostomy tube is appropriate in this particular case given the patient's clinical status. The other major issue is insertion of a percutaneous endoscopic gastrostomy tube in a case like this with ascites and decompensated cirrhosis may result in rupture of a gastric varix and hemorrhage . Bottom line is I do not feel percutaneous endoscopic gastrostomy tube is appropriate in this particular case. Oliver Chery DO, PhD NATHAN
--- NOTE | 2018-03-19 16:07 | CP.PCM.CON ---
History of Present Illness - History of Present Illness History of Present Illness: Surgery Consult Note. Dr. Liriano Consulted for possible Tracheostomy and Gastrostomy Patient history obtained from chart review due to current condition. 62yo M with PMHx of Hep C, Cirrhosis, IDDM here on 03/11 for AMS. Initially, patient was found to have Hepatic Encephalopathy and was improving clinically. On 03/14, patient had an acute worsening in mental status and a CT head was performed. Evidence of a large Right Parietal intraparenchymal bleed was found with interventricular extension and a 11mm [id number] midline shift. Patient has since been intubated (on 03/15). GI team has been following as well and has deemed it unsafe for PEG due to patient's ascites. Currently, patient is in the ICU, Intubated and off sedation, off vent and on T-Bar and breathing on his own. Patient is minimally responsive to painful stimuli. As per ICU team, patient's family currently would like to consider Trach and Gastrostomy tube. Full 12-point ROS unobtainable due to patient's current state. PMHx: Hep C, Cirrhosis, IDDM PSHx: denied Family Hx: Unobtainable Social Hx: Lives at home with and son. Current tobacco use 5cigs/day x 20+ yrs. Denied ETOH and illicit drugs NKDA Review of Systems - Review of Systems Systems not reviewed;Unavailable: Altered Mental Status, Intubated Past Patient History - Infectious Disease Hx of Infectious Diseases: None - Tetanus Immunizations Tetanus Immunization: Unknown - Past Medical History & Family History Past Medical History?: Yes Past Family History: Reviewed and not pertinent - Past Social History Smoking Status: Light Smoker < 10 Cigarettes Daily Alcohol: None Drugs: Denies - CARDIAC Hx Pacemaker: No - PULMONARY Hx Respiratory Disorders: No - NEUROLOGICAL Hx Neurological Disorder: No - HEENT Hx HEENT Problems: No - RENAL Hx Chronic Kidney Disease: No - ENDOCRINE/METABOLIC Hx Diabetes Mellitus Type 1: Yes - HEMATOLOGICAL/ONCOLOGICAL Hx Cancer: No - INTEGUMENTARY Hx Dermatological Problems: No - MUSCULOSKELETAL/RHEUMATOLOGICAL Hx Musculoskeletal Disorders: No Hx Falls: Yes - GASTROINTESTINAL Hx Gastrointestinal Disorders: Yes Other/Comment: Liver Disease - GENITOURINARY/GYNECOLOGICAL Hx Genitourinary Disorders: No - PSYCHIATRIC Hx Psychophysiologic Disorder: No Hx Substance Use: No - SURGICAL HISTORY Hx Mastectomy: No - ANESTHESIA Hx Anesthesia: No Hx Anesthesia Reactions: No Meds Home Medications: Home Medication List Medication Instructions Recorded Confirmed Type Furosemide [Lasix] 40 mg PO DAILY #30 tablet 03/14/18 Rx Lactulose [Enulose] 30 gm PO TID #90 udc 03/14/18 Rx Pantoprazole [Protonix EC Tab] 40 mg PO 0600 #30 ect 03/14/18 Rx Spironolactone [Aldactone] 100 mg PO DAILY #30 tablet 03/14/18 Rx rifAXIMin [Xifaxan] 550 mg PO BID #60 tab 03/14/18 Rx Allergies/Adverse Reactions: Allergies Allergy/AdvReac Type Severity Reaction Status Date / Time No Known Allergies Allergy Verified 01/08/18 20:25 - Medications Medications: Current Medications Propofol (Diprivan) 1,000 mg in 100 mls @ 1.932 mls/hr IV .Q24H PRN; Protocol; 5 MCG/KG/MIN PRN Reason: TITRATE PER MD ORDER Last Titration: 03/16/18 09:30 Dose: 0 mcg/kg/min, 0 mls/hr Sodium Chloride (Hypertonic Saline 3%) 500 mls @ 30 mls/hr IV .[id number] [facility] Last Admin: 03/15/18 10:50 Dose: 30 mls/hr Levetiracetam (Keppra 500mg Ivpb) 500 mg in 100 mls @ 400 mls/hr IV Q12 [facility] Last Admin: 03/19/18 10:29 Dose: Not Given Insulin Human Regular 100 (units/ Sodium Chloride) 100 mls @ 2 mls/hr IV .Q24H PRN; Protocol; 2 UNITS/HR PRN Reason: TITRATE PER MD ORDER Last Titration: 03/19/18 14:10 Dose: 3 units/hr, 3 mls/hr Insulin Human Lispro (Humalog High) 0 units SC ACHS [facility] PRN Reason: Protocol Last Admin: 03/17/18 08:59 Dose: Not Given Insulin Lispro Protam/Lispro Human (Humalog Mix 75/25) 15 units SC BIDAC [facility] Last Admin: 03/17/18 08:59 Dose: Not Given Labetalol HCl (Trandate) 10 mg IV Q4 PRN PRN Reason: Blood Pressure 220/110 & above Lactulose (Enulose) 30 gm PO TID [facility] Last Admin: 03/19/18 14:03 Dose: 30 gm Levothyroxine Sodium (Synthroid) 75 mcg PO 0600 [facility] Last Admin: 03/19/18 05:40 Dose: 75 mcg Ondansetron HCl (Zofran Inj) 4 mg IVP Q6H PRN PRN Reason: Nausea/Vomiting Last Admin: 03/15/18 00:14 Dose: 4 mg Pantoprazole Sodium (Protonix Inj) 40 mg IVP DAILY [facility] Last Admin: 03/19/18 10:29 Dose: Not Given Spironolactone (Aldactone) 100 mg PO DAILY [facility] Last Admin: 03/19/18 10:28 Dose: Not Given Sucralfate (Carafate Tab) 1 gm PO 0600,1600 [facility] Last Admin: 03/19/18 05:40 Dose: 1 gm Physical Exam - Constitutional Appears: Older Than Stated Age, Chronically Ill - Head Exam Head Exam: ATRAUMATIC, NORMAL INSPECTION, NORMOCEPHALIC - ENT Exam Additional comments: intubated, off sedation, off vent. On T-Bar with 40%FiO2, spontaneously breathing - Respiratory Exam Respiratory Exam: Decreased Breath Sounds (slightly decreased breath sounds bilaterally at bases) Additional comments: intubated and connected to T-Bar with FiO2 of 40% - GI/Abdominal Exam Additional comments: abdominal fluid wave present. Small reducible umbilical hernia present. No apparent surgical scars noted. No apparent abdominal tenderness - Neurological Exam Additional comments: Off sedation. Not arousable. Minimally responsive to painful stimuli Results - Vital Signs Recent Vital Signs: Last Vital Signs Temp 98.6 F 03/19/18 16:00 Pulse 98 H 03/19/18 16:00 Resp 15 03/19/18 16:00 BP 138/67 03/19/18 16:00 Pulse Ox 99 03/19/18 16:00 - Labs Result Diagrams: 03/19/18 05:40 03/19/18 05:40 Labs: Laboratory Results - last 24 hr 03/18/18 03/18/18 03/18/18 16:14 17:17 18:17 WBC RBC Hgb Hct MCV MCH MCHC RDW Plt Count MPV PT INR Sodium Potassium Chloride Carbon Dioxide Anion Gap BUN Creatinine Est GFR ( Amer) Est GFR (Non-Af Amer) POC Glucose (mg/dL) 230 H 237 H 247 H Random Glucose Serum Osmolality Calcium Total Bilirubin AST ALT Alkaline Phosphatase Total Protein Albumin Globulin Albumin/Globulin Ratio 03/18/18 03/18/18 03/18/18 19:14 19:56 20:50 WBC RBC Hgb Hct MCV MCH MCHC RDW Plt Count MPV PT INR Sodium Potassium Chloride Carbon Dioxide Anion Gap BUN Creatinine Est GFR ( Amer) Est GFR (Non-Af Amer) POC Glucose (mg/dL) 261 H 248 H 233 H Random Glucose Serum Osmolality Calcium Total Bilirubin AST ALT Alkaline Phosphatase Total Protein Albumin Globulin Albumin/Globulin Ratio 03/18/18 03/18/18 03/19/18 22:09 23:13 01:16 WBC RBC Hgb Hct MCV MCH MCHC RDW Plt Count MPV PT INR Sodium Potassium Chloride Carbon Dioxide Anion Gap BUN Creatinine Est GFR ( Amer) Est GFR (Non-Af Amer) POC Glucose (mg/dL) 221 H 228 H 221 H Random Glucose Serum Osmolality Calcium Total Bilirubin AST ALT Alkaline Phosphatase Total Protein Albumin Globulin Albumin/Globulin Ratio 03/19/18 03/19/18 03/19/18 03:24 04:12 05:20 WBC RBC Hgb Hct MCV MCH MCHC RDW Plt Count MPV PT INR Sodium Potassium Chloride Carbon Dioxide Anion Gap BUN Creatinine Est GFR ( Amer) Est GFR (Non-Af Amer) POC Glucose (mg/dL) 207 H 219 H 224 H Random Glucose Serum Osmolality Calcium Total Bilirubin AST ALT Alkaline Phosphatase Total Protein Albumin Globulin Albumin/Globulin Ratio 03/19/18 03/19/18 03/19/18 05:40 05:40 05:47 WBC 4.2 L RBC 4.10 Hgb 11.9 L Hct 37.0 L MCV 90.2 MCH 29.0 MCHC 32.2 RDW 18.1 H Plt Count 50 L MPV 10.1 PT INR Sodium 157 H* Potassium 3.6 Chloride 123 H Carbon Dioxide 21 Anion Gap 16 BUN 33 H Creatinine 0.7 L Est GFR ( Amer) > 60 Est GFR (Non-Af Amer) > 60 POC Glucose (mg/dL) 227 H Random Glucose 253 H Serum Osmolality Calcium 9.0 Total Bilirubin 10.8 H AST 73 H D ALT 44 Alkaline Phosphatase 157 H D Total Protein 6.2 Albumin 2.5 L Globulin 3.7 Albumin/Globulin Ratio 0.7 L 05/07/2903/19/18 03/19/18 06:59 07:44 08:05 WBC RBC Hgb Hct MCV MCH MCHC RDW Plt Count MPV PT 22.7 H INR 1.95 H Sodium Potassium Chloride Carbon Dioxide Anion Gap BUN Creatinine Est GFR ( Amer) Est GFR (Non-Af Amer) POC Glucose (mg/dL) 247 H Random Glucose Serum Osmolality 332 H Calcium Total Bilirubin AST ALT Alkaline Phosphatase Total Protein Albumin Globulin Albumin/Globulin Ratio 03/19/18 03/19/18 03/19/18 08:08 10:26 12:30 WBC RBC Hgb Hct MCV MCH MCHC RDW Plt Count MPV PT INR Sodium Potassium Chloride Carbon Dioxide Anion Gap BUN Creatinine Est GFR ( Amer) Est GFR (Non-Af Amer) POC Glucose (mg/dL) 232 H 238 H 239 H Random Glucose Serum Osmolality Calcium Total Bilirubin AST ALT Alkaline Phosphatase Total Protein Albumin Globulin Albumin/Globulin Ratio 03/19/18 03/19/18 03/19/18 13:13 14:07 14:23 WBC RBC Hgb Hct MCV MCH MCHC RDW Plt Count MPV PT INR Sodium Potassium Chloride Carbon Dioxide Anion Gap BUN Creatinine Est GFR ( Amer) Est GFR (Non-Af Amer) POC Glucose (mg/dL) 253 H 275 H 244 H Random Glucose Serum Osmolality Calcium Total Bilirubin AST ALT Alkaline Phosphatase Total Protein Albumin Globulin Albumin/Globulin Ratio Assessment & Plan - Assessment and Plan (Free Text) Assessment: 62yo M with Large R parietal intraparenchymal hemorrhage with 11mm left-to- right midline shift. Surgery following for possible Trach and Gastrostomy placement. - Thrombocytopenia noted - Coagulopathy noted - Intubated on 03/15/18 for airway protection. Currently spontaneously breathing with T-Bar Plan: - patient will need to be optimized for surgery - Improve thrombocytopenia and coagulopathy - Possible OR early next week for Trach and Gastrostomy if family is agreeable Further recs as per Dr. Heri Cabral PGY1 surgery pager: [phone]
--- NOTE | 2018-03-19 22:18 | PCM.EEG ---
Electroencephalogram Report - Electroencephalogram Report Procedure Date: 03/17/18 Interpretation: Diffuse slowing of the background with 2-4 hz delta waves, and frequent rhythmuic activity in t3 or t5 that may be seizure. No sleep or normal awake rhythms noted. Impression: This is an abnormal EEG that shows small focal short duration possible seizures in T 3 and T 5 as well as very slow background.
[2018-03-20] MEDS: Insulin Regular 100 UNITS in Sodium Chloride 0.9% 99 ML IV PRN (03:20)
[2018-03-20] MEDS: Levothyroxine 75 MCG TAB PO SCH (06:10)
[2018-03-20 06:48] LABS: HEMOGLOBIN 11.2 g/dL (14.0-18.0); MEAN CELL VOLUME 90.2 fl (80.0-105.0); MEAN CORPUSCULAR HGB CONC 32.2 g/dl (31.0-37.0); MEAN PLATELET VOLUME 10.1 fl (7.0-11.0); RBC 3.86 10^6/uL (3.5-6.1); RED CELL DISTRIBUTION WIDTH 18.3 % (11.5-14.5); WHITE BLOOD COUNT 4.3 10^3/ul (4.5-11.0)
--- NOTE | 2018-03-20 07:01 | CP.PCM.PN ---
<Jacinto Lea - Last Filed: 03/20/18 10:07> Subjective - Date & Time of Evaluation Date of Evaluation: 03/20/18 Time of Evaluation: 07:30 - Subjective Subjective: Medicine Note for Dr. Flores Patient seen and examined in ICU. No acute overnight overnight. He is intubated and on pressure support. He does not respond to any stimuli. Patient has poor prognosis. Objective - Vital Signs/Intake and Output Vital Signs (last 24 hours): Temp Pulse Resp BP Pulse Ox 100.4 F H 115 H 15 140/67 97 03/20/18 04:15 03/20/18 05:59 03/19/18 16:00 03/20/18 06:00 03/20/18 05:59 Intake and Output: 03/20/18 03/20/18 06:59 18:59 Intake Total 205.5 Output Total 600 Balance -394.5 - Medications Medications: Current Medications Sodium Chloride (Hypertonic Saline 3%) 500 mls @ 30 mls/hr IV .[id number] [facility] Last Admin: 03/15/18 10:50 Dose: 30 mls/hr Levetiracetam (Keppra 500mg Ivpb) 500 mg in 100 mls @ 400 mls/hr IV Q12 [facility] Last Admin: 03/19/18 22:00 Dose: 400 mls/hr Insulin Human Regular 100 (units/ Sodium Chloride) 100 mls @ 2 mls/hr IV .Q24H PRN; Protocol; 2 UNITS/HR PRN Reason: TITRATE PER MD ORDER Last Titration: 03/20/18 06:00 Dose: 2 units/hr, 2 mls/hr Insulin Human Lispro (Humalog High) 0 units SC ACHS [facility] PRN Reason: Protocol Last Admin: 03/17/18 08:59 Dose: Not Given Insulin Lispro Protam/Lispro Human (Humalog Mix 75/25) 15 units SC BIDAC [facility] Last Admin: 03/17/18 08:59 Dose: Not Given Labetalol HCl (Trandate) 10 mg IV Q4 PRN PRN Reason: Blood Pressure 220/110 & above Lactulose (Enulose) 30 gm PO TID [facility] Last Admin: 03/19/18 14:03 Dose: 30 gm Levothyroxine Sodium (Synthroid) 75 mcg PO 0600 [facility] Last Admin: 03/20/18 06:10 Dose: 75 mcg Ondansetron HCl (Zofran Inj) 4 mg IVP Q6H PRN PRN Reason: Nausea/Vomiting Last Admin: 03/15/18 00:14 Dose: 4 mg Pantoprazole Sodium (Protonix Inj) 40 mg IVP DAILY [facility] Last Admin: 03/19/18 10:29 Dose: Not Given Spironolactone (Aldactone) 100 mg PO DAILY [facility] Last Admin: 03/19/18 10:28 Dose: Not Given Sucralfate (Carafate Tab) 1 gm PO 0600,1600 [facility] Last Admin: 03/20/18 06:10 Dose: 1 gm - Labs Labs: 03/19/18 05:40 03/19/18 05:40 PT 22.7 SECONDS (9.4-12.5) H 03/19/18 08:05 INR 1.95 (0.93-1.08) H 03/19/18 08:05 APTT 38.3 Seconds (25.1-36.5) H 03/11/18 18:45 - Constitutional Appears: No Acute Distress, Chronically Ill - Eye Exam Eye Exam: Scleral icterus - ENT Exam ENT Exam: Mucous Membranes Dry - Respiratory Exam Additional comments: intubated and on pressure support - Cardiovascular Exam Cardiovascular Exam: Tachycardia - GI/Abdominal Exam GI & Abdominal Exam: Distended, Soft, Normal Bowel Sounds Additional comments: +fluid shift/wave - Neurological Exam Neurological Exam: Altered Additional comments: GCS 3t, no corneal reflex - Psychiatric Exam Psychiatric exam: Flat Affect - Skin Skin Exam: Dry, Warm Additional comments: various stage blister located on hip Assessment and Plan - Assessment and Plan (Free Text) Assessment: 62 M with PMH of end stage liver disease, Hep C, Cirrhosis, DM, non-compliance, intubated in the ICU with SAH/CVA. Overall, patient has poor prognosis Neuro (55) Head CT showed massive hemorrhage in left partietal lobe extending to cortical surface with 11mm of midline shift (6) head CT showed new subarachnoid hemorrhage over the right hemisphere Neurosurgery consult, no surgical intervention, poor prognosis Neurology consult, help appreciated keppra lactulose and rifaximin Palliative care consult HOB 30 degrees Cardio Maintain MAP>65 Tachycardic Labetalol PRN Pulm Intubated and on pressure support Maintain sat > 90% Gen surg and ENT consult for Tracheostomy GI NPO Continue sucralfate GI consult for PEG tube Gen surg consult for g tube Renal Strict I's & O's Monitor Urine output Aldactone ID febrile cooling blanket ofirmev Monitor Endo Synthroid 75 Insulin drip Maintain euglycemia 140-180 GI/DVT ppx: Protonix, no chemical anticoagulation Dispo: Family is in discussion with Palliative care about the plan going forward. Plan for Trach and PEG placement Discussed with Dr. Flores <Chetna Flores - Last Filed: 03/21/18 16:48> Objective - Vital Signs/Intake and Output Vital Signs (last 24 hours): Temp Pulse Resp BP Pulse Ox 98.7 F 99 H 25 H 167/76 H 100 03/21/18 16:00 03/21/18 15:59 03/21/18 15:59 03/21/18 16:00 03/21/18 15:59 Intake and Output: 03/21/18 03/21/18 06:59 18:59 Intake Total 1092.5 Output Total 500 Balance 592.5 - Medications Medications: Current Medications Sodium Chloride (Hypertonic Saline 3%) 500 mls @ 30 mls/hr IV .[id number] [facility] Last Admin: 03/15/18 10:50 Dose: 30 mls/hr Levetiracetam (Keppra 500mg Ivpb) 500 mg in 100 mls @ 400 mls/hr IV Q12 [facility] Last Admin: 03/21/18 10:39 Dose: 400 mls/hr Multivitamins/Vitamin C 10 ml/ (Dextrose) 1,010 mls @ 75 mls/hr IV .[id number] [facility] Last Admin: 03/21/18 14:54 Dose: 75 mls/hr Insulin Human Regular 100 (units/ Sodium Chloride) 100 mls @ 1 mls/hr IV .Q24H PRN; Protocol; 1 UNITS/HR PRN Reason: TITRATE PER MD ORDER Last Admin: 03/21/18 16:24 Dose: 2 units/hr, 2 mls/hr Insulin Human Lispro (Humalog High) 0 units SC ACHS [facility] PRN Reason: Protocol Last Admin: 03/17/18 08:59 Dose: Not Given Insulin Lispro Protam/Lispro Human (Humalog Mix 75/25) 15 units SC BIDAC [facility] Last Admin: 03/17/18 08:59 Dose: Not Given Labetalol HCl (Trandate) 10 mg IV Q4 PRN PRN Reason: Blood Pressure 220/110 & above Lactulose (Enulose) 30 gm PO TID [facility] Last Admin: 03/21/18 14:40 Dose: 30 gm Levothyroxine Sodium (Synthroid) 75 mcg PO 0600 [facility] Last Admin: 03/21/18 06:08 Dose: 75 mcg Ondansetron HCl (Zofran Inj) 4 mg IVP Q6H PRN PRN Reason: Nausea/Vomiting Last Admin: 03/15/18 00:14 Dose: 4 mg Pantoprazole Sodium (Protonix Inj) 40 mg IVP DAILY [facility] Last Admin: 03/21/18 10:38 Dose: 40 mg Rifaximin (Xifaxan) 550 mg PO BID [facility] PRN Reason: Protocol Last Admin: 03/21/18 10:38 Dose: 550 mg Sucralfate (Carafate Oral Susp) 1 gm PO 0600,1600 [facility] Last Admin: 03/21/18 16:16 Dose: 1 gm - Labs Labs: 03/21/18 06:20 03/21/18 06:20 PT 23.9 SECONDS (9.4-12.5) H 03/21/18 06:20 INR 2.05 (0.93-1.08) H 03/21/18 06:20 APTT 37.6 Seconds (25.1-36.5) H 03/21/18 06:20 Attending/Attestation - Attestation I have personally seen and examined this patient.: Yes I have fully participated in the care of the patient.: Yes I have reviewed all pertinent clinical information, including history, physical exam and plan: Yes Notes (Text): I have seen and examined the patient at bedside. Agree with the above note. Patient's prognosis is guarded. Patients family is requesting for trach and peg which will be possibly on Saturday. Patient will need to be optimized prior to surgery.
[2018-03-20 07:21] LABS: ALB/GLOB RATIO 0.6 (1.1-1.8); ALBUMIN 2.3 g/dL (3.0-4.8); ALT/SGPT 44 U/L (7-56); AST/SGOT 68 U/L (17-59); BLOOD UREA NITROGEN 34 mg/dL (7-21); CALCIUM 8.6 mg/dL (8.4-10.5); GFR AFRICAN-AMERICAN > 60; GFR NON-AFRICAN AMERICAN > 60
[2018-03-20] MEDS: levETIRAcetam 500mg IVPB 500 MG/100 ML BAG IV SCH ×2 (09:51→21:54)
[2018-03-20] MEDS ORDERED: Multivitamin (MVI) 10 ML in Dextrose 5% In Water 1,000 ML IV SCH ×2 (10:15→16:55)
--- NOTE | 2018-03-20 11:53 | CP.CCUPN ---
<Tommy Mcconnell - Last Filed: 03/20/18 11:47> CCU Subjective - Physician Review Subjective (Free Text): 03/20/18 11:48 Tommy Mcconnell D.O. PGY-2, Internal Medicine Resident, Critical Care Progress Note 62 year old male with a PMH of end stage liver disease, Hep C, Cirrhosis, DM, non compliance, admitted with large L IPH/CVA. Patient was seen and examined. No changes since yesterday. No overnight events. Still tolerating T piece. CCU Objective - Vital Signs / Intake & Output Intake and Output (Last 8hrs): Intake & Output 03/19/18 03/20/18 03/20/18 22:59 06:59 14:59 Intake Total 101 200.5 4 Output Total 100 600 Balance 1 -399.5 4 Weight 66.224 kg Intake: IV 41 200.5 4 Insulin drip 31 140 Oral 0 Other 60 Output: Gastric Amount 100 Stomach 100 Urine 600 Urethral (Serna) 600 - Physical Exam Head: Positive for: Atraumatic, Normocephalic Pupils: Positive for: Other (2mm non-responsive) Extroacular Muscles: Positive for: EOMI Conjunctiva: Positive for: Normal. Negative for: Injected Ears: Positive for: Normal Mouth: Positive for: Moist Mucous Membranes, Other (intubated) Nose (External): Positive for: Atraumatic Neck: Positive for: Trachea Midline Respiratory/Chest: Positive for: Decreased Breath Sounds, Other (intubated) Cardiovascular: Positive for: Regular Rate and Rhythm, Normal S1, S2. Negative for: Murmurs, Tachycardic Abdomen: Positive for: Normal Bowel Sounds. Negative for: Tenderness, Distention, Peritoneal Signs, Rebound, Guarding, Mass/Organomegaly Back: Positive for: Normal Inspection Upper Extremity: Positive for: Normal Inspection. Negative for: Cyanosis, Edema Lower Extremity: Positive for: Normal Inspection, NORMAL PULSES. Negative for: Edema, CALF TENDERNESS Neurological: Positive for: Other (GCS 3, gag present, no corneal relrex, triple flexor present) Skin: Positive for: Warm, Dry, Normal Color. Negative for: Rashes Psychiatric: Positive for: Other (altered) - Medications Active Medications: Active Medications Generic Name Dose Route Start Last Admin Trade Name Freq PRN Reason Stop Dose Admin Sodium Chloride 500 mls @ 30 mls/hr 03/15/18 09:45 03/15/18 10:50 Hypertonic Saline 3% IV 30 mls/hr .[id number] KAVIN Administration Levetiracetam 500 mg in 100 mls @ 400 mls/hr 03/15/18 12:00 03/20/18 09:51 Keppra 500mg Ivpb IV 400 mls/hr Q12 KAVIN Administration Insulin Human Regular 100 100 mls @ 2 mls/hr 03/17/18 07:59 03/20/18 08:17 units/ Sodium Chloride IV 1.5 units/hr .Q24H PRN 1.5 mls/hr TITRATE PER MD ORDER Titration Protocol 2 UNITS/HR Multivitamins/Vitamin C 10 ml/ 1,010 mls @ 100 mls/hr 03/20/18 10:15 11:38 Dextrose IV 100 mls/hr DAILY KAVIN Administration Insulin Human Lispro 0 units 03/13/18 11:30 03/17/18 08:59 Humalog High SC Not Given ACHS KAVIN Protocol Insulin Lispro Protam/Lispro Human 15 units 03/14/18 16:30 03/17/18 08:59 Humalog Mix 75/25 SC Not Given BIDAC KAVIN Labetalol HCl 10 mg 03/15/18 03:08 Trandate IV Q4 PRN Blood Pressure 220/110 & above Lactulose 30 gm 03/13/18 10:00 03/19/18 14:03 Enulose PO 30 gm TID KAVIN Administration Levothyroxine Sodium 75 mcg 03/17/18 09:51 03/20/18 06:10 Synthroid PO 75 mcg 0600 KAVIN Administration Ondansetron HCl 4 mg 03/14/18 23:32 03/15/18 00:14 Zofran Inj IVP 4 mg Q6H PRN Administration Nausea/Vomiting Pantoprazole Sodium 40 mg 03/18/18 10:00 03/20/18 09:51 Protonix Inj IVP 40 mg DAILY KAVIN Administration Spironolactone 100 mg 03/12/18 10:00 03/20/18 09:49 Aldactone PO 100 mg DAILY KAVIN Administration Sucralfate 1 gm 03/14/18 16:00 03/20/18 06:10 Carafate Tab PO 1 gm 0600,1600 KAVIN Administration - Patient Studies Lab Studies: Lab Studies 03/20/18 03/20/18 03/20/18 Range/Units 07:59 06:21 05:59 WBC (4.5-11.0) 10^3/ul RBC (3.5-6.1) 10^6/uL Hgb (14.0-18.0) g/dL Hct (42.0-52.0) % MCV (80.0-105.0) fl MCH (25.0-35.0) pg MCHC (31.0-37.0) g/dl RDW (11.5-14.5) % Plt Count (120.0-450.0) 10^3/uL MPV (7.0-11.0) fl Sodium (132-148) mmol/L Potassium (3.6-5.0) mmol/L Chloride (98-107) mmol/L Carbon Dioxide (21-33) mmol/L Anion Gap (10-20) BUN (7-21) mg/dL Creatinine (0.8-1.5) mg/dl Est GFR ( Amer) Est GFR (Non-Af Amer) POC Glucose (mg/dL) 157 H 226 H 157 H (65-110) mg/dL Random Glucose (70-110) mg/dL Calcium (8.4-10.5) mg/dL Total Bilirubin (0.2-1.3) mg/dL AST (17-59) U/L ALT (7-56) U/L Alkaline Phosphatase (38-126) U/L Total Protein (5.8-8.3) g/dL Albumin (3.0-4.8) g/dL Globulin gm/dL Albumin/Globulin Ratio (1.1-1.8) 03/20/18 03/20/18 03/20/18 Range/Units 05:24 05:20 05:20 WBC 4.3 L (4.5-11.0) 10^3/ul RBC 3.86 (3.5-6.1) 10^6/uL Hgb 11.2 L (14.0-18.0) g/dL Hct 34.8 L (42.0-52.0) % MCV 90.2 (80.0-105.0) fl MCH 29.0 (25.0-35.0) pg MCHC 32.2 (31.0-37.0) g/dl RDW 18.3 H (11.5-14.5) % Plt Count 38 L* (120.0-450.0) 10^3/uL MPV 10.1 (7.0-11.0) fl Sodium 159 H* (132-148) mmol/L Potassium 3.7 (3.6-5.0) mmol/L Chloride 123 H (98-107) mmol/L Carbon Dioxide 24 (21-33) mmol/L Anion Gap 15 (10-20) BUN 34 H (7-21) mg/dL Creatinine 0.7 L (0.8-1.5) mg/dl Est GFR ( Amer) > 60 Est GFR (Non-Af Amer) > 60 POC Glucose (mg/dL) 219 H (65-110) mg/dL Random Glucose 171 H (70-110) mg/dL Calcium 8.6 (8.4-10.5) mg/dL Total Bilirubin 10.9 H (0.2-1.3) mg/dL AST 68 H (17-59) U/L ALT 44 (7-56) U/L Alkaline Phosphatase 130 H (38-126) U/L Total Protein 5.9 (5.8-8.3) g/dL Albumin 2.3 L (3.0-4.8) g/dL Globulin 3.6 gm/dL Albumin/Globulin Ratio 0.6 L (1.1-1.8) 03/20/18 03/20/18 03/19/18 Range/Units 03:05 00:05 23:11 WBC (4.5-11.0) 10^3/ul RBC (3.5-6.1) 10^6/uL Hgb (14.0-18.0) g/dL Hct (42.0-52.0) % MCV (80.0-105.0) fl MCH (25.0-35.0) pg MCHC (31.0-37.0) g/dl RDW (11.5-14.5) % Plt Count (120.0-450.0) 10^3/uL MPV (7.0-11.0) fl Sodium (132-148) mmol/L Potassium (3.6-5.0) mmol/L Chloride (98-107) mmol/L Carbon Dioxide (21-33) mmol/L Anion Gap (10-20) BUN (7-21) mg/dL Creatinine (0.8-1.5) mg/dl Est GFR ( Amer) Est GFR (Non-Af Amer) POC Glucose (mg/dL) 173 H 208 H 210 H (65-110) mg/dL Random Glucose (70-110) mg/dL Calcium (8.4-10.5) mg/dL Total Bilirubin (0.2-1.3) mg/dL AST (17-59) U/L ALT (7-56) U/L Alkaline Phosphatase (38-126) U/L Total Protein (5.8-8.3) g/dL Albumin (3.0-4.8) g/dL Globulin gm/dL Albumin/Globulin Ratio (1.1-1.8) 03/19/18 03/19/18 03/19/18 Range/Units 20:15 17:59 16:05 WBC (4.5-11.0) 10^3/ul RBC (3.5-6.1) 10^6/uL Hgb (14.0-18.0) g/dL Hct (42.0-52.0) % MCV (80.0-105.0) fl MCH (25.0-35.0) pg MCHC (31.0-37.0) g/dl RDW (11.5-14.5) % Plt Count (120.0-450.0) 10^3/uL MPV (7.0-11.0) fl Sodium (132-148) mmol/L Potassium (3.6-5.0) mmol/L Chloride (98-107) mmol/L Carbon Dioxide (21-33) mmol/L Anion Gap (10-20) BUN (7-21) mg/dL Creatinine (0.8-1.5) mg/dl Est GFR ( Amer) Est GFR (Non-Af Amer) POC Glucose (mg/dL) 270 H 215 H 248 H (65-110) mg/dL Random Glucose (70-110) mg/dL Calcium (8.4-10.5) mg/dL Total Bilirubin (0.2-1.3) mg/dL AST (17-59) U/L ALT (7-56) U/L Alkaline Phosphatase (38-126) U/L Total Protein (5.8-8.3) g/dL Albumin (3.0-4.8) g/dL Globulin gm/dL Albumin/Globulin Ratio (1.1-1.8) 03/19/18 03/19/18 03/19/18 Range/Units 14:23 14:07 13:13 WBC (4.5-11.0) 10^3/ul RBC (3.5-6.1) 10^6/uL Hgb (14.0-18.0) g/dL Hct (42.0-52.0) % MCV (80.0-105.0) fl MCH (25.0-35.0) pg MCHC (31.0-37.0) g/dl RDW (11.5-14.5) % Plt Count (120.0-450.0) 10^3/uL MPV (7.0-11.0) fl Sodium (132-148) mmol/L Potassium (3.6-5.0) mmol/L Chloride (98-107) mmol/L Carbon Dioxide (21-33) mmol/L Anion Gap (10-20) BUN (7-21) mg/dL Creatinine (0.8-1.5) mg/dl Est GFR ( Amer) Est GFR (Non-Af Amer) POC Glucose (mg/dL) 244 H 275 H 253 H (65-110) mg/dL Random Glucose (70-110) mg/dL Calcium (8.4-10.5) mg/dL Total Bilirubin (0.2-1.3) mg/dL AST (17-59) U/L ALT (7-56) U/L Alkaline Phosphatase (38-126) U/L Total Protein (5.8-8.3) g/dL Albumin (3.0-4.8) g/dL Globulin gm/dL Albumin/Globulin Ratio (1.1-1.8) 03/19/18 Range/Units 12:30 WBC (4.5-11.0) 10^3/ul RBC (3.5-6.1) 10^6/uL Hgb (14.0-18.0) g/dL Hct (42.0-52.0) % MCV (80.0-105.0) fl MCH (25.0-35.0) pg MCHC (31.0-37.0) g/dl RDW (11.5-14.5) % Plt Count (120.0-450.0) 10^3/uL MPV (7.0-11.0) fl Sodium (132-148) mmol/L Potassium (3.6-5.0) mmol/L Chloride (98-107) mmol/L Carbon Dioxide (21-33) mmol/L Anion Gap (10-20) BUN (7-21) mg/dL Creatinine (0.8-1.5) mg/dl Est GFR ( Amer) Est GFR (Non-Af Amer) POC Glucose (mg/dL) 239 H (65-110) mg/dL Random Glucose (70-110) mg/dL Calcium (8.4-10.5) mg/dL Total Bilirubin (0.2-1.3) mg/dL AST (17-59) U/L ALT (7-56) U/L Alkaline Phosphatase (38-126) U/L Total Protein (5.8-8.3) g/dL Albumin (3.0-4.8) g/dL Globulin gm/dL Albumin/Globulin Ratio (1.1-1.8) Laboratory Results - last 24 hr 03/19/18 03/19/18 03/19/18 12:30 13:13 14:07 WBC RBC Hgb Hct MCV MCH MCHC RDW Plt Count MPV Sodium Potassium Chloride Carbon Dioxide Anion Gap BUN Creatinine Est GFR ( Amer) Est GFR (Non-Af Amer) POC Glucose (mg/dL) 239 H 253 H 275 H Random Glucose Calcium Total Bilirubin AST ALT Alkaline Phosphatase Total Protein Albumin Globulin Albumin/Globulin Ratio 03/19/18 03/19/18 03/19/18 14:23 16:05 17:59 WBC RBC Hgb Hct MCV MCH MCHC RDW Plt Count MPV Sodium Potassium Chloride Carbon Dioxide Anion Gap BUN Creatinine Est GFR ( Amer) Est GFR (Non-Af Amer) POC Glucose (mg/dL) 244 H 248 H 215 H Random Glucose Calcium Total Bilirubin AST ALT Alkaline Phosphatase Total Protein Albumin Globulin Albumin/Globulin Ratio 03/19/18 03/19/18 03/20/18 20:15 23:11 00:05 WBC RBC Hgb Hct MCV MCH MCHC RDW Plt Count MPV Sodium Potassium Chloride Carbon Dioxide Anion Gap BUN Creatinine Est GFR ( Amer) Est GFR (Non-Af Amer) POC Glucose (mg/dL) 270 H 210 H 208 H Random Glucose Calcium Total Bilirubin AST ALT Alkaline Phosphatase Total Protein Albumin Globulin Albumin/Globulin Ratio 03/20/18 03/20/18 03/20/18 03:05 05:20 05:20 WBC 4.3 L RBC 3.86 Hgb 11.2 L Hct 34.8 L MCV 90.2 MCH 29.0 MCHC 32.2 RDW 18.3 H Plt Count 38 L* MPV 10.1 Sodium 159 H* Potassium 3.7 Chloride 123 H Carbon Dioxide 24 Anion Gap 15 BUN 34 H Creatinine 0.7 L Est GFR ( Amer) > 60 Est GFR (Non-Af Amer) > 60 POC Glucose (mg/dL) 173 H Random Glucose 171 H Calcium 8.6 Total Bilirubin 10.9 H AST 68 H ALT 44 Alkaline Phosphatase 130 H Total Protein 5.9 Albumin 2.3 L Globulin 3.6 Albumin/Globulin Ratio 0.6 L 03/20/18 03/20/18 03/20/18 05:24 05:59 06:21 WBC RBC Hgb Hct MCV MCH MCHC RDW Plt Count MPV Sodium Potassium Chloride Carbon Dioxide Anion Gap BUN Creatinine Est GFR ( Amer) Est GFR (Non-Af Amer) POC Glucose (mg/dL) 219 H 157 H 226 H Random Glucose Calcium Total Bilirubin AST ALT Alkaline Phosphatase Total Protein Albumin Globulin Albumin/Globulin Ratio 03/20/18 07:59 WBC RBC Hgb Hct MCV MCH MCHC RDW Plt Count MPV Sodium Potassium Chloride Carbon Dioxide Anion Gap BUN Creatinine Est GFR ( Amer) Est GFR (Non-Af Amer) POC Glucose (mg/dL) 157 H Random Glucose Calcium Total Bilirubin AST ALT Alkaline Phosphatase Total Protein Albumin Globulin Albumin/Globulin Ratio Fingerstick Blood Sugar Results: 161 Critical Care Progress Note - Nutrition Nutrition: Nutrition Category Date Time Status NPO Diet [DIET] Diets 03/15/18 Breakfast Ordered Assessment/Plan - Assessment and Plan (Free Text) Assessment: 62 year old male with a PMH of end stage liver disease, Hep C, Cirrhosis, DM, non compliance, admitted with devastating L IPH now with ZAC. Plan: Neurologic Neurosurgery and neurology recs appreciated, no surgical intevention Off mannitol and 3% saline, still maintaining hypernatremic state Cont cohen-precautions Cont keppra Palliative care following Cardiovascular Maintain MAP>65 HD stable Pulmnologic Intubated for airway protection, now tolerating T piece Off sedation Plan for trach placement Maintain sat > 92% Gastrointestinal NPO OG tube has been showing some output and has not had BM for 3 days, fleet enema yesterday didn't assist, will given dulcolax RC Plan for PEG/G tube placement, GI and surgery following MELD 23 Renal Continues making appropriate urine No acute issues Infectious disease Having fevers, likely central Cont cooling blanket and PRN ofirmev Monitoring Endocrinologic Continue levothyroxine 75mcg Hx of DM, cont ISS and accuchecks Cont insulin gtt GI/DVT ppx: Protonix, 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) Dispo: pending Trach/PEG or G tube insertion, family continues to want aggressive care. SOFA 11 Patient was seen and examined and case was discussed at length with attending physician - Date & Time Date: 03/20/18 Time: 07:00 <Guillermo Sanchez - Last Filed: 03/20/18 16:07> CCU Objective - Vital Signs / Intake & Output Vital Signs (Last 4 hours): Vital Signs Pulse BP Pulse Ox 03/20/18 15:00 135/66 03/20/18 14:59 90 100 03/20/18 14:00 94 H 127/63 100 03/20/18 13:00 124/66 03/20/18 12:59 95 H 100 Intake and Output (Last 8hrs): Intake & Output 03/20/18 03/20/18 03/20/18 06:59 14:59 22:59 Intake Total 200.5 4 Output Total 600 Balance -399.5 4 Weight 146 lb 146 lb Intake: IV 200.5 4 Insulin drip 140 Oral 0 Output: Urine 600 Urethral (Serna) 600 - Medications Active Medications: Active Medications Generic Name Dose Route Start Last Admin Trade Name Freq PRN Reason Stop Dose Admin Sodium Chloride 500 mls @ 30 mls/hr 03/15/18 09:45 03/15/18 10:50 Hypertonic Saline 3% IV 30 mls/hr .[id number] KAVIN Administration Levetiracetam 500 mg in 100 mls @ 400 mls/hr 03/15/18 12:00 03/20/18 09:51 Keppra 500mg Ivpb IV 400 mls/hr Q12 KAVIN Administration Insulin Human Regular 100 100 mls @ 2 mls/hr 03/17/18 07:59 03/20/18 08:17 units/ Sodium Chloride IV 1.5 units/hr .Q24H PRN 1.5 mls/hr TITRATE PER MD ORDER Titration Protocol 2 UNITS/HR Multivitamins/Vitamin C 10 ml/ 1,010 mls @ 100 mls/hr 03/20/18 10:15 11:38 Dextrose IV 100 mls/hr DAILY KAVIN Administration Insulin Human Lispro 0 units 03/13/18 11:30 03/17/18 08:59 Humalog High SC Not Given ACHS KAVIN Protocol Insulin Lispro Protam/Lispro Human 15 units 03/14/18 16:30 03/17/18 08:59 Humalog Mix 75/25 SC Not Given BIDAC [facility] Labetalol HCl 10 mg 03/15/18 03:08 Trandate IV Q4 PRN Blood Pressure 220/110 & above Lactulose 30 gm 03/13/18 10:00 03/19/18 14:03 Enulose PO 30 gm TID KAVIN Administration Levothyroxine Sodium 75 mcg 03/17/18 09:51 03/20/18 06:10 Synthroid PO 75 mcg 0600 KAVIN Administration Ondansetron HCl 4 mg 03/14/18 23:32 03/15/18 00:14 Zofran Inj IVP 4 mg Q6H PRN Administration Nausea/Vomiting Pantoprazole Sodium 40 mg 03/18/18 10:00 03/20/18 09:51 Protonix Inj IVP 40 mg DAILY KAVIN Administration Spironolactone 100 mg 03/12/18 10:00 03/20/18 09:49 Aldactone PO 100 mg DAILY KAVIN Administration Sucralfate 1 gm 03/14/18 16:00 03/20/18 06:10 Carafate Tab PO 1 gm 0600,1600 KAVIN Administration - Patient Studies Lab Studies: Microbiology Studies 03/20/18 07:47 Gram Stain - Final Sputum Lab Studies 03/20/18 03/20/18 03/20/18 Range/Units 07:59 06:21 05:59 WBC (4.5-11.0) 10^3/ul RBC (3.5-6.1) 10^6/uL Hgb (14.0-18.0) g/dL Hct (42.0-52.0) % MCV (80.0-105.0) fl MCH (25.0-35.0) pg MCHC (31.0-37.0) g/dl RDW (11.5-14.5) % Plt Count (120.0-450.0) 10^3/uL MPV (7.0-11.0) fl Sodium (132-148) mmol/L Potassium (3.6-5.0) mmol/L Chloride (98-107) mmol/L Carbon Dioxide (21-33) mmol/L Anion Gap (10-20) BUN (7-21) mg/dL Creatinine (0.8-1.5) mg/dl Est GFR ( Amer) Est GFR (Non-Af Amer) POC Glucose (mg/dL) 157 H 226 H 157 H (65-110) mg/dL Random Glucose (70-110) mg/dL Calcium (8.4-10.5) mg/dL Total Bilirubin (0.2-1.3) mg/dL AST (17-59) U/L ALT (7-56) U/L Alkaline Phosphatase (38-126) U/L Total Protein (5.8-8.3) g/dL Albumin (3.0-4.8) g/dL Globulin gm/dL Albumin/Globulin Ratio (1.1-1.8) 03/20/18 03/20/18 03/20/18 Range/Units 05:24 05:20 05:20 WBC 4.3 L (4.5-11.0) 10^3/ul RBC 3.86 (3.5-6.1) 10^6/uL Hgb 11.2 L (14.0-18.0) g/dL Hct 34.8 L (42.0-52.0) % MCV 90.2 (80.0-105.0) fl MCH 29.0 (25.0-35.0) pg MCHC 32.2 (31.0-37.0) g/dl RDW 18.3 H (11.5-14.5) % Plt Count 38 L* (120.0-450.0) 10^3/uL MPV 10.1 (7.0-11.0) fl Sodium 159 H* (132-148) mmol/L Potassium 3.7 (3.6-5.0) mmol/L Chloride 123 H (98-107) mmol/L Carbon Dioxide 24 (21-33) mmol/L Anion Gap 15 (10-20) BUN 34 H (7-21) mg/dL Creatinine 0.7 L (0.8-1.5) mg/dl Est GFR ( Amer) > 60 Est GFR (Non-Af Amer) > 60 POC Glucose (mg/dL) 219 H (65-110) mg/dL Random Glucose 171 H (70-110) mg/dL Calcium 8.6 (8.4-10.5) mg/dL Total Bilirubin 10.9 H (0.2-1.3) mg/dL AST 68 H (17-59) U/L ALT 44 (7-56) U/L Alkaline Phosphatase 130 H (38-126) U/L Total Protein 5.9 (5.8-8.3) g/dL Albumin 2.3 L (3.0-4.8) g/dL Globulin 3.6 gm/dL Albumin/Globulin Ratio 0.6 L (1.1-1.8) 03/20/18 03/20/18 03/19/18 Range/Units 03:05 00:05 23:11 WBC (4.5-11.0) 10^3/ul RBC (3.5-6.1) 10^6/uL Hgb (14.0-18.0) g/dL Hct (42.0-52.0) % MCV (80.0-105.0) fl MCH (25.0-35.0) pg MCHC (31.0-37.0) g/dl RDW (11.5-14.5) % Plt Count (120.0-450.0) 10^3/uL MPV (7.0-11.0) fl Sodium (132-148) mmol/L Potassium (3.6-5.0) mmol/L Chloride (98-107) mmol/L Carbon Dioxide (21-33) mmol/L Anion Gap (10-20) BUN (7-21) mg/dL Creatinine (0.8-1.5) mg/dl Est GFR ( Amer) Est GFR (Non-Af Amer) POC Glucose (mg/dL) 173 H 208 H 210 H (65-110) mg/dL Random Glucose (70-110) mg/dL Calcium (8.4-10.5) mg/dL Total Bilirubin (0.2-1.3) mg/dL AST (17-59) U/L ALT (7-56) U/L Alkaline Phosphatase (38-126) U/L Total Protein (5.8-8.3) g/dL Albumin (3.0-4.8) g/dL Globulin gm/dL Albumin/Globulin Ratio (1.1-1.8) 03/19/18 03/19/18 03/19/18 Range/Units 20:15 17:59 16:05 WBC (4.5-11.0) 10^3/ul RBC (3.5-6.1) 10^6/uL Hgb (14.0-18.0) g/dL Hct (42.0-52.0) % MCV (80.0-105.0) fl MCH (25.0-35.0) pg MCHC (31.0-37.0) g/dl RDW (11.5-14.5) % Plt Count (120.0-450.0) 10^3/uL MPV (7.0-11.0) fl Sodium (132-148) mmol/L Potassium (3.6-5.0) mmol/L Chloride (98-107) mmol/L Carbon Dioxide (21-33) mmol/L Anion Gap (10-20) BUN (7-21) mg/dL Creatinine (0.8-1.5) mg/dl Est GFR ( Amer) Est GFR (Non-Af Amer) POC Glucose (mg/dL) 270 H 215 H 248 H (65-110) mg/dL Random Glucose (70-110) mg/dL Calcium (8.4-10.5) mg/dL Total Bilirubin (0.2-1.3) mg/dL AST (17-59) U/L ALT (7-56) U/L Alkaline Phosphatase (38-126) U/L Total Protein (5.8-8.3) g/dL Albumin (3.0-4.8) g/dL Globulin gm/dL Albumin/Globulin Ratio (1.1-1.8) Laboratory Results - last 24 hr 03/19/18 03/19/18 03/19/18 16:05 17:59 20:15 WBC RBC Hgb Hct MCV MCH MCHC RDW Plt Count MPV Sodium Potassium Chloride Carbon Dioxide Anion Gap BUN Creatinine Est GFR ( Amer) Est GFR (Non-Af Amer) POC Glucose (mg/dL) 248 H 215 H 270 H Random Glucose Calcium Total Bilirubin AST ALT Alkaline Phosphatase Total Protein Albumin Globulin Albumin/Globulin Ratio 03/19/18 03/20/18 03/20/18 23:11 00:05 03:05 WBC RBC Hgb Hct MCV MCH MCHC RDW Plt Count MPV Sodium Potassium Chloride Carbon Dioxide Anion Gap BUN Creatinine Est GFR ( Amer) Est GFR (Non-Af Amer) POC Glucose (mg/dL) 210 H 208 H 173 H Random Glucose Calcium Total Bilirubin AST ALT Alkaline Phosphatase Total Protein Albumin Globulin Albumin/Globulin Ratio 03/20/18 03/20/18 03/20/18 05:20 05:20 05:24 WBC 4.3 L RBC 3.86 Hgb 11.2 L Hct 34.8 L MCV 90.2 MCH 29.0 MCHC 32.2 RDW 18.3 H Plt Count 38 L* MPV 10.1 Sodium 159 H* Potassium 3.7 Chloride 123 H Carbon Dioxide 24 Anion Gap 15 BUN 34 H Creatinine 0.7 L Est GFR ( Amer) > 60 Est GFR (Non-Af Amer) > 60 POC Glucose (mg/dL) 219 H Random Glucose 171 H Calcium 8.6 Total Bilirubin 10.9 H AST 68 H ALT 44 Alkaline Phosphatase 130 H Total Protein 5.9 Albumin 2.3 L Globulin 3.6 Albumin/Globulin Ratio 0.6 L 03/20/18 03/20/18 03/20/18 05:59 06:21 07:59 WBC RBC Hgb Hct MCV MCH MCHC RDW Plt Count MPV Sodium Potassium Chloride Carbon Dioxide Anion Gap BUN Creatinine Est GFR ( Amer) Est GFR (Non-Af Amer) POC Glucose (mg/dL) 157 H 226 H 157 H Random Glucose Calcium Total Bilirubin AST ALT Alkaline Phosphatase Total Protein Albumin Globulin Albumin/Globulin Ratio Critical Care Progress Note - Nutrition Nutrition: Nutrition Category Date Time Status NPO Diet [DIET] Diets 03/15/18 Breakfast Ordered Attending/Attestation - Attestation I have personally seen and examined this patient.: Yes I have fully participated in the care of the patient.: Yes I have reviewed all pertinent clinical information: Yes Notes (Text): 03/20/18 16:02 62 yo male with devastating ICH with ZAC, intubated for airway protection on T- piece now, 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 Trach, peg? on saturday. Hemodyanmically and respiratory jones stable. Na is creaping up, will start slow D5 as patient appears to have ileus (high NG output, distended abdo, despite having BM today after manual disimpaction) and enteral route for free water is non-reliable. oral hygiene, HOB>35. Again lengthy discussion with family about prognosis in the presence of Dr. Bobby. DVT/GI prophyalxis. ccm time 40 min
[2018-03-20] MEDS: Multivitamin (MVI) 10 ML in Dextrose 5% In Water 1,000 ML IV SCH (17:40)
[2018-03-20] MEDS ORDERED: Sucralfate 1 gm/10 ml Oral Susp UD PO SCH (17:44)
[2018-03-20] MEDS: Sucralfate 1 gm/10 ml Oral Susp UD PO SCH (18:00)
[2018-03-21] MEDS: Multivitamin (MVI) 10 ML in Dextrose 5% In Water 1,000 ML IV SCH ×2 (00:55→14:54)
--- NOTE | 2018-03-21 01:39 | CON ---
DATE: Dilan Feng was examined in ICU bed 3. He has had a stormy course of encephalopathy, admitted on 03/11/2018, with a history of hepatitis C, cirrhosis, inguinal hernias, diabetes. He now is neurologically unresponsive and the consult is for tracheostomy and feeding gastrostomy. He was seen by GI who declined a PEG, who plan to do this on Saturday. I have recently been informed that has been consulted for the tracheostomy. We will try to do this as a teamed effort, having corrected the metabolic factors including platelet count of 38,000 and a PT of 27. There is no urgency to do this, as I can see, and might be delayed even beyond Saturday. Brenton Liriano MD
[2018-03-21] MEDS: Levothyroxine 75 MCG TAB PO SCH (06:08)
[2018-03-21] MEDS: Sucralfate 1 gm/10 ml Oral Susp UD PO SCH ×2 (06:11→16:16)
[2018-03-21 06:32] LABS: HEMOGLOBIN 11.3 g/dL (14.0-18.0); MEAN CORPUSCULAR HEMOGLOBIN 29.1 pg (25.0-35.0); MEAN PLATELET VOLUME 10.4 fl (7.0-11.0); RBC 3.88 10^6/uL (3.5-6.1); RED CELL DISTRIBUTION WIDTH 18.4 % (11.5-14.5); WHITE BLOOD COUNT 5.1 10^3/ul (4.5-11.0)
[2018-03-21 06:58] LABS: INR 2.05 (0.93-1.08); PROTHROMBIN TIME 23.9 SECONDS (9.4-12.5)
[2018-03-21 06:59] LABS: PARTIAL THROMBOPLASTIN TIME 37.6 Seconds (25.1-36.5)
--- NOTE | 2018-03-21 07:08 | PN ---
DATE: 03/21/2018 SUBJECTIVE: I reviewed the clinical course of Mr. Feng with the house staff yesterday. They informed me of most recent events going on in the unit as well as they are expressing concern about his small and large bowel ileus. The issue was also regarding feeding tube insertion. I related to the house staff that given the patient's current clinical circumstances, I really had not much to offer for this particular case. I reviewed the notes. Reviewed EEG report indicating abnormal indicating possible seizures as well as slow background. Dr. Sanchez's note reviewed as well and according to his note, the patient is still opting for aggressive care. Had discussions with house staff on several occasions, there is not much me for to offer. I do not feel this patient is a candidate for endoscopic placement of PEG tube. I will sign off the case at the current time point. Oliver Chery DO, PhD MTDD
[2018-03-21 07:12] LABS: ALB/GLOB RATIO 0.6 (1.1-1.8); ALBUMIN 2.2 g/dL (3.0-4.8); ALT/SGPT 46 U/L (7-56); AST/SGOT 70 U/L (17-59); BLOOD UREA NITROGEN 27 mg/dL (7-21); CALCIUM 8.2 mg/dL (8.4-10.5); GFR AFRICAN-AMERICAN > 60; GFR NON-AFRICAN AMERICAN > 60
--- NOTE | 2018-03-21 08:18 | CP.PCM.PN ---
<Jacinto Lea - Last Filed: 03/21/18 11:25> Subjective - Date & Time of Evaluation Date of Evaluation: 03/21/18 Time of Evaluation: 07:00 - Subjective Subjective: Medicine Note for Dr. Flores Patient seen and examined in ICU. No acute overnight overnight. He is intubated and on pressure support. He does not respond to any stimuli. Patient has poor prognosis. Plan is for Trach and g tube on Saturday 03/24. Patient will need to be medically optimized with platelets, FFP, and vitamin k prior to procedure. Objective - Vital Signs/Intake and Output Vital Signs (last 24 hours): Temp Pulse Resp BP Pulse Ox 98.6 F 76 15 138/93 H 100 03/21/18 04:00 03/21/18 06:01 03/19/18 16:00 03/21/18 06:01 03/21/18 06:01 Intake and Output: 03/21/18 03/21/18 06:59 18:59 Intake Total 1092.5 Output Total 500 Balance 592.5 - Medications Medications: Current Medications Sodium Chloride (Hypertonic Saline 3%) 500 mls @ 30 mls/hr IV .[id number] [facility] Last Admin: 03/15/18 10:50 Dose: 30 mls/hr Levetiracetam (Keppra 500mg Ivpb) 500 mg in 100 mls @ 400 mls/hr IV Q12 [facility] Last Admin: 03/20/18 21:54 Dose: 400 mls/hr Insulin Human Regular 100 (units/ Sodium Chloride) 100 mls @ 2 mls/hr IV .Q24H PRN; Protocol; 2 UNITS/HR PRN Reason: TITRATE PER MD ORDER Last Titration: 03/21/18 04:43 Dose: 2 units/hr, 2 mls/hr Multivitamins/Vitamin C 10 ml/ (Dextrose) 1,010 mls @ 75 mls/hr IV .[id number] [facility] Last Admin: 03/21/18 00:55 Dose: 75 mls/hr Insulin Human Lispro (Humalog High) 0 units SC ACHS [facility] PRN Reason: Protocol Last Admin: 03/17/18 08:59 Dose: Not Given Insulin Lispro Protam/Lispro Human (Humalog Mix 75/25) 15 units SC BIDAC [facility] Last Admin: 03/17/18 08:59 Dose: Not Given Labetalol HCl (Trandate) 10 mg IV Q4 PRN PRN Reason: Blood Pressure 220/110 & above Lactulose (Enulose) 30 gm PO TID [facility] Last Admin: 03/20/18 17:41 Dose: 30 gm Levothyroxine Sodium (Synthroid) 75 mcg PO 0600 [facility] Last Admin: 03/21/18 06:08 Dose: 75 mcg Ondansetron HCl (Zofran Inj) 4 mg IVP Q6H PRN PRN Reason: Nausea/Vomiting Last Admin: 03/15/18 00:14 Dose: 4 mg Pantoprazole Sodium (Protonix Inj) 40 mg IVP DAILY [facility] Last Admin: 03/20/18 09:51 Dose: 40 mg Sucralfate (Carafate Oral Susp) 1 gm PO 0600,1600 [facility] Last Admin: 03/21/18 06:11 Dose: 1 gm - Labs Labs: 03/21/18 06:20 03/21/18 06:20 PT 23.9 SECONDS (9.4-12.5) H 03/21/18 06:20 INR 2.05 (0.93-1.08) H 03/21/18 06:20 APTT 37.6 Seconds (25.1-36.5) H 03/21/18 06:20 - Constitutional Appears: No Acute Distress, Chronically Ill - Eye Exam Eye Exam: Scleral icterus - ENT Exam ENT Exam: Mucous Membranes Dry - Respiratory Exam Additional comments: intubated on pressure support - Cardiovascular Exam Cardiovascular Exam: REGULAR RHYTHM - GI/Abdominal Exam GI & Abdominal Exam: Distended, Soft, Normal Bowel Sounds - Neurological Exam Neurological Exam: Altered - Psychiatric Exam Psychiatric exam: Flat Affect - Skin Skin Exam: Dry, Warm Assessment and Plan - Assessment and Plan (Free Text) Assessment: 62 M with PMH of end stage liver disease, Hep C, Cirrhosis, DM, non-compliance, intubated in the ICU with SAH/CVA. Overall, patient has poor prognosis Neuro (55) Head CT showed massive hemorrhage in left partietal lobe extending to cortical surface with 11mm of midline shift (6) head CT showed new subarachnoid hemorrhage over the right hemisphere Neurosurgery consult, no surgical intervention, poor prognosis Neurology consult, help appreciated keppra lactulose and rifaximin Palliative care consult HOB 30 degrees Cardio Maintain MAP>65 Tachycardic Labetalol PRN Pulm Intubated and on pressure support Maintain sat > 90% Gen surg and ENT consult for Tracheostomy GI NPO Continue sucralfate GI consult for PEG tube Gen surg consult for g tube Renal Strict I's & O's Monitor Urine output Aldactone ID febrile cooling blanket ofirmev Monitor Endo Synthroid 75 Insulin drip Maintain euglycemia 140-180 GI/DVT ppx: Protonix, no chemical anticoagulation Dispo: Plan for Trach and PEG placement. Will need to be optimized medically. Discussed with Dr. Sandra Lea PGY1 <Chetna Flores - Last Filed: 03/22/18 12:43> Objective - Vital Signs/Intake and Output Vital Signs (last 24 hours): Temp Pulse Resp BP Pulse Ox 97.1 F L 99 H 19 130/64 98 03/22/18 08:00 03/22/18 11:00 03/22/18 01:59 03/22/18 11:00 03/22/18 11:00 Intake and Output: 03/22/18 03/22/18 06:59 18:59 Intake Total 1050 Output Total 220 Balance 830 - Medications Medications: Current Medications Sodium Chloride (Hypertonic Saline 3%) 500 mls @ 30 mls/hr IV .[id number] [facility] Last Admin: 03/15/18 10:50 Dose: 30 mls/hr Levetiracetam (Keppra 500mg Ivpb) 500 mg in 100 mls @ 400 mls/hr IV Q12 [facility] Last Admin: 03/22/18 09:05 Dose: 400 mls/hr Multivitamins/Vitamin C 10 ml/ (Dextrose) 1,010 mls @ 75 mls/hr IV .[id number] [facility] Last Admin: 03/22/18 06:18 Dose: 75 mls/hr Insulin Human Regular 100 (units/ Sodium Chloride) 100 mls @ 1 mls/hr IV .Q24H PRN; Protocol; 1 UNITS/HR PRN Reason: TITRATE PER MD ORDER Last Titration: 03/22/18 05:00 Dose: 2 units/hr, 2 mls/hr Insulin Human Lispro (Humalog High) 0 units SC ACHS [facility] PRN Reason: Protocol Last Admin: 03/17/18 08:59 Dose: Not Given Insulin Lispro Protam/Lispro Human (Humalog Mix 75/25) 15 units SC BIDAC [facility] Last Admin: 03/17/18 08:59 Dose: Not Given Labetalol HCl (Trandate) 10 mg IV Q4 PRN PRN Reason: Blood Pressure 220/110 & above Lactulose (Enulose) 30 gm PO TID [facility] Last Admin: 03/22/18 09:04 Dose: 30 gm Levothyroxine Sodium (Synthroid) 75 mcg PO 0600 [facility] Last Admin: 03/22/18 05:04 Dose: 75 mcg Ondansetron HCl (Zofran Inj) 4 mg IVP Q6H PRN PRN Reason: Nausea/Vomiting Last Admin: 03/15/18 00:14 Dose: 4 mg Pantoprazole Sodium (Protonix Inj) 40 mg IVP DAILY [facility] Last Admin: 03/22/18 09:04 Dose: 40 mg Rifaximin (Xifaxan) 550 mg PO BID [facility] PRN Reason: Protocol Last Admin: 03/21/18 18:26 Dose: 550 mg Sucralfate (Carafate Oral Susp) 1 gm PO 0600,1600 [facility] Last Admin: 03/22/18 05:04 Dose: 1 gm - Labs Labs: 03/22/18 06:00 03/22/18 06:00 PT 23.9 SECONDS (9.4-12.5) H 03/21/18 06:20 INR 2.05 (0.93-1.08) H 03/21/18 06:20 APTT 37.6 Seconds (25.1-36.5) H 03/21/18 06:20 Attending/Attestation - Attestation I have personally seen and examined this patient.: Yes I have fully participated in the care of the patient.: Yes I have reviewed all pertinent clinical information, including history, physical exam and plan: Yes Notes (Text): I have seen and examined the patient at bedside. Agree with the above note. Patient's prognosis is guarded. Patients family is requesting for trach and peg which will be possibly on Saturday. Patient will need to be optimized prior to surgery. He is off of mannitol and hypertonic saline. He is tolerating T piece. Continue keppra, levothyroxine, lactulose and rifaxamin. Palliative care on board.
--- NOTE | 2018-03-21 10:35 | CP.PCM.PN ---
Subjective - Date & Time of Evaluation Date of Evaluation: 03/21/18 Time of Evaluation: 07:15 - Subjective Subjective: Surgery Progress note. Dr. Liriano Pt seen and examined at bedside. No acute events overnight. Still intubated and on T-Bar, off sedation. As per nursing staff, he has been had an episode of BM overnight, brown. Unable to perform 12-point ROS due to current patient condition. Objective - Vital Signs/Intake and Output Vital Signs (last 24 hours): Temp Pulse Resp BP Pulse Ox 98.6 F 76 15 138/93 H 100 03/21/18 04:00 03/21/18 06:01 03/19/18 16:00 03/21/18 06:01 03/21/18 06:01 Intake and Output: 03/21/18 03/21/18 06:59 18:59 Intake Total 1092.5 Output Total 500 Balance 592.5 - Medications Medications: Current Medications Sodium Chloride (Hypertonic Saline 3%) 500 mls @ 30 mls/hr IV .[id number] [facility] Last Admin: 03/15/18 10:50 Dose: 30 mls/hr Levetiracetam (Keppra 500mg Ivpb) 500 mg in 100 mls @ 400 mls/hr IV Q12 [facility] Last Admin: 03/20/18 21:54 Dose: 400 mls/hr Insulin Human Regular 100 (units/ Sodium Chloride) 100 mls @ 2 mls/hr IV .Q24H PRN; Protocol; 2 UNITS/HR PRN Reason: TITRATE PER MD ORDER Last Titration: 03/21/18 04:43 Dose: 2 units/hr, 2 mls/hr Multivitamins/Vitamin C 10 ml/ (Dextrose) 1,010 mls @ 75 mls/hr IV .[id number] [facility] Last Admin: 03/21/18 00:55 Dose: 75 mls/hr Insulin Human Lispro (Humalog High) 0 units SC ACHS [facility] PRN Reason: Protocol Last Admin: 03/17/18 08:59 Dose: Not Given Insulin Lispro Protam/Lispro Human (Humalog Mix 75/25) 15 units SC BIDAC [facility] Last Admin: 03/17/18 08:59 Dose: Not Given Labetalol HCl (Trandate) 10 mg IV Q4 PRN PRN Reason: Blood Pressure 220/110 & above Lactulose (Enulose) 30 gm PO TID [facility] Last Admin: 03/20/18 17:41 Dose: 30 gm Levothyroxine Sodium (Synthroid) 75 mcg PO 0600 [facility] Last Admin: 03/21/18 06:08 Dose: 75 mcg Ondansetron HCl (Zofran Inj) 4 mg IVP Q6H PRN PRN Reason: Nausea/Vomiting Last Admin: 03/15/18 00:14 Dose: 4 mg Pantoprazole Sodium (Protonix Inj) 40 mg IVP DAILY [facility] Last Admin: 03/20/18 09:51 Dose: 40 mg Rifaximin (Xifaxan) 550 mg PO BID [facility] PRN Reason: Protocol Sucralfate (Carafate Oral Susp) 1 gm PO 0600,1600 [facility] Last Admin: 03/21/18 06:11 Dose: 1 gm - Labs Labs: 03/21/18 06:20 03/21/18 06:20 PT 23.9 SECONDS (9.4-12.5) H 03/21/18 06:20 INR 2.05 (0.93-1.08) H 03/21/18 06:20 APTT 37.6 Seconds (25.1-36.5) H 03/21/18 06:20 - Constitutional Appears: Well, Non-toxic, No Acute Distress - Head Exam Head Exam: ATRAUMATIC, NORMAL INSPECTION, NORMOCEPHALIC - Eye Exam Eye Exam: EOMI, Normal appearance - ENT Exam ENT Exam: Mucous Membranes Moist - Respiratory Exam Respiratory Exam: NORMAL BREATHING PATTERN. absent: Accessory Muscle Use, Respiratory Distress Additional comments: Intubated and on T-Bar. Spontaneously breathing - Cardiovascular Exam Cardiovascular Exam: absent: JVD - GI/Abdominal Exam GI & Abdominal Exam: Soft. absent: Rebound - Extremities Exam Extremities Exam: Normal Inspection. absent: Calf Tenderness - Neurological Exam Additional comments: intubated off sedation. Assessment and Plan - Assessment and Plan (Free Text) Assessment: 62yo M with Large R parietal intraparenchymal hemorrhage with 11mm left-to- right midline shift. Surgery following for possible Trach and Gastrostomy placement. Plan: - patient will need to be optimized for surgery early next week for possible Trach and Gastrostomy. Will plan for 03/24/18 - Improve thrombocytopenia and coagulopathy. Vit K, Platelets and FFP as needed - Will need to be consented after family discussions Further recs as per Dr. Heri Cabral PGY1 surgery pager: [phone]
[2018-03-21] MEDS: levETIRAcetam 500mg IVPB 500 MG/100 ML BAG IV SCH ×2 (10:39→21:02)
--- NOTE | 2018-03-21 13:20 | CP.CCUPN ---
<Tommy Mcconnell - Last Filed: 03/21/18 13:16> CCU Subjective - Physician Review Subjective (Free Text): 03/21/18 13:16 Tommy Mcconnell D.O. PGY-2, Internal Medicine Resident, Critical Care Progress Note 62 year old male with a PMH of end stage liver disease, Hep C, Cirrhosis, DM, non compliance, admitted with devastating L IPH now with ZAC. Patient was seen and examined. Doing well on T piece. Neurologically unchanged. No overnight events. CCU Objective - Vital Signs / Intake & Output Vital Signs (Last 4 hours): Vital Signs Temp Pulse BP Pulse Ox 03/21/18 13:00 90 139/64 99 03/21/18 12:00 97.9 F 89 141/65 99 03/21/18 11:00 94 H 135/66 96 03/21/18 10:55 94 H 134/60 96 03/21/18 10:00 86 100 Intake and Output (Last 8hrs): Intake & Output 03/20/18 03/21/18 03/21/18 22:59 06:59 14:59 Intake Total 1291.5 1056 Output Total 500 500 Balance 791.5 556 Weight 66.224 kg Intake: IV 1171.5 1056 Insulin drip 19 936 Left Forearm 1000 keppra 100 100 Oral 120 Output: Gastric Amount 50 Stomach 50 Urine 450 350 Urethral (Serna) 450 350 Other 150 Other: # Bowel Movements 1 1 - Physical Exam Head: Positive for: Atraumatic, Normocephalic Pupils: Positive for: Other (2mm non-responsive) Extroacular Muscles: Positive for: EOMI Conjunctiva: Positive for: Normal. Negative for: Injected Ears: Positive for: Normal Mouth: Positive for: Moist Mucous Membranes, Other (intubated) Nose (External): Positive for: Atraumatic Neck: Positive for: Trachea Midline Respiratory/Chest: Positive for: Decreased Breath Sounds, Other (intubated) Cardiovascular: Positive for: Regular Rate and Rhythm, Normal S1, S2. Negative for: Murmurs, Tachycardic Abdomen: Positive for: Normal Bowel Sounds. Negative for: Tenderness, Distention, Peritoneal Signs, Rebound, Guarding, Mass/Organomegaly Back: Positive for: Normal Inspection Upper Extremity: Positive for: Normal Inspection. Negative for: Cyanosis, Edema Lower Extremity: Positive for: Normal Inspection, NORMAL PULSES. Negative for: Edema, CALF TENDERNESS Neurological: Positive for: Other (GCS 3, gag present, no corneal reflex, triple flexor present) Skin: Positive for: Warm, Dry, Normal Color. Negative for: Rashes Psychiatric: Positive for: Other (altered) - Medications Active Medications: Active Medications Generic Name Dose Route Start Last Admin Trade Name Freq PRN Reason Stop Dose Admin Sodium Chloride 500 mls @ 30 mls/hr 03/15/18 09:45 03/15/18 10:50 Hypertonic Saline 3% IV 30 mls/hr .[id number] KAVIN Administration Levetiracetam 500 mg in 100 mls @ 400 mls/hr 03/15/18 12:00 03/21/18 10:39 Keppra 500mg Ivpb IV 400 mls/hr Q12 KAVIN Administration Insulin Human Regular 100 100 mls @ 2 mls/hr 03/17/18 07:59 03/21/18 04:43 units/ Sodium Chloride IV 2 units/hr .Q24H PRN 2 mls/hr TITRATE PER MD ORDER Titration Protocol 2 UNITS/HR Multivitamins/Vitamin C 10 ml/ 1,010 mls @ 75 mls/hr 03/20/18 17:15 03/21/18 00:55 Dextrose IV 75 mls/hr .[id number] KAVIN Administration Insulin Human Lispro 0 units 03/13/18 11:30 03/17/18 08:59 Humalog High SC Not Given ACHS [facility] Protocol Insulin Lispro Protam/Lispro Human 15 units 03/14/18 16:30 03/17/18 08:59 Humalog Mix 75/25 SC Not Given BIDAC [facility] Labetalol HCl 10 mg 03/15/18 03:08 Trandate IV Q4 PRN Blood Pressure 220/110 & above Lactulose 30 gm 03/13/18 10:00 03/21/18 10:39 Enulose PO 30 gm TID KAVIN Administration Levothyroxine Sodium 75 mcg 03/17/18 09:51 03/21/18 06:08 Synthroid PO 75 mcg 0600 KAVIN Administration Ondansetron HCl 4 mg 03/14/18 23:32 03/15/18 00:14 Zofran Inj IVP 4 mg Q6H PRN Administration Nausea/Vomiting Pantoprazole Sodium 40 mg 03/18/18 10:00 03/21/18 10:38 Protonix Inj IVP 40 mg DAILY KAVIN Administration Rifaximin 550 mg 03/21/18 10:00 03/21/18 10:38 Xifaxan PO 550 mg BID KAVIN Administration Protocol Sucralfate 1 gm 03/20/18 16:00 03/21/18 06:11 Carafate Oral Susp PO 1 gm 0600,1600 KAVIN Administration - Patient Studies Lab Studies: Microbiology Studies 03/20/18 07:47 Gram Stain - Final Sputum Sputum Culture - Preliminary Gram Negative Brian Lab Studies 03/21/18 03/21/18 03/21/18 Range/Units 09:50 07:24 06:20 WBC (4.5-11.0) 10^3/ul RBC (3.5-6.1) 10^6/uL Hgb (14.0-18.0) g/dL Hct (42.0-52.0) % MCV (80.0-105.0) fl MCH (25.0-35.0) pg MCHC (31.0-37.0) g/dl RDW (11.5-14.5) % Plt Count (120.0-450.0) 10^3/uL MPV (7.0-11.0) fl PT (9.4-12.5) SECONDS INR (0.93-1.08) APTT (25.1-36.5) Seconds Sodium (132-148) mmol/L Potassium (3.6-5.0) mmol/L Chloride (98-107) mmol/L Carbon Dioxide (21-33) mmol/L Anion Gap (10-20) BUN (7-21) mg/dL Creatinine (0.8-1.5) mg/dl Est GFR ( Amer) Est GFR (Non-Af Amer) POC Glucose (mg/dL) 227 H 188 H (65-110) mg/dL Random Glucose (70-110) mg/dL Calcium (8.4-10.5) mg/dL Phosphorus (2.5-4.5) mg/dL Magnesium (1.7-2.2) mg/dL Total Bilirubin (0.2-1.3) mg/dL AST (17-59) U/L ALT (7-56) U/L Alkaline Phosphatase (38-126) U/L Ammonia 74 H (9-33) umol/L Total Protein (5.8-8.3) g/dL Albumin (3.0-4.8) g/dL Globulin gm/dL Albumin/Globulin Ratio (1.1-1.8) 03/21/18 03/21/18 03/21/18 Range/Units 06:20 06:20 06:20 WBC 5.1 (4.5-11.0) 10^3/ul RBC 3.88 (3.5-6.1) 10^6/uL Hgb 11.3 L (14.0-18.0) g/dL Hct 35.3 L (42.0-52.0) % MCV 91.0 (80.0-105.0) fl MCH 29.1 (25.0-35.0) pg MCHC 32.0 (31.0-37.0) g/dl RDW 18.4 H (11.5-14.5) % Plt Count 38 L* (120.0-450.0) 10^3/uL MPV 10.4 (7.0-11.0) fl PT 23.9 H (9.4-12.5) SECONDS INR 2.05 H (0.93-1.08) APTT 37.6 H (25.1-36.5) Seconds Sodium 155 H (132-148) mmol/L Potassium 3.7 (3.6-5.0) mmol/L Chloride 119 H (98-107) mmol/L Carbon Dioxide 27 (21-33) mmol/L Anion Gap 13 (10-20) BUN 27 H (7-21) mg/dL Creatinine 0.6 L (0.8-1.5) mg/dl Est GFR ( Amer) > 60 Est GFR (Non-Af Amer) > 60 POC Glucose (mg/dL) (65-110) mg/dL Random Glucose 208 H (70-110) mg/dL Calcium 8.2 L (8.4-10.5) mg/dL Phosphorus 1.9 L (2.5-4.5) mg/dL Magnesium 2.3 H (1.7-2.2) mg/dL Total Bilirubin 12.5 H (0.2-1.3) mg/dL AST 70 H (17-59) U/L ALT 46 (7-56) U/L Alkaline Phosphatase 130 H (38-126) U/L Ammonia (9-33) umol/L Total Protein 5.9 (5.8-8.3) g/dL Albumin 2.2 L (3.0-4.8) g/dL Globulin 3.7 gm/dL Albumin/Globulin Ratio 0.6 L (1.1-1.8) 03/21/18 03/21/18 03/21/18 Range/Units 06:17 04:27 02:14 WBC (4.5-11.0) 10^3/ul RBC (3.5-6.1) 10^6/uL Hgb (14.0-18.0) g/dL Hct (42.0-52.0) % MCV (80.0-105.0) fl MCH (25.0-35.0) pg MCHC (31.0-37.0) g/dl RDW (11.5-14.5) % Plt Count (120.0-450.0) 10^3/uL MPV (7.0-11.0) fl PT (9.4-12.5) SECONDS INR (0.93-1.08) APTT (25.1-36.5) Seconds Sodium (132-148) mmol/L Potassium (3.6-5.0) mmol/L Chloride (98-107) mmol/L Carbon Dioxide (21-33) mmol/L Anion Gap (10-20) BUN (7-21) mg/dL Creatinine (0.8-1.5) mg/dl Est GFR ( Amer) Est GFR (Non-Af Amer) POC Glucose (mg/dL) 194 H 194 H 178 H (65-110) mg/dL Random Glucose (70-110) mg/dL Calcium (8.4-10.5) mg/dL Phosphorus (2.5-4.5) mg/dL Magnesium (1.7-2.2) mg/dL Total Bilirubin (0.2-1.3) mg/dL AST (17-59) U/L ALT (7-56) U/L Alkaline Phosphatase (38-126) U/L Ammonia (9-33) umol/L Total Protein (5.8-8.3) g/dL Albumin (3.0-4.8) g/dL Globulin gm/dL Albumin/Globulin Ratio (1.1-1.8) 03/21/18 03/20/18 03/20/18 Range/Units 00:18 21:21 19:29 WBC (4.5-11.0) 10^3/ul RBC (3.5-6.1) 10^6/uL Hgb (14.0-18.0) g/dL Hct (42.0-52.0) % MCV (80.0-105.0) fl MCH (25.0-35.0) pg MCHC (31.0-37.0) g/dl RDW (11.5-14.5) % Plt Count (120.0-450.0) 10^3/uL MPV (7.0-11.0) fl PT (9.4-12.5) SECONDS INR (0.93-1.08) APTT (25.1-36.5) Seconds Sodium (132-148) mmol/L Potassium (3.6-5.0) mmol/L Chloride (98-107) mmol/L Carbon Dioxide (21-33) mmol/L Anion Gap (10-20) BUN (7-21) mg/dL Creatinine (0.8-1.5) mg/dl Est GFR ( Amer) Est GFR (Non-Af Amer) POC Glucose (mg/dL) 245 H 213 H 178 H (65-110) mg/dL Random Glucose (70-110) mg/dL Calcium (8.4-10.5) mg/dL Phosphorus (2.5-4.5) mg/dL Magnesium (1.7-2.2) mg/dL Total Bilirubin (0.2-1.3) mg/dL AST (17-59) U/L ALT (7-56) U/L Alkaline Phosphatase (38-126) U/L Ammonia (9-33) umol/L Total Protein (5.8-8.3) g/dL Albumin (3.0-4.8) g/dL Globulin gm/dL Albumin/Globulin Ratio (1.1-1.8) 03/20/18 03/20/18 03/20/18 Range/Units 17:53 15:48 13:46 WBC (4.5-11.0) 10^3/ul RBC (3.5-6.1) 10^6/uL Hgb (14.0-18.0) g/dL Hct (42.0-52.0) % MCV (80.0-105.0) fl MCH (25.0-35.0) pg MCHC (31.0-37.0) g/dl RDW (11.5-14.5) % Plt Count (120.0-450.0) 10^3/uL MPV (7.0-11.0) fl PT (9.4-12.5) SECONDS INR (0.93-1.08) APTT (25.1-36.5) Seconds Sodium (132-148) mmol/L Potassium (3.6-5.0) mmol/L Chloride (98-107) mmol/L Carbon Dioxide (21-33) mmol/L Anion Gap (10-20) BUN (7-21) mg/dL Creatinine (0.8-1.5) mg/dl Est GFR ( Amer) Est GFR (Non-Af Amer) POC Glucose (mg/dL) 171 H 179 H 177 H (65-110) mg/dL Random Glucose (70-110) mg/dL Calcium (8.4-10.5) mg/dL Phosphorus (2.5-4.5) mg/dL Magnesium (1.7-2.2) mg/dL Total Bilirubin (0.2-1.3) mg/dL AST (17-59) U/L ALT (7-56) U/L Alkaline Phosphatase (38-126) U/L Ammonia (9-33) umol/L Total Protein (5.8-8.3) g/dL Albumin (3.0-4.8) g/dL Globulin gm/dL Albumin/Globulin Ratio (1.1-1.8) 03/20/18 03/20/18 Range/Units 11:42 09:55 WBC (4.5-11.0) 10^3/ul RBC (3.5-6.1) 10^6/uL Hgb (14.0-18.0) g/dL Hct (42.0-52.0) % MCV (80.0-105.0) fl MCH (25.0-35.0) pg MCHC (31.0-37.0) g/dl RDW (11.5-14.5) % Plt Count (120.0-450.0) 10^3/uL MPV (7.0-11.0) fl PT (9.4-12.5) SECONDS INR (0.93-1.08) APTT (25.1-36.5) Seconds Sodium (132-148) mmol/L Potassium (3.6-5.0) mmol/L Chloride (98-107) mmol/L Carbon Dioxide (21-33) mmol/L Anion Gap (10-20) BUN (7-21) mg/dL Creatinine (0.8-1.5) mg/dl Est GFR ( Amer) Est GFR (Non-Af Amer) POC Glucose (mg/dL) 158 H 161 H (65-110) mg/dL Random Glucose (70-110) mg/dL Calcium (8.4-10.5) mg/dL Phosphorus (2.5-4.5) mg/dL Magnesium (1.7-2.2) mg/dL Total Bilirubin (0.2-1.3) mg/dL AST (17-59) U/L ALT (7-56) U/L Alkaline Phosphatase (38-126) U/L Ammonia (9-33) umol/L Total Protein (5.8-8.3) g/dL Albumin (3.0-4.8) g/dL Globulin gm/dL Albumin/Globulin Ratio (1.1-1.8) Laboratory Results - last 24 hr 03/20/18 03/20/18 03/20/18 09:55 11:42 13:46 WBC RBC Hgb Hct MCV MCH MCHC RDW Plt Count MPV PT INR APTT Sodium Potassium Chloride Carbon Dioxide Anion Gap BUN Creatinine Est GFR ( Amer) Est GFR (Non-Af Amer) POC Glucose (mg/dL) 161 H 158 H 177 H Random Glucose Calcium Phosphorus Magnesium Total Bilirubin AST ALT Alkaline Phosphatase Ammonia Total Protein Albumin Globulin Albumin/Globulin Ratio 03/20/18 03/20/18 03/20/18 15:48 17:53 19:29 WBC RBC Hgb Hct MCV MCH MCHC RDW Plt Count MPV PT INR APTT Sodium Potassium Chloride Carbon Dioxide Anion Gap BUN Creatinine Est GFR ( Amer) Est GFR (Non-Af Amer) POC Glucose (mg/dL) 179 H 171 H 178 H Random Glucose Calcium Phosphorus Magnesium Total Bilirubin AST ALT Alkaline Phosphatase Ammonia Total Protein Albumin Globulin Albumin/Globulin Ratio 03/20/18 03/21/18 03/21/18 21:21 00:18 02:14 WBC RBC Hgb Hct MCV MCH MCHC RDW Plt Count MPV PT INR APTT Sodium Potassium Chloride Carbon Dioxide Anion Gap BUN Creatinine Est GFR ( Amer) Est GFR (Non-Af Amer) POC Glucose (mg/dL) 213 H 245 H 178 H Random Glucose Calcium Phosphorus Magnesium Total Bilirubin AST ALT Alkaline Phosphatase Ammonia Total Protein Albumin Globulin Albumin/Globulin Ratio 03/21/18 03/21/18 03/21/18 04:27 06:17 06:20 WBC 5.1 RBC 3.88 Hgb 11.3 L Hct 35.3 L MCV 91.0 MCH 29.1 MCHC 32.0 RDW 18.4 H Plt Count 38 L* MPV 10.4 PT INR APTT Sodium Potassium Chloride Carbon Dioxide Anion Gap BUN Creatinine Est GFR ( Amer) Est GFR (Non-Af Amer) POC Glucose (mg/dL) 194 H 194 H Random Glucose Calcium Phosphorus Magnesium Total Bilirubin AST ALT Alkaline Phosphatase Ammonia Total Protein Albumin Globulin Albumin/Globulin Ratio 03/21/18 03/21/18 03/21/18 06:20 06:20 06:20 WBC RBC Hgb Hct MCV MCH MCHC RDW Plt Count MPV PT 23.9 H INR 2.05 H APTT 37.6 H Sodium 155 H Potassium 3.7 Chloride 119 H Carbon Dioxide 27 Anion Gap 13 BUN 27 H Creatinine 0.6 L Est GFR ( Amer) > 60 Est GFR (Non-Af Amer) > 60 POC Glucose (mg/dL) Random Glucose 208 H Calcium 8.2 L Phosphorus 1.9 L Magnesium 2.3 H Total Bilirubin 12.5 H AST 70 H ALT 46 Alkaline Phosphatase 130 H Ammonia 74 H Total Protein 5.9 Albumin 2.2 L Globulin 3.7 Albumin/Globulin Ratio 0.6 L 03/21/18 03/21/18 07:24 09:50 WBC RBC Hgb Hct MCV MCH MCHC RDW Plt Count MPV PT INR APTT Sodium Potassium Chloride Carbon Dioxide Anion Gap BUN Creatinine Est GFR ( Amer) Est GFR (Non-Af Amer) POC Glucose (mg/dL) 188 H 227 H Random Glucose Calcium Phosphorus Magnesium Total Bilirubin AST ALT Alkaline Phosphatase Ammonia Total Protein Albumin Globulin Albumin/Globulin Ratio Fingerstick Blood Sugar Results: 210 Critical Care Progress Note - Nutrition Nutrition: Nutrition Category Date Time Status NPO Diet [DIET] Diets 03/15/18 Breakfast Ordered Assessment/Plan - Assessment and Plan (Free Text) Assessment: 62 year old male with a PMH of end stage liver disease, Hep C, Cirrhosis, DM, non compliance, admitted with devastating L IPH now with ZAC. Plan: Neurologic Neurosurgery and neurology recs appreciated, no surgical intevention Continues to have minimal neurological function, able to maintain breaths Maintaining hypernatremic state Cont cohen-precautions Cont keppra Palliative care following Cardiovascular Maintain MAP>65 HD stable Pulmnologic Intubated for airway protection, now tolerating T piece Off sedation Plan for trach placement Maintain sat > 92% Gastrointestinal NPO Known hepatic encephalopathy, continue lactulose and rifaximin Plan for PEG/G tube placement, GI and surgery following MELD 24 Renal Continues making appropriate urine No acute issues Infectious disease No more fevers last 24 hrs PRN ofirmev Monitoring Endocrinologic Continue levothyroxine 75mcg Hx of DM, cont ISS and accuchecks Cont insulin gtt GI/DVT ppx: Protonix, 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) Dispo: pending Trach/PEG or G tube insertion, family continues to want aggressive care Patient was seen and examined and case was discussed at length with attending physician - Date & Time Date: 03/21/18 Time: 07:00 <Guillermo Sanchez - Last Filed: 03/21/18 17:58> CCU Objective - Vital Signs / Intake & Output Vital Signs (Last 4 hours): Vital Signs Temp Pulse Resp BP Pulse Ox 03/21/18 17:00 156/68 H 03/21/18 16:59 95 H 22 98 03/21/18 16:00 98.7 F 167/76 H 03/21/18 15:59 99 H 25 H 100 03/21/18 15:00 85 157/69 H 100 03/21/18 14:00 90 163/73 H 100 Intake and Output (Last 8hrs): Intake & Output 03/21/18 03/21/18 03/21/18 06:59 14:59 22:59 Intake Total 1056 Output Total 500 Balance 556 Weight 146 lb Intake: IV 1056 Insulin drip 936 keppra 100 Output: Urine 350 Urethral (Serna) 350 Other 150 Other: # Bowel Movements 1 - Medications Active Medications: Active Medications Generic Name Dose Route Start Last Admin Trade Name Freq PRN Reason Stop Dose Admin Sodium Chloride 500 mls @ 30 mls/hr 03/15/18 09:45 03/15/18 10:50 Hypertonic Saline 3% IV 30 mls/hr .[id number] KAVIN Administration Levetiracetam 500 mg in 100 mls @ 400 mls/hr 03/15/18 12:00 03/21/18 10:39 Keppra 500mg Ivpb IV 400 mls/hr Q12 KAVIN Administration Multivitamins/Vitamin C 10 ml/ 1,010 mls @ 75 mls/hr 03/20/18 17:15 03/21/18 14:54 Dextrose IV 75 mls/hr .[id number] KAVIN Administration Insulin Human Regular 100 100 mls @ 1 mls/hr 03/21/18 15:39 03/21/18 16:24 units/ Sodium Chloride IV 2 units/hr .Q24H PRN 2 mls/hr TITRATE PER MD ORDER Administration Protocol 1 UNITS/HR Insulin Human Lispro 0 units 03/13/18 11:30 03/17/18 08:59 Humalog High SC Not Given ACHS [facility] Protocol Insulin Lispro Protam/Lispro Human 15 units 03/14/18 16:30 03/17/18 08:59 Humalog Mix 75/25 SC Not Given BIDAC [facility] Labetalol HCl 10 mg 03/15/18 03:08 Trandate IV Q4 PRN Blood Pressure 220/110 & above Lactulose 30 gm 03/13/18 10:00 03/21/18 14:40 Enulose PO 30 gm TID KAVIN Administration Levothyroxine Sodium 75 mcg 03/17/18 09:51 03/21/18 06:08 Synthroid PO 75 mcg 0600 KAVIN Administration Ondansetron HCl 4 mg 03/14/18 23:32 03/15/18 00:14 Zofran Inj IVP 4 mg Q6H PRN Administration Nausea/Vomiting Pantoprazole Sodium 40 mg 03/18/18 10:00 03/21/18 10:38 Protonix Inj IVP 40 mg DAILY KAVIN Administration Rifaximin 550 mg 03/21/18 10:00 03/21/18 10:38 Xifaxan PO 550 mg BID KAVIN Administration Protocol Sucralfate 1 gm 03/20/18 16:00 03/21/18 16:16 Carafate Oral Susp PO 1 gm 0600,1600 KAVIN Administration - Patient Studies Lab Studies: Microbiology Studies 03/20/18 07:47 Gram Stain - Final Sputum Sputum Culture - Preliminary Gram Negative Brian Lab Studies 03/21/18 03/21/18 03/21/18 Range/Units 16:10 13:54 11:48 WBC (4.5-11.0) 10^3/ul RBC (3.5-6.1) 10^6/uL Hgb (14.0-18.0) g/dL Hct (42.0-52.0) % MCV (80.0-105.0) fl MCH (25.0-35.0) pg MCHC (31.0-37.0) g/dl RDW (11.5-14.5) % Plt Count (120.0-450.0) 10^3/uL MPV (7.0-11.0) fl PT (9.4-12.5) SECONDS INR (0.93-1.08) APTT (25.1-36.5) Seconds Sodium (132-148) mmol/L Potassium (3.6-5.0) mmol/L Chloride (98-107) mmol/L Carbon Dioxide (21-33) mmol/L Anion Gap (10-20) BUN (7-21) mg/dL Creatinine (0.8-1.5) mg/dl Est GFR ( Amer) Est GFR (Non-Af Amer) POC Glucose (mg/dL) 198 H 202 H 210 H (65-110) mg/dL Random Glucose (70-110) mg/dL Calcium (8.4-10.5) mg/dL Phosphorus (2.5-4.5) mg/dL Magnesium (1.7-2.2) mg/dL Total Bilirubin (0.2-1.3) mg/dL AST (17-59) U/L ALT (7-56) U/L Alkaline Phosphatase (38-126) U/L Ammonia (9-33) umol/L Total Protein (5.8-8.3) g/dL Albumin (3.0-4.8) g/dL Globulin gm/dL Albumin/Globulin Ratio (1.1-1.8) 03/21/18 03/21/18 03/21/18 Range/Units 09:50 07:24 06:20 WBC (4.5-11.0) 10^3/ul RBC (3.5-6.1) 10^6/uL Hgb (14.0-18.0) g/dL Hct (42.0-52.0) % MCV (80.0-105.0) fl MCH (25.0-35.0) pg MCHC (31.0-37.0) g/dl RDW (11.5-14.5) % Plt Count (120.0-450.0) 10^3/uL MPV (7.0-11.0) fl PT (9.4-12.5) SECONDS INR (0.93-1.08) APTT (25.1-36.5) Seconds Sodium (132-148) mmol/L Potassium (3.6-5.0) mmol/L Chloride (98-107) mmol/L Carbon Dioxide (21-33) mmol/L Anion Gap (10-20) BUN (7-21) mg/dL Creatinine (0.8-1.5) mg/dl Est GFR ( Amer) Est GFR (Non-Af Amer) POC Glucose (mg/dL) 227 H 188 H (65-110) mg/dL Random Glucose (70-110) mg/dL Calcium (8.4-10.5) mg/dL Phosphorus (2.5-4.5) mg/dL Magnesium (1.7-2.2) mg/dL Total Bilirubin (0.2-1.3) mg/dL AST (17-59) U/L ALT (7-56) U/L Alkaline Phosphatase (38-126) U/L Ammonia 74 H (9-33) umol/L Total Protein (5.8-8.3) g/dL Albumin (3.0-4.8) g/dL Globulin gm/dL Albumin/Globulin Ratio (1.1-1.8) 03/21/18 03/21/18 03/21/18 Range/Units 06:20 06:20 06:20 WBC 5.1 (4.5-11.0) 10^3/ul RBC 3.88 (3.5-6.1) 10^6/uL Hgb 11.3 L (14.0-18.0) g/dL Hct 35.3 L (42.0-52.0) % MCV 91.0 (80.0-105.0) fl MCH 29.1 (25.0-35.0) pg MCHC 32.0 (31.0-37.0) g/dl RDW 18.4 H (11.5-14.5) % Plt Count 38 L* (120.0-450.0) 10^3/uL MPV 10.4 (7.0-11.0) fl PT 23.9 H (9.4-12.5) SECONDS INR 2.05 H (0.93-1.08) APTT 37.6 H (25.1-36.5) Seconds Sodium 155 H (132-148) mmol/L Potassium 3.7 (3.6-5.0) mmol/L Chloride 119 H (98-107) mmol/L Carbon Dioxide 27 (21-33) mmol/L Anion Gap 13 (10-20) BUN 27 H (7-21) mg/dL Creatinine 0.6 L (0.8-1.5) mg/dl Est GFR ( Amer) > 60 Est GFR (Non-Af Amer) > 60 POC Glucose (mg/dL) (65-110) mg/dL Random Glucose 208 H (70-110) mg/dL Calcium 8.2 L (8.4-10.5) mg/dL Phosphorus 1.9 L (2.5-4.5) mg/dL Magnesium 2.3 H (1.7-2.2) mg/dL Total Bilirubin 12.5 H (0.2-1.3) mg/dL AST 70 H (17-59) U/L ALT 46 (7-56) U/L Alkaline Phosphatase 130 H (38-126) U/L Ammonia (9-33) umol/L Total Protein 5.9 (5.8-8.3) g/dL Albumin 2.2 L (3.0-4.8) g/dL Globulin 3.7 gm/dL Albumin/Globulin Ratio 0.6 L (1.1-1.8) 03/21/18 03/21/18 03/21/18 Range/Units 06:17 04:27 02:14 WBC (4.5-11.0) 10^3/ul RBC (3.5-6.1) 10^6/uL Hgb (14.0-18.0) g/dL Hct (42.0-52.0) % MCV (80.0-105.0) fl MCH (25.0-35.0) pg MCHC (31.0-37.0) g/dl RDW (11.5-14.5) % Plt Count (120.0-450.0) 10^3/uL MPV (7.0-11.0) fl PT (9.4-12.5) SECONDS INR (0.93-1.08) APTT (25.1-36.5) Seconds Sodium (132-148) mmol/L Potassium (3.6-5.0) mmol/L Chloride (98-107) mmol/L Carbon Dioxide (21-33) mmol/L Anion Gap (10-20) BUN (7-21) mg/dL Creatinine (0.8-1.5) mg/dl Est GFR ( Amer) Est GFR (Non-Af Amer) POC Glucose (mg/dL) 194 H 194 H 178 H (65-110) mg/dL Random Glucose (70-110) mg/dL Calcium (8.4-10.5) mg/dL Phosphorus (2.5-4.5) mg/dL Magnesium (1.7-2.2) mg/dL Total Bilirubin (0.2-1.3) mg/dL AST (17-59) U/L ALT (7-56) U/L Alkaline Phosphatase (38-126) U/L Ammonia (9-33) umol/L Total Protein (5.8-8.3) g/dL Albumin (3.0-4.8) g/dL Globulin gm/dL Albumin/Globulin Ratio (1.1-1.8) 03/21/18 03/20/18 03/20/18 Range/Units 00:18 21:21 19:29 WBC (4.5-11.0) 10^3/ul RBC (3.5-6.1) 10^6/uL Hgb (14.0-18.0) g/dL Hct (42.0-52.0) % MCV (80.0-105.0) fl MCH (25.0-35.0) pg MCHC (31.0-37.0) g/dl RDW (11.5-14.5) % Plt Count (120.0-450.0) 10^3/uL MPV (7.0-11.0) fl PT (9.4-12.5) SECONDS INR (0.93-1.08) APTT (25.1-36.5) Seconds Sodium (132-148) mmol/L Potassium (3.6-5.0) mmol/L Chloride (98-107) mmol/L Carbon Dioxide (21-33) mmol/L Anion Gap (10-20) BUN (7-21) mg/dL Creatinine (0.8-1.5) mg/dl Est GFR ( Amer) Est GFR (Non-Af Amer) POC Glucose (mg/dL) 245 H 213 H 178 H (65-110) mg/dL Random Glucose (70-110) mg/dL Calcium (8.4-10.5) mg/dL Phosphorus (2.5-4.5) mg/dL Magnesium (1.7-2.2) mg/dL Total Bilirubin (0.2-1.3) mg/dL AST (17-59) U/L ALT (7-56) U/L Alkaline Phosphatase (38-126) U/L Ammonia (9-33) umol/L Total Protein (5.8-8.3) g/dL Albumin (3.0-4.8) g/dL Globulin gm/dL Albumin/Globulin Ratio (1.1-1.8) 03/20/18 Range/Units 17:53 WBC (4.5-11.0) 10^3/ul RBC (3.5-6.1) 10^6/uL Hgb (14.0-18.0) g/dL Hct (42.0-52.0) % MCV (80.0-105.0) fl MCH (25.0-35.0) pg MCHC (31.0-37.0) g/dl RDW (11.5-14.5) % Plt Count (120.0-450.0) 10^3/uL MPV (7.0-11.0) fl PT (9.4-12.5) SECONDS INR (0.93-1.08) APTT (25.1-36.5) Seconds Sodium (132-148) mmol/L Potassium (3.6-5.0) mmol/L Chloride (98-107) mmol/L Carbon Dioxide (21-33) mmol/L Anion Gap (10-20) BUN (7-21) mg/dL Creatinine (0.8-1.5) mg/dl Est GFR ( Amer) Est GFR (Non-Af Amer) POC Glucose (mg/dL) 171 H (65-110) mg/dL Random Glucose (70-110) mg/dL Calcium (8.4-10.5) mg/dL Phosphorus (2.5-4.5) mg/dL Magnesium (1.7-2.2) mg/dL Total Bilirubin (0.2-1.3) mg/dL AST (17-59) U/L ALT (7-56) U/L Alkaline Phosphatase (38-126) U/L Ammonia (9-33) umol/L Total Protein (5.8-8.3) g/dL Albumin (3.0-4.8) g/dL Globulin gm/dL Albumin/Globulin Ratio (1.1-1.8) Laboratory Results - last 24 hr 03/20/18 03/20/18 03/20/18 17:53 19:29 21:21 WBC RBC Hgb Hct MCV MCH MCHC RDW Plt Count MPV PT INR APTT Sodium Potassium Chloride Carbon Dioxide Anion Gap BUN Creatinine Est GFR ( Amer) Est GFR (Non-Af Amer) POC Glucose (mg/dL) 171 H 178 H 213 H Random Glucose Calcium Phosphorus Magnesium Total Bilirubin AST ALT Alkaline Phosphatase Ammonia Total Protein Albumin Globulin Albumin/Globulin Ratio 03/21/18 03/21/18 03/21/18 00:18 02:14 04:27 WBC RBC Hgb Hct MCV MCH MCHC RDW Plt Count MPV PT INR APTT Sodium Potassium Chloride Carbon Dioxide Anion Gap BUN Creatinine Est GFR ( Amer) Est GFR (Non-Af Amer) POC Glucose (mg/dL) 245 H 178 H 194 H Random Glucose Calcium Phosphorus Magnesium Total Bilirubin AST ALT Alkaline Phosphatase Ammonia Total Protein Albumin Globulin Albumin/Globulin Ratio 03/21/18 03/21/18 03/21/18 06:17 06:20 06:20 WBC 5.1 RBC 3.88 Hgb 11.3 L Hct 35.3 L MCV 91.0 MCH 29.1 MCHC 32.0 RDW 18.4 H Plt Count 38 L* MPV 10.4 PT INR APTT Sodium 155 H Potassium 3.7 Chloride 119 H Carbon Dioxide 27 Anion Gap 13 BUN 27 H Creatinine 0.6 L Est GFR ( Amer) > 60 Est GFR (Non-Af Amer) > 60 POC Glucose (mg/dL) 194 H Random Glucose 208 H Calcium 8.2 L Phosphorus 1.9 L Magnesium 2.3 H Total Bilirubin 12.5 H AST 70 H ALT 46 Alkaline Phosphatase 130 H Ammonia Total Protein 5.9 Albumin 2.2 L Globulin 3.7 Albumin/Globulin Ratio 0.6 L 03/21/18 03/21/18 03/21/18 06:20 06:20 07:24 WBC RBC Hgb Hct MCV MCH MCHC RDW Plt Count MPV PT 23.9 H INR 2.05 H APTT 37.6 H Sodium Potassium Chloride Carbon Dioxide Anion Gap BUN Creatinine Est GFR ( Amer) Est GFR (Non-Af Amer) POC Glucose (mg/dL) 188 H Random Glucose Calcium Phosphorus Magnesium Total Bilirubin AST ALT Alkaline Phosphatase Ammonia 74 H Total Protein Albumin Globulin Albumin/Globulin Ratio 03/21/18 03/21/18 03/21/18 09:50 11:48 13:54 WBC RBC Hgb Hct MCV MCH MCHC RDW Plt Count MPV PT INR APTT Sodium Potassium Chloride Carbon Dioxide Anion Gap BUN Creatinine Est GFR ( Amer) Est GFR (Non-Af Amer) POC Glucose (mg/dL) 227 H 210 H 202 H Random Glucose Calcium Phosphorus Magnesium Total Bilirubin AST ALT Alkaline Phosphatase Ammonia Total Protein Albumin Globulin Albumin/Globulin Ratio 03/21/18 16:10 WBC RBC Hgb Hct MCV MCH MCHC RDW Plt Count MPV PT INR APTT Sodium Potassium Chloride Carbon Dioxide Anion Gap BUN Creatinine Est GFR ( Amer) Est GFR (Non-Af Amer) POC Glucose (mg/dL) 198 H Random Glucose Calcium Phosphorus Magnesium Total Bilirubin AST ALT Alkaline Phosphatase Ammonia Total Protein Albumin Globulin Albumin/Globulin Ratio Critical Care Progress Note - Nutrition Nutrition: Nutrition Category Date Time Status NPO Diet [DIET] Diets 03/15/18 Breakfast Ordered Attending/Attestation - Attestation I have personally seen and examined this patient.: Yes I have fully participated in the care of the patient.: Yes I have reviewed all pertinent clinical information: Yes Notes (Text): 03/21/18 17:49 62 yo male with devastating ICH with ZAC, 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 Hemodynamically and respiratory jones stable, however would be unable to protect his airways. For trach/peg on Saturday by surgery as family wants continue supportive measures for confucianism reasons. Na improved, making urine, NG output decreased. HOB>35, oral hygiene. DVT/GI prophylaxis. Hyperchloremia improved. Avoid nephrotoxins. ccm time 40 min
[2018-03-21] MEDS: Insulin Regular 100 UNITS in Sodium Chloride 0.9% 99 ML IV PRN (16:24)
[2018-03-22] MEDS: Sucralfate 1 gm/10 ml Oral Susp UD PO SCH ×2 (05:04→16:00)
[2018-03-22] MEDS: Levothyroxine 75 MCG TAB PO SCH (05:04)
[2018-03-22] MEDS: Multivitamin (MVI) 10 ML in Dextrose 5% In Water 1,000 ML IV SCH ×2 (06:18→17:40)
[2018-03-22 06:20] LABS: HEMOGLOBIN 11.7 g/dL (14.0-18.0); MEAN CELL VOLUME 90.4 fl (80.0-105.0); MEAN CORPUSCULAR HEMOGLOBIN 30.2 pg (25.0-35.0); MEAN CORPUSCULAR HGB CONC 33.4 g/dl (31.0-37.0); MEAN PLATELET VOLUME 10.8 fl (7.0-11.0); RBC 3.87 10^6/uL (3.5-6.1); RED CELL DISTRIBUTION WIDTH 18.3 % (11.5-14.5); WHITE BLOOD COUNT 7.2 10^3/ul (4.5-11.0)
[2018-03-22 06:40] LABS: ALB/GLOB RATIO 0.6 (1.1-1.8); ALBUMIN 2.2 g/dL (3.0-4.8); ALT/SGPT 45 U/L (7-56); AST/SGOT 74 U/L (17-59); BLOOD UREA NITROGEN 21 mg/dL (7-21); CALCIUM 8.2 mg/dL (8.4-10.5); GFR AFRICAN-AMERICAN > 60; GFR NON-AFRICAN AMERICAN > 60
[2018-03-22] MEDS ORDERED: Potassium Chloride 40 mEq/30 ml LIQ UD PO ONE (08:38)
[2018-03-22] MEDS: levETIRAcetam 500mg IVPB 500 MG/100 ML BAG IV SCH (09:05)
--- NOTE | 2018-03-22 09:48 | PN ---
DATE: 03/22/2018 INVESTMENT COUNSELOR NOTE SUBJECTIVE: The patient is unresponsive, intubated on T-bar. He is hemodynamically stable at this time. O2 saturations are stable as well. PHYSICAL EXAMINATION: VITAL SIGNS: Note that his temperature is 98.7, pulse is 99, respirations are 19 and his BP is 138/66. SKIN: Warm and dry. HEENT: Head atraumatic, normocephalic. Eyes sluggishly reactive to light. Ear, nose and throat seemed to be within normal limits. NECK: Supple. No JVD. No thyroid enlargement. No lymph nodes. HEART: Has regular rate and rhythm. Normal S1, S2. LUNGS: Reveal good breath sounds bilaterally. ABDOMEN: Slightly distended. Decreased bowel sounds. GENITALIA: Deferred. RECTAL: Deferred. MUSCULOSKELETAL: No joint deformities. EXTREMITIES: Reveal no significant lower extremity edema. NEUROLOGIC: The patient is totally unresponsive. LABORATORY STUDIES: As far as his laboratories; his white count is 7.2, hemoglobin is 11.7, hematocrit 35 with platelets of 43,000. His sodium is 152, potassium 3.5, chloride 118, CO2 of 25 with a BUN of 21, creatinine of 0.5 and a glucose of 200. 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 The patient is totally unresponsive and continues to require intubation and T-bar oxygen support for airway protection. PLAN: As far as our plan, patient is on Carafate as well as lactulose and Keppra as well as Protonix, Synthroid and labetalol. The patient is being followed by Surgery for possible PEG and trach if family consents. Beltran Angel MD
--- NOTE | 2018-03-22 10:31 | CP.PCM.PN ---
<Eze Coley - Last Filed: 03/22/18 10:27> Subjective - Date & Time of Evaluation Date of Evaluation: 03/22/18 Time of Evaluation: 10:27 - Subjective Subjective: Patient seen and examined at bedside. No changes overnight. Family does not want trach and peg at this time. Patient still full code. On ttube. Objective - Vital Signs/Intake and Output Vital Signs (last 24 hours): Temp Pulse Resp BP Pulse Ox 97.1 F L 91 H 19 140/60 97 03/22/18 08:00 03/22/18 10:00 03/22/18 01:59 03/22/18 10:00 03/22/18 10:00 Intake and Output: 03/22/18 03/22/18 06:59 18:59 Intake Total 1050 Output Total 220 Balance 830 - Medications Medications: Current Medications Sodium Chloride (Hypertonic Saline 3%) 500 mls @ 30 mls/hr IV .[id number] [facility] Last Admin: 03/15/18 10:50 Dose: 30 mls/hr Levetiracetam (Keppra 500mg Ivpb) 500 mg in 100 mls @ 400 mls/hr IV Q12 [facility] Last Admin: 03/22/18 09:05 Dose: 400 mls/hr Multivitamins/Vitamin C 10 ml/ (Dextrose) 1,010 mls @ 75 mls/hr IV .[id number] [facility] Last Admin: 03/22/18 06:18 Dose: 75 mls/hr Insulin Human Regular 100 (units/ Sodium Chloride) 100 mls @ 1 mls/hr IV .Q24H PRN; Protocol; 1 UNITS/HR PRN Reason: TITRATE PER MD ORDER Last Titration: 03/22/18 05:00 Dose: 2 units/hr, 2 mls/hr Insulin Human Lispro (Humalog High) 0 units SC ACHS [facility] PRN Reason: Protocol Last Admin: 03/17/18 08:59 Dose: Not Given Insulin Lispro Protam/Lispro Human (Humalog Mix 75/25) 15 units SC BIDAC [facility] Last Admin: 03/17/18 08:59 Dose: Not Given Labetalol HCl (Trandate) 10 mg IV Q4 PRN PRN Reason: Blood Pressure 220/110 & above Lactulose (Enulose) 30 gm PO TID [facility] Last Admin: 03/22/18 09:04 Dose: 30 gm Levothyroxine Sodium (Synthroid) 75 mcg PO 0600 [facility] Last Admin: 03/22/18 05:04 Dose: 75 mcg Ondansetron HCl (Zofran Inj) 4 mg IVP Q6H PRN PRN Reason: Nausea/Vomiting Last Admin: 03/15/18 00:14 Dose: 4 mg Pantoprazole Sodium (Protonix Inj) 40 mg IVP DAILY [facility] Last Admin: 03/22/18 09:04 Dose: 40 mg Rifaximin (Xifaxan) 550 mg PO BID [facility] PRN Reason: Protocol Last Admin: 03/21/18 18:26 Dose: 550 mg Sucralfate (Carafate Oral Susp) 1 gm PO 0600,1600 [facility] Last Admin: 03/22/18 05:04 Dose: 1 gm - Labs Labs: 03/22/18 06:00 03/22/18 06:00 PT 23.9 SECONDS (9.4-12.5) H 03/21/18 06:20 INR 2.05 (0.93-1.08) H 03/21/18 06:20 APTT 37.6 Seconds (25.1-36.5) H 03/21/18 06:20 - Additional Findings Additional findings: - Constitutional Appears: No Acute Distress, Chronically Ill - Eye Exam Eye Exam: Scleral icterus - ENT Exam ENT Exam: Mucous Membranes Dry - Respiratory Exam Additional comments: intubated on pressure support - Cardiovascular Exam Cardiovascular Exam: REGULAR RHYTHM - GI/Abdominal Exam GI & Abdominal Exam: Distended, Soft, Normal Bowel Sounds - Neurological Exam Neurological Exam: Altered - Psychiatric Exam Psychiatric exam: Flat Affect - Skin Skin Exam: Dry, Warm Assessment and Plan - Assessment and Plan (Free Text) Assessment: Neuro (03/15) Head CT showed massive hemorrhage in left partietal lobe extending to cortical surface with 11mm of midline shift (03/16) head CT showed new subarachnoid hemorrhage over the right hemisphere Neurosurgery consult, no surgical intervention, poor prognosis Neurology consult, help appreciated keppra lactulose and rifaximin Palliative care consult HOB 30 degrees Cardio Maintain MAP>65 Tachycardic Labetalol PRN Pulm Intubated, ttube Maintain sat > 90% family does not want trach at this time GI NPO Continue sucralfate GI consult for PEG tube Gen surg consult for g tube Renal Strict I's & O's Monitor Urine output Aldactone ID febrile cooling blanket ofirmev Monitor Endo Synthroid 75 Insulin drip Maintain euglycemia 140-180 GI/DVT ppx: Protonix, no chemical anticoagulation Family does not want trach and peg at this time <Chetna Flores - Last Filed: 03/23/18 12:43> Objective - Vital Signs/Intake and Output Vital Signs (last 24 hours): Temp Pulse Resp BP Pulse Ox 96.8 F L 103 H 19 99/55 L 98 03/23/18 11:45 03/23/18 11:45 03/23/18 11:31 03/23/18 11:45 03/23/18 11:45 Intake and Output: 03/23/18 03/23/18 06:59 18:59 Intake Total 1196 782.7 Output Total 900 Balance 296 782.7 - Medications Medications: Current Medications Bacitracin (Bacitracin) 1 ea TOP BID PRN PRN Reason: ARM BLISTERS Sodium Chloride (Hypertonic Saline 3%) 500 mls @ 30 mls/hr IV .[id number] [facility] Last Admin: 03/15/18 10:50 Dose: 30 mls/hr Levetiracetam (Keppra 500mg Ivpb) 500 mg in 100 mls @ 400 mls/hr IV Q12 [facility] Last Admin: 03/23/18 09:14 Dose: 400 mls/hr Multivitamins/Vitamin C 10 ml/ (Dextrose) 1,010 mls @ 75 mls/hr IV .[id number] [facility] Last Admin: 03/23/18 09:13 Dose: 75 mls/hr Insulin Human Regular 100 (units/ Sodium Chloride) 100 mls @ 1 mls/hr IV .Q24H PRN; Protocol; 1 UNITS/HR PRN Reason: TITRATE PER MD ORDER Last Titration: 03/23/18 10:34 Dose: 1.5 units/hr, 1.5 mls/hr NOREPINEPHRINE BIT/0.9 % NACL (Levophed 4 Mg/ 250 Ml Ns Premixed) 4 mg in 250 mls @ 15 mls/hr IV .[id number] PRN; Protocol; 4 MCG/MIN PRN Reason: TITRATE PER MD ORDER Last Titration: 03/23/18 12:32 Dose: Infused Meropenem (Merrem Iv 1 Gm Premix) 50 mls @ 100 mls/hr IVPB Q8 [facility] PRN Reason: Protocol Stop: 03/30/18 10:46 Vancomycin HCl (Vancomycin 1gm) 1 gm in 250 mls @ 167 mls/hr IVPB Q12H [facility] PRN Reason: Protocol Insulin Human Lispro (Humalog High) 0 units SC ACHS [facility] PRN Reason: Protocol Last Admin: 03/17/18 08:59 Dose: Not Given Insulin Lispro Protam/Lispro Human (Humalog Mix 75/25) 15 units SC BIDAC [facility] Last Admin: 03/17/18 08:59 Dose: Not Given Labetalol HCl (Trandate) 10 mg IV Q4 PRN PRN Reason: Blood Pressure 220/110 & above Last Admin: 03/23/18 00:52 Dose: 2 ml Lactulose (Enulose) 30 gm PO TID [facility] Last Admin: 03/23/18 09:14 Dose: 30 gm Levothyroxine Sodium (Synthroid) 75 mcg PO 0600 [facility] Last Admin: 03/23/18 06:58 Dose: 75 mcg Ondansetron HCl (Zofran Inj) 4 mg IVP Q6H PRN PRN Reason: Nausea/Vomiting Last Admin: 03/15/18 00:14 Dose: 4 mg Pantoprazole Sodium (Protonix Inj) 40 mg IVP DAILY [facility] Last Admin: 03/23/18 09:16 Dose: 40 mg Rifaximin (Xifaxan) 550 mg PO BID [facility] PRN Reason: Protocol Last Admin: 03/23/18 09:15 Dose: 550 mg Sucralfate (Carafate Oral Susp) 1 gm PO 0600,1600 [facility] Last Admin: 03/23/18 06:56 Dose: 1 gm - Labs Labs: 03/23/18 06:00 03/23/18 06:00 PT 23.4 SECONDS (9.4-12.5) H 03/23/18 06:00 INR 2.01 (0.93-1.08) H 03/23/18 06:00 APTT 41.4 Seconds (25.1-36.5) H 03/23/18 06:00 Attending/Attestation - Attestation I have personally seen and examined this patient.: Yes I have fully participated in the care of the patient.: Yes I have reviewed all pertinent clinical information, including history, physical exam and plan: Yes Notes (Text): I have seen and examined the patient at bedside. Agree with the above note. Patient's prognosis is guarded. Patients family has now decided not to do trach and peg however patient remains full code. He is tolerating T piece. Continue keppra, levothyroxine, lactulose and rifaxamin. Palliative care on board.
[2018-03-22] MEDS ORDERED: Potassium Chloride 40 mEq/30 ml LIQ UD NG ONE (11:17)
[2018-03-22] MEDS: Insulin Regular 100 UNITS in Sodium Chloride 0.9% 99 ML IV PRN (15:53)
[2018-03-23] MEDS: levETIRAcetam 500mg IVPB 500 MG/100 ML BAG IV SCH ×3 (00:56→21:57)
--- NOTE | 2018-03-23 02:06 | CP.PCM.PN ---
<VitakalinaShaunna munoz - Last Filed: 03/23/18 02:00> Subjective - Date & Time of Evaluation Date of Evaluation: 03/23/18 Time of Evaluation: 01:45 - Subjective Subjective: Code blue note: ; Patient had spontaneous desaturation, upon checking pule patient was in PEA, code blue was activated. Patient was coded for 12 minutes, with rounds of cpr and epinephrine 3x. The rhythm was PEA throughout the code. Patient regained ROSC, with BP of 109/44, HR of 86. Patient was placed back on the vent. Left a message for [employer] at [phone], and [employer] at [phone], awaiting response. Objective - Vital Signs/Intake and Output Vital Signs (last 24 hours): Temp Pulse Resp BP Pulse Ox 98.9 F 107 H 19 208/89 H 97 03/22/18 16:00 03/23/18 00:52 03/22/18 01:59 03/23/18 00:52 03/22/18 20:00 Intake and Output: 03/22/18 03/23/18 18:59 06:59 Intake Total 1252 7 Output Total 580 Balance 672 7 - Medications Medications: Current Medications Sodium Chloride (Hypertonic Saline 3%) 500 mls @ 30 mls/hr IV .[id number] [facility] Last Admin: 03/15/18 10:50 Dose: 30 mls/hr Levetiracetam (Keppra 500mg Ivpb) 500 mg in 100 mls @ 400 mls/hr IV Q12 [facility] Last Admin: 03/23/18 00:56 Dose: 400 mls/hr Multivitamins/Vitamin C 10 ml/ (Dextrose) 1,010 mls @ 75 mls/hr IV .[id number] [facility] Last Admin: 03/22/18 17:40 Dose: 75 mls/hr Insulin Human Regular 100 (units/ Sodium Chloride) 100 mls @ 1 mls/hr IV .Q24H PRN; Protocol; 1 UNITS/HR PRN Reason: TITRATE PER MD ORDER Last Titration: 03/22/18 20:05 Dose: 3 units/hr, 3 mls/hr Insulin Human Lispro (Humalog High) 0 units SC ACHS [facility] PRN Reason: Protocol Last Admin: 03/17/18 08:59 Dose: Not Given Insulin Lispro Protam/Lispro Human (Humalog Mix 75/25) 15 units SC BIDAC [facility] Last Admin: 03/17/18 08:59 Dose: Not Given Labetalol HCl (Trandate) 10 mg IV Q4 PRN PRN Reason: Blood Pressure 220/110 & above Last Admin: 03/23/18 00:52 Dose: 2 ml Lactulose (Enulose) 30 gm PO TID [facility] Last Admin: 03/22/18 17:39 Dose: 30 gm Levothyroxine Sodium (Synthroid) 75 mcg PO 0600 [facility] Last Admin: 03/22/18 05:04 Dose: 75 mcg Ondansetron HCl (Zofran Inj) 4 mg IVP Q6H PRN PRN Reason: Nausea/Vomiting Last Admin: 03/15/18 00:14 Dose: 4 mg Pantoprazole Sodium (Protonix Inj) 40 mg IVP DAILY [facility] Last Admin: 03/22/18 09:04 Dose: 40 mg Rifaximin (Xifaxan) 550 mg PO BID [facility] PRN Reason: Protocol Last Admin: 03/22/18 17:39 Dose: 550 mg Sucralfate (Carafate Oral Susp) 1 gm PO 0600,1600 [facility] Last Admin: 03/22/18 16:00 Dose: 1 gm - Labs Labs: 03/22/18 06:00 03/22/18 06:00 PT 23.9 SECONDS (9.4-12.5) H 03/21/18 06:20 INR 2.05 (0.93-1.08) H 03/21/18 06:20 APTT 37.6 Seconds (25.1-36.5) H 03/21/18 06:20 Assessment and Plan - Assessment and Plan (Free Text) Plan: Will obtain ABG with shock panel in 1 hour Obtain cbc, cmp, mag and phos, cardiac iso, ekg. Plan discussed with Dr Buchanan. <Beltran Buchanan Q - Last Filed: 03/23/18 06:43> Objective - Vital Signs/Intake and Output Vital Signs (last 24 hours): Temp Pulse Resp BP Pulse Ox 98.6 F 106 H 19 160/82 H 99 03/23/18 04:00 03/23/18 06:31 03/22/18 01:59 03/23/18 06:31 03/23/18 06:31 Intake and Output: 03/22/18 03/23/18 18:59 06:59 Intake Total 1252 1196 Output Total 580 900 Balance 672 296 - Medications Medications: Current Medications Sodium Chloride (Hypertonic Saline 3%) 500 mls @ 30 mls/hr IV .[id number] [facility] Last Admin: 03/15/18 10:50 Dose: 30 mls/hr Levetiracetam (Keppra 500mg Ivpb) 500 mg in 100 mls @ 400 mls/hr IV Q12 [facility] Last Admin: 03/23/18 00:56 Dose: 400 mls/hr Multivitamins/Vitamin C 10 ml/ (Dextrose) 1,010 mls @ 75 mls/hr IV .[id number] [facility] Last Admin: 03/22/18 17:40 Dose: 75 mls/hr Insulin Human Regular 100 (units/ Sodium Chloride) 100 mls @ 1 mls/hr IV .Q24H PRN; Protocol; 1 UNITS/HR PRN Reason: TITRATE PER MD ORDER Last Titration: 03/23/18 02:01 Dose: 2 units/hr, 2 mls/hr NOREPINEPHRINE BIT/0.9 % NACL (Levophed 4 Mg/ 250 Ml Ns Premixed) 4 mg in 250 mls @ 15 mls/hr IV .[id number] PRN; Protocol; 4 MCG/MIN PRN Reason: TITRATE PER MD ORDER Last Admin: 03/23/18 02:41 Dose: 4 mcg/min, 15 mls/hr Insulin Human Lispro (Humalog High) 0 units SC ACHS [facility] PRN Reason: Protocol Last Admin: 03/17/18 08:59 Dose: Not Given Insulin Lispro Protam/Lispro Human (Humalog Mix 75/25) 15 units SC BIDAC [facility] Last Admin: 03/17/18 08:59 Dose: Not Given Labetalol HCl (Trandate) 10 mg IV Q4 PRN PRN Reason: Blood Pressure 220/110 & above Last Admin: 03/23/18 00:52 Dose: 2 ml Lactulose (Enulose) 30 gm PO TID [facility] Last Admin: 03/22/18 17:39 Dose: 30 gm Levothyroxine Sodium (Synthroid) 75 mcg PO 0600 [facility] Last Admin: 03/22/18 05:04 Dose: 75 mcg Ondansetron HCl (Zofran Inj) 4 mg IVP Q6H PRN PRN Reason: Nausea/Vomiting Last Admin: 03/15/18 00:14 Dose: 4 mg Pantoprazole Sodium (Protonix Inj) 40 mg IVP DAILY [facility] Last Admin: 03/22/18 09:04 Dose: 40 mg Rifaximin (Xifaxan) 550 mg PO BID [facility] PRN Reason: Protocol Last Admin: 03/22/18 17:39 Dose: 550 mg Sucralfate (Carafate Oral Susp) 1 gm PO 0600,1600 [facility] Last Admin: 03/22/18 16:00 Dose: 1 gm - Labs Labs: 03/23/18 02:30 03/23/18 02:30 PT 23.9 SECONDS (9.4-12.5) H 03/21/18 06:20 INR 2.05 (0.93-1.08) H 03/21/18 06:20 APTT 37.6 Seconds (25.1-36.5) H 03/21/18 06:20 Attending/Attestation - Attestation I have personally seen and examined this patient.: Yes I have fully participated in the care of the patient.: Yes I have reviewed all pertinent clinical information, including history, physical exam and plan: Yes
[2018-03-23] MEDS ORDERED: NOREPINEPHRINE BIT/0.9 % NACL 4 MG/250 ML BAG IV ONE (02:34)
[2018-03-23] MEDS: NOREPINEPHRINE BIT/0.9 % NACL 4 MG/250 ML BAG IV PRN ×7 (02:41→21:57)
[2018-03-23 03:14] LABS: ALB/GLOB RATIO 0.6 (1.1-1.8); ALBUMIN 2.1 g/dL (3.0-4.8); ALT/SGPT 45 U/L (7-56); AST/SGOT 75 U/L (17-59); BLOOD UREA NITROGEN 19 mg/dL (7-21); CALCIUM 7.7 mg/dL (8.4-10.5); GFR AFRICAN-AMERICAN > 60; GFR NON-AFRICAN AMERICAN > 60
[2018-03-23 03:18] LABS: TROPONIN I < 0.01 ng/mL
[2018-03-23 03:44] LABS: ARTERIAL BLOOD GAS HCO3 23.1 mmol/L (21-28); ARTERIAL BLOOD GAS O2 SAT 100.4 % (95-98); ARTERIAL BLOOD GAS PCO2 39 mm/Hg (35-45); ARTERIAL BLOOD GAS PH 7.38 (7.35-7.45); ARTERIAL BLOOD GAS TCO2 24.3 mmol.L (22-28)
[2018-03-23 04:20] LABS: BASO # 0.03 K/mm3 (0.0-2.0); BASO % 0.2 % (0.0-3.0); EOS # 0.1 (0.0-0.7); EOS % 0.4 % (1.5-5.0); GRAN # 12.43 (1.4-6.5); GRAN % 87.4 % (50.0-68.0); HEMOGLOBIN 11.7 g/dL (14.0-18.0); LYMPH % 6.7 % (22.0-35.0); MEAN CELL VOLUME 93.6 fl (80.0-105.0); MEAN CORPUSCULAR HEMOGLOBIN 30.1 pg (25.0-35.0); MEAN CORPUSCULAR HGB CONC 32.1 g/dl (31.0-37.0); MEAN PLATELET VOLUME 10.3 fl (7.0-11.0); MONO # 0.8 (0.1-0.6); MONO % 5.3 % (1.0-6.0); RBC 3.89 10^6/uL (3.5-6.1); RED CELL DISTRIBUTION WIDTH 18.5 % (11.5-14.5); WHITE BLOOD COUNT 14.2 10^3/ul (4.5-11.0)
--- NOTE | 2018-03-23 05:57 | CP.PCM.PN ---
Subjective - Date & Time of Evaluation Date of Evaluation: 03/23/18 Time of Evaluation: 05:53 - Subjective Subjective: Mr. Feng was seen and examined at the bedside in ICU. He is on mechanical ventilator on PRVC mode. He has no corneal reflex, no gag reflex, not breathing over the set ventilator rate, pupils are fixed and dilated at 4 mm in size. GCS- 3T. According to the staff, he was on T-piece earlier the night and had an episode of respiratory distress, desating with SPO2-40%. Patient was coded and placed on mechanical ventilator. Currently, receiving vasopressor and BP- 95/58 , HR- 96, SPO2-95%. No response from family when staff attempted to contact them. Objective - Vital Signs/Intake and Output Vital Signs (last 24 hours): Temp Pulse Resp BP Pulse Ox 98.9 F 107 H 19 208/89 H 97 03/22/18 16:00 03/23/18 00:52 03/22/18 01:59 03/23/18 00:52 03/22/18 20:00 Intake and Output: 03/22/18 03/23/18 18:59 06:59 Intake Total 1252 11 Output Total 580 Balance 672 11 - Medications Medications: Current Medications Sodium Chloride (Hypertonic Saline 3%) 500 mls @ 30 mls/hr IV .[id number] [facility] Last Admin: 03/15/18 10:50 Dose: 30 mls/hr Levetiracetam (Keppra 500mg Ivpb) 500 mg in 100 mls @ 400 mls/hr IV Q12 [facility] Last Admin: 03/23/18 00:56 Dose: 400 mls/hr Multivitamins/Vitamin C 10 ml/ (Dextrose) 1,010 mls @ 75 mls/hr IV .[id number] [facility] Last Admin: 03/22/18 17:40 Dose: 75 mls/hr Insulin Human Regular 100 (units/ Sodium Chloride) 100 mls @ 1 mls/hr IV .Q24H PRN; Protocol; 1 UNITS/HR PRN Reason: TITRATE PER MD ORDER Last Titration: 03/23/18 02:01 Dose: 2 units/hr, 2 mls/hr NOREPINEPHRINE BIT/0.9 % NACL (Levophed 4 Mg/ 250 Ml Ns Premixed) 4 mg in 250 mls @ 15 mls/hr IV .[id number] PRN; Protocol; 4 MCG/MIN PRN Reason: TITRATE PER MD ORDER Last Admin: 03/23/18 02:41 Dose: 4 mcg/min, 15 mls/hr Insulin Human Lispro (Humalog High) 0 units SC ACHS [facility] PRN Reason: Protocol Last Admin: 03/17/18 08:59 Dose: Not Given Insulin Lispro Protam/Lispro Human (Humalog Mix 75/25) 15 units SC BIDAC [facility] Last Admin: 03/17/18 08:59 Dose: Not Given Labetalol HCl (Trandate) 10 mg IV Q4 PRN PRN Reason: Blood Pressure 220/110 & above Last Admin: 03/23/18 00:52 Dose: 2 ml Lactulose (Enulose) 30 gm PO TID [facility] Last Admin: 03/22/18 17:39 Dose: 30 gm Levothyroxine Sodium (Synthroid) 75 mcg PO 0600 [facility] Last Admin: 03/22/18 05:04 Dose: 75 mcg Ondansetron HCl (Zofran Inj) 4 mg IVP Q6H PRN PRN Reason: Nausea/Vomiting Last Admin: 03/15/18 00:14 Dose: 4 mg Pantoprazole Sodium (Protonix Inj) 40 mg IVP DAILY [facility] Last Admin: 03/22/18 09:04 Dose: 40 mg Rifaximin (Xifaxan) 550 mg PO BID [facility] PRN Reason: Protocol Last Admin: 03/22/18 17:39 Dose: 550 mg Sucralfate (Carafate Oral Susp) 1 gm PO 0600,1600 [facility] Last Admin: 03/22/18 16:00 Dose: 1 gm - Labs Labs: 03/23/18 02:30 03/23/18 02:30 PT 23.9 SECONDS (9.4-12.5) H 03/21/18 06:20 INR 2.05 (0.93-1.08) H 03/21/18 06:20 APTT 37.6 Seconds (25.1-36.5) H 03/21/18 06:20 - Constitutional Appears: No Acute Distress - Head Exam Head Exam: NORMAL INSPECTION - Eye Exam Pupil Exam: Fixed, Mydriatic Additional comments: 4 mm bilateral eyes. - Neurological Exam Neuro motor strength exam: Left Upper Extremity: 0, Right Upper Extremity: 0, Left Lower Extremity: 0, Right Lower Extremity: 0 Additional comments: GCS-3T Assessment and Plan (1) Anoxic brain injury Assessment & Plan: Case discussed with Dr. Bobby, continue all current medical regimen. Recommend silence EEG and CT scan of the head to evaluate any brain activity. Status: Acute
[2018-03-23] MEDS: Sucralfate 1 gm/10 ml Oral Susp UD PO SCH ×2 (06:56→15:54)
[2018-03-23] MEDS: Levothyroxine 75 MCG TAB PO SCH (06:58)
[2018-03-23 07:06] LABS: BASO # 0.03 K/mm3 (0.0-2.0); BASO % 0.2 % (0.0-3.0); EOS # 0.1 (0.0-0.7); EOS % 0.6 % (1.5-5.0); GRAN # 14.13 (1.4-6.5); GRAN % 89.4 % (50.0-68.0); HEMOGLOBIN 11.8 g/dL (14.0-18.0); LYMPH # 0.8 (1.2-3.4); LYMPH % 4.9 % (22.0-35.0); MEAN CELL VOLUME 90.5 fl (80.0-105.0); MEAN CORPUSCULAR HEMOGLOBIN 29.4 pg (25.0-35.0); MEAN CORPUSCULAR HGB CONC 32.5 g/dl (31.0-37.0); MEAN PLATELET VOLUME 9.7 fl (7.0-11.0); MONO # 0.8 (0.1-0.6); MONO % 4.9 % (1.0-6.0); PLATELET COUNT 61 10^3/uL (120.0-450.0); RBC 4.01 10^6/uL (3.5-6.1); RED CELL DISTRIBUTION WIDTH 18.3 % (11.5-14.5); WHITE BLOOD COUNT 15.8 10^3/ul (4.5-11.0)
[2018-03-23 07:27] LABS: ALB/GLOB RATIO 0.5 (1.1-1.8); ALT/SGPT 46 U/L (7-56); AST/SGOT 75 U/L (17-59); BLOOD UREA NITROGEN 22 mg/dL (7-21); CALCIUM 7.9 mg/dL (8.4-10.5); GFR AFRICAN-AMERICAN > 60; GFR NON-AFRICAN AMERICAN > 60
[2018-03-23 07:29] LABS: INR 2.01 (0.93-1.08); PARTIAL THROMBOPLASTIN TIME 41.4 Seconds (25.1-36.5); PROTHROMBIN TIME 23.4 SECONDS (9.4-12.5)
--- NOTE | 2018-03-23 08:16 | PN ---
DATE: 03/23/2018 TECHNICIAN TEST SYSTEMS NOTE SUBJECTIVE: The patient is unresponsive on the vent and on the ventilator at this time with a FiO2 of 50%. Note that he had an episode of cardiac failure and that required CPR and at that time, once appropriate response was obtained, was placed back on the ventilator. The patient, at this time, is on Levophed to support his blood pressure and was seen by Neurology last night and EEG and CT of the head may be done this morning. PHYSICAL EXAMINATION: VITAL SIGNS: Note that his temperature is 98.6, pulse is 106, respirations are 25, and his BP is 160/82. HEENT: Head is atraumatic, normocephalic. Eyes, very sluggish to react to light. Ears, nose and throat seemed to be within normal limits. NECK: Supple. No JVD. No thyroid enlargement. No lymph nodes. HEART: Has regular rate and rhythm. Normal S1, S2. LUNGS: Reveal rare rhonchi at the bases. ABDOMEN: Less distended today. Soft. Decreased bowel sounds. GENITALIA: Deferred. RECTAL: Deferred. MUSCULOSKELETAL: No joint deformities. EXTREMITIES: Reveal trace lower extremity edema. NEUROLOGIC: The patient is unresponsive on the ventilator. DATA: As far as his laboratories are concerned, white count is 15.8, hemoglobin 11.8, hematocrit 36.3 with platelets of 61,000. Arterial blood gas reveals a pH of 7.38, pCO2 of 39, pO2 of 415. This was on FiO2 of 100%. Sodium is 152, potassium 3.6, chloride 116, CO2 of 27, BUN of 22, creatinine 0.9 and glucose of 173. Note that his ammonia level is at 210. 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 He is status post cardiac arrest and CPR and at this time is unresponsive on the ventilator. PLAN: As far as our plan, we will continue with ventilator support and decrease the FiO2 as tolerated. The patient is on Carafate as well as lactulose, Keppra and Protonix as well as Synthroid and labetalol. We will continue to follow closely and treat aggressively along with the other consultants and the primary care doctor. Beltran Angel MD [facility] # [id number]
[2018-03-23 08:34] LABS: ATYPICAL LYMPHOCYTE 2 % (0.0-0.0); BAND 8 % (0-2); LYMPHOCYTE 5 % (22.0-35.0); MONOCYTE 3 % (1.0-6.0); NEUTROPHIL 82 % (50.0-70.0)
[2018-03-23] MEDS: Multivitamin (MVI) 10 ML in Dextrose 5% In Water 1,000 ML IV SCH (09:13)
--- NOTE | 2018-03-23 09:56 | CARD ---
APPROVED REPORT EKG Measurement Heart [id number] <Conclusion> Sinus tachycardia Nonspecific T wave abnormality Prolonged QTc
--- NOTE | 2018-03-23 11:10 | CP.PCM.PN ---
<Eze Coley - Last Filed: 03/23/18 11:06> Subjective - Date & Time of Evaluation Date of Evaluation: 03/23/18 Time of Evaluation: 11:06 - Subjective Subjective: Patient seen and examined at bedside. Warming blanket on. On pressors. Intubated. Family at bedside. waiting for EEG to make further decisions regarding care. Full code at this time. Objective - Vital Signs/Intake and Output Vital Signs (last 24 hours): Temp Pulse Resp BP Pulse Ox 95.5 F L 100 H 19 97/60 L 99 03/23/18 10:00 03/23/18 10:00 03/22/18 01:59 03/23/18 10:00 03/23/18 10:00 Intake and Output: 03/23/18 03/23/18 06:59 18:59 Intake Total 1196 500 Output Total 900 Balance 296 500 - Medications Medications: Current Medications Sodium Chloride (Hypertonic Saline 3%) 500 mls @ 30 mls/hr IV .[id number] [facility] Last Admin: 03/15/18 10:50 Dose: 30 mls/hr Levetiracetam (Keppra 500mg Ivpb) 500 mg in 100 mls @ 400 mls/hr IV Q12 [facility] Last Admin: 03/23/18 09:14 Dose: 400 mls/hr Multivitamins/Vitamin C 10 ml/ (Dextrose) 1,010 mls @ 75 mls/hr IV .[id number] [facility] Last Admin: 03/23/18 09:13 Dose: 75 mls/hr Insulin Human Regular 100 (units/ Sodium Chloride) 100 mls @ 1 mls/hr IV .Q24H PRN; Protocol; 1 UNITS/HR PRN Reason: TITRATE PER MD ORDER Last Titration: 03/23/18 02:01 Dose: 2 units/hr, 2 mls/hr NOREPINEPHRINE BIT/0.9 % NACL (Levophed 4 Mg/ 250 Ml Ns Premixed) 4 mg in 250 mls @ 15 mls/hr IV .[id number] PRN; Protocol; 4 MCG/MIN PRN Reason: TITRATE PER MD ORDER Last Admin: 03/23/18 09:17 Dose: 4 mcg/min, 15 mls/hr Meropenem (Merrem Iv 1 Gm Premix) 50 mls @ 100 mls/hr IVPB Q8 [facility] PRN Reason: Protocol Stop: 03/30/18 10:46 Vancomycin HCl (Vancomycin 1gm) 1 gm in 250 mls @ 167 mls/hr IVPB Q12H [facility] PRN Reason: Protocol Insulin Human Lispro (Humalog High) 0 units SC ACHS [facility] PRN Reason: Protocol Last Admin: 03/17/18 08:59 Dose: Not Given Insulin Lispro Protam/Lispro Human (Humalog Mix 75/25) 15 units SC BIDAC [facility] Last Admin: 03/17/18 08:59 Dose: Not Given Labetalol HCl (Trandate) 10 mg IV Q4 PRN PRN Reason: Blood Pressure 220/110 & above Last Admin: 03/23/18 00:52 Dose: 2 ml Lactulose (Enulose) 30 gm PO TID [facility] Last Admin: 03/23/18 09:14 Dose: 30 gm Levothyroxine Sodium (Synthroid) 75 mcg PO 0600 [facility] Last Admin: 03/23/18 06:58 Dose: 75 mcg Ondansetron HCl (Zofran Inj) 4 mg IVP Q6H PRN PRN Reason: Nausea/Vomiting Last Admin: 03/15/18 00:14 Dose: 4 mg Pantoprazole Sodium (Protonix Inj) 40 mg IVP DAILY [facility] Last Admin: 03/23/18 09:16 Dose: 40 mg Rifaximin (Xifaxan) 550 mg PO BID [facility] PRN Reason: Protocol Last Admin: 03/23/18 09:15 Dose: 550 mg Sucralfate (Carafate Oral Susp) 1 gm PO 0600,1600 [facility] Last Admin: 03/23/18 06:56 Dose: 1 gm - Labs Labs: 03/23/18 06:00 03/23/18 06:00 PT 23.4 SECONDS (9.4-12.5) H 03/23/18 06:00 INR 2.01 (0.93-1.08) H 03/23/18 06:00 APTT 41.4 Seconds (25.1-36.5) H 03/23/18 06:00 - Constitutional Appears: Chronically Ill - Head Exam Head Exam: ATRAUMATIC, NORMAL INSPECTION, NORMOCEPHALIC - Eye Exam Eye Exam: Scleral icterus. absent: PERRL Pupil Exam: absent: NORMAL ACCOMODATION, PERRL - ENT Exam ENT Exam: Mucous Membranes Moist - Respiratory Exam Additional comments: intubated, PRVC - Cardiovascular Exam Cardiovascular Exam: Tachycardia - GI/Abdominal Exam GI & Abdominal Exam: Soft, Normal Bowel Sounds. absent: Distended, Tenderness - Exam Additional comments: walker, dark urine in walker, no BRB - Neurological Exam Neurological Exam: absent: Alert, Awake, Oriented x3 Assessment and Plan - Assessment and Plan (Free Text) Assessment: Neuro (03/15) Head CT showed massive hemorrhage in left partietal lobe extending to cortical surface with 11mm of midline shift (03/16) head CT showed new subarachnoid hemorrhage over the right hemisphere Neurosurgery consult, no surgical intervention, poor prognosis Neurology consult, help appreciated keppra lactulose and rifaximin Palliative care consult HOB 30 degrees F/U EEG and CT head. Family is making decisions to w/d care based on the results of the EEG. Please call them with the results Cardio Levophed Pulm Intubated, PRVC Maintain sat > 90% family does not want trach at this time GI NPO Continue sucralfate No PEG by family at this time Renal Strict I's & O's Monitor Urine output Aldactone ID febrile Warming blanket, hypothermic, check TSH, Procal, T4, and ID reccs ([place]) ofirmev Monitor Endo Synthroid 75 Insulin drip Maintain euglycemia 140-180 GI/DVT ppx: Protonix, no chemical anticoagulation Family does not want trach and peg at this time. Full code at this time. Family wants EEG before making decisions to w/d care. <Chetna Flores - Last Filed: 03/23/18 12:47> Objective - Vital Signs/Intake and Output Vital Signs (last 24 hours): Temp Pulse Resp BP Pulse Ox 96.8 F L 103 H 19 99/55 L 98 03/23/18 11:45 03/23/18 11:45 03/23/18 11:31 03/23/18 11:45 03/23/18 11:45 Intake and Output: 03/23/18 03/23/18 06:59 18:59 Intake Total 1196 813.7 Output Total 900 Balance 296 813.7 - Medications Medications: Current Medications Bacitracin (Bacitracin) 1 ea TOP BID PRN PRN Reason: ARM BLISTERS Sodium Chloride (Hypertonic Saline 3%) 500 mls @ 30 mls/hr IV .[id number] [facility] Last Admin: 03/15/18 10:50 Dose: 30 mls/hr Levetiracetam (Keppra 500mg Ivpb) 500 mg in 100 mls @ 400 mls/hr IV Q12 [facility] Last Admin: 03/23/18 09:14 Dose: 400 mls/hr Multivitamins/Vitamin C 10 ml/ (Dextrose) 1,010 mls @ 75 mls/hr IV .[id number] [facility] Last Admin: 03/23/18 09:13 Dose: 75 mls/hr Insulin Human Regular 100 (units/ Sodium Chloride) 100 mls @ 1 mls/hr IV .Q24H PRN; Protocol; 1 UNITS/HR PRN Reason: TITRATE PER MD ORDER Last Titration: 03/23/18 10:34 Dose: 1.5 units/hr, 1.5 mls/hr NOREPINEPHRINE BIT/0.9 % NACL (Levophed 4 Mg/ 250 Ml Ns Premixed) 4 mg in 250 mls @ 15 mls/hr IV .[id number] PRN; Protocol; 4 MCG/MIN PRN Reason: TITRATE PER MD ORDER Last Titration: 03/23/18 12:43 Dose: 20 mcg/min, 75 mls/hr Meropenem (Merrem Iv 1 Gm Premix) 50 mls @ 100 mls/hr IVPB Q8 [facility] PRN Reason: Protocol Stop: 03/30/18 10:46 Vancomycin HCl (Vancomycin 1gm) 1 gm in 250 mls @ 167 mls/hr IVPB Q12H [facility] PRN Reason: Protocol Insulin Human Lispro (Humalog High) 0 units SC ACHS [facility] PRN Reason: Protocol Last Admin: 03/17/18 08:59 Dose: Not Given Insulin Lispro Protam/Lispro Human (Humalog Mix 75/25) 15 units SC BIDAC [facility] Last Admin: 03/17/18 08:59 Dose: Not Given Labetalol HCl (Trandate) 10 mg IV Q4 PRN PRN Reason: Blood Pressure 220/110 & above Last Admin: 03/23/18 00:52 Dose: 2 ml Lactulose (Enulose) 30 gm PO TID [facility] Last Admin: 03/23/18 09:14 Dose: 30 gm Levothyroxine Sodium (Synthroid) 75 mcg PO 0600 [facility] Last Admin: 03/23/18 06:58 Dose: 75 mcg Ondansetron HCl (Zofran Inj) 4 mg IVP Q6H PRN PRN Reason: Nausea/Vomiting Last Admin: 03/15/18 00:14 Dose: 4 mg Pantoprazole Sodium (Protonix Inj) 40 mg IVP DAILY [facility] Last Admin: 03/23/18 09:16 Dose: 40 mg Rifaximin (Xifaxan) 550 mg PO BID [facility] PRN Reason: Protocol Last Admin: 03/23/18 09:15 Dose: 550 mg Sucralfate (Carafate Oral Susp) 1 gm PO 0600,1600 [facility] Last Admin: 03/23/18 06:56 Dose: 1 gm - Labs Labs: 03/23/18 06:00 03/23/18 06:00 PT 23.4 SECONDS (9.4-12.5) H 03/23/18 06:00 INR 2.01 (0.93-1.08) H 03/23/18 06:00 APTT 41.4 Seconds (25.1-36.5) H 03/23/18 06:00 Attending/Attestation - Attestation I have personally seen and examined this patient.: Yes I have fully participated in the care of the patient.: Yes I have reviewed all pertinent clinical information, including history, physical exam and plan: Yes Notes (Text): I have seen and examined the patient at bedside. Agree with the above note. Patient's prognosis is guarded. Patients family has now decided not to do trach and peg however patient remains full code. We had a detailed discussion with the patients [place]. He was informed about last night events. He is back on ventilator and is now on levophed. Patient is hypothermic. Will order work up. Patients POA reports that he is waiting for EEG to make further decision regarding care. Continue keppra, levothyroxine, lactulose and rifaxamin. Palliative care on board.
--- NOTE | 2018-03-23 12:04 | PN ---
DATE: 03/23/2018 SUBJECTIVE: Dilan was seen in the ICU with residents, their notes appreciated and I agree. The family has changed their mind, does not want any surgical intervention including gastrostomy, tracheostomy, and this will be canceled. I will be happy to follow the patient. Please recall us if necessary, but for now, it looks like it is permanent hold. Brenton Liriano MD
[2018-03-23] MEDS ORDERED: Bacitracin 500 Units/gm Oint Foilpak UD TOP PRN (12:16)
--- NOTE | 2018-03-23 13:14 | CT ---
PROCEDURE: CT CT scan brain dated 03/23/2018 HISTORY: Anoxic brain injury COMPARISON: Comparison made with CT scan brain 03/16/2018 TECHNIQUE: Contiguous helical/ transaxial computed tomography images were obtained through the head/brain without intravenous contrast. Radiation dose: Total exam DLP = 904.89 mGy-cm. This CT exam was performed using one or more of the following dose reduction techniques: Automated exposure control, adjustment of the mA and/or kV according to patient size, and/or use of iterative reconstruction technique. . FINDINGS: The current study re- demonstrates a large left posterior basal ganglia posterior temporal and posterior frontoparietal hemorrhage in that extends from near the skullbase to the vertex re- demonstrated is decompression of hemorrhage into the ventricular system however the amount of hemorrhage particularly in the atrium/occipital horn has increased. Additionally, there are areas of subarachnoid hemorrhage particularly notable in the right convexity with apparent subarachnoid hemorrhage seen along the interhemispheric fissure and tentorium and basilar cisterns. . . The large hematoma is surrounded by a wide rim of low-attenuation edema and or necrotic brain tissue. These changes exert considerable surrounding mass effect with overlying sulcal effacement and compression of the left lateral ventricle. There is shift of the of the left lateral ventricle on across midline. In addition, there appears to be uncal herniation. Septum pellucidum lies approximately 13.4 mm to the right of midline. Suspect tonsillar herniation. In addition, the lateral ventricular system has increased in size particularly the right temporal horn which may in fact be trapped. . . There is diffuse cerebral edema with loss of corticomedullary distinction consistent with this likely due to concurrent the severe anoxia. VENTRICLES: As above CALVARIUM: Calvarium appears intact. PARANASAL SINUSES: Unremarkable as visualized. No significant inflammatory changes. Mild mucosal thickening within the sphenoid sinus right chamber greater than left. There also appears to be some minimal mucosal thickening right maxillary antrum OTHER FINDINGS: In situ ETT rule and NGT. IMPRESSION: Re- demonstrated is a large hematoma which occupies a portion of the left cerebral hemisphere extending from the left posterior temporal region into the left basal ganglia parietal and posterior frontal regions to the vertex. The hemorrhage has decompressed into the ventricular system which appears to have increased. . There is also bilateral subarachnoid hemorrhage right greater than left. . The hematoma is surrounded by a wide margin of low-attenuation edema and or necrotic brain tissue both of which contribute to considerable surrounding mass effect with overlying sulcal effacement and compression of left lateral ventricle with the shifted across midline as detailed above. There is apparent uncal herniation as well. The suspect tonsillar herniation. The ventricles are dilated and have increased in size since prior study with the probable trapped right temporal horn. . Edema significant diffuse cerebral edema with loss of the cortical medullary junction. Findings suggest concomitant sequela of anoxia. Clinical correlation recommended.
--- NOTE | 2018-03-23 13:41 | CP.PCM.CON ---
History of Present Illness - History of Present Illness History of Present Illness: 62 year old male with PMH of chronic hepatitis C with liver cirrhosis with history of variceal bleeding and banding, end stage liver disease, DM initially came in to [facility] [place] because of probable hepatic encephalopathy. His status worsened despite treatment for this and the patient was eventually found to have a right sided intraparenchymal and interventricular bleed in the brain, with midline shift. The patient has been intubated since March 15. While on the ventilator, the patient yesterday progressively became more hypothermic, started developing leukocytosis. He is also now in need of vasopressor support. There is no note of convulsions, no vomiting, no diarrhea. Infectious Diseases consult is requested to further evaluate and manage. Review of Systems - Review of Systems All systems: reviewed and no additional remarkable complaints except (as per HPI ) Past Patient History - Infectious Disease Hx of Infectious Diseases: None - Tetanus Immunizations Tetanus Immunization: Unknown - Past Medical History & Family History Past Medical History?: Yes Past Family History: Reviewed and not pertinent - Past Social History Smoking Status: Light Smoker < 10 Cigarettes Daily Alcohol: None Drugs: Denies - CARDIAC Hx Pacemaker: No - PULMONARY Hx Respiratory Disorders: No - NEUROLOGICAL Hx Neurological Disorder: No - HEENT Hx HEENT Problems: No - RENAL Hx Chronic Kidney Disease: No - ENDOCRINE/METABOLIC Hx Diabetes Mellitus Type 1: Yes - HEMATOLOGICAL/ONCOLOGICAL Hx Cancer: No - INTEGUMENTARY Hx Dermatological Problems: No - MUSCULOSKELETAL/RHEUMATOLOGICAL Hx Musculoskeletal Disorders: No Hx Falls: Yes - GASTROINTESTINAL Hx Gastrointestinal Disorders: Yes Other/Comment: Liver Disease - GENITOURINARY/GYNECOLOGICAL Hx Genitourinary Disorders: No - PSYCHIATRIC Hx Psychophysiologic Disorder: No Hx Substance Use: No - SURGICAL HISTORY Hx Mastectomy: No - ANESTHESIA Hx Anesthesia: No Hx Anesthesia Reactions: No Meds Home Medications: Home Medication List Medication Instructions Recorded Confirmed Type Furosemide [Lasix] 40 mg PO DAILY #30 tablet 03/14/18 Rx Lactulose [Enulose] 30 gm PO TID #90 udc 03/14/18 Rx Pantoprazole [Protonix EC Tab] 40 mg PO 0600 #30 ect 03/14/18 Rx Spironolactone [Aldactone] 100 mg PO DAILY #30 tablet 03/14/18 Rx rifAXIMin [Xifaxan] 550 mg PO BID #60 tab 03/14/18 Rx Allergies/Adverse Reactions: Allergies Allergy/AdvReac Type Severity Reaction Status Date / Time No Known Allergies Allergy Verified 01/08/18 20:25 - Medications Medications: Current Medications Sodium Chloride (Hypertonic Saline 3%) 500 mls @ 30 mls/hr IV .[id number] [facility] Last Admin: 03/15/18 10:50 Dose: 30 mls/hr Levetiracetam (Keppra 500mg Ivpb) 500 mg in 100 mls @ 400 mls/hr IV Q12 [facility] Last Admin: 03/23/18 09:14 Dose: 400 mls/hr Multivitamins/Vitamin C 10 ml/ (Dextrose) 1,010 mls @ 75 mls/hr IV .[id number] [facility] Last Admin: 03/23/18 09:13 Dose: 75 mls/hr Insulin Human Regular 100 (units/ Sodium Chloride) 100 mls @ 1 mls/hr IV .Q24H PRN; Protocol; 1 UNITS/HR PRN Reason: TITRATE PER MD ORDER Last Titration: 03/23/18 02:01 Dose: 2 units/hr, 2 mls/hr NOREPINEPHRINE BIT/0.9 % NACL (Levophed 4 Mg/ 250 Ml Ns Premixed) 4 mg in 250 mls @ 15 mls/hr IV .[id number] PRN; Protocol; 4 MCG/MIN PRN Reason: TITRATE PER MD ORDER Last Admin: 03/23/18 09:17 Dose: 4 mcg/min, 15 mls/hr Meropenem (Merrem Iv 1 Gm Premix) 50 mls @ 100 mls/hr IVPB Q8 [facility] PRN Reason: Protocol Stop: 03/30/18 10:46 Vancomycin HCl (Vancomycin 1gm) 1 gm in 250 mls @ 167 mls/hr IVPB Q12H [facility] PRN Reason: Protocol Insulin Human Lispro (Humalog High) 0 units SC ACHS [facility] PRN Reason: Protocol Last Admin: 03/17/18 08:59 Dose: Not Given Insulin Lispro Protam/Lispro Human (Humalog Mix 75/25) 15 units SC BIDAC [facility] Last Admin: 03/17/18 08:59 Dose: Not Given Labetalol HCl (Trandate) 10 mg IV Q4 PRN PRN Reason: Blood Pressure 220/110 & above Last Admin: 03/23/18 00:52 Dose: 2 ml Lactulose (Enulose) 30 gm PO TID [facility] Last Admin: 03/23/18 09:14 Dose: 30 gm Levothyroxine Sodium (Synthroid) 75 mcg PO 0600 [facility] Last Admin: 03/23/18 06:58 Dose: 75 mcg Ondansetron HCl (Zofran Inj) 4 mg IVP Q6H PRN PRN Reason: Nausea/Vomiting Last Admin: 03/15/18 00:14 Dose: 4 mg Pantoprazole Sodium (Protonix Inj) 40 mg IVP DAILY [facility] Last Admin: 03/23/18 09:16 Dose: 40 mg Rifaximin (Xifaxan) 550 mg PO BID [facility] PRN Reason: Protocol Last Admin: 03/23/18 09:15 Dose: 550 mg Sucralfate (Carafate Oral Susp) 1 gm PO 0600,1600 [facility] Last Admin: 03/23/18 06:56 Dose: 1 gm Physical Exam - Constitutional Appears: Other (intubated, not responsive, on vasopressor support) - ENT Exam Additional comments: ET tube in place - Respiratory Exam Respiratory Exam: Decreased Breath Sounds, Rhonchi (scattered) - Cardiovascular Exam Cardiovascular Exam: +S1, +S2 - GI/Abdominal Exam GI & Abdominal Exam: Soft. absent: Tenderness - Extremities Exam Additional comments: right upper arm with PICC line in place Results - Vital Signs Recent Vital Signs: Last Vital Signs Temp 95.5 F L 03/23/18 10:00 Pulse 100 H 03/23/18 10:00 Resp 19 03/22/18 01:59 BP 97/60 L 03/23/18 10:00 Pulse Ox 99 03/23/18 10:00 - Labs Result Diagrams: 03/23/18 06:00 03/23/18 06:00 Labs: Laboratory Results - last 24 hr 03/22/18 03/22/18 03/22/18 11:00 12:45 16:15 WBC RBC Hgb Hct MCV MCH MCHC RDW Plt Count MPV Gran % Lymph % (Auto) [place] % (Auto) Eos % (Auto) Baso % (Auto) Gran # Lymph # (Auto) [place] # (Auto) Eos # (Auto) Baso # (Auto) Neutrophils % (Manual) Band Neutrophils % Lymphocytes % (Manual) Atypical Lymphs % Monocytes % (Manual) PT INR APTT pCO2 pO2 HCO3 ABG pH ABG Total CO2 ABG O2 Saturation ABG Base Excess ABG Potassium Glucose Lactate FiO2 Sodium Potassium Chloride Carbon Dioxide Anion Gap BUN Creatinine Est GFR ( Amer) Est GFR (Non-Af Amer) POC Glucose (mg/dL) 238 H 226 H 251 H Random Glucose Calcium Phosphorus Magnesium Total Bilirubin AST ALT Alkaline Phosphatase Ammonia Lactate Dehydrogenase Total Creatine Kinase Troponin I Total Protein Albumin Globulin Albumin/Globulin Ratio Arterial Blood Potassium 03/22/18 03/22/18 03/22/18 18:12 19:55 22:01 WBC RBC Hgb Hct MCV MCH MCHC RDW Plt Count MPV Gran % Lymph % (Auto) [place] % (Auto) Eos % (Auto) Baso % (Auto) Gran # Lymph # (Auto) [place] # (Auto) Eos # (Auto) Baso # (Auto) Neutrophils % (Manual) Band Neutrophils % Lymphocytes % (Manual) Atypical Lymphs % Monocytes % (Manual) PT INR APTT pCO2 pO2 HCO3 ABG pH ABG Total CO2 ABG O2 Saturation ABG Base Excess ABG Potassium Glucose Lactate FiO2 Sodium Potassium Chloride Carbon Dioxide Anion Gap BUN Creatinine Est GFR ( Amer) Est GFR (Non-Af Amer) POC Glucose (mg/dL) 244 H 249 H 252 H Random Glucose Calcium Phosphorus Magnesium Total Bilirubin AST ALT Alkaline Phosphatase Ammonia Lactate Dehydrogenase Total Creatine Kinase Troponin I Total Protein Albumin Globulin Albumin/Globulin Ratio Arterial Blood Potassium 03/23/18 03/23/18 03/23/18 00:25 02:00 02:30 WBC 14.2 H D RBC 3.89 Hgb 11.7 L Hct 36.4 L MCV 93.6 D MCH 30.1 MCHC 32.1 RDW 18.5 H Plt Count 70 L MPV 10.3 Gran % 87.4 H Lymph % (Auto) 6.7 L [place] % (Auto) 5.3 Eos % (Auto) 0.4 L Baso % (Auto) 0.2 Gran # 12.43 H Lymph # (Auto) 1.0 L [place] # (Auto) 0.8 H Eos # (Auto) 0.1 Baso # (Auto) 0.03 Neutrophils % (Manual) Band Neutrophils % Lymphocytes % (Manual) Atypical Lymphs % Monocytes % (Manual) PT INR APTT pCO2 pO2 HCO3 ABG pH ABG Total CO2 ABG O2 Saturation ABG Base Excess ABG Potassium Glucose Lactate FiO2 Sodium Potassium Chloride Carbon Dioxide Anion Gap BUN Creatinine Est GFR ( Amer) Est GFR (Non-Af Amer) POC Glucose (mg/dL) 249 H 226 H Random Glucose Calcium Phosphorus Magnesium Total Bilirubin AST ALT Alkaline Phosphatase Ammonia Lactate Dehydrogenase Total Creatine Kinase Troponin I Total Protein Albumin Globulin Albumin/Globulin Ratio Arterial Blood Potassium 03/23/18 03/23/18 03/23/18 02:30 02:30 03:30 WBC RBC Hgb Hct MCV MCH MCHC RDW Plt Count MPV Gran % Lymph % (Auto) [place] % (Auto) Eos % (Auto) Baso % (Auto) Gran # Lymph # (Auto) [place] # (Auto) Eos # (Auto) Baso # (Auto) Neutrophils % (Manual) Band Neutrophils % Lymphocytes % (Manual) Atypical Lymphs % Monocytes % (Manual) PT INR APTT pCO2 39 pO2 415.0 H HCO3 23.1 ABG pH 7.38 ABG Total CO2 24.3 ABG O2 Saturation 100.4 H ABG Base Excess -1.8 ABG Potassium 3.1 L Glucose 207 H Lactate 2.4 H FiO2 100.0 Sodium 152 H 147.0 Potassium 3.7 Chloride 117 H 121.0 H Carbon Dioxide 25 Anion Gap 14 BUN 19 Creatinine 0.8 Est GFR ( Amer) > 60 Est GFR (Non-Af Amer) > 60 POC Glucose (mg/dL) Random Glucose 245 H Calcium 7.7 L Phosphorus 4.9 H Magnesium 2.2 Total Bilirubin 13.9 H AST 75 H ALT 45 Alkaline Phosphatase 166 H Ammonia 210 H* Lactate Dehydrogenase 1159 H Total Creatine Kinase 46 Troponin I < 0.01 Total Protein 5.7 L Albumin 2.1 L Globulin 3.6 Albumin/Globulin Ratio 0.6 L Arterial Blood Potassium 3.1 L 03/23/18 03/23/18 03/23/18 04:03 05:54 06:00 WBC 15.8 H RBC 4.01 Hgb 11.8 L Hct 36.3 L MCV 90.5 D MCH 29.4 MCHC 32.5 RDW 18.3 H Plt Count 61 L MPV 9.7 Gran % 89.4 H Lymph % (Auto) 4.9 L [place] % (Auto) 4.9 Eos % (Auto) 0.6 L Baso % (Auto) 0.2 Gran # 14.13 H Lymph # (Auto) 0.8 L [place] # (Auto) 0.8 H Eos # (Auto) 0.1 Baso # (Auto) 0.03 Neutrophils % (Manual) 82 H Band Neutrophils % 8 H Lymphocytes % (Manual) 5 L Atypical Lymphs % 2 H Monocytes % (Manual) 3 PT INR APTT pCO2 pO2 HCO3 ABG pH ABG Total CO2 ABG O2 Saturation ABG Base Excess ABG Potassium Glucose Lactate FiO2 Sodium Potassium Chloride Carbon Dioxide Anion Gap BUN Creatinine Est GFR ( Amer) Est GFR (Non-Af Amer) POC Glucose (mg/dL) 216 H 180 H Random Glucose Calcium Phosphorus Magnesium Total Bilirubin AST ALT Alkaline Phosphatase Ammonia Lactate Dehydrogenase Total Creatine Kinase Troponin I Total Protein Albumin Globulin Albumin/Globulin Ratio Arterial Blood Potassium 03/23/18 03/23/18 03/23/18 06:00 06:00 07:32 WBC RBC Hgb Hct MCV MCH MCHC RDW Plt Count MPV Gran % Lymph % (Auto) [place] % (Auto) Eos % (Auto) Baso % (Auto) Gran # Lymph # (Auto) [place] # (Auto) Eos # (Auto) Baso # (Auto) Neutrophils % (Manual) Band Neutrophils % Lymphocytes % (Manual) Atypical Lymphs % Monocytes % (Manual) PT 23.4 H INR 2.01 H APTT 41.4 H pCO2 pO2 HCO3 ABG pH ABG Total CO2 ABG O2 Saturation ABG Base Excess ABG Potassium Glucose Lactate FiO2 Sodium 152 H Potassium 3.6 Chloride 116 H Carbon Dioxide 27 Anion Gap 14 BUN 22 H Creatinine 0.9 Est GFR ( Amer) > 60 Est GFR (Non-Af Amer) > 60 POC Glucose (mg/dL) 173 H Random Glucose 193 H Calcium 7.9 L Phosphorus 2.7 Magnesium 2.2 Total Bilirubin 14.6 H AST 75 H ALT 46 Alkaline Phosphatase 153 H Ammonia Lactate Dehydrogenase Total Creatine Kinase Troponin I Total Protein 5.7 L Albumin 2.0 L Globulin 3.7 Albumin/Globulin Ratio 0.5 L Arterial Blood Potassium Assessment & Plan - Assessment and Plan (Free Text) Plan: Assessment Systemic inflammatory response syndrome with hypotension / shock needing vasopressor support and ventilator-dependent respiratory failure due to encephalopathy from intracranial hemorrhage and hepatic encephalopathy, R/O severe sepsis from HCAP, R/O PICC-related bacteremia chronic hepatitis C with liver cirrhosis with history of variceal bleeding and banding end stage liver disease DM Plan Started the patient on Vancomycin and Merrem pending blood, urine cx, PCT, CXR overall prognosis is poor / grave will monitor clinically
[2018-03-23 14:00] LABS: VENOUS BLOOD GAS BASE EXCESS -1.7 mmol/L (0.0-2.0); VENOUS BLOOD GAS PO2 74 mm/Hg (30-55); VENOUS BLOOD PH 7.42 (7.32-7.43)
--- NOTE | 2018-03-23 14:05 | RAD ---
HISTORY: Rule out pneumonia COMPARISON: Comparison made with prior radiographs chest dated 03/17/2018 FINDINGS: Re- demonstrated is in situ right-sided PICC line with tip in the SVC as well as in situ NGT, the tip of which has not been included on this film though distal aspect does lie well below EG junction. In addition, there is an in situ ETT, the tip of which lies approximately 6.48 cm above zohra. . . LUNGS: Vague opacity seen in the right mid-lower lung zone consistent with atelectasis and or infiltrate. Mild bibasilar atelectasis PLEURA: No significant pleural effusion identified, no pneumothorax apparent. CARDIOVASCULAR: Heart size within range of normal. OSSEOUS STRUCTURES: No significant abnormalities. VISUALIZED UPPER ABDOMEN: Normal. OTHER FINDINGS: None. IMPRESSION: Support lines and tubes as above. Patchy opacity right mid to lower lung zone consistent with atelectasis or infiltrate. There is also mild bibasilar atelectasis
[2018-03-23] MEDS: Vancomycin 1gm in NS 250ml 1 GM/250 ML BAG IVPB SCH ×2 (14:12→21:57)
[2018-03-23] MEDS: Meropenem IV 1 gm in NS 50 ML IVPB SCH ×2 (14:12→21:56)
[2018-03-23 14:23] LABS: FREE T4 1.13 ng/dL (0.78-2.19)
[2018-03-24] MEDS: Sucralfate 1 gm/10 ml Oral Susp UD PO SCH ×2 (06:21→15:52)
[2018-03-24] MEDS: Meropenem IV 1 gm in NS 50 ML IVPB SCH ×2 (06:22→21:13)
[2018-03-24] MEDS: Multivitamin (MVI) 10 ML in Dextrose 5% In Water 1,000 ML IV SCH ×2 (06:22→17:26)
[2018-03-24] MEDS: Levothyroxine 75 MCG TAB PO SCH (06:23)
[2018-03-24] MEDS: NOREPINEPHRINE BIT/0.9 % NACL 4 MG/250 ML BAG IV PRN ×5 (06:28→22:30)
--- NOTE | 2018-03-24 07:48 | CP.PCM.PN ---
<Jacinto Lea - Last Filed: 03/24/18 14:45> Subjective - Date & Time of Evaluation Date of Evaluation: 03/24/18 Time of Evaluation: 07:45 - Subjective Subjective: Medicine Note for Dr. Leavitt Patient seen and examined at bedside. No acute event overnight. Patient is unresponsive to any type of stimuli. He is now on two pressors. Patient has poor prognosis. Family wants everything done until repeat EEG is completed. Objective - Vital Signs/Intake and Output Vital Signs (last 24 hours): Temp Pulse Resp BP Pulse Ox 97.9 F 102 H 18 108/58 L 97 03/24/18 05:30 03/24/18 05:30 03/24/18 03:59 03/24/18 05:30 03/24/18 05:30 Intake and Output: 03/24/18 03/24/18 06:59 18:59 Intake Total 1750 Output Total 65 Balance 1685 - Medications Medications: Current Medications Bacitracin (Bacitracin) 1 ea TOP BID PRN PRN Reason: ARM BLISTERS Last Admin: 03/23/18 14:10 Dose: 1 ea Hydrocortisone Sodium Succinate (Solu-Cortef) 80 mg IVP Q8 [facility] Last Admin: 03/24/18 06:21 Dose: 80 mg Sodium Chloride (Hypertonic Saline 3%) 500 mls @ 30 mls/hr IV .[id number] [facility] Last Admin: 03/15/18 10:50 Dose: 30 mls/hr Levetiracetam (Keppra 500mg Ivpb) 500 mg in 100 mls @ 400 mls/hr IV Q12 [facility] Last Admin: 03/23/18 21:57 Dose: 400 mls/hr Multivitamins/Vitamin C 10 ml/ (Dextrose) 1,010 mls @ 75 mls/hr IV .[id number] [facility] Last Admin: 03/24/18 06:22 Dose: 75 mls/hr NOREPINEPHRINE BIT/0.9 % NACL (Levophed 4 Mg/ 250 Ml Ns Premixed) 4 mg in 250 mls @ 15 mls/hr IV .[id number] PRN; Protocol; 4 MCG/MIN PRN Reason: TITRATE PER MD ORDER Last Admin: 03/24/18 06:28 Dose: 25 mcg/min, 93.75 mls/hr Meropenem (Merrem Iv 1 Gm Premix) 50 mls @ 100 mls/hr IVPB Q8 [facility] PRN Reason: Protocol Stop: 03/30/18 10:46 Last Admin: 03/24/18 06:22 Dose: 100 mls/hr Vancomycin HCl (Vancomycin 1gm) 1 gm in 250 mls @ 167 mls/hr IVPB Q12H [facility] PRN Reason: Protocol Last Admin: 03/23/18 21:57 Dose: 167 mls/hr Phenylephrine HCl 40 mg/ (Sodium Chloride) 254 mls @ 38.1 mls/hr IV .Q6H40M PRN ; Protocol; 100 MCG/MIN PRN Reason: TITRATE PER MD ORDER Last Admin: 03/24/18 01:01 Dose: 100 mcg/min, 38.1 mls/hr Insulin Detemir (Levemir) 20 unit SC Q12H [facility] Insulin Human Regular (Humulin R Low) 0 units SC ACHS [facility] PRN Reason: Protocol Labetalol HCl (Trandate) 10 mg IV Q4 PRN PRN Reason: Blood Pressure 220/110 & above Last Admin: 03/23/18 00:52 Dose: 2 ml Lactulose (Enulose) 30 gm PO TID [facility] Last Admin: 03/23/18 17:15 Dose: 30 gm Levothyroxine Sodium (Synthroid) 75 mcg PO 0600 [facility] Last Admin: 03/24/18 06:23 Dose: 75 mcg Ondansetron HCl (Zofran Inj) 4 mg IVP Q6H PRN PRN Reason: Nausea/Vomiting Last Admin: 03/15/18 00:14 Dose: 4 mg Pantoprazole Sodium (Protonix Inj) 40 mg IVP DAILY [facility] Last Admin: 03/23/18 09:16 Dose: 40 mg Rifaximin (Xifaxan) 550 mg PO BID [facility] PRN Reason: Protocol Last Admin: 03/23/18 17:15 Dose: 550 mg Sucralfate (Carafate Oral Susp) 1 gm PO 0600,1600 [facility] Last Admin: 03/24/18 06:21 Dose: 1 gm - Labs Labs: 03/23/18 06:00 03/23/18 06:00 PT 23.4 SECONDS (9.4-12.5) H 03/23/18 06:00 INR 2.01 (0.93-1.08) H 03/23/18 06:00 APTT 41.4 Seconds (25.1-36.5) H 03/23/18 06:00 - Constitutional Appears: Chronically Ill - Head Exam Head Exam: NORMOCEPHALIC - Eye Exam Eye Exam: Scleral icterus - ENT Exam ENT Exam: Mucous Membranes Dry - Respiratory Exam Additional comments: intubated and on PRVC vent support (450, 5, 18, 50%) - Cardiovascular Exam Cardiovascular Exam: REGULAR RHYTHM - GI/Abdominal Exam GI & Abdominal Exam: Distended - Extremities Exam Additional comments: numerous skin breaks on all four extremities, optiform bandages covering - Back Exam Back Exam: absent: CVA tenderness (L), CVA tenderness (R) - Neurological Exam Neurological Exam: Altered - Psychiatric Exam Psychiatric exam: Flat Affect - Skin Skin Exam: Dry, Warm Assessment and Plan - Assessment and Plan (Free Text) Plan: Neuro f/u EEG (03/23) Head CT: Re- demonstrated is a large hematoma which occupies a portion of the left cerebral hemisphere extending from the left posterior temporal region into the left basal ganglia parietal and posterior frontal regions to the vertex. bilateral subarachnoid hemorrhage. wide margin of low-attenuation edema and or necrotic brain tissue. surrounding mass effect with overlying sulcal effacement and compression of left lateral ventricle with the shifted across midline. apparent uncal herniation. suspected tonsillar herniation. diffuse cerebral edema with loss of the cortical medullary junction (see full report) (03/15) Head CT showed massive hemorrhage in left partietal lobe extending to cortical surface with 11mm of midline shift (03/16) head CT showed new subarachnoid hemorrhage over the right hemisphere Neurosurgery consult, no surgical intervention, poor prognosis Neurology consult, help appreciated keppra lactulose and rifaximin Palliative care consult HOB 30 degrees Cardio Levophed Phenyephrine Maintain MAP > 65 Pulm Intubated, PRVC Maintain sat > 90% family does not want trach at this time GI NPO Continue sucralfate No PEG by family at this time Renal Strict I's & O's Monitor Urine output Aldactone ID febrile ID consult ofirmev Monitor Endo Synthroid 75 ISS Maintain euglycemia 140-180 GI/DVT ppx: Protonix, no chemical anticoagulation Disp: Patient has poor prognosis. Family does not want trach and peg at this time. Full code at this time. Family wants EEG before making decision. Recommend apnea and/or cerebral blood flow test to assess for brain . Case discussed with Dr. Dagmar Lea PGY1 <Jona Leavitt - Last Filed: 03/25/18 14:48> Objective - Vital Signs/Intake and Output Vital Signs (last 24 hours): Temp Pulse Resp BP Pulse Ox 95.4 F L 87 21 112/59 L 97 03/25/18 11:30 03/25/18 11:30 03/24/18 15:59 03/25/18 11:30 03/25/18 11:30 Intake and Output: 03/25/18 03/25/18 06:59 18:59 Intake Total 2153 255 Output Total 50 Balance 2103 255 - Medications Medications: Current Medications Bacitracin (Bacitracin) 1 ea TOP BID PRN PRN Reason: ARM BLISTERS Last Admin: 03/23/18 14:10 Dose: 1 ea Hydrocortisone Sodium Succinate (Solu-Cortef) 80 mg IVP Q8 [facility] Last Admin: 03/25/18 05:00 Dose: 80 mg Sodium Chloride (Hypertonic Saline 3%) 500 mls @ 30 mls/hr IV .[id number] [facility] Last Admin: 03/15/18 10:50 Dose: 30 mls/hr Levetiracetam (Keppra 500mg Ivpb) 500 mg in 100 mls @ 400 mls/hr IV Q12 [facility] Last Admin: 03/25/18 10:00 Dose: 400 mls/hr Multivitamins/Vitamin C 10 ml/ (Dextrose) 1,010 mls @ 75 mls/hr IV .[id number] [facility] Last Admin: 03/25/18 10:01 Dose: 75 mls/hr NOREPINEPHRINE BIT/0.9 % NACL (Levophed 4 Mg/ 250 Ml Ns Premixed) 4 mg in 250 mls @ 15 mls/hr IV .[id number] PRN; Protocol; 4 MCG/MIN PRN Reason: TITRATE PER MD ORDER Last Admin: 03/25/18 09:11 Dose: 8 mcg/min, 30 mls/hr Vancomycin HCl (Vancomycin 1gm) 1 gm in 250 mls @ 167 mls/hr IVPB Q12H [facility] PRN Reason: Protocol Last Admin: 03/25/18 09:58 Dose: 167 mls/hr Phenylephrine HCl 40 mg/ (Sodium Chloride) 254 mls @ 38.1 mls/hr IV .Q6H40M PRN ; Protocol; 100 MCG/MIN PRN Reason: TITRATE PER MD ORDER Last Admin: 03/25/18 09:10 Dose: 40 mcg/min, 15.24 mls/hr Meropenem (Merrem Iv 1 Gm Premix) 50 mls @ 100 mls/hr IVPB Q12 [facility] PRN Reason: Protocol Last Admin: 03/25/18 09:59 Dose: 100 mls/hr Insulin Detemir (Levemir) 20 unit SC Q12H [facility] Last Admin: 03/25/18 08:20 Dose: 20 unit Insulin Human Regular (Humulin R Low) 0 units SC ACHS [facility] PRN Reason: Protocol Last Admin: 03/25/18 08:21 Dose: 1 units Labetalol HCl (Trandate) 10 mg IV Q4 PRN PRN Reason: Blood Pressure 220/110 & above Last Admin: 03/23/18 00:52 Dose: 2 ml Lactulose (Enulose) 30 gm PO Q4H [facility] Last Admin: 03/25/18 09:57 Dose: 30 gm Levothyroxine Sodium (Synthroid) 75 mcg PO 0600 [facility] Last Admin: 03/25/18 05:00 Dose: 75 mcg Ondansetron HCl (Zofran Inj) 4 mg IVP Q6H PRN PRN Reason: Nausea/Vomiting Last Admin: 03/15/18 00:14 Dose: 4 mg Pantoprazole Sodium (Protonix Inj) 40 mg IVP DAILY [facility] Last Admin: 03/24/18 09:50 Dose: 40 mg Rifaximin (Xifaxan) 550 mg PO BID [facility] PRN Reason: Protocol Last Admin: 03/25/18 09:58 Dose: 550 mg Sucralfate (Carafate Oral Susp) 1 gm PO 0600,1600 [facility] Last Admin: 03/25/18 05:00 Dose: 1 gm - Labs Labs: 03/25/18 07:01 03/25/18 07:01 PT 29.8 SECONDS (9.4-12.5) H 03/25/18 07:01 INR 2.54 (0.93-1.08) H 03/25/18 07:01 APTT 53.9 Seconds (25.1-36.5) H 03/25/18 07:01 Attending/Attestation - Attestation I have personally seen and examined this patient.: Yes I have fully participated in the care of the patient.: Yes I have reviewed all pertinent clinical information, including history, physical exam and plan: Yes Notes (Text): 03/25/18 14:43 Medical record note made by the resident after discussion with my direction and input after the patient was personally seen and examined by me. I have reviewed the chart and agree that the record accurately reflects by personal performance of the history, physical exam, data review, and medical decision-making, in the course for the patient. I have also personally directed the plan of care. 62 yrs old male with PMH of Hep c ,chronic liver disease, Thrombocytopenia , Ascites was admitted with change of mental status due to hepatic encephlopathy.He initially responded well to lactulose , however his mental status deteriorated and Patient developed intracranial hemorrhage with midline shift on 03/15/18, he was intubated for air way protection .He had cardiac arrest on 03/23/18 and was resuscitated.He is unresponsive today, Pupils are dilated.There is no gag reflex and no respiration.He is awaiting for Brain Flow nuclear study before extubation. Case was discussed with ICU team. Prognosis is guarded. Management plan was discussed in detail with patient, has poor insight , need reinforcement.
[2018-03-24 08:10] LABS: ARTERIAL BLOOD GAS HCO3 17.8 mmol/L (21-28); ARTERIAL BLOOD GAS O2 CONTENT 14.5 ML/dl (15-23); ARTERIAL BLOOD GAS O2 SAT 96.9 % (95-98); ARTERIAL BLOOD GAS PCO2 37 mm/Hg (35-45); ARTERIAL BLOOD GAS PH 7.29 (7.35-7.45); ARTERIAL BLOOD GAS TCO2 18.9 mmol.L (22-28)
[2018-03-24 08:37] LABS: BASO # 0.03 K/mm3 (0.0-2.0); BASO % 0.1 % (0.0-3.0); GRAN # 20.09 (1.4-6.5); GRAN % 94.2 % (50.0-68.0); HEMOGLOBIN 11.8 g/dL (14.0-18.0); LYMPH # 0.5 (1.2-3.4); LYMPH % 2.4 % (22.0-35.0); MEAN CELL VOLUME 90.3 fl (80.0-105.0); MEAN CORPUSCULAR HEMOGLOBIN 29.5 pg (25.0-35.0); MEAN CORPUSCULAR HGB CONC 32.7 g/dl (31.0-37.0); MEAN PLATELET VOLUME 10.3 fl (7.0-11.0); MONO # 0.7 (0.1-0.6); MONO % 3.3 % (1.0-6.0); RED CELL DISTRIBUTION WIDTH 19.3 % (11.5-14.5); WHITE BLOOD COUNT 21.4 10^3/ul (4.5-11.0)
[2018-03-24 08:46] LABS: INR 2.31 (0.93-1.08); PARTIAL THROMBOPLASTIN TIME 46.5 Seconds (25.1-36.5)
[2018-03-24 08:52] LABS: ALB/GLOB RATIO 0.5 (1.1-1.8); CALCIUM 7.3 mg/dL (8.4-10.5)
[2018-03-24] MEDS: Insulin Detemir 100 units/ml Vial (Levemir) SC SCH ×2 (09:50→21:00)
[2018-03-24] MEDS: levETIRAcetam 500mg IVPB 500 MG/100 ML BAG IV SCH ×2 (09:51→21:14)
[2018-03-24] MEDS: Vancomycin 1gm in NS 250ml 1 GM/250 ML BAG IVPB SCH ×2 (09:52→22:29)
--- NOTE | 2018-03-24 11:06 | CP.PCM.PN ---
Subjective - Date & Time of Evaluation Date of Evaluation: 03/24/18 Time of Evaluation: 09:20 - Subjective Subjective: Patient continues to be on the ventilator, still with bouts of hypothermia, has loose stools this morning. Objective - Vital Signs/Intake and Output Vital Signs (last 24 hours): Temp Pulse Resp BP Pulse Ox 97.9 F 102 H 18 108/58 L 97 03/24/18 05:30 03/24/18 05:30 03/24/18 03:59 03/24/18 05:30 03/24/18 05:30 Intake and Output: 03/23/18 03/24/18 18:59 06:59 Intake Total 3190.8 500 Output Total 100 Balance 3090.8 500 - Medications Medications: Current Medications Bacitracin (Bacitracin) 1 ea TOP BID PRN PRN Reason: ARM BLISTERS Last Admin: 03/23/18 14:10 Dose: 1 ea Hydrocortisone Sodium Succinate (Solu-Cortef) 80 mg IVP Q8 [facility] Last Admin: 03/24/18 06:21 Dose: 80 mg Sodium Chloride (Hypertonic Saline 3%) 500 mls @ 30 mls/hr IV .[id number] [facility] Last Admin: 03/15/18 10:50 Dose: 30 mls/hr Levetiracetam (Keppra 500mg Ivpb) 500 mg in 100 mls @ 400 mls/hr IV Q12 [facility] Last Admin: 03/23/18 21:57 Dose: 400 mls/hr Multivitamins/Vitamin C 10 ml/ (Dextrose) 1,010 mls @ 75 mls/hr IV .[id number] [facility] Last Admin: 03/24/18 06:22 Dose: 75 mls/hr Insulin Human Regular 100 (units/ Sodium Chloride) 100 mls @ 1 mls/hr IV .Q24H PRN; Protocol; 1 UNITS/HR PRN Reason: TITRATE PER MD ORDER Last Titration: 03/23/18 15:59 Dose: 1 units/hr, 1 mls/hr NOREPINEPHRINE BIT/0.9 % NACL (Levophed 4 Mg/ 250 Ml Ns Premixed) 4 mg in 250 mls @ 15 mls/hr IV .[id number] PRN; Protocol; 4 MCG/MIN PRN Reason: TITRATE PER MD ORDER Last Admin: 03/24/18 06:28 Dose: 25 mcg/min, 93.75 mls/hr Meropenem (Merrem Iv 1 Gm Premix) 50 mls @ 100 mls/hr IVPB Q8 [facility] PRN Reason: Protocol Stop: 03/30/18 10:46 Last Admin: 03/24/18 06:22 Dose: 100 mls/hr Vancomycin HCl (Vancomycin 1gm) 1 gm in 250 mls @ 167 mls/hr IVPB Q12H [facility] PRN Reason: Protocol Last Admin: 03/23/18 21:57 Dose: 167 mls/hr Phenylephrine HCl 40 mg/ (Sodium Chloride) 254 mls @ 38.1 mls/hr IV .Q6H40M PRN ; Protocol; 100 MCG/MIN PRN Reason: TITRATE PER MD ORDER Last Admin: 03/24/18 01:01 Dose: 100 mcg/min, 38.1 mls/hr Insulin Human Lispro (Humalog High) 0 units SC ACHS [facility] PRN Reason: Protocol Last Admin: 03/17/18 08:59 Dose: Not Given Insulin Lispro Protam/Lispro Human (Humalog Mix 75/25) 15 units SC BIDAC [facility] Last Admin: 03/17/18 08:59 Dose: Not Given Labetalol HCl (Trandate) 10 mg IV Q4 PRN PRN Reason: Blood Pressure 220/110 & above Last Admin: 03/23/18 00:52 Dose: 2 ml Lactulose (Enulose) 30 gm PO TID [facility] Last Admin: 03/23/18 17:15 Dose: 30 gm Levothyroxine Sodium (Synthroid) 75 mcg PO 0600 [facility] Last Admin: 03/24/18 06:23 Dose: 75 mcg Ondansetron HCl (Zofran Inj) 4 mg IVP Q6H PRN PRN Reason: Nausea/Vomiting Last Admin: 03/15/18 00:14 Dose: 4 mg Pantoprazole Sodium (Protonix Inj) 40 mg IVP DAILY [facility] Last Admin: 03/23/18 09:16 Dose: 40 mg Rifaximin (Xifaxan) 550 mg PO BID [facility] PRN Reason: Protocol Last Admin: 03/23/18 17:15 Dose: 550 mg Sucralfate (Carafate Oral Susp) 1 gm PO 0600,1600 [facility] Last Admin: 03/24/18 06:21 Dose: 1 gm - Labs Labs: 03/23/18 06:00 03/23/18 06:00 PT 23.4 SECONDS (9.4-12.5) H 03/23/18 06:00 INR 2.01 (0.93-1.08) H 03/23/18 06:00 APTT 41.4 Seconds (25.1-36.5) H 03/23/18 06:00 - Constitutional Appears: Other (intubated, unresponsive) - ENT Exam Additional comments: ET tube in place - Respiratory Exam Respiratory Exam: Decreased Breath Sounds - Cardiovascular Exam Cardiovascular Exam: +S1, +S2 - GI/Abdominal Exam GI & Abdominal Exam: Soft. absent: Tenderness - Extremities Exam Additional comments: right arm PICC line in place Assessment and Plan - Assessment and Plan (Free Text) Plan: Assessment Systemic inflammatory response syndrome with hypotension / shock needing vasopressor support and ventilator-dependent respiratory failure due to encephalopathy from intracranial hemorrhage and hepatic encephalopathy, R/O severe sepsis from HCAP, R/O PICC-related bacteremia R/OP C diff associated diarrhea chronic hepatitis C with liver cirrhosis with history of variceal bleeding and banding end stage liver disease DM Plan continue Vancomycin and Merrem day 2 pending blood, urine cx; PCT is 1.82 will also check stool for C. diff. overall prognosis is poor / grave will continue to monitor clinically
--- NOTE | 2018-03-24 11:12 | CP.CCUPN ---
<Doug Odonnell - Last Filed: 03/24/18 11:06> CCU Subjective - Physician Review Subjective (Free Text): ICU Progress Note Pt seen and examined at bedside. No acute overnight events. Patient remains intubated or PRVC, off sedation. Patient now on 2 pressors s/p cardiac arrest with ROSC over the weekend. ROS limited due to patient's mental status. CCU Objective - Vital Signs / Intake & Output Vital Signs (Last 4 hours): Vital Signs Temp Pulse BP Pulse Ox 03/24/18 10:30 96.6 F L 97 H 118/63 95 03/24/18 10:15 96.8 F L 97 H 103/53 L 95 03/24/18 10:01 97.3 F L 102 H 92/54 L 96 03/24/18 10:00 97.5 F L 102 H 97 03/24/18 09:46 97.5 F L 100 H 106/55 L 95 03/24/18 09:30 97.5 F L 101 H 100/53 L 94 L 03/24/18 09:15 97.5 F L 102 H 111/55 L 95 03/24/18 09:00 97.5 F L 102 H 109/70 95 03/24/18 08:59 97.5 F L 102 H 95 03/24/18 08:45 97.9 F 102 H 121/65 96 03/24/18 08:31 97.7 F 101 H 133/77 96 03/24/18 08:15 97.7 F 99 H 75/41 L 94 L 03/24/18 08:00 97.7 F 103 H 129/67 95 03/24/18 07:45 97.7 F 104 H 114/59 L 94 L 03/24/18 07:30 97.7 F 103 H 125/65 94 L 03/24/18 07:15 97.9 F 103 H 127/70 94 L Intake and Output (Last 8hrs): Intake & Output 03/23/18 03/24/18 03/24/18 22:59 06:59 14:59 Intake Total 2477.6 1500 250 Output Total 100 65 Balance 2377.6 1435 250 Intake: IV 2477.6 1500 250 Left Forearm 1050 keppra 100 multi vit 750 1250 Output: Urine 100 65 Urethral (Serna) 100 65 Other: # Bowel Movements 2 - Physical Exam Head: Positive for: Atraumatic, Normocephalic Pupils: Positive for: Other (4 mm non-responsive) Extroacular Muscles: Positive for: EOMI Conjunctiva: Positive for: Normal. Negative for: Injected Ears: Positive for: Normal Mouth: Positive for: Moist Mucous Membranes, Other (intubated) Nose (External): Positive for: Atraumatic Neck: Positive for: Trachea Midline Respiratory/Chest: Positive for: Decreased Breath Sounds, Other (intubated) Cardiovascular: Positive for: Regular Rate and Rhythm, Normal S1, S2. Negative for: Murmurs, Tachycardic Abdomen: Positive for: Normal Bowel Sounds. Negative for: Tenderness, Distention, Peritoneal Signs, Rebound, Guarding, Mass/Organomegaly Back: Positive for: Normal Inspection Upper Extremity: Positive for: Normal Inspection. Negative for: Cyanosis, Edema Lower Extremity: Positive for: Normal Inspection, NORMAL PULSES. Negative for: Edema, CALF TENDERNESS Neurological: Positive for: Other (GCS 3, no gag present, no corneal reflex, triple flexor present, upgoing babinski) Skin: Positive for: Warm, Dry, Normal Color. Negative for: Rashes Psychiatric: Positive for: Other (altered) - Medications Active Medications: Active Medications Generic Name Dose Route Start Last Admin Trade Name Freq PRN Reason Stop Dose Admin Bacitracin 1 ea 03/23/18 12:16 03/23/18 14:10 Bacitracin TOP 1 ea BID PRN Administration ARM BLISTERS Hydrocortisone Sodium Succinate 80 mg 03/24/18 00:30 03/24/18 06:21 Solu-Cortef IVP 80 mg Q8 KAVIN Administration Sodium Chloride 500 mls @ 30 mls/hr 03/15/18 09:45 03/15/18 10:50 Hypertonic Saline 3% IV 30 mls/hr .[id number] KAVIN Administration Levetiracetam 500 mg in 100 mls @ 400 mls/hr 03/15/18 12:00 03/24/18 09:51 Keppra 500mg Ivpb IV 400 mls/hr Q12 KAVIN Administration Multivitamins/Vitamin C 10 ml/ 1,010 mls @ 75 mls/hr 03/20/18 17:15 03/24/18 06:22 Dextrose IV 75 mls/hr .[id number] KAVIN Administration NOREPINEPHRINE BIT/0.9 % NACL 4 mg in 250 mls @ 15 mls/hr 03/23/18 02:22 09:45 Levophed 4 Mg/ 250 Ml Ns Premixed IV 25 mcg/min .[id number] PRN 93.75 mls/hr TITRATE PER MD ORDER Administration Protocol 4 MCG/MIN Vancomycin HCl 1 gm in 250 mls @ 167 mls/hr 03/23/18 10:45 03/24/18 09:52 Vancomycin 1gm IVPB 167 mls/hr Q12H KAVIN Administration Protocol Phenylephrine HCl 40 mg/ 254 mls @ 38.1 mls/hr 03/24/18 00:25 03/24/18 01:01 Sodium Chloride IV 100 mcg/min .[id number] PRN 38.1 mls/hr TITRATE PER MD ORDER Administration Protocol 100 MCG/MIN Meropenem 50 mls @ 100 mls/hr 03/24/18 10:09 Merrem Iv 1 Gm Premix IVPB Q12 [facility] Protocol Insulin Detemir 20 unit 03/24/18 08:00 03/24/18 09:50 Levemir SC 20 unit Q12H KAVIN Administration Insulin Human Regular 0 units 03/24/18 11:30 Humulin R Low SC ACHS [facility] Protocol Labetalol HCl 10 mg 03/15/18 03:08 03/23/18 00:52 Trandate IV 2 ml Q4 PRN Administration Blood Pressure 220/110 & above Lactulose 30 gm 03/24/18 09:30 03/24/18 09:50 Enulose PO 30 gm Q4H KAVIN Administration Levothyroxine Sodium 75 mcg 03/17/18 09:51 03/24/18 06:23 Synthroid PO 75 mcg 0600 KAVIN Administration Ondansetron HCl 4 mg 03/14/18 23:32 03/15/18 00:14 Zofran Inj IVP 4 mg Q6H PRN Administration Nausea/Vomiting Pantoprazole Sodium 40 mg 03/18/18 10:00 03/24/18 09:50 Protonix Inj IVP 40 mg DAILY KAVIN Administration Rifaximin 550 mg 03/21/18 10:00 03/24/18 09:51 Xifaxan PO 550 mg BID KAVIN Administration Protocol Sucralfate 1 gm 03/20/18 16:00 03/24/18 06:21 Carafate Oral Susp PO 1 gm 0600,1600 KAVIN Administration - Patient Studies Lab Studies: Lab Studies 03/24/18 03/24/18 03/24/18 Range/Units 08:20 08:20 08:20 WBC (4.5-11.0) 10^3/ul RBC (3.5-6.1) 10^6/uL Hgb (14.0-18.0) g/dL Hct (42.0-52.0) % MCV (80.0-105.0) fl MCH (25.0-35.0) pg MCHC (31.0-37.0) g/dl RDW (11.5-14.5) % Plt Count (120.0-450.0) 10^3/uL MPV (7.0-11.0) fl Gran % (50.0-68.0) % Lymph % (Auto) (22.0-35.0) % [place] % (Auto) (1.0-6.0) % Eos % (Auto) (1.5-5.0) % Baso % (Auto) (0.0-3.0) % Gran # (1.4-6.5) Lymph # (Auto) (1.2-3.4) [place] # (Auto) (0.1-0.6) Eos # (Auto) (0.0-0.7) Baso # (Auto) (0.0-2.0) K/mm3 PT 27.0 H (9.4-12.5) SECONDS INR 2.31 H (0.93-1.08) APTT 46.5 H (25.1-36.5) Seconds pCO2 (35-45) mm/Hg pO2 (30-55) mm/Hg HCO3 (21-28) mmol/L ABG pH (7.35-7.45) ABG Total CO2 (22-28) mmol.L ABG O2 Saturation (95-98) % ABG O2 Content (15-23) ML/dl ABG Base Excess (-2.0-3.0) mmol/L ABG Hemoglobin (11.7-17.4) g/dL ABG Carboxyhemoglobin (0.5-1.5) % POC ABG HHb (Measured) (0-5) % ABG Methemoglobin (0.0-3.0) % ABG O2 Capacity (16-24) mL/dl VBG pH (7.32-7.43) VBG pCO2 (40-60) VBG HCO3 (21-28) mmol/l VBG Total CO2 (22-28) mmol.L VBG O2 Sat (Calc) (40-65) % VBG Base Excess (0.0-2.0) mmol/L VBG Potassium (3.6-5.2) mmol/L Hgb O2 Saturation (95.0-98.0) % Sodium 149 H (132-148) mmol/L Chloride 117 H (98-107) mmol/L Glucose (75-110) mg/dl Lactate (0.7-2.1) mmol/L FiO2 % Potassium 4.3 (3.6-5.0) mmol/L Carbon Dioxide 20 L (21-33) mmol/L Anion Gap 17 (10-20) BUN 30 H (7-21) mg/dL Creatinine 1.9 H (0.8-1.5) mg/dl Est GFR ( Amer) 44 Est GFR (Non-Af Amer) 36 POC Glucose (mg/dL) (65-110) mg/dL Random Glucose 115 H (70-110) mg/dL Calcium 7.3 L (8.4-10.5) mg/dL Phosphorus 5.5 H (2.5-4.5) mg/dL Magnesium 1.8 (1.7-2.2) mg/dL Total Bilirubin 18.3 H* (0.2-1.3) mg/dL AST 90 H (17-59) U/L ALT 50 (7-56) U/L Alkaline Phosphatase 174 H (38-126) U/L Ammonia 305 H* (9-33) umol/L Total Protein 5.9 (5.8-8.3) g/dL Albumin 2.0 L (3.0-4.8) g/dL Globulin 3.8 gm/dL Albumin/Globulin Ratio 0.5 L (1.1-1.8) Procalcitonin (0.19-0.49) NG/ML Free T4 (0.78-2.19) ng/dL TSH 3rd Generation (0.46-4.68) mIU/mL Venous Blood Potassium (3.6-5.2) mmol/L 03/24/18 03/24/18 03/24/18 Range/Units 08:20 08:00 06:17 WBC 21.4 H D (4.5-11.0) 10^3/ul RBC 4.00 (3.5-6.1) 10^6/uL Hgb 11.8 L (14.0-18.0) g/dL Hct 36.1 L (42.0-52.0) % MCV 90.3 (80.0-105.0) fl MCH 29.5 (25.0-35.0) pg MCHC 32.7 (31.0-37.0) g/dl RDW 19.3 H (11.5-14.5) % Plt Count 51 L (120.0-450.0) 10^3/uL MPV 10.3 (7.0-11.0) fl Gran % 94.2 H (50.0-68.0) % Lymph % (Auto) 2.4 L (22.0-35.0) % [place] % (Auto) 3.3 (1.0-6.0) % Eos % (Auto) 0.0 L (1.5-5.0) % Baso % (Auto) 0.1 (0.0-3.0) % Gran # 20.09 H (1.4-6.5) Lymph # (Auto) 0.5 L (1.2-3.4) [place] # (Auto) 0.7 H (0.1-0.6) Eos # (Auto) 0.0 (0.0-0.7) Baso # (Auto) 0.03 (0.0-2.0) K/mm3 PT (9.4-12.5) SECONDS INR (0.93-1.08) APTT (25.1-36.5) Seconds pCO2 37 (35-45) mm/Hg pO2 75.0 L (30-55) mm/Hg HCO3 17.8 L (21-28) mmol/L ABG pH 7.29 L (7.35-7.45) ABG Total CO2 18.9 L (22-28) mmol.L ABG O2 Saturation 96.9 (95-98) % ABG O2 Content 14.5 L (15-23) ML/dl ABG Base Excess -8.1 L (-2.0-3.0) mmol/L ABG Hemoglobin 11.0 L (11.7-17.4) g/dL ABG Carboxyhemoglobin 2.7 H (0.5-1.5) % POC ABG HHb (Measured) 3.0 (0-5) % ABG Methemoglobin 1.0 (0.0-3.0) % ABG O2 Capacity 15.0 L (16-24) mL/dl VBG pH (7.32-7.43) VBG pCO2 (40-60) VBG HCO3 (21-28) mmol/l VBG Total CO2 (22-28) mmol.L VBG O2 Sat (Calc) (40-65) % VBG Base Excess (0.0-2.0) mmol/L VBG Potassium (3.6-5.2) mmol/L Hgb O2 Saturation 93.3 L (95.0-98.0) % Sodium (132-148) mmol/L Chloride (98-107) mmol/L Glucose (75-110) mg/dl Lactate (0.7-2.1) mmol/L FiO2 50.0 % Potassium (3.6-5.0) mmol/L Carbon Dioxide (21-33) mmol/L Anion Gap (10-20) BUN (7-21) mg/dL Creatinine (0.8-1.5) mg/dl Est GFR ( Amer) Est GFR (Non-Af Amer) POC Glucose (mg/dL) 138 H (65-110) mg/dL Random Glucose (70-110) mg/dL Calcium (8.4-10.5) mg/dL Phosphorus (2.5-4.5) mg/dL Magnesium (1.7-2.2) mg/dL Total Bilirubin (0.2-1.3) mg/dL AST (17-59) U/L ALT (7-56) U/L Alkaline Phosphatase (38-126) U/L Ammonia (9-33) umol/L Total Protein (5.8-8.3) g/dL Albumin (3.0-4.8) g/dL Globulin gm/dL Albumin/Globulin Ratio (1.1-1.8) Procalcitonin (0.19-0.49) NG/ML Free T4 (0.78-2.19) ng/dL TSH 3rd Generation (0.46-4.68) mIU/mL Venous Blood Potassium (3.6-5.2) mmol/L 03/24/18 03/24/18 03/23/18 Range/Units 03:42 02:00 22:05 WBC (4.5-11.0) 10^3/ul RBC (3.5-6.1) 10^6/uL Hgb (14.0-18.0) g/dL Hct (42.0-52.0) % MCV (80.0-105.0) fl MCH (25.0-35.0) pg MCHC (31.0-37.0) g/dl RDW (11.5-14.5) % Plt Count (120.0-450.0) 10^3/uL MPV (7.0-11.0) fl Gran % (50.0-68.0) % Lymph % (Auto) (22.0-35.0) % [place] % (Auto) (1.0-6.0) % Eos % (Auto) (1.5-5.0) % Baso % (Auto) (0.0-3.0) % Gran # (1.4-6.5) Lymph # (Auto) (1.2-3.4) [place] # (Auto) (0.1-0.6) Eos # (Auto) (0.0-0.7) Baso # (Auto) (0.0-2.0) K/mm3 PT (9.4-12.5) SECONDS INR (0.93-1.08) APTT (25.1-36.5) Seconds pCO2 (35-45) mm/Hg pO2 (30-55) mm/Hg HCO3 (21-28) mmol/L ABG pH (7.35-7.45) ABG Total CO2 (22-28) mmol.L ABG O2 Saturation (95-98) % ABG O2 Content (15-23) ML/dl ABG Base Excess (-2.0-3.0) mmol/L ABG Hemoglobin (11.7-17.4) g/dL ABG Carboxyhemoglobin (0.5-1.5) % POC ABG HHb (Measured) (0-5) % ABG Methemoglobin (0.0-3.0) % ABG O2 Capacity (16-24) mL/dl VBG pH (7.32-7.43) VBG pCO2 (40-60) VBG HCO3 (21-28) mmol/l VBG Total CO2 (22-28) mmol.L VBG O2 Sat (Calc) (40-65) % VBG Base Excess (0.0-2.0) mmol/L VBG Potassium (3.6-5.2) mmol/L Hgb O2 Saturation (95.0-98.0) % Sodium (132-148) mmol/L Chloride (98-107) mmol/L Glucose (75-110) mg/dl Lactate (0.7-2.1) mmol/L FiO2 % Potassium (3.6-5.0) mmol/L Carbon Dioxide (21-33) mmol/L Anion Gap (10-20) BUN (7-21) mg/dL Creatinine (0.8-1.5) mg/dl Est GFR ( Amer) Est GFR (Non-Af Amer) POC Glucose (mg/dL) 95 106 144 H (65-110) mg/dL Random Glucose (70-110) mg/dL Calcium (8.4-10.5) mg/dL Phosphorus (2.5-4.5) mg/dL Magnesium (1.7-2.2) mg/dL Total Bilirubin (0.2-1.3) mg/dL AST (17-59) U/L ALT (7-56) U/L Alkaline Phosphatase (38-126) U/L Ammonia (9-33) umol/L Total Protein (5.8-8.3) g/dL Albumin (3.0-4.8) g/dL Globulin gm/dL Albumin/Globulin Ratio (1.1-1.8) Procalcitonin (0.19-0.49) NG/ML Free T4 (0.78-2.19) ng/dL TSH 3rd Generation (0.46-4.68) mIU/mL Venous Blood Potassium (3.6-5.2) mmol/L 03/23/18 03/23/18 03/23/18 Range/Units 20:08 18:07 15:58 WBC (4.5-11.0) 10^3/ul RBC (3.5-6.1) 10^6/uL Hgb (14.0-18.0) g/dL Hct (42.0-52.0) % MCV (80.0-105.0) fl MCH (25.0-35.0) pg MCHC (31.0-37.0) g/dl RDW (11.5-14.5) % Plt Count (120.0-450.0) 10^3/uL MPV (7.0-11.0) fl Gran % (50.0-68.0) % Lymph % (Auto) (22.0-35.0) % [place] % (Auto) (1.0-6.0) % Eos % (Auto) (1.5-5.0) % Baso % (Auto) (0.0-3.0) % Gran # (1.4-6.5) Lymph # (Auto) (1.2-3.4) [place] # (Auto) (0.1-0.6) Eos # (Auto) (0.0-0.7) Baso # (Auto) (0.0-2.0) K/mm3 PT (9.4-12.5) SECONDS INR (0.93-1.08) APTT (25.1-36.5) Seconds pCO2 (35-45) mm/Hg pO2 (30-55) mm/Hg HCO3 (21-28) mmol/L ABG pH (7.35-7.45) ABG Total CO2 (22-28) mmol.L ABG O2 Saturation (95-98) % ABG O2 Content (15-23) ML/dl ABG Base Excess (-2.0-3.0) mmol/L ABG Hemoglobin (11.7-17.4) g/dL ABG Carboxyhemoglobin (0.5-1.5) % POC ABG HHb (Measured) (0-5) % ABG Methemoglobin (0.0-3.0) % ABG O2 Capacity (16-24) mL/dl VBG pH (7.32-7.43) VBG pCO2 (40-60) VBG HCO3 (21-28) mmol/l VBG Total CO2 (22-28) mmol.L VBG O2 Sat (Calc) (40-65) % VBG Base Excess (0.0-2.0) mmol/L VBG Potassium (3.6-5.2) mmol/L Hgb O2 Saturation (95.0-98.0) % Sodium (132-148) mmol/L Chloride (98-107) mmol/L Glucose (75-110) mg/dl Lactate (0.7-2.1) mmol/L FiO2 % Potassium (3.6-5.0) mmol/L Carbon Dioxide (21-33) mmol/L Anion Gap (10-20) BUN (7-21) mg/dL Creatinine (0.8-1.5) mg/dl Est GFR ( Amer) Est GFR (Non-Af Amer) POC Glucose (mg/dL) 145 H 137 H 138 H (65-110) mg/dL Random Glucose (70-110) mg/dL Calcium (8.4-10.5) mg/dL Phosphorus (2.5-4.5) mg/dL Magnesium (1.7-2.2) mg/dL Total Bilirubin (0.2-1.3) mg/dL AST (17-59) U/L ALT (7-56) U/L Alkaline Phosphatase (38-126) U/L Ammonia (9-33) umol/L Total Protein (5.8-8.3) g/dL Albumin (3.0-4.8) g/dL Globulin gm/dL Albumin/Globulin Ratio (1.1-1.8) Procalcitonin (0.19-0.49) NG/ML Free T4 (0.78-2.19) ng/dL TSH 3rd Generation (0.46-4.68) mIU/mL Venous Blood Potassium (3.6-5.2) mmol/L 03/23/18 03/23/18 03/23/18 Range/Units 15:00 14:02 13:45 WBC (4.5-11.0) 10^3/ul RBC (3.5-6.1) 10^6/uL Hgb (14.0-18.0) g/dL Hct (42.0-52.0) % MCV (80.0-105.0) fl MCH (25.0-35.0) pg MCHC (31.0-37.0) g/dl RDW (11.5-14.5) % Plt Count (120.0-450.0) 10^3/uL MPV (7.0-11.0) fl Gran % (50.0-68.0) % Lymph % (Auto) (22.0-35.0) % [place] % (Auto) (1.0-6.0) % Eos % (Auto) (1.5-5.0) % Baso % (Auto) (0.0-3.0) % Gran # (1.4-6.5) Lymph # (Auto) (1.2-3.4) [place] # (Auto) (0.1-0.6) Eos # (Auto) (0.0-0.7) Baso # (Auto) (0.0-2.0) K/mm3 PT (9.4-12.5) SECONDS INR (0.93-1.08) APTT (25.1-36.5) Seconds pCO2 (35-45) mm/Hg pO2 (30-55) mm/Hg HCO3 (21-28) mmol/L ABG pH (7.35-7.45) ABG Total CO2 (22-28) mmol.L ABG O2 Saturation (95-98) % ABG O2 Content (15-23) ML/dl ABG Base Excess (-2.0-3.0) mmol/L ABG Hemoglobin (11.7-17.4) g/dL ABG Carboxyhemoglobin (0.5-1.5) % POC ABG HHb (Measured) (0-5) % ABG Methemoglobin (0.0-3.0) % ABG O2 Capacity (16-24) mL/dl VBG pH (7.32-7.43) VBG pCO2 (40-60) VBG HCO3 (21-28) mmol/l VBG Total CO2 (22-28) mmol.L VBG O2 Sat (Calc) (40-65) % VBG Base Excess (0.0-2.0) mmol/L VBG Potassium (3.6-5.2) mmol/L Hgb O2 Saturation (95.0-98.0) % Sodium (132-148) mmol/L Chloride (98-107) mmol/L Glucose (75-110) mg/dl Lactate (0.7-2.1) mmol/L FiO2 % Potassium (3.6-5.0) mmol/L Carbon Dioxide (21-33) mmol/L Anion Gap (10-20) BUN (7-21) mg/dL Creatinine (0.8-1.5) mg/dl Est GFR ( Amer) Est GFR (Non-Af Amer) POC Glucose (mg/dL) 168 H (65-110) mg/dL Random Glucose (70-110) mg/dL Calcium (8.4-10.5) mg/dL Phosphorus (2.5-4.5) mg/dL Magnesium (1.7-2.2) mg/dL Total Bilirubin (0.2-1.3) mg/dL AST (17-59) U/L ALT (7-56) U/L Alkaline Phosphatase (38-126) U/L Ammonia (9-33) umol/L Total Protein (5.8-8.3) g/dL Albumin (3.0-4.8) g/dL Globulin gm/dL Albumin/Globulin Ratio (1.1-1.8) Procalcitonin 1.82 H (0.19-0.49) NG/ML Free T4 1.13 (0.78-2.19) ng/dL TSH 3rd Generation 0.29 L (0.46-4.68) mIU/mL Venous Blood Potassium (3.6-5.2) mmol/L 03/23/18 03/23/18 Range/Units 13:45 11:52 WBC (4.5-11.0) 10^3/ul RBC (3.5-6.1) 10^6/uL Hgb (14.0-18.0) g/dL Hct (42.0-52.0) % MCV (80.0-105.0) fl MCH (25.0-35.0) pg MCHC (31.0-37.0) g/dl RDW (11.5-14.5) % Plt Count (120.0-450.0) 10^3/uL MPV (7.0-11.0) fl Gran % (50.0-68.0) % Lymph % (Auto) (22.0-35.0) % [place] % (Auto) (1.0-6.0) % Eos % (Auto) (1.5-5.0) % Baso % (Auto) (0.0-3.0) % Gran # (1.4-6.5) Lymph # (Auto) (1.2-3.4) [place] # (Auto) (0.1-0.6) Eos # (Auto) (0.0-0.7) Baso # (Auto) (0.0-2.0) K/mm3 PT (9.4-12.5) SECONDS INR (0.93-1.08) APTT (25.1-36.5) Seconds pCO2 (35-45) mm/Hg pO2 74 H (30-55) mm/Hg HCO3 (21-28) mmol/L ABG pH (7.35-7.45) ABG Total CO2 (22-28) mmol.L ABG O2 Saturation (95-98) % ABG O2 Content (15-23) ML/dl ABG Base Excess (-2.0-3.0) mmol/L ABG Hemoglobin (11.7-17.4) g/dL ABG Carboxyhemoglobin (0.5-1.5) % POC ABG HHb (Measured) (0-5) % ABG Methemoglobin (0.0-3.0) % ABG O2 Capacity (16-24) mL/dl VBG pH 7.42 (7.32-7.43) VBG pCO2 34.0 L (40-60) VBG HCO3 22.1 (21-28) mmol/l VBG Total CO2 23.1 (22-28) mmol.L VBG O2 Sat (Calc) 99.1 H (40-65) % VBG Base Excess -1.7 L (0.0-2.0) mmol/L VBG Potassium 3.0 L (3.6-5.2) mmol/L Hgb O2 Saturation (95.0-98.0) % Sodium 137.0 (132-148) mmol/L Chloride 110.0 H (98-107) mmol/L Glucose 420 H* D (75-110) mg/dl Lactate 1.6 (0.7-2.1) mmol/L FiO2 21.0 % Potassium (3.6-5.0) mmol/L Carbon Dioxide (21-33) mmol/L Anion Gap (10-20) BUN (7-21) mg/dL Creatinine (0.8-1.5) mg/dl Est GFR ( Amer) Est GFR (Non-Af Amer) POC Glucose (mg/dL) 158 H (65-110) mg/dL Random Glucose (70-110) mg/dL Calcium (8.4-10.5) mg/dL Phosphorus (2.5-4.5) mg/dL Magnesium (1.7-2.2) mg/dL Total Bilirubin (0.2-1.3) mg/dL AST (17-59) U/L ALT (7-56) U/L Alkaline Phosphatase (38-126) U/L Ammonia (9-33) umol/L Total Protein (5.8-8.3) g/dL Albumin (3.0-4.8) g/dL Globulin gm/dL Albumin/Globulin Ratio (1.1-1.8) Procalcitonin (0.19-0.49) NG/ML Free T4 (0.78-2.19) ng/dL TSH 3rd Generation (0.46-4.68) mIU/mL Venous Blood Potassium 3.0 L (3.6-5.2) mmol/L Laboratory Results - last 24 hr 03/23/18 03/23/18 03/23/18 11:52 13:45 13:45 WBC RBC Hgb Hct MCV MCH MCHC RDW Plt Count MPV Gran % Lymph % (Auto) [place] % (Auto) Eos % (Auto) Baso % (Auto) Gran # Lymph # (Auto) [place] # (Auto) Eos # (Auto) Baso # (Auto) PT INR APTT pCO2 pO2 74 H HCO3 ABG pH ABG Total CO2 ABG O2 Saturation ABG O2 Content ABG Base Excess ABG Hemoglobin ABG Carboxyhemoglobin POC ABG HHb (Measured) ABG Methemoglobin ABG O2 Capacity VBG pH 7.42 VBG pCO2 34.0 L VBG HCO3 22.1 VBG Total CO2 23.1 VBG O2 Sat (Calc) 99.1 H VBG Base Excess -1.7 L VBG Potassium 3.0 L Hgb O2 Saturation Sodium 137.0 Chloride 110.0 H Glucose 420 H* D Lactate 1.6 FiO2 21.0 Potassium Carbon Dioxide Anion Gap BUN Creatinine Est GFR ( Amer) Est GFR (Non-Af Amer) POC Glucose (mg/dL) 158 H Random Glucose Calcium Phosphorus Magnesium Total Bilirubin AST ALT Alkaline Phosphatase Ammonia Total Protein Albumin Globulin Albumin/Globulin Ratio Procalcitonin Free T4 1.13 TSH 3rd Generation 0.29 L Venous Blood Potassium 3.0 L 03/23/18 03/23/18 03/23/18 14:02 15:00 15:58 WBC RBC Hgb Hct MCV MCH MCHC RDW Plt Count MPV Gran % Lymph % (Auto) [place] % (Auto) Eos % (Auto) Baso % (Auto) Gran # Lymph # (Auto) [place] # (Auto) Eos # (Auto) Baso # (Auto) PT INR APTT pCO2 pO2 HCO3 ABG pH ABG Total CO2 ABG O2 Saturation ABG O2 Content ABG Base Excess ABG Hemoglobin ABG Carboxyhemoglobin POC ABG HHb (Measured) ABG Methemoglobin ABG O2 Capacity VBG pH VBG pCO2 VBG HCO3 VBG Total CO2 VBG O2 Sat (Calc) VBG Base Excess VBG Potassium Hgb O2 Saturation Sodium Chloride Glucose Lactate FiO2 Potassium Carbon Dioxide Anion Gap BUN Creatinine Est GFR ( Amer) Est GFR (Non-Af Amer) POC Glucose (mg/dL) 168 H 138 H Random Glucose Calcium Phosphorus Magnesium Total Bilirubin AST ALT Alkaline Phosphatase Ammonia Total Protein Albumin Globulin Albumin/Globulin Ratio Procalcitonin 1.82 H Free T4 TSH 3rd Generation Venous Blood Potassium 03/23/18 03/23/18 03/23/18 18:07 20:08 22:05 WBC RBC Hgb Hct MCV MCH MCHC RDW Plt Count MPV Gran % Lymph % (Auto) [place] % (Auto) Eos % (Auto) Baso % (Auto) Gran # Lymph # (Auto) [place] # (Auto) Eos # (Auto) Baso # (Auto) PT INR APTT pCO2 pO2 HCO3 ABG pH ABG Total CO2 ABG O2 Saturation ABG O2 Content ABG Base Excess ABG Hemoglobin ABG Carboxyhemoglobin POC ABG HHb (Measured) ABG Methemoglobin ABG O2 Capacity VBG pH VBG pCO2 VBG HCO3 VBG Total CO2 VBG O2 Sat (Calc) VBG Base Excess VBG Potassium Hgb O2 Saturation Sodium Chloride Glucose Lactate FiO2 Potassium Carbon Dioxide Anion Gap BUN Creatinine Est GFR ( Amer) Est GFR (Non-Af Amer) POC Glucose (mg/dL) 137 H 145 H 144 H Random Glucose Calcium Phosphorus Magnesium Total Bilirubin AST ALT Alkaline Phosphatase Ammonia Total Protein Albumin Globulin Albumin/Globulin Ratio Procalcitonin Free T4 TSH 3rd Generation Venous Blood Potassium 03/24/18 03/24/18 03/24/18 02:00 03:42 06:17 WBC RBC Hgb Hct MCV MCH MCHC RDW Plt Count MPV Gran % Lymph % (Auto) [place] % (Auto) Eos % (Auto) Baso % (Auto) Gran # Lymph # (Auto) [place] # (Auto) Eos # (Auto) Baso # (Auto) PT INR APTT pCO2 pO2 HCO3 ABG pH ABG Total CO2 ABG O2 Saturation ABG O2 Content ABG Base Excess ABG Hemoglobin ABG Carboxyhemoglobin POC ABG HHb (Measured) ABG Methemoglobin ABG O2 Capacity VBG pH VBG pCO2 VBG HCO3 VBG Total CO2 VBG O2 Sat (Calc) VBG Base Excess VBG Potassium Hgb O2 Saturation Sodium Chloride Glucose Lactate FiO2 Potassium Carbon Dioxide Anion Gap BUN Creatinine Est GFR ( Amer) Est GFR (Non-Af Amer) POC Glucose (mg/dL) 106 95 138 H Random Glucose Calcium Phosphorus Magnesium Total Bilirubin AST ALT Alkaline Phosphatase Ammonia Total Protein Albumin Globulin Albumin/Globulin Ratio Procalcitonin Free T4 TSH 3rd Generation Venous Blood Potassium 03/24/18 03/24/18 03/24/18 08:00 08:20 08:20 WBC 21.4 H D RBC 4.00 Hgb 11.8 L Hct 36.1 L MCV 90.3 MCH 29.5 MCHC 32.7 RDW 19.3 H Plt Count 51 L MPV 10.3 Gran % 94.2 H Lymph % (Auto) 2.4 L [place] % (Auto) 3.3 Eos % (Auto) 0.0 L Baso % (Auto) 0.1 Gran # 20.09 H Lymph # (Auto) 0.5 L [place] # (Auto) 0.7 H Eos # (Auto) 0.0 Baso # (Auto) 0.03 PT INR APTT pCO2 37 pO2 75.0 L HCO3 17.8 L ABG pH 7.29 L ABG Total CO2 18.9 L ABG O2 Saturation 96.9 ABG O2 Content 14.5 L ABG Base Excess -8.1 L ABG Hemoglobin 11.0 L ABG Carboxyhemoglobin 2.7 H POC ABG HHb (Measured) 3.0 ABG Methemoglobin 1.0 ABG O2 Capacity 15.0 L VBG pH VBG pCO2 VBG HCO3 VBG Total CO2 VBG O2 Sat (Calc) VBG Base Excess VBG Potassium Hgb O2 Saturation 93.3 L Sodium 149 H Chloride 117 H Glucose Lactate FiO2 50.0 Potassium 4.3 Carbon Dioxide 20 L Anion Gap 17 BUN 30 H Creatinine 1.9 H Est GFR ( Amer) 44 Est GFR (Non-Af Amer) 36 POC Glucose (mg/dL) Random Glucose 115 H Calcium 7.3 L Phosphorus 5.5 H Magnesium 1.8 Total Bilirubin 18.3 H* AST 90 H ALT 50 Alkaline Phosphatase 174 H Ammonia Total Protein 5.9 Albumin 2.0 L Globulin 3.8 Albumin/Globulin Ratio 0.5 L Procalcitonin Free T4 TSH 3rd Generation Venous Blood Potassium 03/24/18 03/24/18 08:20 08:20 WBC RBC Hgb Hct MCV MCH MCHC RDW Plt Count MPV Gran % Lymph % (Auto) [place] % (Auto) Eos % (Auto) Baso % (Auto) Gran # Lymph # (Auto) [place] # (Auto) Eos # (Auto) Baso # (Auto) PT 27.0 H INR 2.31 H APTT 46.5 H pCO2 pO2 HCO3 ABG pH ABG Total CO2 ABG O2 Saturation ABG O2 Content ABG Base Excess ABG Hemoglobin ABG Carboxyhemoglobin POC ABG HHb (Measured) ABG Methemoglobin ABG O2 Capacity VBG pH VBG pCO2 VBG HCO3 VBG Total CO2 VBG O2 Sat (Calc) VBG Base Excess VBG Potassium Hgb O2 Saturation Sodium Chloride Glucose Lactate FiO2 Potassium Carbon Dioxide Anion Gap BUN Creatinine Est GFR ( Amer) Est GFR (Non-Af Amer) POC Glucose (mg/dL) Random Glucose Calcium Phosphorus Magnesium Total Bilirubin AST ALT Alkaline Phosphatase Ammonia 305 H* Total Protein Albumin Globulin Albumin/Globulin Ratio Procalcitonin Free T4 TSH 3rd Generation Venous Blood Potassium Fingerstick Blood Sugar Results: 110 Critical Care Progress Note - Nutrition Nutrition: Nutrition Category Date Time Status NPO Diet [DIET] Diets 03/15/18 Breakfast Ordered Assessment/Plan - Assessment and Plan (Free Text) Assessment: 62 year old male with a PMH of end stage liver disease, Hep C, Cirrhosis, DM, non compliance, admitted with devastating L IPH now with ZAC. Plan: Neurologic Neurosurgery and neurology recs appreciated, no surgical intevention Continues to have minimal neurological function Repeat CT reviewed showed worsening of hemorrhagic CVA F/u EEG report Maintaining hypernatremic state Cont cohen-precautions Cont keppra, solucortef Palliative care following Neuro following Cardiovascular Cont Levophed and Phenylephrine Cont D5 with MV Maintain MAP>65 HD stable Pulmnologic Intubated on PRVC Off sedation Maintain sat > 92% Gastrointestinal NPO Known hepatic encephalopathy, worsening ammonia, continue lactulose and rifaximin Plan for PEG/G tube placement, GI and surgery following MELD 24 Renal Continues making appropriate urine No acute issues Infectious disease Cont Merrem and Vanco PRN ofirmev Monitoring Endocrinologic Continue levothyroxine 75mcg Hx of DM, cont ISS and accuchecks Cont insulin gtt GI/DVT ppx: Protonix, 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) Dispo: Family no longer wants trach/PEG, will reconsider options pending repeat CT and EEG results. Patient was seen and examined and case was discussed at length with attending physician <Eze Velázquez - Last Filed: 03/24/18 11:20> CCU Objective - Vital Signs / Intake & Output Vital Signs (Last 4 hours): Vital Signs Temp Pulse BP Pulse Ox 03/24/18 10:30 96.6 F L 97 H 118/63 95 03/24/18 10:15 96.8 F L 97 H 103/53 L 95 03/24/18 10:01 97.3 F L 102 H 92/54 L 96 03/24/18 10:00 97.5 F L 102 H 97 03/24/18 09:46 97.5 F L 100 H 106/55 L 95 03/24/18 09:30 97.5 F L 101 H 100/53 L 94 L 05/14/18 09:15 97.5 F L 102 H 111/55 L 95 03/24/18 09:00 97.5 F L 102 H 109/70 95 03/24/18 08:59 97.5 F L 102 H 95 03/24/18 08:45 97.9 F 102 H 121/65 96 03/24/18 08:31 97.7 F 101 H 133/77 96 03/24/18 08:15 97.7 F 99 H 75/41 L 94 L 03/24/18 08:00 97.7 F 103 H 129/67 95 03/24/18 07:45 97.7 F 104 H 114/59 L 94 L 03/24/18 07:30 97.7 F 103 H 125/65 94 L Intake and Output (Last 8hrs): Intake & Output 03/23/18 03/24/18 03/24/18 22:59 06:59 14:59 Intake Total 2477.6 1500 250 Output Total 100 65 Balance 2377.6 1435 250 Intake: IV 2477.6 1500 250 Left Forearm 1050 keppra 100 multi vit 750 1250 Output: Urine 100 65 Urethral (Serna) 100 65 Other: # Bowel Movements 2 - Medications Active Medications: Active Medications Generic Name Dose Route Start Last Admin Trade Name Freq PRN Reason Stop Dose Admin Bacitracin 1 ea 03/23/18 12:16 03/23/18 14:10 Bacitracin TOP 1 ea BID PRN Administration ARM BLISTERS Hydrocortisone Sodium Succinate 80 mg 03/24/18 00:30 03/24/18 06:21 Solu-Cortef IVP 80 mg Q8 KAVIN Administration Sodium Chloride 500 mls @ 30 mls/hr 03/15/18 09:45 03/15/18 10:50 Hypertonic Saline 3% IV 30 mls/hr .[id number] KAVIN Administration Levetiracetam 500 mg in 100 mls @ 400 mls/hr 03/15/18 12:00 03/24/18 09:51 Keppra 500mg Ivpb IV 400 mls/hr Q12 KAVIN Administration Multivitamins/Vitamin C 10 ml/ 1,010 mls @ 75 mls/hr 03/20/18 17:15 03/24/18 06:22 Dextrose IV 75 mls/hr .[id number] KAVIN Administration NOREPINEPHRINE BIT/0.9 % NACL 4 mg in 250 mls @ 15 mls/hr 03/23/18 02:22 09:45 Levophed 4 Mg/ 250 Ml Ns Premixed IV 25 mcg/min .[id number] PRN 93.75 mls/hr TITRATE PER MD ORDER Administration Protocol 4 MCG/MIN Vancomycin HCl 1 gm in 250 mls @ 167 mls/hr 03/23/18 10:45 03/24/18 09:52 Vancomycin 1gm IVPB 167 mls/hr Q12H KAVIN Administration Protocol Phenylephrine HCl 40 mg/ 254 mls @ 38.1 mls/hr 03/24/18 00:25 03/24/18 01:01 Sodium Chloride IV 100 mcg/min .[id number] PRN 38.1 mls/hr TITRATE PER MD ORDER Administration Protocol 100 MCG/MIN Meropenem 50 mls @ 100 mls/hr 03/24/18 10:09 Merrem Iv 1 Gm Premix IVPB Q12 [facility] Protocol Insulin Detemir 20 unit 03/24/18 08:00 03/24/18 09:50 Levemir SC 20 unit Q12H KAVIN Administration Insulin Human Regular 0 units 03/24/18 11:30 Humulin R Low SC ACHS [facility] Protocol Labetalol HCl 10 mg 03/15/18 03:08 03/23/18 00:52 Trandate IV 2 ml Q4 PRN Administration Blood Pressure 220/110 & above Lactulose 30 gm 03/24/18 09:30 03/24/18 09:50 Enulose PO 30 gm Q4H KAVIN Administration Levothyroxine Sodium 75 mcg 03/17/18 09:51 03/24/18 06:23 Synthroid PO 75 mcg 0600 KAVIN Administration Ondansetron HCl 4 mg 03/14/18 23:32 03/15/18 00:14 Zofran Inj IVP 4 mg Q6H PRN Administration Nausea/Vomiting Pantoprazole Sodium 40 mg 03/18/18 10:00 03/24/18 09:50 Protonix Inj IVP 40 mg DAILY KAVIN Administration Rifaximin 550 mg 03/21/18 10:00 03/24/18 09:51 Xifaxan PO 550 mg BID KAVIN Administration Protocol Sucralfate 1 gm 03/20/18 16:00 03/24/18 06:21 Carafate Oral Susp PO 1 gm 0600,1600 [facility] Administration - Patient Studies Lab Studies: Lab Studies 03/24/18 03/24/18 03/24/18 Range/Units 08:20 08:20 08:20 WBC (4.5-11.0) 10^3/ul RBC (3.5-6.1) 10^6/uL Hgb (14.0-18.0) g/dL Hct (42.0-52.0) % MCV (80.0-105.0) fl MCH (25.0-35.0) pg MCHC (31.0-37.0) g/dl RDW (11.5-14.5) % Plt Count (120.0-450.0) 10^3/uL MPV (7.0-11.0) fl Gran % (50.0-68.0) % Lymph % (Auto) (22.0-35.0) % [place] % (Auto) (1.0-6.0) % Eos % (Auto) (1.5-5.0) % Baso % (Auto) (0.0-3.0) % Gran # (1.4-6.5) Lymph # (Auto) (1.2-3.4) [place] # (Auto) (0.1-0.6) Eos # (Auto) (0.0-0.7) Baso # (Auto) (0.0-2.0) K/mm3 PT 27.0 H (9.4-12.5) SECONDS INR 2.31 H (0.93-1.08) APTT 46.5 H (25.1-36.5) Seconds pCO2 (35-45) mm/Hg pO2 (30-55) mm/Hg HCO3 (21-28) mmol/L ABG pH (7.35-7.45) ABG Total CO2 (22-28) mmol.L ABG O2 Saturation (95-98) % ABG O2 Content (15-23) ML/dl ABG Base Excess (-2.0-3.0) mmol/L ABG Hemoglobin (11.7-17.4) g/dL ABG Carboxyhemoglobin (0.5-1.5) % POC ABG HHb (Measured) (0-5) % ABG Methemoglobin (0.0-3.0) % ABG O2 Capacity (16-24) mL/dl VBG pH (7.32-7.43) VBG pCO2 (40-60) VBG HCO3 (21-28) mmol/l VBG Total CO2 (22-28) mmol.L VBG O2 Sat (Calc) (40-65) % VBG Base Excess (0.0-2.0) mmol/L VBG Potassium (3.6-5.2) mmol/L Hgb O2 Saturation (95.0-98.0) % Sodium 149 H (132-148) mmol/L Chloride 117 H (98-107) mmol/L Glucose (75-110) mg/dl Lactate (0.7-2.1) mmol/L FiO2 % Potassium 4.3 (3.6-5.0) mmol/L Carbon Dioxide 20 L (21-33) mmol/L Anion Gap 17 (10-20) BUN 30 H (7-21) mg/dL Creatinine 1.9 H (0.8-1.5) mg/dl Est GFR ( Amer) 44 Est GFR (Non-Af Amer) 36 POC Glucose (mg/dL) (65-110) mg/dL Random Glucose 115 H (70-110) mg/dL Calcium 7.3 L (8.4-10.5) mg/dL Phosphorus 5.5 H (2.5-4.5) mg/dL Magnesium 1.8 (1.7-2.2) mg/dL Total Bilirubin 18.3 H* (0.2-1.3) mg/dL AST 90 H (17-59) U/L ALT 50 (7-56) U/L Alkaline Phosphatase 174 H (38-126) U/L Ammonia 305 H* (9-33) umol/L Total Protein 5.9 (5.8-8.3) g/dL Albumin 2.0 L (3.0-4.8) g/dL Globulin 3.8 gm/dL Albumin/Globulin Ratio 0.5 L (1.1-1.8) Procalcitonin (0.19-0.49) NG/ML Free T4 (0.78-2.19) ng/dL TSH 3rd Generation (0.46-4.68) mIU/mL Venous Blood Potassium (3.6-5.2) mmol/L 03/24/18 03/24/18 03/24/18 Range/Units 08:20 08:00 06:17 WBC 21.4 H D (4.5-11.0) 10^3/ul RBC 4.00 (3.5-6.1) 10^6/uL Hgb 11.8 L (14.0-18.0) g/dL Hct 36.1 L (42.0-52.0) % MCV 90.3 (80.0-105.0) fl MCH 29.5 (25.0-35.0) pg MCHC 32.7 (31.0-37.0) g/dl RDW 19.3 H (11.5-14.5) % Plt Count 51 L (120.0-450.0) 10^3/uL MPV 10.3 (7.0-11.0) fl Gran % 94.2 H (50.0-68.0) % Lymph % (Auto) 2.4 L (22.0-35.0) % [place] % (Auto) 3.3 (1.0-6.0) % Eos % (Auto) 0.0 L (1.5-5.0) % Baso % (Auto) 0.1 (0.0-3.0) % Gran # 20.09 H (1.4-6.5) Lymph # (Auto) 0.5 L (1.2-3.4) [place] # (Auto) 0.7 H (0.1-0.6) Eos # (Auto) 0.0 (0.0-0.7) Baso # (Auto) 0.03 (0.0-2.0) K/mm3 PT (9.4-12.5) SECONDS INR (0.93-1.08) APTT (25.1-36.5) Seconds pCO2 37 (35-45) mm/Hg pO2 75.0 L (30-55) mm/Hg HCO3 17.8 L (21-28) mmol/L ABG pH 7.29 L (7.35-7.45) ABG Total CO2 18.9 L (22-28) mmol.L ABG O2 Saturation 96.9 (95-98) % ABG O2 Content 14.5 L (15-23) ML/dl ABG Base Excess -8.1 L (-2.0-3.0) mmol/L ABG Hemoglobin 11.0 L (11.7-17.4) g/dL ABG Carboxyhemoglobin 2.7 H (0.5-1.5) % POC ABG HHb (Measured) 3.0 (0-5) % ABG Methemoglobin 1.0 (0.0-3.0) % ABG O2 Capacity 15.0 L (16-24) mL/dl VBG pH (7.32-7.43) VBG pCO2 (40-60) VBG HCO3 (21-28) mmol/l VBG Total CO2 (22-28) mmol.L VBG O2 Sat (Calc) (40-65) % VBG Base Excess (0.0-2.0) mmol/L VBG Potassium (3.6-5.2) mmol/L Hgb O2 Saturation 93.3 L (95.0-98.0) % Sodium (132-148) mmol/L Chloride (98-107) mmol/L Glucose (75-110) mg/dl Lactate (0.7-2.1) mmol/L FiO2 50.0 % Potassium (3.6-5.0) mmol/L Carbon Dioxide (21-33) mmol/L Anion Gap (10-20) BUN (7-21) mg/dL Creatinine (0.8-1.5) mg/dl Est GFR ( Amer) Est GFR (Non-Af Amer) POC Glucose (mg/dL) 138 H (65-110) mg/dL Random Glucose (70-110) mg/dL Calcium (8.4-10.5) mg/dL Phosphorus (2.5-4.5) mg/dL Magnesium (1.7-2.2) mg/dL Total Bilirubin (0.2-1.3) mg/dL AST (17-59) U/L ALT (7-56) U/L Alkaline Phosphatase (38-126) U/L Ammonia (9-33) umol/L Total Protein (5.8-8.3) g/dL Albumin (3.0-4.8) g/dL Globulin gm/dL Albumin/Globulin Ratio (1.1-1.8) Procalcitonin (0.19-0.49) NG/ML Free T4 (0.78-2.19) ng/dL TSH 3rd Generation (0.46-4.68) mIU/mL Venous Blood Potassium (3.6-5.2) mmol/L 03/24/18 03/24/18 03/23/18 Range/Units 03:42 02:00 22:05 WBC (4.5-11.0) 10^3/ul RBC (3.5-6.1) 10^6/uL Hgb (14.0-18.0) g/dL Hct (42.0-52.0) % MCV (80.0-105.0) fl MCH (25.0-35.0) pg MCHC (31.0-37.0) g/dl RDW (11.5-14.5) % Plt Count (120.0-450.0) 10^3/uL MPV (7.0-11.0) fl Gran % (50.0-68.0) % Lymph % (Auto) (22.0-35.0) % [place] % (Auto) (1.0-6.0) % Eos % (Auto) (1.5-5.0) % Baso % (Auto) (0.0-3.0) % Gran # (1.4-6.5) Lymph # (Auto) (1.2-3.4) [place] # (Auto) (0.1-0.6) Eos # (Auto) (0.0-0.7) Baso # (Auto) (0.0-2.0) K/mm3 PT (9.4-12.5) SECONDS INR (0.93-1.08) APTT (25.1-36.5) Seconds pCO2 (35-45) mm/Hg pO2 (30-55) mm/Hg HCO3 (21-28) mmol/L ABG pH (7.35-7.45) ABG Total CO2 (22-28) mmol.L ABG O2 Saturation (95-98) % ABG O2 Content (15-23) ML/dl ABG Base Excess (-2.0-3.0) mmol/L ABG Hemoglobin (11.7-17.4) g/dL ABG Carboxyhemoglobin (0.5-1.5) % POC ABG HHb (Measured) (0-5) % ABG Methemoglobin (0.0-3.0) % ABG O2 Capacity (16-24) mL/dl VBG pH (7.32-7.43) VBG pCO2 (40-60) VBG HCO3 (21-28) mmol/l VBG Total CO2 (22-28) mmol.L VBG O2 Sat (Calc) (40-65) % VBG Base Excess (0.0-2.0) mmol/L VBG Potassium (3.6-5.2) mmol/L Hgb O2 Saturation (95.0-98.0) % Sodium (132-148) mmol/L Chloride (98-107) mmol/L Glucose (75-110) mg/dl Lactate (0.7-2.1) mmol/L FiO2 % Potassium (3.6-5.0) mmol/L Carbon Dioxide (21-33) mmol/L Anion Gap (10-20) BUN (7-21) mg/dL Creatinine (0.8-1.5) mg/dl Est GFR ( Amer) Est GFR (Non-Af Amer) POC Glucose (mg/dL) 95 106 144 H (65-110) mg/dL Random Glucose (70-110) mg/dL Calcium (8.4-10.5) mg/dL Phosphorus (2.5-4.5) mg/dL Magnesium (1.7-2.2) mg/dL Total Bilirubin (0.2-1.3) mg/dL AST (17-59) U/L ALT (7-56) U/L Alkaline Phosphatase (38-126) U/L Ammonia (9-33) umol/L Total Protein (5.8-8.3) g/dL Albumin (3.0-4.8) g/dL Globulin gm/dL Albumin/Globulin Ratio (1.1-1.8) Procalcitonin (0.19-0.49) NG/ML Free T4 (0.78-2.19) ng/dL TSH 3rd Generation (0.46-4.68) mIU/mL Venous Blood Potassium (3.6-5.2) mmol/L 03/23/18 03/23/18 03/23/18 Range/Units 20:08 18:07 15:58 WBC (4.5-11.0) 10^3/ul RBC (3.5-6.1) 10^6/uL Hgb (14.0-18.0) g/dL Hct (42.0-52.0) % MCV (80.0-105.0) fl MCH (25.0-35.0) pg MCHC (31.0-37.0) g/dl RDW (11.5-14.5) % Plt Count (120.0-450.0) 10^3/uL MPV (7.0-11.0) fl Gran % (50.0-68.0) % Lymph % (Auto) (22.0-35.0) % [place] % (Auto) (1.0-6.0) % Eos % (Auto) (1.5-5.0) % Baso % (Auto) (0.0-3.0) % Gran # (1.4-6.5) Lymph # (Auto) (1.2-3.4) [place] # (Auto) (0.1-0.6) Eos # (Auto) (0.0-0.7) Baso # (Auto) (0.0-2.0) K/mm3 PT (9.4-12.5) SECONDS INR (0.93-1.08) APTT (25.1-36.5) Seconds pCO2 (35-45) mm/Hg pO2 (30-55) mm/Hg HCO3 (21-28) mmol/L ABG pH (7.35-7.45) ABG Total CO2 (22-28) mmol.L ABG O2 Saturation (95-98) % ABG O2 Content (15-23) ML/dl ABG Base Excess (-2.0-3.0) mmol/L ABG Hemoglobin (11.7-17.4) g/dL ABG Carboxyhemoglobin (0.5-1.5) % POC ABG HHb (Measured) (0-5) % ABG Methemoglobin (0.0-3.0) % ABG O2 Capacity (16-24) mL/dl VBG pH (7.32-7.43) VBG pCO2 (40-60) VBG HCO3 (21-28) mmol/l VBG Total CO2 (22-28) mmol.L VBG O2 Sat (Calc) (40-65) % VBG Base Excess (0.0-2.0) mmol/L VBG Potassium (3.6-5.2) mmol/L Hgb O2 Saturation (95.0-98.0) % Sodium (132-148) mmol/L Chloride (98-107) mmol/L Glucose (75-110) mg/dl Lactate (0.7-2.1) mmol/L FiO2 % Potassium (3.6-5.0) mmol/L Carbon Dioxide (21-33) mmol/L Anion Gap (10-20) BUN (7-21) mg/dL Creatinine (0.8-1.5) mg/dl Est GFR ( Amer) Est GFR (Non-Af Amer) POC Glucose (mg/dL) 145 H 137 H 138 H (65-110) mg/dL Random Glucose (70-110) mg/dL Calcium (8.4-10.5) mg/dL Phosphorus (2.5-4.5) mg/dL Magnesium (1.7-2.2) mg/dL Total Bilirubin (0.2-1.3) mg/dL AST (17-59) U/L ALT (7-56) U/L Alkaline Phosphatase (38-126) U/L Ammonia (9-33) umol/L Total Protein (5.8-8.3) g/dL Albumin (3.0-4.8) g/dL Globulin gm/dL Albumin/Globulin Ratio (1.1-1.8) Procalcitonin (0.19-0.49) NG/ML Free T4 (0.78-2.19) ng/dL TSH 3rd Generation (0.46-4.68) mIU/mL Venous Blood Potassium (3.6-5.2) mmol/L 03/23/18 03/23/18 03/23/18 Range/Units 15:00 14:02 13:45 WBC (4.5-11.0) 10^3/ul RBC (3.5-6.1) 10^6/uL Hgb (14.0-18.0) g/dL Hct (42.0-52.0) % MCV (80.0-105.0) fl MCH (25.0-35.0) pg MCHC (31.0-37.0) g/dl RDW (11.5-14.5) % Plt Count (120.0-450.0) 10^3/uL MPV (7.0-11.0) fl Gran % (50.0-68.0) % Lymph % (Auto) (22.0-35.0) % [place] % (Auto) (1.0-6.0) % Eos % (Auto) (1.5-5.0) % Baso % (Auto) (0.0-3.0) % Gran # (1.4-6.5) Lymph # (Auto) (1.2-3.4) [place] # (Auto) (0.1-0.6) Eos # (Auto) (0.0-0.7) Baso # (Auto) (0.0-2.0) K/mm3 PT (9.4-12.5) SECONDS INR (0.93-1.08) APTT (25.1-36.5) Seconds pCO2 (35-45) mm/Hg pO2 (30-55) mm/Hg HCO3 (21-28) mmol/L ABG pH (7.35-7.45) ABG Total CO2 (22-28) mmol.L ABG O2 Saturation (95-98) % ABG O2 Content (15-23) ML/dl ABG Base Excess (-2.0-3.0) mmol/L ABG Hemoglobin (11.7-17.4) g/dL ABG Carboxyhemoglobin (0.5-1.5) % POC ABG HHb (Measured) (0-5) % ABG Methemoglobin (0.0-3.0) % ABG O2 Capacity (16-24) mL/dl VBG pH (7.32-7.43) VBG pCO2 (40-60) VBG HCO3 (21-28) mmol/l VBG Total CO2 (22-28) mmol.L VBG O2 Sat (Calc) (40-65) % VBG Base Excess (0.0-2.0) mmol/L VBG Potassium (3.6-5.2) mmol/L Hgb O2 Saturation (95.0-98.0) % Sodium (132-148) mmol/L Chloride (98-107) mmol/L Glucose (75-110) mg/dl Lactate (0.7-2.1) mmol/L FiO2 % Potassium (3.6-5.0) mmol/L Carbon Dioxide (21-33) mmol/L Anion Gap (10-20) BUN (7-21) mg/dL Creatinine (0.8-1.5) mg/dl Est GFR ( Amer) Est GFR (Non-Af Amer) POC Glucose (mg/dL) 168 H (65-110) mg/dL Random Glucose (70-110) mg/dL Calcium (8.4-10.5) mg/dL Phosphorus (2.5-4.5) mg/dL Magnesium (1.7-2.2) mg/dL Total Bilirubin (0.2-1.3) mg/dL AST (17-59) U/L ALT (7-56) U/L Alkaline Phosphatase (38-126) U/L Ammonia (9-33) umol/L Total Protein (5.8-8.3) g/dL Albumin (3.0-4.8) g/dL Globulin gm/dL Albumin/Globulin Ratio (1.1-1.8) Procalcitonin 1.82 H (0.19-0.49) NG/ML Free T4 1.13 (0.78-2.19) ng/dL TSH 3rd Generation 0.29 L (0.46-4.68) mIU/mL Venous Blood Potassium (3.6-5.2) mmol/L 03/23/18 03/23/18 Range/Units 13:45 11:52 WBC (4.5-11.0) 10^3/ul RBC (3.5-6.1) 10^6/uL Hgb (14.0-18.0) g/dL Hct (42.0-52.0) % MCV (80.0-105.0) fl MCH (25.0-35.0) pg MCHC (31.0-37.0) g/dl RDW (11.5-14.5) % Plt Count (120.0-450.0) 10^3/uL MPV (7.0-11.0) fl Gran % (50.0-68.0) % Lymph % (Auto) (22.0-35.0) % [place] % (Auto) (1.0-6.0) % Eos % (Auto) (1.5-5.0) % Baso % (Auto) (0.0-3.0) % Gran # (1.4-6.5) Lymph # (Auto) (1.2-3.4) [place] # (Auto) (0.1-0.6) Eos # (Auto) (0.0-0.7) Baso # (Auto) (0.0-2.0) K/mm3 PT (9.4-12.5) SECONDS INR (0.93-1.08) APTT (25.1-36.5) Seconds pCO2 (35-45) mm/Hg pO2 74 H (30-55) mm/Hg HCO3 (21-28) mmol/L ABG pH (7.35-7.45) ABG Total CO2 (22-28) mmol.L ABG O2 Saturation (95-98) % ABG O2 Content (15-23) ML/dl ABG Base Excess (-2.0-3.0) mmol/L ABG Hemoglobin (11.7-17.4) g/dL ABG Carboxyhemoglobin (0.5-1.5) % POC ABG HHb (Measured) (0-5) % ABG Methemoglobin (0.0-3.0) % ABG O2 Capacity (16-24) mL/dl VBG pH 7.42 (7.32-7.43) VBG pCO2 34.0 L (40-60) VBG HCO3 22.1 (21-28) mmol/l VBG Total CO2 23.1 (22-28) mmol.L VBG O2 Sat (Calc) 99.1 H (40-65) % VBG Base Excess -1.7 L (0.0-2.0) mmol/L VBG Potassium 3.0 L (3.6-5.2) mmol/L Hgb O2 Saturation (95.0-98.0) % Sodium 137.0 (132-148) mmol/L Chloride 110.0 H (98-107) mmol/L Glucose 420 H* D (75-110) mg/dl Lactate 1.6 (0.7-2.1) mmol/L FiO2 21.0 % Potassium (3.6-5.0) mmol/L Carbon Dioxide (21-33) mmol/L Anion Gap (10-20) BUN (7-21) mg/dL Creatinine (0.8-1.5) mg/dl Est GFR ( Amer) Est GFR (Non-Af Amer) POC Glucose (mg/dL) 158 H (65-110) mg/dL Random Glucose (70-110) mg/dL Calcium (8.4-10.5) mg/dL Phosphorus (2.5-4.5) mg/dL Magnesium (1.7-2.2) mg/dL Total Bilirubin (0.2-1.3) mg/dL AST (17-59) U/L ALT (7-56) U/L Alkaline Phosphatase (38-126) U/L Ammonia (9-33) umol/L Total Protein (5.8-8.3) g/dL Albumin (3.0-4.8) g/dL Globulin gm/dL Albumin/Globulin Ratio (1.1-1.8) Procalcitonin (0.19-0.49) NG/ML Free T4 (0.78-2.19) ng/dL TSH 3rd Generation (0.46-4.68) mIU/mL Venous Blood Potassium 3.0 L (3.6-5.2) mmol/L Laboratory Results - last 24 hr 03/23/18 03/23/18 03/23/18 11:52 13:45 13:45 WBC RBC Hgb Hct MCV MCH MCHC RDW Plt Count MPV Gran % Lymph % (Auto) [place] % (Auto) Eos % (Auto) Baso % (Auto) Gran # Lymph # (Auto) [place] # (Auto) Eos # (Auto) Baso # (Auto) PT INR APTT pCO2 pO2 74 H HCO3 ABG pH ABG Total CO2 ABG O2 Saturation ABG O2 Content ABG Base Excess ABG Hemoglobin ABG Carboxyhemoglobin POC ABG HHb (Measured) ABG Methemoglobin ABG O2 Capacity VBG pH 7.42 VBG pCO2 34.0 L VBG HCO3 22.1 VBG Total CO2 23.1 VBG O2 Sat (Calc) 99.1 H VBG Base Excess -1.7 L VBG Potassium 3.0 L Hgb O2 Saturation Sodium 137.0 Chloride 110.0 H Glucose 420 H* D Lactate 1.6 FiO2 21.0 Potassium Carbon Dioxide Anion Gap BUN Creatinine Est GFR ( Amer) Est GFR (Non-Af Amer) POC Glucose (mg/dL) 158 H Random Glucose Calcium Phosphorus Magnesium Total Bilirubin AST ALT Alkaline Phosphatase Ammonia Total Protein Albumin Globulin Albumin/Globulin Ratio Procalcitonin Free T4 1.13 TSH 3rd Generation 0.29 L Venous Blood Potassium 3.0 L 03/23/18 03/23/18 03/23/18 14:02 15:00 15:58 WBC RBC Hgb Hct MCV MCH MCHC RDW Plt Count MPV Gran % Lymph % (Auto) [place] % (Auto) Eos % (Auto) Baso % (Auto) Gran # Lymph # (Auto) [place] # (Auto) Eos # (Auto) Baso # (Auto) PT INR APTT pCO2 pO2 HCO3 ABG pH ABG Total CO2 ABG O2 Saturation ABG O2 Content ABG Base Excess ABG Hemoglobin ABG Carboxyhemoglobin POC ABG HHb (Measured) ABG Methemoglobin ABG O2 Capacity VBG pH VBG pCO2 VBG HCO3 VBG Total CO2 VBG O2 Sat (Calc) VBG Base Excess VBG Potassium Hgb O2 Saturation Sodium Chloride Glucose Lactate FiO2 Potassium Carbon Dioxide Anion Gap BUN Creatinine Est GFR ( Amer) Est GFR (Non-Af Amer) POC Glucose (mg/dL) 168 H 138 H Random Glucose Calcium Phosphorus Magnesium Total Bilirubin AST ALT Alkaline Phosphatase Ammonia Total Protein Albumin Globulin Albumin/Globulin Ratio Procalcitonin 1.82 H Free T4 TSH 3rd Generation Venous Blood Potassium 03/23/18 03/23/18 03/23/18 18:07 20:08 22:05 WBC RBC Hgb Hct MCV MCH MCHC RDW Plt Count MPV Gran % Lymph % (Auto) [place] % (Auto) Eos % (Auto) Baso % (Auto) Gran # Lymph # (Auto) [place] # (Auto) Eos # (Auto) Baso # (Auto) PT INR APTT pCO2 pO2 HCO3 ABG pH ABG Total CO2 ABG O2 Saturation ABG O2 Content ABG Base Excess ABG Hemoglobin ABG Carboxyhemoglobin POC ABG HHb (Measured) ABG Methemoglobin ABG O2 Capacity VBG pH VBG pCO2 VBG HCO3 VBG Total CO2 VBG O2 Sat (Calc) VBG Base Excess VBG Potassium Hgb O2 Saturation Sodium Chloride Glucose Lactate FiO2 Potassium Carbon Dioxide Anion Gap BUN Creatinine Est GFR ( Amer) Est GFR (Non-Af Amer) POC Glucose (mg/dL) 137 H 145 H 144 H Random Glucose Calcium Phosphorus Magnesium Total Bilirubin AST ALT Alkaline Phosphatase Ammonia Total Protein Albumin Globulin Albumin/Globulin Ratio Procalcitonin Free T4 TSH 3rd Generation Venous Blood Potassium 03/24/18 03/24/18 03/24/18 02:00 03:42 06:17 WBC RBC Hgb Hct MCV MCH MCHC RDW Plt Count MPV Gran % Lymph % (Auto) [place] % (Auto) Eos % (Auto) Baso % (Auto) Gran # Lymph # (Auto) [place] # (Auto) Eos # (Auto) Baso # (Auto) PT INR APTT pCO2 pO2 HCO3 ABG pH ABG Total CO2 ABG O2 Saturation ABG O2 Content ABG Base Excess ABG Hemoglobin ABG Carboxyhemoglobin POC ABG HHb (Measured) ABG Methemoglobin ABG O2 Capacity VBG pH VBG pCO2 VBG HCO3 VBG Total CO2 VBG O2 Sat (Calc) VBG Base Excess VBG Potassium Hgb O2 Saturation Sodium Chloride Glucose Lactate FiO2 Potassium Carbon Dioxide Anion Gap BUN Creatinine Est GFR ( Amer) Est GFR (Non-Af Amer) POC Glucose (mg/dL) 106 95 138 H Random Glucose Calcium Phosphorus Magnesium Total Bilirubin AST ALT Alkaline Phosphatase Ammonia Total Protein Albumin Globulin Albumin/Globulin Ratio Procalcitonin Free T4 TSH 3rd Generation Venous Blood Potassium 03/24/18 03/24/18 03/24/18 08:00 08:20 08:20 WBC 21.4 H D RBC 4.00 Hgb 11.8 L Hct 36.1 L MCV 90.3 MCH 29.5 MCHC 32.7 RDW 19.3 H Plt Count 51 L MPV 10.3 Gran % 94.2 H Lymph % (Auto) 2.4 L [place] % (Auto) 3.3 Eos % (Auto) 0.0 L Baso % (Auto) 0.1 Gran # 20.09 H Lymph # (Auto) 0.5 L [place] # (Auto) 0.7 H Eos # (Auto) 0.0 Baso # (Auto) 0.03 PT INR APTT pCO2 37 pO2 75.0 L HCO3 17.8 L ABG pH 7.29 L ABG Total CO2 18.9 L ABG O2 Saturation 96.9 ABG O2 Content 14.5 L ABG Base Excess -8.1 L ABG Hemoglobin 11.0 L ABG Carboxyhemoglobin 2.7 H POC ABG HHb (Measured) 3.0 ABG Methemoglobin 1.0 ABG O2 Capacity 15.0 L VBG pH VBG pCO2 VBG HCO3 VBG Total CO2 VBG O2 Sat (Calc) VBG Base Excess VBG Potassium Hgb O2 Saturation 93.3 L Sodium 149 H Chloride 117 H Glucose Lactate FiO2 50.0 Potassium 4.3 Carbon Dioxide 20 L Anion Gap 17 BUN 30 H Creatinine 1.9 H Est GFR ( Amer) 44 Est GFR (Non-Af Amer) 36 POC Glucose (mg/dL) Random Glucose 115 H Calcium 7.3 L Phosphorus 5.5 H Magnesium 1.8 Total Bilirubin 18.3 H* AST 90 H ALT 50 Alkaline Phosphatase 174 H Ammonia Total Protein 5.9 Albumin 2.0 L Globulin 3.8 Albumin/Globulin Ratio 0.5 L Procalcitonin Free T4 TSH 3rd Generation Venous Blood Potassium 03/24/18 03/24/18 08:20 08:20 WBC RBC Hgb Hct MCV MCH MCHC RDW Plt Count MPV Gran % Lymph % (Auto) [place] % (Auto) Eos % (Auto) Baso % (Auto) Gran # Lymph # (Auto) [place] # (Auto) Eos # (Auto) Baso # (Auto) PT 27.0 H INR 2.31 H APTT 46.5 H pCO2 pO2 HCO3 ABG pH ABG Total CO2 ABG O2 Saturation ABG O2 Content ABG Base Excess ABG Hemoglobin ABG Carboxyhemoglobin POC ABG HHb (Measured) ABG Methemoglobin ABG O2 Capacity VBG pH VBG pCO2 VBG HCO3 VBG Total CO2 VBG O2 Sat (Calc) VBG Base Excess VBG Potassium Hgb O2 Saturation Sodium Chloride Glucose Lactate FiO2 Potassium Carbon Dioxide Anion Gap BUN Creatinine Est GFR ( Amer) Est GFR (Non-Af Amer) POC Glucose (mg/dL) Random Glucose Calcium Phosphorus Magnesium Total Bilirubin AST ALT Alkaline Phosphatase Ammonia 305 H* Total Protein Albumin Globulin Albumin/Globulin Ratio Procalcitonin Free T4 TSH 3rd Generation Venous Blood Potassium Critical Care Progress Note - Nutrition Nutrition: Nutrition Category Date Time Status NPO Diet [DIET] Diets 03/15/18 Breakfast Ordered Attending/Attestation - Attestation I have personally seen and examined this patient.: Yes I have fully participated in the care of the patient.: Yes I have reviewed all pertinent clinical information: Yes Notes (Text): 03/24/18 11:16 The patient was seen and examined at the bedside. Patient care was discussed with resident Medical records, lab studies were reviewed and management issues were discussed and formulated. Last 24H events reviewed. Agree with above treatment plans as outlined in ' s note with addition of the following: Cardiopulmonary Arrest \ Acute Respiratory Failure \ Hypoxemia \ Hemorrhagic CVA \ Septic Shock \ Liver Cirhosis \ WANDA \ PNA \ Anoxic Brain injury -hemodynamic monitoring to maintain MAP>65 -continue vasopressor support with levophed and neosynephrine; continue stress steroids -mechanical ventilation to maintain Spo2>90 Pao2>60; current mode PRVC -monitor for TV 6ml\kg IBW and plateau pressure <30 -ABG reviewed and CXR reviewed -Continue broad spectrum Abx as per ID team and f\u cultures -f\u Bun\Cr and U\o -continue antiseizure meds (Keppra) and f\u EEG results; seizure precautions and Ativan PRN -neurology team f\u -tube feeds diet and aspiration precautions -f\u serial LFT; GI team f\u; increase lactulose and titrate to 3 BM per day -DVT \ PUD prophylaxis -palliation team eval f\u CCM time 35min
[2018-03-24] MEDS: Insulin Reg-LOW-Coverage SC SCH ×3 (12:00→21:51)
[2018-03-25] MEDS: Levothyroxine 75 MCG TAB PO SCH (05:00)
[2018-03-25] MEDS: Sucralfate 1 gm/10 ml Oral Susp UD PO SCH (05:00)
[2018-03-25 07:08] LABS: BASO # 0.01 K/mm3 (0.0-2.0); BASO % 0.1 % (0.0-3.0); GRAN # 13.81 (1.4-6.5); GRAN % 92.4 % (50.0-68.0); HEMOGLOBIN 10.9 g/dL (14.0-18.0); LYMPH # 0.4 (1.2-3.4); LYMPH % 2.8 % (22.0-35.0); MEAN CELL VOLUME 89.3 fl (80.0-105.0); MEAN CORPUSCULAR HEMOGLOBIN 29.1 pg (25.0-35.0); MEAN CORPUSCULAR HGB CONC 32.5 g/dl (31.0-37.0); MEAN PLATELET VOLUME 10.4 fl (7.0-11.0); MONO # 0.7 (0.1-0.6); MONO % 4.7 % (1.0-6.0); RBC 3.75 10^6/uL (3.5-6.1); RED CELL DISTRIBUTION WIDTH 20.1 % (11.5-14.5); WHITE BLOOD COUNT 14.9 10^3/ul (4.5-11.0)
[2018-03-25 07:30] LABS: ALB/GLOB RATIO 0.5 (1.1-1.8); ALBUMIN 1.9 g/dL (3.0-4.8); CALCIUM 6.6 mg/dL (8.4-10.5)
[2018-03-25 07:32] LABS: INR 2.54 (0.93-1.08); PARTIAL THROMBOPLASTIN TIME 53.9 Seconds (25.1-36.5); PROTHROMBIN TIME 29.8 SECONDS (9.4-12.5)
--- NOTE | 2018-03-25 07:49 | CP.PCM.PN ---
<Jacinto Lea - Last Filed: 03/25/18 12:50> Subjective - Date & Time of Evaluation Date of Evaluation: 03/25/18 Time of Evaluation: 07:35 - Subjective Subjective: Medicine Note for Dr. Leavitt Patient seen and examined at bedside. No acute event overnight. Patient is unresponsive to any type of stimuli. He is now on two pressors. Patient has poor prognosis. Cerebral blood fow study to assess for brain today. Objective - Vital Signs/Intake and Output Vital Signs (last 24 hours): Temp Pulse Resp BP Pulse Ox 96.6 F L 88 21 124/69 97 03/25/18 06:30 03/25/18 06:30 03/24/18 15:59 03/25/18 06:30 03/25/18 06:30 Intake and Output: 03/25/18 03/25/18 06:59 18:59 Intake Total 2153 Output Total 50 Balance 2103 - Medications Medications: Current Medications Bacitracin (Bacitracin) 1 ea TOP BID PRN PRN Reason: ARM BLISTERS Last Admin: 03/23/18 14:10 Dose: 1 ea Hydrocortisone Sodium Succinate (Solu-Cortef) 80 mg IVP Q8 [facility] Last Admin: 03/25/18 05:00 Dose: 80 mg Sodium Chloride (Hypertonic Saline 3%) 500 mls @ 30 mls/hr IV .[id number] [facility] Last Admin: 03/15/18 10:50 Dose: 30 mls/hr Levetiracetam (Keppra 500mg Ivpb) 500 mg in 100 mls @ 400 mls/hr IV Q12 [facility] Last Admin: 03/24/18 21:14 Dose: 400 mls/hr Multivitamins/Vitamin C 10 ml/ (Dextrose) 1,010 mls @ 75 mls/hr IV .[id number] [facility] Last Admin: 03/24/18 17:26 Dose: 75 mls/hr NOREPINEPHRINE BIT/0.9 % NACL (Levophed 4 Mg/ 250 Ml Ns Premixed) 4 mg in 250 mls @ 15 mls/hr IV .[id number] PRN; Protocol; 4 MCG/MIN PRN Reason: TITRATE PER MD ORDER Last Titration: 03/25/18 05:03 Dose: 13 mcg/min, 48.75 mls/hr Vancomycin HCl (Vancomycin 1gm) 1 gm in 250 mls @ 167 mls/hr IVPB Q12H [facility] PRN Reason: Protocol Last Admin: 03/24/18 22:29 Dose: 167 mls/hr Phenylephrine HCl 40 mg/ (Sodium Chloride) 254 mls @ 38.1 mls/hr IV .Q6H40M PRN ; Protocol; 100 MCG/MIN PRN Reason: TITRATE PER MD ORDER Last Titration: 03/25/18 04:00 Dose: 60 mcg/min, 22.86 mls/hr Meropenem (Merrem Iv 1 Gm Premix) 50 mls @ 100 mls/hr IVPB Q12 [facility] PRN Reason: Protocol Last Admin: 03/24/18 21:13 Dose: 100 mls/hr Insulin Detemir (Levemir) 20 unit SC Q12H [facility] Last Admin: 03/24/18 21:00 Dose: 20 unit Insulin Human Regular (Humulin R Low) 0 units SC ACHS [facility] PRN Reason: Protocol Last Admin: 03/24/18 21:51 Dose: Not Given Labetalol HCl (Trandate) 10 mg IV Q4 PRN PRN Reason: Blood Pressure 220/110 & above Last Admin: 03/23/18 00:52 Dose: 2 ml Lactulose (Enulose) 30 gm PO Q4H [facility] Last Admin: 03/25/18 04:56 Dose: 30 gm Levothyroxine Sodium (Synthroid) 75 mcg PO 0600 [facility] Last Admin: 03/25/18 05:00 Dose: 75 mcg Ondansetron HCl (Zofran Inj) 4 mg IVP Q6H PRN PRN Reason: Nausea/Vomiting Last Admin: 03/15/18 00:14 Dose: 4 mg Pantoprazole Sodium (Protonix Inj) 40 mg IVP DAILY [facility] Last Admin: 03/24/18 09:50 Dose: 40 mg Rifaximin (Xifaxan) 550 mg PO BID [facility] PRN Reason: Protocol Last Admin: 03/24/18 17:18 Dose: 550 mg Sucralfate (Carafate Oral Susp) 1 gm PO 0600,1600 [facility] Last Admin: 03/25/18 05:00 Dose: 1 gm - Labs Labs: 03/25/18 07:01 03/25/18 07:01 PT 29.8 SECONDS (9.4-12.5) H 03/25/18 07:01 INR 2.54 (0.93-1.08) H 03/25/18 07:01 APTT 53.9 Seconds (25.1-36.5) H 03/25/18 07:01 - Additional Findings Additional findings: - Constitutional Appears: Chronically Ill - Head Exam Head Exam: NORMOCEPHALIC - Eye Exam Eye Exam: Scleral icterus - ENT Exam ENT Exam: Mucous Membranes Dry - Respiratory Exam Additional comments: intubated and on PRVC vent support (450, 5, 18, 50%) - Cardiovascular Exam Cardiovascular Exam: REGULAR RHYTHM - GI/Abdominal Exam GI & Abdominal Exam: Distended - Extremities Exam Additional comments: numerous skin breaks on all four extremities, optiform bandages covering - Back Exam Back Exam: absent: CVA tenderness (L), CVA tenderness (R) - Neurological Exam Neurological Exam: Altered, no corneal/gag reflex illicited - Psychiatric Exam Psychiatric exam: Flat Affect - Skin Skin Exam: Dry, Warm Assessment and Plan - Assessment and Plan (Free Text) Plan: Neuro f/u EEG (03/23) Head CT: Re- demonstrated is a large hematoma which occupies a portion of the left cerebral hemisphere extending from the left posterior temporal region into the left basal ganglia parietal and posterior frontal regions to the vertex. bilateral subarachnoid hemorrhage. wide margin of low-attenuation edema and or necrotic brain tissue. surrounding mass effect with overlying sulcal effacement and compression of left lateral ventricle with the shifted across midline. apparent uncal herniation. suspected tonsillar herniation. diffuse cerebral edema with loss of the cortical medullary junction (see full report) (03/15) Head CT showed massive hemorrhage in left partietal lobe extending to cortical surface with 11mm of midline shift (03/16) head CT showed new subarachnoid hemorrhage over the right hemisphere Neurosurgery consult, no surgical intervention, poor prognosis Neurology consult, help appreciated keppra lactulose and rifaximin Palliative care consult HOB 30 degrees Cardio Levophed Phenyephrine Maintain MAP > 65 Pulm Intubated, PRVC Maintain sat > 90% family does not want trach at this time GI NPO Continue sucralfate No PEG by family at this time Renal Strict I's & O's Monitor Urine output Aldactone ID febrile ID consult ofirmev Monitor Endo Synthroid 75 ISS Maintain euglycemia 140-180 GI/DVT ppx: Protonix, no chemical anticoagulation Disp: Patient has poor prognosis. Cerebral blood flow test to assess for brain . Case discussed with Dr. Dagmar Lea PGY1 <Jona Leavitt - Last Filed: 03/25/18 14:53> Objective - Vital Signs/Intake and Output Vital Signs (last 24 hours): Temp Pulse Resp BP Pulse Ox 95.4 F L 87 21 112/59 L 97 03/25/18 11:30 03/25/18 11:30 03/24/18 15:59 03/25/18 11:30 03/25/18 11:30 Intake and Output: 03/25/18 03/25/18 06:59 18:59 Intake Total 2153 255 Output Total 50 Balance 2103 255 - Medications Medications: Current Medications Bacitracin (Bacitracin) 1 ea TOP BID PRN PRN Reason: ARM BLISTERS Last Admin: 03/23/18 14:10 Dose: 1 ea Hydrocortisone Sodium Succinate (Solu-Cortef) 80 mg IVP Q8 [facility] Last Admin: 03/25/18 05:00 Dose: 80 mg Sodium Chloride (Hypertonic Saline 3%) 500 mls @ 30 mls/hr IV .[id number] [facility] Last Admin: 03/15/18 10:50 Dose: 30 mls/hr Levetiracetam (Keppra 500mg Ivpb) 500 mg in 100 mls @ 400 mls/hr IV Q12 [facility] Last Admin: 03/25/18 10:00 Dose: 400 mls/hr Multivitamins/Vitamin C 10 ml/ (Dextrose) 1,010 mls @ 75 mls/hr IV .[id number] [facility] Last Admin: 03/25/18 10:01 Dose: 75 mls/hr NOREPINEPHRINE BIT/0.9 % NACL (Levophed 4 Mg/ 250 Ml Ns Premixed) 4 mg in 250 mls @ 15 mls/hr IV .[id number] PRN; Protocol; 4 MCG/MIN PRN Reason: TITRATE PER MD ORDER Last Admin: 03/25/18 09:11 Dose: 8 mcg/min, 30 mls/hr Vancomycin HCl (Vancomycin 1gm) 1 gm in 250 mls @ 167 mls/hr IVPB Q12H [facility] PRN Reason: Protocol Last Admin: 03/25/18 09:58 Dose: 167 mls/hr Phenylephrine HCl 40 mg/ (Sodium Chloride) 254 mls @ 38.1 mls/hr IV .Q6H40M PRN ; Protocol; 100 MCG/MIN PRN Reason: TITRATE PER MD ORDER Last Admin: 03/25/18 09:10 Dose: 40 mcg/min, 15.24 mls/hr Meropenem (Merrem Iv 1 Gm Premix) 50 mls @ 100 mls/hr IVPB Q12 [facility] PRN Reason: Protocol Last Admin: 03/25/18 09:59 Dose: 100 mls/hr Insulin Detemir (Levemir) 20 unit SC Q12H [facility] Last Admin: 03/25/18 08:20 Dose: 20 unit Insulin Human Regular (Humulin R Low) 0 units SC ACHS [facility] PRN Reason: Protocol Last Admin: 03/25/18 08:21 Dose: 1 units Labetalol HCl (Trandate) 10 mg IV Q4 PRN PRN Reason: Blood Pressure 220/110 & above Last Admin: 03/23/18 00:52 Dose: 2 ml Lactulose (Enulose) 30 gm PO Q4H [facility] Last Admin: 03/25/18 09:57 Dose: 30 gm Levothyroxine Sodium (Synthroid) 75 mcg PO 0600 [facility] Last Admin: 03/25/18 05:00 Dose: 75 mcg Ondansetron HCl (Zofran Inj) 4 mg IVP Q6H PRN PRN Reason: Nausea/Vomiting Last Admin: 03/15/18 00:14 Dose: 4 mg Pantoprazole Sodium (Protonix Inj) 40 mg IVP DAILY [facility] Last Admin: 03/24/18 09:50 Dose: 40 mg Rifaximin (Xifaxan) 550 mg PO BID [facility] PRN Reason: Protocol Last Admin: 03/25/18 09:58 Dose: 550 mg Sucralfate (Carafate Oral Susp) 1 gm PO 0600,1600 [facility] Last Admin: 03/25/18 05:00 Dose: 1 gm - Labs Labs: 03/25/18 07:01 03/25/18 07:01 PT 29.8 SECONDS (9.4-12.5) H 03/25/18 07:01 INR 2.54 (0.93-1.08) H 03/25/18 07:01 APTT 53.9 Seconds (25.1-36.5) H 03/25/18 07:01 Attending/Attestation - Attestation I have personally seen and examined this patient.: Yes I have fully participated in the care of the patient.: Yes I have reviewed all pertinent clinical information, including history, physical exam and plan: Yes Notes (Text): 03/25/18 14:50 Medical record note made by the resident after discussion with my direction and input after the patient was personally seen and examined by me. I have reviewed the chart and agree that the record accurately reflects by personal performance of the history, physical exam, data review, and medical decision-making, in the course for the patient. I have also personally directed the plan of care. 62 yrs old male with PMH of Hep c ,chronic liver disease, Thrombocytopenia , Ascites was admitted with change of mental status due to hepatic encephlopathy.He initially responded well to lactulose , however his mental status deteriorated and Patient developed intracranial hemorrhage with midline shift on 03/15/18, he was intubated for air way protection ..Patient was evaluated by Neuro surgery , he was not a cabdidate for any Neuro surgery intervention.He had cardiac arrest on 03/23/18 and was resuscitated.He is unresponsive today, Pupils are dilated.There is no gag reflex and no respiration. Brain Flow nuclear study today was consistent with brain and after discussion with family , patient was extubated , he after extubation.
[2018-03-25] MEDS: Insulin Detemir 100 units/ml Vial (Levemir) SC SCH (08:20)
[2018-03-25] MEDS: Insulin Reg-LOW-Coverage SC SCH (08:21)
[2018-03-25] MEDS: NOREPINEPHRINE BIT/0.9 % NACL 4 MG/250 ML BAG IV PRN (09:11)
[2018-03-25] MEDS: Vancomycin 1gm in NS 250ml 1 GM/250 ML BAG IVPB SCH (09:58)
[2018-03-25] MEDS: Meropenem IV 1 gm in NS 50 ML IVPB SCH (09:59)
[2018-03-25] MEDS: levETIRAcetam 500mg IVPB 500 MG/100 ML BAG IV SCH (10:00)
[2018-03-25] MEDS: Multivitamin (MVI) 10 ML in Dextrose 5% In Water 1,000 ML IV SCH (10:01)
--- NOTE | 2018-03-25 10:28 | CP.CCUPN ---
<Tommy Mcconnell - Last Filed: 03/25/18 10:24> CCU Subjective - Physician Review Subjective (Free Text): 03/25/18 10:28 Tommy Mcconnell D.O. PGY-2, Internal Medicine Resident, Critical Care Progress Note 62 year old male with a PMH of end stage liver disease, Hep C, Cirrhosis, DM, non compliance, admitted with devastating L IPH now with ZAC. Patient was seen and examined. Neurologically unchanged. Still on pressors. Discussed with family last night his poor prognosis and they want formal evaluation for brain . No major overnight events. CCU Objective - Vital Signs / Intake & Output Vital Signs (Last 4 hours): Vital Signs Temp Pulse BP Pulse Ox 03/25/18 06:30 96.6 F L 88 124/69 97 Intake and Output (Last 8hrs): Intake & Output 03/24/18 03/25/18 03/25/18 22:59 06:59 14:59 Intake Total 3167 1570 255 Output Total 50 50 Balance 3117 1520 255 Intake: IV 2987 1570 255 Right Forearm 500 keppra 100 multi vit 2054 900 Tube Feeding 180 Output: Urine 50 50 Urethral (Serna) 50 50 Other: # Bowel Movements 1 2 - Physical Exam Head: Positive for: Atraumatic, Normocephalic Pupils: Positive for: Other (4 mm non-responsive) Extroacular Muscles: Positive for: EOMI Conjunctiva: Positive for: Normal. Negative for: Injected Ears: Positive for: Normal Mouth: Positive for: Moist Mucous Membranes, Other (intubated) Nose (External): Positive for: Atraumatic Neck: Positive for: Trachea Midline Respiratory/Chest: Positive for: Clear to Auscultation, Other (intubated) Cardiovascular: Positive for: Regular Rate and Rhythm, Normal S1, S2. Negative for: Murmurs, Tachycardic Abdomen: Positive for: Normal Bowel Sounds. Negative for: Tenderness, Distention, Peritoneal Signs, Rebound, Guarding, Mass/Organomegaly Back: Positive for: Normal Inspection Upper Extremity: Positive for: Normal Inspection. Negative for: Cyanosis, Edema Lower Extremity: Positive for: Normal Inspection, NORMAL PULSES. Negative for: Edema, CALF TENDERNESS Neurological: Positive for: Other (GCS 3, no gag present, no corneal reflex, no breath initiation on vent) Skin: Positive for: Warm, Dry, Normal Color. Negative for: Rashes - Medications Active Medications: Active Medications Generic Name Dose Route Start Last Admin Trade Name Freq PRN Reason Stop Dose Admin Bacitracin 1 ea 03/23/18 12:16 03/23/18 14:10 Bacitracin TOP 1 ea BID PRN Administration ARM BLISTERS Hydrocortisone Sodium Succinate 80 mg 03/24/18 00:30 03/25/18 05:00 Solu-Cortef IVP 80 mg Q8 KAVIN Administration Sodium Chloride 500 mls @ 30 mls/hr 03/15/18 09:45 03/15/18 10:50 Hypertonic Saline 3% IV 30 mls/hr .[id number] KAVIN Administration Levetiracetam 500 mg in 100 mls @ 400 mls/hr 03/15/18 12:00 03/25/18 10:00 Keppra 500mg Ivpb IV 400 mls/hr Q12 KAVIN Administration Multivitamins/Vitamin C 10 ml/ 1,010 mls @ 75 mls/hr 03/20/18 17:15 03/25/18 10:01 Dextrose IV 75 mls/hr .[id number] KAVIN Administration NOREPINEPHRINE BIT/0.9 % NACL 4 mg in 250 mls @ 15 mls/hr 03/23/18 02:22 09:11 Levophed 4 Mg/ 250 Ml Ns Premixed IV 8 mcg/min .[id number] PRN 30 mls/hr TITRATE PER MD ORDER Administration Protocol 4 MCG/MIN Vancomycin HCl 1 gm in 250 mls @ 167 mls/hr 03/23/18 10:45 03/25/18 09:58 Vancomycin 1gm IVPB 167 mls/hr Q12H KAVIN Administration Protocol Phenylephrine HCl 40 mg/ 254 mls @ 38.1 mls/hr 03/24/18 00:25 03/25/18 09:10 Sodium Chloride IV 40 mcg/min .[id number] PRN 15.24 mls/hr TITRATE PER MD ORDER Administration Protocol 100 MCG/MIN Meropenem 50 mls @ 100 mls/hr 03/24/18 10:09 03/25/18 09:59 Merrem Iv 1 Gm Premix IVPB 100 mls/hr Q12 KAVIN Administration Protocol Insulin Detemir 20 unit 03/24/18 08:00 03/25/18 08:20 Levemir SC 20 unit Q12H [facility] Administration Insulin Human Regular 0 units 03/24/18 11:30 03/25/18 08:21 Humulin R Low SC 1 units ACHS [facility] Administration Protocol Labetalol HCl 10 mg 03/15/18 03:08 03/23/18 00:52 Trandate IV 2 ml Q4 PRN Administration Blood Pressure 220/110 & above Lactulose 30 gm 03/24/18 09:30 03/25/18 09:57 Enulose PO 30 gm Q4H KAVIN Administration Levothyroxine Sodium 75 mcg 03/17/18 09:51 03/25/18 05:00 Synthroid PO 75 mcg 0600 [facility] Administration Ondansetron HCl 4 mg 03/14/18 23:32 03/15/18 00:14 Zofran Inj IVP 4 mg Q6H PRN Administration Nausea/Vomiting Pantoprazole Sodium 40 mg 03/18/18 10:00 03/24/18 09:50 Protonix Inj IVP 40 mg DAILY [facility] Administration Rifaximin 550 mg 03/21/18 10:00 03/25/18 09:58 Xifaxan PO 550 mg BID [facility] Administration Protocol Sucralfate 1 gm 03/20/18 16:00 03/25/18 05:00 Carafate Oral Susp PO 1 gm 0600,1600 [facility] Administration - Patient Studies Lab Studies: Microbiology Studies 03/23/18 22:30 Urine Culture - Final Urine,Serna No Growth (<1,000 CFU/ML) 03/23/18 13:45 Blood Culture - Preliminary Blood NO GROWTH AFTER 24 HOURS 03/24/18 10:22 C. difficile Antigen & Toxin A,B (M - Final Stool Lab Studies 03/25/18 03/25/18 03/25/18 Range/Units 07:01 07:01 07:01 WBC 14.9 H D (4.5-11.0) 10^3/ul RBC 3.75 (3.5-6.1) 10^6/uL Hgb 10.9 L (14.0-18.0) g/dL Hct 33.5 L (42.0-52.0) % MCV 89.3 (80.0-105.0) fl MCH 29.1 (25.0-35.0) pg MCHC 32.5 (31.0-37.0) g/dl RDW 20.1 H (11.5-14.5) % Plt Count 65 L (120.0-450.0) 10^3/uL MPV 10.4 (7.0-11.0) fl Gran % 92.4 H (50.0-68.0) % Lymph % (Auto) 2.8 L (22.0-35.0) % [place] % (Auto) 4.7 (1.0-6.0) % Eos % (Auto) 0.0 L (1.5-5.0) % Baso % (Auto) 0.1 (0.0-3.0) % Gran # 13.81 H (1.4-6.5) Lymph # (Auto) 0.4 L (1.2-3.4) [place] # (Auto) 0.7 H (0.1-0.6) Eos # (Auto) 0.0 (0.0-0.7) Baso # (Auto) 0.01 (0.0-2.0) K/mm3 PT 29.8 H (9.4-12.5) SECONDS INR 2.54 H (0.93-1.08) APTT 53.9 H (25.1-36.5) Seconds Sodium 147 (132-148) mmol/L Potassium 4.2 (3.6-5.0) mmol/L Chloride 116 H (98-107) mmol/L Carbon Dioxide 17 L (21-33) mmol/L Anion Gap 19 (10-20) BUN 43 H (7-21) mg/dL Creatinine 2.9 H (0.8-1.5) mg/dl Est GFR ( Amer) 27 Est GFR (Non-Af Amer) 22 POC Glucose (mg/dL) (65-110) mg/dL Random Glucose 194 H (70-110) mg/dL Calcium 6.6 L* (8.4-10.5) mg/dL Phosphorus 6.7 H (2.5-4.5) mg/dL Magnesium 1.7 (1.7-2.2) mg/dL Total Bilirubin 17.1 H (0.2-1.3) mg/dL AST 145 H D (17-59) U/L ALT 51 (7-56) U/L Alkaline Phosphatase 160 H (38-126) U/L Ammonia (9-33) umol/L Total Protein 5.5 L (5.8-8.3) g/dL Albumin 1.9 L (3.0-4.8) g/dL Globulin 3.6 gm/dL Albumin/Globulin Ratio 0.5 L (1.1-1.8) 03/25/18 03/24/18 03/24/18 Range/Units 07:01 21:19 16:01 WBC (4.5-11.0) 10^3/ul RBC (3.5-6.1) 10^6/uL Hgb (14.0-18.0) g/dL Hct (42.0-52.0) % MCV (80.0-105.0) fl MCH (25.0-35.0) pg MCHC (31.0-37.0) g/dl RDW (11.5-14.5) % Plt Count (120.0-450.0) 10^3/uL MPV (7.0-11.0) fl Gran % (50.0-68.0) % Lymph % (Auto) (22.0-35.0) % [place] % (Auto) (1.0-6.0) % Eos % (Auto) (1.5-5.0) % Baso % (Auto) (0.0-3.0) % Gran # (1.4-6.5) Lymph # (Auto) (1.2-3.4) [place] # (Auto) (0.1-0.6) Eos # (Auto) (0.0-0.7) Baso # (Auto) (0.0-2.0) K/mm3 PT (9.4-12.5) SECONDS INR (0.93-1.08) APTT (25.1-36.5) Seconds Sodium (132-148) mmol/L Potassium (3.6-5.0) mmol/L Chloride (98-107) mmol/L Carbon Dioxide (21-33) mmol/L Anion Gap (10-20) BUN (7-21) mg/dL Creatinine (0.8-1.5) mg/dl Est GFR ( Amer) Est GFR (Non-Af Amer) POC Glucose (mg/dL) 191 H 159 H (65-110) mg/dL Random Glucose (70-110) mg/dL Calcium (8.4-10.5) mg/dL Phosphorus (2.5-4.5) mg/dL Magnesium (1.7-2.2) mg/dL Total Bilirubin (0.2-1.3) mg/dL AST (17-59) U/L ALT (7-56) U/L Alkaline Phosphatase (38-126) U/L Ammonia 105 H (9-33) umol/L Total Protein (5.8-8.3) g/dL Albumin (3.0-4.8) g/dL Globulin gm/dL Albumin/Globulin Ratio (1.1-1.8) 03/24/18 03/24/18 Range/Units 11:18 08:09 WBC (4.5-11.0) 10^3/ul RBC (3.5-6.1) 10^6/uL Hgb (14.0-18.0) g/dL Hct (42.0-52.0) % MCV (80.0-105.0) fl MCH (25.0-35.0) pg MCHC (31.0-37.0) g/dl RDW (11.5-14.5) % Plt Count (120.0-450.0) 10^3/uL MPV (7.0-11.0) fl Gran % (50.0-68.0) % Lymph % (Auto) (22.0-35.0) % [place] % (Auto) (1.0-6.0) % Eos % (Auto) (1.5-5.0) % Baso % (Auto) (0.0-3.0) % Gran # (1.4-6.5) Lymph # (Auto) (1.2-3.4) [place] # (Auto) (0.1-0.6) Eos # (Auto) (0.0-0.7) Baso # (Auto) (0.0-2.0) K/mm3 PT (9.4-12.5) SECONDS INR (0.93-1.08) APTT (25.1-36.5) Seconds Sodium (132-148) mmol/L Potassium (3.6-5.0) mmol/L Chloride (98-107) mmol/L Carbon Dioxide (21-33) mmol/L Anion Gap (10-20) BUN (7-21) mg/dL Creatinine (0.8-1.5) mg/dl Est GFR ( Amer) Est GFR (Non-Af Amer) POC Glucose (mg/dL) 136 H 110 (65-110) mg/dL Random Glucose (70-110) mg/dL Calcium (8.4-10.5) mg/dL Phosphorus (2.5-4.5) mg/dL Magnesium (1.7-2.2) mg/dL Total Bilirubin (0.2-1.3) mg/dL AST (17-59) U/L ALT (7-56) U/L Alkaline Phosphatase (38-126) U/L Ammonia (9-33) umol/L Total Protein (5.8-8.3) g/dL Albumin (3.0-4.8) g/dL Globulin gm/dL Albumin/Globulin Ratio (1.1-1.8) Laboratory Results - last 24 hr 03/24/18 03/24/18 03/24/18 08:09 11:18 16:01 WBC RBC Hgb Hct MCV MCH MCHC RDW Plt Count MPV Gran % Lymph % (Auto) [place] % (Auto) Eos % (Auto) Baso % (Auto) Gran # Lymph # (Auto) [place] # (Auto) Eos # (Auto) Baso # (Auto) PT INR APTT Sodium Potassium Chloride Carbon Dioxide Anion Gap BUN Creatinine Est GFR ( Amer) Est GFR (Non-Af Amer) POC Glucose (mg/dL) 110 136 H 159 H Random Glucose Calcium Phosphorus Magnesium Total Bilirubin AST ALT Alkaline Phosphatase Ammonia Total Protein Albumin Globulin Albumin/Globulin Ratio 03/24/18 03/25/18 03/25/18 21:19 07:01 07:01 WBC 14.9 H D RBC 3.75 Hgb 10.9 L Hct 33.5 L MCV 89.3 MCH 29.1 MCHC 32.5 RDW 20.1 H Plt Count 65 L MPV 10.4 Gran % 92.4 H Lymph % (Auto) 2.8 L [place] % (Auto) 4.7 Eos % (Auto) 0.0 L Baso % (Auto) 0.1 Gran # 13.81 H Lymph # (Auto) 0.4 L [place] # (Auto) 0.7 H Eos # (Auto) 0.0 Baso # (Auto) 0.01 PT INR APTT Sodium Potassium Chloride Carbon Dioxide Anion Gap BUN Creatinine Est GFR ( Amer) Est GFR (Non-Af Amer) POC Glucose (mg/dL) 191 H Random Glucose Calcium Phosphorus Magnesium Total Bilirubin AST ALT Alkaline Phosphatase Ammonia 105 H Total Protein Albumin Globulin Albumin/Globulin Ratio 03/25/18 03/25/18 07:01 07:01 WBC RBC Hgb Hct MCV MCH MCHC RDW Plt Count MPV Gran % Lymph % (Auto) [place] % (Auto) Eos % (Auto) Baso % (Auto) Gran # Lymph # (Auto) [place] # (Auto) Eos # (Auto) Baso # (Auto) PT 29.8 H INR 2.54 H APTT 53.9 H Sodium 147 Potassium 4.2 Chloride 116 H Carbon Dioxide 17 L Anion Gap 19 BUN 43 H Creatinine 2.9 H Est GFR ( Amer) 27 Est GFR (Non-Af Amer) 22 POC Glucose (mg/dL) Random Glucose 194 H Calcium 6.6 L* Phosphorus 6.7 H Magnesium 1.7 Total Bilirubin 17.1 H AST 145 H D ALT 51 Alkaline Phosphatase 160 H Ammonia Total Protein 5.5 L Albumin 1.9 L Globulin 3.6 Albumin/Globulin Ratio 0.5 L Fingerstick Blood Sugar Results: 191 Critical Care Progress Note - Nutrition Nutrition: Nutrition Category Date Time Status NPO Diet [DIET] Diets 03/15/18 Breakfast Ordered Assessment/Plan - Assessment and Plan (Free Text) Assessment: 62 year old male with a PMH of end stage liver disease, Hep C, Cirrhosis, DM, non compliance, admitted with devastating L IPH now with ZAC, hospital course complicated by cardiopulmonary arrest with ROSC after ACLS protocol, now hemodynamically unstable with worse neurological function. Plan: Neurologic Neurologically no longer has any function that we can detect, formal evaluation for brain requested by family Pending EEG read, neurology following Will order brain flow NM for evaluation Cont cohen-precautions Cont keppra Palliative care following Cardiovascular S/p cardiac arrest, currently on levophed and phenylephrine gtt Maintain MAP>65 Pulmnologic Continues to be intubated for airway protection, on PRVC On no sedation Maintain sat > 92% Gastrointestinal NPO, had ileus which appears to have resolved Known hepatic encephalopathy, continue lactulose titrated to 3 soft bowel movements a day and rifaximin GI and surgery following MELD 28 Renal Cr and BUN have been increasing, patient appears to be going into MODS On MVI @ 75 Will give 1L NS Monitoring I&Os No acute issues Infectious disease No more fevers last 24 hrs PRN ofirmev Monitoring Endocrinologic Continue levothyroxine 75mcg Hx of DM, on levemir, cont ISS and accuchecks GI/DVT ppx: Protonix, 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) Dispo: currently undergoing evaluation for brain and family will make final decision on extubation Patient was seen and examined and case was discussed at length with attending physician - Date & Time Date: 03/25/18 Time: 07:00 <Fernando Otero - Last Filed: 03/25/18 11:52> CCU Objective - Vital Signs / Intake & Output Vital Signs (Last 4 hours): Vital Signs Temp Pulse BP Pulse Ox 03/25/18 10:30 96.4 F L 87 100/54 L 97 03/25/18 10:00 96.1 F L 85 95/52 L 97 03/25/18 09:30 95.7 F L 84 93/52 L 97 03/25/18 09:00 95.5 F L 84 105/55 L 97 03/25/18 08:30 96.3 F L 86 129/67 97 03/25/18 08:00 96.3 F L 86 146/76 98 Intake and Output (Last 8hrs): Intake & Output 03/24/18 03/25/18 03/25/18 22:59 06:59 14:59 Intake Total 3167 1570 255 Output Total 50 50 Balance 3117 1520 255 Intake: IV 2987 1570 255 Right Forearm 500 keppra 100 multi vit 2054 900 Tube Feeding 180 Output: Urine 50 50 Urethral (Serna) 50 50 Other: # Bowel Movements 1 2 - Medications Active Medications: Active Medications Generic Name Dose Route Start Last Admin Trade Name Freq PRN Reason Stop Dose Admin Bacitracin 1 ea 03/23/18 12:16 03/23/18 14:10 Bacitracin TOP 1 ea BID PRN Administration ARM BLISTERS Hydrocortisone Sodium Succinate 80 mg 03/24/18 00:30 03/25/18 05:00 Solu-Cortef IVP 80 mg Q8 KAVIN Administration Sodium Chloride 500 mls @ 30 mls/hr 03/15/18 09:45 03/15/18 10:50 Hypertonic Saline 3% IV 30 mls/hr .[id number] [facility] Administration Levetiracetam 500 mg in 100 mls @ 400 mls/hr 03/15/18 12:00 03/25/18 10:00 Keppra 500mg Ivpb IV 400 mls/hr Q12 [facility] Administration Multivitamins/Vitamin C 10 ml/ 1,010 mls @ 75 mls/hr 03/20/18 17:15 03/25/18 10:01 Dextrose IV 75 mls/hr .[id number] [facility] Administration NOREPINEPHRINE BIT/0.9 % NACL 4 mg in 250 mls @ 15 mls/hr 03/23/18 02:22 09:11 Levophed 4 Mg/ 250 Ml Ns Premixed IV 8 mcg/min .[id number] PRN 30 mls/hr TITRATE PER MD ORDER Administration Protocol 4 MCG/MIN Vancomycin HCl 1 gm in 250 mls @ 167 mls/hr 03/23/18 10:45 03/25/18 09:58 Vancomycin 1gm IVPB 167 mls/hr Q12H [facility] Administration Protocol Phenylephrine HCl 40 mg/ 254 mls @ 38.1 mls/hr 03/24/18 00:25 03/25/18 09:10 Sodium Chloride IV 40 mcg/min .[id number] PRN 15.24 mls/hr TITRATE PER MD ORDER Administration Protocol 100 MCG/MIN Meropenem 50 mls @ 100 mls/hr 03/24/18 10:09 03/25/18 09:59 Merrem Iv 1 Gm Premix IVPB 100 mls/hr Q12 [facility] Administration Protocol Insulin Detemir 20 unit 03/24/18 08:00 03/25/18 08:20 Levemir SC 20 unit Q12H [facility] Administration Insulin Human Regular 0 units 03/24/18 11:30 03/25/18 08:21 Humulin R Low SC 1 units ACHS [facility] Administration Protocol Labetalol HCl 10 mg 03/15/18 03:08 05/13/18 00:52 Trandate IV 2 ml Q4 PRN Administration Blood Pressure 220/110 & above Lactulose 30 gm 03/24/18 09:30 03/25/18 09:57 Enulose PO 30 gm Q4H [facility] Administration Levothyroxine Sodium 75 mcg 03/17/18 09:51 03/25/18 05:00 Synthroid PO 75 mcg 0600 [facility] Administration Ondansetron HCl 4 mg 03/14/18 23:32 03/15/18 00:14 Zofran Inj IVP 4 mg Q6H PRN Administration Nausea/Vomiting Pantoprazole Sodium 40 mg 03/18/18 10:00 03/24/18 09:50 Protonix Inj IVP 40 mg DAILY [facility] Administration Rifaximin 550 mg 03/21/18 10:00 03/25/18 09:58 Xifaxan PO 550 mg BID [facility] Administration Protocol Sucralfate 1 gm 03/20/18 16:00 03/25/18 05:00 Carafate Oral Susp PO 1 gm 0600,1600 [facility] Administration - Patient Studies Lab Studies: Microbiology Studies 03/23/18 22:30 Urine Culture - Final Urine,Serna No Growth (<1,000 CFU/ML) 03/23/18 13:45 Blood Culture - Preliminary Blood NO GROWTH AFTER 24 HOURS 03/24/18 10:22 C. difficile Antigen & Toxin A,B (M - Final Stool Lab Studies 03/25/18 03/25/18 03/25/18 Range/Units 07:01 07:01 07:01 WBC 14.9 H D (4.5-11.0) 10^3/ul RBC 3.75 (3.5-6.1) 10^6/uL Hgb 10.9 L (14.0-18.0) g/dL Hct 33.5 L (42.0-52.0) % MCV 89.3 (80.0-105.0) fl MCH 29.1 (25.0-35.0) pg MCHC 32.5 (31.0-37.0) g/dl RDW 20.1 H (11.5-14.5) % Plt Count 65 L (120.0-450.0) 10^3/uL MPV 10.4 (7.0-11.0) fl Gran % 92.4 H (50.0-68.0) % Lymph % (Auto) 2.8 L (22.0-35.0) % [place] % (Auto) 4.7 (1.0-6.0) % Eos % (Auto) 0.0 L (1.5-5.0) % Baso % (Auto) 0.1 (0.0-3.0) % Gran # 13.81 H (1.4-6.5) Lymph # (Auto) 0.4 L (1.2-3.4) [place] # (Auto) 0.7 H (0.1-0.6) Eos # (Auto) 0.0 (0.0-0.7) Baso # (Auto) 0.01 (0.0-2.0) K/mm3 PT 29.8 H (9.4-12.5) SECONDS INR 2.54 H (0.93-1.08) APTT 53.9 H (25.1-36.5) Seconds Sodium 147 (132-148) mmol/L Potassium 4.2 (3.6-5.0) mmol/L Chloride 116 H (98-107) mmol/L Carbon Dioxide 17 L (21-33) mmol/L Anion Gap 19 (10-20) BUN 43 H (7-21) mg/dL Creatinine 2.9 H (0.8-1.5) mg/dl Est GFR ( Amer) 27 Est GFR (Non-Af Amer) 22 POC Glucose (mg/dL) (65-110) mg/dL Random Glucose 194 H (70-110) mg/dL Calcium 6.6 L* (8.4-10.5) mg/dL Phosphorus 6.7 H (2.5-4.5) mg/dL Magnesium 1.7 (1.7-2.2) mg/dL Total Bilirubin 17.1 H (0.2-1.3) mg/dL AST 145 H D (17-59) U/L ALT 51 (7-56) U/L Alkaline Phosphatase 160 H (38-126) U/L Ammonia (9-33) umol/L Total Protein 5.5 L (5.8-8.3) g/dL Albumin 1.9 L (3.0-4.8) g/dL Globulin 3.6 gm/dL Albumin/Globulin Ratio 0.5 L (1.1-1.8) 03/25/18 03/24/18 03/24/18 Range/Units 07:01 21:19 16:01 WBC (4.5-11.0) 10^3/ul RBC (3.5-6.1) 10^6/uL Hgb (14.0-18.0) g/dL Hct (42.0-52.0) % MCV (80.0-105.0) fl MCH (25.0-35.0) pg MCHC (31.0-37.0) g/dl RDW (11.5-14.5) % Plt Count (120.0-450.0) 10^3/uL MPV (7.0-11.0) fl Gran % (50.0-68.0) % Lymph % (Auto) (22.0-35.0) % [place] % (Auto) (1.0-6.0) % Eos % (Auto) (1.5-5.0) % Baso % (Auto) (0.0-3.0) % Gran # (1.4-6.5) Lymph # (Auto) (1.2-3.4) [place] # (Auto) (0.1-0.6) Eos # (Auto) (0.0-0.7) Baso # (Auto) (0.0-2.0) K/mm3 PT (9.4-12.5) SECONDS INR (0.93-1.08) APTT (25.1-36.5) Seconds Sodium (132-148) mmol/L Potassium (3.6-5.0) mmol/L Chloride (98-107) mmol/L Carbon Dioxide (21-33) mmol/L Anion Gap (10-20) BUN (7-21) mg/dL Creatinine (0.8-1.5) mg/dl Est GFR ( Amer) Est GFR (Non-Af Amer) POC Glucose (mg/dL) 191 H 159 H (65-110) mg/dL Random Glucose (70-110) mg/dL Calcium (8.4-10.5) mg/dL Phosphorus (2.5-4.5) mg/dL Magnesium (1.7-2.2) mg/dL Total Bilirubin (0.2-1.3) mg/dL AST (17-59) U/L ALT (7-56) U/L Alkaline Phosphatase (38-126) U/L Ammonia 105 H (9-33) umol/L Total Protein (5.8-8.3) g/dL Albumin (3.0-4.8) g/dL Globulin gm/dL Albumin/Globulin Ratio (1.1-1.8) 05//18 Range/Units 11:18 WBC (4.5-11.0) 10^3/ul RBC (3.5-6.1) 10^6/uL Hgb (14.0-18.0) g/dL Hct (42.0-52.0) % MCV (80.0-105.0) fl MCH (25.0-35.0) pg MCHC (31.0-37.0) g/dl RDW (11.5-14.5) % Plt Count (120.0-450.0) 10^3/uL MPV (7.0-11.0) fl Gran % (50.0-68.0) % Lymph % (Auto) (22.0-35.0) % [place] % (Auto) (1.0-6.0) % Eos % (Auto) (1.5-5.0) % Baso % (Auto) (0.0-3.0) % Gran # (1.4-6.5) Lymph # (Auto) (1.2-3.4) [place] # (Auto) (0.1-0.6) Eos # (Auto) (0.0-0.7) Baso # (Auto) (0.0-2.0) K/mm3 PT (9.4-12.5) SECONDS INR (0.93-1.08) APTT (25.1-36.5) Seconds Sodium (132-148) mmol/L Potassium (3.6-5.0) mmol/L Chloride (98-107) mmol/L Carbon Dioxide (21-33) mmol/L Anion Gap (10-20) BUN (7-21) mg/dL Creatinine (0.8-1.5) mg/dl Est GFR ( Amer) Est GFR (Non-Af Amer) POC Glucose (mg/dL) 136 H (65-110) mg/dL Random Glucose (70-110) mg/dL Calcium (8.4-10.5) mg/dL Phosphorus (2.5-4.5) mg/dL Magnesium (1.7-2.2) mg/dL Total Bilirubin (0.2-1.3) mg/dL AST (17-59) U/L ALT (7-56) U/L Alkaline Phosphatase (38-126) U/L Ammonia (9-33) umol/L Total Protein (5.8-8.3) g/dL Albumin (3.0-4.8) g/dL Globulin gm/dL Albumin/Globulin Ratio (1.1-1.8) Laboratory Results - last 24 hr 03/24/18 03/24/18 03/24/18 11:18 16:01 21:19 WBC RBC Hgb Hct MCV MCH MCHC RDW Plt Count MPV Gran % Lymph % (Auto) [place] % (Auto) Eos % (Auto) Baso % (Auto) Gran # Lymph # (Auto) [place] # (Auto) Eos # (Auto) Baso # (Auto) PT INR APTT Sodium Potassium Chloride Carbon Dioxide Anion Gap BUN Creatinine Est GFR ( Amer) Est GFR (Non-Af Amer) POC Glucose (mg/dL) 136 H 159 H 191 H Random Glucose Calcium Phosphorus Magnesium Total Bilirubin AST ALT Alkaline Phosphatase Ammonia Total Protein Albumin Globulin Albumin/Globulin Ratio 03/25/18 03/25/18 03/25/18 07:01 07:01 07:01 WBC 14.9 H D RBC 3.75 Hgb 10.9 L Hct 33.5 L MCV 89.3 MCH 29.1 MCHC 32.5 RDW 20.1 H Plt Count 65 L MPV 10.4 Gran % 92.4 H Lymph % (Auto) 2.8 L [place] % (Auto) 4.7 Eos % (Auto) 0.0 L Baso % (Auto) 0.1 Gran # 13.81 H Lymph # (Auto) 0.4 L [place] # (Auto) 0.7 H Eos # (Auto) 0.0 Baso # (Auto) 0.01 PT 29.8 H INR 2.54 H APTT 53.9 H Sodium Potassium Chloride Carbon Dioxide Anion Gap BUN Creatinine Est GFR ( Amer) Est GFR (Non-Af Amer) POC Glucose (mg/dL) Random Glucose Calcium Phosphorus Magnesium Total Bilirubin AST ALT Alkaline Phosphatase Ammonia 105 H Total Protein Albumin Globulin Albumin/Globulin Ratio 03/25/18 07:01 WBC RBC Hgb Hct MCV MCH MCHC RDW Plt Count MPV Gran % Lymph % (Auto) [place] % (Auto) Eos % (Auto) Baso % (Auto) Gran # Lymph # (Auto) [place] # (Auto) Eos # (Auto) Baso # (Auto) PT INR APTT Sodium 147 Potassium 4.2 Chloride 116 H Carbon Dioxide 17 L Anion Gap 19 BUN 43 H Creatinine 2.9 H Est GFR ( Amer) 27 Est GFR (Non-Af Amer) 22 POC Glucose (mg/dL) Random Glucose 194 H Calcium 6.6 L* Phosphorus 6.7 H Magnesium 1.7 Total Bilirubin 17.1 H AST 145 H D ALT 51 Alkaline Phosphatase 160 H Ammonia Total Protein 5.5 L Albumin 1.9 L Globulin 3.6 Albumin/Globulin Ratio 0.5 L Critical Care Progress Note - Nutrition Nutrition: Nutrition Category Date Time Status NPO Diet [DIET] Diets 03/15/18 Breakfast Ordered Assessment/Plan - Assessment and Plan (Free Text) Plan: Patient seen and examined on rounds with resident, agree with note with following additions/exceptions: Patient is 62yo male with PMhx of Hep C, Cirrhosis, ESLD, Cachexia, malnutrition , poor compliance, presented with catastrophic L IPH, with IVH, s/p cardiac arrest, s/p ROSC. Currently intubated, off sedation, does not overbreath the ventilator, NO gag reflex, no response to noxious stimuli, GCS 3 Awaiting brain protocol, brain flow NM study. In shock on dual pressors. Septic Shock ICH Hep C Cirrhosis Liver Failure Hepatic encephalopathy Recommend: - cont with vent support, low tidal vol ventilation - cont with broad spectrum abx as per ID - follow up cultures - BP control - HH monitoring - Rifaximin, lactulose - IVF hydration - Brain flow study - brain protocol - neurology follow up - follow up EEG - palliative care follow up - GI ppx - DVT ppx, SCDs - Monitor in MICU Overall prognosis extremely poor Critical care time 40 minutes
[2018-03-25] MEDS ORDERED: Sodium Chloride 0.9% 1,000 ML IV SCH ×2 (10:45)
--- NOTE | 2018-03-25 10:56 | CP.PCM.PN ---
Subjective - Date & Time of Evaluation Date of Evaluation: 03/25/18 Time of Evaluation: 08:55 - Subjective Subjective: Continues to be on the ventilator, unresponsive, still with hypothermia. Still on vasopressor support. Objective - Vital Signs/Intake and Output Vital Signs (last 24 hours): Temp Pulse Resp BP Pulse Ox 97.7 F 94 H 21 137/67 98 03/25/18 04:30 03/25/18 04:30 03/24/18 15:59 03/25/18 04:30 03/25/18 04:30 Intake and Output: 03/24/18 03/25/18 18:59 06:59 Intake Total 3338 773 Output Total 50 Balance 3288 773 - Medications Medications: Current Medications Bacitracin (Bacitracin) 1 ea TOP BID PRN PRN Reason: ARM BLISTERS Last Admin: 03/23/18 14:10 Dose: 1 ea Hydrocortisone Sodium Succinate (Solu-Cortef) 80 mg IVP Q8 [facility] Last Admin: 03/25/18 05:00 Dose: 80 mg Sodium Chloride (Hypertonic Saline 3%) 500 mls @ 30 mls/hr IV .[id number] [facility] Last Admin: 03/15/18 10:50 Dose: 30 mls/hr Levetiracetam (Keppra 500mg Ivpb) 500 mg in 100 mls @ 400 mls/hr IV Q12 [facility] Last Admin: 03/24/18 21:14 Dose: 400 mls/hr Multivitamins/Vitamin C 10 ml/ (Dextrose) 1,010 mls @ 75 mls/hr IV .[id number] [facility] Last Admin: 03/24/18 17:26 Dose: 75 mls/hr NOREPINEPHRINE BIT/0.9 % NACL (Levophed 4 Mg/ 250 Ml Ns Premixed) 4 mg in 250 mls @ 15 mls/hr IV .[id number] PRN; Protocol; 4 MCG/MIN PRN Reason: TITRATE PER MD ORDER Last Titration: 03/25/18 05:03 Dose: 13 mcg/min, 48.75 mls/hr Vancomycin HCl (Vancomycin 1gm) 1 gm in 250 mls @ 167 mls/hr IVPB Q12H [facility] PRN Reason: Protocol Last Admin: 03/24/18 22:29 Dose: 167 mls/hr Phenylephrine HCl 40 mg/ (Sodium Chloride) 254 mls @ 38.1 mls/hr IV .Q6H40M PRN ; Protocol; 100 MCG/MIN PRN Reason: TITRATE PER MD ORDER Last Titration: 03/24/18 22:34 Dose: 80 mcg/min, 30.48 mls/hr Meropenem (Merrem Iv 1 Gm Premix) 50 mls @ 100 mls/hr IVPB Q12 [facility] PRN Reason: Protocol Last Admin: 03/24/18 21:13 Dose: 100 mls/hr Insulin Detemir (Levemir) 20 unit SC Q12H [facility] Last Admin: 03/24/18 21:00 Dose: 20 unit Insulin Human Regular (Humulin R Low) 0 units SC ACHS [facility] PRN Reason: Protocol Last Admin: 03/24/18 21:51 Dose: Not Given Labetalol HCl (Trandate) 10 mg IV Q4 PRN PRN Reason: Blood Pressure 220/110 & above Last Admin: 03/23/18 00:52 Dose: 2 ml Lactulose (Enulose) 30 gm PO Q4H [facility] Last Admin: 03/25/18 04:56 Dose: 30 gm Levothyroxine Sodium (Synthroid) 75 mcg PO 0600 [facility] Last Admin: 03/25/18 05:00 Dose: 75 mcg Ondansetron HCl (Zofran Inj) 4 mg IVP Q6H PRN PRN Reason: Nausea/Vomiting Last Admin: 03/15/18 00:14 Dose: 4 mg Pantoprazole Sodium (Protonix Inj) 40 mg IVP DAILY [facility] Last Admin: 03/24/18 09:50 Dose: 40 mg Rifaximin (Xifaxan) 550 mg PO BID [facility] PRN Reason: Protocol Last Admin: 03/24/18 17:18 Dose: 550 mg Sucralfate (Carafate Oral Susp) 1 gm PO 0600,1600 [facility] Last Admin: 03/25/18 05:00 Dose: 1 gm - Labs Labs: 03/24/18 08:20 03/24/18 08:20 PT 27.0 SECONDS (9.4-12.5) H 03/24/18 08:20 INR 2.31 (0.93-1.08) H 03/24/18 08:20 APTT 46.5 Seconds (25.1-36.5) H 03/24/18 08:20 - Constitutional Appears: Chronically Ill, Other (intubated, unresponsive) - ENT Exam Additional comments: ET tube in place - Respiratory Exam Respiratory Exam: Decreased Breath Sounds, Rales (scattered) - Cardiovascular Exam Cardiovascular Exam: +S1, +S2 - GI/Abdominal Exam GI & Abdominal Exam: Soft. absent: Tenderness - Extremities Exam Additional comments: right arm PICC line in place Assessment and Plan - Assessment and Plan (Free Text) Plan: Assessment Systemic inflammatory response syndrome with hypotension / shock needing vasopressor support and ventilator-dependent respiratory failure due to encephalopathy from intracranial hemorrhage and hepatic encephalopathy, R/O severe sepsis from HCAP chronic hepatitis C with liver cirrhosis with history of variceal bleeding and banding end stage liver disease DM Plan continue intermittent Vancomycin and Merrem day 3 pending blood, urine cx; PCT is 1.82; sputum cx growing E. coli - complete 4-7 days of therapy stool for C. diff. is negative overall prognosis is poor / grave
--- NOTE | 2018-03-25 13:45 | NM ---
PROCEDURE: Vein scan, flow study HISTORY: Eval brain COMPARISON: 03/23/2018 CT head TECHNIQUE: 19.4 mCi technetium 99 M pertechnetate administered intravenously. FINDINGS: Technical quality of the study: Adequate based on flow in the carotid arteries.Pitt documentation of flow above the tentorium: Flow is not documented. IMPRESSION: Findings on the current study which is technically acceptable consistent with clinically suspected brain .
--- NOTE | 2018-03-25 14:38 | CP.PCM.PN ---
Subjective - Date & Time of Evaluation Date of Evaluation: 03/25/18 Time of Evaluation: 15:00 - Subjective Subjective: no changes in status Objective - Vital Signs/Intake and Output Vital Signs (last 24 hours): Temp Pulse Resp BP Pulse Ox 95.4 F L 87 21 112/59 L 97 03/25/18 11:30 03/25/18 11:30 03/24/18 15:59 03/25/18 11:30 03/25/18 11:30 Intake and Output: 03/25/18 03/25/18 06:59 18:59 Intake Total 2153 255 Output Total 50 Balance 2103 255 - Medications Medications: Current Medications Bacitracin (Bacitracin) 1 ea TOP BID PRN PRN Reason: ARM BLISTERS Last Admin: 03/23/18 14:10 Dose: 1 ea Hydrocortisone Sodium Succinate (Solu-Cortef) 80 mg IVP Q8 [facility] Last Admin: 03/25/18 05:00 Dose: 80 mg Sodium Chloride (Hypertonic Saline 3%) 500 mls @ 30 mls/hr IV .[id number] [facility] Last Admin: 03/15/18 10:50 Dose: 30 mls/hr Levetiracetam (Keppra 500mg Ivpb) 500 mg in 100 mls @ 400 mls/hr IV Q12 [facility] Last Admin: 03/25/18 10:00 Dose: 400 mls/hr Multivitamins/Vitamin C 10 ml/ (Dextrose) 1,010 mls @ 75 mls/hr IV .[id number] [facility] Last Admin: 03/25/18 10:01 Dose: 75 mls/hr NOREPINEPHRINE BIT/0.9 % NACL (Levophed 4 Mg/ 250 Ml Ns Premixed) 4 mg in 250 mls @ 15 mls/hr IV .[id number] PRN; Protocol; 4 MCG/MIN PRN Reason: TITRATE PER MD ORDER Last Admin: 03/25/18 09:11 Dose: 8 mcg/min, 30 mls/hr Vancomycin HCl (Vancomycin 1gm) 1 gm in 250 mls @ 167 mls/hr IVPB Q12H [facility] PRN Reason: Protocol Last Admin: 03/25/18 09:58 Dose: 167 mls/hr Phenylephrine HCl 40 mg/ (Sodium Chloride) 254 mls @ 38.1 mls/hr IV .Q6H40M PRN ; Protocol; 100 MCG/MIN PRN Reason: TITRATE PER MD ORDER Last Admin: 03/25/18 09:10 Dose: 40 mcg/min, 15.24 mls/hr Meropenem (Merrem Iv 1 Gm Premix) 50 mls @ 100 mls/hr IVPB Q12 [facility] PRN Reason: Protocol Last Admin: 03/25/18 09:59 Dose: 100 mls/hr Insulin Detemir (Levemir) 20 unit SC Q12H [facility] Last Admin: 03/25/18 08:20 Dose: 20 unit Insulin Human Regular (Humulin R Low) 0 units SC ACHS [facility] PRN Reason: Protocol Last Admin: 03/25/18 08:21 Dose: 1 units Labetalol HCl (Trandate) 10 mg IV Q4 PRN PRN Reason: Blood Pressure 220/110 & above Last Admin: 03/23/18 00:52 Dose: 2 ml Lactulose (Enulose) 30 gm PO Q4H [facility] Last Admin: 03/25/18 09:57 Dose: 30 gm Levothyroxine Sodium (Synthroid) 75 mcg PO 0600 [facility] Last Admin: 03/25/18 05:00 Dose: 75 mcg Ondansetron HCl (Zofran Inj) 4 mg IVP Q6H PRN PRN Reason: Nausea/Vomiting Last Admin: 03/15/18 00:14 Dose: 4 mg Pantoprazole Sodium (Protonix Inj) 40 mg IVP DAILY [facility] Last Admin: 03/24/18 09:50 Dose: 40 mg Rifaximin (Xifaxan) 550 mg PO BID [facility] PRN Reason: Protocol Last Admin: 03/25/18 09:58 Dose: 550 mg Sucralfate (Carafate Oral Susp) 1 gm PO 0600,1600 [facility] Last Admin: 03/25/18 05:00 Dose: 1 gm - Labs Labs: 03/25/18 07:01 03/25/18 07:01 PT 29.8 SECONDS (9.4-12.5) H 03/25/18 07:01 INR 2.54 (0.93-1.08) H 03/25/18 07:01 APTT 53.9 Seconds (25.1-36.5) H 03/25/18 07:01 - Constitutional Appears: Chronically Ill - Eye Exam Eye Exam: Scleral icterus - ENT Exam ENT Exam: Mucous Membranes Moist, Normal Oropharynx - Respiratory Exam Additional comments: intubated - Cardiovascular Exam Cardiovascular Exam: +S1, +S2 - GI/Abdominal Exam GI & Abdominal Exam: Distended - Skin Skin Exam: Dry Additional comments: jaundice Assessment and Plan - Assessment and Plan (Free Text) Assessment: 62 year old male with history of ESLD, jaundice who was admitted with sepsis, hemorrhagic stroke, cardiac arrest,WANDA Family at beside. Neurology at bedside. Rohit flow studies confirm brain . Family made aware of these findings. Family in agreement to withdraw life support. Terminal extubation process explained. signed consent for terminal extubation/DNR/DNI. Psychosocial support givne Time spent iwht family in goals of care and end of life discussion, 20 minutes Plan: DNR/DNI Terminal extubation Goals of care
--- NOTE | 2018-03-25 14:57 | CP.PCM.PRO ---
Pronouncement of Note - Clinical Findings Physical Exam: No Response Verbal/Painful Stimuli, Absent Peripheral Pulses{ Carotid & Femoral}, Absent Heart & Breath Sounds, No Pupillary Light Reflex, No Corneal Reflex, Pupils Fixed & Dilated, Absence of Vital Signs - Pronouncement Time Time of Pronouncement of : 14:48 - Notifications Pronouncement Notifications: Family Notified, Atending Notified Protective Services Case Worker Notified: No - Autopsy Autopsy Requested: No [place]: [id number]
--- NOTE | 2018-03-25 15:04 | CP.PCM.DIS ---
<LeonoraJacinto - Last Filed: 03/25/18 15:25> Provider - Provider Date of Admission: 03/11/18 20:39 Attending physician: Chetna Flores MD Primary care physician: Valdo Chen MD Consults: Podiatry: Arloro Neuro: Michael/Kanu ID: Jackpot Surg: Liriano ENT: Bastianelli GI: Zelinsk GI: Borges IR: Marina Neuro Surg: Ratzker Palliative: Paramonte Time Spent in preparation of Discharge (in minutes): 40 Hospital Course - Lab Results Lab Results: Micro Results 03/23/18 13:45 Blood Blood Culture - Preliminary NO GROWTH AFTER 48 HOURS 03/23/18 22:30 Urine,Serna Urine Culture - Final No Growth (<1,000 CFU/ML) 03/24/18 10:22 Stool C. difficile Antigen & Toxin A,B (M - Final 03/20/18 07:47 Sputum Gram Stain - Final 03/20/18 07:47 Sputum Sputum Culture - Final Escherichia Coli 03/15/18 09:25 Naris MRSA Culture (Admit) - Final MRSA NOT DETECTED Most Recent Lab Values WBC 14.9 10^3/ul (4.5-11.0) H D 03/25/18 07:01 RBC 3.75 10^6/uL (3.5-6.1) 03/25/18 07:01 Hgb 10.9 g/dL (14.0-18.0) L 03/25/18 07:01 Hct 33.5 % (42.0-52.0) L 03/25/18 07:01 MCV 89.3 fl (80.0-105.0) 03/25/18 07:01 MCH 29.1 pg (25.0-35.0) 03/25/18 07:01 MCHC 32.5 g/dl (31.0-37.0) 03/25/18 07:01 RDW 20.1 % (11.5-14.5) H 03/25/18 07:01 Plt Count 65 10^3/uL (120.0-450.0) L 03/25/18 07:01 Manual Plt Count 48 K/mm3 (120-450) L* 03/16/18 06:20 MPV 10.4 fl (7.0-11.0) 03/25/18 07:01 Gran % 92.4 % (50.0-68.0) H 03/25/18 07:01 Lymph % (Auto) 2.8 % (22.0-35.0) L 03/25/18 07:01 [place] % (Auto) 4.7 % (1.0-6.0) 03/25/18 07:01 Eos % (Auto) 0.0 % (1.5-5.0) L 03/25/18 07:01 Baso % (Auto) 0.1 % (0.0-3.0) 03/25/18 07:01 Gran # 13.81 (1.4-6.5) H 03/25/18 07:01 Lymph # (Auto) 0.4 (1.2-3.4) L 03/25/18 07:01 [place] # (Auto) 0.7 (0.1-0.6) H 03/25/18 07:01 Eos # (Auto) 0.0 (0.0-0.7) 03/25/18 07:01 Baso # (Auto) 0.01 K/mm3 (0.0-2.0) 03/25/18 07:01 Neutrophils % (Manual) 82 % (50.0-70.0) H 03/23/18 06:00 Band Neutrophils % 8 % (0-2) H 03/23/18 06:00 Lymphocytes % (Manual) 5 % (22.0-35.0) L 03/23/18 06:00 Atypical Lymphs % 2 % (0.0-0.0) H 03/23/18 06:00 Monocytes % (Manual) 3 % (1.0-6.0) 03/23/18 06:00 Platelet Evaluation Low (NORMAL) 03/17/18 06:40 ESR 16 mm/hr (0.00-15.0) H 03/15/18 03:30 PT 29.8 SECONDS (9.4-12.5) H 03/25/18 07:01 INR 2.54 (0.93-1.08) H 03/25/18 07:01 APTT 53.9 Seconds (25.1-36.5) H 03/25/18 07:01 pCO2 37 mm/Hg (35-45) 03/24/18 08:00 pO2 75.0 mm/Hg (80-100) L 03/24/18 08:00 HCO3 17.8 mmol/L (21-28) L 03/24/18 08:00 ABG pH 7.29 (7.35-7.45) L 03/24/18 08:00 ABG Total CO2 18.9 mmol.L (22-28) L 03/24/18 08:00 ABG O2 Saturation 96.9 % (95-98) 03/24/18 08:00 ABG O2 Content 14.5 ML/dl (15-23) L 03/24/18 08:00 ABG Base Excess -8.1 mmol/L (-2.0-3.0) L 03/24/18 08:00 ABG Hemoglobin 11.0 g/dL (11.7-17.4) L 03/24/18 08:00 ABG Carboxyhemoglobin 2.7 % (0.5-1.5) H 03/24/18 08:00 POC ABG HHb (Measured) 3.0 % (0-5) 03/24/18 08:00 ABG Methemoglobin 1.0 % (0.0-3.0) 03/24/18 08:00 ABG O2 Capacity 15.0 mL/dl (16-24) L 03/24/18 08:00 ABG Potassium 3.1 mmol/L (3.6-5.2) L 03/23/18 03:30 VBG pH 7.42 (7.32-7.43) 03/23/18 13:45 VBG pCO2 34.0 (40-60) L 03/23/18 13:45 VBG HCO3 22.1 mmol/l (21-28) 03/23/18 13:45 VBG Total CO2 23.1 mmol.L (22-28) 03/23/18 13:45 VBG O2 Sat (Calc) 99.1 % (40-65) H 03/23/18 13:45 VBG Base Excess -1.7 mmol/L (0.0-2.0) L 03/23/18 13:45 VBG Potassium 3.0 mmol/L (3.6-5.2) L 03/23/18 13:45 Hgb O2 Saturation 93.3 % (95.0-98.0) L 03/24/18 08:00 Sodium 137.0 mmol/L (132-148) 03/23/18 13:45 Chloride 110.0 mmol/L (98-107) H 03/23/18 13:45 Glucose 420 mg/dl (75-110) H* D 03/23/18 13:45 Lactate 1.6 mmol/L (0.7-2.1) 03/23/18 13:45 FiO2 50.0 % 03/24/18 08:00 Sodium 147 mmol/L (132-148) 03/25/18 07:01 Potassium 4.2 mmol/L (3.6-5.0) 03/25/18 07:01 Chloride 116 mmol/L (98-107) H 03/25/18 07:01 Carbon Dioxide 17 mmol/L (21-33) L 03/25/18 07:01 Anion Gap 19 (10-20) 03/25/18 07:01 BUN 43 mg/dL (7-21) H 03/25/18 07:01 Creatinine 2.9 mg/dl (0.8-1.5) H 03/25/18 07:01 Est GFR ( Amer) 27 03/25/18 07:01 Est GFR (Non-Af Amer) 22 03/25/18 07:01 POC Glucose (mg/dL) 191 mg/dL (65-110) H 03/24/18 21:19 Random Glucose 194 mg/dL (70-110) H 03/25/18 07:01 Serum Osmolality 332 mosm/kg (272-300) H 03/19/18 07:44 Lactic Acid 2.0 mmol/L (0.7-2.1) 03/12/18 05:30 Calcium 6.6 mg/dL (8.4-10.5) L* 03/25/18 07:01 Phosphorus 6.7 mg/dL (2.5-4.5) H 03/25/18 07:01 Magnesium 1.7 mg/dL (1.7-2.2) 03/25/18 07:01 Total Bilirubin 17.1 mg/dL (0.2-1.3) H 03/25/18 07:01 AST 145 U/L (17-59) H D 03/25/18 07:01 ALT 51 U/L (7-56) 03/25/18 07:01 Alkaline Phosphatase 160 U/L (38-126) H 03/25/18 07:01 Ammonia 105 umol/L (9-33) H 03/25/18 07:01 Lactate Dehydrogenase 1159 U/L (333-699) H 03/23/18 02:30 Total Creatine Kinase 46 U/L (35-230) 03/23/18 02:30 Troponin I < 0.01 ng/mL 03/23/18 02:30 C-React Prot High Sens > 15.00 mg/L (1.00-3.00) H 03/15/18 03:30 NT-Pro-B Natriuret Pep 197 pg/mL (0-450) 03/15/18 03:30 Total Protein 5.5 g/dL (5.8-8.3) L 03/25/18 07:01 Albumin 1.9 g/dL (3.0-4.8) L 03/25/18 07:01 Globulin 3.6 gm/dL 03/25/18 07:01 Albumin/Globulin Ratio 0.5 (1.1-1.8) L 03/25/18 07:01 Triglycerides 100 mg/dL (35-160) 03/15/18 03:30 Cholesterol 254 mg/dL (130-200) H 03/15/18 03:30 LDL Cholesterol Direct 118 mg/dL (0-129) 03/15/18 03:30 HDL Cholesterol 61 mg/dL (29-60) H 03/15/18 03:30 Lipase 74 U/L (23-300) 03/11/18 21:35 Vitamin B12 > 1000 pg/mL (239-931) H 03/15/18 03:30 Procalcitonin 1.82 NG/ML (0.19-0.49) H 03/23/18 15:00 Free T4 1.13 ng/dL (0.78-2.19) 03/23/18 13:45 Thyroxine (T4) 6.6 ug/dL (5.5-11.0) 03/15/18 03:30 Total T3 0.62 ng/mL (0.97-1.69) L 03/15/18 03:30 TSH 3rd Generation 0.29 mIU/mL (0.46-4.68) L 03/23/18 13:45 Arterial Blood Potassium 3.1 mmol/L (3.6-5.2) L 03/23/18 03:30 Venous Blood Potassium 3.0 mmol/L (3.6-5.2) L 03/23/18 13:45 Urine Color yellow (YELLOW) 03/11/18 20:15 Urine Appearance Sl cloudy (CLEAR) 03/11/18 20:15 Urine pH 8.5 (4.7-8.0) 03/11/18 20:15 Ur Specific [place] 1.010 (1.005-1.035) 03/11/18 20:15 Urine Protein 30 mg/dL (<30 mg/dL) H 03/11/18 20:15 Urine Glucose (UA) 500 mg/dL (NEGATIVE) H 03/11/18 20:15 Urine Ketones Trace mg/dL (NEGATIVE) H 03/11/18 20:15 Urine Blood Negative (NEGATIVE) 03/11/18 20:15 Urine Nitrate Negative (NEGATIVE) 03/11/18 20:15 Urine Bilirubin Negative (NEGATIVE) 03/11/18 20:15 Urine Urobilinogen 2.0 E.U./dL (<1 E.U./dL) H 03/11/18 20:15 Ur Leukocyte Esterase Negative Tank/uL (NEGATIVE) 03/11/18 20:15 Urine RBC 2 - 5 /hpf (0-2) 03/11/18 20:15 Urine WBC 5 - 10 /hpf (0-6) 03/11/18 20:15 Ur Epithelial Cells 6 - 8 /hpf (0-5) 03/11/18 20:15 Urine Opiates Screen Negative (NEGATIVE) 03/11/18 20:15 Urine Methadone Screen Negative (NEGATIVE) 03/11/18 20:15 Ur Barbiturates Screen Negative (NEGATIVE) 03/11/18 20:15 Ur Phencyclidine Scrn Negative (NEGATIVE) 03/11/18 20:15 Ur Amphetamines Screen Negative (NEGATIVE) 03/11/18 20:15 U Benzodiazepines Scrn Negative (NEGATIVE) 03/11/18 20:15 U Oth Cocaine Metabols Negative (NEGATIVE) 03/11/18 20:15 U Cannabinoids Screen Negative (NEGATIVE) 03/11/18 20:15 Alcohol, Quantitative < 10 mg/dL (0-10) 03/11/18 18:45 Blood Type O POSITIVE 03/15/18 03:30 Antibody Screen Negative 03/15/18 03:30 BBK History Checked Patient has bt 03/15/18 03:30 - Hospital Course Hospital Course: 62 year old male with PMH Hep C, cirrhosis, bilateral inguinal hernias, IDDM, brought into the emergency department by EMS for altered mental status. Patient has been seen multiple times for same presentation. As per EMS, no fever or vomiting. HPI and ROS limited due to patient's altered mental status. At this time patient is non-verbal but is able to follow commands. History obtained from previous charting. Patient was admitted for hepatic encephalopathy on 03/11. Patient was being treated with lactulose and rifaximin. His mental status continued to improved until 03/15. On 03/15 CODE STROKE was called because patient was not responding to any stimuli. He was found to have CVA and SAH diagnosed on CT head. He was intubated and taken to ICU. Patient continued to be treated in ICU. The family was adamant about all measures being taken to preserve the patient. Family initially wanted Trach/PEG but then decided against it. Palliaive care was consulted and spoke with family. Family was unsure about terminal extubation and wanted more testing to be done. Patient clinical condition stayed the course until 03/23 when a CODE BLUE was called. CT head done a few hours later re-demonstrated is a large hematoma which occupies a portion of the left cerebral hemisphere extending from the left posterior temporal region into the left basal ganglia parietal and posterior frontal regions to the vertex. bilateral subarachnoid hemorrhage. wide margin of low- attenuation edema and or necrotic brain tissue. surrounding mass effect with overlying sulcal effacement and compression of left lateral ventricle with the shifted across midline. apparent uncal herniation. suspected tonsillar herniation. diffuse cerebral edema with loss of the cortical medullary junction (see full report). Family knew patient prognosis was poor prior to this event. At that time, family was requesting EEG still. EEG was done on 03/24 and did not show any meaningful activity. The next day (03/25), ICU ordered cerebral blow flow study to determine the possibility of suspected brain . Brain flow study confirmed brain . Family was made aware of these findings and they were in agreement to withdraw life support. Patient terminally extubated and signed DNR/DNI. Patient at 14:48. - Date & Time of H&P Date of H&P: 03/11/18 Discharge Exam - Additional Findings Additional findings: Patient Discharge Plan - Discharge Medications Prescriptions: Furosemide [Lasix] 40 mg PO DAILY #30 tablet Lactulose [Enulose] 30 gm PO TID #90 udc Pantoprazole [Protonix EC Tab] 40 mg PO 0600 #30 ect rifAXIMin [Xifaxan] 550 mg PO BID #60 tab Spironolactone [Aldactone] 100 mg PO DAILY #30 tablet - Follow Up Plan Condition: Disposition: WITH WITHOUT AUTOPSY Ref[place] [facility] [place] [facility] [place] [facility] [Outside] [facility] [place] [Outside] Valdo Chen MD [Primary Care Provider] - Jair Fernández MD [Staff Provider] - <Jona Leavitt - Last Filed: 03/25/18 15:46> Provider - Provider Date of Admission: 03/11/18 20:39 Attending physician: Chetna Flores MD Primary care physician: Valdo Chen MD Hospital Course - Lab Results Lab Results: Micro Results 03/23/18 13:45 Blood Blood Culture - Preliminary NO GROWTH AFTER 48 HOURS 03/23/18 22:30 Urine,Serna Urine Culture - Final No Growth (<1,000 CFU/ML) 03/24/18 10:22 Stool C. difficile Antigen & Toxin A,B (M - Final 03/20/18 07:47 Sputum Gram Stain - Final 03/20/18 07:47 Sputum Sputum Culture - Final Escherichia Coli 03/15/18 09:25 Naris MRSA Culture (Admit) - Final MRSA NOT DETECTED Most Recent Lab Values WBC 14.9 10^3/ul (4.5-11.0) H D 03/25/18 07:01 RBC 3.75 10^6/uL (3.5-6.1) 03/25/18 07:01 Hgb 10.9 g/dL (14.0-18.0) L 03/25/18 07:01 Hct 33.5 % (42.0-52.0) L 03/25/18 07:01 MCV 89.3 fl (80.0-105.0) 03/25/18 07:01 MCH 29.1 pg (25.0-35.0) 03/25/18 07:01 MCHC 32.5 g/dl (31.0-37.0) 03/25/18 07:01 RDW 20.1 % (11.5-14.5) H 03/25/18 07:01 Plt Count 65 10^3/uL (120.0-450.0) L 03/25/18 07:01 Manual Plt Count 48 K/mm3 (120-450) L* 03/16/18 06:20 MPV 10.4 fl (7.0-11.0) 03/25/18 07:01 Gran % 92.4 % (50.0-68.0) H 03/25/18 07:01 Lymph % (Auto) 2.8 % (22.0-35.0) L 03/25/18 07:01 [place] % (Auto) 4.7 % (1.0-6.0) 03/25/18 07:01 Eos % (Auto) 0.0 % (1.5-5.0) L 03/25/18 07:01 Baso % (Auto) 0.1 % (0.0-3.0) 03/25/18 07:01 Gran # 13.81 (1.4-6.5) H 03/25/18 07:01 Lymph # (Auto) 0.4 (1.2-3.4) L 03/25/18 07:01 [place] # (Auto) 0.7 (0.1-0.6) H 03/25/18 07:01 Eos # (Auto) 0.0 (0.0-0.7) 03/25/18 07:01 Baso # (Auto) 0.01 K/mm3 (0.0-2.0) 03/25/18 07:01 Neutrophils % (Manual) 82 % (50.0-70.0) H 03/23/18 06:00 Band Neutrophils % 8 % (0-2) H 03/23/18 06:00 Lymphocytes % (Manual) 5 % (22.0-35.0) L 03/23/18 06:00 Atypical Lymphs % 2 % (0.0-0.0) H 03/23/18 06:00 Monocytes % (Manual) 3 % (1.0-6.0) 03/23/18 06:00 Platelet Evaluation Low (NORMAL) 03/17/18 06:40 ESR 16 mm/hr (0.00-15.0) H 03/15/18 03:30 PT 29.8 SECONDS (9.4-12.5) H 03/25/18 07:01 INR 2.54 (0.93-1.08) H 03/25/18 07:01 APTT 53.9 Seconds (25.1-36.5) H 03/25/18 07:01 pCO2 37 mm/Hg (35-45) 03/24/18 08:00 pO2 75.0 mm/Hg (80-100) L 03/24/18 08:00 HCO3 17.8 mmol/L (21-28) L 03/24/18 08:00 ABG pH 7.29 (7.35-7.45) L 03/24/18 08:00 ABG Total CO2 18.9 mmol.L (22-28) L 03/24/18 08:00 ABG O2 Saturation 96.9 % (95-98) 03/24/18 08:00 ABG O2 Content 14.5 ML/dl (15-23) L 03/24/18 08:00 ABG Base Excess -8.1 mmol/L (-2.0-3.0) L 03/24/18 08:00 ABG Hemoglobin 11.0 g/dL (11.7-17.4) L 03/24/18 08:00 ABG Carboxyhemoglobin 2.7 % (0.5-1.5) H 03/24/18 08:00 POC ABG HHb (Measured) 3.0 % (0-5) 03/24/18 08:00 ABG Methemoglobin 1.0 % (0.0-3.0) 03/24/18 08:00 ABG O2 Capacity 15.0 mL/dl (16-24) L 03/24/18 08:00 ABG Potassium 3.1 mmol/L (3.6-5.2) L 03/23/18 03:30 VBG pH 7.42 (7.32-7.43) 03/23/18 13:45 VBG pCO2 34.0 (40-60) L 03/23/18 13:45 VBG HCO3 22.1 mmol/l (21-28) 03/23/18 13:45 VBG Total CO2 23.1 mmol.L (22-28) 03/23/18 13:45 VBG O2 Sat (Calc) 99.1 % (40-65) H 03/23/18 13:45 VBG Base Excess -1.7 mmol/L (0.0-2.0) L 03/23/18 13:45 VBG Potassium 3.0 mmol/L (3.6-5.2) L 03/23/18 13:45 Hgb O2 Saturation 93.3 % (95.0-98.0) L 03/24/18 08:00 Sodium 137.0 mmol/L (132-148) 03/23/18 13:45 Chloride 110.0 mmol/L (98-107) H 03/23/18 13:45 Glucose 420 mg/dl (75-110) H* D 03/23/18 13:45 Lactate 1.6 mmol/L (0.7-2.1) 03/23/18 13:45 FiO2 50.0 % 03/24/18 08:00 Sodium 147 mmol/L (132-148) 03/25/18 07:01 Potassium 4.2 mmol/L (3.6-5.0) 03/25/18 07:01 Chloride 116 mmol/L (98-107) H 03/25/18 07:01 Carbon Dioxide 17 mmol/L (21-33) L 03/25/18 07:01 Anion Gap 19 (10-20) 03/25/18 07:01 BUN 43 mg/dL (7-21) H 03/25/18 07:01 Creatinine 2.9 mg/dl (0.8-1.5) H 03/25/18 07:01 Est GFR ( Amer) 27 03/25/18 07:01 Est GFR (Non-Af Amer) 22 03/25/18 07:01 POC Glucose (mg/dL) 191 mg/dL (65-110) H 03/24/18 21:19 Random Glucose 194 mg/dL (70-110) H 03/25/18 07:01 Serum Osmolality 332 mosm/kg (272-300) H 03/19/18 07:44 Lactic Acid 2.0 mmol/L (0.7-2.1) 03/12/18 05:30 Calcium 6.6 mg/dL (8.4-10.5) L* 03/25/18 07:01 Phosphorus 6.7 mg/dL (2.5-4.5) H 03/25/18 07:01 Magnesium 1.7 mg/dL (1.7-2.2) 03/25/18 07:01 Total Bilirubin 17.1 mg/dL (0.2-1.3) H 03/25/18 07:01 AST 145 U/L (17-59) H D 03/25/18 07:01 ALT 51 U/L (7-56) 03/25/18 07:01 Alkaline Phosphatase 160 U/L (38-126) H 03/25/18 07:01 Ammonia 105 umol/L (9-33) H 03/25/18 07:01 Lactate Dehydrogenase 1159 U/L (333-699) H 03/23/18 02:30 Total Creatine Kinase 46 U/L (35-230) 03/23/18 02:30 Troponin I < 0.01 ng/mL 03/23/18 02:30 C-React Prot High Sens > 15.00 mg/L (1.00-3.00) H 03/15/18 03:30 NT-Pro-B Natriuret Pep 197 pg/mL (0-450) 03/15/18 03:30 Total Protein 5.5 g/dL (5.8-8.3) L 03/25/18 07:01 Albumin 1.9 g/dL (3.0-4.8) L 03/25/18 07:01 Globulin 3.6 gm/dL 03/25/18 07:01 Albumin/Globulin Ratio 0.5 (1.1-1.8) L 03/25/18 07:01 Triglycerides 100 mg/dL (35-160) 03/15/18 03:30 Cholesterol 254 mg/dL (130-200) H 03/15/18 03:30 LDL Cholesterol Direct 118 mg/dL (0-129) 03/15/18 03:30 HDL Cholesterol 61 mg/dL (29-60) H 03/15/18 03:30 Lipase 74 U/L (23-300) 03/11/18 21:35 Vitamin B12 > 1000 pg/mL (239-931) H 03/15/18 03:30 Procalcitonin 1.82 NG/ML (0.19-0.49) H 03/23/18 15:00 Free T4 1.13 ng/dL (0.78-2.19) 03/23/18 13:45 Thyroxine (T4) 6.6 ug/dL (5.5-11.0) 03/15/18 03:30 Total T3 0.62 ng/mL (0.97-1.69) L 03/15/18 03:30 TSH 3rd Generation 0.29 mIU/mL (0.46-4.68) L 03/23/18 13:45 Arterial Blood Potassium 3.1 mmol/L (3.6-5.2) L 03/23/18 03:30 Venous Blood Potassium 3.0 mmol/L (3.6-5.2) L 03/23/18 13:45 Urine Color yellow (YELLOW) 03/11/18 20:15 Urine Appearance Sl cloudy (CLEAR) 03/11/18 20:15 Urine pH 8.5 (4.7-8.0) 03/11/18 20:15 Ur Specific [place] 1.010 (1.005-1.035) 03/11/18 20:15 Urine Protein 30 mg/dL (<30 mg/dL) H 03/11/18 20:15 Urine Glucose (UA) 500 mg/dL (NEGATIVE) H 03/11/18 20:15 Urine Ketones Trace mg/dL (NEGATIVE) H 03/11/18 20:15 Urine Blood Negative (NEGATIVE) 03/11/18 20:15 Urine Nitrate Negative (NEGATIVE) 03/11/18 20:15 Urine Bilirubin Negative (NEGATIVE) 03/11/18 20:15 Urine Urobilinogen 2.0 E.U./dL (<1 E.U./dL) H 03/11/18 20:15 Ur Leukocyte Esterase Negative Tank/uL (NEGATIVE) 03/11/18 20:15 Urine RBC 2 - 5 /hpf (0-2) 03/11/18 20:15 Urine WBC 5 - 10 /hpf (0-6) 03/11/18 20:15 Ur Epithelial Cells 6 - 8 /hpf (0-5) 03/11/18 20:15 Urine Opiates Screen Negative (NEGATIVE) 03/11/18 20:15 Urine Methadone Screen Negative (NEGATIVE) 03/11/18 20:15 Ur Barbiturates Screen Negative (NEGATIVE) 03/11/18 20:15 Ur Phencyclidine Scrn Negative (NEGATIVE) 03/11/18 20:15 Ur Amphetamines Screen Negative (NEGATIVE) 03/11/18 20:15 U Benzodiazepines Scrn Negative (NEGATIVE) 03/11/18 20:15 U Oth Cocaine Metabols Negative (NEGATIVE) 03/11/18 20:15 U Cannabinoids Screen Negative (NEGATIVE) 03/11/18 20:15 Alcohol, Quantitative < 10 mg/dL (0-10) 03/11/18 18:45 Blood Type O POSITIVE 03/15/18 03:30 Antibody Screen Negative 03/15/18 03:30 BBK History Checked Patient has bt 03/15/18 03:30 Attending/Attestation - Attestation I have personally seen and examined this patient.: Yes I have fully participated in the care of the patient.: Yes I have reviewed all pertinent clinical information, including history, physical exam and plan: Yes Notes (Text): 03/25/18 15:45 Medical record note made by the resident after discussion with my direction and input after the patient was personally seen and examined by me. I have reviewed the chart and agree that the record accurately reflects by personal performance of the history, physical exam, data review, and medical decision-making, in the course for the patient. I have also personally directed the plan of care. 62 yrs old male with PMH of Hep c ,chronic liver disease, Thrombocytopenia , Ascites was admitted with change of mental status due to hepatic encephlopathy.He initially responded well to lactulose , however his mental status deteriorated and Patient developed intracranial hemorrhage with midline shift on 03/15/18, he was intubated for air way protection ..Patient was evaluated by Neuro surgery , he was not a cabdidate for any Neuro surgery intervention.He had cardiac arrest on 03/23/18 and was resuscitated.He was unresponsive today, Pupils were dilated.There was no gag reflex and no respiration. Brain Flow nuclear study today was consistent with brain and after discussion with family , patient was extubated , he after extubation.
[2018-03-25 15:14] VITALS: BP 118/62; PULSE 31; RESP 18; TEMP 95.5; O2SAT 54
--- NOTE | 2018-03-25 15:16 | CP.PCM.PN ---
Subjective - Date & Time of Evaluation Date of Evaluation: 03/25/18 Time of Evaluation: 14:30 - Subjective Subjective: Mr.Fathy Feng is intubated off sedation and is now undergoing brain protocol. I conducted cold calorics with no eye movement noted, no blink, no gag, no response to painful stimuli, no spontaneous movement. EEG: shows no normal brain activity. No brain flow on brain flow study. Objective - Vital Signs/Intake and Output Vital Signs (last 24 hours): Temp Pulse Resp BP Pulse Ox 95.4 F L 87 21 112/59 L 97 03/25/18 11:30 03/25/18 11:30 03/24/18 15:59 03/25/18 11:30 03/25/18 11:30 Intake and Output: 03/25/18 03/25/18 06:59 18:59 Intake Total 2153 255 Output Total 50 Balance 2103 255 - Medications Medications: Current Medications Bacitracin (Bacitracin) 1 ea TOP BID PRN PRN Reason: ARM BLISTERS Last Admin: 03/23/18 14:10 Dose: 1 ea Hydrocortisone Sodium Succinate (Solu-Cortef) 80 mg IVP Q8 KAVIN Last Admin: 03/25/18 05:00 Dose: 80 mg Sodium Chloride (Hypertonic Saline 3%) 500 mls @ 30 mls/hr IV .[id number] KAVIN Last Admin: 03/15/18 10:50 Dose: 30 mls/hr Levetiracetam (Keppra 500mg Ivpb) 500 mg in 100 mls @ 400 mls/hr IV Q12 KAVIN Last Admin: 03/25/18 10:00 Dose: 400 mls/hr Multivitamins/Vitamin C 10 ml/ (Dextrose) 1,010 mls @ 75 mls/hr IV .[id number] KAVIN Last Admin: 03/25/18 10:01 Dose: 75 mls/hr NOREPINEPHRINE BIT/0.9 % NACL (Levophed 4 Mg/ 250 Ml Ns Premixed) 4 mg in 250 mls @ 15 mls/hr IV .[id number] PRN; Protocol; 4 MCG/MIN PRN Reason: TITRATE PER MD ORDER Last Admin: 03/25/18 09:11 Dose: 8 mcg/min, 30 mls/hr Vancomycin HCl (Vancomycin 1gm) 1 gm in 250 mls @ 167 mls/hr IVPB Q12H [facility]AVIN PRN Reason: Protocol Last Admin: 03/25/18 09:58 Dose: 167 mls/hr Phenylephrine HCl 40 mg/ (Sodium Chloride) 254 mls @ 38.1 mls/hr IV .[id number] PRN ; Protocol; 100 MCG/MIN PRN Reason: TITRATE PER MD ORDER Last Admin: 03/25/18 09:10 Dose: 40 mcg/min, 15.24 mls/hr Meropenem (Merrem Iv 1 Gm Premix) 50 mls @ 100 mls/hr IVPB Q12 [facility]IN PRN Reason: Protocol Last Admin: 03/25/18 09:59 Dose: 100 mls/hr Insulin Detemir (Levemir) 20 unit SC Q12H [facility]IN Last Admin: 03/25/18 08:20 Dose: 20 unit Insulin Human Regular (Humulin R Low) 0 units SC ACHS [facility]IN PRN Reason: Protocol Last Admin: 03/25/18 08:21 Dose: 1 units Labetalol HCl (Trandate) 10 mg IV Q4 PRN PRN Reason: Blood Pressure 220/110 & above Last Admin: 03/23/18 00:52 Dose: 2 ml Lactulose (Enulose) 30 gm PO Q4H [facility] Last Admin: 03/25/18 09:57 Dose: 30 gm Levothyroxine Sodium (Synthroid) 75 mcg PO 0600 [facility] Last Admin: 03/25/18 05:00 Dose: 75 mcg Ondansetron HCl (Zofran Inj) 4 mg IVP Q6H PRN PRN Reason: Nausea/Vomiting Last Admin: 03/15/18 00:14 Dose: 4 mg Pantoprazole Sodium (Protonix Inj) 40 mg IVP DAILY [facility] Last Admin: 03/24/18 09:50 Dose: 40 mg Rifaximin (Xifaxan) 550 mg PO BID [facility]IN PRN Reason: Protocol Last Admin: 03/25/18 09:58 Dose: 550 mg Sucralfate (Carafate Oral Susp) 1 gm PO 0600,1600 [facility] Last Admin: 03/25/18 05:00 Dose: 1 gm - Labs Labs: 03/25/18 07:01 03/25/18 07:01 PT 29.8 SECONDS (9.4-12.5) H 03/25/18 07:01 INR 2.54 (0.93-1.08) H 03/25/18 07:01 APTT 53.9 Seconds (25.1-36.5) H 03/25/18 07:01 Assessment and Plan - Assessment and Plan (Free Text) Assessment: 62 yr old male who is now brain . Procedures and prognosis was discussed with family and they will decide re: withdrawal of care.
== END 2018-03-25 14:48 | DRG 441 ==
LOC: ED 18:10 → ERH 20:39 → 2RNO 03-12 00:45 → 5RSO 03-13 20:27 → CCU 03-15 06:14
PROVIDERS: ADMIT Internal Medicine; ATTEND Hospitalist
PROC: 5A1955Z Respiratory Ventilation, Greater than 96 Consecutive Hours (ICD-10-PCS; principal; 2018-03-15)
PROC: 0BH17EZ Insertion of Endotracheal Airway into Trachea, Via Natural or Artificial Opening (ICD-10-PCS; 2018-03-15)
PROC: 06HY33Z Insertion of Infusion Device into Lower Vein, Percutaneous Approach (ICD-10-PCS; 2018-03-15)
PROC: 30233K1 Transfusion of Nonautologous Frozen Plasma into Peripheral Vein, Percutaneous Approach (ICD-10-PCS; 2018-03-15)
PROC: 30233R1 Transfusion of Nonautologous Platelets into Peripheral Vein, Percutaneous Approach (ICD-10-PCS; 2018-03-15)
PROC: 02HV33Z Insertion of Infusion Device into Superior Vena Cava, Percutaneous Approach (ICD-10-PCS; 2018-03-19)
PROC: B548ZZA Ultrasonography of Superior Vena Cava, Guidance (ICD-10-PCS; 2018-03-19)
DX: K72.00 Acute and subacute hepatic failure without coma (principal); I61.1 Nontraumatic intracerebral hemorrhage in hemisphere, cortical; J96.01 Acute respiratory failure with hypoxia; I60.9 Nontraumatic subarachnoid hemorrhage, unspecified; G93.6 Cerebral edema; A41.9 Sepsis, unspecified organism; R65.21 Severe sepsis with septic shock; R64 Cachexia; R18.8 Other ascites; I85.10 Secondary esophageal varices without bleeding; G93.1 Anoxic brain damage, not elsewhere classified; Z99.11 Dependence on respirator [ventilator] status; N17.9 Acute kidney failure, unspecified; B18.2 Chronic viral hepatitis C; K74.60 Unspecified cirrhosis of liver; K40.20 Bilateral inguinal hernia, without obstruction or gangrene, not specified as recurrent; E11.65 Type 2 diabetes mellitus with hyperglycemia; D69.6 Thrombocytopenia, unspecified; E83.42 Hypomagnesemia; D70.9 Neutropenia, unspecified; R40.2430 Glasgow coma scale score 3-8, unspecified time; Z68.20 Body mass index [BMI] 20.0-20.9, adult; I10 Essential (primary) hypertension; N50.89 Other specified disorders of the male genital organs; S91.115A Laceration without foreign body of left lesser toe(s) without damage to nail, initial encounter; F17.210 Nicotine dependence, cigarettes, uncomplicated; Z79.4 Long term (current) use of insulin; Z91.14 Patient's other noncompliance with medication regimen; Z91.19 Patient's noncompliance with other medical treatment and regimen